=== PATIENT | female | born 1945 | race American Indian/Alaskan Native ===

== ENCOUNTER 2017-01-09 15:57 | Inpatient (IN) | payer MEDICARE ==
[2017-01-09] MEDS ORDERED: Sodium Chloride 0.9% 1,000 ML IV STA ×2 (16:05→18:07)
[2017-01-09] MEDS ORDERED: Atropine Sulfate 1 mg/ml Vial (1 ml) IVP ONE (16:05)
--- NOTE | 2017-01-09 16:07 | ED PDOC ---
HPI: SOB/CHF/COPD Time Seen by Provider: 01/09/17 16:03 Chief Complaint (Nursing): Respiratory Distress Chief Complaint (Provider): Respiratory Distress History Per: EMS History/Exam Limitations: clinical condition Onset/Duration Of Symptoms: Mins Current Symptoms Are (Timing): Still Present Additional Complaint(s): Lucita Gardner, a 71 year old female,with a past medical history of congestive heart failure and cardiac arrhythmia is brought into the ED via EMS for respiratory failure. As per EMS, the patient was found unresponsive by her longterm attendants. EMS state that chest compressions were started by longterm staff. However they state that the patient did have a pulse on their arrival but with agonal breathing and that is when she was intubated. PMD: Lorena Elmore - Risk Factors PE Risk Factors: Pos: CHF Past Medical History Reviewed: Historical Data, Nursing Documentation, Vital Signs Vital Signs: Last Vital Signs Temp 95 F L 01/09/17 19:00 Pulse 91 H 01/09/17 21:00 Resp 22 01/09/17 21:00 BP 111/53 L 01/09/17 21:00 Pulse Ox 98 01/09/17 21:00 - Medical History PMH: Anemia, Atrial Fibrillation, Cardia Arrhythmia, CHF, Dementia, Emphysema, HTN, Hypercholesterolemia Denies: Asthma, COPD, Chronic Kidney Disease - Family History Family History: States: Unknown Family Hx - Living Arrangements Living Arrangements: [facility] - Immunization History Hx Tetanus Toxoid Vaccination: No Hx Influenza Vaccination: Yes (2015) Hx Pneumococcal Vaccination: No - Home Medications Home Medications: Ambulatory Orders Medication Instructions Recorded Cyproheptadine [Periactin] 4 mg PO BIDPC tab 01/01/17 Digoxin [Lanoxin] 0.125 mg PO DAILY@1800 tab 01/01/17 Lactulose [Enulose] 20 gm PO DAILY udc 01/01/17 Metoprolol Tartrate [Lopressor] 12.5 mg PO BID tab 01/01/17 Rivaroxaban [Xarelto] 15 mg PO DAILY tab 01/01/17 hydrALAZINE [Apresoline] 25 mg PO BID tab 01/01/17 Acetaminophen [Tylenol 325mg tab] 650 mg PO Q4H PRN 01/09/17 Acetaminophen [Tylenol 325mg tab] 650 mg PO Q4H PRN 01/09/17 Mag Hydrox/Aluminum Hyd/Simeth 30 ml PO Q4H PRN 01/09/17 [Maalox Advanced Suspension] Magnesium Hydroxide [Milk Of 30 ml PO DAILY PRN 01/09/17 Magnesia] - Allergies Allergies/Adverse Reactions: Allergies Allergy/AdvReac Type Severity Reaction Status Date / Time No Known Allergies Allergy Verified 12/16/16 15:11 Review of Systems Review Of Systems: ROS cannot be obtained secondary to pt's inabilty to answer questions. Physical Exam - Reviewed Nursing Documentation Reviewed: Yes Vital Signs Reviewed: Yes - Physical Exam Appears: Positive for: In Acute Distress (obtunded, appears chronically ill and cachectic) Head Exam: Positive for: ATRAUMATIC, NORMOCEPHALIC Skin: Positive for: Dry (and cool extremities) Eye Exam: Positive for: PERRL (2mm) ENT: Positive for: Other (intubated ETT minimal secretions) Neck: Positive for: Trachea Midline (RIGHT EJ IV peripheral line in place) Cardiovascular/Chest: Positive for: Bradycardia, Irregularly Irregular. Negative for: Murmur Respiratory: Positive for: Rhonchi (equal breath sounds and chest rise), Respiratory Distress Gastrointestinal/Abdominal: Positive for: Soft, Other (PEG in place) Back: Positive for: Normal Inspection Extremity: Positive for: Normal ROM. Negative for: Deformity Lymphatic: Negative for: Adenopathy Neurologic/Psych: Positive for: Alert. Negative for: Motor/Sensory Deficits - Laboratory Results Result Diagrams: 01/09/17 16:15 01/09/17 16:15 - ECG ECG Rhythm: Positive for: Atrial Fibrillation (slow) O2 Sat by Pulse Oximetry: 100 Pulse Ox Interpretation: Normal (on vent) - Radiology X-Ray: Read By Radiologist - Critical Care Total Time (In Min): 45 Documented Critical Care: Time excludes all time spent performint seperately billable procedures Medical Decision Making Medical Decision Makin Initial Impression: 71 y/o female presenting with respiratory failure Initial Plan: * EKG * B-type natriuretic * CMP * Digoxin * Magnesium * Phosphorous * Troponin * Udip * CBC * Partial Thromboplastin * Chest x-ray * Atropine sulfate * NS 250ml Norepinephrine 4mg * NS 1000ml IV 1000mls/hr * Blood Culture * Urine Culture * Accucheck * Reevaluation Accession No. : [id number] Patient Name / ID : KEEGAN SNOW / [id number] Exam Date : 01/09/2017 16:06:22 ( Approved ) Study Comment : Sex / Age : F / 71Y Creator : Alfredito Kevin MD Dictator : Alfredito Kevin MD Farm Equipment Assembler : Soccer Coach : Alfredito Kevin MD Approver2 : Report Date : 01/09/2017 16:38:01 My Comment : HISTORY: suzi COMPARISON: No prior. FINDINGS: Endotracheal tube is identified placed terminating in the plane of the trachea below the level of clavicles. The tube is curved abutting the right side of the trachea. LUNGS: Medial left basilar airspace disease is identified. Trace disc disease is suspected at the right base. PLEURA: No right pleural effusion. No pneumothorax bilaterally. Trace of pleural effusion not excluded. CARDIOVASCULAR: Cardiomegaly is likely present. No pulmonary vascular derangement appreciable. OSSEOUS STRUCTURES: No significant abnormalities. VISUALIZED UPPER ABDOMEN: Normal. OTHER FINDINGS: None. IMPRESSION: Cardiomegaly is likely. No pulmonary derangement. Bibasilar airspace disease is identified. Trace left pleural effusion suspected. Atropine given for HR of 40s. Levophed started immediately for low BP, in addition to aggressive IVF hydration Previous chart quickly reviewed: dementia, CHF, hyperkalemia, atrial fib. Recent admission to [facility], [place]: severe malnutrition and renal insufficiency and PEG tube placed and pt dc'd to longterm 2 days ago. ABG demonstrate acidosis, elevated lactic acid, hypeglycemia and hyperkalemia. Albuterol neb, insulin IV, bicarb IV ordered. Labs demonstrated again renal insufficiency, hyperglycemia, anemia, and hyperkalemia. JANE Reyes [employer] and [facility] Attempted to call Next of Kin John Paul Garcia and Contact Yasmin Garcia at phone numbers available to me at the time and unable to get through to contacts. Scribe Attestation Documented by Ester Ocasio acting as a scribe for Marline Palacio MD. Provider Attestation All medical record entries made by the Scribe were at my direction and personally dictated by me. I have reviewed the chart and agree that the record accurately reflects my personal performance of the history, physical exam, medical decision making, and the department course for this patient. I have also personally directed, reviewed, and agree with the discharge instructions and disposition. Disposition - Clinical Impression Clinical Impression: Hyperkalemia, Dehydration, Respiratory failure, DKA (diabetic ketoacidoses), Septic shock - Disposition Disposition Time: 17:00 Condition: CRITICAL - Pt Status Changed To: Hospital Disposition Of: Inpatient - Admit Certification Admit to Inpatient:: After my assessment, the patient will require hospitalization for at least two midnights. This is because of the severity of symptoms shown, intensity of services needed, and/or the medical risk in this patient being treated as an outpatient. - POA Present On Arrival: Poor Glycemic Control Proc: Central Venous Access - Time Performed Time Performed: 17:00 - Time Out Time Out: Side verified, Site verified, Patient ID confirmed, Sterile procedures obs. - Procedure Procedure: Central Line placement: Left Technique:: Ultrasound guidance (static), Femoral vein (LEFT) - Consent obtained Consent obtained: Emergent consent implied - Performed by Performed by: Attending Physician - Indications Indication(s):: Mult.intravenous meds, Centrally admin. meds, Rapid fluid infusion Contraindications: None Tube type:: Triple lumen - Number of Attempts Attempts: 2 (initially attempted RIGHT femoral but unable to forward cath) - Line sutured in place Line sutured in place:: Yes - Patient tolerated procedure Patient Tolerated Procedure:: Well
[2017-01-09 16:18] LABS: ABG ALLEN TEST YES; ARTERIAL BLOOD GAS HCO3 28.9 mmol/L (21-28); ARTERIAL BLOOD GAS PH 7.23 (7.35-7.45); ARTERIAL BLOOD GAS PO2 299 mm/Hg (80-100)
[2017-01-09] MEDS ORDERED: Sodium Bicarbonate 7.5% (0.9 MEQ/ML) 50ML INJ IV STA (16:20)
[2017-01-09] MEDS ORDERED: Albuterol 0.083% Inhal Sol (2.5 mg/3 mL) UD IH STA (16:21)
[2017-01-09] MEDS ORDERED: Insulin Regular 100 units/ml IVP STA (16:21)
[2017-01-09] MEDS ORDERED: Albuterol 0.083% Inhal Sol (2.5 mg/3 mL) UD ONE (16:29)
--- NOTE | 2017-01-09 16:39 | RAD ---
HISTORY: suzi COMPARISON: No prior. FINDINGS: Endotracheal tube is identified placed terminating in the plane of the trachea below the level of clavicles. The tube is curved abutting the right side of the trachea. LUNGS: Medial left basilar airspace disease is identified. Trace disc disease is suspected at the right base. PLEURA: No right pleural effusion. No pneumothorax bilaterally. Trace of pleural effusion not excluded. CARDIOVASCULAR: Cardiomegaly is likely present. No pulmonary vascular derangement appreciable. OSSEOUS STRUCTURES: No significant abnormalities. VISUALIZED UPPER ABDOMEN: Normal. OTHER FINDINGS: None. IMPRESSION: Cardiomegaly is likely. No pulmonary derangement. Bibasilar airspace disease is identified. Trace left pleural effusion suspected.
[2017-01-09 16:42] LABS: BASO % 0.3 % (0.0-2.0); EOS % 0.2 % (0.0-4.0); LYMPH % 26.3 % (20.0-40.0); MEAN CELL VOLUME 95.7 fl (81.0-99.0); MEAN CORPUSCULAR HEMOGLOBIN 29.8 pg (27.0-31.0); MEAN CORPUSCULAR HGB CONC 31.1 g/dL (33.0-37.0); MEAN PLATELET VOLUME 8.8 fl (7.2-11.7); MONO # 0.2 K/uL (0.0-0.8); MONO % 5.5 % (0.0-10.0); NEUT # 2.6 K/uL (1.8-7.0); NEUT % 67.7 % (50.0-75.0); NRBC % 0.5 % (0.0-0.0); RED CELL DISTRIBUTION WIDTH 20.4 % (11.5-14.5); WHITE BLOOD COUNT 3.8 K/uL (4.8-10.8)
[2017-01-09 16:46] LABS: PARTIAL THROMBOPLASTIN TIME 30.3 Seconds (25.6-37.1)
[2017-01-09 16:49] LABS: ALB/GLOB RATIO 0.8 (1.0-2.1); BILIRUBIN,TOTAL 0.2 mg/dl (0.2-1.3); CALCIUM 8.9 mg/dL (8.4-10.2); MAGNESIUM 2.8 MG/DL (1.6-2.3); PHOSPHOROUS 7.5 mg/dl (2.5-4.5); TOTAL PROTEIN 5.9 G/DL (6.3-8.2)
[2017-01-09 17:01] LABS: TROPONIN I 0.099 ng/mL (0.00-0.120)
[2017-01-09 17:10] LABS: POTASSIUM 6.8 MMOL/L (3.6-5.0)
[2017-01-09 17:29] LABS: RBC URINE 29 /hpf (0-3); URINE BACTERIA MOD (<OCC); URINE BILIRUBIN NEGATIVE (NEGATIVE); URINE COLOR AMBER (YELLOW); URINE GLUCOSE (UA) 50 mg/dL (Normal); URINE KETONE NEGATIVE (NEGATIVE); URINE LEUKOCYTE ESTERASE LARGE Leu/uL (Negative); URINE PROTEIN 100 mg/dL (NEGATIVE); URINE UROBILINOGEN 0.2-1.0 mg/dL (0.2-1.0); WBC URINE 92 /hpf (0-5)
[2017-01-09 17:30] LABS: URINE BLOOD MODERATE (NEGATIVE)
[2017-01-09] MEDS ORDERED: Calcium Gluconate 4.65 mEq/10 ml Inj IV ONE (17:45)
[2017-01-09] MEDS ORDERED: Sod Polystyrene Sulf 15 gm/60 ml Susp PO ONE (18:07)
[2017-01-09] MEDS ORDERED: Sodium Chloride 0.9% 1,000 ML IV SCH (18:15)
--- NOTE | 2017-01-09 18:21 | CP.CCUPN ---
CCU Subjective - Physician Review Subjective (Free Text): ICU admission and consultation: [id number] transferred from [place] after being found unresponsive, with agonal breathing, had no loss of pulses , but intubated by EMS and CPR with chest compressions administered. Remained hypotensive, given 1000ml NSS fluid challenge initially and additional 1.5 L Saline as well, IV Bicarb 1 amp given, started on Levophed drip. Atropine 1 mg given for bradycardia with HR 46. Other vitals and I/O's reviewed. ALLERGIES: NKDA Home meds: Periactin, Digoxin, Apresoline, Lactulose, MgOH, Lopressor, Xarelto. ROS: Unobtainable due to comatose state and intubation. No other pertinent negs or positives on 10+ system review. PMSFH: Recent PEG placement at and discharged from [facility] for severe malnutrition; bed bound, CHF, A Fib, Anemia, Atrial Fibrillation, severe Dementia, Emphysema, HTN, Hypercholesterolemia All Nursing and physician documentation reviewed to date; no new pertinent info noted relevant to current medical problems. 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 CXR: ETT position OK above collin, Bi- basilar interstitial changes. MAJOR PROBLEMS: 1. Acute Hypercarbic Resp Failure, 2 metabolic Encephalopathy, r/o Toxic Drug effects (Cyprohepatadine) versus CHF and Pneumonia 2. Bilateral Pneumonia, suspect aspiration event 3. Azotemia with Dehydration and Hyperkalemia 4. Chronic Disease Anemia, r/o acute GI Blood loss. 5. A Fib with slow VR, r/o Digoxin / Lopressor effect-Toxicity 6. Transaminitis / Abnormal LFTs PLAN: 1. Check repeat ABG on current MV setting: AC 14, breathing at 14m 300ml TV, 50% oxygen. Further adjustments pending repeat pCO2 level and pO2 level assessment. Avoid too rapid correction in pCO2. 2. CT Brain. Hold Xarelto. Neurochecks Q2H, Seizure precautions, HOB Elevation. 3. Check repeat BMP, serial Lactates till normalized. 4. Panculture, start empiric abx coverage against healthcare-ass[facility] organisms. 5. Repeat Accucheck BS levels, unclear if EMS administered D50 for unresponsiveness, versus occult h/o DM and has component of DKA or HNKC state. 6. Hold all [facility] meds for now. 7. Check Digoxin level, watch K levels, may need Digibind. 8. Kayexalate administration. Give supplemental calcium. 9. ECHO 10. Check old medical records from previous hospitalizations at [facility]. 11. Full code status for now as per family. CCU Objective - Vital Signs / Intake & Output Vital Signs (Last 4 hours): Vital Signs Temp Pulse Resp BP Pulse Ox 01/09/17 17:50 96.3 F L 01/09/17 17:43 86 16 98/60 L 100 01/09/17 17:40 86 16 108/64 100 01/09/17 16:15 14 99 01/09/17 15:59 49 L 16 88/64 L Intake and Output (Last 8hrs): Intake & Output 01/09/17 01/09/17 01/09/17 06:59 14:59 22:59 Weight 100 lb - Physical Exam Physical Exam Limitations: Positive for: Altered Mental Status Head: Positive for: Normocephalic Pupils: Positive for: PERRL Extroacular Muscles: Positive for: EOMI Conjunctiva: Positive for: Normal. Negative for: Icteric Mouth: Positive for: Moist Mucous Membranes Neck: Positive for: JVD. Negative for: Meningeal Signs Respiratory/Chest: Positive for: Decreased Breath Sounds, Rales. Negative for: Accessory Muscle Use, Wheezes Cardiovascular: Positive for: Irregular Rhythm, Bradycardic. Negative for: Murmurs, Rub Abdomen: Positive for: Normal Bowel Sounds, Other (PEG intact). Negative for: Tenderness, Distention Lower Extremity: Positive for: NORMAL PULSES. Negative for: CALF TENDERNESS, Cyanosis Neurological: Positive for: Other (not following any commands) Skin: Positive for: Warm. Negative for: Rashes - Medications Active Medications: Active Medications Generic Name Dose Route Start Last Admin Trade Name Freq PRN Reason Stop Dose Admin Calcium Gluconate 4.6 meq 01/09/17 17:45 Calcium Gluconate IV 01/09/17 17:46 ONCE ONE Famotidine 20 mg 01/09/17 21:00 Pepcid IVP Q12 LINA Norepinephrine Bitartrate 4 mg 254 mls @ 7.62 mls/hr 01/09/17 16:15 01/09/17 16:00 / Sodium Chloride IV 2 mcg/min .Q24H LINA 7.62 mls/hr Protocol Administration 2 MCG/MIN Vancomycin HCl 750 mg/ Sodium 250 mls @ 166.667 mls/hr 01/09/17 17:54 Chloride IVPB 01/09/17 19:23 STAT STA Piperacillin Sod/Tazobactam 100 mls @ 100 mls/hr 01/09/17 17:54 Sod 2.25 gm/ Sodium Chloride IV 01/09/17 18:53 STAT STA Sodium Chloride 700 mls @ 700 mls/hr 01/09/17 18:06 Sodium Chloride 0.9% IV 01/09/17 19:05 .Q1H STA Sodium Chloride 1,000 mls @ 1,000 mls/hr 01/09/17 18:07 Sodium Chloride 0.9% IV 01/09/17 19:06 .Q1H STA Sodium Chloride 1,000 mls @ 100 mls/hr 01/09/17 18:15 Sodium Chloride 0.9% IV 01/10/17 18:11 .Q10H LINA Vancomycin HCl 1 gm/ Sodium 250 mls @ 166.667 mls/hr 01/09/17 17:53 Chloride IVPB 01/09/17 19:22 ONCE ONE Piperacillin Sod/Tazobactam 100 mls @ 100 mls/hr 01/09/17 22:00 Sod 2.25 gm/ Sodium Chloride IVPB Q6 [facility] Insulin Human Regular 0 units 01/09/17 23:00 Humulin R SC ACCU-CHECK [facility] Protocol Sodium Polystyrene Sulfonate 30 gm 01/09/17 18:07 Kayexalate Oral Susp PO 01/09/17 18:08 ONCE ONE - Patient Studies Lab Studies: Lab Studies 01/09/17 01/09/17 01/09/17 Range/Units 17:02 16:20 16:20 WBC (4.8-10.8) K/uL RBC (3.80-5.20) Mil/uL Hgb (12.0-16.0) g/dL Hct (34.0-47.0) % MCV (81.0-99.0) fl MCH (27.0-31.0) pg MCHC (33.0-37.0) g/dL RDW (11.5-14.5) % Plt Count (130-400) K/uL MPV (7.2-11.7) fl Neut % (Auto) (50.0-75.0) % Lymph % (Auto) (20.0-40.0) % [place] % (Auto) (0.0-10.0) % Eos % (Auto) (0.0-4.0) % Baso % (Auto) (0.0-2.0) % Neut # (1.8-7.0) K/uL Lymph # (1.0-4.3) K/uL [place] # (0.0-0.8) K/uL Eos # (0.0-0.7) K/uL Baso # (0.0-0.2) K/uL PT 11.0 (9.8-13.1) Seconds INR 1.1 (0.9-1.2) APTT 30.3 (25.6-37.1) Seconds pCO2 (35-45) mm/Hg pO2 (80-100) mm/Hg HCO3 (21-28) mmol/L ABG pH (7.35-7.45) ABG Total CO2 (22-28) mmol/L ABG O2 Saturation (95-98) % ABG Base Excess (-2.0-3.0) mmol/L Rakan Test ABG Potassium (3.6-5.2) mmol/L A-a O2 Difference mm/Hg Sodium (132-148) mmol/L Chloride (98-107) mmol/L Glucose (65-105) mg/dL Lactate (0.7-2.1) mmol/L FiO2 % Crit Value Called To Crit Value Called By Crit Value Read Back Blood Gas Notified Time Potassium (3.6-5.0) MMOL/L Carbon Dioxide (22-30) mmol/L Anion Gap (10-20) BUN (7-17) mg/dl Creatinine (0.7-1.2) mg/dL Est GFR ( Amer) Est GFR (Non-Af Amer) Random Glucose (65-105) mg/dL Calcium (8.4-10.2) mg/dL Phosphorus (2.5-4.5) mg/dl Magnesium (1.6-2.3) MG/DL Total Bilirubin (0.2-1.3) mg/dl AST (14-36) U/L ALT (9-52) U/L Alkaline Phosphatase (38-126) U/L Troponin I (0.00-0.120) ng/mL NT-Pro-B Natriuret Pep (0-900) pg/ml Total Protein (6.3-8.2) G/DL Albumin (3.5-5.0) g/dL Globulin (2.2-3.9) gm/dL Albumin/Globulin Ratio (1.0-2.1) Arterial Blood Potassium (3.6-5.2) mmol/L Urine Color Lisa (YELLOW) Urine Clarity Cloudy (Clear) Urine pH 5.0 (5.0-8.0) Ur Specific [place] 1.018 (1.003-1.030) Urine Protein 100 (NEGATIVE) mg/dL Urine Glucose (UA) 50 (Normal) mg/dL Urine Ketones Negative (NEGATIVE) mg/dL Urine Blood Moderate (NEGATIVE) Urine Nitrate Negative (NEGATIVE) Urine Bilirubin Negative (NEGATIVE) Urine Urobilinogen 0.2-1.0 (0.2-1.0) mg/dL Ur Leukocyte Esterase Large (Negative) Nabeel/uL Urine RBC (Auto) 29 H (0-3) /hpf Urine Microscopic WBC 92 H (0-5) /hpf Ur Squamous Epith Cells 1 (0-5) /hpf Urine Bacteria Mod H (<OCC) Hyaline Casts 0-2 (0-2) /hpf Digoxin (0.8-2.0) ng/mL Blood Type O POSITIVE Antibody Screen Negative BBK History Checked Patient has bt 01/09/17 01/09/17 01/09/17 Range/Units 16:20 16:15 16:15 WBC 3.8 L (4.8-10.8) K/uL RBC 2.82 L (3.80-5.20) Mil/uL Hgb 8.4 L (12.0-16.0) g/dL Hct 27.0 L (34.0-47.0) % MCV 95.7 (81.0-99.0) fl MCH 29.8 (27.0-31.0) pg MCHC 31.1 L (33.0-37.0) g/dL RDW 20.4 H (11.5-14.5) % Plt Count 279 (130-400) K/uL MPV 8.8 (7.2-11.7) fl Neut % (Auto) 67.7 (50.0-75.0) % Lymph % (Auto) 26.3 (20.0-40.0) % [place] % (Auto) 5.5 (0.0-10.0) % Eos % (Auto) 0.2 (0.0-4.0) % Baso % (Auto) 0.3 (0.0-2.0) % Neut # 2.6 (1.8-7.0) K/uL Lymph # 1.0 (1.0-4.3) K/uL [place] # 0.2 (0.0-0.8) K/uL Eos # 0.0 (0.0-0.7) K/uL Baso # 0.0 (0.0-0.2) K/uL PT (9.8-13.1) Seconds INR (0.9-1.2) APTT (25.6-37.1) Seconds pCO2 (35-45) mm/Hg pO2 (80-100) mm/Hg HCO3 (21-28) mmol/L ABG pH (7.35-7.45) ABG Total CO2 (22-28) mmol/L ABG O2 Saturation (95-98) % ABG Base Excess (-2.0-3.0) mmol/L Rakan Test ABG Potassium (3.6-5.2) mmol/L A-a O2 Difference mm/Hg Sodium 143 (132-148) mmol/L Chloride 98 (98-107) mmol/L Glucose (65-105) mg/dL Lactate (0.7-2.1) mmol/L FiO2 % Crit Value Called To Crit Value Called By Crit Value Read Back Blood Gas Notified Time Potassium 6.8 H* (3.6-5.0) MMOL/L Carbon Dioxide 31 H (22-30) mmol/L Anion Gap 21 H (10-20) BUN 54 H (7-17) mg/dl Creatinine 1.3 H (0.7-1.2) mg/dL Est GFR ( Amer) 49 Est GFR (Non-Af Amer) 40 Random Glucose 404 H* (65-105) mg/dL Calcium 8.9 (8.4-10.2) mg/dL Phosphorus 7.5 H (2.5-4.5) mg/dl Magnesium 2.8 H (1.6-2.3) MG/DL Total Bilirubin 0.2 (0.2-1.3) mg/dl AST 284 H D (14-36) U/L ALT 138 H (9-52) U/L Alkaline Phosphatase 139 H (38-126) U/L Troponin I 0.0990 (0.00-0.120) ng/mL NT-Pro-B Natriuret Pep 93224 H (0-900) pg/ml Total Protein 5.9 L (6.3-8.2) G/DL Albumin 2.7 L (3.5-5.0) g/dL Globulin 3.2 (2.2-3.9) gm/dL Albumin/Globulin Ratio 0.8 L (1.0-2.1) Arterial Blood Potassium (3.6-5.2) mmol/L Urine Color (YELLOW) Urine Clarity (Clear) Urine pH (5.0-8.0) Ur Specific [place] (1.003-1.030) Urine Protein (NEGATIVE) mg/dL Urine Glucose (UA) (Normal) mg/dL Urine Ketones (NEGATIVE) mg/dL Urine Blood (NEGATIVE) Urine Nitrate (NEGATIVE) Urine Bilirubin (NEGATIVE) Urine Urobilinogen (0.2-1.0) mg/dL Ur Leukocyte Esterase (Negative) Nabeel/uL Urine RBC (Auto) (0-3) /hpf Urine Microscopic WBC (0-5) /hpf Ur Squamous Epith Cells (0-5) /hpf Urine Bacteria (<OCC) Hyaline Casts (0-2) /hpf Digoxin 1.7 (0.8-2.0) ng/mL Blood Type Antibody Screen BBK History Checked 01/09/17 Range/Units 16:10 WBC (4.8-10.8) K/uL RBC (3.80-5.20) Mil/uL Hgb (12.0-16.0) g/dL Hct (34.0-47.0) % MCV (81.0-99.0) fl MCH (27.0-31.0) pg MCHC (33.0-37.0) g/dL RDW (11.5-14.5) % Plt Count (130-400) K/uL MPV (7.2-11.7) fl Neut % (Auto) (50.0-75.0) % Lymph % (Auto) (20.0-40.0) % [place] % (Auto) (0.0-10.0) % Eos % (Auto) (0.0-4.0) % Baso % (Auto) (0.0-2.0) % Neut # (1.8-7.0) K/uL Lymph # (1.0-4.3) K/uL [place] # (0.0-0.8) K/uL Eos # (0.0-0.7) K/uL Baso # (0.0-0.2) K/uL PT (9.8-13.1) Seconds INR (0.9-1.2) APTT (25.6-37.1) Seconds pCO2 85 H* (35-45) mm/Hg pO2 299 H (80-100) mm/Hg HCO3 28.9 H (21-28) mmol/L ABG pH 7.23 L (7.35-7.45) ABG Total CO2 38.2 H (22-28) mmol/L ABG O2 Saturation 100.5 H (95-98) % ABG Base Excess 5.0 H (-2.0-3.0) mmol/L Rakan Test Yes ABG Potassium 6.1 H (3.6-5.2) mmol/L A-a O2 Difference 308.0 mm/Hg Sodium 139.0 (132-148) mmol/L Chloride 104.0 (98-107) mmol/L Glucose 420 H* (65-105) mg/dL Lactate 4.6 H* (0.7-2.1) mmol/L FiO2 100.0 % Crit Value Called To Dr javier lares Crit Value Called By 23 Crit Value Read Back Y Blood Gas Notified Time 1617 Potassium (3.6-5.0) MMOL/L Carbon Dioxide (22-30) mmol/L Anion Gap (10-20) BUN (7-17) mg/dl Creatinine (0.7-1.2) mg/dL Est GFR ( Amer) Est GFR (Non-Af Amer) Random Glucose (65-105) mg/dL Calcium (8.4-10.2) mg/dL Phosphorus (2.5-4.5) mg/dl Magnesium (1.6-2.3) MG/DL Total Bilirubin (0.2-1.3) mg/dl AST (14-36) U/L ALT (9-52) U/L Alkaline Phosphatase (38-126) U/L Troponin I (0.00-0.120) ng/mL NT-Pro-B Natriuret Pep (0-900) pg/ml Total Protein (6.3-8.2) G/DL Albumin (3.5-5.0) g/dL Globulin (2.2-3.9) gm/dL Albumin/Globulin Ratio (1.0-2.1) Arterial Blood Potassium 6.1 H (3.6-5.2) mmol/L Urine Color (YELLOW) Urine Clarity (Clear) Urine pH (5.0-8.0) Ur Specific [place] (1.003-1.030) Urine Protein (NEGATIVE) mg/dL Urine Glucose (UA) (Normal) mg/dL Urine Ketones (NEGATIVE) mg/dL Urine Blood (NEGATIVE) Urine Nitrate (NEGATIVE) Urine Bilirubin (NEGATIVE) Urine Urobilinogen (0.2-1.0) mg/dL Ur Leukocyte Esterase (Negative) Nabeel/uL Urine RBC (Auto) (0-3) /hpf Urine Microscopic WBC (0-5) /hpf Ur Squamous Epith Cells (0-5) /hpf Urine Bacteria (<OCC) Hyaline Casts (0-2) /hpf Digoxin (0.8-2.0) ng/mL Blood Type Antibody Screen BBK History Checked Laboratory Results - last 24 hr 01/09/17 01/09/17 01/09/17 16:10 16:15 16:15 WBC 3.8 L RBC 2.82 L Hgb 8.4 L Hct 27.0 L MCV 95.7 MCH 29.8 MCHC 31.1 L RDW 20.4 H Plt Count 279 MPV 8.8 Neut % (Auto) 67.7 Lymph % (Auto) 26.3 [place] % (Auto) 5.5 Eos % (Auto) 0.2 Baso % (Auto) 0.3 Neut # 2.6 Lymph # 1.0 [place] # 0.2 Eos # 0.0 Baso # 0.0 PT INR APTT pCO2 85 H* pO2 299 H HCO3 28.9 H ABG pH 7.23 L ABG Total CO2 38.2 H ABG O2 Saturation 100.5 H ABG Base Excess 5.0 H Rakan Test Yes ABG Potassium 6.1 H A-a O2 Difference 308.0 Sodium 139.0 143 Chloride 104.0 98 Glucose 420 H* Lactate 4.6 H* FiO2 100.0 Crit Value Called To Dr javier lares Crit Value Called By 23 Crit Value Read Back Y Blood Gas Notified Time 1617 Potassium 6.8 H* Carbon Dioxide 31 H Anion Gap 21 H BUN 54 H Creatinine 1.3 H Est GFR ( Amer) 49 Est GFR (Non-Af Amer) 40 Random Glucose 404 H* Calcium 8.9 Phosphorus 7.5 H Magnesium 2.8 H Total Bilirubin 0.2 AST 284 H D ALT 138 H Alkaline Phosphatase 139 H Troponin I 0.0990 NT-Pro-B Natriuret Pep 22980 H Total Protein 5.9 L Albumin 2.7 L Globulin 3.2 Albumin/Globulin Ratio 0.8 L Arterial Blood Potassium 6.1 H Urine Color Urine Clarity Urine pH Ur Specific [place] Urine Protein Urine Glucose (UA) Urine Ketones Urine Blood Urine Nitrate Urine Bilirubin Urine Urobilinogen Ur Leukocyte Esterase Urine RBC (Auto) Urine Microscopic WBC Ur Squamous Epith Cells Urine Bacteria Hyaline Casts Digoxin Blood Type Antibody Screen BBK History Checked 01/09/17 01/09/17 01/09/17 16:20 16:20 16:20 WBC RBC Hgb Hct MCV MCH MCHC RDW Plt Count MPV Neut % (Auto) Lymph % (Auto) [place] % (Auto) Eos % (Auto) Baso % (Auto) Neut # Lymph # [place] # Eos # Baso # PT 11.0 INR 1.1 APTT 30.3 pCO2 pO2 HCO3 ABG pH ABG Total CO2 ABG O2 Saturation ABG Base Excess Rakan Test ABG Potassium A-a O2 Difference Sodium Chloride Glucose Lactate FiO2 Crit Value Called To Crit Value Called By Crit Value Read Back Blood Gas Notified Time Potassium Carbon Dioxide Anion Gap BUN Creatinine Est GFR ( Amer) Est GFR (Non-Af Amer) Random Glucose Calcium Phosphorus Magnesium Total Bilirubin AST ALT Alkaline Phosphatase Troponin I NT-Pro-B Natriuret Pep Total Protein Albumin Globulin Albumin/Globulin Ratio Arterial Blood Potassium Urine Color Urine Clarity Urine pH Ur Specific [place] Urine Protein Urine Glucose (UA) Urine Ketones Urine Blood Urine Nitrate Urine Bilirubin Urine Urobilinogen Ur Leukocyte Esterase Urine RBC (Auto) Urine Microscopic WBC Ur Squamous Epith Cells Urine Bacteria Hyaline Casts Digoxin 1.7 Blood Type O POSITIVE Antibody Screen Negative BBK History Checked Patient has bt 01/09/17 17:02 WBC RBC Hgb Hct MCV MCH MCHC RDW Plt Count MPV Neut % (Auto) Lymph % (Auto) [place] % (Auto) Eos % (Auto) Baso % (Auto) Neut # Lymph # [place] # Eos # Baso # PT INR APTT pCO2 pO2 HCO3 ABG pH ABG Total CO2 ABG O2 Saturation ABG Base Excess Rakan Test ABG Potassium A-a O2 Difference Sodium Chloride Glucose Lactate FiO2 Crit Value Called To Crit Value Called By Crit Value Read Back Blood Gas Notified Time Potassium Carbon Dioxide Anion Gap BUN Creatinine Est GFR ( Amer) Est GFR (Non-Af Amer) Random Glucose Calcium Phosphorus Magnesium Total Bilirubin AST ALT Alkaline Phosphatase Troponin I NT-Pro-B Natriuret Pep Total Protein Albumin Globulin Albumin/Globulin Ratio Arterial Blood Potassium Urine Color Lisa Urine Clarity Cloudy Urine pH 5.0 Ur Specific [place] 1.018 Urine Protein 100 Urine Glucose (UA) 50 Urine Ketones Negative Urine Blood Moderate Urine Nitrate Negative Urine Bilirubin Negative Urine Urobilinogen 0.2-1.0 Ur Leukocyte Esterase Large Urine RBC (Auto) 29 H Urine Microscopic WBC 92 H Ur Squamous Epith Cells 1 Urine Bacteria Mod H Hyaline Casts 0-2 Digoxin Blood Type Antibody Screen BBK History Checked Radiology Interpretations (Free Text): CXR: ETT position OK above collin, Bi- basilar interstitial changes. ( my interp ) EKG/Cardiology Studies: EKG: A Fib, 46 / min, LAHB, RBBB, old AWMI, PACs. ( my interp) Fingerstick Blood Sugar Results: 328 Review of Systems - Review of Systems Systems not reviewed;Unavailable: Intubated Critical Care Progress Note - Ventilator Checklist Head of Bed 30 Degrees: Yes Daily Sedation Vacation: No Daily Assessment of Readiness to Wean: No Daily Spontaneous Breathing Trial: No PUD Prophalyxis: Yes DVT Prophylaxis: Yes Oral Care with Chlorhexidine Gluconate {CHG}: Yes - Vent Settings MODE:: ASSIST CONTROL TIDAL VOLUME:: 300 RESP RATE:: 14 FIO2:: 50 PEEP:: 0 - Extremities/Vascular Does the Patient have a Central Venous Catheter?: Yes Insertion Site: Femoral Vein Does the Patient need a Central Venous Catheter?: Yes Does the Patient have a Atkins Catheter?: Yes Does the Patient need a Atkins Catheter?: Yes Catheter Insertion Criteria: Need for accurate measurement of output in critically ill patient - Restraints Justification for Restraints: High risk for self extubation - Prophylaxis GI Prophylaxis GI: Pepsid - Prophylaxis DVT Prophylaxis DVT: SCDs
[2017-01-09 22:34] LABS: CALCIUM 8.4 mg/dL (8.4-10.2); POTASSIUM 4.7 MMOL/L (3.6-5.0)
[2017-01-09] MEDS: Insulin Regular 100 units/ml SC SCH (23:31)
[2017-01-09 23:52] LABS: TROPONIN I 0.147 ng/mL (0.00-0.120)
[2017-01-10] MEDS: Sodium Chloride 0.9% 1,000 ML IV SCH ×2 (01:07→09:00)
[2017-01-10 03:02] VITALS: BMI 18.8
[2017-01-10 05:25] LABS: ABG ALLEN TEST YES; ABG MECHANICAL RATE 14; ARTERIAL BLOOD GAS HCO3 30.2 mmol/L (21-28); ARTERIAL BLOOD GAS MODE A/C; ARTERIAL BLOOD GAS PH 7.36 (7.35-7.45); ARTERIAL BLOOD GAS PO2 79 mm/Hg (80-100); ATERIAL BLOOD GAS PEEP 0
[2017-01-10] MEDS: Insulin Regular 100 units/ml SC SCH ×4 (06:15→23:03)
[2017-01-10 06:16] LABS: PARTIAL THROMBOPLASTIN TIME 30.3 Seconds (25.6-37.1)
[2017-01-10 06:20] LABS: ALB/GLOB RATIO 0.8 (1.0-2.1); BILIRUBIN,TOTAL 0.3 mg/dl (0.2-1.3); CALCIUM 8.1 mg/dL (8.4-10.2); POTASSIUM 4.5 MMOL/L (3.6-5.0); TOTAL PROTEIN 6.1 G/DL (6.3-8.2)
[2017-01-10 06:21] LABS: BASO % 0.1 % (0.0-2.0); HEMATOCRIT 23.7 % (34.0-47.0); LYMPH # 0.4 K/uL (1.0-4.3); LYMPH % 9.1 % (20.0-40.0); MEAN CELL VOLUME 93.2 fl (81.0-99.0); MEAN CORPUSCULAR HEMOGLOBIN 29.9 pg (27.0-31.0); MEAN CORPUSCULAR HGB CONC 32.1 g/dL (33.0-37.0); MEAN PLATELET VOLUME 8.5 fl (7.2-11.7); MONO # 0.4 K/uL (0.0-0.8); NEUT # 3.9 K/uL (1.8-7.0); NEUT % 82.8 % (50.0-75.0); NRBC % 0.2 % (0.0-0.0); PLATELET COUNT 199 K/uL (130-400); WHITE BLOOD COUNT 4.8 K/uL (4.8-10.8)
[2017-01-10 06:32] LABS: TROPONIN I 0.24 ng/mL (0.00-0.120)
[2017-01-10 07:38] LABS: NEUTROPHIL 87 % (42-75); TOTAL CELLS COUNTED 100
[2017-01-10] MEDS ORDERED: Influenza Vaccine 18yr & older 0.5 ML/45 MCG SYR IM ONE (08:00)
--- NOTE | 2017-01-10 08:23 | CT ---
PROCEDURE: CT HEAD WITHOUT CONTRAST. HISTORY: ams COMPARISON: None available. TECHNIQUE: Axial computed tomography images were obtained through the head/brain without intravenous contrast. Radiation dose: Total exam DLP = 819.64 mGy-cm. This CT exam was performed using one or more of the following dose reduction techniques: Automated exposure control, adjustment of the mA and/or kV according to patient size, and/or use of iterative reconstruction technique. FINDINGS: HEMORRHAGE: No intracranial hemorrhage. BRAIN: Diffuse expansion of the ventriculosulcal and cisternal spaces is appreciated with relatively prominent white matter lucency compatible with diffuse cerebral atrophy and chronic microangiopathy. There is no mass effect. There is no suspicious extra-axial fluid collection identified. The midline brain anatomy appears diffusely unremarkable including the posterior fossa contents. VENTRICLES: Unremarkable. No hydrocephalus. CALVARIUM: Unremarkable. PARANASAL SINUSES: Unremarkable as visualized. No significant inflammatory changes. MASTOID AIR CELLS: Unremarkable as visualized. No inflammatory changes. OTHER FINDINGS: None. IMPRESSION: Age related neuro neuro degenerative changes are identified without acute intracranial findings as discussed above. Follow up CT or MRI are available if clinically warranted.
[2017-01-10] MEDS ORDERED: Acetaminophen 650mg/20.3ml solution UD PO PRN (08:40)
[2017-01-10] MEDS ORDERED: Pneumococcal 23-Valent Vaccine IM ONE (09:00)
--- NOTE | 2017-01-10 10:49 | RAD ---
HISTORY: intubated COMPARISON: Portable chest 01/09/2017. FINDINGS: Endotracheal tube unchanged in position. LUNGS: Increasing infiltrate is identified in the left in the right perihilar regions with limited retrocardiac infiltrate or atelectasis persisting. PLEURA: Trace left pleural effusions not excluded. None is seen the right. No pneumothorax bilaterally. CARDIOVASCULAR: Stable cardiomegaly noted. No pulmonary vascular derangement grossly evident. OSSEOUS STRUCTURES: No significant abnormalities. VISUALIZED UPPER ABDOMEN: Normal. OTHER FINDINGS: None. IMPRESSION: Interval worsening of left perihilar infiltrate with minimal right perihilar infiltrate now evident. Left basilar airspace disease stable. Stable cardiomegaly.
--- NOTE | 2017-01-10 11:13 | CP.PCM.CON ---
Past Patient History - Infectious Disease Hx of Infectious Diseases: None - Tetanus Immunizations Tetanus Immunization: Unknown - Past Medical History & Family History Past Medical History?: Yes - Past Social History Smoking Status: unknown - CARDIAC Hx Atrial Fibrillation: Yes Hx Cardia Arrhythmia: Yes Hx Congestive Heart Failure: Yes Hx Hypercholesterolemia: Yes Hx Hypertension: Yes - PULMONARY Hx Asthma: No Hx Chronic Obstructive Pulmonary Disease (COPD): No Hx Emphysema: Yes - NEUROLOGICAL Hx Dementia: Yes - HEENT Hx HEENT Problems: Yes Hx Cataracts: Yes (both eyes) - RENAL Hx Chronic Kidney Disease: No - ENDOCRINE/METABOLIC Hx Endocrine Disorders: No - HEMATOLOGICAL/ONCOLOGICAL Hx Anemia: Yes - INTEGUMENTARY Hx Dermatological Problems: No - MUSCULOSKELETAL/RHEUMATOLOGICAL Hx Musculoskeletal Disorders: Yes Hx Falls: No (unknown) Hx Unsteady Gait: Yes - GASTROINTESTINAL Hx Gastrointestinal Disorders: Yes Other/Comment: patient is very anorectic. >with PEG - GENITOURINARY/GYNECOLOGICAL Hx Genitourinary Disorders: No - PSYCHIATRIC Hx Psychophysiologic Disorder: No Hx Substance Use: (unknown) - SURGICAL HISTORY Hx Surgeries: Yes Hx Cataract Extraction: Yes (2014) Hx Eye Surgery: Yes - ANESTHESIA Hx Anesthesia: Yes Hx Anesthesia Reactions: No Hx Malignant Hyperthermia: No Meds Allergies/Adverse Reactions: Allergies Allergy/AdvReac Type Severity Reaction Status Date / Time No Known Allergies Allergy Verified 12/16/16 15:11 - Medications Medications: Current Medications Acetaminophen (Tylenol 650mg/20.3ml Solution Ud) 650 mg PO Q6 PRN PRN Reason: fever Last Admin: 01/10/17 09:00 Dose: 650 mg Famotidine (Pepcid) 20 mg IVP Q12 LINA Last Admin: 01/10/17 09:00 Dose: 20 mg Norepinephrine Bitartrate 4 mg (/ Sodium Chloride) 254 mls @ 7.62 mls/hr IV .Q24H LINA; 2 MCG/MIN PRN Reason: Protocol Last Titration: 01/10/17 08:00 Dose: 0 mcg/min, 0 mls/hr Piperacillin Sod/Tazobactam (Sod 2.25 gm/ Sodium Chloride) 100 mls @ 100 mls/ hr IVPB Q6 LINA Last Admin: 01/10/17 10:46 Dose: 100 mls/hr Sodium Chloride (Sodium Chloride 0.9%) 1,000 mls @ 150 mls/hr IV .Q6H40M LINA Stop: 01/10/17 18:11 Last Admin: 01/10/17 09:00 Dose: 150 mls/hr Insulin Human Regular (Humulin R) 0 units SC ACCU-CHECK [facility] PRN Reason: Protocol Last Admin: 01/10/17 06:15 Dose: Not Given Results - Vital Signs Recent Vital Signs: Last Vital Signs Temp 100.6 F H 01/10/17 09:00 Pulse 88 01/10/17 11:00 Resp 14 01/10/17 11:00 BP 95/65 L 01/10/17 11:00 Pulse Ox 100 01/10/17 11:00 - Labs Result Diagrams: 01/10/17 05:30 01/10/17 05:30 Labs: Laboratory Results - last 24 hr 01/09/17 01/09/17 01/09/17 16:10 16:15 16:15 WBC 3.8 L RBC 2.82 L Hgb 8.4 L Hct 27.0 L MCV 95.7 MCH 29.8 MCHC 31.1 L RDW 20.4 H Plt Count 279 MPV 8.8 Neut % (Auto) 67.7 Lymph % (Auto) 26.3 Grainger % (Auto) 5.5 Eos % (Auto) 0.2 Baso % (Auto) 0.3 Neut # 2.6 Lymph # 1.0 Grainger # 0.2 Eos # 0.0 Baso # 0.0 Neutrophils % (Manual) Band Neutrophils % Lymphocytes % (Manual) Monocytes % (Manual) Platelet Estimate Anisocytosis (manual) Ovalocytes PT INR APTT pCO2 85 H* pO2 299 H HCO3 28.9 H ABG pH 7.23 L ABG Total CO2 38.2 H ABG O2 Saturation 100.5 H ABG Base Excess 5.0 H Rakan Test Yes ABG Potassium 6.1 H A-a O2 Difference 308.0 Sodium 139.0 143 Chloride 104.0 98 Glucose 420 H* Lactate 4.6 H* Vent Mode Mechanical Rate FiO2 100.0 Tidal Volume PEEP Crit Value Called To Dr javier lares Crit Value Called By 23 Crit Value Read Back Y Blood Gas Notified Time 1617 Potassium 6.8 H* Carbon Dioxide 31 H Anion Gap 21 H BUN 54 H Creatinine 1.3 H Est GFR ( Amer) 49 Est GFR (Non-Af Amer) 40 POC Glucose (mg/dL) Random Glucose 404 H* Serum Osmolality Lactic Acid Calcium 8.9 Phosphorus 7.5 H Magnesium 2.8 H Total Bilirubin 0.2 AST 284 H D ALT 138 H Alkaline Phosphatase 139 H Total Creatine Kinase Troponin I 0.0990 NT-Pro-B Natriuret Pep 38966 H Total Protein 5.9 L Albumin 2.7 L Globulin 3.2 Albumin/Globulin Ratio 0.8 L Arterial Blood Potassium 6.1 H Urine Color Urine Clarity Urine pH Ur Specific [place] Urine Protein Urine Glucose (UA) Urine Ketones Urine Blood Urine Nitrate Urine Bilirubin Urine Urobilinogen Ur Leukocyte Esterase Urine RBC (Auto) Urine Microscopic WBC Ur Squamous Epith Cells Urine Bacteria Hyaline Casts Ur Random Sodium Ur Random Potassium Digoxin Blood Type Antibody Screen BBK History Checked 01/09/17 01/09/17 01/09/17 16:20 16:20 16:20 WBC RBC Hgb Hct MCV MCH MCHC RDW Plt Count MPV Neut % (Auto) Lymph % (Auto) Grainger % (Auto) Eos % (Auto) Baso % (Auto) Neut # Lymph # Grainger # Eos # Baso # Neutrophils % (Manual) Band Neutrophils % Lymphocytes % (Manual) Monocytes % (Manual) Platelet Estimate Anisocytosis (manual) Ovalocytes PT 11.0 INR 1.1 APTT 30.3 pCO2 pO2 HCO3 ABG pH ABG Total CO2 ABG O2 Saturation ABG Base Excess Rakan Test ABG Potassium A-a O2 Difference Sodium Chloride Glucose Lactate Vent Mode Mechanical Rate FiO2 Tidal Volume PEEP Crit Value Called To Crit Value Called By Crit Value Read Back Blood Gas Notified Time Potassium Carbon Dioxide Anion Gap BUN Creatinine Est GFR ( Amer) Est GFR (Non-Af Amer) POC Glucose (mg/dL) Random Glucose Serum Osmolality Lactic Acid Calcium Phosphorus Magnesium Total Bilirubin AST ALT Alkaline Phosphatase Total Creatine Kinase Troponin I NT-Pro-B Natriuret Pep Total Protein Albumin Globulin Albumin/Globulin Ratio Arterial Blood Potassium Urine Color Urine Clarity Urine pH Ur Specific [place] Urine Protein Urine Glucose (UA) Urine Ketones Urine Blood Urine Nitrate Urine Bilirubin Urine Urobilinogen Ur Leukocyte Esterase Urine RBC (Auto) Urine Microscopic WBC Ur Squamous Epith Cells Urine Bacteria Hyaline Casts Ur Random Sodium Ur Random Potassium Digoxin 1.7 Blood Type O POSITIVE Antibody Screen Negative BBK History Checked Patient has bt 01/09/17 01/09/17 01/09/17 17:02 17:37 17:47 WBC RBC Hgb Hct MCV MCH MCHC RDW Plt Count MPV Neut % (Auto) Lymph % (Auto) Grainger % (Auto) Eos % (Auto) Baso % (Auto) Neut # Lymph # Grainger # Eos # Baso # Neutrophils % (Manual) Band Neutrophils % Lymphocytes % (Manual) Monocytes % (Manual) Platelet Estimate Anisocytosis (manual) Ovalocytes PT INR APTT pCO2 pO2 HCO3 ABG pH ABG Total CO2 ABG O2 Saturation ABG Base Excess Rakan Test ABG Potassium A-a O2 Difference Sodium Chloride Glucose Lactate Vent Mode Mechanical Rate FiO2 Tidal Volume PEEP Crit Value Called To Crit Value Called By Crit Value Read Back Blood Gas Notified Time Potassium Carbon Dioxide Anion Gap BUN Creatinine Est GFR ( Amer) Est GFR (Non-Af Amer) POC Glucose (mg/dL) 328 H Random Glucose Serum Osmolality Lactic Acid Calcium Phosphorus Magnesium Total Bilirubin AST ALT Alkaline Phosphatase Total Creatine Kinase Troponin I NT-Pro-B Natriuret Pep Total Protein Albumin Globulin Albumin/Globulin Ratio Arterial Blood Potassium Urine Color Lisa Urine Clarity Cloudy Urine pH 5.0 Ur Specific [place] 1.018 Urine Protein 100 Urine Glucose (UA) 50 Urine Ketones Negative Urine Blood Moderate Urine Nitrate Negative Urine Bilirubin Negative Urine Urobilinogen 0.2-1.0 Ur Leukocyte Esterase Large Urine RBC (Auto) 29 H Urine Microscopic WBC 92 H Ur Squamous Epith Cells 1 Urine Bacteria Mod H Hyaline Casts 0-2 Ur Random Sodium 72 Ur Random Potassium 49.8 Digoxin Blood Type Antibody Screen BBK History Checked 01/09/17 01/09/17 01/09/17 21:13 22:12 22:15 WBC RBC Hgb Hct MCV MCH MCHC RDW Plt Count MPV Neut % (Auto) Lymph % (Auto) Grainger % (Auto) Eos % (Auto) Baso % (Auto) Neut # Lymph # [place]inger # Eos # Baso # Neutrophils % (Manual) Band Neutrophils % Lymphocytes % (Manual) Monocytes % (Manual) Platelet Estimate Anisocytosis (manual) Ovalocytes PT INR APTT pCO2 pO2 HCO3 ABG pH ABG Total CO2 ABG O2 Saturation ABG Base Excess Rakan Test ABG Potassium A-a O2 Difference Sodium 149 H Chloride 104 Glucose Lactate Vent Mode Mechanical Rate FiO2 Tidal Volume PEEP Crit Value Called To Crit Value Called By Crit Value Read Back Blood Gas Notified Time Potassium 4.7 Carbon Dioxide 32 H Anion Gap 18 BUN 52 H Creatinine 1.3 H Est GFR ( Amer) 49 Est GFR (Non-Af Amer) 40 POC Glucose (mg/dL) 262 H 274 H Random Glucose 259 H Serum Osmolality Lactic Acid Calcium 8.4 Phosphorus Magnesium Total Bilirubin AST ALT Alkaline Phosphatase Total Creatine Kinase 42 Troponin I 0.1470 H* NT-Pro-B Natriuret Pep Total Protein Albumin Globulin Albumin/Globulin Ratio Arterial Blood Potassium Urine Color Urine Clarity Urine pH Ur Specific [place] Urine Protein Urine Glucose (UA) Urine Ketones Urine Blood Urine Nitrate Urine Bilirubin Urine Urobilinogen Ur Leukocyte Esterase Urine RBC (Auto) Urine Microscopic WBC Ur Squamous Epith Cells Urine Bacteria Hyaline Casts Ur Random Sodium Ur Random Potassium Digoxin Blood Type Antibody Screen BBK History Checked 01/09/17 01/09/17 01/10/17 22:51 23:24 00:12 WBC RBC Hgb Hct MCV MCH MCHC RDW Plt Count MPV Neut % (Auto) Lymph % (Auto) Grainger % (Auto) Eos % (Auto) Baso % (Auto) Neut # Lymph # Grainger # Eos # Baso # Neutrophils % (Manual) Band Neutrophils % Lymphocytes % (Manual) Monocytes % (Manual) Platelet Estimate Anisocytosis (manual) Ovalocytes PT INR APTT pCO2 pO2 HCO3 ABG pH ABG Total CO2 ABG O2 Saturation ABG Base Excess Rakan Test ABG Potassium A-a O2 Difference Sodium Chloride Glucose Lactate Vent Mode Mechanical Rate FiO2 Tidal Volume PEEP Crit Value Called To Crit Value Called By Crit Value Read Back Blood Gas Notified Time Potassium Carbon Dioxide Anion Gap BUN Creatinine Est GFR ( Amer) Est GFR (Non-Af Amer) POC Glucose (mg/dL) 295 H Random Glucose Serum Osmolality 340 H Lactic Acid 6.6 H* Calcium Phosphorus Magnesium Total Bilirubin AST ALT Alkaline Phosphatase Total Creatine Kinase Troponin I NT-Pro-B Natriuret Pep Total Protein Albumin Globulin Albumin/Globulin Ratio Arterial Blood Potassium Urine Color Urine Clarity Urine pH Ur Specific [place] Urine Protein Urine Glucose (UA) Urine Ketones Urine Blood Urine Nitrate Urine Bilirubin Urine Urobilinogen Ur Leukocyte Esterase Urine RBC (Auto) Urine Microscopic WBC Ur Squamous Epith Cells Urine Bacteria Hyaline Casts Ur Random Sodium Ur Random Potassium Digoxin Blood Type Antibody Screen BBK History Checked 01/10/17 01/10/17 01/10/17 01:43 02:23 03:44 WBC RBC Hgb Hct MCV MCH MCHC RDW Plt Count MPV Neut % (Auto) Lymph % (Auto) [place]inger % (Auto) Eos % (Auto) Baso % (Auto) Neut # Lymph # [place]inger # Eos # Baso # Neutrophils % (Manual) Band Neutrophils % Lymphocytes % (Manual) Monocytes % (Manual) Platelet Estimate Anisocytosis (manual) Ovalocytes PT INR APTT pCO2 pO2 HCO3 ABG pH ABG Total CO2 ABG O2 Saturation ABG Base Excess Rakan Test ABG Potassium A-a O2 Difference Sodium Chloride Glucose Lactate Vent Mode Mechanical Rate FiO2 Tidal Volume PEEP Crit Value Called To Crit Value Called By Crit Value Read Back Blood Gas Notified Time Potassium Carbon Dioxide Anion Gap BUN Creatinine Est GFR ( Amer) Est GFR (Non-Af Amer) POC Glucose (mg/dL) 241 H 208 H Random Glucose Serum Osmolality Lactic Acid Calcium Phosphorus Magnesium Total Bilirubin AST ALT Alkaline Phosphatase Total Creatine Kinase Troponin I NT-Pro-B Natriuret Pep Total Protein Albumin Globulin Albumin/Globulin Ratio Arterial Blood Potassium Urine Color Urine Clarity Urine pH Ur Specific [place] Urine Protein Urine Glucose (UA) Urine Ketones Urine Blood Urine Nitrate Urine Bilirubin Urine Urobilinogen Ur Leukocyte Esterase Urine RBC (Auto) Urine Microscopic WBC Ur Squamous Epith Cells Urine Bacteria Hyaline Casts Ur Random Sodium Ur Random Potassium Digoxin 1.2 Blood Type Antibody Screen BBK History Checked 01/10/17 01/10/17 01/10/17 04:00 05:30 05:30 WBC 4.8 RBC 2.54 L Hgb 7.6 L Hct 23.7 L MCV 93.2 D MCH 29.9 MCHC 32.1 L RDW 20.0 H Plt Count 199 MPV 8.5 Neut % (Auto) 82.8 H Lymph % (Auto) 9.1 L Grainger % (Auto) 8.0 Eos % (Auto) 0.0 Baso % (Auto) 0.1 Neut # 3.9 Lymph # 0.4 L Grainger # 0.4 Eos # 0.0 Baso # 0.0 Neutrophils % (Manual) 87 H Band Neutrophils % 2 Lymphocytes % (Manual) 10 L Monocytes % (Manual) 1 Platelet Estimate Normal Anisocytosis (manual) Slight Ovalocytes Slight PT INR APTT pCO2 59 H pO2 79 L HCO3 30.2 H ABG pH 7.36 ABG Total CO2 35.1 H ABG O2 Saturation 98.9 H ABG Base Excess 6.8 H Rakan Test Yes ABG Potassium 4.3 A-a O2 Difference 204.0 Sodium 144.0 149 H Chloride 110.0 H 106 Glucose 137 H Lactate 2.3 H Vent Mode A/c Mechanical Rate 14 FiO2 50.0 Tidal Volume 300 PEEP 0 Crit Value Called To Crit Value Called By Crit Value Read Back Blood Gas Notified Time Potassium 4.5 Carbon Dioxide 32 H Anion Gap 16 BUN 55 H Creatinine 1.3 H Est GFR ( Amer) 49 Est GFR (Non-Af Amer) 40 POC Glucose (mg/dL) Random Glucose 137 H Serum Osmolality Lactic Acid Calcium 8.1 L Phosphorus Magnesium Total Bilirubin 0.3 AST 132 H D ALT 106 H D Alkaline Phosphatase 114 Total Creatine Kinase Troponin I 0.2400 H* NT-Pro-B Natriuret Pep Total Protein 6.1 L Albumin 2.6 L Globulin 3.4 Albumin/Globulin Ratio 0.8 L Arterial Blood Potassium 4.3 Urine Color Urine Clarity Urine pH Ur Specific [place] Urine Protein Urine Glucose (UA) Urine Ketones Urine Blood Urine Nitrate Urine Bilirubin Urine Urobilinogen Ur Leukocyte Esterase Urine RBC (Auto) Urine Microscopic WBC Ur Squamous Epith Cells Urine Bacteria Hyaline Casts Ur Random Sodium Ur Random Potassium Digoxin Blood Type Antibody Screen BBK History Checked 01/10/17 01/10/17 01/10/17 05:30 05:30 05:41 WBC RBC Hgb Hct MCV MCH MCHC RDW Plt Count MPV Neut % (Auto) Lymph % (Auto) [place]inger % (Auto) Eos % (Auto) Baso % (Auto) Neut # Lymph # [place]inger # Eos # Baso # Neutrophils % (Manual) Band Neutrophils % Lymphocytes % (Manual) Monocytes % (Manual) Platelet Estimate Anisocytosis (manual) Ovalocytes PT 11.8 INR 1.1 APTT 30.3 pCO2 pO2 HCO3 ABG pH ABG Total CO2 ABG O2 Saturation ABG Base Excess Rakan Test ABG Potassium A-a O2 Difference Sodium Chloride Glucose Lactate Vent Mode Mechanical Rate FiO2 Tidal Volume PEEP Crit Value Called To Crit Value Called By Crit Value Read Back Blood Gas Notified Time Potassium Carbon Dioxide Anion Gap BUN Creatinine Est GFR ( Amer) Est GFR (Non-Af Amer) POC Glucose (mg/dL) 141 H Random Glucose Serum Osmolality 388 H Lactic Acid Calcium Phosphorus Magnesium Total Bilirubin AST ALT Alkaline Phosphatase Total Creatine Kinase Troponin I NT-Pro-B Natriuret Pep Total Protein Albumin Globulin Albumin/Globulin Ratio Arterial Blood Potassium Urine Color Urine Clarity Urine pH Ur Specific [place] Urine Protein Urine Glucose (UA) Urine Ketones Urine Blood Urine Nitrate Urine Bilirubin Urine Urobilinogen Ur Leukocyte Esterase Urine RBC (Auto) Urine Microscopic WBC Ur Squamous Epith Cells Urine Bacteria Hyaline Casts Ur Random Sodium Ur Random Potassium Digoxin Blood Type Antibody Screen BBK History Checked 01/10/17 01/10/17 01/10/17 06:03 08:06 10:13 WBC RBC Hgb Hct MCV MCH MCHC RDW Plt Count MPV Neut % (Auto) Lymph % (Auto) [place]inger % (Auto) Eos % (Auto) Baso % (Auto) Neut # Lymph # [place] # Eos # Baso # Neutrophils % (Manual) Band Neutrophils % Lymphocytes % (Manual) Monocytes % (Manual) Platelet Estimate Anisocytosis (manual) Ovalocytes PT INR APTT pCO2 pO2 HCO3 ABG pH ABG Total CO2 ABG O2 Saturation ABG Base Excess Rakan Test ABG Potassium A-a O2 Difference Sodium Chloride Glucose Lactate Vent Mode Mechanical Rate FiO2 Tidal Volume PEEP Crit Value Called To Crit Value Called By Crit Value Read Back Blood Gas Notified Time Potassium Carbon Dioxide Anion Gap BUN Creatinine Est GFR ( Amer) Est GFR (Non-Af Amer) POC Glucose (mg/dL) 149 H 159 H Random Glucose Serum Osmolality Lactic Acid 2.7 H Calcium Phosphorus Magnesium Total Bilirubin AST ALT Alkaline Phosphatase Total Creatine Kinase Troponin I NT-Pro-B Natriuret Pep Total Protein Albumin Globulin Albumin/Globulin Ratio Arterial Blood Potassium Urine Color Urine Clarity Urine pH Ur Specific [place] Urine Protein Urine Glucose (UA) Urine Ketones Urine Blood Urine Nitrate Urine Bilirubin Urine Urobilinogen Ur Leukocyte Esterase Urine RBC (Auto) Urine Microscopic WBC Ur Squamous Epith Cells Urine Bacteria Hyaline Casts Ur Random Sodium Ur Random Potassium Digoxin Blood Type Antibody Screen BBK History Checked
--- NOTE | 2017-01-10 11:32 | CP.PCM.CON ---
History of Present Illness - History of Present Illness History of Present Illness: this 71-year-old chronically sick -[place] female,came into the emergency room yester day after having required CPR at the assisted, and was placed on a ventilator and is in ICU now. this consultation was requested because of elevated troponin levels. The patient has had multiple hospitalizations during last 12 months. She has had chronic renal failure and has had persistent azotemia. she was hospitalized at [facility] on December 16 with a BUNs of 183 mg percent and creatinine of 3.1 mg percent. She is an ex-smoker with COPD.She has congestive cardiac failure with a documented LVEF of approximately 30%. She has had a history of atrial fibrillation and was being treated with digoxin as well as a beta alexandra and oral anticoagulation. Her family does not indicate that they were aware of any heart disease.the patient has been mostly bedbound for the last year. They gave history of patient having pedal edema off and on for the last year. Physical examination shows an elderly thin built female on ventilatory support with an FiO2 of 40%. She was difficult to arouse. She was in sinus rhythm at 80 bpm with frequent premature atrial and ventricular complexes. Her blood Pressure was 110/70 mmHg. Her jugular venous pressure was not elevated. There was no edema over her lower extremities. Extremities were slightly cool to touch. No central or peripheralcyanosis was evident the apex was in 50s slightly heaving in character. There was a long apical systolic murmur of mitral insufficiency. Faint gallop was audible. Few scattered rales at bases. Abdomen was soft. Liver and spleen were not palpable. EKG at admission showed no P waves, a pattern suggestive of atrial fibrillation with a right bundle branch block pattern. An EKG this morning shows sinus rhythmwith evidence of an old anterior wall myocardial infarction. This was compared with an electrocardiogram at [facility]. This also showed evidence of an old anterior wall myocardial infarction. Review of vital signsin ER show that patient arrived severely hypotensive and required IV fluids. Her lactate was markedly elevated. And the patient was again azotemic. her serum potassium was 6.6 mEq per liter. Her troponin levels have Been elevated. impression: I doubt the patient has suffered an acute myocardial infarction. Multiple factors could explain the rise of troponin. These include recent CPR, hypotensive state, elevated lactate indicating poor tissue perfusion, as well as renal insufficiency. The patient has received intravenous fluids and appears much improved hemodynamically Her potassium level is normal. EKG this morning does not show ST -T abnormalities suggestive of of acute myocardial ischemia. I have discussed her case with event decorator and designer. I agree with present management. Given multiple comorbidities, her prognosis appears poor. Past Patient History - Infectious Disease Hx of Infectious Diseases: None - Tetanus Immunizations Tetanus Immunization: Unknown - Past Medical History & Family History Past Medical History?: Yes - Past Social History Smoking Status: unknown - CARDIAC Hx Atrial Fibrillation: Yes Hx Cardia Arrhythmia: Yes Hx Congestive Heart Failure: Yes Hx Hypercholesterolemia: Yes Hx Hypertension: Yes - PULMONARY Hx Asthma: No Hx Chronic Obstructive Pulmonary Disease (COPD): No Hx Emphysema: Yes - NEUROLOGICAL Hx Dementia: Yes - HEENT Hx HEENT Problems: Yes Hx Cataracts: Yes (both eyes) - RENAL Hx Chronic Kidney Disease: No - ENDOCRINE/METABOLIC Hx Endocrine Disorders: No - HEMATOLOGICAL/ONCOLOGICAL Hx Anemia: Yes - INTEGUMENTARY Hx Dermatological Problems: No - MUSCULOSKELETAL/RHEUMATOLOGICAL Hx Musculoskeletal Disorders: Yes Hx Falls: No (unknown) Hx Unsteady Gait: Yes - GASTROINTESTINAL Hx Gastrointestinal Disorders: Yes Other/Comment: patient is very anorectic. >with PEG - GENITOURINARY/GYNECOLOGICAL Hx Genitourinary Disorders: No - PSYCHIATRIC Hx Psychophysiologic Disorder: No Hx Substance Use: (unknown) - SURGICAL HISTORY Hx Surgeries: Yes Hx Cataract Extraction: Yes (2013) Hx Eye Surgery: Yes - ANESTHESIA Hx Anesthesia: Yes Hx Anesthesia Reactions: No Hx Malignant Hyperthermia: No Meds Allergies/Adverse Reactions: Allergies Allergy/AdvReac Type Severity Reaction Status Date / Time No Known Allergies Allergy Verified 12/16/16 15:11 - Medications Medications: Current Medications Acetaminophen (Tylenol 650mg/20.3ml Solution Ud) 650 mg PO Q6 PRN PRN Reason: fever Last Admin: 01/10/17 09:00 Dose: 650 mg Famotidine (Pepcid) 20 mg IVP Q12 [facility] Last Admin: 01/10/17 09:00 Dose: 20 mg Norepinephrine Bitartrate 4 mg (/ Sodium Chloride) 254 mls @ 7.62 mls/hr IV .Q24H LINA; 2 MCG/MIN PRN Reason: Protocol Last Titration: 01/10/17 08:00 Dose: 0 mcg/min, 0 mls/hr Piperacillin Sod/Tazobactam (Sod 2.25 gm/ Sodium Chloride) 100 mls @ 100 mls/ hr IVPB Q6 [facility] Last Admin: 01/10/17 10:46 Dose: 100 mls/hr Sodium Chloride (Sodium Chloride 0.9%) 1,000 mls @ 150 mls/hr IV .Q6H40M [facility] Stop: 01/10/17 18:11 Last Admin: 01/10/17 09:00 Dose: 150 mls/hr Insulin Human Regular (Humulin R) 0 units SC ACCU-CHECK [facility] PRN Reason: Protocol Last Admin: 01/10/17 06:15 Dose: Not Given Results - Vital Signs Recent Vital Signs: Last Vital Signs Temp 100.6 F H 01/10/17 09:00 Pulse 88 01/10/17 11:00 Resp 14 01/10/17 11:00 BP 95/65 L 01/10/17 11:00 Pulse Ox 100 01/10/17 11:00 - Labs Result Diagrams: 01/10/17 05:30 01/10/17 05:30 Labs: Laboratory Results - last 24 hr 01/09/17 01/09/17 01/09/17 16:10 16:15 16:15 WBC 3.8 L RBC 2.82 L Hgb 8.4 L Hct 27.0 L MCV 95.7 MCH 29.8 MCHC 31.1 L RDW 20.4 H Plt Count 279 MPV 8.8 Neut % (Auto) 67.7 Lymph % (Auto) 26.3 [place] % (Auto) 5.5 Eos % (Auto) 0.2 Baso % (Auto) 0.3 Neut # 2.6 Lymph # 1.0 [place] # 0.2 Eos # 0.0 Baso # 0.0 Neutrophils % (Manual) Band Neutrophils % Lymphocytes % (Manual) Monocytes % (Manual) Platelet Estimate Anisocytosis (manual) Ovalocytes PT INR APTT pCO2 85 H* pO2 299 H HCO3 28.9 H ABG pH 7.23 L ABG Total CO2 38.2 H ABG O2 Saturation 100.5 H ABG Base Excess 5.0 H Rakan Test Yes ABG Potassium 6.1 H A-a O2 Difference 308.0 Sodium 139.0 143 Chloride 104.0 98 Glucose 420 H* Lactate 4.6 H* Vent Mode Mechanical Rate FiO2 100.0 Tidal Volume PEEP Crit Value Called To Dr javier lares Crit Value Called By 23 Crit Value Read Back Y Blood Gas Notified Time 1617 Potassium 6.8 H* Carbon Dioxide 31 H Anion Gap 21 H BUN 54 H Creatinine 1.3 H Est GFR ( Amer) 49 Est GFR (Non-Af Amer) 40 POC Glucose (mg/dL) Random Glucose 404 H* Serum Osmolality Lactic Acid Calcium 8.9 Phosphorus 7.5 H Magnesium 2.8 H Total Bilirubin 0.2 AST 284 H D ALT 138 H Alkaline Phosphatase 139 H Total Creatine Kinase Troponin I 0.0990 NT-Pro-B Natriuret Pep 14182 H Total Protein 5.9 L Albumin 2.7 L Globulin 3.2 Albumin/Globulin Ratio 0.8 L Arterial Blood Potassium 6.1 H Urine Color Urine Clarity Urine pH Ur Specific [place] Urine Protein Urine Glucose (UA) Urine Ketones Urine Blood Urine Nitrate Urine Bilirubin Urine Urobilinogen Ur Leukocyte Esterase Urine RBC (Auto) Urine Microscopic WBC Ur Squamous Epith Cells Urine Bacteria Hyaline Casts Ur Random Sodium Ur Random Potassium Digoxin Blood Type Antibody Screen BBK History Checked 01/09/17 01/09/17 01/09/17 16:20 16:20 16:20 WBC RBC Hgb Hct MCV MCH MCHC RDW Plt Count MPV Neut % (Auto) Lymph % (Auto) [place] % (Auto) Eos % (Auto) Baso % (Auto) Neut # Lymph # [place] # Eos # Baso # Neutrophils % (Manual) Band Neutrophils % Lymphocytes % (Manual) Monocytes % (Manual) Platelet Estimate Anisocytosis (manual) Ovalocytes PT 11.0 INR 1.1 APTT 30.3 pCO2 pO2 HCO3 ABG pH ABG Total CO2 ABG O2 Saturation ABG Base Excess Rakan Test ABG Potassium A-a O2 Difference Sodium Chloride Glucose Lactate Vent Mode Mechanical Rate FiO2 Tidal Volume PEEP Crit Value Called To Crit Value Called By Crit Value Read Back Blood Gas Notified Time Potassium Carbon Dioxide Anion Gap BUN Creatinine Est GFR ( Amer) Est GFR (Non-Af Amer) POC Glucose (mg/dL) Random Glucose Serum Osmolality Lactic Acid Calcium Phosphorus Magnesium Total Bilirubin AST ALT Alkaline Phosphatase Total Creatine Kinase Troponin I NT-Pro-B Natriuret Pep Total Protein Albumin Globulin Albumin/Globulin Ratio Arterial Blood Potassium Urine Color Urine Clarity Urine pH Ur Specific [place] Urine Protein Urine Glucose (UA) Urine Ketones Urine Blood Urine Nitrate Urine Bilirubin Urine Urobilinogen Ur Leukocyte Esterase Urine RBC (Auto) Urine Microscopic WBC Ur Squamous Epith Cells Urine Bacteria Hyaline Casts Ur Random Sodium Ur Random Potassium Digoxin 1.7 Blood Type O POSITIVE Antibody Screen Negative BBK History Checked Patient has bt 01/09/17 01/09/17 01/09/17 17:02 17:37 17:47 WBC RBC Hgb Hct MCV MCH MCHC RDW Plt Count MPV Neut % (Auto) Lymph % (Auto) [place] % (Auto) Eos % (Auto) Baso % (Auto) Neut # Lymph # [place] # Eos # Baso # Neutrophils % (Manual) Band Neutrophils % Lymphocytes % (Manual) Monocytes % (Manual) Platelet Estimate Anisocytosis (manual) Ovalocytes PT INR APTT pCO2 pO2 HCO3 ABG pH ABG Total CO2 ABG O2 Saturation ABG Base Excess [place]akan Test ABG Potassium A-a O2 Difference Sodium Chloride Glucose Lactate Vent Mode Mechanical Rate FiO2 Tidal Volume PEEP Crit Value Called To Crit Value Called By Crit Value Read Back Blood Gas Notified Time Potassium Carbon Dioxide Anion Gap BUN Creatinine Est GFR ( Amer) Est GFR (Non-Af Amer) POC Glucose (mg/dL) 328 H Random Glucose Serum Osmolality Lactic Acid Calcium Phosphorus Magnesium Total Bilirubin AST ALT Alkaline Phosphatase Total Creatine Kinase Troponin I NT-Pro-B Natriuret Pep Total Protein Albumin Globulin Albumin/Globulin Ratio Arterial Blood Potassium Urine Color Lisa Urine Clarity Cloudy Urine pH 5.0 Ur Specific [place] 1.018 Urine Protein 100 Urine Glucose (UA) 50 Urine Ketones Negative Urine Blood Moderate Urine Nitrate Negative Urine Bilirubin Negative Urine Urobilinogen 0.2-1.0 Ur Leukocyte Esterase Large Urine RBC (Auto) 29 H Urine Microscopic WBC 92 H Ur Squamous Epith Cells 1 Urine Bacteria Mod H Hyaline Casts 0-2 Ur Random Sodium 72 Ur Random Potassium 49.8 Digoxin Blood Type Antibody Screen BBK History Checked 01/09/17 01/09/17 01/09/17 21:13 22:12 22:15 WBC RBC Hgb Hct MCV MCH MCHC RDW Plt Count MPV Neut % (Auto) Lymph % (Auto) [place] % (Auto) Eos % (Auto) Baso % (Auto) Neut # Lymph # [place] # Eos # Baso # Neutrophils % (Manual) Band Neutrophils % Lymphocytes % (Manual) Monocytes % (Manual) Platelet Estimate Anisocytosis (manual) Ovalocytes PT INR APTT pCO2 pO2 HCO3 ABG pH ABG Total CO2 ABG O2 Saturation ABG Base Excess [place] Test ABG Potassium A-a O2 Difference Sodium 149 H Chloride 104 Glucose Lactate Vent Mode Mechanical Rate FiO2 Tidal Volume PEEP Crit Value Called To Crit Value Called By Crit Value Read Back Blood Gas Notified Time Potassium 4.7 Carbon Dioxide 32 H Anion Gap 18 BUN 52 H Creatinine 1.3 H Est GFR ( Amer) 49 Est GFR (Non-Af Amer) 40 POC Glucose (mg/dL) 262 H 274 H Random Glucose 259 H Serum Osmolality Lactic Acid Calcium 8.4 Phosphorus Magnesium Total Bilirubin AST ALT Alkaline Phosphatase Total Creatine Kinase 42 Troponin I 0.1470 H* NT-Pro-B Natriuret Pep Total Protein Albumin Globulin Albumin/Globulin Ratio Arterial Blood Potassium Urine Color Urine Clarity Urine pH Ur Specific [place] Urine Protein Urine Glucose (UA) Urine Ketones Urine Blood Urine Nitrate Urine Bilirubin Urine Urobilinogen Ur Leukocyte Esterase Urine RBC (Auto) Urine Microscopic WBC Ur Squamous Epith Cells Urine Bacteria Hyaline Casts Ur Random Sodium Ur Random Potassium Digoxin Blood Type Antibody Screen BBK History Checked 01/09/17 01/09/17 01/10/17 22:51 23:24 00:12 WBC RBC Hgb Hct MCV MCH MCHC RDW Plt Count MPV Neut % (Auto) Lymph % (Auto) [place] % (Auto) Eos % (Auto) Baso % (Auto) Neut # Lymph # [place] # Eos # Baso # Neutrophils % (Manual) Band Neutrophils % Lymphocytes % (Manual) Monocytes % (Manual) Platelet Estimate Anisocytosis (manual) Ovalocytes PT INR APTT pCO2 pO2 HCO3 ABG pH ABG Total CO2 ABG O2 Saturation ABG Base Excess [place] Test ABG Potassium A-a O2 Difference Sodium Chloride Glucose Lactate Vent Mode Mechanical Rate FiO2 Tidal Volume PEEP Crit Value Called To Crit Value Called By Crit Value Read Back Blood Gas Notified Time Potassium Carbon Dioxide Anion Gap BUN Creatinine Est GFR ( Amer) Est GFR (Non-Af Amer) POC Glucose (mg/dL) 295 H Random Glucose Serum Osmolality 340 H Lactic Acid 6.6 H* Calcium Phosphorus Magnesium Total Bilirubin AST ALT Alkaline Phosphatase Total Creatine Kinase Troponin I NT-Pro-B Natriuret Pep Total Protein Albumin Globulin Albumin/Globulin Ratio Arterial Blood Potassium Urine Color Urine Clarity Urine pH Ur Specific [place] Urine Protein Urine Glucose (UA) Urine Ketones Urine Blood Urine Nitrate Urine Bilirubin Urine Urobilinogen Ur Leukocyte Esterase Urine RBC (Auto) Urine Microscopic WBC Ur Squamous Epith Cells Urine Bacteria Hyaline Casts Ur Random Sodium Ur Random Potassium Digoxin Blood Type Antibody Screen BBK History Checked 01/10/17 01/10/17 01/10/17 01:43 02:23 03:44 WBC RBC Hgb Hct MCV MCH MCHC RDW Plt Count MPV Neut % (Auto) Lymph % (Auto) [place] % (Auto) Eos % (Auto) Baso % (Auto) Neut # Lymph # [place] # Eos # Baso # Neutrophils % (Manual) Band Neutrophils % Lymphocytes % (Manual) Monocytes % (Manual) Platelet Estimate Anisocytosis (manual) Ovalocytes PT INR APTT pCO2 pO2 HCO3 ABG pH ABG Total CO2 ABG O2 Saturation ABG Base Excess [place] Test ABG Potassium A-a O2 Difference Sodium Chloride Glucose Lactate Vent Mode Mechanical Rate FiO2 Tidal Volume PEEP Crit Value Called To Crit Value Called By Crit Value Read Back Blood Gas Notified Time Potassium Carbon Dioxide Anion Gap BUN Creatinine Est GFR ( Amer) Est GFR (Non-Af Amer) POC Glucose (mg/dL) 241 H 208 H Random Glucose Serum Osmolality Lactic Acid Calcium Phosphorus Magnesium Total Bilirubin AST ALT Alkaline Phosphatase Total Creatine Kinase Troponin I NT-Pro-B Natriuret Pep Total Protein Albumin Globulin Albumin/Globulin Ratio Arterial Blood Potassium Urine Color Urine Clarity Urine pH Ur Specific [place] Urine Protein Urine Glucose (UA) Urine Ketones Urine Blood Urine Nitrate Urine Bilirubin Urine Urobilinogen Ur Leukocyte Esterase Urine RBC (Auto) Urine Microscopic WBC Ur Squamous Epith Cells Urine Bacteria Hyaline Casts Ur Random Sodium Ur Random Potassium Digoxin 1.2 Blood Type Antibody Screen BBK History Checked 01/10/17 01/10/17 01/10/17 04:00 05:30 05:30 WBC 4.8 RBC 2.54 L Hgb 7.6 L Hct 23.7 L MCV 93.2 D MCH 29.9 MCHC 32.1 L RDW 20.0 H Plt Count 199 MPV 8.5 Neut % (Auto) 82.8 H Lymph % (Auto) 9.1 L [place] % (Auto) 8.0 Eos % (Auto) 0.0 Baso % (Auto) 0.1 Neut # 3.9 Lymph # 0.4 L [place] # 0.4 Eos # 0.0 Baso # 0.0 Neutrophils % (Manual) 87 H Band Neutrophils % 2 Lymphocytes % (Manual) 10 L Monocytes % (Manual) 1 Platelet Estimate Normal Anisocytosis (manual) Slight Ovalocytes Slight PT INR APTT pCO2 59 H pO2 79 L HCO3 30.2 H ABG pH 7.36 ABG Total CO2 35.1 H ABG O2 Saturation 98.9 H ABG Base Excess 6.8 H [place]akan Test Yes ABG Potassium 4.3 A-a O2 Difference 204.0 Sodium 144.0 149 H Chloride 110.0 H 106 Glucose 137 H Lactate 2.3 H Vent Mode A/c Mechanical Rate 14 FiO2 50.0 Tidal Volume 300 PEEP 0 Crit Value Called To Crit Value Called By Crit Value Read Back Blood Gas Notified Time Potassium 4.5 Carbon Dioxide 32 H Anion Gap 16 BUN 55 H Creatinine 1.3 H Est GFR ( Amer) 49 Est GFR (Non-Af Amer) 40 POC Glucose (mg/dL) Random Glucose 137 H Serum Osmolality Lactic Acid Calcium 8.1 L Phosphorus Magnesium Total Bilirubin 0.3 AST 132 H D ALT 106 H D Alkaline Phosphatase 114 Total Creatine Kinase Troponin I 0.2400 H* NT-Pro-B Natriuret Pep Total Protein 6.1 L Albumin 2.6 L Globulin 3.4 Albumin/Globulin Ratio 0.8 L Arterial Blood Potassium 4.3 Urine Color Urine Clarity Urine pH Ur Specific [place] Urine Protein Urine Glucose (UA) Urine Ketones Urine Blood Urine Nitrate Urine Bilirubin Urine Urobilinogen Ur Leukocyte Esterase Urine RBC (Auto) Urine Microscopic WBC Ur Squamous Epith Cells Urine Bacteria Hyaline Casts Ur Random Sodium Ur Random Potassium Digoxin Blood Type Antibody Screen BBK History Checked 01/10/17 01/10/17 01/10/17 05:30 05:30 05:41 WBC RBC Hgb Hct MCV MCH MCHC RDW Plt Count MPV Neut % (Auto) Lymph % (Auto) [place] % (Auto) Eos % (Auto) Baso % (Auto) Neut # Lymph # [place] # Eos # Baso # Neutrophils % (Manual) Band Neutrophils % Lymphocytes % (Manual) Monocytes % (Manual) Platelet Estimate Anisocytosis (manual) Ovalocytes PT 11.8 INR 1.1 APTT 30.3 pCO2 pO2 HCO3 ABG pH ABG Total CO2 ABG O2 Saturation ABG Base Excess [place]akan Test ABG Potassium A-a O2 Difference Sodium Chloride Glucose Lactate Vent Mode Mechanical Rate FiO2 Tidal Volume PEEP Crit Value Called To Crit Value Called By Crit Value Read Back Blood Gas Notified Time Potassium Carbon Dioxide Anion Gap BUN Creatinine Est GFR ( Amer) Est GFR (Non-Af Amer) POC Glucose (mg/dL) 141 H Random Glucose Serum Osmolality 388 H Lactic Acid Calcium Phosphorus Magnesium Total Bilirubin AST ALT Alkaline Phosphatase Total Creatine Kinase Troponin I NT-Pro-B Natriuret Pep Total Protein Albumin Globulin Albumin/Globulin Ratio Arterial Blood Potassium Urine Color Urine Clarity Urine pH Ur Specific [place] Urine Protein Urine Glucose (UA) Urine Ketones Urine Blood Urine Nitrate Urine Bilirubin Urine Urobilinogen Ur Leukocyte Esterase Urine RBC (Auto) Urine Microscopic WBC Ur Squamous Epith Cells Urine Bacteria Hyaline Casts Ur Random Sodium Ur Random Potassium Digoxin Blood Type Antibody Screen BBK History Checked 01/10/17 01/10/17 01/10/17 06:03 08:06 10:13 WBC RBC Hgb Hct MCV MCH MCHC RDW Plt Count MPV Neut % (Auto) Lymph % (Auto) [place] % (Auto) Eos % (Auto) Baso % (Auto) Neut # Lymph # [place] # Eos # Baso # Neutrophils % (Manual) Band Neutrophils % Lymphocytes % (Manual) Monocytes % (Manual) Platelet Estimate Anisocytosis (manual) Ovalocytes PT INR APTT pCO2 pO2 HCO3 ABG pH ABG Total CO2 ABG O2 Saturation ABG Base Excess [place]akan Test ABG Potassium A-a O2 Difference Sodium Chloride Glucose Lactate Vent Mode Mechanical Rate FiO2 Tidal Volume PEEP Crit Value Called To Crit Value Called By Crit Value Read Back Blood Gas Notified Time Potassium Carbon Dioxide Anion Gap BUN Creatinine Est GFR ( Amer) Est GFR (Non-Af Amer) POC Glucose (mg/dL) 149 H 159 H Random Glucose Serum Osmolality Lactic Acid 2.7 H Calcium Phosphorus Magnesium Total Bilirubin AST ALT Alkaline Phosphatase Total Creatine Kinase Troponin I NT-Pro-B Natriuret Pep Total Protein Albumin Globulin Albumin/Globulin Ratio Arterial Blood Potassium Urine Color Urine Clarity Urine pH Ur Specific [place] Urine Protein Urine Glucose (UA) Urine Ketones Urine Blood Urine Nitrate Urine Bilirubin Urine Urobilinogen Ur Leukocyte Esterase Urine RBC (Auto) Urine Microscopic WBC Ur Squamous Epith Cells Urine Bacteria Hyaline Casts Ur Random Sodium Ur Random Potassium Digoxin Blood Type Antibody Screen BBK History Checked
--- NOTE | 2017-01-10 11:58 | CARD ---
APPROVED REPORT EKG Measurement Heart [id number] <Conclusion> Sinus rhythm with premature atrial complexes Left axis deviation Low voltage QRS Cannot rule out Anterior infarct, age undetermined Abnormal ECG
--- NOTE | 2017-01-10 12:25 | CP.CCUPN ---
CCU Subjective - Physician Review Subjective (Free Text): Awake and responsive this AM and appears to make facial expressions when interacting with daughter at the bedside. Day #2 on MV, failed SBTs this AM with RSBI above 200, Ve= 13.6 and RR up to 35 on low level CPAP PS. On very low dose Levophed. HR now up to 90s and in NSR with PACs. Other vitals and I/O's reviewed. MAP 69 off Levophed. ROS: Unobtainable due to intubation. No other pertinent negs or positives on 10 + system review. PMSFH: Recent PEG placement at and discharged from [facility] for severe malnutrition; bed bound, CHF, A Fib, Anemia, Atrial Fibrillation, severe Dementia, Emphysema, HTN, Hypercholesterolemia. All Nursing and physician documentation reviewed to date; no new pertinent info noted relevant to current medical problems. CXR: ETT position OK above collin, Bi- basilar interstitial changes seen yesterday have progresses, no changes seen in BRISSA and R perihilar region ( my interp). MAJOR PROBLEMS: 1. Acute Hypercarbic Resp Failure, 2 metabolic Encephalopathy, r/o Toxic Drug effects (Cyprohepatadine) versus CHF and Pneumonia 2. Bilateral Pneumonia, suspect aspiration event 3. Azotemia with Dehydration and Hyperkalemia 4. Chronic Disease Anemia, r/o acute GI Blood loss. 5. Paroxsymal A Fib with slow VR, r/o Digoxin / Lopressor effect-Toxicity 6. Transaminitis / Abnormal LFTs PLAN: 1. MV support. Await Sputum CX for any identifiable organism, coverage for healthcare asssoc organisms. 2. IVF hydration, no clinical CHF evident here today. 3. K levels normalized, lactate improved. 4. No need for Digibind last night due to normal Dig levels. 5. Initial Serum Osmo elevated, ?? HNKC sate on presentation. 6. Decrease IVF to maintenance hydration, and start PEG feeds. 7. No clinical evidence of CHF. 8. CT brain negative for acute pathology. CCU Objective - Vital Signs / Intake & Output Vital Signs (Last 4 hours): Vital Signs Temp Pulse Resp BP Pulse Ox 01/10/17 11:00 88 14 95/65 L 100 01/10/17 10:00 89 15 106/39 L 100 01/10/17 09:00 100.6 F H 98 H 24 140/63 97 Intake and Output (Last 8hrs): Intake & Output 01/09/17 01/10/17 01/10/17 22:59 06:59 14:59 Intake Total 672 904 614 Output Total 250 Balance 672 654 614 Weight 100 lb Intake: IV 222 804 614 Intake, Piggyback 450 100 Oral 0 0 Output: Urine 250 Urethral (Atkins) 250 Other: # Bowel Movements 1 - Physical Exam Head: Positive for: Normocephalic Pupils: Positive for: PERRL Extroacular Muscles: Positive for: EOMI Conjunctiva: Positive for: Normal. Negative for: Icteric Mouth: Positive for: Moist Mucous Membranes Neck: Positive for: JVD. Negative for: Meningeal Signs Respiratory/Chest: Positive for: Decreased Breath Sounds, Rales. Negative for: Accessory Muscle Use, Wheezes Cardiovascular: Positive for: Irregular Rhythm, Bradycardic. Negative for: Murmurs, Rub Abdomen: Positive for: Normal Bowel Sounds, Other (PEG intact). Negative for: Tenderness, Distention Lower Extremity: Positive for: NORMAL PULSES. Negative for: CALF TENDERNESS, Cyanosis Neurological: Positive for: Other (not following any commands) Skin: Positive for: Warm. Negative for: Rashes - Medications Active Medications: Active Medications Generic Name Dose Route Start Last Admin Trade Name Freq PRN Reason Stop Dose Admin Acetaminophen 650 mg 01/10/17 08:40 01/10/17 09:00 Tylenol 650mg/20.3ml Solution Ud PO 650 mg Q6 PRN Administration fever Famotidine 20 mg 01/09/17 21:00 01/10/17 09:00 Pepcid IVP 20 mg Q12 LINA Administration Norepinephrine Bitartrate 4 mg 254 mls @ 7.62 mls/hr 01/09/17 16:15 01/10/17 08:00 / Sodium Chloride IV 0 mcg/min .Q24H LINA 0 mls/hr Protocol Titration 2 MCG/MIN Piperacillin Sod/Tazobactam 100 mls @ 100 mls/hr 01/09/17 22:00 01/10/17 10: 46 Sod 2.25 gm/ Sodium Chloride IVPB 100 mls/hr Q6 LINA Administration Sodium Chloride 1,000 mls @ 150 mls/hr 01/10/17 00:21 01/10/17 09:00 Sodium Chloride 0.9% IV 01/10/17 18:11 150 mls/hr .[id number] LINA Administration Insulin Human Regular 0 units 01/09/17 23:00 01/10/17 06:15 Humulin R SC Not Given [facility] Protocol - Patient Studies Lab Studies: Lab Studies 01/10/17 01/10/17 01/10/17 Range/Units 12:13 10:13 08:06 WBC (4.8-10.8) K/uL RBC (3.80-5.20) Mil/uL Hgb (12.0-16.0) g/dL Hct (34.0-47.0) % MCV (81.0-99.0) fl MCH (27.0-31.0) pg MCHC (33.0-37.0) g/dL RDW (11.5-14.5) % Plt Count (130-400) K/uL MPV (7.2-11.7) fl Neut % (Auto) (50.0-75.0) % Lymph % (Auto) (20.0-40.0) % [place] % (Auto) (0.0-10.0) % Eos % (Auto) (0.0-4.0) % Baso % (Auto) (0.0-2.0) % Neut # (1.8-7.0) K/uL Lymph # (1.0-4.3) K/uL [place] # (0.0-0.8) K/uL Eos # (0.0-0.7) K/uL Baso # (0.0-0.2) K/uL Neutrophils % (Manual) (42-75) % Band Neutrophils % (0-2) % Lymphocytes % (Manual) (20-50) % Monocytes % (Manual) (0-10) % Platelet Estimate (NORMAL) Anisocytosis (manual) Ovalocytes PT (9.8-13.1) Seconds INR (0.9-1.2) APTT (25.6-37.1) Seconds pCO2 (35-45) mm/Hg pO2 (80-100) mm/Hg HCO3 (21-28) mmol/L ABG pH (7.35-7.45) ABG Total CO2 (22-28) mmol/L ABG O2 Saturation (95-98) % ABG Base Excess (-2.0-3.0) mmol/L Rakan Test ABG Potassium (3.6-5.2) mmol/L A-a O2 Difference mm/Hg Sodium (132-148) mmol/L Chloride (98-107) mmol/L Glucose (65-105) mg/dL Lactate (0.7-2.1) mmol/L Vent Mode Mechanical Rate FiO2 % Tidal Volume PEEP Crit Value Called To Crit Value Called By Crit Value Read Back Blood Gas Notified Time Potassium (3.6-5.0) MMOL/L Carbon Dioxide (22-30) mmol/L Anion Gap (10-20) BUN (7-17) mg/dl Creatinine (0.7-1.2) mg/dL Est GFR ( Amer) Est GFR (Non-Af Amer) POC Glucose (mg/dL) 153 H 159 H 149 H (65-110) mg/dL Random Glucose (65-105) mg/dL Serum Osmolality (272-300) mosm/kg Lactic Acid (0.7-2.1) MMOL/L Calcium (8.4-10.2) mg/dL Phosphorus (2.5-4.5) mg/dl Magnesium (1.6-2.3) MG/DL Total Bilirubin (0.2-1.3) mg/dl AST (14-36) U/L ALT (9-52) U/L Alkaline Phosphatase (38-126) U/L Total Creatine Kinase (30-135) U/L Troponin I (0.00-0.120) ng/mL NT-Pro-B Natriuret Pep (0-900) pg/ml Total Protein (6.3-8.2) G/DL Albumin (3.5-5.0) g/dL Globulin (2.2-3.9) gm/dL Albumin/Globulin Ratio (1.0-2.1) Arterial Blood Potassium (3.6-5.2) mmol/L Urine Color (YELLOW) Urine Clarity (Clear) Urine pH (5.0-8.0) Ur Specific [place] (1.003-1.030) Urine Protein (NEGATIVE) mg/dL Urine Glucose (UA) (Normal) mg/dL Urine Ketones (NEGATIVE) mg/dL Urine Blood (NEGATIVE) Urine Nitrate (NEGATIVE) Urine Bilirubin (NEGATIVE) Urine Urobilinogen (0.2-1.0) mg/dL Ur Leukocyte Esterase (Negative) Nabeel/uL Urine RBC (Auto) (0-3) /hpf Urine Microscopic WBC (0-5) /hpf Ur Squamous Epith Cells (0-5) /hpf Urine Bacteria (<OCC) Hyaline Casts (0-2) /hpf Ur Random Sodium meq/L Ur Random Potassium mmol/L Digoxin (0.8-2.0) ng/mL Blood Type Antibody Screen BBK History Checked 01/10/17 01/10/17 01/10/17 Range/Units 06:03 05:41 05:30 WBC (4.8-10.8) K/uL RBC (3.80-5.20) Mil/uL Hgb (12.0-16.0) g/dL Hct (34.0-47.0) % MCV (81.0-99.0) fl MCH (27.0-31.0) pg MCHC (33.0-37.0) g/dL RDW (11.5-14.5) % Plt Count (130-400) K/uL MPV (7.2-11.7) fl Neut % (Auto) (50.0-75.0) % Lymph % (Auto) (20.0-40.0) % [place] % (Auto) (0.0-10.0) % Eos % (Auto) (0.0-4.0) % Baso % (Auto) (0.0-2.0) % Neut # (1.8-7.0) K/uL Lymph # (1.0-4.3) K/uL [place] # (0.0-0.8) K/uL Eos # (0.0-0.7) K/uL Baso # (0.0-0.2) K/uL Neutrophils % (Manual) (42-75) % Band Neutrophils % (0-2) % Lymphocytes % (Manual) (20-50) % Monocytes % (Manual) (0-10) % Platelet Estimate (NORMAL) Anisocytosis (manual) Ovalocytes PT 11.8 (9.8-13.1) Seconds INR 1.1 (0.9-1.2) APTT 30.3 (25.6-37.1) Seconds pCO2 (35-45) mm/Hg pO2 (80-100) mm/Hg HCO3 (21-28) mmol/L ABG pH (7.35-7.45) ABG Total CO2 (22-28) mmol/L ABG O2 Saturation (95-98) % ABG Base Excess (-2.0-3.0) mmol/L Rakan Test ABG Potassium (3.6-5.2) mmol/L A-a O2 Difference mm/Hg Sodium (132-148) mmol/L Chloride (98-107) mmol/L Glucose (65-105) mg/dL Lactate (0.7-2.1) mmol/L Vent Mode Mechanical Rate FiO2 % Tidal Volume PEEP Crit Value Called To Crit Value Called By Crit Value Read Back Blood Gas Notified Time Potassium (3.6-5.0) MMOL/L Carbon Dioxide (22-30) mmol/L Anion Gap (10-20) BUN (7-17) mg/dl Creatinine (0.7-1.2) mg/dL Est GFR ( Amer) Est GFR (Non-Af Amer) POC Glucose (mg/dL) 141 H (65-110) mg/dL Random Glucose (65-105) mg/dL Serum Osmolality (272-300) mosm/kg Lactic Acid 2.7 H (0.7-2.1) MMOL/L Calcium (8.4-10.2) mg/dL Phosphorus (2.5-4.5) mg/dl Magnesium (1.6-2.3) MG/DL Total Bilirubin (0.2-1.3) mg/dl AST (14-36) U/L ALT (9-52) U/L Alkaline Phosphatase (38-126) U/L Total Creatine Kinase (30-135) U/L Troponin I (0.00-0.120) ng/mL NT-Pro-B Natriuret Pep (0-900) pg/ml Total Protein (6.3-8.2) G/DL Albumin (3.5-5.0) g/dL Globulin (2.2-3.9) gm/dL Albumin/Globulin Ratio (1.0-2.1) Arterial Blood Potassium (3.6-5.2) mmol/L Urine Color (YELLOW) Urine Clarity (Clear) Urine pH (5.0-8.0) Ur Specific [place] (1.003-1.030) Urine Protein (NEGATIVE) mg/dL Urine Glucose (UA) (Normal) mg/dL Urine Ketones (NEGATIVE) mg/dL Urine Blood (NEGATIVE) Urine Nitrate (NEGATIVE) Urine Bilirubin (NEGATIVE) Urine Urobilinogen (0.2-1.0) mg/dL Ur Leukocyte Esterase (Negative) Nabeel/uL Urine RBC (Auto) (0-3) /hpf Urine Microscopic WBC (0-5) /hpf Ur Squamous Epith Cells (0-5) /hpf Urine Bacteria (<OCC) Hyaline Casts (0-2) /hpf Ur Random Sodium meq/L Ur Random Potassium mmol/L Digoxin (0.8-2.0) ng/mL Blood Type Antibody Screen BBK History Checked 01/10/17 01/10/17 01/10/17 Range/Units 05:30 05:30 05:30 WBC 4.8 (4.8-10.8) K/uL RBC 2.54 L (3.80-5.20) Mil/uL Hgb 7.6 L (12.0-16.0) g/dL Hct 23.7 L (34.0-47.0) % MCV 93.2 D (81.0-99.0) fl MCH 29.9 (27.0-31.0) pg MCHC 32.1 L (33.0-37.0) g/dL RDW 20.0 H (11.5-14.5) % Plt Count 199 (130-400) K/uL MPV 8.5 (7.2-11.7) fl Neut % (Auto) 82.8 H (50.0-75.0) % Lymph % (Auto) 9.1 L (20.0-40.0) % [place] % (Auto) 8.0 (0.0-10.0) % Eos % (Auto) 0.0 (0.0-4.0) % Baso % (Auto) 0.1 (0.0-2.0) % Neut # 3.9 (1.8-7.0) K/uL Lymph # 0.4 L (1.0-4.3) K/uL [place] # 0.4 (0.0-0.8) K/uL Eos # 0.0 (0.0-0.7) K/uL Baso # 0.0 (0.0-0.2) K/uL Neutrophils % (Manual) 87 H (42-75) % Band Neutrophils % 2 (0-2) % Lymphocytes % (Manual) 10 L (20-50) % Monocytes % (Manual) 1 (0-10) % Platelet Estimate Normal (NORMAL) Anisocytosis (manual) Slight Ovalocytes Slight PT (9.8-13.1) Seconds INR (0.9-1.2) APTT (25.6-37.1) Seconds pCO2 (35-45) mm/Hg pO2 (80-100) mm/Hg HCO3 (21-28) mmol/L ABG pH (7.35-7.45) ABG Total CO2 (22-28) mmol/L ABG O2 Saturation (95-98) % ABG Base Excess (-2.0-3.0) mmol/L Rakan Test ABG Potassium (3.6-5.2) mmol/L A-a O2 Difference mm/Hg Sodium 149 H (132-148) mmol/L Chloride 106 (98-107) mmol/L Glucose (65-105) mg/dL Lactate (0.7-2.1) mmol/L Vent Mode Mechanical Rate FiO2 % Tidal Volume PEEP Crit Value Called To Crit Value Called By Crit Value Read Back Blood Gas Notified Time Potassium 4.5 (3.6-5.0) MMOL/L Carbon Dioxide 32 H (22-30) mmol/L Anion Gap 16 (10-20) BUN 55 H (7-17) mg/dl Creatinine 1.3 H (0.7-1.2) mg/dL Est GFR ( Amer) 49 Est GFR (Non-Af Amer) 40 POC Glucose (mg/dL) (65-110) mg/dL Random Glucose 137 H (65-105) mg/dL Serum Osmolality 388 H (272-300) mosm/kg Lactic Acid (0.7-2.1) MMOL/L Calcium 8.1 L (8.4-10.2) mg/dL Phosphorus (2.5-4.5) mg/dl Magnesium (1.6-2.3) MG/DL Total Bilirubin 0.3 (0.2-1.3) mg/dl AST 132 H D (14-36) U/L ALT 106 H D (9-52) U/L Alkaline Phosphatase 114 (38-126) U/L Total Creatine Kinase (30-135) U/L Troponin I 0.2400 H* (0.00-0.120) ng/mL NT-Pro-B Natriuret Pep (0-900) pg/ml Total Protein 6.1 L (6.3-8.2) G/DL Albumin 2.6 L (3.5-5.0) g/dL Globulin 3.4 (2.2-3.9) gm/dL Albumin/Globulin Ratio 0.8 L (1.0-2.1) Arterial Blood Potassium (3.6-5.2) mmol/L Urine Color (YELLOW) Urine Clarity (Clear) Urine pH (5.0-8.0) Ur Specific [place] (1.003-1.030) Urine Protein (NEGATIVE) mg/dL Urine Glucose (UA) (Normal) mg/dL Urine Ketones (NEGATIVE) mg/dL Urine Blood (NEGATIVE) Urine Nitrate (NEGATIVE) Urine Bilirubin (NEGATIVE) Urine Urobilinogen (0.2-1.0) mg/dL Ur Leukocyte Esterase (Negative) Nabeel/uL Urine RBC (Auto) (0-3) /hpf Urine Microscopic WBC (0-5) /hpf Ur Squamous Epith Cells (0-5) /hpf Urine Bacteria (<OCC) Hyaline Casts (0-2) /hpf Ur Random Sodium meq/L Ur Random Potassium mmol/L Digoxin (0.8-2.0) ng/mL Blood Type Antibody Screen BBK History Checked 01/10/17 01/10/17 01/10/17 Range/Units 04:00 03:44 02:23 WBC (4.8-10.8) K/uL RBC (3.80-5.20) Mil/uL Hgb (12.0-16.0) g/dL Hct (34.0-47.0) % MCV (81.0-99.0) fl MCH (27.0-31.0) pg MCHC (33.0-37.0) g/dL RDW (11.5-14.5) % Plt Count (130-400) K/uL MPV (7.2-11.7) fl Neut % (Auto) (50.0-75.0) % Lymph % (Auto) (20.0-40.0) % [place] % (Auto) (0.0-10.0) % Eos % (Auto) (0.0-4.0) % Baso % (Auto) (0.0-2.0) % Neut # (1.8-7.0) K/uL Lymph # (1.0-4.3) K/uL [place] # (0.0-0.8) K/uL Eos # (0.0-0.7) K/uL Baso # (0.0-0.2) K/uL Neutrophils % (Manual) (42-75) % Band Neutrophils % (0-2) % Lymphocytes % (Manual) (20-50) % Monocytes % (Manual) (0-10) % Platelet Estimate (NORMAL) Anisocytosis (manual) Ovalocytes PT (9.8-13.1) Seconds INR (0.9-1.2) APTT (25.6-37.1) Seconds pCO2 59 H (35-45) mm/Hg pO2 79 L (80-100) mm/Hg HCO3 30.2 H (21-28) mmol/L ABG pH 7.36 (7.35-7.45) ABG Total CO2 35.1 H (22-28) mmol/L ABG O2 Saturation 98.9 H (95-98) % ABG Base Excess 6.8 H (-2.0-3.0) mmol/L Rakan Test Yes ABG Potassium 4.3 (3.6-5.2) mmol/L A-a O2 Difference 204.0 mm/Hg Sodium 144.0 (132-148) mmol/L Chloride 110.0 H (98-107) mmol/L Glucose 137 H (65-105) mg/dL Lactate 2.3 H (0.7-2.1) mmol/L Vent Mode A/c Mechanical Rate 14 FiO2 50.0 % Tidal Volume 300 PEEP 0 Crit Value Called To Crit Value Called By Crit Value Read Back Blood Gas Notified Time Potassium (3.6-5.0) MMOL/L Carbon Dioxide (22-30) mmol/L Anion Gap (10-20) BUN (7-17) mg/dl Creatinine (0.7-1.2) mg/dL Est GFR ( Amer) Est GFR (Non-Af Amer) POC Glucose (mg/dL) 208 H 241 H (65-110) mg/dL Random Glucose (65-105) mg/dL Serum Osmolality (272-300) mosm/kg Lactic Acid (0.7-2.1) MMOL/L Calcium (8.4-10.2) mg/dL Phosphorus (2.5-4.5) mg/dl Magnesium (1.6-2.3) MG/DL Total Bilirubin (0.2-1.3) mg/dl AST (14-36) U/L ALT (9-52) U/L Alkaline Phosphatase (38-126) U/L Total Creatine Kinase (30-135) U/L Troponin I (0.00-0.120) ng/mL NT-Pro-B Natriuret Pep (0-900) pg/ml Total Protein (6.3-8.2) G/DL Albumin (3.5-5.0) g/dL Globulin (2.2-3.9) gm/dL Albumin/Globulin Ratio (1.0-2.1) Arterial Blood Potassium 4.3 (3.6-5.2) mmol/L Urine Color (YELLOW) Urine Clarity (Clear) Urine pH (5.0-8.0) Ur Specific [place] (1.003-1.030) Urine Protein (NEGATIVE) mg/dL Urine Glucose (UA) (Normal) mg/dL Urine Ketones (NEGATIVE) mg/dL Urine Blood (NEGATIVE) Urine Nitrate (NEGATIVE) Urine Bilirubin (NEGATIVE) Urine Urobilinogen (0.2-1.0) mg/dL Ur Leukocyte Esterase (Negative) Nabeel/uL Urine RBC (Auto) (0-3) /hpf Urine Microscopic WBC (0-5) /hpf Ur Squamous Epith Cells (0-5) /hpf Urine Bacteria (<OCC) Hyaline Casts (0-2) /hpf Ur Random Sodium meq/L Ur Random Potassium mmol/L Digoxin (0.8-2.0) ng/mL Blood Type Antibody Screen BBK History Checked 01/10/17 01/10/17 01/09/17 Range/Units 01:43 00:12 23:24 WBC (4.8-10.8) K/uL RBC (3.80-5.20) Mil/uL Hgb (12.0-16.0) g/dL Hct (34.0-47.0) % MCV (81.0-99.0) fl MCH (27.0-31.0) pg MCHC (33.0-37.0) g/dL RDW (11.5-14.5) % Plt Count (130-400) K/uL MPV (7.2-11.7) fl Neut % (Auto) (50.0-75.0) % Lymph % (Auto) (20.0-40.0) % [place] % (Auto) (0.0-10.0) % Eos % (Auto) (0.0-4.0) % Baso % (Auto) (0.0-2.0) % Neut # (1.8-7.0) K/uL Lymph # (1.0-4.3) K/uL [place] # (0.0-0.8) K/uL Eos # (0.0-0.7) K/uL Baso # (0.0-0.2) K/uL Neutrophils % (Manual) (42-75) % Band Neutrophils % (0-2) % Lymphocytes % (Manual) (20-50) % Monocytes % (Manual) (0-10) % Platelet Estimate (NORMAL) Anisocytosis (manual) Ovalocytes PT (9.8-13.1) Seconds INR (0.9-1.2) APTT (25.6-37.1) Seconds pCO2 (35-45) mm/Hg pO2 (80-100) mm/Hg HCO3 (21-28) mmol/L ABG pH (7.35-7.45) ABG Total CO2 (22-28) mmol/L ABG O2 Saturation (95-98) % ABG Base Excess (-2.0-3.0) mmol/L Rakan Test ABG Potassium (3.6-5.2) mmol/L A-a O2 Difference mm/Hg Sodium (132-148) mmol/L Chloride (98-107) mmol/L Glucose (65-105) mg/dL Lactate (0.7-2.1) mmol/L Vent Mode Mechanical Rate FiO2 % Tidal Volume PEEP Crit Value Called To Crit Value Called By Crit Value Read Back Blood Gas Notified Time Potassium (3.6-5.0) MMOL/L Carbon Dioxide (22-30) mmol/L Anion Gap (10-20) BUN (7-17) mg/dl Creatinine (0.7-1.2) mg/dL Est GFR ( Amer) Est GFR (Non-Af Amer) POC Glucose (mg/dL) 295 H (65-110) mg/dL Random Glucose (65-105) mg/dL Serum Osmolality (272-300) mosm/kg Lactic Acid 6.6 H* (0.7-2.1) MMOL/L Calcium (8.4-10.2) mg/dL Phosphorus (2.5-4.5) mg/dl Magnesium (1.6-2.3) MG/DL Total Bilirubin (0.2-1.3) mg/dl AST (14-36) U/L ALT (9-52) U/L Alkaline Phosphatase (38-126) U/L Total Creatine Kinase (30-135) U/L Troponin I (0.00-0.120) ng/mL NT-Pro-B Natriuret Pep (0-900) pg/ml Total Protein (6.3-8.2) G/DL Albumin (3.5-5.0) g/dL Globulin (2.2-3.9) gm/dL Albumin/Globulin Ratio (1.0-2.1) Arterial Blood Potassium (3.6-5.2) mmol/L Urine Color (YELLOW) Urine Clarity (Clear) Urine pH (5.0-8.0) Ur Specific [place] (1.003-1.030) Urine Protein (NEGATIVE) mg/dL Urine Glucose (UA) (Normal) mg/dL Urine Ketones (NEGATIVE) mg/dL Urine Blood (NEGATIVE) Urine Nitrate (NEGATIVE) Urine Bilirubin (NEGATIVE) Urine Urobilinogen (0.2-1.0) mg/dL Ur Leukocyte Esterase (Negative) Nabeel/uL Urine RBC (Auto) (0-3) /hpf Urine Microscopic WBC (0-5) /hpf Ur Squamous Epith Cells (0-5) /hpf Urine Bacteria (<OCC) Hyaline Casts (0-2) /hpf Ur Random Sodium meq/L Ur Random Potassium mmol/L Digoxin 1.2 (0.8-2.0) ng/mL Blood Type Antibody Screen BBK History Checked 01/09/17 01/09/17 01/09/17 Range/Units 22:51 22:15 22:12 WBC (4.8-10.8) K/uL RBC (3.80-5.20) Mil/uL Hgb (12.0-16.0) g/dL Hct (34.0-47.0) % MCV (81.0-99.0) fl MCH (27.0-31.0) pg MCHC (33.0-37.0) g/dL RDW (11.5-14.5) % Plt Count (130-400) K/uL MPV (7.2-11.7) fl Neut % (Auto) (50.0-75.0) % Lymph % (Auto) (20.0-40.0) % [place] % (Auto) (0.0-10.0) % Eos % (Auto) (0.0-4.0) % Baso % (Auto) (0.0-2.0) % Neut # (1.8-7.0) K/uL Lymph # (1.0-4.3) K/uL [place] # (0.0-0.8) K/uL Eos # (0.0-0.7) K/uL Baso # (0.0-0.2) K/uL Neutrophils % (Manual) (42-75) % Band Neutrophils % (0-2) % Lymphocytes % (Manual) (20-50) % Monocytes % (Manual) (0-10) % Platelet Estimate (NORMAL) Anisocytosis (manual) Ovalocytes PT (9.8-13.1) Seconds INR (0.9-1.2) APTT (25.6-37.1) Seconds pCO2 (35-45) mm/Hg pO2 (80-100) mm/Hg HCO3 (21-28) mmol/L ABG pH (7.35-7.45) ABG Total CO2 (22-28) mmol/L ABG O2 Saturation (95-98) % ABG Base Excess (-2.0-3.0) mmol/L Rakan Test ABG Potassium (3.6-5.2) mmol/L A-a O2 Difference mm/Hg Sodium 149 H (132-148) mmol/L Chloride 104 (98-107) mmol/L Glucose (65-105) mg/dL Lactate (0.7-2.1) mmol/L Vent Mode Mechanical Rate FiO2 % Tidal Volume PEEP Crit Value Called To Crit Value Called By Crit Value Read Back Blood Gas Notified Time Potassium 4.7 (3.6-5.0) MMOL/L Carbon Dioxide 32 H (22-30) mmol/L Anion Gap 18 (10-20) BUN 52 H (7-17) mg/dl Creatinine 1.3 H (0.7-1.2) mg/dL Est GFR ( Amer) 49 Est GFR (Non-Af Amer) 40 POC Glucose (mg/dL) 274 H (65-110) mg/dL Random Glucose 259 H (65-105) mg/dL Serum Osmolality 340 H (272-300) mosm/kg Lactic Acid (0.7-2.1) MMOL/L Calcium 8.4 (8.4-10.2) mg/dL Phosphorus (2.5-4.5) mg/dl Magnesium (1.6-2.3) MG/DL Total Bilirubin (0.2-1.3) mg/dl AST (14-36) U/L ALT (9-52) U/L Alkaline Phosphatase (38-126) U/L Total Creatine Kinase 42 (30-135) U/L Troponin I 0.1470 H* (0.00-0.120) ng/mL NT-Pro-B Natriuret Pep (0-900) pg/ml Total Protein (6.3-8.2) G/DL Albumin (3.5-5.0) g/dL Globulin (2.2-3.9) gm/dL Albumin/Globulin Ratio (1.0-2.1) Arterial Blood Potassium (3.6-5.2) mmol/L Urine Color (YELLOW) Urine Clarity (Clear) Urine pH (5.0-8.0) Ur Specific [place] (1.003-1.030) Urine Protein (NEGATIVE) mg/dL Urine Glucose (UA) (Normal) mg/dL Urine Ketones (NEGATIVE) mg/dL Urine Blood (NEGATIVE) Urine Nitrate (NEGATIVE) Urine Bilirubin (NEGATIVE) Urine Urobilinogen (0.2-1.0) mg/dL Ur Leukocyte Esterase (Negative) Nabeel/uL Urine RBC (Auto) (0-3) /hpf Urine Microscopic WBC (0-5) /hpf Ur Squamous Epith Cells (0-5) /hpf Urine Bacteria (<OCC) Hyaline Casts (0-2) /hpf Ur Random Sodium meq/L Ur Random Potassium mmol/L Digoxin (0.8-2.0) ng/mL Blood Type Antibody Screen BBK History Checked 01/09/17 01/09/17 01/09/17 Range/Units 21:13 17:47 17:37 WBC (4.8-10.8) K/uL RBC (3.80-5.20) Mil/uL Hgb (12.0-16.0) g/dL Hct (34.0-47.0) % MCV (81.0-99.0) fl MCH (27.0-31.0) pg MCHC (33.0-37.0) g/dL RDW (11.5-14.5) % Plt Count (130-400) K/uL MPV (7.2-11.7) fl Neut % (Auto) (50.0-75.0) % Lymph % (Auto) (20.0-40.0) % [place] % (Auto) (0.0-10.0) % Eos % (Auto) (0.0-4.0) % Baso % (Auto) (0.0-2.0) % Neut # (1.8-7.0) K/uL Lymph # (1.0-4.3) K/uL [place] # (0.0-0.8) K/uL Eos # (0.0-0.7) K/uL Baso # (0.0-0.2) K/uL Neutrophils % (Manual) (42-75) % Band Neutrophils % (0-2) % Lymphocytes % (Manual) (20-50) % Monocytes % (Manual) (0-10) % Platelet Estimate (NORMAL) Anisocytosis (manual) Ovalocytes PT (9.8-13.1) Seconds INR (0.9-1.2) APTT (25.6-37.1) Seconds pCO2 (35-45) mm/Hg pO2 (80-100) mm/Hg HCO3 (21-28) mmol/L ABG pH (7.35-7.45) ABG Total CO2 (22-28) mmol/L ABG O2 Saturation (95-98) % ABG Base Excess (-2.0-3.0) mmol/L Rakan Test ABG Potassium (3.6-5.2) mmol/L A-a O2 Difference mm/Hg Sodium (132-148) mmol/L Chloride (98-107) mmol/L Glucose (65-105) mg/dL Lactate (0.7-2.1) mmol/L Vent Mode Mechanical Rate FiO2 % Tidal Volume PEEP Crit Value Called To Crit Value Called By Crit Value Read Back Blood Gas Notified Time Potassium (3.6-5.0) MMOL/L Carbon Dioxide (22-30) mmol/L Anion Gap (10-20) BUN (7-17) mg/dl Creatinine (0.7-1.2) mg/dL Est GFR ( Amer) Est GFR (Non-Af Amer) POC Glucose (mg/dL) 262 H 328 H (65-110) mg/dL Random Glucose (65-105) mg/dL Serum Osmolality (272-300) mosm/kg Lactic Acid (0.7-2.1) MMOL/L Calcium (8.4-10.2) mg/dL Phosphorus (2.5-4.5) mg/dl Magnesium (1.6-2.3) MG/DL Total Bilirubin (0.2-1.3) mg/dl AST (14-36) U/L ALT (9-52) U/L Alkaline Phosphatase (38-126) U/L Total Creatine Kinase (30-135) U/L Troponin I (0.00-0.120) ng/mL NT-Pro-B Natriuret Pep (0-900) pg/ml Total Protein (6.3-8.2) G/DL Albumin (3.5-5.0) g/dL Globulin (2.2-3.9) gm/dL Albumin/Globulin Ratio (1.0-2.1) Arterial Blood Potassium (3.6-5.2) mmol/L Urine Color (YELLOW) Urine Clarity (Clear) Urine pH (5.0-8.0) Ur Specific [place] (1.003-1.030) Urine Protein (NEGATIVE) mg/dL Urine Glucose (UA) (Normal) mg/dL Urine Ketones (NEGATIVE) mg/dL Urine Blood (NEGATIVE) Urine Nitrate (NEGATIVE) Urine Bilirubin (NEGATIVE) Urine Urobilinogen (0.2-1.0) mg/dL Ur Leukocyte Esterase (Negative) Nabeel/uL Urine RBC (Auto) (0-3) /hpf Urine Microscopic WBC (0-5) /hpf Ur Squamous Epith Cells (0-5) /hpf Urine Bacteria (<OCC) Hyaline Casts (0-2) /hpf Ur Random Sodium 72 meq/L Ur Random Potassium 49.8 mmol/L Digoxin (0.8-2.0) ng/mL Blood Type Antibody Screen BBK History Checked 01/09/17 01/09/17 01/09/17 Range/Units 17:02 16:20 16:20 WBC (4.8-10.8) K/uL RBC (3.80-5.20) Mil/uL Hgb (12.0-16.0) g/dL Hct (34.0-47.0) % MCV (81.0-99.0) fl MCH (27.0-31.0) pg MCHC (33.0-37.0) g/dL RDW (11.5-14.5) % Plt Count (130-400) K/uL MPV (7.2-11.7) fl Neut % (Auto) (50.0-75.0) % Lymph % (Auto) (20.0-40.0) % [place] % (Auto) (0.0-10.0) % Eos % (Auto) (0.0-4.0) % Baso % (Auto) (0.0-2.0) % Neut # (1.8-7.0) K/uL Lymph # (1.0-4.3) K/uL [place] # (0.0-0.8) K/uL Eos # (0.0-0.7) K/uL Baso # (0.0-0.2) K/uL Neutrophils % (Manual) (42-75) % Band Neutrophils % (0-2) % Lymphocytes % (Manual) (20-50) % Monocytes % (Manual) (0-10) % Platelet Estimate (NORMAL) Anisocytosis (manual) Ovalocytes PT 11.0 (9.8-13.1) Seconds INR 1.1 (0.9-1.2) APTT 30.3 (25.6-37.1) Seconds pCO2 (35-45) mm/Hg pO2 (80-100) mm/Hg HCO3 (21-28) mmol/L ABG pH (7.35-7.45) ABG Total CO2 (22-28) mmol/L ABG O2 Saturation (95-98) % ABG Base Excess (-2.0-3.0) mmol/L Rakan Test ABG Potassium (3.6-5.2) mmol/L A-a O2 Difference mm/Hg Sodium (132-148) mmol/L Chloride (98-107) mmol/L Glucose (65-105) mg/dL Lactate (0.7-2.1) mmol/L Vent Mode Mechanical Rate FiO2 % Tidal Volume PEEP Crit Value Called To Crit Value Called By Crit Value Read Back Blood Gas Notified Time Potassium (3.6-5.0) MMOL/L Carbon Dioxide (22-30) mmol/L Anion Gap (10-20) BUN (7-17) mg/dl Creatinine (0.7-1.2) mg/dL Est GFR ( Amer) Est GFR (Non-Af Amer) POC Glucose (mg/dL) (65-110) mg/dL Random Glucose (65-105) mg/dL Serum Osmolality (272-300) mosm/kg Lactic Acid (0.7-2.1) MMOL/L Calcium (8.4-10.2) mg/dL Phosphorus (2.5-4.5) mg/dl Magnesium (1.6-2.3) MG/DL Total Bilirubin (0.2-1.3) mg/dl AST (14-36) U/L ALT (9-52) U/L Alkaline Phosphatase (38-126) U/L Total Creatine Kinase (30-135) U/L Troponin I (0.00-0.120) ng/mL NT-Pro-B Natriuret Pep (0-900) pg/ml Total Protein (6.3-8.2) G/DL Albumin (3.5-5.0) g/dL Globulin (2.2-3.9) gm/dL Albumin/Globulin Ratio (1.0-2.1) Arterial Blood Potassium (3.6-5.2) mmol/L Urine Color Lisa (YELLOW) Urine Clarity Cloudy (Clear) Urine pH 5.0 (5.0-8.0) Ur Specific [place] 1.018 (1.003-1.030) Urine Protein 100 (NEGATIVE) mg/dL Urine Glucose (UA) 50 (Normal) mg/dL Urine Ketones Negative (NEGATIVE) mg/dL Urine Blood Moderate (NEGATIVE) Urine Nitrate Negative (NEGATIVE) Urine Bilirubin Negative (NEGATIVE) Urine Urobilinogen 0.2-1.0 (0.2-1.0) mg/dL Ur Leukocyte Esterase Large (Negative) Nabeel/uL Urine RBC (Auto) 29 H (0-3) /hpf Urine Microscopic WBC 92 H (0-5) /hpf Ur Squamous Epith Cells 1 (0-5) /hpf Urine Bacteria Mod H (<OCC) Hyaline Casts 0-2 (0-2) /hpf Ur Random Sodium meq/L Ur Random Potassium mmol/L Digoxin (0.8-2.0) ng/mL Blood Type O POSITIVE Antibody Screen Negative BBK History Checked Patient has bt 01/09/17 01/09/17 01/09/17 Range/Units 16:20 16:15 16:15 WBC 3.8 L (4.8-10.8) K/uL RBC 2.82 L (3.80-5.20) Mil/uL Hgb 8.4 L (12.0-16.0) g/dL Hct 27.0 L (34.0-47.0) % MCV 95.7 (81.0-99.0) fl MCH 29.8 (27.0-31.0) pg MCHC 31.1 L (33.0-37.0) g/dL RDW 20.4 H (11.5-14.5) % Plt Count 279 (130-400) K/uL MPV 8.8 (7.2-11.7) fl Neut % (Auto) 67.7 (50.0-75.0) % Lymph % (Auto) 26.3 (20.0-40.0) % [place] % (Auto) 5.5 (0.0-10.0) % Eos % (Auto) 0.2 (0.0-4.0) % Baso % (Auto) 0.3 (0.0-2.0) % Neut # 2.6 (1.8-7.0) K/uL Lymph # 1.0 (1.0-4.3) K/uL [place] # 0.2 (0.0-0.8) K/uL Eos # 0.0 (0.0-0.7) K/uL Baso # 0.0 (0.0-0.2) K/uL Neutrophils % (Manual) (42-75) % Band Neutrophils % (0-2) % Lymphocytes % (Manual) (20-50) % Monocytes % (Manual) (0-10) % Platelet Estimate (NORMAL) Anisocytosis (manual) Ovalocytes PT (9.8-13.1) Seconds INR (0.9-1.2) APTT (25.6-37.1) Seconds pCO2 (35-45) mm/Hg pO2 (80-100) mm/Hg HCO3 (21-28) mmol/L ABG pH (7.35-7.45) ABG Total CO2 (22-28) mmol/L ABG O2 Saturation (95-98) % ABG Base Excess (-2.0-3.0) mmol/L Rakan Test ABG Potassium (3.6-5.2) mmol/L A-a O2 Difference mm/Hg Sodium 143 (132-148) mmol/L Chloride 98 (98-107) mmol/L Glucose (65-105) mg/dL Lactate (0.7-2.1) mmol/L Vent Mode Mechanical Rate FiO2 % Tidal Volume PEEP Crit Value Called To Crit Value Called By Crit Value Read Back Blood Gas Notified Time Potassium 6.8 H* (3.6-5.0) MMOL/L Carbon Dioxide 31 H (22-30) mmol/L Anion Gap 21 H (10-20) BUN 54 H (7-17) mg/dl Creatinine 1.3 H (0.7-1.2) mg/dL Est GFR ( Amer) 49 Est GFR (Non-Af Amer) 40 POC Glucose (mg/dL) (65-110) mg/dL Random Glucose 404 H* (65-105) mg/dL Serum Osmolality (272-300) mosm/kg Lactic Acid (0.7-2.1) MMOL/L Calcium 8.9 (8.4-10.2) mg/dL Phosphorus 7.5 H (2.5-4.5) mg/dl Magnesium 2.8 H (1.6-2.3) MG/DL Total Bilirubin 0.2 (0.2-1.3) mg/dl AST 284 H D (14-36) U/L ALT 138 H (9-52) U/L Alkaline Phosphatase 139 H (38-126) U/L Total Creatine Kinase (30-135) U/L Troponin I 0.0990 (0.00-0.120) ng/mL NT-Pro-B Natriuret Pep 33720 H (0-900) pg/ml Total Protein 5.9 L (6.3-8.2) G/DL Albumin 2.7 L (3.5-5.0) g/dL Globulin 3.2 (2.2-3.9) gm/dL Albumin/Globulin Ratio 0.8 L (1.0-2.1) Arterial Blood Potassium (3.6-5.2) mmol/L Urine Color (YELLOW) Urine Clarity (Clear) Urine pH (5.0-8.0) Ur Specific [place] (1.003-1.030) Urine Protein (NEGATIVE) mg/dL Urine Glucose (UA) (Normal) mg/dL Urine Ketones (NEGATIVE) mg/dL Urine Blood (NEGATIVE) Urine Nitrate (NEGATIVE) Urine Bilirubin (NEGATIVE) Urine Urobilinogen (0.2-1.0) mg/dL Ur Leukocyte Esterase (Negative) Nabeel/uL Urine RBC (Auto) (0-3) /hpf Urine Microscopic WBC (0-5) /hpf Ur Squamous Epith Cells (0-5) /hpf Urine Bacteria (<OCC) Hyaline Casts (0-2) /hpf Ur Random Sodium meq/L Ur Random Potassium mmol/L Digoxin 1.7 (0.8-2.0) ng/mL Blood Type Antibody Screen BBK History Checked 01/09/17 Range/Units 16:10 WBC (4.8-10.8) K/uL RBC (3.80-5.20) Mil/uL Hgb (12.0-16.0) g/dL Hct (34.0-47.0) % MCV (81.0-99.0) fl MCH (27.0-31.0) pg MCHC (33.0-37.0) g/dL RDW (11.5-14.5) % Plt Count (130-400) K/uL MPV (7.2-11.7) fl Neut % (Auto) (50.0-75.0) % Lymph % (Auto) (20.0-40.0) % [place] % (Auto) (0.0-10.0) % Eos % (Auto) (0.0-4.0) % Baso % (Auto) (0.0-2.0) % Neut # (1.8-7.0) K/uL Lymph # (1.0-4.3) K/uL [place] # (0.0-0.8) K/uL Eos # (0.0-0.7) K/uL Baso # (0.0-0.2) K/uL Neutrophils % (Manual) (42-75) % Band Neutrophils % (0-2) % Lymphocytes % (Manual) (20-50) % Monocytes % (Manual) (0-10) % Platelet Estimate (NORMAL) Anisocytosis (manual) Ovalocytes PT (9.8-13.1) Seconds INR (0.9-1.2) APTT (25.6-37.1) Seconds pCO2 85 H* (35-45) mm/Hg pO2 299 H (80-100) mm/Hg HCO3 28.9 H (21-28) mmol/L ABG pH 7.23 L (7.35-7.45) ABG Total CO2 38.2 H (22-28) mmol/L ABG O2 Saturation 100.5 H (95-98) % ABG Base Excess 5.0 H (-2.0-3.0) mmol/L Rakan Test Yes ABG Potassium 6.1 H (3.6-5.2) mmol/L A-a O2 Difference 308.0 mm/Hg Sodium 139.0 (132-148) mmol/L Chloride 104.0 (98-107) mmol/L Glucose 420 H* (65-105) mg/dL Lactate 4.6 H* (0.7-2.1) mmol/L Vent Mode Mechanical Rate FiO2 100.0 % Tidal Volume PEEP Crit Value Called To Dr javier lares Crit Value Called By 23 Crit Value Read Back Y Blood Gas Notified Time 1617 Potassium (3.6-5.0) MMOL/L Carbon Dioxide (22-30) mmol/L Anion Gap (10-20) BUN (7-17) mg/dl Creatinine (0.7-1.2) mg/dL Est GFR ( Amer) Est GFR (Non-Af Amer) POC Glucose (mg/dL) (65-110) mg/dL Random Glucose (65-105) mg/dL Serum Osmolality (272-300) mosm/kg Lactic Acid (0.7-2.1) MMOL/L Calcium (8.4-10.2) mg/dL Phosphorus (2.5-4.5) mg/dl Magnesium (1.6-2.3) MG/DL Total Bilirubin (0.2-1.3) mg/dl AST (14-36) U/L ALT (9-52) U/L Alkaline Phosphatase (38-126) U/L Total Creatine Kinase (30-135) U/L Troponin I (0.00-0.120) ng/mL NT-Pro-B Natriuret Pep (0-900) pg/ml Total Protein (6.3-8.2) G/DL Albumin (3.5-5.0) g/dL Globulin (2.2-3.9) gm/dL Albumin/Globulin Ratio (1.0-2.1) Arterial Blood Potassium 6.1 H (3.6-5.2) mmol/L Urine Color (YELLOW) Urine Clarity (Clear) Urine pH (5.0-8.0) Ur Specific [place] (1.003-1.030) Urine Protein (NEGATIVE) mg/dL Urine Glucose (UA) (Normal) mg/dL Urine Ketones (NEGATIVE) mg/dL Urine Blood (NEGATIVE) Urine Nitrate (NEGATIVE) Urine Bilirubin (NEGATIVE) Urine Urobilinogen (0.2-1.0) mg/dL Ur Leukocyte Esterase (Negative) Nabeel/uL Urine RBC (Auto) (0-3) /hpf Urine Microscopic WBC (0-5) /hpf Ur Squamous Epith Cells (0-5) /hpf Urine Bacteria (<OCC) Hyaline Casts (0-2) /hpf Ur Random Sodium meq/L Ur Random Potassium mmol/L Digoxin (0.8-2.0) ng/mL Blood Type Antibody Screen BBK History Checked Laboratory Results - last 24 hr 01/09/17 01/09/17 01/09/17 16:10 16:15 16:15 WBC 3.8 L RBC 2.82 L Hgb 8.4 L Hct 27.0 L MCV 95.7 MCH 29.8 MCHC 31.1 L RDW 20.4 H Plt Count 279 MPV 8.8 Neut % (Auto) 67.7 Lymph % (Auto) 26.3 [place] % (Auto) 5.5 Eos % (Auto) 0.2 Baso % (Auto) 0.3 Neut # 2.6 Lymph # 1.0 [place] # 0.2 Eos # 0.0 Baso # 0.0 Neutrophils % (Manual) Band Neutrophils % Lymphocytes % (Manual) Monocytes % (Manual) Platelet Estimate Anisocytosis (manual) Ovalocytes PT INR APTT pCO2 85 H* pO2 299 H HCO3 28.9 H ABG pH 7.23 L ABG Total CO2 38.2 H ABG O2 Saturation 100.5 H ABG Base Excess 5.0 H Rakan Test Yes ABG Potassium 6.1 H A-a O2 Difference 308.0 Sodium 139.0 143 Chloride 104.0 98 Glucose 420 H* Lactate 4.6 H* Vent Mode Mechanical Rate FiO2 100.0 Tidal Volume PEEP Crit Value Called To Dr javier lares Crit Value Called By 23 Crit Value Read Back Y Blood Gas Notified Time 1617 Potassium 6.8 H* Carbon Dioxide 31 H Anion Gap 21 H BUN 54 H Creatinine 1.3 H Est GFR ( Amer) 49 Est GFR (Non-Af Amer) 40 POC Glucose (mg/dL) Random Glucose 404 H* Serum Osmolality Lactic Acid Calcium 8.9 Phosphorus 7.5 H Magnesium 2.8 H Total Bilirubin 0.2 AST 284 H D ALT 138 H Alkaline Phosphatase 139 H Total Creatine Kinase Troponin I 0.0990 NT-Pro-B Natriuret Pep 72915 H Total Protein 5.9 L Albumin 2.7 L Globulin 3.2 Albumin/Globulin Ratio 0.8 L Arterial Blood Potassium 6.1 H Urine Color Urine Clarity Urine pH Ur Specific [place] Urine Protein Urine Glucose (UA) Urine Ketones Urine Blood Urine Nitrate Urine Bilirubin Urine Urobilinogen Ur Leukocyte Esterase Urine RBC (Auto) Urine Microscopic WBC Ur Squamous Epith Cells Urine Bacteria Hyaline Casts Ur Random Sodium Ur Random Potassium Digoxin Blood Type Antibody Screen BBK History Checked 01/09/17 01/09/17 01/09/17 16:20 16:20 16:20 WBC RBC Hgb Hct MCV MCH MCHC RDW Plt Count MPV Neut % (Auto) Lymph % (Auto) [place] % (Auto) Eos % (Auto) Baso % (Auto) Neut # Lymph # [place] # Eos # Baso # Neutrophils % (Manual) Band Neutrophils % Lymphocytes % (Manual) Monocytes % (Manual) Platelet Estimate Anisocytosis (manual) Ovalocytes PT 11.0 INR 1.1 APTT 30.3 pCO2 pO2 HCO3 ABG pH ABG Total CO2 ABG O2 Saturation ABG Base Excess Rakan Test ABG Potassium A-a O2 Difference Sodium Chloride Glucose Lactate Vent Mode Mechanical Rate FiO2 Tidal Volume PEEP Crit Value Called To Crit Value Called By Crit Value Read Back Blood Gas Notified Time Potassium Carbon Dioxide Anion Gap BUN Creatinine Est GFR ( Amer) Est GFR (Non-Af Amer) POC Glucose (mg/dL) Random Glucose Serum Osmolality Lactic Acid Calcium Phosphorus Magnesium Total Bilirubin AST ALT Alkaline Phosphatase Total Creatine Kinase Troponin I NT-Pro-B Natriuret Pep Total Protein Albumin Globulin Albumin/Globulin Ratio Arterial Blood Potassium Urine Color Urine Clarity Urine pH Ur Specific [place] Urine Protein Urine Glucose (UA) Urine Ketones Urine Blood Urine Nitrate Urine Bilirubin Urine Urobilinogen Ur Leukocyte Esterase Urine RBC (Auto) Urine Microscopic WBC Ur Squamous Epith Cells Urine Bacteria Hyaline Casts Ur Random Sodium Ur Random Potassium Digoxin 1.7 Blood Type O POSITIVE Antibody Screen Negative BBK History Checked Patient has bt 01/09/17 01/09/17 01/09/17 17:02 17:37 17:47 WBC RBC Hgb Hct MCV MCH MCHC RDW Plt Count MPV Neut % (Auto) Lymph % (Auto) [place] % (Auto) Eos % (Auto) Baso % (Auto) Neut # Lymph # [place] # Eos # Baso # Neutrophils % (Manual) Band Neutrophils % Lymphocytes % (Manual) Monocytes % (Manual) Platelet Estimate Anisocytosis (manual) Ovalocytes PT INR APTT pCO2 pO2 HCO3 ABG pH ABG Total CO2 ABG O2 Saturation ABG Base Excess Rakan Test ABG Potassium A-a O2 Difference Sodium Chloride Glucose Lactate Vent Mode Mechanical Rate FiO2 Tidal Volume PEEP Crit Value Called To Crit Value Called By Crit Value Read Back Blood Gas Notified Time Potassium Carbon Dioxide Anion Gap BUN Creatinine Est GFR ( Amer) Est GFR (Non-Af Amer) POC Glucose (mg/dL) 328 H Random Glucose Serum Osmolality Lactic Acid Calcium Phosphorus Magnesium Total Bilirubin AST ALT Alkaline Phosphatase Total Creatine Kinase Troponin I NT-Pro-B Natriuret Pep Total Protein Albumin Globulin Albumin/Globulin Ratio Arterial Blood Potassium Urine Color Lisa Urine Clarity Cloudy Urine pH 5.0 Ur Specific [place] 1.018 Urine Protein 100 Urine Glucose (UA) 50 Urine Ketones Negative Urine Blood Moderate Urine Nitrate Negative Urine Bilirubin Negative Urine Urobilinogen 0.2-1.0 Ur Leukocyte Esterase Large Urine RBC (Auto) 29 H Urine Microscopic WBC 92 H Ur Squamous Epith Cells 1 Urine Bacteria Mod H Hyaline Casts 0-2 Ur Random Sodium 72 Ur Random Potassium 49.8 Digoxin Blood Type Antibody Screen BBK History Checked 01/09/17 01/09/17 01/09/17 21:13 22:12 22:15 WBC RBC Hgb Hct MCV MCH MCHC RDW Plt Count MPV Neut % (Auto) Lymph % (Auto) [place] % (Auto) Eos % (Auto) Baso % (Auto) Neut # Lymph # [place] # Eos # Baso # Neutrophils % (Manual) Band Neutrophils % Lymphocytes % (Manual) Monocytes % (Manual) Platelet Estimate Anisocytosis (manual) Ovalocytes PT INR APTT pCO2 pO2 HCO3 ABG pH ABG Total CO2 ABG O2 Saturation ABG Base Excess Rakan Test ABG Potassium A-a O2 Difference Sodium 149 H Chloride 104 Glucose Lactate Vent Mode Mechanical Rate FiO2 Tidal Volume PEEP Crit Value Called To Crit Value Called By Crit Value Read Back Blood Gas Notified Time Potassium 4.7 Carbon Dioxide 32 H Anion Gap 18 BUN 52 H Creatinine 1.3 H Est GFR ( Amer) 49 Est GFR (Non-Af Amer) 40 POC Glucose (mg/dL) 262 H 274 H Random Glucose 259 H Serum Osmolality Lactic Acid Calcium 8.4 Phosphorus Magnesium Total Bilirubin AST ALT Alkaline Phosphatase Total Creatine Kinase 42 Troponin I 0.1470 H* NT-Pro-B Natriuret Pep Total Protein Albumin Globulin Albumin/Globulin Ratio Arterial Blood Potassium Urine Color Urine Clarity Urine pH Ur Specific [place] Urine Protein Urine Glucose (UA) Urine Ketones Urine Blood Urine Nitrate Urine Bilirubin Urine Urobilinogen Ur Leukocyte Esterase Urine RBC (Auto) Urine Microscopic WBC Ur Squamous Epith Cells Urine Bacteria Hyaline Casts Ur Random Sodium Ur Random Potassium Digoxin Blood Type Antibody Screen BBK History Checked 01/09/17 01/09/17 01/10/17 22:51 23:24 00:12 WBC RBC Hgb Hct MCV MCH MCHC RDW Plt Count MPV Neut % (Auto) Lymph % (Auto) [place] % (Auto) Eos % (Auto) Baso % (Auto) Neut # Lymph # [place] # Eos # Baso # Neutrophils % (Manual) Band Neutrophils % Lymphocytes % (Manual) Monocytes % (Manual) Platelet Estimate Anisocytosis (manual) Ovalocytes PT INR APTT pCO2 pO2 HCO3 ABG pH ABG Total CO2 ABG O2 Saturation ABG Base Excess Rakan Test ABG Potassium A-a O2 Difference Sodium Chloride Glucose Lactate Vent Mode Mechanical Rate FiO2 Tidal Volume PEEP Crit Value Called To Crit Value Called By Crit Value Read Back Blood Gas Notified Time Potassium Carbon Dioxide Anion Gap BUN Creatinine Est GFR ( Amer) Est GFR (Non-Af Amer) POC Glucose (mg/dL) 295 H Random Glucose Serum Osmolality 340 H Lactic Acid 6.6 H* Calcium Phosphorus Magnesium Total Bilirubin AST ALT Alkaline Phosphatase Total Creatine Kinase Troponin I NT-Pro-B Natriuret Pep Total Protein Albumin Globulin Albumin/Globulin Ratio Arterial Blood Potassium Urine Color Urine Clarity Urine pH Ur Specific [place] Urine Protein Urine Glucose (UA) Urine Ketones Urine Blood Urine Nitrate Urine Bilirubin Urine Urobilinogen Ur Leukocyte Esterase Urine RBC (Auto) Urine Microscopic WBC Ur Squamous Epith Cells Urine Bacteria Hyaline Casts Ur Random Sodium Ur Random Potassium Digoxin Blood Type Antibody Screen BBK History Checked 01/10/17 01/10/17 01/10/17 01:43 02:23 03:44 WBC RBC Hgb Hct MCV MCH MCHC RDW Plt Count MPV Neut % (Auto) Lymph % (Auto) [place] % (Auto) Eos % (Auto) Baso % (Auto) Neut # Lymph # [place] # Eos # Baso # Neutrophils % (Manual) Band Neutrophils % Lymphocytes % (Manual) Monocytes % (Manual) Platelet Estimate Anisocytosis (manual) Ovalocytes PT INR APTT pCO2 pO2 HCO3 ABG pH ABG Total CO2 ABG O2 Saturation ABG Base Excess Rakan Test ABG Potassium A-a O2 Difference Sodium Chloride Glucose Lactate Vent Mode Mechanical Rate FiO2 Tidal Volume PEEP Crit Value Called To Crit Value Called By Crit Value Read Back Blood Gas Notified Time Potassium Carbon Dioxide Anion Gap BUN Creatinine Est GFR ( Amer) Est GFR (Non-Af Amer) POC Glucose (mg/dL) 241 H 208 H Random Glucose Serum Osmolality Lactic Acid Calcium Phosphorus Magnesium Total Bilirubin AST ALT Alkaline Phosphatase Total Creatine Kinase Troponin I NT-Pro-B Natriuret Pep Total Protein Albumin Globulin Albumin/Globulin Ratio Arterial Blood Potassium Urine Color Urine Clarity Urine pH Ur Specific [place] Urine Protein Urine Glucose (UA) Urine Ketones Urine Blood Urine Nitrate Urine Bilirubin Urine Urobilinogen Ur Leukocyte Esterase Urine RBC (Auto) Urine Microscopic WBC Ur Squamous Epith Cells Urine Bacteria Hyaline Casts Ur Random Sodium Ur Random Potassium Digoxin 1.2 Blood Type Antibody Screen BBK History Checked 01/10/17 01/10/17 01/10/17 04:00 05:30 05:30 WBC 4.8 RBC 2.54 L Hgb 7.6 L Hct 23.7 L MCV 93.2 D MCH 29.9 MCHC 32.1 L RDW 20.0 H Plt Count 199 MPV 8.5 Neut % (Auto) 82.8 H Lymph % (Auto) 9.1 L [place] % (Auto) 8.0 Eos % (Auto) 0.0 Baso % (Auto) 0.1 Neut # 3.9 Lymph # 0.4 L [place] # 0.4 Eos # 0.0 Baso # 0.0 Neutrophils % (Manual) 87 H Band Neutrophils % 2 Lymphocytes % (Manual) 10 L Monocytes % (Manual) 1 Platelet Estimate Normal Anisocytosis (manual) Slight Ovalocytes Slight PT INR APTT pCO2 59 H pO2 79 L HCO3 30.2 H ABG pH 7.36 ABG Total CO2 35.1 H ABG O2 Saturation 98.9 H ABG Base Excess 6.8 H Rakan Test Yes ABG Potassium 4.3 A-a O2 Difference 204.0 Sodium 144.0 149 H Chloride 110.0 H 106 Glucose 137 H Lactate 2.3 H Vent Mode A/c Mechanical Rate 14 FiO2 50.0 Tidal Volume 300 PEEP 0 Crit Value Called To Crit Value Called By Crit Value Read Back Blood Gas Notified Time Potassium 4.5 Carbon Dioxide 32 H Anion Gap 16 BUN 55 H Creatinine 1.3 H Est GFR ( Amer) 49 Est GFR (Non-Af Amer) 40 POC Glucose (mg/dL) Random Glucose 137 H Serum Osmolality Lactic Acid Calcium 8.1 L Phosphorus Magnesium Total Bilirubin 0.3 AST 132 H D ALT 106 H D Alkaline Phosphatase 114 Total Creatine Kinase Troponin I 0.2400 H* NT-Pro-B Natriuret Pep Total Protein 6.1 L Albumin 2.6 L Globulin 3.4 Albumin/Globulin Ratio 0.8 L Arterial Blood Potassium 4.3 Urine Color Urine Clarity Urine pH Ur Specific [place] Urine Protein Urine Glucose (UA) Urine Ketones Urine Blood Urine Nitrate Urine Bilirubin Urine Urobilinogen Ur Leukocyte Esterase Urine RBC (Auto) Urine Microscopic WBC Ur Squamous Epith Cells Urine Bacteria Hyaline Casts Ur Random Sodium Ur Random Potassium Digoxin Blood Type Antibody Screen BBK History Checked 01/10/17 01/10/17 01/10/17 05:30 05:30 05:41 WBC RBC Hgb Hct MCV MCH MCHC RDW Plt Count MPV Neut % (Auto) Lymph % (Auto) [place] % (Auto) Eos % (Auto) Baso % (Auto) Neut # Lymph # [place] # Eos # Baso # Neutrophils % (Manual) Band Neutrophils % Lymphocytes % (Manual) Monocytes % (Manual) Platelet Estimate Anisocytosis (manual) Ovalocytes PT 11.8 INR 1.1 APTT 30.3 pCO2 pO2 HCO3 ABG pH ABG Total CO2 ABG O2 Saturation ABG Base Excess Rakan Test ABG Potassium A-a O2 Difference Sodium Chloride Glucose Lactate Vent Mode Mechanical Rate FiO2 Tidal Volume PEEP Crit Value Called To Crit Value Called By Crit Value Read Back Blood Gas Notified Time Potassium Carbon Dioxide Anion Gap BUN Creatinine Est GFR ( Amer) Est GFR (Non-Af Amer) POC Glucose (mg/dL) 141 H Random Glucose Serum Osmolality 388 H Lactic Acid Calcium Phosphorus Magnesium Total Bilirubin AST ALT Alkaline Phosphatase Total Creatine Kinase Troponin I NT-Pro-B Natriuret Pep Total Protein Albumin Globulin Albumin/Globulin Ratio Arterial Blood Potassium Urine Color Urine Clarity Urine pH Ur Specific [place] Urine Protein Urine Glucose (UA) Urine Ketones Urine Blood Urine Nitrate Urine Bilirubin Urine Urobilinogen Ur Leukocyte Esterase Urine RBC (Auto) Urine Microscopic WBC Ur Squamous Epith Cells Urine Bacteria Hyaline Casts Ur Random Sodium Ur Random Potassium Digoxin Blood Type Antibody Screen BBK History Checked 01/10/17 01/10/17 01/10/17 06:03 08:06 10:13 WBC RBC Hgb Hct MCV MCH MCHC RDW Plt Count MPV Neut % (Auto) Lymph % (Auto) [place] % (Auto) Eos % (Auto) Baso % (Auto) Neut # Lymph # [place] # Eos # Baso # Neutrophils % (Manual) Band Neutrophils % Lymphocytes % (Manual) Monocytes % (Manual) Platelet Estimate Anisocytosis (manual) Ovalocytes PT INR APTT pCO2 pO2 HCO3 ABG pH ABG Total CO2 ABG O2 Saturation ABG Base Excess Rakan Test ABG Potassium A-a O2 Difference Sodium Chloride Glucose Lactate Vent Mode Mechanical Rate FiO2 Tidal Volume PEEP Crit Value Called To Crit Value Called By Crit Value Read Back Blood Gas Notified Time Potassium Carbon Dioxide Anion Gap BUN Creatinine Est GFR ( Amer) Est GFR (Non-Af Amer) POC Glucose (mg/dL) 149 H 159 H Random Glucose Serum Osmolality Lactic Acid 2.7 H Calcium Phosphorus Magnesium Total Bilirubin AST ALT Alkaline Phosphatase Total Creatine Kinase Troponin I NT-Pro-B Natriuret Pep Total Protein Albumin Globulin Albumin/Globulin Ratio Arterial Blood Potassium Urine Color Urine Clarity Urine pH Ur Specific [place] Urine Protein Urine Glucose (UA) Urine Ketones Urine Blood Urine Nitrate Urine Bilirubin Urine Urobilinogen Ur Leukocyte Esterase Urine RBC (Auto) Urine Microscopic WBC Ur Squamous Epith Cells Urine Bacteria Hyaline Casts Ur Random Sodium Ur Random Potassium Digoxin Blood Type Antibody Screen BBK History Checked 01/10/17 12:13 WBC RBC Hgb Hct MCV MCH MCHC RDW Plt Count MPV Neut % (Auto) Lymph % (Auto) [place] % (Auto) Eos % (Auto) Baso % (Auto) Neut # Lymph # [place] # Eos # Baso # Neutrophils % (Manual) Band Neutrophils % Lymphocytes % (Manual) Monocytes % (Manual) Platelet Estimate Anisocytosis (manual) Ovalocytes PT INR APTT pCO2 pO2 HCO3 ABG pH ABG Total CO2 ABG O2 Saturation ABG Base Excess Rakan Test ABG Potassium A-a O2 Difference Sodium Chloride Glucose Lactate Vent Mode Mechanical Rate FiO2 Tidal Volume PEEP Crit Value Called To Crit Value Called By Crit Value Read Back Blood Gas Notified Time Potassium Carbon Dioxide Anion Gap BUN Creatinine Est GFR ( Amer) Est GFR (Non-Af Amer) POC Glucose (mg/dL) 153 H Random Glucose Serum Osmolality Lactic Acid Calcium Phosphorus Magnesium Total Bilirubin AST ALT Alkaline Phosphatase Total Creatine Kinase Troponin I NT-Pro-B Natriuret Pep Total Protein Albumin Globulin Albumin/Globulin Ratio Arterial Blood Potassium Urine Color Urine Clarity Urine pH Ur Specific [place] Urine Protein Urine Glucose (UA) Urine Ketones Urine Blood Urine Nitrate Urine Bilirubin Urine Urobilinogen Ur Leukocyte Esterase Urine RBC (Auto) Urine Microscopic WBC Ur Squamous Epith Cells Urine Bacteria Hyaline Casts Ur Random Sodium Ur Random Potassium Digoxin Blood Type Antibody Screen BBK History Checked EKG/Cardiology Studies: Cardiology / EKG Studies 01/09/17 16:03 ELECTROCARDIOGRAM Stat Comment: Mode Of Transportation: Reason For Exam: suzi Isolation: Contact 01/10/17 EKG [ELECTROCARDIOGRAM] Routine Comment: Mode Of Transportation: PORTABLE Reason For Exam: CHF Isolation: Contact Fingerstick Blood Sugar Results: 153 Review of Systems - Review of Systems Systems not reviewed;Unavailable: Intubated Critical Care Progress Note - Ventilator Checklist Head of Bed 30 Degrees: Yes Daily Sedation Vacation: Yes Daily Assessment of Readiness to Wean: Yes Daily Spontaneous Breathing Trial: Yes PUD Prophalyxis: Yes DVT Prophylaxis: Yes Oral Care with Chlorhexidine Gluconate {CHG}: Yes - Vent Settings MODE:: ASSIST CONTROL TIDAL VOLUME:: 300 RESP RATE:: 14 FIO2:: 40 PEEP:: 3 - Extremities/Vascular Does the Patient have a Central Venous Catheter?: Yes Insertion Site: Internal Jugular Vein Does the Patient need a Central Venous Catheter?: Yes Does the Patient have a Atkins Catheter?: Yes Does the Patient need a Atkins Catheter?: Yes Catheter Insertion Criteria: Need for accurate measurement of output in critically ill patient - Restraints Justification for Restraints: High risk for self extubation - Prophylaxis GI Prophylaxis GI: Pepsid - Prophylaxis DVT Prophylaxis DVT: SCDs
[2017-01-10] MEDS: Sodium Chloride 0.45% 1,000 ML IV SCH (16:45)
--- NOTE | 2017-01-10 16:54 | CP.PCM.CON ---
History of Present Illness - History of Present Illness History of Present Illness: renal consult dictated Past Patient History - Infectious Disease Hx of Infectious Diseases: None - Tetanus Immunizations Tetanus Immunization: Unknown - Past Medical History & Family History Past Medical History?: Yes - Past Social History Smoking Status: unknown - CARDIAC Hx Atrial Fibrillation: Yes Hx Cardia Arrhythmia: Yes Hx Congestive Heart Failure: Yes Hx Hypercholesterolemia: Yes Hx Hypertension: Yes - PULMONARY Hx Asthma: No Hx Chronic Obstructive Pulmonary Disease (COPD): No Hx Emphysema: Yes - NEUROLOGICAL Hx Dementia: Yes - HEENT Hx HEENT Problems: Yes Hx Cataracts: Yes (both eyes) - RENAL Hx Chronic Kidney Disease: No - ENDOCRINE/METABOLIC Hx Endocrine Disorders: No - HEMATOLOGICAL/ONCOLOGICAL Hx Anemia: Yes - INTEGUMENTARY Hx Dermatological Problems: No - MUSCULOSKELETAL/RHEUMATOLOGICAL Hx Musculoskeletal Disorders: Yes Hx Falls: No (unknown) Hx Unsteady Gait: Yes - GASTROINTESTINAL Hx Gastrointestinal Disorders: Yes Other/Comment: patient is very anorectic. >with PEG - GENITOURINARY/GYNECOLOGICAL Hx Genitourinary Disorders: No - PSYCHIATRIC Hx Psychophysiologic Disorder: No Hx Substance Use: (unknown) - SURGICAL HISTORY Hx Surgeries: Yes Hx Cataract Extraction: Yes (2014) Hx Eye Surgery: Yes - ANESTHESIA Hx Anesthesia: Yes Hx Anesthesia Reactions: No Hx Malignant Hyperthermia: No Meds Allergies/Adverse Reactions: Allergies Allergy/AdvReac Type Severity Reaction Status Date / Time No Known Allergies Allergy Verified 12/16/16 15:11 - Medications Medications: Current Medications Acetaminophen (Tylenol 650mg/20.3ml Solution Ud) 650 mg PO Q6 PRN PRN Reason: fever Last Admin: 01/10/17 09:00 Dose: 650 mg Famotidine (Pepcid) 20 mg IVP Q12 LINA Last Admin: 01/10/17 09:00 Dose: 20 mg Norepinephrine Bitartrate 4 mg (/ Sodium Chloride) 254 mls @ 7.62 mls/hr IV .Q24H LINA; 2 MCG/MIN PRN Reason: Protocol Last Titration: 01/10/17 08:00 Dose: 0 mcg/min, 0 mls/hr Piperacillin Sod/Tazobactam (Sod 2.25 gm/ Sodium Chloride) 100 mls @ 100 mls/ hr IVPB Q6 LINA Last Admin: 01/10/17 16:32 Dose: 100 mls/hr Sodium Chloride (Sodium Chloride 0.45%) 1,000 mls @ 75 mls/hr IV .[id number] [facility] Stop: 01/11/17 16:30 Insulin Human Regular (Humulin R) 0 units SC ACCU-CHECK [facility] PRN Reason: Protocol Last Admin: 01/10/17 06:15 Dose: Not Given Results - Vital Signs Recent Vital Signs: Last Vital Signs Temp 98.4 F 01/10/17 16:00 Pulse 94 H 01/10/17 16:00 Resp 24 01/10/17 16:00 BP 129/88 01/10/17 16:00 Pulse Ox 99 01/10/17 16:00 - Labs Result Diagrams: 01/10/17 05:30 01/10/17 05:30 Labs: Laboratory Results - last 24 hr 01/09/17 01/09/17 01/09/17 16:15 16:20 16:20 WBC RBC Hgb Hct MCV MCH MCHC RDW Plt Count MPV Neut % (Auto) Lymph % (Auto) Peach % (Auto) Eos % (Auto) Baso % (Auto) Neut # Lymph # Peach # Eos # Baso # Neutrophils % (Manual) Band Neutrophils % Lymphocytes % (Manual) Monocytes % (Manual) Platelet Estimate Anisocytosis (manual) Ovalocytes PT INR APTT pCO2 pO2 HCO3 ABG pH ABG Total CO2 ABG O2 Saturation ABG Base Excess Rakan Test ABG Potassium A-a O2 Difference Glucose Lactate Vent Mode Mechanical Rate FiO2 Tidal Volume PEEP Sodium 143 Potassium 6.8 H* Chloride 98 Carbon Dioxide 31 H Anion Gap 21 H BUN 54 H Creatinine 1.3 H Est GFR ( Amer) 49 Est GFR (Non-Af Amer) 40 POC Glucose (mg/dL) Random Glucose 404 H* Serum Osmolality Lactic Acid Calcium 8.9 Phosphorus 7.5 H Magnesium 2.8 H Total Bilirubin 0.2 AST 284 H D ALT 138 H Alkaline Phosphatase 139 H Total Creatine Kinase Troponin I 0.0990 NT-Pro-B Natriuret Pep 56547 H Total Protein 5.9 L Albumin 2.7 L Globulin 3.2 Albumin/Globulin Ratio 0.8 L Arterial Blood Potassium Urine Color Urine Clarity Urine pH Ur Specific Portal Urine Protein Urine Glucose (UA) Urine Ketones Urine Blood Urine Nitrate Urine Bilirubin Urine Urobilinogen Ur Leukocyte Esterase Urine RBC (Auto) Urine Microscopic WBC Ur Squamous Epith Cells Urine Bacteria Hyaline Casts Ur Random Sodium Ur Random Potassium Digoxin 1.7 Blood Type O POSITIVE Antibody Screen Negative 01/09/17 01/09/17 01/09/17 17:02 17:37 17:47 WBC RBC Hgb Hct MCV MCH MCHC RDW Plt Count MPV Neut % (Auto) Lymph % (Auto) Peach % (Auto) Eos % (Auto) Baso % (Auto) Neut # Lymph # Peach # Eos # Baso # Neutrophils % (Manual) Band Neutrophils % Lymphocytes % (Manual) Monocytes % (Manual) Platelet Estimate Anisocytosis (manual) Ovalocytes PT INR APTT pCO2 pO2 HCO3 ABG pH ABG Total CO2 ABG O2 Saturation ABG Base Excess Rakan Test ABG Potassium A-a O2 Difference Glucose Lactate Vent Mode Mechanical Rate FiO2 Tidal Volume PEEP Sodium Potassium Chloride Carbon Dioxide Anion Gap BUN Creatinine Est GFR ( Amer) Est GFR (Non-Af Amer) POC Glucose (mg/dL) 328 H Random Glucose Serum Osmolality Lactic Acid Calcium Phosphorus Magnesium Total Bilirubin AST ALT Alkaline Phosphatase Total Creatine Kinase Troponin I NT-Pro-B Natriuret Pep Total Protein Albumin Globulin Albumin/Globulin Ratio Arterial Blood Potassium Urine Color Lisa Urine Clarity Cloudy Urine pH 5.0 Ur Specific Portal 1.018 Urine Protein 100 Urine Glucose (UA) 50 Urine Ketones Negative Urine Blood Moderate Urine Nitrate Negative Urine Bilirubin Negative Urine Urobilinogen 0.2-1.0 Ur Leukocyte Esterase Large Urine RBC (Auto) 29 H Urine Microscopic WBC 92 H Ur Squamous Epith Cells 1 Urine Bacteria Mod H Hyaline Casts 0-2 Ur Random Sodium 72 Ur Random Potassium 49.8 Digoxin Blood Type Antibody Screen 01/09/17 01/09/17 01/09/17 21:13 22:12 22:15 WBC RBC Hgb Hct MCV MCH MCHC RDW Plt Count MPV Neut % (Auto) Lymph % (Auto) Peach % (Auto) Eos % (Auto) Baso % (Auto) Neut # Lymph # Peach # Eos # Baso # Neutrophils % (Manual) Band Neutrophils % Lymphocytes % (Manual) Monocytes % (Manual) Platelet Estimate Anisocytosis (manual) Ovalocytes PT INR APTT pCO2 pO2 HCO3 ABG pH ABG Total CO2 ABG O2 Saturation ABG Base Excess Rakan Test ABG Potassium A-a O2 Difference Glucose Lactate Vent Mode Mechanical Rate FiO2 Tidal Volume PEEP Sodium 149 H Potassium 4.7 Chloride 104 Carbon Dioxide 32 H Anion Gap 18 BUN 52 H Creatinine 1.3 H Est GFR ( Amer) 49 Est GFR (Non-Af Amer) 40 POC Glucose (mg/dL) 262 H 274 H Random Glucose 259 H Serum Osmolality Lactic Acid Calcium 8.4 Phosphorus Magnesium Total Bilirubin AST ALT Alkaline Phosphatase Total Creatine Kinase 42 Troponin I 0.1470 H* NT-Pro-B Natriuret Pep Total Protein Albumin Globulin Albumin/Globulin Ratio Arterial Blood Potassium Urine Color Urine Clarity Urine pH Ur Specific Portal Urine Protein Urine Glucose (UA) Urine Ketones Urine Blood Urine Nitrate Urine Bilirubin Urine Urobilinogen Ur Leukocyte Esterase Urine RBC (Auto) Urine Microscopic WBC Ur Squamous Epith Cells Urine Bacteria Hyaline Casts Ur Random Sodium Ur Random Potassium Digoxin Blood Type Antibody Screen 01/09/17 01/09/17 01/10/17 22:51 23:24 00:12 WBC RBC Hgb Hct MCV MCH MCHC RDW Plt Count MPV Neut % (Auto) Lymph % (Auto) Peach % (Auto) Eos % (Auto) Baso % (Auto) Neut # Lymph # Peach # Eos # Baso # Neutrophils % (Manual) Band Neutrophils % Lymphocytes % (Manual) Monocytes % (Manual) Platelet Estimate Anisocytosis (manual) Ovalocytes PT INR APTT pCO2 pO2 HCO3 ABG pH ABG Total CO2 ABG O2 Saturation ABG Base Excess Rakan Test ABG Potassium A-a O2 Difference Glucose Lactate Vent Mode Mechanical Rate FiO2 Tidal Volume PEEP Sodium Potassium Chloride Carbon Dioxide Anion Gap BUN Creatinine Est GFR ( Amer) Est GFR (Non-Af Amer) POC Glucose (mg/dL) 295 H Random Glucose Serum Osmolality 340 H Lactic Acid 6.6 H* Calcium Phosphorus Magnesium Total Bilirubin AST ALT Alkaline Phosphatase Total Creatine Kinase Troponin I NT-Pro-B Natriuret Pep Total Protein Albumin Globulin Albumin/Globulin Ratio Arterial Blood Potassium Urine Color Urine Clarity Urine pH Ur Specific Portal Urine Protein Urine Glucose (UA) Urine Ketones Urine Blood Urine Nitrate Urine Bilirubin Urine Urobilinogen Ur Leukocyte Esterase Urine RBC (Auto) Urine Microscopic WBC Ur Squamous Epith Cells Urine Bacteria Hyaline Casts Ur Random Sodium Ur Random Potassium Digoxin Blood Type Antibody Screen 01/10/17 01/10/17 01/10/17 01:43 02:23 03:44 WBC RBC Hgb Hct MCV MCH MCHC RDW Plt Count MPV Neut % (Auto) Lymph % (Auto) Peach % (Auto) Eos % (Auto) Baso % (Auto) Neut # Lymph # Peach # Eos # Baso # Neutrophils % (Manual) Band Neutrophils % Lymphocytes % (Manual) Monocytes % (Manual) Platelet Estimate Anisocytosis (manual) Ovalocytes PT INR APTT pCO2 pO2 HCO3 ABG pH ABG Total CO2 ABG O2 Saturation ABG Base Excess Rakan Test ABG Potassium A-a O2 Difference Glucose Lactate Vent Mode Mechanical Rate FiO2 Tidal Volume PEEP Sodium Potassium Chloride Carbon Dioxide Anion Gap BUN Creatinine Est GFR ( Amer) Est GFR (Non-Af Amer) POC Glucose (mg/dL) 241 H 208 H Random Glucose Serum Osmolality Lactic Acid Calcium Phosphorus Magnesium Total Bilirubin AST ALT Alkaline Phosphatase Total Creatine Kinase Troponin I NT-Pro-B Natriuret Pep Total Protein Albumin Globulin Albumin/Globulin Ratio Arterial Blood Potassium Urine Color Urine Clarity Urine pH Ur Specific Portal Urine Protein Urine Glucose (UA) Urine Ketones Urine Blood Urine Nitrate Urine Bilirubin Urine Urobilinogen Ur Leukocyte Esterase Urine RBC (Auto) Urine Microscopic WBC Ur Squamous Epith Cells Urine Bacteria Hyaline Casts Ur Random Sodium Ur Random Potassium Digoxin 1.2 Blood Type Antibody Screen 01/10/17 01/10/17 01/10/17 04:00 05:30 05:30 WBC 4.8 RBC 2.54 L Hgb 7.6 L Hct 23.7 L MCV 93.2 D MCH 29.9 MCHC 32.1 L RDW 20.0 H Plt Count 199 MPV 8.5 Neut % (Auto) 82.8 H Lymph % (Auto) 9.1 L Peach % (Auto) 8.0 Eos % (Auto) 0.0 Baso % (Auto) 0.1 Neut # 3.9 Lymph # 0.4 L Peach # 0.4 Eos # 0.0 Baso # 0.0 Neutrophils % (Manual) 87 H Band Neutrophils % 2 Lymphocytes % (Manual) 10 L Monocytes % (Manual) 1 Platelet Estimate Normal Anisocytosis (manual) Slight Ovalocytes Slight PT INR APTT pCO2 59 H pO2 79 L HCO3 30.2 H ABG pH 7.36 ABG Total CO2 35.1 H ABG O2 Saturation 98.9 H ABG Base Excess 6.8 H Rakan Test Yes ABG Potassium 4.3 A-a O2 Difference 204.0 Glucose 137 H Lactate 2.3 H Vent Mode A/c Mechanical Rate 14 FiO2 50.0 Tidal Volume 300 PEEP 0 Sodium 144.0 149 H Potassium 4.5 Chloride 110.0 H 106 Carbon Dioxide 32 H Anion Gap 16 BUN 55 H Creatinine 1.3 H Est GFR ( Amer) 49 Est GFR (Non-Af Amer) 40 POC Glucose (mg/dL) Random Glucose 137 H Serum Osmolality Lactic Acid Calcium 8.1 L Phosphorus Magnesium Total Bilirubin 0.3 AST 132 H D ALT 106 H D Alkaline Phosphatase 114 Total Creatine Kinase Troponin I 0.2400 H* NT-Pro-B Natriuret Pep Total Protein 6.1 L Albumin 2.6 L Globulin 3.4 Albumin/Globulin Ratio 0.8 L Arterial Blood Potassium 4.3 Urine Color Urine Clarity Urine pH Ur Specific Portal Urine Protein Urine Glucose (UA) Urine Ketones Urine Blood Urine Nitrate Urine Bilirubin Urine Urobilinogen Ur Leukocyte Esterase Urine RBC (Auto) Urine Microscopic WBC Ur Squamous Epith Cells Urine Bacteria Hyaline Casts Ur Random Sodium Ur Random Potassium Digoxin Blood Type Antibody Screen 01/10/17 01/10/17 01/10/17 05:30 05:30 05:41 WBC RBC Hgb Hct MCV MCH MCHC RDW Plt Count MPV Neut % (Auto) Lymph % (Auto) Peach % (Auto) Eos % (Auto) Baso % (Auto) Neut # Lymph # Peach # Eos # Baso # Neutrophils % (Manual) Band Neutrophils % Lymphocytes % (Manual) Monocytes % (Manual) Platelet Estimate Anisocytosis (manual) Ovalocytes PT 11.8 INR 1.1 APTT 30.3 pCO2 pO2 HCO3 ABG pH ABG Total CO2 ABG O2 Saturation ABG Base Excess Rakan Test ABG Potassium A-a O2 Difference Glucose Lactate Vent Mode Mechanical Rate FiO2 Tidal Volume PEEP Sodium Potassium Chloride Carbon Dioxide Anion Gap BUN Creatinine Est GFR ( Amer) Est GFR (Non-Af Amer) POC Glucose (mg/dL) 141 H Random Glucose Serum Osmolality 388 H Lactic Acid Calcium Phosphorus Magnesium Total Bilirubin AST ALT Alkaline Phosphatase Total Creatine Kinase Troponin I NT-Pro-B Natriuret Pep Total Protein Albumin Globulin Albumin/Globulin Ratio Arterial Blood Potassium Urine Color Urine Clarity Urine pH Ur Specific Portal Urine Protein Urine Glucose (UA) Urine Ketones Urine Blood Urine Nitrate Urine Bilirubin Urine Urobilinogen Ur Leukocyte Esterase Urine RBC (Auto) Urine Microscopic WBC Ur Squamous Epith Cells Urine Bacteria Hyaline Casts Ur Random Sodium Ur Random Potassium Digoxin Blood Type Antibody Screen 01/10/17 01/10/17 01/10/17 06:03 08:06 10:13 WBC RBC Hgb Hct MCV MCH MCHC RDW Plt Count MPV Neut % (Auto) Lymph % (Auto) Peach % (Auto) Eos % (Auto) Baso % (Auto) Neut # Lymph # Peach # Eos # Baso # Neutrophils % (Manual) Band Neutrophils % Lymphocytes % (Manual) Monocytes % (Manual) Platelet Estimate Anisocytosis (manual) Ovalocytes PT INR APTT pCO2 pO2 HCO3 ABG pH ABG Total CO2 ABG O2 Saturation ABG Base Excess Rakan Test ABG Potassium A-a O2 Difference Glucose Lactate Vent Mode Mechanical Rate FiO2 Tidal Volume PEEP Sodium Potassium Chloride Carbon Dioxide Anion Gap BUN Creatinine Est GFR ( Amer) Est GFR (Non-Af Amer) POC Glucose (mg/dL) 149 H 159 H Random Glucose Serum Osmolality Lactic Acid 2.7 H Calcium Phosphorus Magnesium Total Bilirubin AST ALT Alkaline Phosphatase Total Creatine Kinase Troponin I NT-Pro-B Natriuret Pep Total Protein Albumin Globulin Albumin/Globulin Ratio Arterial Blood Potassium Urine Color Urine Clarity Urine pH Ur Specific Portal Urine Protein Urine Glucose (UA) Urine Ketones Urine Blood Urine Nitrate Urine Bilirubin Urine Urobilinogen Ur Leukocyte Esterase Urine RBC (Auto) Urine Microscopic WBC Ur Squamous Epith Cells Urine Bacteria Hyaline Casts Ur Random Sodium Ur Random Potassium Digoxin Blood Type Antibody Screen 01/10/17 01/10/17 12:13 15:25 WBC RBC Hgb Hct MCV MCH MCHC RDW Plt Count MPV Neut % (Auto) Lymph % (Auto) Peach % (Auto) Eos % (Auto) Baso % (Auto) Neut # Lymph # Peach # Eos # Baso # Neutrophils % (Manual) Band Neutrophils % Lymphocytes % (Manual) Monocytes % (Manual) Platelet Estimate Anisocytosis (manual) Ovalocytes PT INR APTT pCO2 pO2 HCO3 ABG pH ABG Total CO2 ABG O2 Saturation ABG Base Excess Rakan Test ABG Potassium A-a O2 Difference Glucose Lactate Vent Mode Mechanical Rate FiO2 Tidal Volume PEEP Sodium Potassium Chloride Carbon Dioxide Anion Gap BUN Creatinine Est GFR ( Amer) Est GFR (Non-Af Amer) POC Glucose (mg/dL) 153 H 120 H Random Glucose Serum Osmolality Lactic Acid Calcium Phosphorus Magnesium Total Bilirubin AST ALT Alkaline Phosphatase Total Creatine Kinase Troponin I NT-Pro-B Natriuret Pep Total Protein Albumin Globulin Albumin/Globulin Ratio Arterial Blood Potassium Urine Color Urine Clarity Urine pH Ur Specific Portal Urine Protein Urine Glucose (UA) Urine Ketones Urine Blood Urine Nitrate Urine Bilirubin Urine Urobilinogen Ur Leukocyte Esterase Urine RBC (Auto) Urine Microscopic WBC Ur Squamous Epith Cells Urine Bacteria Hyaline Casts Ur Random Sodium Ur Random Potassium Digoxin Blood Type Antibody Screen
--- NOTE | 2017-01-10 18:04 | CP.PCM.HP ---
History of Present Illness - History of Present Illness History of Present Illness: This is a 71 y/o female admitted after having found unresponsive with agonal breathing . CPR was performed and was intubated. She was just recently discharged from [facility]. She has a hx of atrial fibrillation, HTN renal failure, COPD and CHF with EF 30 %. She has multiple hospitalizations in the past. Present on Admission - Present on Admission Any Indicators Present on Admission: No History of DVT/PE: No History of Uncontrolled Diabetes: Yes Urinary Catheter: No Decubitus Ulcer Present: No Review of Systems - Respiratory Respiratory: Dyspnea Past Patient History - Infectious Disease Hx of Infectious Diseases: None - Tetanus Immunizations Tetanus Immunization: Unknown - Past Medical History & Family History Past Medical History?: Yes - Past Social History Smoking Status: unknown - CARDIAC Hx Atrial Fibrillation: Yes Hx Cardia Arrhythmia: Yes Hx Congestive Heart Failure: Yes Hx Hypercholesterolemia: Yes Hx Hypertension: Yes - PULMONARY Hx Asthma: No Hx Chronic Obstructive Pulmonary Disease (COPD): No Hx Emphysema: Yes - NEUROLOGICAL Hx Dementia: Yes - HEENT Hx HEENT Problems: Yes Hx Cataracts: Yes (both eyes) - RENAL Hx Chronic Kidney Disease: No - ENDOCRINE/METABOLIC Hx Endocrine Disorders: No - HEMATOLOGICAL/ONCOLOGICAL Hx Anemia: Yes - INTEGUMENTARY Hx Dermatological Problems: No - MUSCULOSKELETAL/RHEUMATOLOGICAL Hx Musculoskeletal Disorders: Yes Hx Falls: No (unknown) Hx Unsteady Gait: Yes - GASTROINTESTINAL Hx Gastrointestinal Disorders: Yes Other/Comment: patient is very anorectic. >with PEG - GENITOURINARY/GYNECOLOGICAL Hx Genitourinary Disorders: No - PSYCHIATRIC Hx Psychophysiologic Disorder: No Hx Substance Use: (unknown) - SURGICAL HISTORY Hx Surgeries: Yes Hx Cataract Extraction: Yes (2014) Hx Eye Surgery: Yes - ANESTHESIA Hx Anesthesia: Yes Hx Anesthesia Reactions: No Hx Malignant Hyperthermia: No Meds Home Medications: Home Medication List Medication Instructions Recorded Confirmed Type Acetylcysteine [Mucomyst 10% 4ML] 2 ml IH RBID carlyn 02/04/17 Rx Albuterol/Ipratropium [Duoneb 3 3 ml INH RQ4 neb 02/04/17 Rx mg/0.5 mg (3 ml) UD] Allergies/Adverse Reactions: Allergies Allergy/AdvReac Type Severity Reaction Status Date / Time No Known Allergies Allergy Verified 02/07/17 15:49 Physical Exam - Respiratory Exam Respiratory Exam: Rales, Rhonchi - Cardiovascular Exam Cardiovascular Exam: Tachycardia - GI/Abdominal Exam GI & Abdominal Exam: Normal Bowel Sounds ( ) - Neurological Exam Neurological exam: Altered Results - Vital Signs Recent Vital Signs: Last Vital Signs Temp 98.4 F 01/10/17 16:00 Pulse 98 H 01/10/17 17:00 Resp 17 01/10/17 17:00 BP 138/76 01/10/17 17:00 Pulse Ox 96 01/10/17 17:00 - Labs Result Diagrams: 02/03/17 12:00 02/03/17 12:00 Labs: Laboratory Results - last 24 hr 01/09/17 01/09/17 01/09/17 17:37 17:47 21:13 WBC RBC Hgb Hct MCV MCH MCHC RDW Plt Count MPV Neut % (Auto) Lymph % (Auto) [place] % (Auto) Eos % (Auto) Baso % (Auto) Neut # Lymph # [place] # Eos # Baso # Neutrophils % (Manual) Band Neutrophils % Lymphocytes % (Manual) Monocytes % (Manual) Platelet Estimate Anisocytosis (manual) Ovalocytes PT INR APTT pCO2 pO2 HCO3 ABG pH ABG Total CO2 ABG O2 Saturation ABG Base Excess Rakan Test ABG Potassium A-a O2 Difference Glucose Lactate Vent Mode Mechanical Rate FiO2 Tidal Volume PEEP Sodium Potassium Chloride Carbon Dioxide Anion Gap BUN Creatinine Est GFR ( Amer) Est GFR (Non-Af Amer) POC Glucose (mg/dL) 328 H 262 H Random Glucose Serum Osmolality Lactic Acid Calcium Total Bilirubin AST ALT Alkaline Phosphatase Total Creatine Kinase Troponin I Total Protein Albumin Globulin Albumin/Globulin Ratio Arterial Blood Potassium Ur Random Sodium 72 Ur Random Potassium 49.8 Digoxin 01/09/17 01/09/17 01/09/17 22:12 22:15 22:51 WBC RBC Hgb Hct MCV MCH MCHC RDW Plt Count MPV Neut % (Auto) Lymph % (Auto) [place] % (Auto) Eos % (Auto) Baso % (Auto) Neut # Lymph # [place] # Eos # Baso # Neutrophils % (Manual) Band Neutrophils % Lymphocytes % (Manual) Monocytes % (Manual) Platelet Estimate Anisocytosis (manual) Ovalocytes PT INR APTT pCO2 pO2 HCO3 ABG pH ABG Total CO2 ABG O2 Saturation ABG Base Excess Rakan Test ABG Potassium A-a O2 Difference Glucose Lactate Vent Mode Mechanical Rate FiO2 Tidal Volume PEEP Sodium 149 H Potassium 4.7 Chloride 104 Carbon Dioxide 32 H Anion Gap 18 BUN 52 H Creatinine 1.3 H Est GFR ( Amer) 49 Est GFR (Non-Af Amer) 40 POC Glucose (mg/dL) 274 H Random Glucose 259 H Serum Osmolality 340 H Lactic Acid Calcium 8.4 Total Bilirubin AST ALT Alkaline Phosphatase Total Creatine Kinase 42 Troponin I 0.1470 H* Total Protein Albumin Globulin Albumin/Globulin Ratio Arterial Blood Potassium Ur Random Sodium Ur Random Potassium Digoxin 01/09/17 01/10/17 01/10/17 23:24 00:12 01:43 WBC RBC Hgb Hct MCV MCH MCHC RDW Plt Count MPV Neut % (Auto) Lymph % (Auto) [place] % (Auto) Eos % (Auto) Baso % (Auto) Neut # Lymph # [place] # Eos # Baso # Neutrophils % (Manual) Band Neutrophils % Lymphocytes % (Manual) Monocytes % (Manual) Platelet Estimate Anisocytosis (manual) Ovalocytes PT INR APTT pCO2 pO2 HCO3 ABG pH ABG Total CO2 ABG O2 Saturation ABG Base Excess Rakan Test ABG Potassium A-a O2 Difference Glucose Lactate Vent Mode Mechanical Rate FiO2 Tidal Volume PEEP Sodium Potassium Chloride Carbon Dioxide Anion Gap BUN Creatinine Est GFR ( Amer) Est GFR (Non-Af Amer) POC Glucose (mg/dL) 295 H Random Glucose Serum Osmolality Lactic Acid 6.6 H* Calcium Total Bilirubin AST ALT Alkaline Phosphatase Total Creatine Kinase Troponin I Total Protein Albumin Globulin Albumin/Globulin Ratio Arterial Blood Potassium Ur Random Sodium Ur Random Potassium Digoxin 1.2 01/10/17 01/10/17 01/10/17 02:23 03:44 04:00 WBC RBC Hgb Hct MCV MCH MCHC RDW Plt Count MPV Neut % (Auto) Lymph % (Auto) [place] % (Auto) Eos % (Auto) Baso % (Auto) Neut # Lymph # [place] # Eos # Baso # Neutrophils % (Manual) Band Neutrophils % Lymphocytes % (Manual) Monocytes % (Manual) Platelet Estimate Anisocytosis (manual) Ovalocytes PT INR APTT pCO2 59 H pO2 79 L HCO3 30.2 H ABG pH 7.36 ABG Total CO2 35.1 H ABG O2 Saturation 98.9 H ABG Base Excess 6.8 H Rakan Test Yes ABG Potassium 4.3 A-a O2 Difference 204.0 Glucose 137 H Lactate 2.3 H Vent Mode A/c Mechanical Rate 14 FiO2 50.0 Tidal Volume 300 PEEP 0 Sodium 144.0 Potassium Chloride 110.0 H Carbon Dioxide Anion Gap BUN Creatinine Est GFR ( Amer) Est GFR (Non-Af Amer) POC Glucose (mg/dL) 241 H 208 H Random Glucose Serum Osmolality Lactic Acid Calcium Total Bilirubin AST ALT Alkaline Phosphatase Total Creatine Kinase Troponin I Total Protein Albumin Globulin Albumin/Globulin Ratio Arterial Blood Potassium 4.3 Ur Random Sodium Ur Random Potassium Digoxin 01/10/17 01/10/17 01/10/17 05:30 05:30 05:30 WBC 4.8 RBC 2.54 L Hgb 7.6 L Hct 23.7 L MCV 93.2 D MCH 29.9 MCHC 32.1 L RDW 20.0 H Plt Count 199 MPV 8.5 Neut % (Auto) 82.8 H Lymph % (Auto) 9.1 L [place] % (Auto) 8.0 Eos % (Auto) 0.0 Baso % (Auto) 0.1 Neut # 3.9 Lymph # 0.4 L [place] # 0.4 Eos # 0.0 Baso # 0.0 Neutrophils % (Manual) 87 H Band Neutrophils % 2 Lymphocytes % (Manual) 10 L Monocytes % (Manual) 1 Platelet Estimate Normal Anisocytosis (manual) Slight Ovalocytes Slight PT INR APTT pCO2 pO2 HCO3 ABG pH ABG Total CO2 ABG O2 Saturation ABG Base Excess Rakan Test ABG Potassium A-a O2 Difference Glucose Lactate Vent Mode Mechanical Rate FiO2 Tidal Volume PEEP Sodium 149 H Potassium 4.5 Chloride 106 Carbon Dioxide 32 H Anion Gap 16 BUN 55 H Creatinine 1.3 H Est GFR ( Amer) 49 Est GFR (Non-Af Amer) 40 POC Glucose (mg/dL) Random Glucose 137 H Serum Osmolality 388 H Lactic Acid Calcium 8.1 L Total Bilirubin 0.3 AST 132 H D ALT 106 H D Alkaline Phosphatase 114 Total Creatine Kinase Troponin I 0.2400 H* Total Protein 6.1 L Albumin 2.6 L Globulin 3.4 Albumin/Globulin Ratio 0.8 L Arterial Blood Potassium Ur Random Sodium Ur Random Potassium Digoxin 01/10/17 01/10/17 01/10/17 05:30 05:41 06:03 WBC RBC Hgb Hct MCV MCH MCHC RDW Plt Count MPV Neut % (Auto) Lymph % (Auto) [place] % (Auto) Eos % (Auto) Baso % (Auto) Neut # Lymph # [place] # Eos # Baso # Neutrophils % (Manual) Band Neutrophils % Lymphocytes % (Manual) Monocytes % (Manual) Platelet Estimate Anisocytosis (manual) Ovalocytes PT 11.8 INR 1.1 APTT 30.3 pCO2 pO2 HCO3 ABG pH ABG Total CO2 ABG O2 Saturation ABG Base Excess Rakan Test ABG Potassium A-a O2 Difference Glucose Lactate Vent Mode Mechanical Rate FiO2 Tidal Volume PEEP Sodium Potassium Chloride Carbon Dioxide Anion Gap BUN Creatinine Est GFR ( Amer) Est GFR (Non-Af Amer) POC Glucose (mg/dL) 141 H Random Glucose Serum Osmolality Lactic Acid 2.7 H Calcium Total Bilirubin AST ALT Alkaline Phosphatase Total Creatine Kinase Troponin I Total Protein Albumin Globulin Albumin/Globulin Ratio Arterial Blood Potassium Ur Random Sodium Ur Random Potassium Digoxin 01/10/17 01/10/17 01/10/17 08:06 10:13 12:13 WBC RBC Hgb Hct MCV MCH MCHC RDW Plt Count MPV Neut % (Auto) Lymph % (Auto) [place] % (Auto) Eos % (Auto) Baso % (Auto) Neut # Lymph # [place] # Eos # Baso # Neutrophils % (Manual) Band Neutrophils % Lymphocytes % (Manual) Monocytes % (Manual) Platelet Estimate Anisocytosis (manual) Ovalocytes PT INR APTT pCO2 pO2 HCO3 ABG pH ABG Total CO2 ABG O2 Saturation ABG Base Excess Rakan Test ABG Potassium A-a O2 Difference Glucose Lactate Vent Mode Mechanical Rate FiO2 Tidal Volume PEEP Sodium Potassium Chloride Carbon Dioxide Anion Gap BUN Creatinine Est GFR ( Amer) Est GFR (Non-Af Amer) POC Glucose (mg/dL) 149 H 159 H 153 H Random Glucose Serum Osmolality Lactic Acid Calcium Total Bilirubin AST ALT Alkaline Phosphatase Total Creatine Kinase Troponin I Total Protein Albumin Globulin Albumin/Globulin Ratio Arterial Blood Potassium Ur Random Sodium Ur Random Potassium Digoxin 01/10/17 15:25 WBC RBC Hgb Hct MCV MCH MCHC RDW Plt Count MPV Neut % (Auto) Lymph % (Auto) [place] % (Auto) Eos % (Auto) Baso % (Auto) Neut # Lymph # [place] # Eos # Baso # Neutrophils % (Manual) Band Neutrophils % Lymphocytes % (Manual) Monocytes % (Manual) Platelet Estimate Anisocytosis (manual) Ovalocytes PT INR APTT pCO2 pO2 HCO3 ABG pH ABG Total CO2 ABG O2 Saturation ABG Base Excess Rakan Test ABG Potassium A-a O2 Difference Glucose Lactate Vent Mode Mechanical Rate FiO2 Tidal Volume PEEP Sodium Potassium Chloride Carbon Dioxide Anion Gap BUN Creatinine Est GFR ( Amer) Est GFR (Non-Af Amer) POC Glucose (mg/dL) 120 H Random Glucose Serum Osmolality Lactic Acid Calcium Total Bilirubin AST ALT Alkaline Phosphatase Total Creatine Kinase Troponin I Total Protein Albumin Globulin Albumin/Globulin Ratio Arterial Blood Potassium Ur Random Sodium Ur Random Potassium Digoxin Assessment & Plan (1) Respiratory failure Status: Acute (2) Pneumonia Status: Acute (3) Cardiac arrest Status: Acute (4) Congestive heart failure (CHF) Status: Acute (5) Dehydration Status: Acute (6) Anemia Status: Chronic (7) Atrial fibrillation Status: Chronic (8) COPD (chronic obstructive pulmonary disease) Status: Chronic - Assessment and Plan (Free Text) Plan: Cont intubatiion' follow up blood gasses Iv antibiotics IV fluids cardiology Pulmonary
[2017-01-11 05:23] LABS: ABG ALLEN TEST YES; ABG MECHANICAL RATE 14; ARTERIAL BLOOD GAS HCO3 31.7 mmol/L (21-28); ARTERIAL BLOOD GAS MODE PRVC/AC; ARTERIAL BLOOD GAS O2 CAPACITY 10.3 mL/dL (16-24); ARTERIAL BLOOD GAS O2 CONTENT 10.4 ML/dL (15-23); ARTERIAL BLOOD GAS PH 7.41 (7.35-7.45); ARTERIAL BLOOD GAS PO2 124 mm/Hg (80-100); ARTERIAL BLOOD HGB O2 SAT 97.5 % (95.0-98.0); ATERIAL BLOOD GAS PEEP 5; CARBOXYHEMOGLOBIN 2.2 % (0.5-1.5); HHB -0.8 % (0.0-5.0); METHEMOGLOBIN 1.1 % (0.0-3.0)
[2017-01-11 06:50] LABS: HEMATOCRIT 22.1 % (34.0-47.0); MEAN CELL VOLUME 91.7 fl (81.0-99.0); MEAN CORPUSCULAR HEMOGLOBIN 29.5 pg (27.0-31.0); MEAN CORPUSCULAR HGB CONC 32.2 g/dL (33.0-37.0); WHITE BLOOD COUNT 7.4 K/uL (4.8-10.8)
[2017-01-11 07:05] LABS: CALCIUM 8.1 mg/dL (8.4-10.2); POTASSIUM 3.3 MMOL/L (3.6-5.0)
[2017-01-11] MEDS: Insulin Regular 100 units/ml SC SCH ×4 (07:30→22:10)
--- NOTE | 2017-01-11 08:09 | CP.CCUPN ---
CCU Subjective - Physician Review Events Since Last Encounter (Free Text): 01/11/17 08:06 Patient on ventilator, on PRVC TV 300, FIO2 40%, RR 14, no pressors, opens eyes to verbal stimuli, no fever, events reviewed CCU Objective - Vital Signs / Intake & Output Vital Signs (Last 4 hours): Vital Signs Pulse Resp BP Pulse Ox 01/11/17 06:00 74 14 104/58 L 100 Intake and Output (Last 8hrs): Intake & Output 01/10/17 01/11/17 01/11/17 22:59 06:59 14:59 Intake Total 1215 1085 Output Total 400 200 Balance 815 885 Intake: IV 675 525 Intake, Piggyback 200 100 Tube Feeding 140 260 Free Water Flush 200 200 Output: Urine 400 200 Urethral (Atkins) 400 200 Other: # Bowel Movements 1 - Physical Exam Head: Positive for: Normocephalic Pupils: Positive for: PERRL Extroacular Muscles: Positive for: EOMI Conjunctiva: Positive for: Normal. Negative for: Icteric Mouth: Positive for: Moist Mucous Membranes Neck: Positive for: JVD. Negative for: Meningeal Signs Respiratory/Chest: Positive for: Decreased Breath Sounds, Rales. Negative for: Accessory Muscle Use, Wheezes Cardiovascular: Positive for: Irregular Rhythm, Bradycardic. Negative for: Murmurs, Rub Abdomen: Positive for: Normal Bowel Sounds, Other (PEG intact). Negative for: Tenderness, Distention Lower Extremity: Positive for: NORMAL PULSES. Negative for: CALF TENDERNESS, Cyanosis Neurological: Positive for: Other (not following any commands) Skin: Positive for: Warm. Negative for: Rashes - Medications Active Medications: Active Medications Generic Name Dose Route Start Last Admin Trade Name Freq PRN Reason Stop Dose Admin Acetaminophen 650 mg 01/10/17 08:40 01/10/17 09:00 Tylenol 650mg/20.3ml Solution Ud PO 650 mg Q6 PRN Administration fever Famotidine 20 mg 01/09/17 21:00 01/10/17 21:18 Pepcid IVP 20 mg Q12 LINA Administration Piperacillin Sod/Tazobactam 100 mls @ 100 mls/hr 01/09/17 22:00 01/11/17 03: 35 Sod 2.25 gm/ Sodium Chloride IVPB 100 mls/hr Q6 LINA Administration Sodium Chloride 1,000 mls @ 75 mls/hr 01/10/17 16:30 01/10/17 16:45 Sodium Chloride 0.45% IV 01/11/17 16:30 75 mls/hr .[id number] LINA Administration Insulin Human Regular 0 units 01/09/17 23:00 01/10/17 23:03 Humulin R SC Not Given ACCU-CHECK LINA Protocol - Patient Studies Lab Studies: Microbiology Studies 01/10/17 09:40 Gram Stain - Final Trachasp 01/09/17 16:38 Urine Culture - Final Urine,Atkins No Growth (<1,000 CFU/ML) 01/09/17 16:20 Blood Culture - Preliminary Blood-Venous NO GROWTH AFTER 24 HOURS Lab Studies 01/11/17 01/11/17 01/11/17 Range/Units 06:05 05:30 05:30 WBC 7.4 D (4.8-10.8) K/uL RBC 2.41 L (3.80-5.20) Mil/uL Hgb 7.1 L (12.0-16.0) g/dL Hct 22.1 L (34.0-47.0) % MCV 91.7 (81.0-99.0) fl MCH 29.5 (27.0-31.0) pg MCHC 32.2 L (33.0-37.0) g/dL RDW 20.0 H (11.5-14.5) % Plt Count 169 (130-400) K/uL pCO2 (35-45) mm/Hg pO2 (80-100) mm/Hg HCO3 (21-28) mmol/L ABG pH (7.35-7.45) ABG Total CO2 (22-28) mmol/L ABG O2 Saturation (95-98) % ABG O2 Content (15-23) ML/dL ABG Base Excess (-2.0-3.0) mmol/L ABG Hemoglobin (11.7-17.4) g/dL ABG Carboxyhemoglobin (0.5-1.5) % POC ABG HHb (Measured) (0.0-5.0) % ABG Methemoglobin (0.0-3.0) % ABG O2 Capacity (16-24) mL/dL Rakan Test A-a O2 Difference mm/Hg Hgb O2 Saturation (95.0-98.0) % Vent Mode Mechanical Rate FiO2 % Tidal Volume PEEP Sodium 148 (132-148) mmol/l Potassium 3.3 L (3.6-5.0) MMOL/L Chloride 107 (98-107) mmol/L Carbon Dioxide 31 H (22-30) mmol/L Anion Gap 13 (10-20) BUN 55 H (7-17) mg/dl Creatinine 1.1 (0.7-1.2) mg/dL Est GFR ( Amer) 59 Est GFR (Non-Af Amer) 49 POC Glucose (mg/dL) 125 H (65-110) mg/dL Random Glucose 119 H (65-105) mg/dL Calcium 8.1 L (8.4-10.2) mg/dL 01/11/17 01/10/17 01/10/17 Range/Units 05:08 22:27 15:25 WBC (4.8-10.8) K/uL RBC (3.80-5.20) Mil/uL Hgb (12.0-16.0) g/dL Hct (34.0-47.0) % MCV (81.0-99.0) fl MCH (27.0-31.0) pg MCHC (33.0-37.0) g/dL RDW (11.5-14.5) % Plt Count (130-400) K/uL pCO2 54 H (35-45) mm/Hg pO2 124 H (80-100) mm/Hg HCO3 31.7 H (21-28) mmol/L ABG pH 7.41 (7.35-7.45) ABG Total CO2 35.9 H (22-28) mmol/L ABG O2 Saturation 100.8 H (95-98) % ABG O2 Content 10.4 L (15-23) ML/dL ABG Base Excess 8.6 H (-2.0-3.0) mmol/L ABG Hemoglobin 7.4 L (11.7-17.4) g/dL ABG Carboxyhemoglobin 2.2 H (0.5-1.5) % POC ABG HHb (Measured) -0.8 L (0.0-5.0) % ABG Methemoglobin 1.1 (0.0-3.0) % ABG O2 Capacity 10.3 L (16-24) mL/dL Rakan Test Yes A-a O2 Difference 94.0 mm/Hg Hgb O2 Saturation 97.5 (95.0-98.0) % Vent Mode Prvc/ac Mechanical Rate 14 FiO2 40.0 % Tidal Volume 300 PEEP 5 Sodium (132-148) mmol/l Potassium (3.6-5.0) MMOL/L Chloride (98-107) mmol/L Carbon Dioxide (22-30) mmol/L Anion Gap (10-20) BUN (7-17) mg/dl Creatinine (0.7-1.2) mg/dL Est GFR ( Amer) Est GFR (Non-Af Amer) POC Glucose (mg/dL) 109 120 H (65-110) mg/dL Random Glucose (65-105) mg/dL Calcium (8.4-10.2) mg/dL 01/10/17 01/10/17 01/10/17 Range/Units 12:13 10:13 08:06 WBC (4.8-10.8) K/uL RBC (3.80-5.20) Mil/uL Hgb (12.0-16.0) g/dL Hct (34.0-47.0) % MCV (81.0-99.0) fl MCH (27.0-31.0) pg MCHC (33.0-37.0) g/dL RDW (11.5-14.5) % Plt Count (130-400) K/uL pCO2 (35-45) mm/Hg pO2 (80-100) mm/Hg HCO3 (21-28) mmol/L ABG pH (7.35-7.45) ABG Total CO2 (22-28) mmol/L ABG O2 Saturation (95-98) % ABG O2 Content (15-23) ML/dL ABG Base Excess (-2.0-3.0) mmol/L ABG Hemoglobin (11.7-17.4) g/dL ABG Carboxyhemoglobin (0.5-1.5) % POC ABG HHb (Measured) (0.0-5.0) % ABG Methemoglobin (0.0-3.0) % ABG O2 Capacity (16-24) mL/dL Rakan Test A-a O2 Difference mm/Hg Hgb O2 Saturation (95.0-98.0) % Vent Mode Mechanical Rate FiO2 % Tidal Volume PEEP Sodium (132-148) mmol/l Potassium (3.6-5.0) MMOL/L Chloride (98-107) mmol/L Carbon Dioxide (22-30) mmol/L Anion Gap (10-20) BUN (7-17) mg/dl Creatinine (0.7-1.2) mg/dL Est GFR ( Amer) Est GFR (Non-Af Amer) POC Glucose (mg/dL) 153 H 159 H 149 H (65-110) mg/dL Random Glucose (65-105) mg/dL Calcium (8.4-10.2) mg/dL Laboratory Results - last 24 hr 01/10/17 01/10/17 01/10/17 08:06 10:13 12:13 WBC RBC Hgb Hct MCV MCH MCHC RDW Plt Count pCO2 pO2 HCO3 ABG pH ABG Total CO2 ABG O2 Saturation ABG O2 Content ABG Base Excess ABG Hemoglobin ABG Carboxyhemoglobin POC ABG HHb (Measured) ABG Methemoglobin ABG O2 Capacity Rakan Test A-a O2 Difference Hgb O2 Saturation Vent Mode Mechanical Rate FiO2 Tidal Volume PEEP Sodium Potassium Chloride Carbon Dioxide Anion Gap BUN Creatinine Est GFR ( Amer) Est GFR (Non-Af Amer) POC Glucose (mg/dL) 149 H 159 H 153 H Random Glucose Calcium 01/10/17 01/10/17 01/11/17 15:25 22:27 05:08 WBC RBC Hgb Hct MCV MCH MCHC RDW Plt Count pCO2 54 H pO2 124 H HCO3 31.7 H ABG pH 7.41 ABG Total CO2 35.9 H ABG O2 Saturation 100.8 H ABG O2 Content 10.4 L ABG Base Excess 8.6 H ABG Hemoglobin 7.4 L ABG Carboxyhemoglobin 2.2 H POC ABG HHb (Measured) -0.8 L ABG Methemoglobin 1.1 ABG O2 Capacity 10.3 L Rakan Test Yes A-a O2 Difference 94.0 Hgb O2 Saturation 97.5 Vent Mode Prvc/ac Mechanical Rate 14 FiO2 40.0 Tidal Volume 300 PEEP 5 Sodium Potassium Chloride Carbon Dioxide Anion Gap BUN Creatinine Est GFR ( Amer) Est GFR (Non-Af Amer) POC Glucose (mg/dL) 120 H 109 Random Glucose Calcium 01/11/17 01/11/17 01/11/17 05:30 05:30 06:05 WBC 7.4 D RBC 2.41 L Hgb 7.1 L Hct 22.1 L MCV 91.7 MCH 29.5 MCHC 32.2 L RDW 20.0 H Plt Count 169 pCO2 pO2 HCO3 ABG pH ABG Total CO2 ABG O2 Saturation ABG O2 Content ABG Base Excess ABG Hemoglobin ABG Carboxyhemoglobin POC ABG HHb (Measured) ABG Methemoglobin ABG O2 Capacity Rakan Test A-a O2 Difference Hgb O2 Saturation Vent Mode Mechanical Rate FiO2 Tidal Volume PEEP Sodium 148 Potassium 3.3 L Chloride 107 Carbon Dioxide 31 H Anion Gap 13 BUN 55 H Creatinine 1.1 Est GFR ( Amer) 59 Est GFR (Non-Af Amer) 49 POC Glucose (mg/dL) 125 H Random Glucose 119 H Calcium 8.1 L Fingerstick Blood Sugar Results: 109 Assessment/Plan - Assessment and Plan (Free Text) Assessment: A/P Respiratory failure, pneumonia, h/o CHF, anemia, A Fib, KARMA, elevated LFTs - Ventilatory support - Weaning as tolerated - pulmonary toilets - Continue meds Critical care 35 min
--- NOTE | 2017-01-11 10:33 | RAD ---
HISTORY: REEVALUATE ETT COMPARISON: 01/10/2017 FINDINGS: LUNGS: There is mild interval improvement in left perihilar infiltrate from prior study. There may be some slight increase in right lower lung field alveolar density and edema. Right mid and upper lung field density is unchanged. Endotracheal tube is stable in position. Heart is enlarged. Vasculature is unchanged. PLEURA: Small effusions suspected. No pneumothorax. CARDIOVASCULAR: Heart is unchanged. OSSEOUS STRUCTURES: No significant abnormalities. VISUALIZED UPPER ABDOMEN: Normal. OTHER FINDINGS: None. IMPRESSION: Mild interval improvement in aeration in the left perihilar region. There is however some slight increase in alveolar edema or infiltrate in the right lower lung field.
--- NOTE | 2017-01-11 11:17 | CARD ---
APPROVED REPORT EKG Measurement Heart [id number] <Conclusion> Probable atrial fibrillation Left axis deviation Right bundle branch block Anterior infarct, age undetermined Abnormal ECG baseline artefact is present
[2017-01-11 12:54] LABS: HEMATOCRIT 22.1 % (34.0-47.0); MEAN CELL VOLUME 91.1 fl (81.0-99.0); MEAN CORPUSCULAR HEMOGLOBIN 29.4 pg (27.0-31.0); MEAN CORPUSCULAR HGB CONC 32.3 g/dL (33.0-37.0); RED CELL DISTRIBUTION WIDTH 20.7 % (11.5-14.5); WHITE BLOOD COUNT 7.5 K/uL (4.8-10.8)
[2017-01-11 13:03] LABS: CALCIUM 8.2 mg/dL (8.4-10.2); POTASSIUM 3.2 MMOL/L (3.6-5.0)
[2017-01-11] MEDS: Sodium Chloride 0.45% 1,000 ML IV SCH (13:11)
[2017-01-11] MEDS ORDERED: Potassium Chloride 20 mEq/15 ml LIQ UD PEG ONE (13:32)
--- NOTE | 2017-01-11 14:21 | CP.PCM.CON ---
History of Present Illness - History of Present Illness History of Present Illness: Called to evaluate this patient Acute Resp Failure 2/2 Pna CHF, Cardiac arrest after being found with agonal breathing. Intubated and brought to ICU for further management. PMHx, COPD, CHF. NKDA, Fam Hx NonCont. ROS: Unable to obtain. O/ VSS Afeb Head neg adeno pos rudy Heart RRR, ns1s2, Pos M Lungs Scattered Rhonchi and Crackles at bases R > L No, C,C,E. Neuro : NF, Opens eyes. Does not localize. Labs see below. a/p Acute Resp Failure. COPD HCAP / tracheobronchitis. CHF. Cardiac arrest. Cont MV. Would try PSV but only for 20 minutes given size of ETT 6.5. Cont IV abx. Monitor WBC#, temp curve, and panculture. Monitor ABG's. Maintain negative balance. Optimize cardiac status. Sputum analysis. CE's and EKG's. Cardiology consultation. Cont YAHAIRA Q 6 Hours. PUT and DVT Px. 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 Tx you for this consult. Past Patient History - Infectious Disease Hx of Infectious Diseases: None - Tetanus Immunizations Tetanus Immunization: Unknown - Past Medical History & Family History Past Medical History?: Yes - Past Social History Smoking Status: unknown - CARDIAC Hx Atrial Fibrillation: Yes Hx Cardia Arrhythmia: Yes Hx Congestive Heart Failure: Yes Hx Hypercholesterolemia: Yes Hx Hypertension: Yes - PULMONARY Hx Asthma: No Hx Chronic Obstructive Pulmonary Disease (COPD): No Hx Emphysema: Yes - NEUROLOGICAL Hx Dementia: Yes - HEENT Hx HEENT Problems: Yes Hx Cataracts: Yes (both eyes) - RENAL Hx Chronic Kidney Disease: No - ENDOCRINE/METABOLIC Hx Endocrine Disorders: No - HEMATOLOGICAL/ONCOLOGICAL Hx Anemia: Yes - INTEGUMENTARY Hx Dermatological Problems: No - MUSCULOSKELETAL/RHEUMATOLOGICAL Hx Musculoskeletal Disorders: Yes Hx Falls: No (unknown) Hx Unsteady Gait: Yes - GASTROINTESTINAL Hx Gastrointestinal Disorders: Yes Other/Comment: patient is very anorectic. >with PEG - GENITOURINARY/GYNECOLOGICAL Hx Genitourinary Disorders: No - PSYCHIATRIC Hx Psychophysiologic Disorder: No Hx Substance Use: (unknown) - SURGICAL HISTORY Hx Surgeries: Yes Hx Cataract Extraction: Yes (2013) Hx Eye Surgery: Yes - ANESTHESIA Hx Anesthesia: Yes Hx Anesthesia Reactions: No Hx Malignant Hyperthermia: No Meds Allergies/Adverse Reactions: Allergies Allergy/AdvReac Type Severity Reaction Status Date / Time No Known Allergies Allergy Verified 12/16/16 15:11 - Medications Medications: Current Medications Acetaminophen (Tylenol 650mg/20.3ml Solution Ud) 650 mg PO Q6 PRN PRN Reason: fever Last Admin: 01/10/17 09:00 Dose: 650 mg Famotidine (Pepcid) 20 mg IVP Q12 [facility] Last Admin: 01/11/17 09:22 Dose: 20 mg Piperacillin Sod/Tazobactam (Sod 2.25 gm/ Sodium Chloride) 100 mls @ 100 mls/ hr IVPB Q6 [facility] Last Admin: 01/11/17 09:18 Dose: 100 mls/hr Sodium Chloride (Sodium Chloride 0.45%) 1,000 mls @ 75 mls/hr IV .[id number] [facility] Stop: 01/11/17 16:30 Last Admin: 01/11/17 13:11 Dose: 75 mls/hr Insulin Human Regular (Humulin R) 0 units SC ACCU-CHECK [facility] PRN Reason: Protocol Last Admin: 01/11/17 12:09 Dose: Not Given Results - Vital Signs Recent Vital Signs: Last Vital Signs Temp 98.2 F 01/11/17 12:00 Pulse 78 01/11/17 12:00 Resp 36 H 01/11/17 12:00 BP 105/59 L 01/11/17 12:00 Pulse Ox 100 01/11/17 12:00 - Labs Result Diagrams: 01/11/17 12:30 01/11/17 12:30 Labs: Laboratory Results - last 24 hr 01/10/17 01/10/17 01/11/17 15:25 22:27 05:08 WBC RBC Hgb Hct MCV MCH MCHC RDW Plt Count pCO2 54 H pO2 124 H HCO3 31.7 H ABG pH 7.41 ABG Total CO2 35.9 H ABG O2 Saturation 100.8 H ABG O2 Content 10.4 L ABG Base Excess 8.6 H ABG Hemoglobin 7.4 L ABG Carboxyhemoglobin 2.2 H POC ABG HHb (Measured) -0.8 L ABG Methemoglobin 1.1 ABG O2 Capacity 10.3 L Rakan Test Yes A-a O2 Difference 94.0 Hgb O2 Saturation 97.5 Vent Mode Prvc/ac Mechanical Rate 14 FiO2 40.0 Tidal Volume 300 PEEP 5 Sodium Potassium Chloride Carbon Dioxide Anion Gap BUN Creatinine Est GFR ( Amer) Est GFR (Non-Af Amer) POC Glucose (mg/dL) 120 H 109 Random Glucose Calcium 01/11/17 01/11/17 01/11/17 05:30 05:30 06:05 WBC 7.4 D RBC 2.41 L Hgb 7.1 L Hct 22.1 L MCV 91.7 MCH 29.5 MCHC 32.2 L RDW 20.0 H Plt Count 169 pCO2 pO2 HCO3 ABG pH ABG Total CO2 ABG O2 Saturation ABG O2 Content ABG Base Excess ABG Hemoglobin ABG Carboxyhemoglobin POC ABG HHb (Measured) ABG Methemoglobin ABG O2 Capacity Rakan Test A-a O2 Difference Hgb O2 Saturation Vent Mode Mechanical Rate FiO2 Tidal Volume PEEP Sodium 148 Potassium 3.3 L Chloride 107 Carbon Dioxide 31 H Anion Gap 13 BUN 55 H Creatinine 1.1 Est GFR ( Amer) 59 Est GFR (Non-Af Amer) 49 POC Glucose (mg/dL) 125 H Random Glucose 119 H Calcium 8.1 L 01/11/17 01/11/17 01/11/17 11:19 12:30 12:30 WBC 7.5 RBC 2.43 L Hgb 7.2 L Hct 22.1 L MCV 91.1 MCH 29.4 MCHC 32.3 L RDW 20.7 H Plt Count 178 pCO2 pO2 HCO3 ABG pH ABG Total CO2 ABG O2 Saturation ABG O2 Content ABG Base Excess ABG Hemoglobin ABG Carboxyhemoglobin POC ABG HHb (Measured) ABG Methemoglobin ABG O2 Capacity Rakan Test A-a O2 Difference Hgb O2 Saturation Vent Mode Mechanical Rate FiO2 Tidal Volume PEEP Sodium 147 Potassium 3.2 L Chloride 106 Carbon Dioxide 31 H Anion Gap 13 BUN 50 H Creatinine 1.3 H Est GFR ( Amer) 49 Est GFR (Non-Af Amer) 40 POC Glucose (mg/dL) 134 H Random Glucose 135 H Calcium 8.2 L
--- NOTE | 2017-01-11 15:19 | CP.PCM.PN ---
Subjective - Date & Time of Evaluation Date of Evaluation: 01/11/17 Time of Evaluation: 15:16 - Subjective Subjective: Follow up Nephrology Consultation Note Assessment: critical Acute Kidney Injury (N17.9) likely due to acute tubular necrosis, renal hypoperfusion due to hypercapnic respi failure, cardiac arrest Hyperkalemia, lactic acidosis Hypokalemia, hypernatremia Dementia, CHF, A fib Plan No acute need for renal replacement therapy at this time. renal funciton stable Hypertension control with meds as ordered. Patient not on ACEI/ARB due to recent KARMA Monitor Input/Output, daily weights and renal function with basic metabolic panel supplement electrolytes can continue with 0.45% saline Dose meds/antibiotics for reduced GFR. Avoid fleets enema/magnesium based laxatives. Avoid nephrotoxins/NSAIDs/ iodinated contrast (unless needed emergently) Glycemic control Further work up for as per primary team Thanks for allowing me to participate in care of your patient. Will follow patient with you. Please call if any Qs Dr Anuj Talley Office: [phone] Subjective: Noted events overnight. Patients intubated, unable to provide ROS Physical Examination: General Appearance: Comfortable, in no acute respiratory distress, co- operative. Vitals reviewed and noted as below Lungs: Normal respiratory rate/effort. Breath sounds bilateral equal and clear. intubated Heart: Normal rate. s1s2 normal. No rub or gallop. Extremities: no edema. Neurological: Patient is awake Skin: Warm and dry. Normal turgor. No rash. Palpitation: Normal elasticity for age Abdomen: Abdomen is soft. Bowel sounds +. There is no abdominal tenderness, no guarding/rigidity or organomegaly : kidney or bladder not palpable Labs/imaging reviewed. Past medical history, past surgical history, family history, social history, allergy reviewed Objective - Vital Signs/Intake and Output Vital Signs (last 24 hours): Temp Pulse Resp BP Pulse Ox 98.2 F 76 14 133/88 100 01/11/17 12:00 01/11/17 14:00 01/11/17 14:00 01/11/17 14:00 01/11/17 14:00 Intake and Output: 01/11/17 01/11/17 06:59 18:59 Intake Total 1610 585 Output Total 300 Balance 1310 585 - Medications Medications: Current Medications Acetaminophen (Tylenol 650mg/20.3ml Solution Ud) 650 mg PO Q6 PRN PRN Reason: fever Last Admin: 01/10/17 09:00 Dose: 650 mg Famotidine (Pepcid) 20 mg IVP Q12 [facility] Last Admin: 01/11/17 09:22 Dose: 20 mg Piperacillin Sod/Tazobactam (Sod 2.25 gm/ Sodium Chloride) 100 mls @ 100 mls/ hr IVPB Q6 [facility] Last Admin: 01/11/17 09:18 Dose: 100 mls/hr Sodium Chloride (Sodium Chloride 0.45%) 1,000 mls @ 75 mls/hr IV .[id number] [facility] Stop: 01/11/17 16:30 Last Admin: 01/11/17 13:11 Dose: 75 mls/hr Insulin Human Regular (Humulin R) 0 units SC ACCU-CHECK [facility] PRN Reason: Protocol Last Admin: 01/11/17 12:09 Dose: Not Given - Labs Labs: 01/11/17 12:30 01/11/17 12:30 PT 11.8 Seconds (9.8-13.1) 01/10/17 05:30 INR 1.1 (0.9-1.2) 01/10/17 05:30 APTT 30.3 Seconds (25.6-37.1) 01/10/17 05:30
--- NOTE | 2017-01-11 23:05 | CP.PCM.PN ---
Subjective - Date & Time of Evaluation Date of Evaluation: 01/11/17 Time of Evaluation: 10:00 - Subjective Subjective: patient is stable Remains intubated. Has no fever Noted low Hgb Noted elevated potassium Objective - Vital Signs/Intake and Output Vital Signs (last 24 hours): Temp Pulse Resp BP Pulse Ox 98.8 F 84 15 112/61 99 01/11/17 20:00 01/11/17 18:00 01/11/17 18:00 01/11/17 18:00 01/11/17 18:00 Intake and Output: 01/11/17 01/12/17 18:59 06:59 Intake Total 1230 330 Output Total 350 50 Balance 880 280 - Medications Medications: Current Medications Acetaminophen (Tylenol 650mg/20.3ml Solution Ud) 650 mg PO Q6 PRN PRN Reason: fever Last Admin: 01/10/17 09:00 Dose: 650 mg Famotidine (Pepcid) 20 mg IVP Q12 [facility] Last Admin: 01/11/17 21:47 Dose: 20 mg Piperacillin Sod/Tazobactam (Sod 2.25 gm/ Sodium Chloride) 100 mls @ 100 mls/ hr IVPB Q6 [facility] Last Admin: 01/11/17 21:48 Dose: 100 mls/hr Insulin Human Regular (Humulin R) 0 units SC ACCU-CHECK [facility] PRN Reason: Protocol Last Admin: 01/11/17 22:10 Dose: Not Given - Labs Labs: 01/11/17 12:30 01/11/17 12:30 PT 11.8 Seconds (9.8-13.1) 01/10/17 05:30 INR 1.1 (0.9-1.2) 01/10/17 05:30 APTT 30.3 Seconds (25.6-37.1) 01/10/17 05:30 - Eye Exam Eye Exam: Normal appearance - Respiratory Exam Respiratory Exam: Rales - Cardiovascular Exam Cardiovascular Exam: Irregular Rhythm - GI/Abdominal Exam GI & Abdominal Exam: Normal Bowel Sounds - Neurological Exam Neurological Exam: Altered Assessment and Plan (1) Pneumonia Status: Acute (2) Respiratory failure Status: Acute (3) Cardiac arrest Status: Acute (4) Anemia Status: Chronic (5) Atrial fibrillation Status: Chronic (6) COPD (chronic obstructive pulmonary disease) Status: Chronic - Assessment and Plan (Free Text) Plan: Continue meds bloo dtransfusion cont Iv antibiotics suction secretions cont vent
[2017-01-12 05:17] LABS: HEMATOCRIT 20.9 % (34.0-47.0); MEAN CELL VOLUME 91.5 fl (81.0-99.0); MEAN CORPUSCULAR HGB CONC 32.8 g/dL (33.0-37.0); RED CELL DISTRIBUTION WIDTH 20.4 % (11.5-14.5); WHITE BLOOD COUNT 7.6 K/uL (4.8-10.8)
[2017-01-12 05:22] LABS: ABG ALLEN TEST YES; ABG MECHANICAL RATE 14; ARTERIAL BLOOD GAS HCO3 31.2 mmol/L (21-28); ARTERIAL BLOOD GAS MODE A/C; ARTERIAL BLOOD GAS O2 CAPACITY 10.5 mL/dL (16-24); ARTERIAL BLOOD GAS O2 CONTENT 10.5 ML/dL (15-23); ARTERIAL BLOOD GAS PH 7.41 (7.35-7.45); ARTERIAL BLOOD GAS PO2 90 mm/Hg (80-100); ARTERIAL BLOOD HGB O2 SAT 96.8 % (95.0-98.0); ATERIAL BLOOD GAS PEEP 5; CARBOXYHEMOGLOBIN 2.2 % (0.5-1.5); HHB -0.2 % (0.0-5.0); METHEMOGLOBIN 1.2 % (0.0-3.0)
[2017-01-12 05:29] LABS: CALCIUM 8.4 mg/dL (8.4-10.2)
[2017-01-12] MEDS: Insulin Regular 100 units/ml SC SCH ×4 (07:03→22:36)
--- NOTE | 2017-01-12 08:31 | CON ---
INITIAL NEPHROLOGY CONSULTATION DATE: 01/10/2017 REASON FOR CONSULTATION: Acute kidney injury and hyperkalemia. Patient does not provide a chief complaint. Chief complaint unable to obtain because of her intubation status. HISTORY OF PRESENT ILLNESS: The patient is a 71-year-old female with history of CHF and other history as mentioned. She was referred because of respiratory failure. Patient was found to be unresponsive in the resting home. Resuscitation was done and patient regained her pulses, but because of her agonal breathing, patient was intubated in the emergency room, found to have pneumonia, also KARMA, hyperkalemia and lactic acidosis. Patient was transferred to ICU for further management. Renal consult because of KARMA and hyperkalemia. Overnight events were noted. REVIEW OF SYSTSEMS: Unable to obtain from the patient because she is intubated. Other history as mentioned. FAMILY HISTORY: Unable to obtain. PHYSICAL EXAMINATION: GENERAL: Patient is an elderly female, thin built, not in acute distress. VITAL SIGNS: Afebrile. Pulse is 94, blood pressure 129/88. Saturation well maintained. NEUROLOGIC: Patient is alert , awake, follows commands. EYES: Bilateral pupils are equal, reactive. Conjunctivae are normal. No icterus or pallor. ENT: Patient is orally intubated. No thrush or rash. NECK: Supple. No lymphadenopathy. No bruit. No thyromegaly. CARDIOVASCULAR: S1, S2 normal. Intermittent extra beats are heard. No rub or gallop. RESPIRATORY: Bilateral vesicular breath sounds. Decreased air entry at the bases. Also, has some rales at the right base. No wheezing. ABDOMEN: Soft, nontender, no organomegaly could be appreciated. GENITOURINARY: Kidney and bladder not palpable. Patient has a Atkins catheter. EXTREMITIES: No edema. SKIN: No rash or ulcerations. Turgor is normal. LYMPHATIC: No lymphadenopathy in neck. HEMATOLOGY: No active bleeding. PSYCHIATRIC: Unable to assess. GENITOURINARY: Kidney and bladder not palpable. LABORATORY DATA: Workup, her labs were reviewed, which shows white blood cell count 4.8, hemoglobin 7.6, platelet count is 199. Blood gas shows pH of 7.36, pCO2 of 59, lactic acid of 2.3. Sodium is 149; potassium is 4.5; creatinine is 1.3, which has been stable; potassium has improved; bicarb is 32; lactic acid 2.7. Troponin 0.2, albumin is 2.6. UA had shown 100 protein with moderate blood, moderate bacteria. Digoxin level 1.2. Cultures were sent. Chest x-ray shows pneumonia. Head CT scan shows age-related changes. ASSESSMENT: 1. Overall condition is critical. 2. Acute hypercapnic respiratory failure, cardiac arrest. 3. Pneumonia. 4. Acute kidney injury, likely due to renal hypoperfusion due to cardiac arrest. 5. Hyperkalemia due to cardiac resuscitation, acute kidney injury and lactic acidosis. 6. Mild hypernatremia, history of congestive heart failure. 7. History of dementia, emphysema, hypertension, hyperlipidemia, atrial fibrillation. RECOMMENDATIONS: No acute need for dialysis at this time. Renal function is stable. Potassium is improved. Continue with fluid resuscitation. We will change to half normal saline considering rise in serum sodium. Dose meds for reduced GFR. Avoid nephrotoxin, avoid Fleet enemas, avoid magnesium-based laxative. May consider renal sonogram if renal function does not improve, but otherwise she is stable from renal perspective. All questions were answered. Thank you for the consultation. Discussed with the ICU team. Anuj Talley MD
--- NOTE | 2017-01-12 08:36 | CP.PCM.PN ---
Subjective - Date & Time of Evaluation Date of Evaluation: 01/12/17 Time of Evaluation: 08:34 - Subjective Subjective: No new changes reported Vital sign noted still on vent. Objective - Vital Signs/Intake and Output Vital Signs (last 24 hours): Temp Pulse Resp BP Pulse Ox 98.5 F 77 15 122/80 100 01/12/17 08:00 01/12/17 08:00 01/12/17 08:00 01/12/17 08:00 01/12/17 08:00 Intake and Output: 01/12/17 01/12/17 06:59 18:59 Intake Total 1705 Output Total 300 Balance 1405 - Medications Medications: Current Medications Acetaminophen (Tylenol 650mg/20.3ml Solution Ud) 650 mg PO Q6 PRN PRN Reason: fever Last Admin: 01/10/17 09:00 Dose: 650 mg Famotidine (Pepcid) 20 mg IVP Q12 [facility] Last Admin: 01/11/17 21:47 Dose: 20 mg Piperacillin Sod/Tazobactam (Sod 2.25 gm/ Sodium Chloride) 100 mls @ 100 mls/ hr IVPB Q6 [facility] Last Admin: 01/12/17 04:06 Dose: 100 mls/hr Insulin Human Regular (Humulin R) 0 units SC ACCU-CHECK [facility] PRN Reason: Protocol Last Admin: 01/12/17 07:03 Dose: Not Given - Labs Labs: 01/12/17 04:20 01/12/17 04:20 PT 11.8 Seconds (9.8-13.1) 01/10/17 05:30 INR 1.1 (0.9-1.2) 01/10/17 05:30 APTT 30.3 Seconds (25.6-37.1) 01/10/17 05:30 - Constitutional Appears: No Acute Distress - ENT Exam ENT Exam: Mucous Membranes Moist - Respiratory Exam Respiratory Exam: absent: Chest Wall Tenderness - Cardiovascular Exam Cardiovascular Exam: absent: JVD, Rubs - GI/Abdominal Exam GI & Abdominal Exam: Normal Bowel Sounds - Extremities Exam Extremities Exam: absent: Calf Tenderness - Back Exam Back Exam: absent: CVA tenderness (L), CVA tenderness (R) - Neurological Exam Neurological Exam: Altered Assessment and Plan (1) Respiratory failure Status: Acute (2) Acute renal insufficiency Assessment & Plan: Patient appeared to be recovering from acute renal failure/acute kidney injury Kidney function continued to improve serum creatinine coming down And the rest of the assessment as follow Acute Kidney Injury (N17.9) likely due to acute tubular necrosis, renal hypoperfusion due to hypercapnic respi failure, cardiac arrest Hyperkalemia, lactic acidosis Hypokalemia, hypernatremia Dementia, CHF, A fib Patient has severe anemia hemoglobin 6.9 suggested blood transfusion. As per ICU team Status: Acute
--- NOTE | 2017-01-12 10:57 | RAD ---
HISTORY: intubated reevaaluate COMPARISON: 01/11/2017 at 5:04 a.m. FINDINGS: The endotracheal tube terminates 3.5 cm proximal to the collin. LUNGS: There is interval improved aeration in both lungs with residual moderate to severe pulmonary venous congestion. There is persistent airspace disease in the right upper lobe and left retrocardiac opacity. PLEURA: Suspect small pleural effusions, no pneumothorax apparent. CARDIOVASCULAR: There is persistent mild cardiomegaly. OSSEOUS STRUCTURES: No significant abnormalities. VISUALIZED UPPER ABDOMEN: Normal. OTHER FINDINGS: None. IMPRESSION: Interval improved aeration in both lungs with persistent severe pulmonary venous congestion. Airspace disease in the right upper lobe could represent atelectasis or pneumonia. Persistent left retrocardiac opacity which may represent atelectasis or pneumonia. Small pleural effusions. Follow-up is advised.
--- NOTE | 2017-01-12 11:51 | CP.CCUPN ---
CCU Subjective - Physician Review Events Since Last Encounter (Free Text): 01/12/17 16:21 The patient was Seen/interviewed and examined by me at the bedside during ICU round, Medical records reviewed and Management issues were discussed and formulated with the house staff. Events reviewed Patient awake, oriented, follow commands. Orally intubated, PRVC 93838/40% PEEP-5 Off sedation Comfortable, no distress. Did not tolerate CPAP trial with PS of 10 but doing better on PS 15, then decreased to 10 Adequate saturation, and tidal volume Minimal Resp secretions Afebrile. Last 24H I&O 2935/650 AM Labs with improved renal function 50/1.347/1.2 and H/H DROP 7.2/226.9/20 CXR showed improved lung aeration with persistent pulmonary edema. Received 1 unit packed RBC, will give 20 mg IV Lasix CXR: 01/12/2017 10:52:16 IMPRESSION: Interval improved aeration in both lungs with persistent severe pulmonary venous congestion. Airspace disease in the right upper lobe could represent atelectasis or pneumonia. Persistent left retrocardiac opacity which may represent atelectasis or pneumonia. Small pleural effusions. CCU Objective - Vital Signs / Intake & Output Vital Signs (Last 4 hours): Vital Signs Temp Pulse Resp BP Pulse Ox 01/12/17 10:00 82 16 125/68 100 01/12/17 08:00 98.5 F 77 15 122/80 100 Intake and Output (Last 8hrs): Intake & Output 01/11/17 01/12/17 01/12/17 22:59 06:59 14:59 Intake Total 900 1120 170 Output Total 450 200 Balance 450 920 170 Weight 100 lb Intake: IV 300 600 70 Intake, Piggyback 200 100 Tube Feeding 200 320 Free Water Flush 200 200 Output: Urine 450 200 Urethral (Atkins) 450 200 - Physical Exam Head: Positive for: Normocephalic Pupils: Positive for: PERRL Extroacular Muscles: Positive for: EOMI Conjunctiva: Positive for: Normal. Negative for: Icteric Mouth: Positive for: Moist Mucous Membranes Neck: Positive for: JVD. Negative for: Meningeal Signs Respiratory/Chest: Positive for: Decreased Breath Sounds, Rales. Negative for: Accessory Muscle Use, Wheezes Cardiovascular: Positive for: Irregular Rhythm, Bradycardic. Negative for: Murmurs, Rub Abdomen: Positive for: Normal Bowel Sounds, Other (PEG intact). Negative for: Tenderness, Distention Lower Extremity: Positive for: NORMAL PULSES. Negative for: CALF TENDERNESS, Cyanosis Neurological: Positive for: Other (not following any commands) Skin: Positive for: Warm. Negative for: Rashes - Medications Active Medications: Active Medications Generic Name Dose Route Start Last Admin Trade Name Freq PRN Reason Stop Dose Admin Acetaminophen 650 mg 01/10/17 08:40 01/10/17 09:00 Tylenol 650mg/20.3ml Solution Ud PO 650 mg Q6 PRN Administration fever Famotidine 20 mg 01/09/17 21:00 01/12/17 09:56 Pepcid IVP 20 mg Q12 [facility] Administration Piperacillin Sod/Tazobactam 100 mls @ 100 mls/hr 01/09/17 22:00 01/12/17 10: 32 Sod 2.25 gm/ Sodium Chloride IVPB 100 mls/hr Q6 [facility] Administration Insulin Human Regular 0 units 01/09/17 23:00 01/12/17 07:03 Humulin R SC Not Given ACCU-CHECK [facility] Protocol - Patient Studies Lab Studies: Microbiology Studies 01/09/17 09:40 MRSA Culture (Admit) - Final Nose MRSA NOT DETECTED 01/09/17 16:20 Blood Culture - Preliminary Blood-Venous NO GROWTH AFTER 48 HOURS Lab Studies 01/12/17 01/12/17 01/12/17 Range/Units 11:02 05:19 04:24 WBC (4.8-10.8) K/uL RBC (3.80-5.20) Mil/uL Hgb (12.0-16.0) g/dL Hct (34.0-47.0) % MCV (81.0-99.0) fl MCH (27.0-31.0) pg MCHC (33.0-37.0) g/dL RDW (11.5-14.5) % Plt Count (130-400) K/uL pCO2 53 H (35-45) mm/Hg pO2 90 (80-100) mm/Hg HCO3 31.2 H (21-28) mmol/L ABG pH 7.41 (7.35-7.45) ABG Total CO2 35.2 H (22-28) mmol/L ABG O2 Saturation 100.2 H (95-98) % ABG O2 Content 10.5 L (15-23) ML/dL ABG Base Excess 8.0 H (-2.0-3.0) mmol/L ABG Hemoglobin 7.6 L (11.7-17.4) g/dL ABG Carboxyhemoglobin 2.2 H (0.5-1.5) % POC ABG HHb (Measured) -0.2 L (0.0-5.0) % ABG Methemoglobin 1.2 (0.0-3.0) % ABG O2 Capacity 10.5 L (16-24) mL/dL Rakan Test Yes A-a O2 Difference 129.0 mm/Hg Hgb O2 Saturation 96.8 (95.0-98.0) % Vent Mode A/c Mechanical Rate 14 FiO2 40.0 % Tidal Volume 300 PEEP 5 Sodium (132-148) mmol/l Potassium (3.6-5.0) MMOL/L Chloride (98-107) mmol/L Carbon Dioxide (22-30) mmol/L Anion Gap (10-20) BUN (7-17) mg/dl Creatinine (0.7-1.2) mg/dL Est GFR ( Amer) Est GFR (Non-Af Amer) POC Glucose (mg/dL) 198 H 128 H (65-110) mg/dL Random Glucose (65-105) mg/dL Calcium (8.4-10.2) mg/dL Blood Type Antibody Screen Crossmatch IS Only BBK History Checked 01/12/17 01/12/17 01/11/17 Range/Units 04:20 04:20 21:56 WBC 7.6 (4.8-10.8) K/uL RBC 2.28 L (3.80-5.20) Mil/uL Hgb 6.9 L (12.0-16.0) g/dL Hct 20.9 L (34.0-47.0) % MCV 91.5 (81.0-99.0) fl MCH 30.0 (27.0-31.0) pg MCHC 32.8 L (33.0-37.0) g/dL RDW 20.4 H (11.5-14.5) % Plt Count 172 (130-400) K/uL pCO2 (35-45) mm/Hg pO2 (80-100) mm/Hg HCO3 (21-28) mmol/L ABG pH (7.35-7.45) ABG Total CO2 (22-28) mmol/L ABG O2 Saturation (95-98) % ABG O2 Content (15-23) ML/dL ABG Base Excess (-2.0-3.0) mmol/L ABG Hemoglobin (11.7-17.4) g/dL ABG Carboxyhemoglobin (0.5-1.5) % POC ABG HHb (Measured) (0.0-5.0) % ABG Methemoglobin (0.0-3.0) % ABG O2 Capacity (16-24) mL/dL Rakan Test A-a O2 Difference mm/Hg Hgb O2 Saturation (95.0-98.0) % Vent Mode Mechanical Rate FiO2 % Tidal Volume PEEP Sodium 146 (132-148) mmol/l Potassium 4.0 (3.6-5.0) MMOL/L Chloride 107 (98-107) mmol/L Carbon Dioxide 31 H (22-30) mmol/L Anion Gap 12 (10-20) BUN 47 H (7-17) mg/dl Creatinine 1.2 (0.7-1.2) mg/dL Est GFR ( Amer) 53 Est GFR (Non-Af Amer) 44 POC Glucose (mg/dL) 127 H (65-110) mg/dL Random Glucose 122 H (65-105) mg/dL Calcium 8.4 (8.4-10.2) mg/dL Blood Type Antibody Screen Crossmatch IS Only BBK History Checked 01/11/17 01/11/17 01/11/17 Range/Units 16:07 12:30 12:30 WBC 7.5 (4.8-10.8) K/uL RBC 2.43 L (3.80-5.20) Mil/uL Hgb 7.2 L (12.0-16.0) g/dL Hct 22.1 L (34.0-47.0) % MCV 91.1 (81.0-99.0) fl MCH 29.4 (27.0-31.0) pg MCHC 32.3 L (33.0-37.0) g/dL RDW 20.7 H (11.5-14.5) % Plt Count 178 (130-400) K/uL pCO2 (35-45) mm/Hg pO2 (80-100) mm/Hg HCO3 (21-28) mmol/L ABG pH (7.35-7.45) ABG Total CO2 (22-28) mmol/L ABG O2 Saturation (95-98) % ABG O2 Content (15-23) ML/dL ABG Base Excess (-2.0-3.0) mmol/L ABG Hemoglobin (11.7-17.4) g/dL ABG Carboxyhemoglobin (0.5-1.5) % POC ABG HHb (Measured) (0.0-5.0) % ABG Methemoglobin (0.0-3.0) % ABG O2 Capacity (16-24) mL/dL Rakan Test A-a O2 Difference mm/Hg Hgb O2 Saturation (95.0-98.0) % Vent Mode Mechanical Rate FiO2 % Tidal Volume PEEP Sodium 147 (132-148) mmol/l Potassium 3.2 L (3.6-5.0) MMOL/L Chloride 106 (98-107) mmol/L Carbon Dioxide 31 H (22-30) mmol/L Anion Gap 13 (10-20) BUN 50 H (7-17) mg/dl Creatinine 1.3 H (0.7-1.2) mg/dL Est GFR ( Amer) 49 Est GFR (Non-Af Amer) 40 POC Glucose (mg/dL) 177 H (65-110) mg/dL Random Glucose 135 H (65-105) mg/dL Calcium 8.2 L (8.4-10.2) mg/dL Blood Type Antibody Screen Crossmatch IS Only BBK History Checked 01/10/17 01/09/17 Range/Units 00:09 16:20 WBC (4.8-10.8) K/uL RBC (3.80-5.20) Mil/uL Hgb (12.0-16.0) g/dL Hct (34.0-47.0) % MCV (81.0-99.0) fl MCH (27.0-31.0) pg MCHC (33.0-37.0) g/dL RDW (11.5-14.5) % Plt Count (130-400) K/uL pCO2 (35-45) mm/Hg pO2 (80-100) mm/Hg HCO3 (21-28) mmol/L ABG pH (7.35-7.45) ABG Total CO2 (22-28) mmol/L ABG O2 Saturation (95-98) % ABG O2 Content (15-23) ML/dL ABG Base Excess (-2.0-3.0) mmol/L ABG Hemoglobin (11.7-17.4) g/dL ABG Carboxyhemoglobin (0.5-1.5) % POC ABG HHb (Measured) (0.0-5.0) % ABG Methemoglobin (0.0-3.0) % ABG O2 Capacity (16-24) mL/dL Rakan Test A-a O2 Difference mm/Hg Hgb O2 Saturation (95.0-98.0) % Vent Mode Mechanical Rate FiO2 % Tidal Volume PEEP Sodium (132-148) mmol/l Potassium (3.6-5.0) MMOL/L Chloride (98-107) mmol/L Carbon Dioxide (22-30) mmol/L Anion Gap (10-20) BUN (7-17) mg/dl Creatinine (0.7-1.2) mg/dL Est GFR ( Amer) Est GFR (Non-Af Amer) POC Glucose (mg/dL) 367 H (65-110) mg/dL Random Glucose (65-105) mg/dL Calcium (8.4-10.2) mg/dL Blood Type O POSITIVE Antibody Screen Negative Crossmatch IS Only See Detail BBK History Checked Patient has bt Laboratory Results - last 24 hr 01/09/17 01/10/17 01/11/17 16:20 00:09 12:30 WBC RBC Hgb Hct MCV MCH MCHC RDW Plt Count pCO2 pO2 HCO3 ABG pH ABG Total CO2 ABG O2 Saturation ABG O2 Content ABG Base Excess ABG Hemoglobin ABG Carboxyhemoglobin POC ABG HHb (Measured) ABG Methemoglobin ABG O2 Capacity Rakan Test A-a O2 Difference Hgb O2 Saturation Vent Mode Mechanical Rate FiO2 Tidal Volume PEEP Sodium 147 Potassium 3.2 L Chloride 106 Carbon Dioxide 31 H Anion Gap 13 BUN 50 H Creatinine 1.3 H Est GFR ( Amer) 49 Est GFR (Non-Af Amer) 40 POC Glucose (mg/dL) 367 H Random Glucose 135 H Calcium 8.2 L Blood Type O POSITIVE Antibody Screen Negative Crossmatch IS Only See Detail BBK History Checked Patient has bt 01/11/17 01/11/17 01/11/17 12:30 16:07 21:56 WBC 7.5 RBC 2.43 L Hgb 7.2 L Hct 22.1 L MCV 91.1 MCH 29.4 MCHC 32.3 L RDW 20.7 H Plt Count 178 pCO2 pO2 HCO3 ABG pH ABG Total CO2 ABG O2 Saturation ABG O2 Content ABG Base Excess ABG Hemoglobin ABG Carboxyhemoglobin POC ABG HHb (Measured) ABG Methemoglobin ABG O2 Capacity Rakan Test A-a O2 Difference Hgb O2 Saturation Vent Mode Mechanical Rate FiO2 Tidal Volume PEEP Sodium Potassium Chloride Carbon Dioxide Anion Gap BUN Creatinine Est GFR ( Amer) Est GFR (Non-Af Amer) POC Glucose (mg/dL) 177 H 127 H Random Glucose Calcium Blood Type Antibody Screen Crossmatch IS Only BBK History Checked 01/12/17 01/12/17 01/12/17 04:20 04:20 04:24 WBC 7.6 RBC 2.28 L Hgb 6.9 L Hct 20.9 L MCV 91.5 MCH 30.0 MCHC 32.8 L RDW 20.4 H Plt Count 172 pCO2 pO2 HCO3 ABG pH ABG Total CO2 ABG O2 Saturation ABG O2 Content ABG Base Excess ABG Hemoglobin ABG Carboxyhemoglobin POC ABG HHb (Measured) ABG Methemoglobin ABG O2 Capacity Rakan Test A-a O2 Difference Hgb O2 Saturation Vent Mode Mechanical Rate FiO2 Tidal Volume PEEP Sodium 146 Potassium 4.0 Chloride 107 Carbon Dioxide 31 H Anion Gap 12 BUN 47 H Creatinine 1.2 Est GFR ( Amer) 53 Est GFR (Non-Af Amer) 44 POC Glucose (mg/dL) 128 H Random Glucose 122 H Calcium 8.4 Blood Type Antibody Screen Crossmatch IS Only BBK History Checked 01/12/17 01/12/17 05:19 11:02 WBC RBC Hgb Hct MCV MCH MCHC RDW Plt Count pCO2 53 H pO2 90 HCO3 31.2 H ABG pH 7.41 ABG Total CO2 35.2 H ABG O2 Saturation 100.2 H ABG O2 Content 10.5 L ABG Base Excess 8.0 H ABG Hemoglobin 7.6 L ABG Carboxyhemoglobin 2.2 H POC ABG HHb (Measured) -0.2 L ABG Methemoglobin 1.2 ABG O2 Capacity 10.5 L Rakan Test Yes A-a O2 Difference 129.0 Hgb O2 Saturation 96.8 Vent Mode A/c Mechanical Rate 14 FiO2 40.0 Tidal Volume 300 PEEP 5 Sodium Potassium Chloride Carbon Dioxide Anion Gap BUN Creatinine Est GFR ( Amer) Est GFR (Non-Af Amer) POC Glucose (mg/dL) 198 H Random Glucose Calcium Blood Type Antibody Screen Crossmatch IS Only BBK History Checked Fingerstick Blood Sugar Results: 127 Review of Systems - Review of Systems Systems not reviewed;Unavailable: Intubated Critical Care Progress Note - Ventilator Checklist Head of Bed 30 Degrees: Yes Daily Sedation Vacation: Yes Daily Assessment of Readiness to Wean: Yes Daily Spontaneous Breathing Trial: Yes PUD Prophalyxis: Yes DVT Prophylaxis: Yes Oral Care with Chlorhexidine Gluconate {CHG}: Yes - Extremities/Vascular Does the Patient have a Central Venous Catheter?: Yes Does the Patient need a Central Venous Catheter?: Yes Does the Patient have a Atkins Catheter?: Yes Does the Patient need a Atkins Catheter?: Yes Assessment/Plan (1) Acute respiratory failure with hypercapnia Current Visit: Yes Status: Acute Comment: Acute respiratory failure secondary to HCAP, CHF and COPD Vent weaning in progress Daily CAT/SBT Continue nebulizer treatment Continue diuretics as needed Maintain aspiration precautions GI/DVT PPX (2) HCAP (healthcare-associated pneumonia) Current Visit: Yes Status: Acute Comment: IV Vanco and Piperacillin Sod/Tazobactam (3) Cardiac arrest Current Visit: Yes Status: Acute Comment: improved mental status, Patient awake, oriented, follow commands. Hyperkalemia on admission with K 6.8, normalized (4) Anemia Current Visit: No Status: Chronic Comment: No Evidanc of active bleeding, I U Packed RBC transfused today (5) Atrial fibrillation Current Visit: No Status: Chronic (6) COPD (chronic obstructive pulmonary disease) Current Visit: No Status: Chronic Comment: Stable, no weezing, Continue BD nebs q 6h prn (7) Acute diastolic (congestive) heart failure Current Visit: No Status: Resolved (8) Acute renal failure (ARF) Current Visit: No Status: Resolved
[2017-01-13 05:18] LABS: HEMATOCRIT 22.5 % (34.0-47.0); MEAN CELL VOLUME 91.2 fl (81.0-99.0); MEAN CORPUSCULAR HEMOGLOBIN 30.1 pg (27.0-31.0); MEAN CORPUSCULAR HGB CONC 33.1 g/dL (33.0-37.0); RED CELL DISTRIBUTION WIDTH 19.8 % (11.5-14.5); WHITE BLOOD COUNT 6.7 K/uL (4.8-10.8)
[2017-01-13 05:21] LABS: CALCIUM 8.3 mg/dL (8.4-10.2); POTASSIUM 4.4 MMOL/L (3.6-5.0)
[2017-01-13 05:30] LABS: ABG ALLEN TEST YES; ABG MECHANICAL RATE 14; ARTERIAL BLOOD GAS HCO3 30.9 mmol/L (21-28); ARTERIAL BLOOD GAS MODE A/C; ARTERIAL BLOOD GAS O2 CAPACITY 11.8 mL/dL (16-24); ARTERIAL BLOOD GAS O2 CONTENT 11.8 ML/dL (15-23); ARTERIAL BLOOD GAS PH 7.37 (7.35-7.45); ARTERIAL BLOOD GAS PO2 82 mm/Hg (80-100); ARTERIAL BLOOD HGB O2 SAT 95.6 % (95.0-98.0); ATERIAL BLOOD GAS PEEP 5; CARBOXYHEMOGLOBIN 2.3 % (0.5-1.5); HHB 0.4 % (0.0-5.0); METHEMOGLOBIN 1.6 % (0.0-3.0)
[2017-01-13] MEDS: Insulin Regular 100 units/ml SC SCH ×4 (07:00→22:00)
--- NOTE | 2017-01-13 07:57 | CP.PCM.PN ---
Subjective - Date & Time of Evaluation Date of Evaluation: 01/13/17 Time of Evaluation: 07:54 - Subjective Subjective: Patient remained on respirator Opening her eyes Following some command Objective - Vital Signs/Intake and Output Vital Signs (last 24 hours): Temp Pulse Resp BP Pulse Ox 98.4 F 104 H 14 123/80 100 01/13/17 00:00 01/13/17 06:00 01/13/17 06:00 01/13/17 06:00 01/13/17 06:00 Intake and Output: 01/13/17 01/13/17 06:59 18:59 Intake Total 1180 Output Total 320 Balance 860 - Medications Medications: Current Medications Acetaminophen (Tylenol 650mg/20.3ml Solution Ud) 650 mg PO Q6 PRN PRN Reason: fever Last Admin: 01/10/17 09:00 Dose: 650 mg Famotidine (Pepcid) 20 mg IVP Q12 [facility] Last Admin: 01/12/17 20:59 Dose: 20 mg Piperacillin Sod/Tazobactam (Sod 2.25 gm/ Sodium Chloride) 100 mls @ 100 mls/ hr IVPB Q6 [facility] Last Admin: 01/13/17 04:30 Dose: 100 mls/hr Insulin Human Regular (Humulin R) 0 units SC ACCU-CHECK [facility]INA PRN Reason: Protocol Last Admin: 01/12/17 22:36 Dose: Not Given - Labs Labs: 01/13/17 04:15 01/13/17 04:15 PT 11.8 Seconds (9.8-13.1) 01/10/17 05:30 INR 1.1 (0.9-1.2) 01/10/17 05:30 APTT 30.3 Seconds (25.6-37.1) 01/10/17 05:30 - Constitutional Appears: No Acute Distress - ENT Exam ENT Exam: Mucous Membranes Moist - Respiratory Exam Respiratory Exam: NORMAL BREATHING PATTERN. absent: Chest Wall Tenderness - Cardiovascular Exam Cardiovascular Exam: absent: JVD, Rubs - GI/Abdominal Exam GI & Abdominal Exam: Normal Bowel Sounds. absent: Guarding - Extremities Exam Extremities Exam: absent: Calf Tenderness - Back Exam Back Exam: absent: CVA tenderness (L), CVA tenderness (R) - Neurological Exam Neurological Exam: Altered Assessment and Plan (1) Respiratory failure Status: Acute (2) Acute renal insufficiency Assessment & Plan: Kidney function improving serum creatinine back to normal Serum electrolytes noted to be okay serum sodium improving except CO2 still elevated somewhat Patient recovering from acute kidney injury most likely she'll remain ventilator dependent From renal standpoint of view improving continue monitoring Status: Acute
--- NOTE | 2017-01-13 08:58 | RAD ---
HISTORY: ETT placement COMPARISON: January 12, 2017. FINDINGS: LUNGS: Stable multifocal infiltrates PLEURA: No significant interval change compared to the prior examination(s). CARDIOVASCULAR: No radiographic findings to suggest acute or significant cardiovascular disease. OSSEOUS STRUCTURES: No significant abnormalities. VISUALIZED UPPER ABDOMEN: Normal. OTHER FINDINGS: Satisfactory position of endotracheal tube. IMPRESSION: No significant interval change compared to the prior examination(s).
--- NOTE | 2017-01-13 09:13 | CP.PCM.PN ---
Subjective - Date & Time of Evaluation Date of Evaluation: 01/13/17 Time of Evaluation: 08:50 - Subjective Subjective: Still remains intubated on vent support Attempts to lower pressure support yesterday, unsuccessful, will be attemted today Sinus rhythm with APCs++ BP 126/70 mm Hg No evidence of volume over load Renal status conderably improved Stable from cardiac point of view. Objective - Vital Signs/Intake and Output Vital Signs (last 24 hours): Temp Pulse Resp BP Pulse Ox 96.7 F L 112 H 34 H 131/84 92 L 01/13/17 08:00 01/13/17 08:00 01/13/17 08:00 01/13/17 08:00 01/13/17 08:00 Intake and Output: 01/13/17 01/13/17 06:59 18:59 Intake Total 1180 Output Total 320 Balance 860 - Medications Medications: Current Medications Acetaminophen (Tylenol 650mg/20.3ml Solution Ud) 650 mg PO Q6 PRN PRN Reason: fever Last Admin: 01/10/17 09:00 Dose: 650 mg Famotidine (Pepcid) 20 mg IVP Q12 [facility] Last Admin: 01/13/17 08:43 Dose: 20 mg Piperacillin Sod/Tazobactam (Sod 2.25 gm/ Sodium Chloride) 100 mls @ 100 mls/ hr IVPB Q6 [facility] Last Admin: 01/13/17 04:30 Dose: 100 mls/hr Insulin Human Regular (Humulin R) 0 units SC ACCU-CHECK [facility] PRN Reason: Protocol Last Admin: 01/12/17 22:36 Dose: Not Given - Labs Labs: 01/13/17 04:15 01/13/17 04:15 PT 11.8 Seconds (9.8-13.1) 01/10/17 05:30 INR 1.1 (0.9-1.2) 01/10/17 05:30 APTT 30.3 Seconds (25.6-37.1) 01/10/17 05:30
--- NOTE | 2017-01-13 09:42 | CP.CCUPN ---
<Perry Angelo - Last Filed: 01/13/17 09:38> CCU Subjective - Physician Review Events Since Last Encounter (Free Text): 01/13/17 09:38 Patient this morning. No acute distress, responsive to name call, opens eyes, and follows commands. Patient remains intubated with ventilation support. Patient s/p 1 PRBC yesterday. CPAP attempted yesterday with pressure support of 15 but did not tolerate lowered to 10. Patient had 2 bowel movements overnight. Atkins drained 720 mL clear urine overnight. Critical Care Time Spent (in minutes): 35 CCU Objective - Vital Signs / Intake & Output Vital Signs (Last 4 hours): Vital Signs Temp Pulse Resp BP Pulse Ox 01/13/17 08:00 96.7 F L 112 H 34 H 131/84 92 L 01/13/17 06:00 104 H 14 123/80 100 Intake and Output (Last 8hrs): Intake & Output 01/12/17 01/13/17 01/13/17 22:59 06:59 14:59 Intake Total 420 920 Output Total 920 Balance -500 920 Intake: IV 0 Intake, Piggyback 200 Oral 180 Tube Feeding 320 340 Free Water Flush 100 200 Output: Urine 920 Urethral (Atkins) 920 Other: # Voids Urethral (Atkins) 400 # Bowel Movements 1 - Physical Exam Head: Positive for: Normocephalic Pupils: Positive for: PERRL Extroacular Muscles: Positive for: EOMI Conjunctiva: Positive for: Normal. Negative for: Icteric Mouth: Positive for: Moist Mucous Membranes Neck: Positive for: JVD. Negative for: Meningeal Signs Respiratory/Chest: Positive for: Decreased Breath Sounds, Rales. Negative for: Accessory Muscle Use, Wheezes Cardiovascular: Positive for: Irregular Rhythm, Bradycardic. Negative for: Murmurs, Rub Abdomen: Positive for: Normal Bowel Sounds, Other (PEG intact). Negative for: Tenderness, Distention Lower Extremity: Positive for: NORMAL PULSES. Negative for: CALF TENDERNESS, Cyanosis Neurological: Positive for: Other (follows commands) Skin: Positive for: Warm. Negative for: Rashes Psychiatric: Positive for: Alert - Medications Active Medications: Active Medications Generic Name Dose Route Start Last Admin Trade Name Freq PRN Reason Stop Dose Admin Acetaminophen 650 mg 01/10/17 08:40 01/10/17 09:00 Tylenol 650mg/20.3ml Solution Ud PO 650 mg Q6 PRN Administration fever Famotidine 20 mg 01/09/17 21:00 01/13/17 08:43 Pepcid IVP 20 mg Q12 L[facility] Administration Piperacillin Sod/Tazobactam 100 mls @ 100 mls/hr 01/09/17 22:00 01/13/17 04: 30 Sod 2.25 gm/ Sodium Chloride IVPB 100 mls/hr Q6 LINA Administration Insulin Human Regular 0 units 01/09/17 23:00 01/12/17 22:36 Humulin R SC Not Given ACCU-CHECK [facility] Protocol - Patient Studies Lab Studies: Microbiology Studies 01/10/17 09:40 Gram Stain - Final Trachasp Sputum Culture - Final Staphylococcus Aureus 01/09/17 16:20 Blood Culture - Preliminary Blood-Venous NO GROWTH AFTER 3 DAYS Lab Studies 01/13/17 01/13/17 01/13/17 Range/Units 05:25 04:52 04:15 WBC (4.8-10.8) K/uL RBC (3.80-5.20) Mil/uL Hgb (12.0-16.0) g/dL Hct (34.0-47.0) % MCV (81.0-99.0) fl MCH (27.0-31.0) pg MCHC (33.0-37.0) g/dL RDW (11.5-14.5) % Plt Count (130-400) K/uL pCO2 59 H (35-45) mm/Hg pO2 82 (80-100) mm/Hg HCO3 30.9 H (21-28) mmol/L ABG pH 7.37 (7.35-7.45) ABG Total CO2 35.9 H (22-28) mmol/L ABG O2 Saturation 99.6 H (95-98) % ABG O2 Content 11.8 L (15-23) ML/dL ABG Base Excess 7.6 H (-2.0-3.0) mmol/L ABG Hemoglobin 8.7 L (11.7-17.4) g/dL ABG Carboxyhemoglobin 2.3 H (0.5-1.5) % POC ABG HHb (Measured) 0.4 (0.0-5.0) % ABG Methemoglobin 1.6 (0.0-3.0) % ABG O2 Capacity 11.8 L (16-24) mL/dL Rakan Test Yes A-a O2 Difference 129.0 mm/Hg Hgb O2 Saturation 95.6 (95.0-98.0) % Vent Mode A/c Mechanical Rate 14 FiO2 40.0 % Tidal Volume 300 PEEP 5 Sodium 145 (132-148) mmol/l Potassium 4.4 (3.6-5.0) MMOL/L Chloride 106 (98-107) mmol/L Carbon Dioxide 32 H (22-30) mmol/L Anion Gap 11 (10-20) BUN 42 H (7-17) mg/dl Creatinine 1.1 (0.7-1.2) mg/dL Est GFR ( Amer) 59 Est GFR (Non-Af Amer) 49 POC Glucose (mg/dL) 163 H (65-110) mg/dL Random Glucose 139 H (65-105) mg/dL Calcium 8.3 L (8.4-10.2) mg/dL Blood Type Antibody Screen Crossmatch IS Only BBK History Checked 01/13/17 01/12/17 01/12/17 Range/Units 04:15 21:35 16:38 WBC 6.7 (4.8-10.8) K/uL RBC 2.46 L (3.80-5.20) Mil/uL Hgb 7.4 L (12.0-16.0) g/dL Hct 22.5 L (34.0-47.0) % MCV 91.2 (81.0-99.0) fl MCH 30.1 (27.0-31.0) pg MCHC 33.1 (33.0-37.0) g/dL RDW 19.8 H (11.5-14.5) % Plt Count 173 (130-400) K/uL pCO2 (35-45) mm/Hg pO2 (80-100) mm/Hg HCO3 (21-28) mmol/L ABG pH (7.35-7.45) ABG Total CO2 (22-28) mmol/L ABG O2 Saturation (95-98) % ABG O2 Content (15-23) ML/dL ABG Base Excess (-2.0-3.0) mmol/L ABG Hemoglobin (11.7-17.4) g/dL ABG Carboxyhemoglobin (0.5-1.5) % POC ABG HHb (Measured) (0.0-5.0) % ABG Methemoglobin (0.0-3.0) % ABG O2 Capacity (16-24) mL/dL Rakan Test A-a O2 Difference mm/Hg Hgb O2 Saturation (95.0-98.0) % Vent Mode Mechanical Rate FiO2 % Tidal Volume PEEP Sodium (132-148) mmol/l Potassium (3.6-5.0) MMOL/L Chloride (98-107) mmol/L Carbon Dioxide (22-30) mmol/L Anion Gap (10-20) BUN (7-17) mg/dl Creatinine (0.7-1.2) mg/dL Est GFR ( Amer) Est GFR (Non-Af Amer) POC Glucose (mg/dL) 172 H 216 H (65-110) mg/dL Random Glucose (65-105) mg/dL Calcium (8.4-10.2) mg/dL Blood Type Antibody Screen Crossmatch IS Only BBK History Checked 01/12/17 01/09/17 Range/Units 11:02 16:20 WBC (4.8-10.8) K/uL RBC (3.80-5.20) Mil/uL Hgb (12.0-16.0) g/dL Hct (34.0-47.0) % MCV (81.0-99.0) fl MCH (27.0-31.0) pg MCHC (33.0-37.0) g/dL RDW (11.5-14.5) % Plt Count (130-400) K/uL pCO2 (35-45) mm/Hg pO2 (80-100) mm/Hg HCO3 (21-28) mmol/L ABG pH (7.35-7.45) ABG Total CO2 (22-28) mmol/L ABG O2 Saturation (95-98) % ABG O2 Content (15-23) ML/dL ABG Base Excess (-2.0-3.0) mmol/L ABG Hemoglobin (11.7-17.4) g/dL ABG Carboxyhemoglobin (0.5-1.5) % POC ABG HHb (Measured) (0.0-5.0) % ABG Methemoglobin (0.0-3.0) % ABG O2 Capacity (16-24) mL/dL Rakan Test A-a O2 Difference mm/Hg Hgb O2 Saturation (95.0-98.0) % Vent Mode Mechanical Rate FiO2 % Tidal Volume PEEP Sodium (132-148) mmol/l Potassium (3.6-5.0) MMOL/L Chloride (98-107) mmol/L Carbon Dioxide (22-30) mmol/L Anion Gap (10-20) BUN (7-17) mg/dl Creatinine (0.7-1.2) mg/dL Est GFR ( Amer) Est GFR (Non-Af Amer) POC Glucose (mg/dL) 198 H (65-110) mg/dL Random Glucose (65-105) mg/dL Calcium (8.4-10.2) mg/dL Blood Type O POSITIVE Antibody Screen Negative Crossmatch IS Only See Detail BBK History Checked Patient has bt Laboratory Results - last 24 hr 01/09/17 01/12/17 01/12/17 16:20 11:02 16:38 WBC RBC Hgb Hct MCV MCH MCHC RDW Plt Count pCO2 pO2 HCO3 ABG pH ABG Total CO2 ABG O2 Saturation ABG O2 Content ABG Base Excess ABG Hemoglobin ABG Carboxyhemoglobin POC ABG HHb (Measured) ABG Methemoglobin ABG O2 Capacity Rakan Test A-a O2 Difference Hgb O2 Saturation Vent Mode Mechanical Rate FiO2 Tidal Volume PEEP Sodium Potassium Chloride Carbon Dioxide Anion Gap BUN Creatinine Est GFR ( Amer) Est GFR (Non-Af Amer) POC Glucose (mg/dL) 198 H 216 H Random Glucose Calcium Blood Type O POSITIVE Antibody Screen Negative Crossmatch IS Only See Detail BBK History Checked Patient has bt 01/12/17 01/13/17 01/13/17 21:35 04:15 04:15 WBC 6.7 RBC 2.46 L Hgb 7.4 L Hct 22.5 L MCV 91.2 MCH 30.1 MCHC 33.1 RDW 19.8 H Plt Count 173 pCO2 pO2 HCO3 ABG pH ABG Total CO2 ABG O2 Saturation ABG O2 Content ABG Base Excess ABG Hemoglobin ABG Carboxyhemoglobin POC ABG HHb (Measured) ABG Methemoglobin ABG O2 Capacity Rakan Test A-a O2 Difference Hgb O2 Saturation Vent Mode Mechanical Rate FiO2 Tidal Volume PEEP Sodium 145 Potassium 4.4 Chloride 106 Carbon Dioxide 32 H Anion Gap 11 BUN 42 H Creatinine 1.1 Est GFR ( Amer) 59 Est GFR (Non-Af Amer) 49 POC Glucose (mg/dL) 172 H Random Glucose 139 H Calcium 8.3 L Blood Type Antibody Screen Crossmatch IS Only BBK History Checked 01/13/17 01/13/17 04:52 05:25 WBC RBC Hgb Hct MCV MCH MCHC RDW Plt Count pCO2 59 H pO2 82 HCO3 30.9 H ABG pH 7.37 ABG Total CO2 35.9 H ABG O2 Saturation 99.6 H ABG O2 Content 11.8 L ABG Base Excess 7.6 H ABG Hemoglobin 8.7 L ABG Carboxyhemoglobin 2.3 H POC ABG HHb (Measured) 0.4 ABG Methemoglobin 1.6 ABG O2 Capacity 11.8 L Rakan Test Yes A-a O2 Difference 129.0 Hgb O2 Saturation 95.6 Vent Mode A/c Mechanical Rate 14 FiO2 40.0 Tidal Volume 300 PEEP 5 Sodium Potassium Chloride Carbon Dioxide Anion Gap BUN Creatinine Est GFR ( Amer) Est GFR (Non-Af Amer) POC Glucose (mg/dL) 163 H Random Glucose Calcium Blood Type Antibody Screen Crossmatch IS Only BBK History Checked Fingerstick Blood Sugar Results: 163 Review of Systems - Review of Systems Systems not reviewed;Unavailable: Intubated Assessment/Plan - Assessment and Plan (Free Text) Assessment: 71 y/o woman w/ pmh of PEG (placed 2 days prior to admission), bed bound, dementia, CHF EF 30%, AFib, HTN, and HLD in ICU for respiratory failure. Plan: Acute respiratory failure with hypercapnia - on vent, CPAP with increase to PS 15 - ABG: pCO2 59, pO2 82, HCO3 30.9, ph 7.37 - CXR in AM shows ET still in place - on IVF 1/2 NS 75 mL/hr - receiving tube feeds - on sliding scale insulin - Maintain aspiration precautions HCAP (healthcare-associated pneumonia) - sputum culture grew Staph aureus susceptible to all antibiotics except penicillin - c/w IV Piperacillin Sod/Tazobactam 2.25 g Q6h - c/w tylenol for fever prn Cardiac arrest - ACLS initiated in [facility], ROSC achieved priro to EMS arrival, intubated for agonal breathing - improved mental status, Patient awake, oriented, follow commands. - K+ normalized Anemia - anemic since admission, Hb 6.9 yesterday - s/p 1 PRBC yesterday - No evidence of active bleeding, Hb 7.4 this morning Atrial fibrillation - chronic, home meds xarelto and digoxin held - cardiac monitoring Prophylactic Measures - pepcid 20 mg IVP Q12 - SCDs <Marcel Brown V - Last Filed: 01/13/17 10:21> CCU Subjective - Physician Review Events Since Last Encounter (Free Text): 01/13/17 10:16 patient is seen, examined iat bedside. case discussed in am ICU rounds. events overnite reviewed. Braething trial attempted at PS 10, failed, but tolerated at 15. SBT in progress. Continue vent support as tolerated.S/p cardiac arrest, ? hypoxic injury superimposed on dementia. , but appears to be stable..Agree with plan of care as detailed in resident's note. CCU Objective - Vital Signs / Intake & Output Vital Signs (Last 4 hours): Vital Signs Temp Pulse Resp BP Pulse Ox 01/13/17 08:00 96.7 F L 112 H 34 H 131/84 92 L Intake and Output (Last 8hrs): Intake & Output 01/12/17 01/13/17 01/13/17 22:59 06:59 14:59 Intake Total 420 920 Output Total 920 Balance -500 920 Intake: IV 0 Intake, Piggyback 200 Oral 180 Tube Feeding 320 340 Free Water Flush 100 200 Output: Urine 920 Urethral (Atkins) 920 Other: # Voids Urethral (Atkins) 400 # Bowel Movements 1 - Medications Active Medications: Active Medications Generic Name Dose Route Start Last Admin Trade Name Freq PRN Reason Stop Dose Admin Acetaminophen 650 mg 01/10/17 08:40 01/10/17 09:00 Tylenol 650mg/20.3ml Solution Ud PO 650 mg Q6 PRN Administration fever Famotidine 20 mg 01/09/17 21:00 01/13/17 08:43 Pepcid IVP 20 mg Q12 [facility]INA Administration Piperacillin Sod/Tazobactam 100 mls @ 100 mls/hr 01/09/17 22:00 01/13/17 10: 08 Sod 2.25 gm/ Sodium Chloride IVPB 100 mls/hr Q6 LINA Administration Insulin Human Regular 0 units 01/09/17 23:00 01/12/17 22:36 Humulin R SC Not Given ACCU-CHECK [facility] Protocol - Patient Studies Lab Studies: Microbiology Studies 01/10/17 09:40 Gram Stain - Final Trachasp Sputum Culture - Final Staphylococcus Aureus 01/09/17 16:20 Blood Culture - Preliminary Blood-Venous NO GROWTH AFTER 3 DAYS Lab Studies 01/13/17 01/13/17 01/13/17 Range/Units 05:25 04:52 04:15 WBC (4.8-10.8) K/uL RBC (3.80-5.20) Mil/uL Hgb (12.0-16.0) g/dL Hct (34.0-47.0) % MCV (81.0-99.0) fl MCH (27.0-31.0) pg MCHC (33.0-37.0) g/dL RDW (11.5-14.5) % Plt Count (130-400) K/uL pCO2 59 H (35-45) mm/Hg pO2 82 (80-100) mm/Hg HCO3 30.9 H (21-28) mmol/L ABG pH 7.37 (7.35-7.45) ABG Total CO2 35.9 H (22-28) mmol/L ABG O2 Saturation 99.6 H (95-98) % ABG O2 Content 11.8 L (15-23) ML/dL ABG Base Excess 7.6 H (-2.0-3.0) mmol/L ABG Hemoglobin 8.7 L (11.7-17.4) g/dL ABG Carboxyhemoglobin 2.3 H (0.5-1.5) % POC ABG HHb (Measured) 0.4 (0.0-5.0) % ABG Methemoglobin 1.6 (0.0-3.0) % ABG O2 Capacity 11.8 L (16-24) mL/dL Rakan Test Yes A-a O2 Difference 129.0 mm/Hg Hgb O2 Saturation 95.6 (95.0-98.0) % Vent Mode A/c Mechanical Rate 14 FiO2 40.0 % Tidal Volume 300 PEEP 5 Sodium 145 (132-148) mmol/l Potassium 4.4 (3.6-5.0) MMOL/L Chloride 106 (98-107) mmol/L Carbon Dioxide 32 H (22-30) mmol/L Anion Gap 11 (10-20) BUN 42 H (7-17) mg/dl Creatinine 1.1 (0.7-1.2) mg/dL Est GFR ( Amer) 59 Est GFR (Non-Af Amer) 49 POC Glucose (mg/dL) 163 H (65-110) mg/dL Random Glucose 139 H (65-105) mg/dL Calcium 8.3 L (8.4-10.2) mg/dL Blood Type Antibody Screen Crossmatch IS Only BBK History Checked 01/13/17 01/12/17 01/12/17 Range/Units 04:15 21:35 16:38 WBC 6.7 (4.8-10.8) K/uL RBC 2.46 L (3.80-5.20) Mil/uL Hgb 7.4 L (12.0-16.0) g/dL Hct 22.5 L (34.0-47.0) % MCV 91.2 (81.0-99.0) fl MCH 30.1 (27.0-31.0) pg MCHC 33.1 (33.0-37.0) g/dL RDW 19.8 H (11.5-14.5) % Plt Count 173 (130-400) K/uL pCO2 (35-45) mm/Hg pO2 (80-100) mm/Hg HCO3 (21-28) mmol/L ABG pH (7.35-7.45) ABG Total CO2 (22-28) mmol/L ABG O2 Saturation (95-98) % ABG O2 Content (15-23) ML/dL ABG Base Excess (-2.0-3.0) mmol/L ABG Hemoglobin (11.7-17.4) g/dL ABG Carboxyhemoglobin (0.5-1.5) % POC ABG HHb (Measured) (0.0-5.0) % ABG Methemoglobin (0.0-3.0) % ABG O2 Capacity (16-24) mL/dL Rakan Test A-a O2 Difference mm/Hg Hgb O2 Saturation (95.0-98.0) % Vent Mode Mechanical Rate FiO2 % Tidal Volume PEEP Sodium (132-148) mmol/l Potassium (3.6-5.0) MMOL/L Chloride (98-107) mmol/L Carbon Dioxide (22-30) mmol/L Anion Gap (10-20) BUN (7-17) mg/dl Creatinine (0.7-1.2) mg/dL Est GFR ( Amer) Est GFR (Non-Af Amer) POC Glucose (mg/dL) 172 H 216 H (65-110) mg/dL Random Glucose (65-105) mg/dL Calcium (8.4-10.2) mg/dL Blood Type Antibody Screen Crossmatch IS Only BBK History Checked 01/12/17 01/09/17 Range/Units 11:02 16:20 WBC (4.8-10.8) K/uL RBC (3.80-5.20) Mil/uL Hgb (12.0-16.0) g/dL Hct (34.0-47.0) % MCV (81.0-99.0) fl MCH (27.0-31.0) pg MCHC (33.0-37.0) g/dL RDW (11.5-14.5) % Plt Count (130-400) K/uL pCO2 (35-45) mm/Hg pO2 (80-100) mm/Hg HCO3 (21-28) mmol/L ABG pH (7.35-7.45) ABG Total CO2 (22-28) mmol/L ABG O2 Saturation (95-98) % ABG O2 Content (15-23) ML/dL ABG Base Excess (-2.0-3.0) mmol/L ABG Hemoglobin (11.7-17.4) g/dL ABG Carboxyhemoglobin (0.5-1.5) % POC ABG HHb (Measured) (0.0-5.0) % ABG Methemoglobin (0.0-3.0) % ABG O2 Capacity (16-24) mL/dL Rakan Test A-a O2 Difference mm/Hg Hgb O2 Saturation (95.0-98.0) % Vent Mode Mechanical Rate FiO2 % Tidal Volume PEEP Sodium (132-148) mmol/l Potassium (3.6-5.0) MMOL/L Chloride (98-107) mmol/L Carbon Dioxide (22-30) mmol/L Anion Gap (10-20) BUN (7-17) mg/dl Creatinine (0.7-1.2) mg/dL Est GFR ( Amer) Est GFR (Non-Af Amer) POC Glucose (mg/dL) 198 H (65-110) mg/dL Random Glucose (65-105) mg/dL Calcium (8.4-10.2) mg/dL Blood Type O POSITIVE Antibody Screen Negative Crossmatch IS Only See Detail BBK History Checked Patient has bt Laboratory Results - last 24 hr 01/09/17 01/12/17 01/12/17 16:20 11:02 16:38 WBC RBC Hgb Hct MCV MCH MCHC RDW Plt Count pCO2 pO2 HCO3 ABG pH ABG Total CO2 ABG O2 Saturation ABG O2 Content ABG Base Excess ABG Hemoglobin ABG Carboxyhemoglobin POC ABG HHb (Measured) ABG Methemoglobin ABG O2 Capacity Rakan Test A-a O2 Difference Hgb O2 Saturation Vent Mode Mechanical Rate FiO2 Tidal Volume PEEP Sodium Potassium Chloride Carbon Dioxide Anion Gap BUN Creatinine Est GFR ( Amer) Est GFR (Non-Af Amer) POC Glucose (mg/dL) 198 H 216 H Random Glucose Calcium Blood Type O POSITIVE Antibody Screen Negative Crossmatch IS Only See Detail BBK History Checked Patient has bt 01/12/17 01/13/17 01/13/17 21:35 04:15 04:15 WBC 6.7 RBC 2.46 L Hgb 7.4 L Hct 22.5 L MCV 91.2 MCH 30.1 MCHC 33.1 RDW 19.8 H Plt Count 173 pCO2 pO2 HCO3 ABG pH ABG Total CO2 ABG O2 Saturation ABG O2 Content ABG Base Excess ABG Hemoglobin ABG Carboxyhemoglobin POC ABG HHb (Measured) ABG Methemoglobin ABG O2 Capacity Rakan Test A-a O2 Difference Hgb O2 Saturation Vent Mode Mechanical Rate FiO2 Tidal Volume PEEP Sodium 145 Potassium 4.4 Chloride 106 Carbon Dioxide 32 H Anion Gap 11 BUN 42 H Creatinine 1.1 Est GFR ( Amer) 59 Est GFR (Non-Af Amer) 49 POC Glucose (mg/dL) 172 H Random Glucose 139 H Calcium 8.3 L Blood Type Antibody Screen Crossmatch IS Only BBK History Checked 01/13/17 01/13/17 04:52 05:25 WBC RBC Hgb Hct MCV MCH MCHC RDW Plt Count pCO2 59 H pO2 82 HCO3 30.9 H ABG pH 7.37 ABG Total CO2 35.9 H ABG O2 Saturation 99.6 H ABG O2 Content 11.8 L ABG Base Excess 7.6 H ABG Hemoglobin 8.7 L ABG Carboxyhemoglobin 2.3 H POC ABG HHb (Measured) 0.4 ABG Methemoglobin 1.6 ABG O2 Capacity 11.8 L Rakan Test Yes A-a O2 Difference 129.0 Hgb O2 Saturation 95.6 Vent Mode A/c Mechanical Rate 14 FiO2 40.0 Tidal Volume 300 PEEP 5 Sodium Potassium Chloride Carbon Dioxide Anion Gap BUN Creatinine Est GFR ( Amer) Est GFR (Non-Af Amer) POC Glucose (mg/dL) 163 H Random Glucose Calcium Blood Type Antibody Screen Crossmatch IS Only BBK History Checked
[2017-01-13 16:34] LABS: MAGNESIUM 1.9 MG/DL (1.6-2.3); PHOSPHOROUS 4.2 mg/dl (2.5-4.5)
--- NOTE | 2017-01-13 18:57 | CP.PCM.PN ---
Subjective - Date & Time of Evaluation Date of Evaluation: 01/13/17 Time of Evaluation: 08:00 - Subjective Subjective: Pt seen and examined with Dr. Templeton at bedside. Patient is responsive to verbal stimuli, opens eyes. - Patient remains intubated was unable to tolerate CPAP yesterday. Objective - Vital Signs/Intake and Output Vital Signs (last 24 hours): Temp Pulse Resp BP Pulse Ox 99 F 83 14 108/70 100 01/13/17 16:56 01/13/17 18:27 01/13/17 18:27 01/13/17 18:27 01/13/17 18:27 Intake and Output: 01/13/17 01/13/17 06:59 18:59 Intake Total 1180 820 Output Total 320 800 Balance 860 20 - Medications Medications: Current Medications Acetaminophen (Tylenol 650mg/20.3ml Solution Ud) 650 mg PO Q6 PRN PRN Reason: fever Last Admin: 01/10/17 09:00 Dose: 650 mg Famotidine (Pepcid) 20 mg IVP Q12 [facility] Last Admin: 01/13/17 08:43 Dose: 20 mg Furosemide (Lasix) 40 mg IV DAILY [facility] Last Admin: 01/13/17 16:21 Dose: 40 mg Piperacillin Sod/Tazobactam (Sod 2.25 gm/ Sodium Chloride) 100 mls @ 100 mls/ hr IVPB Q6 [facility] Last Admin: 01/13/17 16:22 Dose: 100 mls/hr Insulin Human Regular (Humulin R) 0 units SC ACCU-CHECK [facility] PRN Reason: Protocol Last Admin: 01/13/17 18:40 Dose: Not Given - Labs Labs: 01/13/17 04:15 01/13/17 04:15 PT 11.8 Seconds (9.8-13.1) 01/10/17 05:30 INR 1.1 (0.9-1.2) 01/10/17 05:30 APTT 30.3 Seconds (25.6-37.1) 01/10/17 05:30 - Head Exam Head Exam: ATRAUMATIC, NORMOCEPHALIC - Eye Exam Eye Exam: Normal appearance Pupil Exam: NORMAL ACCOMODATION - Neck Exam Additional comments: JVD - Respiratory Exam Respiratory Exam: Decreased Breath Sounds, Rales Additional comments: Decreased breath sounds: Rales - Cardiovascular Exam Cardiovascular Exam: Irregular Rhythm - Neurological Exam Additional comments: follows commands Assessment and Plan - Assessment and Plan (Free Text) Assessment: 1) Acute respiratory failure w/ hypercapnia ABG: pCO2 59, pO2 82, HCO3 30.9, ph 7.37 - inubated 2) HCAP - continue with antibiotic treatment 3)Anemia - S/p 1 PRBC yesterday - HB s/p transfusion improved from 09/19 to 7.4
[2017-01-14 05:23] LABS: CALCIUM 8.4 mg/dL (8.4-10.2)
[2017-01-14 05:23] LABS: ABG ALLEN TEST YES; ABG MECHANICAL RATE 14; ARTERIAL BLOOD GAS MODE A/C; ARTERIAL BLOOD GAS O2 CAPACITY 10.5 mL/dL (16-24); ARTERIAL BLOOD GAS O2 CONTENT 10.5 ML/dL (15-23); ARTERIAL BLOOD GAS PH 7.43 (7.35-7.45); ARTERIAL BLOOD GAS PO2 92 mm/Hg (80-100); ARTERIAL BLOOD HGB O2 SAT 95.8 % (95.0-98.0); ATERIAL BLOOD GAS PEEP 5; CARBOXYHEMOGLOBIN 2.4 % (0.5-1.5); HHB -0.1 % (0.0-5.0); METHEMOGLOBIN 1.9 % (0.0-3.0)
[2017-01-14 05:24] LABS: HEMATOCRIT 21.8 % (34.0-47.0); MEAN CELL VOLUME 91.2 fl (81.0-99.0); MEAN CORPUSCULAR HEMOGLOBIN 30.7 pg (27.0-31.0); MEAN CORPUSCULAR HGB CONC 33.7 g/dL (33.0-37.0); RED CELL DISTRIBUTION WIDTH 20.1 % (11.5-14.5); WHITE BLOOD COUNT 7.5 K/uL (4.8-10.8)
[2017-01-14] MEDS: Insulin Regular 100 units/ml SC SCH ×4 (07:45→23:00)
--- NOTE | 2017-01-14 08:48 | CP.CCUPN ---
<Perry Angelo - Last Filed: 01/14/17 13:21> CCU Subjective - Physician Review Events Since Last Encounter (Free Text): 01/14/17 08:26 Patient this morning. No acute distress, denies pain, responsive to name call, opens eyes, and follows commands. Patient remains intubated with ventilation support. Put on CPAP yesterday with pressure support of 15 and then converted to Tbar in afternoon but went into afib. Patient put back on PRVC A/C. Critical Care Time Spent (in minutes): 35 CCU Objective - Vital Signs / Intake & Output Vital Signs (Last 4 hours): Vital Signs Pulse Resp BP Pulse Ox 01/14/17 06:00 68 15 125/67 100 Intake and Output (Last 8hrs): Intake & Output 01/13/17 01/14/17 01/14/17 22:59 06:59 14:59 Intake Total 620 520 Output Total 800 1100 Balance -180 -580 Intake: Intake, Piggyback 100 Oral 80 Tube Feeding 240 320 Free Water Flush 200 200 Output: Urine 800 1100 Urethral (Atkins) 800 1100 Other: # Bowel Movements 1 - Physical Exam Head: Positive for: Normocephalic Pupils: Positive for: PERRL Extroacular Muscles: Positive for: EOMI Conjunctiva: Positive for: Normal. Negative for: Icteric Mouth: Positive for: Moist Mucous Membranes Neck: Positive for: JVD. Negative for: Meningeal Signs Respiratory/Chest: Positive for: Decreased Breath Sounds, Rales. Negative for: Accessory Muscle Use, Wheezes Cardiovascular: Positive for: Irregular Rhythm, Bradycardic. Negative for: Murmurs, Rub Abdomen: Positive for: Normal Bowel Sounds, Other (PEG intact). Negative for: Tenderness, Distention Lower Extremity: Positive for: NORMAL PULSES. Negative for: CALF TENDERNESS, Cyanosis Neurological: Positive for: Other (follows commands) Skin: Positive for: Warm. Negative for: Rashes Psychiatric: Positive for: Alert - Medications Active Medications: Active Medications Generic Name Dose Route Start Last Admin Trade Name Freq PRN Reason Stop Dose Admin Acetaminophen 650 mg 01/10/17 08:40 01/10/17 09:00 Tylenol 650mg/20.3ml Solution Ud PO 650 mg Q6 PRN Administration fever Famotidine 20 mg 01/09/17 21:00 01/13/17 21:40 Pepcid IVP 20 mg Q12 [facility] Administration Furosemide 40 mg 01/13/17 16:00 01/13/17 16:21 Lasix IV 40 mg DAILY [facility] Administration Piperacillin Sod/Tazobactam 100 mls @ 100 mls/hr 01/09/17 22:00 01/14/17 03: 06 Sod 2.25 gm/ Sodium Chloride IVPB 100 mls/hr Q6 [facility] Administration Insulin Human Regular 0 units 01/09/17 23:00 01/14/17 07:45 Humulin R SC Not Given ACCU-CHECK [facility] Protocol - Patient Studies Lab Studies: Microbiology Studies 01/09/17 16:20 Blood Culture - Preliminary Blood-Venous NO GROWTH AFTER 4 DAYS 01/10/17 09:40 Gram Stain - Final Trachasp Sputum Culture - Final Staphylococcus Aureus Lab Studies 01/14/17 01/14/17 01/14/17 Range/Units 05:19 05:06 04:30 WBC (4.8-10.8) K/uL RBC (3.80-5.20) Mil/uL Hgb (12.0-16.0) g/dL Hct (34.0-47.0) % MCV (81.0-99.0) fl MCH (27.0-31.0) pg MCHC (33.0-37.0) g/dL RDW (11.5-14.5) % Plt Count (130-400) K/uL pCO2 56 H (35-45) mm/Hg pO2 92 (80-100) mm/Hg HCO3 34.0 H (21-28) mmol/L ABG pH 7.43 (7.35-7.45) ABG Total CO2 38.9 H (22-28) mmol/L ABG O2 Saturation 100.1 H (95-98) % ABG O2 Content 10.5 L (15-23) ML/dL ABG Base Excess 11.6 H (-2.0-3.0) mmol/L ABG Hemoglobin 7.7 L (11.7-17.4) g/dL ABG Carboxyhemoglobin 2.4 H (0.5-1.5) % POC ABG HHb (Measured) -0.1 L (0.0-5.0) % ABG Methemoglobin 1.9 (0.0-3.0) % ABG O2 Capacity 10.5 L (16-24) mL/dL Rakan Test Yes A-a O2 Difference 123.0 mm/Hg Hgb O2 Saturation 95.8 (95.0-98.0) % Vent Mode A/c Mechanical Rate 14 FiO2 40.0 % Tidal Volume 300 PEEP 5 Sodium 143 (132-148) mmol/l Potassium 4.0 (3.6-5.0) MMOL/L Chloride 103 (98-107) mmol/L Carbon Dioxide 35 H (22-30) mmol/L Anion Gap 9 L (10-20) BUN 36 H (7-17) mg/dl Creatinine 1.1 (0.7-1.2) mg/dL Est GFR ( Amer) 59 Est GFR (Non-Af Amer) 49 POC Glucose (mg/dL) 129 H (65-110) mg/dL Random Glucose 120 H (65-105) mg/dL Hemoglobin A1c (4.2-6.5) % Calcium 8.4 (8.4-10.2) mg/dL Phosphorus (2.5-4.5) mg/dl Magnesium (1.6-2.3) MG/DL 01/14/17 01/13/17 01/13/17 Range/Units 04:30 21:41 16:10 WBC 7.5 (4.8-10.8) K/uL RBC 2.39 L (3.80-5.20) Mil/uL Hgb 7.4 L (12.0-16.0) g/dL Hct 21.8 L (34.0-47.0) % MCV 91.2 (81.0-99.0) fl MCH 30.7 (27.0-31.0) pg MCHC 33.7 (33.0-37.0) g/dL RDW 20.1 H (11.5-14.5) % Plt Count 169 (130-400) K/uL pCO2 (35-45) mm/Hg pO2 (80-100) mm/Hg HCO3 (21-28) mmol/L ABG pH (7.35-7.45) ABG Total CO2 (22-28) mmol/L ABG O2 Saturation (95-98) % ABG O2 Content (15-23) ML/dL ABG Base Excess (-2.0-3.0) mmol/L ABG Hemoglobin (11.7-17.4) g/dL ABG Carboxyhemoglobin (0.5-1.5) % POC ABG HHb (Measured) (0.0-5.0) % ABG Methemoglobin (0.0-3.0) % ABG O2 Capacity (16-24) mL/dL Rakan Test A-a O2 Difference mm/Hg Hgb O2 Saturation (95.0-98.0) % Vent Mode Mechanical Rate FiO2 % Tidal Volume PEEP Sodium (132-148) mmol/l Potassium (3.6-5.0) MMOL/L Chloride (98-107) mmol/L Carbon Dioxide (22-30) mmol/L Anion Gap (10-20) BUN (7-17) mg/dl Creatinine (0.7-1.2) mg/dL Est GFR ( Amer) Est GFR (Non-Af Amer) POC Glucose (mg/dL) 131 H (65-110) mg/dL Random Glucose (65-105) mg/dL Hemoglobin A1c (4.2-6.5) % Calcium (8.4-10.2) mg/dL Phosphorus 4.2 (2.5-4.5) mg/dl Magnesium 1.9 (1.6-2.3) MG/DL 01/13/17 01/13/17 01/13/17 Range/Units 15:55 11:37 04:30 WBC (4.8-10.8) K/uL RBC (3.80-5.20) Mil/uL Hgb (12.0-16.0) g/dL Hct (34.0-47.0) % MCV (81.0-99.0) fl MCH (27.0-31.0) pg MCHC (33.0-37.0) g/dL RDW (11.5-14.5) % Plt Count (130-400) K/uL pCO2 (35-45) mm/Hg pO2 (80-100) mm/Hg HCO3 (21-28) mmol/L ABG pH (7.35-7.45) ABG Total CO2 (22-28) mmol/L ABG O2 Saturation (95-98) % ABG O2 Content (15-23) ML/dL ABG Base Excess (-2.0-3.0) mmol/L ABG Hemoglobin (11.7-17.4) g/dL ABG Carboxyhemoglobin (0.5-1.5) % POC ABG HHb (Measured) (0.0-5.0) % ABG Methemoglobin (0.0-3.0) % ABG O2 Capacity (16-24) mL/dL Rakan Test A-a O2 Difference mm/Hg Hgb O2 Saturation (95.0-98.0) % Vent Mode Mechanical Rate FiO2 % Tidal Volume PEEP Sodium (132-148) mmol/l Potassium (3.6-5.0) MMOL/L Chloride (98-107) mmol/L Carbon Dioxide (22-30) mmol/L Anion Gap (10-20) BUN (7-17) mg/dl Creatinine (0.7-1.2) mg/dL Est GFR ( Amer) Est GFR (Non-Af Amer) POC Glucose (mg/dL) 135 H 114 H (65-110) mg/dL Random Glucose (65-105) mg/dL Hemoglobin A1c 6.9 H (4.2-6.5) % Calcium (8.4-10.2) mg/dL Phosphorus (2.5-4.5) mg/dl Magnesium (1.6-2.3) MG/DL Laboratory Results - last 24 hr 01/13/17 01/13/17 01/13/17 04:30 11:37 15:55 WBC RBC Hgb Hct MCV MCH MCHC RDW Plt Count pCO2 pO2 HCO3 ABG pH ABG Total CO2 ABG O2 Saturation ABG O2 Content ABG Base Excess ABG Hemoglobin ABG Carboxyhemoglobin POC ABG HHb (Measured) ABG Methemoglobin ABG O2 Capacity Rakan Test A-a O2 Difference Hgb O2 Saturation Vent Mode Mechanical Rate FiO2 Tidal Volume PEEP Sodium Potassium Chloride Carbon Dioxide Anion Gap BUN Creatinine Est GFR ( Amer) Est GFR (Non-Af Amer) POC Glucose (mg/dL) 114 H 135 H Random Glucose Hemoglobin A1c 6.9 H Calcium Phosphorus Magnesium 01/13/17 01/13/17 01/14/17 16:10 21:41 04:30 WBC 7.5 RBC 2.39 L Hgb 7.4 L Hct 21.8 L MCV 91.2 MCH 30.7 MCHC 33.7 RDW 20.1 H Plt Count 169 pCO2 pO2 HCO3 ABG pH ABG Total CO2 ABG O2 Saturation ABG O2 Content ABG Base Excess ABG Hemoglobin ABG Carboxyhemoglobin POC ABG HHb (Measured) ABG Methemoglobin ABG O2 Capacity Rakan Test A-a O2 Difference Hgb O2 Saturation Vent Mode Mechanical Rate FiO2 Tidal Volume PEEP Sodium Potassium Chloride Carbon Dioxide Anion Gap BUN Creatinine Est GFR ( Amer) Est GFR (Non-Af Amer) POC Glucose (mg/dL) 131 H Random Glucose Hemoglobin A1c Calcium Phosphorus 4.2 Magnesium 1.9 01/14/17 01/14/17 01/14/17 04:30 05:06 05:19 WBC RBC Hgb Hct MCV MCH MCHC RDW Plt Count pCO2 56 H pO2 92 HCO3 34.0 H ABG pH 7.43 ABG Total CO2 38.9 H ABG O2 Saturation 100.1 H ABG O2 Content 10.5 L ABG Base Excess 11.6 H ABG Hemoglobin 7.7 L ABG Carboxyhemoglobin 2.4 H POC ABG HHb (Measured) -0.1 L ABG Methemoglobin 1.9 ABG O2 Capacity 10.5 L Rakan Test Yes A-a O2 Difference 123.0 Hgb O2 Saturation 95.8 Vent Mode A/c Mechanical Rate 14 FiO2 40.0 Tidal Volume 300 PEEP 5 Sodium 143 Potassium 4.0 Chloride 103 Carbon Dioxide 35 H Anion Gap 9 L BUN 36 H Creatinine 1.1 Est GFR ( Amer) 59 Est GFR (Non-Af Amer) 49 POC Glucose (mg/dL) 129 H Random Glucose 120 H Hemoglobin A1c Calcium 8.4 Phosphorus Magnesium Fingerstick Blood Sugar Results: 129 Review of Systems - Review of Systems Systems not reviewed;Unavailable: Intubated Assessment/Plan - Assessment and Plan (Free Text) Assessment: 71 y/o woman w/ pmh of PEG (placed 2 days prior to admission), bed bound, dementia, CHF EF 30%, AFib, HTN, and HLD in ICU for respiratory failure. Plan: Acute respiratory failure with hypercapnia - on vent, PRVC A/C, rate 14, vol 0.30 - ABG: pCO2 56, pO2 92, HCO3 34.0, ph 7.43 - CXR in AM shows ET still in place, - receiving tube feeds 40mL/hr - on sliding scale insulin - Maintain aspiration precautions - planning to extubate HCAP (healthcare-associated pneumonia) - sputum culture grew Staph aureus susceptible to all antibiotics except penicillin - c/w IV Piperacillin Sod/Tazobactam 2.25 g Q6h day 5 - c/w tylenol for fever prn Cardiac arrest - ACLS initiated in senior living, ROSC achieved priro to EMS arrival, intubated for agonal breathing - improved mental status, Patient awake, oriented, follow commands. - K+ normalized Anemia - anemic since admission, Hb 6.9 01/12/2017 - s/p 1 PRBC 01/12/2017 - No evidence of active bleeding, Hb 7.4 this morning Atrial fibrillation - chronic, home meds xarelto and digoxin held - cardiac monitoring Prophylactic Measures - pepcid 20 mg IVP Q12 - SCDs <Troy Reyes - Last Filed: 01/14/17 13:31> Assessment/Plan - Assessment and Plan (Free Text) Plan: Attestation: Patient seen and examined at the bedside with Resident Dr. Barb Angelo; and I agree with his outline of plans and management documented below as discussed on AM rounds reflecting my review of all applicable clinical data, and participation in the care of the patient throughout the day in ICU; today, January 14, 2017.
--- NOTE | 2017-01-14 11:38 | RAD ---
HISTORY: ETT placement COMPARISON: 01/13/2017. FINDINGS: The endotracheal tube terminates 4 cm proximal to the collin. LUNGS: There is no significant interval change in perihilar airspace disease. There is persistent pulmonary venous congestion. PLEURA: No significant pleural effusion identified, no pneumothorax apparent. CARDIOVASCULAR: There is stable cardiac OSSEOUS STRUCTURES: No significant abnormalities. VISUALIZED UPPER ABDOMEN: Normal. OTHER FINDINGS: None. IMPRESSION: 1. Stable position of endotracheal tube. 2. No change in presumable perihilar pulmonary edema.
[2017-01-14 13:54] LABS: ABG ALLEN TEST YES; ARTERIAL BLOOD GAS HCO3 32.8 mmol/L (21-28); ARTERIAL BLOOD GAS MODE CPAP; ARTERIAL BLOOD GAS PH 7.36 (7.35-7.45); ARTERIAL BLOOD GAS PO2 99 mm/Hg (80-100)
--- NOTE | 2017-01-14 13:59 | CP.PCM.PN ---
Subjective - Date & Time of Evaluation Date of Evaluation: 01/14/17 Time of Evaluation: 13:57 - Subjective Subjective: PAtient seen and examined at bedside in the AM with Dr. Templeton. Patient is seen resting comfortably on ventilator - Patient does respond to verbal command and open eyes. Objective - Vital Signs/Intake and Output Vital Signs (last 24 hours): Temp Pulse Resp BP Pulse Ox 99.5 F 105 H 29 H 84/74 L 100 01/14/17 12:00 01/14/17 12:00 01/14/17 12:00 01/14/17 12:00 01/14/17 12:00 Intake and Output: 01/14/17 01/14/17 06:59 18:59 Intake Total 780 200 Output Total 1100 Balance -320 200 - Medications Medications: Current Medications Acetaminophen (Tylenol 650mg/20.3ml Solution Ud) 650 mg PO Q6 PRN PRN Reason: fever Last Admin: 01/10/17 09:00 Dose: 650 mg Famotidine (Pepcid) 20 mg IVP Q12 [facility] Last Admin: 01/14/17 09:34 Dose: 20 mg Furosemide (Lasix) 40 mg IV DAILY [facility] Last Admin: 01/14/17 09:32 Dose: 40 mg Piperacillin Sod/Tazobactam (Sod 2.25 gm/ Sodium Chloride) 100 mls @ 100 mls/ hr IVPB Q6 [facility] Last Admin: 01/14/17 09:35 Dose: 100 mls/hr Insulin Human Regular (Humulin R) 0 units SC ACCU-CHECK [facility] PRN Reason: Protocol Last Admin: 01/14/17 11:44 Dose: Not Given - Labs Labs: 01/14/17 04:30 01/14/17 04:30 PT 11.8 Seconds (9.8-13.1) 01/10/17 05:30 INR 1.1 (0.9-1.2) 01/10/17 05:30 APTT 30.3 Seconds (25.6-37.1) 01/10/17 05:30 - Head Exam Head Exam: NORMAL INSPECTION - Eye Exam Eye Exam: Normal appearance, PERRL - Respiratory Exam Respiratory Exam: Decreased Breath Sounds, Rales, Rhonchi. absent: Wheezes - Cardiovascular Exam Cardiovascular Exam: +S1, +S2 - GI/Abdominal Exam GI & Abdominal Exam: Soft, Normal Bowel Sounds Additional comments: peg tube - Extremities Exam Extremities Exam: absent: Calf Tenderness Assessment and Plan - Assessment and Plan (Free Text) Assessment: 1) Acute respiratory failure w/ hypercapnia - on vent, PRVC A/C, rate 14, vol 0.30 - ABG: pCO2 56, pO2 92, HCO3 34.0, ph 7.43 - Spoke with ICU attending will possibly attempt extubation today again 2) HCAP - continue with antibiotic treatment - Sputum grew staph aureus resistant to penicillin - Continue with Pipercillin and Tazobactum 3)Anemia - HB s/p now stable s/p transfusion at 7.4 4) Prophylaxis SCD for DVT prophylaxis Pepcid for GI Px
[2017-01-14] MEDS ORDERED: methylPREDNISolone 125 MG in Sodium Chloride 0.9% 50 ML IVPB ONE (14:15)
[2017-01-14] MEDS: Albuterol-Ipratrop 3 mg / 0.5 (3 ml) UD INH PRN (15:40)
[2017-01-14] MEDS: methylPREDNISolone 40 MG in Sodium Chloride 0.9% 50 ML IVPB SCH (16:55)
[2017-01-15] MEDS: methylPREDNISolone 40 MG in Sodium Chloride 0.9% 50 ML IVPB SCH ×3 (01:11→16:19)
[2017-01-15 05:05] LABS: ABG ALLEN TEST YES; ABG MECHANICAL RATE 14; ARTERIAL BLOOD GAS HCO3 33.9 mmol/L (21-28); ARTERIAL BLOOD GAS MODE A/C; ARTERIAL BLOOD GAS O2 CAPACITY 11.3 mL/dL (16-24); ARTERIAL BLOOD GAS O2 CONTENT 11.3 ML/dL (15-23); ARTERIAL BLOOD GAS PH 7.45 (7.35-7.45); ARTERIAL BLOOD GAS PO2 103 mm/Hg (80-100); ARTERIAL BLOOD HGB O2 SAT 96.7 % (95.0-98.0); ATERIAL BLOOD GAS PEEP 5; CARBOXYHEMOGLOBIN 1.9 % (0.5-1.5); METHEMOGLOBIN 1.5 % (0.0-3.0)
[2017-01-15 05:25] LABS: HEMATOCRIT 23.5 % (34.0-47.0); MEAN CELL VOLUME 91.4 fl (81.0-99.0); MEAN CORPUSCULAR HEMOGLOBIN 30.3 pg (27.0-31.0); MEAN CORPUSCULAR HGB CONC 33.1 g/dL (33.0-37.0); WHITE BLOOD COUNT 6.1 K/uL (4.8-10.8)
[2017-01-15 05:34] LABS: ALB/GLOB RATIO 0.7 (1.0-2.1); BILIRUBIN,TOTAL 0.5 mg/dl (0.2-1.3); CALCIUM 8.5 mg/dL (8.4-10.2); POTASSIUM 3.8 MMOL/L (3.6-5.0); TOTAL PROTEIN 5.9 G/DL (6.3-8.2)
[2017-01-15] MEDS: Insulin Regular 100 units/ml SC SCH ×4 (06:33→22:47)
--- NOTE | 2017-01-15 08:54 | CP.PCM.PN ---
Subjective - Date & Time of Evaluation Date of Evaluation: 01/15/17 Time of Evaluation: 08:30 - Subjective Subjective: Still vent dependent Still needs FiO2 of 40% and PEEP Sinus rhythm with APCs++ BP 124/70 mm Hg No murmur or gallop LABs noted Stable from cardiac point of view. Objective - Vital Signs/Intake and Output Vital Signs (last 24 hours): Temp Pulse Resp BP Pulse Ox 97.5 F L 67 24 120/68 100 01/15/17 08:00 01/15/17 08:00 01/15/17 08:00 01/15/17 08:00 01/15/17 08:00 Intake and Output: 01/15/17 01/15/17 06:59 18:59 Intake Total 1065 Output Total 850 Balance 215 - Medications Medications: Current Medications Acetaminophen (Tylenol 650mg/20.3ml Solution Ud) 650 mg PO Q6 PRN PRN Reason: fever Last Admin: 01/10/17 09:00 Dose: 650 mg Albuterol/Ipratropium (Duoneb 3 Mg/0.5 Mg (3 Ml) Ud) 3 ml INH RQ6 PRN PRN Reason: Shortness of Breath Last Admin: 01/14/17 15:40 Dose: 3 ml Famotidine (Pepcid) 20 mg IVP Q12 [facility] Last Admin: 01/14/17 21:06 Dose: 20 mg Furosemide (Lasix) 40 mg IV DAILY [facility] Last Admin: 01/14/17 09:32 Dose: 40 mg Methylprednisolone 40 mg/ (Sodium Chloride) 50 mls @ 100 mls/hr IVPB Q8 [facility] Last Admin: 01/15/17 01:11 Dose: 100 mls/hr Piperacillin Sod/Tazobactam (Sod 2.25 gm/ Sodium Chloride) 100 mls @ 100 mls/ hr IVPB Q6 [facility] Last Admin: 01/15/17 04:00 Dose: 100 mls/hr Insulin Human Regular (Humulin R) 0 units SC ACCU-CHECK [facility] PRN Reason: Protocol Last Admin: 01/15/17 06:33 Dose: 3 units - Labs Labs: 01/15/17 04:15 01/15/17 04:15 PT 11.8 Seconds (9.8-13.1) 01/10/17 05:30 INR 1.1 (0.9-1.2) 01/10/17 05:30 APTT 30.3 Seconds (25.6-37.1) 01/10/17 05:30
[2017-01-15 09:22] LABS: ABG ALLEN TEST YES
--- NOTE | 2017-01-15 09:34 | RAD ---
HISTORY: Intubated COMPARISON: 01/14/2017 FINDINGS: LUNGS: No infiltrate PLEURA: Minimal blunting of left costophrenic angle may reflect small pleural effusion. Clear right costophrenic angle. No pneumothorax. CARDIOVASCULAR: Normal heart size. Endotracheal tube unchanged in position. OSSEOUS STRUCTURES: No significant abnormalities. VISUALIZED UPPER ABDOMEN: Normal. OTHER FINDINGS: None. IMPRESSION: Possible small left pleural effusion. ET tube unchanged.
--- NOTE | 2017-01-15 09:52 | CP.CCUPN ---
<Perry Angelo - Last Filed: 01/15/17 10:32> CCU Subjective - Physician Review Events Since Last Encounter (Free Text): 01/15/17 09:50 Patient this morning. No acute distress, denies pain, responsive to name call, opens eyes, and follows commands. Patient remains intubated with ventilation support. Patient on PRVC A/C yesterday but switched to SIMV w/ PS. Patient continues to tolerate tube feed. Patient also started COPD exacerbation treatment yesterday. Extubated and supplement O2 via venti mask. Critical Care Time Spent (in minutes): 35 CCU Objective - Vital Signs / Intake & Output Vital Signs (Last 4 hours): Vital Signs Temp Pulse Resp BP Pulse Ox 01/15/17 08:00 97.5 F L 67 24 120/68 100 Intake and Output (Last 8hrs): Intake & Output 01/14/17 01/15/17 01/15/17 22:59 06:59 14:59 Intake Total 1165 690 Output Total 900 850 Balance 265 -160 Intake: IV 75 20 Intake, Piggyback 250 150 Tube Feeding 640 320 Free Water Flush 200 200 Output: Urine 900 850 Urethral (Atkins) 900 850 - Physical Exam Head: Positive for: Normocephalic Pupils: Positive for: PERRL Extroacular Muscles: Positive for: EOMI Conjunctiva: Positive for: Normal. Negative for: Icteric Mouth: Positive for: Moist Mucous Membranes Neck: Positive for: JVD. Negative for: Meningeal Signs Respiratory/Chest: Positive for: Decreased Breath Sounds, Rales. Negative for: Accessory Muscle Use, Wheezes Cardiovascular: Positive for: Irregular Rhythm, Bradycardic. Negative for: Murmurs, Rub Abdomen: Positive for: Normal Bowel Sounds, Other (PEG intact). Negative for: Tenderness, Distention Lower Extremity: Positive for: NORMAL PULSES. Negative for: CALF TENDERNESS, Cyanosis Neurological: Positive for: Other (follows commands) Skin: Positive for: Warm. Negative for: Rashes Psychiatric: Positive for: Alert - Medications Active Medications: Active Medications Generic Name Dose Route Start Last Admin Trade Name Freq PRN Reason Stop Dose Admin Acetaminophen 650 mg 01/10/17 08:40 01/10/17 09:00 Tylenol 650mg/20.3ml Solution Ud PO 650 mg Q6 PRN Administration fever Albuterol/Ipratropium 3 ml 01/14/17 13:58 01/14/17 15:40 Duoneb 3 Mg/0.5 Mg (3 Ml) Ud INH 3 ml RQ6 PRN Administration Shortness of Breath Famotidine 20 mg 01/09/17 21:00 01/14/17 21:06 Pepcid IVP 20 mg Q12 LINA Administration Furosemide 40 mg 01/13/17 16:00 01/14/17 09:32 Lasix IV 40 mg DAILY LINA Administration Methylprednisolone 40 mg/ 50 mls @ 100 mls/hr 01/14/17 17:00 01/15/17 09:36 Sodium Chloride IVPB 100 mls/hr Q8 LINA Administration Piperacillin Sod/Tazobactam 100 mls @ 100 mls/hr 01/15/17 04:00 01/15/17 09: 36 Sod 2.25 gm/ Sodium Chloride IVPB 100 mls/hr Q6 LINA Administration Insulin Human Regular 0 units 01/09/17 23:00 01/15/17 06:33 Humulin R SC 3 units ACCU-CHECK LINA Administration Protocol - Patient Studies Lab Studies: Microbiology Studies 01/09/17 16:20 Blood Culture - Final Blood-Venous NO GROWTH AFTER 5 DAYS Gram Stain - Final TEST NOT PERFORMED Lab Studies 01/15/17 01/15/17 01/15/17 Range/Units 09:00 06:30 05:01 WBC (4.8-10.8) K/uL RBC (3.80-5.20) Mil/uL Hgb (12.0-16.0) g/dL Hct (34.0-47.0) % MCV (81.0-99.0) fl MCH (27.0-31.0) pg MCHC (33.0-37.0) g/dL RDW (11.5-14.5) % Plt Count (130-400) K/uL pCO2 60 H 53 H (35-45) mm/Hg pO2 138 H 103 H (80-100) mm/Hg HCO3 31.4 H 33.9 H (21-28) mmol/L ABG pH 7.38 7.45 (7.35-7.45) ABG Total CO2 37.3 H 38.4 H (22-28) mmol/L ABG O2 Saturation 99.0 H 100.0 H (95-98) % ABG O2 Content 11.3 L (15-23) ML/dL ABG Base Excess 8.3 H 11.5 H (-2.0-3.0) mmol/L ABG Hemoglobin 8.2 L (11.7-17.4) g/dL ABG Carboxyhemoglobin 1.9 H (0.5-1.5) % POC ABG HHb (Measured) 0.0 (0.0-5.0) % ABG Methemoglobin 1.5 (0.0-3.0) % ABG O2 Capacity 11.3 L (16-24) mL/dL Rakan Test Yes Yes ABG Potassium 3.5 L (3.6-5.2) mmol/L A-a O2 Difference 72.0 116.0 mm/Hg Hgb O2 Saturation 96.7 (95.0-98.0) % Sodium 134.0 (132-148) mmol/L Chloride 100.0 (98-107) mmol/L Glucose 219 H (65-105) mg/dL Lactate 1.2 (0.7-2.1) mmol/L Vent Mode A/c Mechanical Rate 14 FiO2 40.0 40.0 % Tidal Volume 300 PEEP 5 Pressure Support CPAP Potassium (3.6-5.0) MMOL/L Carbon Dioxide (22-30) mmol/L Anion Gap (10-20) BUN (7-17) mg/dl Creatinine (0.7-1.2) mg/dL Est GFR ( Amer) Est GFR (Non-Af Amer) POC Glucose (mg/dL) 254 H (65-110) mg/dL Random Glucose (65-105) mg/dL Calcium (8.4-10.2) mg/dL Total Bilirubin (0.2-1.3) mg/dl AST (14-36) U/L ALT (9-52) U/L Alkaline Phosphatase (38-126) U/L Total Protein (6.3-8.2) G/DL Albumin (3.5-5.0) g/dL Globulin (2.2-3.9) gm/dL Albumin/Globulin Ratio (1.0-2.1) Arterial Blood Potassium 3.5 L (3.6-5.2) mmol/L 01/15/17 01/15/17 01/14/17 Range/Units 04:15 04:15 19:57 WBC 6.1 (4.8-10.8) K/uL RBC 2.57 L (3.80-5.20) Mil/uL Hgb 7.8 L (12.0-16.0) g/dL Hct 23.5 L (34.0-47.0) % MCV 91.4 (81.0-99.0) fl MCH 30.3 (27.0-31.0) pg MCHC 33.1 (33.0-37.0) g/dL RDW 19.0 H (11.5-14.5) % Plt Count 183 (130-400) K/uL pCO2 (35-45) mm/Hg pO2 (80-100) mm/Hg HCO3 (21-28) mmol/L ABG pH (7.35-7.45) ABG Total CO2 (22-28) mmol/L ABG O2 Saturation (95-98) % ABG O2 Content (15-23) ML/dL ABG Base Excess (-2.0-3.0) mmol/L ABG Hemoglobin (11.7-17.4) g/dL ABG Carboxyhemoglobin (0.5-1.5) % POC ABG HHb (Measured) (0.0-5.0) % ABG Methemoglobin (0.0-3.0) % ABG O2 Capacity (16-24) mL/dL Rakan Test ABG Potassium (3.6-5.2) mmol/L A-a O2 Difference mm/Hg Hgb O2 Saturation (95.0-98.0) % Sodium 139 (132-148) mmol/L Chloride 98 (98-107) mmol/L Glucose (65-105) mg/dL Lactate (0.7-2.1) mmol/L Vent Mode Mechanical Rate FiO2 % Tidal Volume PEEP Pressure Support CPAP Potassium 3.8 (3.6-5.0) MMOL/L Carbon Dioxide 33 H (22-30) mmol/L Anion Gap 12 (10-20) BUN 37 H (7-17) mg/dl Creatinine 1.1 (0.7-1.2) mg/dL Est GFR ( Amer) 59 Est GFR (Non-Af Amer) 49 POC Glucose (mg/dL) 168 H (65-110) mg/dL Random Glucose 203 H (65-105) mg/dL Calcium 8.5 (8.4-10.2) mg/dL Total Bilirubin 0.5 (0.2-1.3) mg/dl AST 35 (14-36) U/L ALT 39 (9-52) U/L Alkaline Phosphatase 88 (38-126) U/L Total Protein 5.9 L (6.3-8.2) G/DL Albumin 2.5 L (3.5-5.0) g/dL Globulin 3.4 (2.2-3.9) gm/dL Albumin/Globulin Ratio 0.7 L (1.0-2.1) Arterial Blood Potassium (3.6-5.2) mmol/L 01/14/17 01/14/17 01/14/17 Range/Units 15:55 13:45 11:26 WBC (4.8-10.8) K/uL RBC (3.80-5.20) Mil/uL Hgb (12.0-16.0) g/dL Hct (34.0-47.0) % MCV (81.0-99.0) fl MCH (27.0-31.0) pg MCHC (33.0-37.0) g/dL RDW (11.5-14.5) % Plt Count (130-400) K/uL pCO2 68 H (35-45) mm/Hg pO2 99 (80-100) mm/Hg HCO3 32.8 H (21-28) mmol/L ABG pH 7.36 (7.35-7.45) ABG Total CO2 40.5 H (22-28) mmol/L ABG O2 Saturation 100.5 H (95-98) % ABG O2 Content (15-23) ML/dL ABG Base Excess 10.1 H (-2.0-3.0) mmol/L ABG Hemoglobin (11.7-17.4) g/dL ABG Carboxyhemoglobin (0.5-1.5) % POC ABG HHb (Measured) (0.0-5.0) % ABG Methemoglobin (0.0-3.0) % ABG O2 Capacity (16-24) mL/dL Rakan Test Yes ABG Potassium 3.8 (3.6-5.2) mmol/L A-a O2 Difference 101.0 mm/Hg Hgb O2 Saturation (95.0-98.0) % Sodium 138.0 (132-148) mmol/L Chloride 105.0 (98-107) mmol/L Glucose 139 H (65-105) mg/dL Lactate 0.4 L (0.7-2.1) mmol/L Vent Mode Cpap Mechanical Rate FiO2 40.0 % Tidal Volume PEEP Pressure Support 10 CPAP 5 Potassium (3.6-5.0) MMOL/L Carbon Dioxide (22-30) mmol/L Anion Gap (10-20) BUN (7-17) mg/dl Creatinine (0.7-1.2) mg/dL Est GFR ( Amer) Est GFR (Non-Af Amer) POC Glucose (mg/dL) 155 H 142 H (65-110) mg/dL Random Glucose (65-105) mg/dL Calcium (8.4-10.2) mg/dL Total Bilirubin (0.2-1.3) mg/dl AST (14-36) U/L ALT (9-52) U/L Alkaline Phosphatase (38-126) U/L Total Protein (6.3-8.2) G/DL Albumin (3.5-5.0) g/dL Globulin (2.2-3.9) gm/dL Albumin/Globulin Ratio (1.0-2.1) Arterial Blood Potassium 3.8 (3.6-5.2) mmol/L Laboratory Results - last 24 hr 01/14/17 01/14/17 01/14/17 11:26 13:45 15:55 WBC RBC Hgb Hct MCV MCH MCHC RDW Plt Count pCO2 68 H pO2 99 HCO3 32.8 H ABG pH 7.36 ABG Total CO2 40.5 H ABG O2 Saturation 100.5 H ABG O2 Content ABG Base Excess 10.1 H ABG Hemoglobin ABG Carboxyhemoglobin POC ABG HHb (Measured) ABG Methemoglobin ABG O2 Capacity Rakan Test Yes ABG Potassium 3.8 A-a O2 Difference 101.0 Hgb O2 Saturation Sodium 138.0 Chloride 105.0 Glucose 139 H Lactate 0.4 L Vent Mode Cpap Mechanical Rate FiO2 40.0 Tidal Volume PEEP Pressure Support 10 CPAP 5 Potassium Carbon Dioxide Anion Gap BUN Creatinine Est GFR ( Amer) Est GFR (Non-Af Amer) POC Glucose (mg/dL) 142 H 155 H Random Glucose Calcium Total Bilirubin AST ALT Alkaline Phosphatase Total Protein Albumin Globulin Albumin/Globulin Ratio Arterial Blood Potassium 3.8 01/14/17 01/15/17 01/15/17 19:57 04:15 04:15 WBC 6.1 RBC 2.57 L Hgb 7.8 L Hct 23.5 L MCV 91.4 MCH 30.3 MCHC 33.1 RDW 19.0 H Plt Count 183 pCO2 pO2 HCO3 ABG pH ABG Total CO2 ABG O2 Saturation ABG O2 Content ABG Base Excess ABG Hemoglobin ABG Carboxyhemoglobin POC ABG HHb (Measured) ABG Methemoglobin ABG O2 Capacity Rakan Test ABG Potassium A-a O2 Difference Hgb O2 Saturation Sodium 139 Chloride 98 Glucose Lactate Vent Mode Mechanical Rate FiO2 Tidal Volume PEEP Pressure Support CPAP Potassium 3.8 Carbon Dioxide 33 H Anion Gap 12 BUN 37 H Creatinine 1.1 Est GFR ( Amer) 59 Est GFR (Non-Af Amer) 49 POC Glucose (mg/dL) 168 H Random Glucose 203 H Calcium 8.5 Total Bilirubin 0.5 AST 35 ALT 39 Alkaline Phosphatase 88 Total Protein 5.9 L Albumin 2.5 L Globulin 3.4 Albumin/Globulin Ratio 0.7 L Arterial Blood Potassium 01/15/17 01/15/17 01/15/17 05:01 06:30 09:00 WBC RBC Hgb Hct MCV MCH MCHC RDW Plt Count pCO2 53 H 60 H pO2 103 H 138 H HCO3 33.9 H 31.4 H ABG pH 7.45 7.38 ABG Total CO2 38.4 H 37.3 H ABG O2 Saturation 100.0 H 99.0 H ABG O2 Content 11.3 L ABG Base Excess 11.5 H 8.3 H ABG Hemoglobin 8.2 L ABG Carboxyhemoglobin 1.9 H POC ABG HHb (Measured) 0.0 ABG Methemoglobin 1.5 ABG O2 Capacity 11.3 L Rakan Test Yes Yes ABG Potassium 3.5 L A-a O2 Difference 116.0 72.0 Hgb O2 Saturation 96.7 Sodium 134.0 Chloride 100.0 Glucose 219 H Lactate 1.2 Vent Mode A/c Mechanical Rate 14 FiO2 40.0 40.0 Tidal Volume 300 PEEP 5 Pressure Support CPAP Potassium Carbon Dioxide Anion Gap BUN Creatinine Est GFR ( Amer) Est GFR (Non-Af Amer) POC Glucose (mg/dL) 254 H Random Glucose Calcium Total Bilirubin AST ALT Alkaline Phosphatase Total Protein Albumin Globulin Albumin/Globulin Ratio Arterial Blood Potassium 3.5 L Fingerstick Blood Sugar Results: 254 Review of Systems - Review of Systems Systems not reviewed;Unavailable: Other (just extubated) Assessment/Plan - Assessment and Plan (Free Text) Assessment: 71 y/o woman w/ pmh of PEG (placed 2 days prior to admission), bed bound, dementia, CHF EF 30%, AFib, HTN, and HLD in ICU for respiratory failure. Plan: Acute respiratory failure with hypercapnia - extubated this AM - ABG: pCO2 60, pO2 138, HCO3 31.4, ph 7.38 - CXR in AM shows unchanged from previous study - receiving tube feeds 40mL/hr - on sliding scale insulin - repeat ABG 1 hour s/p extubation COPD exacerbation - patient has history of emphysema - patient retaining CO2 - given loading dose of methylprednisolone 125 mg IV - c/w methyprednisolone 40 mg IV Q8h - c/w duonebs Q6h HCAP (healthcare-associated pneumonia) - sputum culture grew Staph aureus susceptible to all antibiotics except penicillin - c/w IV Piperacillin Sod/Tazobactam 2.25 g Q6h day 6 - c/w tylenol for fever prn Cardiac arrest - ACLS initiated in group home, ROSC achieved priro to EMS arrival, intubated for agonal breathing - improved mental status, Patient awake, oriented, follow commands. - K+ normalized Anemia - anemic since admission, Hb 6.9 01/12/2017 - s/p 1 PRBC 01/12/2017 - No evidence of active bleeding, Hb 7.8 this morning Atrial fibrillation - chronic, home meds xarelto and digoxin held - cardiac monitoring Prophylactic Measures - pepcid 20 mg IVP Q12 - SCDs <Troy Reyes - Last Filed: 01/15/17 23:18> Assessment/Plan - Assessment and Plan (Free Text) Plan: Attestation: Patient seen and examined at the bedside with Resident Dr. Barb Angelo; and I agree with his outline of plans and management documented below as discussed on AM rounds reflecting my review of all applicable clinical data, and participation in the care of the patient throughout the day in ICU; today, January 15, 2017.
--- NOTE | 2017-01-15 10:24 | PCM.PROC ---
Procedures Attestation:: I certify that I have explained the specified Operation(s) or Procedure(s), risks, benefits and reasonable alternatives to the Patient and/or other person responsible. The opportunity was given to ask questions and all questions answered - Extubation Clinical Parameters: Resolution/Stabilization of disease process, Hemodynamically Stable, Spontaneous Respirations, Acceptable Vent Settings (FIO2 <50%, PEEP<8, PaO2>75, pH>7.25) Weaning Criteria Met: Yes General Weaning Approaches: SIMV Weaning, Spontaneous breathing trials and use of T-Piece Patient Condition: Patient has been successfully extubated and assessed Oxygen Therapy: O2 via Venti Mask Patient Tolerated Procedure: Well
[2017-01-15 11:23] LABS: ABG ALLEN TEST YES; ARTERIAL BLOOD GAS HCO3 31.2 mmol/L (21-28); ARTERIAL BLOOD GAS O2 CAPACITY 12.5 mL/dL (16-24); ARTERIAL BLOOD GAS O2 CONTENT 11.3 ML/dL (15-23); ARTERIAL BLOOD GAS PH 7.29 (7.35-7.45); ARTERIAL BLOOD GAS PO2 54 mm/Hg (80-100); ARTERIAL BLOOD HGB O2 SAT 86.9 % (95.0-98.0); CARBOXYHEMOGLOBIN 1.9 % (0.5-1.5); HHB 9.5 % (0.0-5.0); METHEMOGLOBIN 1.7 % (0.0-3.0)
--- NOTE | 2017-01-15 15:08 | CP.PCM.PN ---
Subjective - Date & Time of Evaluation Date of Evaluation: 01/15/17 Time of Evaluation: 15:03 - Subjective Subjective: Patient seen and examined at bedside with Dr. Templeton. Patient is seen resting comfortably on ventimask, after being extubated. Pt responds to verbal stimuli , opens eyes and follows commands. Patient has been tolerating tube feed. Objective - Vital Signs/Intake and Output Vital Signs (last 24 hours): Temp Pulse Resp BP Pulse Ox 97.6 F 98 H 15 103/63 93 L 01/15/17 12:00 01/15/17 12:00 01/15/17 13:18 01/15/17 12:00 01/15/17 12:00 Intake and Output: 01/15/17 01/15/17 06:59 18:59 Intake Total 1065 330 Output Total 850 Balance 215 330 - Medications Medications: Current Medications Acetaminophen (Tylenol 650mg/20.3ml Solution Ud) 650 mg PO Q6 PRN PRN Reason: fever Last Admin: 01/10/17 09:00 Dose: 650 mg Albuterol/Ipratropium (Duoneb 3 Mg/0.5 Mg (3 Ml) Ud) 3 ml INH RQ6 PRN PRN Reason: Shortness of Breath Last Admin: 01/14/17 15:40 Dose: 3 ml Famotidine (Pepcid) 20 mg IVP Q12 LINA Last Admin: 01/14/17 21:06 Dose: 20 mg Furosemide (Lasix) 40 mg IV DAILY LINA Last Admin: 01/14/17 09:32 Dose: 40 mg Methylprednisolone 40 mg/ (Sodium Chloride) 50 mls @ 100 mls/hr IVPB Q8 LINA Last Admin: 01/15/17 09:36 Dose: 100 mls/hr Piperacillin Sod/Tazobactam (Sod 2.25 gm/ Sodium Chloride) 100 mls @ 100 mls/ hr IVPB Q6 LINA Last Admin: 01/15/17 09:36 Dose: 100 mls/hr Insulin Human Regular (Humulin R) 0 units SC ACCU-CHECK LINA PRN Reason: Protocol Last Admin: 01/15/17 06:33 Dose: 3 units - Labs Labs: 01/15/17 04:15 01/15/17 04:15 PT 11.8 Seconds (9.8-13.1) 01/10/17 05:30 INR 1.1 (0.9-1.2) 01/10/17 05:30 APTT 30.3 Seconds (25.6-37.1) 01/10/17 05:30 - Head Exam Head Exam: NORMAL INSPECTION - Eye Exam Eye Exam: Normal appearance Pupil Exam: NORMAL ACCOMODATION - ENT Exam ENT Exam: Mucous Membranes Moist - Neck Exam Additional comments: jvd - Respiratory Exam Respiratory Exam: Decreased Breath Sounds, Rales - Cardiovascular Exam Cardiovascular Exam: +S1, +S2 - GI/Abdominal Exam GI & Abdominal Exam: Soft. absent: Tenderness Additional comments: PEG intact - Extremities Exam Extremities Exam: absent: Calf Tenderness - Neurological Exam Neurological Exam: Awake, CN II-XII Intact Assessment and Plan - Assessment and Plan (Free Text) Assessment: 1) Acute respiratory failure w/ hypercapnia - Pt extubated today, doing well on the venti mask - ABG: pCO2 60, pO2 138, HCO3 31.4, ph 7.38 - tolerating tube feedings 2) HCAP - continue with antibiotic treatment - Sputum grew staph aureus resistant to penicillin - Continue with Pipercillin and Tazobactum 3)Anemia - No evidence of active bleeding, Hb 7.8 this morning 4) Prophylaxis SCD for DVT prophylaxis Pepcid for GI Px
--- NOTE | 2017-01-15 15:17 | CP.PCM.PN ---
Subjective - Date & Time of Evaluation Date of Evaluation: 01/15/17 Time of Evaluation: 15:15 - Subjective Subjective: Patient seen and examined at bedside with Dr. Templeton. Patient states he feels well, slight discomfort during deep inspiration. Repeat CT is ordered for today. Right chest tube has been clamped by [facility] team Objective - Vital Signs/Intake and Output Vital Signs (last 24 hours): Temp Pulse Resp BP Pulse Ox 97.6 F 98 H 15 108/75 93 L 01/15/17 12:00 01/15/17 12:00 01/15/17 13:18 01/15/17 15:13 01/15/17 12:00 Intake and Output: 01/15/17 01/15/17 06:59 18:59 Intake Total 1065 330 Output Total 850 Balance 215 330 - Medications Medications: Current Medications Acetaminophen (Tylenol 650mg/20.3ml Solution Ud) 650 mg PO Q6 PRN PRN Reason: fever Last Admin: 01/10/17 09:00 Dose: 650 mg Albuterol/Ipratropium (Duoneb 3 Mg/0.5 Mg (3 Ml) Ud) 3 ml INH RQ6 PRN PRN Reason: Shortness of Breath Last Admin: 01/14/17 15:40 Dose: 3 ml Famotidine (Pepcid) 20 mg IVP Q12 LINA Last Admin: 01/15/17 15:13 Dose: 20 mg Furosemide (Lasix) 40 mg IV DAILY LINA Last Admin: 01/15/17 15:13 Dose: 40 mg Methylprednisolone 40 mg/ (Sodium Chloride) 50 mls @ 100 mls/hr IVPB Q8 LINA Last Admin: 01/15/17 09:36 Dose: 100 mls/hr Piperacillin Sod/Tazobactam (Sod 2.25 gm/ Sodium Chloride) 100 mls @ 100 mls/ hr IVPB Q6 LINA Last Admin: 01/15/17 09:36 Dose: 100 mls/hr Insulin Human Regular (Humulin R) 0 units SC ACCU-CHECK LINA PRN Reason: Protocol Last Admin: 01/15/17 15:13 Dose: 1 units - Labs Labs: 01/15/17 04:15 01/15/17 04:15 PT 11.8 Seconds (9.8-13.1) 01/10/17 05:30 INR 1.1 (0.9-1.2) 01/10/17 05:30 APTT 30.3 Seconds (25.6-37.1) 01/10/17 05:30
[2017-01-16] MEDS: methylPREDNISolone 40 MG in Sodium Chloride 0.9% 50 ML IVPB SCH ×3 (00:47→17:16)
[2017-01-16 05:05] LABS: MEAN CELL VOLUME 93.9 fl (81.0-99.0); RED CELL DISTRIBUTION WIDTH 20.1 % (11.5-14.5); WHITE BLOOD COUNT 8.6 K/uL (4.8-10.8)
[2017-01-16 05:28] LABS: CALCIUM 8.6 mg/dL (8.4-10.2); POTASSIUM 4.2 MMOL/L (3.6-5.0)
[2017-01-16] MEDS: Insulin Regular 100 units/ml SC SCH ×3 (06:09→17:15)
[2017-01-16 08:06] LABS: ARTERIAL BLOOD GAS HCO3 31.4 mmol/L (21-28); ARTERIAL BLOOD GAS PH 7.38 (7.35-7.45); ARTERIAL BLOOD GAS PO2 138 mm/Hg (80-100)
--- NOTE | 2017-01-16 08:12 | CP.CCUPN ---
<Perry Angelo - Last Filed: 01/16/17 11:02> CCU Subjective - Physician Review Events Since Last Encounter (Free Text): 01/16/17 08:10 Patient this morning. No acute distress, denies pain, responsive to name call, opens eyes, and follows commands. Patient is alert and aware only to person, doesn't know where she is and why she is in the hospital. Patient extubated yesterday. Patient currently on high flow O2 nasal cannula. Patient continues to tolerate tube feed. Patient reports appetite. Patient continued on COPD exacerbation treatment. Patient had 2 soft loose stools yesterday and 1 this morning. Critical Care Time Spent (in minutes): 35 CCU Objective - Vital Signs / Intake & Output Vital Signs (Last 4 hours): Vital Signs Pulse Resp BP Pulse Ox 01/16/17 06:00 85 24 106/68 100 01/16/17 05:00 24 Intake and Output (Last 8hrs): Intake & Output 01/15/17 01/16/17 01/16/17 22:59 06:59 14:59 Intake Total 670 520 Output Total 200 100 Balance 470 420 Intake: Intake, Piggyback 150 Tube Feeding 320 320 Free Water Flush 200 200 Output: Urine 200 100 Urethral ([place]) 200 100 - Physical Exam Head: Positive for: Normocephalic Pupils: Positive for: PERRL Extroacular Muscles: Positive for: EOMI Conjunctiva: Positive for: Normal. Negative for: Icteric Mouth: Positive for: Moist Mucous Membranes Neck: Positive for: JVD. Negative for: Meningeal Signs Respiratory/Chest: Positive for: Decreased Breath Sounds, Rales. Negative for: Accessory Muscle Use, Wheezes Cardiovascular: Positive for: Irregular Rhythm, Bradycardic. Negative for: Murmurs, Rub Abdomen: Positive for: Normal Bowel Sounds, Other (PEG intact). Negative for: Tenderness, Distention Lower Extremity: Positive for: NORMAL PULSES. Negative for: CALF TENDERNESS, Cyanosis Neurological: Positive for: Other (follows commands) Skin: Positive for: Warm. Negative for: Rashes Psychiatric: Positive for: Alert - Medications Active Medications: Active Medications Generic Name Dose Route Start Last Admin Trade Name Freq PRN Reason Stop Dose Admin Acetaminophen 650 mg 01/10/17 08:40 01/10/17 09:00 Tylenol 650mg/20.3ml Solution Ud PO 650 mg Q6 PRN Administration fever Albuterol/Ipratropium 3 ml 01/14/17 13:58 01/14/17 15:40 Duoneb 3 Mg/0.5 Mg (3 Ml) Ud INH 3 ml RQ6 PRN Administration Shortness of Breath Famotidine 20 mg 01/09/17 21:00 01/15/17 20:30 Pepcid IVP 20 mg Q12 LINA Administration Methylprednisolone 40 mg/ 50 mls @ 100 mls/hr 01/14/17 17:00 01/16/17 00:47 Sodium Chloride IVPB 100 mls/hr Q8 LINA Administration Piperacillin Sod/Tazobactam 100 mls @ 100 mls/hr 01/15/17 04:00 01/16/17 04: 36 Sod 2.25 gm/ Sodium Chloride IVPB 100 mls/hr Q6 LINA Administration Insulin Human Regular 0 units 01/09/17 23:00 01/16/17 06:09 Humulin R SC 4 units ACCU-CHECK LINA Administration Protocol - Patient Studies Lab Studies: Lab Studies 01/16/17 01/16/17 01/16/17 Range/Units 06:05 04:20 04:20 WBC 8.6 (4.8-10.8) K/uL RBC 3.09 L (3.80-5.20) Mil/uL Hgb 9.3 L (12.0-16.0) g/dL Hct 29.0 L (34.0-47.0) % MCV 93.9 D (81.0-99.0) fl MCH 30.0 (27.0-31.0) pg MCHC 32.0 L (33.0-37.0) g/dL RDW 20.1 H (11.5-14.5) % Plt Count 289 D (130-400) K/uL pCO2 (35-45) mm/Hg pO2 (80-100) mm/Hg HCO3 (21-28) mmol/L ABG pH (7.35-7.45) ABG Total CO2 (22-28) mmol/L ABG O2 Saturation (95-98) % ABG O2 Content (15-23) ML/dL ABG Base Excess (-2.0-3.0) mmol/L ABG Hemoglobin (11.7-17.4) g/dL ABG Carboxyhemoglobin (0.5-1.5) % POC ABG HHb (Measured) (0.0-5.0) % ABG Methemoglobin (0.0-3.0) % ABG O2 Capacity (16-24) mL/dL Rakan Test A-a O2 Difference mm/Hg Hgb O2 Saturation (95.0-98.0) % FiO2 % Crit Value Called To Crit Value Called By Crit Value Read Back Blood Gas Notified Time Sodium 139 (132-148) mmol/l Potassium 4.2 (3.6-5.0) MMOL/L Chloride 99 (98-107) mmol/L Carbon Dioxide 30 (22-30) mmol/L Anion Gap 14 (10-20) BUN 49 H (7-17) mg/dl Creatinine 1.3 H (0.7-1.2) mg/dL Est GFR ( Amer) 49 Est GFR (Non-Af Amer) 40 POC Glucose (mg/dL) 305 H (65-110) mg/dL Random Glucose 272 H (65-105) mg/dL Calcium 8.6 (8.4-10.2) mg/dL 01/15/17 01/15/17 01/15/17 Range/Units 22:45 19:22 16:04 WBC (4.8-10.8) K/uL RBC (3.80-5.20) Mil/uL Hgb (12.0-16.0) g/dL Hct (34.0-47.0) % MCV (81.0-99.0) fl MCH (27.0-31.0) pg MCHC (33.0-37.0) g/dL RDW (11.5-14.5) % Plt Count (130-400) K/uL pCO2 (35-45) mm/Hg pO2 (80-100) mm/Hg HCO3 (21-28) mmol/L ABG pH (7.35-7.45) ABG Total CO2 (22-28) mmol/L ABG O2 Saturation (95-98) % ABG O2 Content (15-23) ML/dL ABG Base Excess (-2.0-3.0) mmol/L ABG Hemoglobin (11.7-17.4) g/dL ABG Carboxyhemoglobin (0.5-1.5) % POC ABG HHb (Measured) (0.0-5.0) % ABG Methemoglobin (0.0-3.0) % ABG O2 Capacity (16-24) mL/dL Rakan Test A-a O2 Difference mm/Hg Hgb O2 Saturation (95.0-98.0) % FiO2 % Crit Value Called To Crit Value Called By Crit Value Read Back Blood Gas Notified Time Sodium (132-148) mmol/l Potassium (3.6-5.0) MMOL/L Chloride (98-107) mmol/L Carbon Dioxide (22-30) mmol/L Anion Gap (10-20) BUN (7-17) mg/dl Creatinine (0.7-1.2) mg/dL Est GFR ( Amer) Est GFR (Non-Af Amer) POC Glucose (mg/dL) 265 H 263 H 280 H (65-110) mg/dL Random Glucose (65-105) mg/dL Calcium (8.4-10.2) mg/dL 01/15/17 01/15/17 01/15/17 Range/Units 11:33 11:15 09:00 WBC (4.8-10.8) K/uL RBC (3.80-5.20) Mil/uL Hgb (12.0-16.0) g/dL Hct (34.0-47.0) % MCV (81.0-99.0) fl MCH (27.0-31.0) pg MCHC (33.0-37.0) g/dL RDW (11.5-14.5) % Plt Count (130-400) K/uL pCO2 76 H* (35-45) mm/Hg pO2 54 L (80-100) mm/Hg HCO3 31.2 H (21-28) mmol/L ABG pH 7.29 L (7.35-7.45) ABG Total CO2 38.8 H (22-28) mmol/L ABG O2 Saturation 90.1 L (95-98) % ABG O2 Content 11.3 L (15-23) ML/dL ABG Base Excess 8.2 H (-2.0-3.0) mmol/L ABG Hemoglobin 9.2 L (11.7-17.4) g/dL ABG Carboxyhemoglobin 1.9 H (0.5-1.5) % POC ABG HHb (Measured) 9.5 H (0.0-5.0) % ABG Methemoglobin 1.7 (0.0-3.0) % ABG O2 Capacity 12.5 L (16-24) mL/dL Rakan Test Yes Yes A-a O2 Difference 136.0 mm/Hg Hgb O2 Saturation 86.9 L (95.0-98.0) % FiO2 40.0 % Crit Value Called To Dr bowden Crit Value Called By Ms Crit Value Read Back Y Blood Gas Notified Time 1122 Sodium (132-148) mmol/l Potassium (3.6-5.0) MMOL/L Chloride (98-107) mmol/L Carbon Dioxide (22-30) mmol/L Anion Gap (10-20) BUN (7-17) mg/dl Creatinine (0.7-1.2) mg/dL Est GFR ( Amer) Est GFR (Non-Af Amer) POC Glucose (mg/dL) 192 H (65-110) mg/dL Random Glucose (65-105) mg/dL Calcium (8.4-10.2) mg/dL Laboratory Results - last 24 hr 01/15/17 01/15/17 01/15/17 09:00 11:15 11:33 WBC RBC Hgb Hct MCV MCH MCHC RDW Plt Count pCO2 76 H* pO2 54 L HCO3 31.2 H ABG pH 7.29 L ABG Total CO2 38.8 H ABG O2 Saturation 90.1 L ABG O2 Content 11.3 L ABG Base Excess 8.2 H ABG Hemoglobin 9.2 L ABG Carboxyhemoglobin 1.9 H POC ABG HHb (Measured) 9.5 H ABG Methemoglobin 1.7 ABG O2 Capacity 12.5 L Rakan Test Yes Yes A-a O2 Difference 136.0 Hgb O2 Saturation 86.9 L FiO2 40.0 Crit Value Called To Dr bowden Crit Value Called By Ms Crit Value Read Back Y Blood Gas Notified Time 1122 Sodium Potassium Chloride Carbon Dioxide Anion Gap BUN Creatinine Est GFR ( Amer) Est GFR (Non-Af Amer) POC Glucose (mg/dL) 192 H Random Glucose Calcium 01/15/17 01/15/17 01/15/17 16:04 19:22 22:45 WBC RBC Hgb Hct MCV MCH MCHC RDW Plt Count pCO2 pO2 HCO3 ABG pH ABG Total CO2 ABG O2 Saturation ABG O2 Content ABG Base Excess ABG Hemoglobin ABG Carboxyhemoglobin POC ABG HHb (Measured) ABG Methemoglobin ABG O2 Capacity Rakan Test A-a O2 Difference Hgb O2 Saturation FiO2 Crit Value Called To Crit Value Called By Crit Value Read Back Blood Gas Notified Time Sodium Potassium Chloride Carbon Dioxide Anion Gap BUN Creatinine Est GFR ( Amer) Est GFR (Non-Af Amer) POC Glucose (mg/dL) 280 H 263 H 265 H Random Glucose Calcium 01/16/17 01/16/17 01/16/17 04:20 04:20 06:05 WBC 8.6 RBC 3.09 L Hgb 9.3 L Hct 29.0 L MCV 93.9 D MCH 30.0 MCHC 32.0 L RDW 20.1 H Plt Count 289 D pCO2 pO2 HCO3 ABG pH ABG Total CO2 ABG O2 Saturation ABG O2 Content ABG Base Excess ABG Hemoglobin ABG Carboxyhemoglobin POC ABG HHb (Measured) ABG Methemoglobin ABG O2 Capacity Rakan Test A-a O2 Difference Hgb O2 Saturation FiO2 Crit Value Called To Crit Value Called By Crit Value Read Back Blood Gas Notified Time Sodium 139 Potassium 4.2 Chloride 99 Carbon Dioxide 30 Anion Gap 14 BUN 49 H Creatinine 1.3 H Est GFR ( Amer) 49 Est GFR (Non-Af Amer) 40 POC Glucose (mg/dL) 305 H Random Glucose 272 H Calcium 8.6 Fingerstick Blood Sugar Results: 305 Review of Systems - Review of Systems Systems not reviewed;Unavailable: Dementia Assessment/Plan - Assessment and Plan (Free Text) Assessment: 71 y/o woman w/ pmh of PEG (placed 2 days prior to admission), bed bound, dementia, CHF EF 30%, AFib, HTN, and HLD in ICU for respiratory failure. Plan: Acute respiratory failure with hypercapnia - extubated yesterday - ABG 1 hour s/p extubation showed CO2 of 76 - patient put on High flow O2 nasal cannula 20 L/min, 50% O2, 33 C - ABG: pH 7.26, pCO2 77, pO2 85 COPD exacerbation - patient has history of emphysema - patient retaining CO2 - given loading dose of methylprednisolone 125 mg IV - c/w methyprednisolone 40 mg IV Q8h - c/w duonebs Q6h I & O - positive balance - urine output from [place] 300 mL overnight - start acetazolamide 250 mg IV daily Diet - reports appetite - swallow evaluation ordered - regular diet ordered - PEG placed due to poor nutrition - receiving tube feeds 40mL/hr - on sliding scale insulin Type 2 diabetes - newly diagnosed, HbA1c 6.9% - on insulin sliding scale HCAP (healthcare-associated pneumonia) - sputum culture grew Staph aureus susceptible to all antibiotics except penicillin - c/w IV Piperacillin Sod/Tazobactam 2.25 g Q6h day 6 - c/w tylenol for fever prn Cardiac arrest - ACLS initiated in longterm, ROSC achieved priro to EMS arrival, intubated for agonal breathing - improved mental status, Patient awake, oriented, follow commands. - K+ normalized Anemia - anemic since admission, Hb 6.9 01/12/2017 - s/p 1 PRBC 01/12/2017 - No evidence of active bleeding, Hb 9.3 this morning, possibly due to hemoconcentration - DC'ed lasix 40 mg IV Atrial fibrillation - chronic, home meds digoxin held - restarted xarelto 15 mg PO - cardiac monitoring Prophylactic Measures - pepcid 20 mg IVP Q12 - SCDs - PT/OT eval/treat ordered <BowdenTroyn - Last Filed: 01/16/17 13:53> Critical Care Progress Note - Nutrition Nutrition: Nutrition Category Date Time Status Pureed [Dysphagia/Modified Consistency Diet] [DIET] Diets 01/16/17 Lunch Active Assessment/Plan - Assessment and Plan (Free Text) Plan: Attestation: Patient seen and examined at the bedside with Resident Dr. Barb Angelo; and I agree with his outline of plans and management documented below as discussed on AM rounds reflecting my review of all applicable clinical data, and participation in the care of the patient throughout the day in ICU; today, January 16, 2017.
[2017-01-16 08:50] LABS: ABG ALLEN TEST YES; ARTERIAL BLOOD FLOW 20; ARTERIAL BLOOD GAS HCO3 29.6 mmol/L (21-28); ARTERIAL BLOOD GAS MODE HIGH FLOW LPM; ARTERIAL BLOOD GAS O2 CAPACITY 12.7 mL/dL (16-24); ARTERIAL BLOOD GAS O2 CONTENT 12.6 ML/dL (15-23); ARTERIAL BLOOD GAS PH 7.26 (7.35-7.45); ARTERIAL BLOOD GAS PO2 85 mm/Hg (80-100); ARTERIAL BLOOD HGB O2 SAT 95.5 % (95.0-98.0); CARBOXYHEMOGLOBIN 1.9 % (0.5-1.5); METHEMOGLOBIN 1.7 % (0.0-3.0)
--- NOTE | 2017-01-16 10:17 | CP.PCM.PN ---
Subjective - Date & Time of Evaluation Date of Evaluation: 01/16/17 Time of Evaluation: 07:00 - Subjective Subjective: - 71 YO F seen resting comfortably on high flow oxygen. Patient was switched to high flow yesterday after post extubation ABG showed CO2 retention. Patient appears to be doing well, resting comfortably. No overnight events reported. Patient is tolerating tube feeding. Had a soft bowl movement this morning. 2:26 PM:> Patient was reintubated , because patient became hypoxic, diaphoretic , and nonresponsive. ABG: Co2: 111. Objective - Vital Signs/Intake and Output Vital Signs (last 24 hours): Temp Pulse Resp BP Pulse Ox 97.5 F L 90 13 115/52 L 98 01/16/17 08:00 01/16/17 10:00 01/16/17 10:00 01/16/17 10:00 01/16/17 10:00 Intake and Output: 01/16/17 01/16/17 06:59 18:59 Intake Total 780 410 Output Total 100 Balance 680 410 - Medications Medications: Current Medications Acetaminophen (Tylenol 650mg/20.3ml Solution Ud) 650 mg PO Q6 PRN PRN Reason: fever Last Admin: 01/10/17 09:00 Dose: 650 mg Acetazolamide (Diamox 500 Mg Inj) 250 mg IV DAILY [facility] Stop: 01/19/17 09:01 Albuterol/Ipratropium (Duoneb 3 Mg/0.5 Mg (3 Ml) Ud) 3 ml INH RQ6 PRN PRN Reason: Shortness of Breath Last Admin: 01/14/17 15:40 Dose: 3 ml Famotidine (Pepcid) 20 mg PO Q12 [facility] Methylprednisolone 40 mg/ (Sodium Chloride) 50 mls @ 100 mls/hr IVPB Q8 [facility] Last Admin: 01/16/17 08:38 Dose: 100 mls/hr Piperacillin Sod/Tazobactam (Sod 2.25 gm/ Sodium Chloride) 100 mls @ 100 mls/ hr IVPB Q6 [facility] Last Admin: 01/16/17 09:03 Dose: 100 mls/hr Insulin Human Regular (Humulin R) 0 units SC ACCU-CHECK LINA PRN Reason: Protocol Last Admin: 01/16/17 06:09 Dose: 4 units Rivaroxaban (Xarelto) 15 mg PO DAILY@1700 [facility] PRN Reason: Protocol - Labs Labs: 01/16/17 04:20 01/16/17 04:20 PT 11.8 Seconds (9.8-13.1) 01/10/17 05:30 INR 1.1 (0.9-1.2) 01/10/17 05:30 APTT 30.3 Seconds (25.6-37.1) 01/10/17 05:30 - Constitutional Appears: No Acute Distress - Head Exam Head Exam: NORMAL INSPECTION - Neck Exam Additional comments: JVD - Respiratory Exam Respiratory Exam: Decreased Breath Sounds, Clear to Ausculation Bilateral, NORMAL BREATHING PATTERN. absent: Rhonchi, Wheezes - Cardiovascular Exam Cardiovascular Exam: REGULAR RHYTHM, +S1, +S2 - GI/Abdominal Exam GI & Abdominal Exam: Soft, Normal Bowel Sounds. absent: Tenderness - Extremities Exam Additional comments: Pulses +2 B/L - Neurological Exam Neurological Exam: Awake Assessment and Plan - Assessment and Plan (Free Text) Assessment: 1) Acute respiratory failure w/ hypercapnia -Post extubation ABG yesterday showed CO2 retention, CO2 of 76. Patient on high flow oxygen this morninL/ min, 50% 02, 30 cc - ABG: pH 7.26, pCO2 77, pO2 85 - tolerating tube feedings - Start acetazolamide 250 mg IV Q8 2:26 PM:> Patient was reintubated , because patient became hypoxic, diaphoretic , and nonresponsive. ABG: Co2: 111. 2) HCAP - continue with antibiotic treatment - Sputum grew staph aureus resistant to penicillin - Continue with Pipercillin and Tazobactum Day 6 3) COPD exacerbation - retaining CO2 - Continue with Methyprednisolone 40 mg IV Q8h - Continue with Duoneb Q6 4) Type 2 DM - Newly diagnosed: 6.9 - on insulin sliding scale 5)Anemia - No evidence of active bleeding, Hb 9.3 this morning 6) Chronic Atrial fibrilation -xarelto restarted 15 mg PO - Digoxin currently held - 7) Prophylaxis SCD for DVT prophylaxis Pepcid for GI Px - PT/OT ordered
[2017-01-16] MEDS ORDERED: Sterile Water 10 ML IV ONE (11:00)
[2017-01-16 13:15] LABS: ABG ALLEN TEST YES; ARTERIAL BLOOD FLOW 20; ARTERIAL BLOOD GAS HCO3 27.4 mmol/L (21-28); ARTERIAL BLOOD GAS MODE HFNC; ARTERIAL BLOOD GAS O2 CONTENT 7.8 ML/dL (15-23); ARTERIAL BLOOD GAS PH 7.12 (7.35-7.45); ARTERIAL BLOOD GAS PO2 24 mm/Hg (80-100); ARTERIAL BLOOD HGB O2 SAT 54.1 % (95.0-98.0); CARBOXYHEMOGLOBIN 1.5 % (0.5-1.5); HHB 42.8 % (0.0-5.0); METHEMOGLOBIN 1.6 % (0.0-3.0)
[2017-01-16] MEDS ORDERED: Albuterol-Ipratrop 3 mg / 0.5 (3 ml) UD ONE (13:15)
[2017-01-16] MEDS ORDERED: Midazolam 2 MG/2 ML VIAL ONE (13:16)
--- NOTE | 2017-01-16 13:39 | PCM.PROC ---
Procedures Attestation:: I certify that I have explained the specified Operation(s) or Procedure(s), risks, benefits and reasonable alternatives to the Patient and/or other person responsible. The opportunity was given to ask questions and all questions answered - Intubation Sedative: Versed (1 mg) Laryngoscope: Corinna (using Mac 4, DL x1.) ET Tube Size: 7.5 ET Tube Uncuffed: No ET Tube Secured at Depth: 22 ET Tube Secured Locarion: Lips ET Tube Placement Confirmation: Visualized Passing Through Cords, Breath Sounds Equal Bilaterally, Confirmation w/Capnometry Patient Tolerated Procedure: Well Procedure Immediate Complications: None
[2017-01-16] MEDS ORDERED: Midazolam 2 MG/2 ML VIAL IV ONE (13:44)
[2017-01-16] MEDS ORDERED: Sodium Chloride 3% for Inhalation 4 ML VIAL.NEB IH PRN (13:47)
[2017-01-16 16:49] LABS: ABG ALLEN TEST YES; ABG MECHANICAL RATE 12; ARTERIAL BLOOD GAS HCO3 28.4 mmol/L (21-28); ARTERIAL BLOOD GAS MODE PRVC/AC; ARTERIAL BLOOD GAS O2 CAPACITY 12.4 mL/dL (16-24); ARTERIAL BLOOD GAS O2 CONTENT 12.4 ML/dL (15-23); ARTERIAL BLOOD GAS PH 7.25 (7.35-7.45); ARTERIAL BLOOD GAS PO2 111 mm/Hg (80-100); ARTERIAL BLOOD HGB O2 SAT 96.7 % (95.0-98.0); ATERIAL BLOOD GAS PEEP 5; CARBOXYHEMOGLOBIN 1.6 % (0.5-1.5); METHEMOGLOBIN 1.7 % (0.0-3.0)
--- NOTE | 2017-01-16 19:49 | RAD ---
HISTORY: Intubated COMPARISON: Multiple serial examinations preceding the most recent study: January 15, 2017. 07:40 FINDINGS: LUNGS: Worsening bilateral infiltrates. PLEURA: Increasing pleural effusions particularly on the right. CARDIOVASCULAR: No significant interval change compared to the prior examination(s). OSSEOUS STRUCTURES: No significant abnormalities. VISUALIZED UPPER ABDOMEN: Normal. OTHER FINDINGS: Satisfactory position of endotracheal tube without appreciable change compared to the prior study. IMPRESSION: Marked progression of infiltrates and pleural effusions. Stable position of endotracheal tube.
[2017-01-17] MEDS: methylPREDNISolone 40 MG in Sodium Chloride 0.9% 50 ML IVPB SCH ×3 (00:27→16:06)
[2017-01-17] MEDS: Insulin Regular 100 units/ml SC SCH ×5 (00:50→22:33)
[2017-01-17 05:23] LABS: ABG ALLEN TEST YES; ABG MECHANICAL RATE 18; ARTERIAL BLOOD GAS HCO3 31.9 mmol/L (21-28); ARTERIAL BLOOD GAS MODE A/C; ARTERIAL BLOOD GAS PH 7.48 (7.35-7.45); ARTERIAL BLOOD GAS PO2 158 mm/Hg (80-100); ATERIAL BLOOD GAS PEEP 5
[2017-01-17 06:17] LABS: CALCIUM 8.2 mg/dL (8.4-10.2); POTASSIUM 3.7 MMOL/L (3.6-5.0)
[2017-01-17 06:19] LABS: HEMATOCRIT 23.3 % (34.0-47.0); MEAN CELL VOLUME 92.7 fl (81.0-99.0); MEAN CORPUSCULAR HGB CONC 32.4 g/dL (33.0-37.0); RED CELL DISTRIBUTION WIDTH 19.1 % (11.5-14.5); WHITE BLOOD COUNT 6.3 K/uL (4.8-10.8)
--- NOTE | 2017-01-17 07:45 | CP.CCUPN ---
CCU Subjective - Physician Review Events Since Last Encounter (Free Text): 01/17/17 07:43 Patient on ventilator, on PRVC TV 380, FIO2 60%, RR 18, no pressors, opens eyes to verbal stimuli, no fever, events reviewed CCU Objective - Vital Signs / Intake & Output Vital Signs (Last 4 hours): Vital Signs Temp Pulse Resp BP Pulse Ox 01/17/17 05:56 73 19 107/74 100 01/17/17 05:00 64 15 107/74 100 01/17/17 04:00 97 F L 68 21 123/72 100 Intake and Output (Last 8hrs): Intake & Output 01/16/17 01/17/17 01/17/17 22:59 06:59 14:59 Intake Total 610 860 Output Total 150 250 Balance 460 610 Intake: IV 0 Intake, Piggyback 250 200 Tube Feeding 160 360 Free Water Flush 200 300 Output: Urine 150 250 Urethral (Atkins) 150 250 - Physical Exam Head: Positive for: Normocephalic Pupils: Positive for: PERRL Conjunctiva: Positive for: Normal. Negative for: Icteric Mouth: Positive for: Moist Mucous Membranes Neck: Positive for: JVD. Negative for: Meningeal Signs Respiratory/Chest: Positive for: Decreased Breath Sounds, Rales. Negative for: Accessory Muscle Use, Wheezes Cardiovascular: Positive for: Irregular Rhythm. Negative for: Murmurs, Rub Abdomen: Positive for: Normal Bowel Sounds, Other (PEG intact). Negative for: Tenderness, Distention Lower Extremity: Positive for: NORMAL PULSES. Negative for: CALF TENDERNESS, Cyanosis Neurological: Positive for: Other (on ventilator) Skin: Positive for: Warm. Negative for: Rashes - Medications Active Medications: Active Medications Generic Name Dose Route Start Last Admin Trade Name Freq PRN Reason Stop Dose Admin Acetaminophen 650 mg 01/10/17 08:40 01/10/17 09:00 Tylenol 650mg/20.3ml Solution Ud PO 650 mg Q6 PRN Administration fever Acetazolamide 250 mg 01/16/17 09:00 01/16/17 10:59 Diamox 500 Mg Inj IV 01/19/17 09:01 250 mg DAILY LINA Administration Albuterol/Ipratropium 3 ml 01/14/17 13:58 01/14/17 15:40 Duoneb 3 Mg/0.5 Mg (3 Ml) Ud INH 3 ml RQ6 PRN Administration Shortness of Breath Famotidine 20 mg 01/16/17 21:00 01/16/17 20:35 Pepcid PO 20 mg Q12 LINA Administration Methylprednisolone 40 mg/ 50 mls @ 100 mls/hr 01/14/17 17:00 01/17/17 00:27 Sodium Chloride IVPB 100 mls/hr Q8 LINA Administration Piperacillin Sod/Tazobactam 100 mls @ 100 mls/hr 01/15/17 04:00 01/17/17 04: 23 Sod 2.25 gm/ Sodium Chloride IVPB 100 mls/hr Q6 LINA Administration Insulin Human Regular 0 units 01/16/17 11:48 01/17/17 06:37 Humulin R SC 3 unit ACCU-CHECK LINA Administration Protocol Rivaroxaban 15 mg 01/16/17 17:00 01/16/17 17:15 Xarelto PO 15 mg DAILY@1700 LINA Administration Protocol - Patient Studies Lab Studies: Microbiology Studies 01/16/17 14:00 Gram Stain - Final Trachasp Lab Studies 01/17/17 01/17/17 01/17/17 Range/Units 06:00 06:00 05:20 WBC 6.3 (4.8-10.8) K/uL RBC 2.51 L (3.80-5.20) Mil/uL Hgb 7.5 L (12.0-16.0) g/dL Hct 23.3 L (34.0-47.0) % MCV 92.7 (81.0-99.0) fl MCH 30.0 (27.0-31.0) pg MCHC 32.4 L (33.0-37.0) g/dL RDW 19.1 H (11.5-14.5) % Plt Count 212 (130-400) K/uL pCO2 45 (35-45) mm/Hg pO2 158 H (80-100) mm/Hg HCO3 31.9 H (21-28) mmol/L ABG pH 7.48 H (7.35-7.45) ABG Total CO2 34.9 H (22-28) mmol/L ABG O2 Saturation 99.5 H (95-98) % ABG O2 Content (15-23) ML/dL ABG Base Excess 8.8 H (-2.0-3.0) mmol/L ABG Hemoglobin (11.7-17.4) g/dL ABG Carboxyhemoglobin (0.5-1.5) % POC ABG HHb (Measured) (0.0-5.0) % ABG Methemoglobin (0.0-3.0) % ABG O2 Capacity (16-24) mL/dL Rakan Test Yes ABG Potassium 3.7 (3.6-5.2) mmol/L A-a O2 Difference 214.0 mm/Hg Hgb O2 Saturation (95.0-98.0) % Sodium 139 136.0 (132-148) mmol/L Chloride 99 103.0 (98-107) mmol/L Glucose 260 H (65-105) mg/dL Lactate 1.4 (0.7-2.1) mmol/L Liter Flow Vent Mode A/c Mechanical Rate 18 FiO2 60.0 % Tidal Volume 380 PEEP 5 Blood Gas Comments Crit Value Called To Crit Value Called By Crit Value Read Back Blood Gas Notified Time Potassium 3.7 (3.6-5.0) MMOL/L Carbon Dioxide 30 (22-30) mmol/L Anion Gap 14 (10-20) BUN 47 H (7-17) mg/dl Creatinine 1.5 H (0.7-1.2) mg/dL Est GFR ( Amer) 41 Est GFR (Non-Af Amer) 34 POC Glucose (mg/dL) (65-110) mg/dL Random Glucose 216 H (65-105) mg/dL Calcium 8.2 L (8.4-10.2) mg/dL Arterial Blood Potassium 3.7 (3.6-5.2) mmol/L 01/17/17 01/16/17 01/16/17 Range/Units 04:32 21:16 20:40 WBC (4.8-10.8) K/uL RBC (3.80-5.20) Mil/uL Hgb (12.0-16.0) g/dL Hct (34.0-47.0) % MCV (81.0-99.0) fl MCH (27.0-31.0) pg MCHC (33.0-37.0) g/dL RDW (11.5-14.5) % Plt Count (130-400) K/uL pCO2 (35-45) mm/Hg pO2 (80-100) mm/Hg HCO3 (21-28) mmol/L ABG pH (7.35-7.45) ABG Total CO2 (22-28) mmol/L ABG O2 Saturation (95-98) % ABG O2 Content (15-23) ML/dL ABG Base Excess (-2.0-3.0) mmol/L ABG Hemoglobin (11.7-17.4) g/dL ABG Carboxyhemoglobin (0.5-1.5) % POC ABG HHb (Measured) (0.0-5.0) % ABG Methemoglobin (0.0-3.0) % ABG O2 Capacity (16-24) mL/dL Rakan Test ABG Potassium (3.6-5.2) mmol/L A-a O2 Difference mm/Hg Hgb O2 Saturation (95.0-98.0) % Sodium (132-148) mmol/L Chloride (98-107) mmol/L Glucose (65-105) mg/dL Lactate (0.7-2.1) mmol/L Liter Flow Vent Mode Mechanical Rate FiO2 % Tidal Volume PEEP Blood Gas Comments Crit Value Called To Crit Value Called By Crit Value Read Back Blood Gas Notified Time Potassium (3.6-5.0) MMOL/L Carbon Dioxide (22-30) mmol/L Anion Gap (10-20) BUN (7-17) mg/dl Creatinine (0.7-1.2) mg/dL Est GFR ( Amer) Est GFR (Non-Af Amer) POC Glucose (mg/dL) 240 H 248 H 314 H (65-110) mg/dL Random Glucose (65-105) mg/dL Calcium (8.4-10.2) mg/dL Arterial Blood Potassium (3.6-5.2) mmol/L 01/16/17 01/16/17 01/16/17 Range/Units 17:10 16:06 13:10 WBC (4.8-10.8) K/uL RBC (3.80-5.20) Mil/uL Hgb (12.0-16.0) g/dL Hct (34.0-47.0) % MCV (81.0-99.0) fl MCH (27.0-31.0) pg MCHC (33.0-37.0) g/dL RDW (11.5-14.5) % Plt Count (130-400) K/uL pCO2 75 H* 111 H* (35-45) mm/Hg pO2 111 H 24 L* (80-100) mm/Hg HCO3 28.4 H 27.4 (21-28) mmol/L ABG pH 7.25 L 7.12 L* (7.35-7.45) ABG Total CO2 35.2 H 39.5 H (22-28) mmol/L ABG O2 Saturation 100.0 H 55.8 L (95-98) % ABG O2 Content 12.4 L 7.8 L (15-23) ML/dL ABG Base Excess 4.4 H 4.3 H (-2.0-3.0) mmol/L ABG Hemoglobin 9.0 L 10.3 L (11.7-17.4) g/dL ABG Carboxyhemoglobin 1.6 H 1.5 (0.5-1.5) % POC ABG HHb (Measured) 0.0 42.8 H (0.0-5.0) % ABG Methemoglobin 1.7 1.6 (0.0-3.0) % ABG O2 Capacity 12.4 L 14.0 L (16-24) mL/dL Rakan Test Yes Yes ABG Potassium (3.6-5.2) mmol/L A-a O2 Difference 223.0 194.0 mm/Hg Hgb O2 Saturation 96.7 54.1 L (95.0-98.0) % Sodium (132-148) mmol/L Chloride (98-107) mmol/L Glucose (65-105) mg/dL Lactate (0.7-2.1) mmol/L Liter Flow 20 Vent Mode Prvc/ac Hfnc Mechanical Rate 12 FiO2 60.0 50.0 % Tidal Volume 300 PEEP 5 Blood Gas Comments Prvc/ac12/v300/60%/+5peep Hfnc 20 lpm/50% Crit Value Called To Dr kal bowden m.d. Crit Value Called By Aracelis Hsu Crit Value Read Back Y Y Blood Gas Notified Time [id number] [id number] Potassium (3.6-5.0) MMOL/L Carbon Dioxide (22-30) mmol/L Anion Gap (10-20) BUN (7-17) mg/dl Creatinine (0.7-1.2) mg/dL Est GFR ( Amer) Est GFR (Non-Af Amer) POC Glucose (mg/dL) 320 H (65-110) mg/dL Random Glucose (65-105) mg/dL Calcium (8.4-10.2) mg/dL Arterial Blood Potassium (3.6-5.2) mmol/L 01/16/17 01/16/17 01/15/17 Range/Units 11:20 07:35 09:00 WBC (4.8-10.8) K/uL RBC (3.80-5.20) Mil/uL Hgb (12.0-16.0) g/dL Hct (34.0-47.0) % MCV (81.0-99.0) fl MCH (27.0-31.0) pg MCHC (33.0-37.0) g/dL RDW (11.5-14.5) % Plt Count (130-400) K/uL pCO2 77 H* 60 H (35-45) mm/Hg pO2 85 138 H (80-100) mm/Hg HCO3 29.6 H 31.4 H (21-28) mmol/L ABG pH 7.26 L 7.38 (7.35-7.45) ABG Total CO2 37.0 H 37.3 H (22-28) mmol/L ABG O2 Saturation 99.0 H 99.0 H (95-98) % ABG O2 Content 12.6 L (15-23) ML/dL ABG Base Excess 6.0 H 8.3 H (-2.0-3.0) mmol/L ABG Hemoglobin 9.3 L (11.7-17.4) g/dL ABG Carboxyhemoglobin 1.9 H (0.5-1.5) % POC ABG HHb (Measured) 1.0 (0.0-5.0) % ABG Methemoglobin 1.7 (0.0-3.0) % ABG O2 Capacity 12.7 L (16-24) mL/dL Rakan Test Yes ABG Potassium 3.5 L (3.6-5.2) mmol/L A-a O2 Difference 175.0 72.0 mm/Hg Hgb O2 Saturation 95.5 (95.0-98.0) % Sodium 134.0 (132-148) mmol/L Chloride 100.0 (98-107) mmol/L Glucose 219 H (65-105) mg/dL Lactate 1.2 (0.7-2.1) mmol/L Liter Flow 20 Vent Mode High flow lpm Mechanical Rate FiO2 50.0 40.0 % Tidal Volume PEEP Blood Gas Comments Hfnc 20 lpm/50% Crit Value Called To Cami slade r.n. Crit Value Called By Aracelis Crit Value Read Back Y Blood Gas Notified Time 849 Potassium (3.6-5.0) MMOL/L Carbon Dioxide (22-30) mmol/L Anion Gap (10-20) BUN (7-17) mg/dl Creatinine (0.7-1.2) mg/dL Est GFR ( Amer) Est GFR (Non-Af Amer) POC Glucose (mg/dL) 259 H (65-110) mg/dL Random Glucose (65-105) mg/dL Calcium (8.4-10.2) mg/dL Arterial Blood Potassium 3.5 L (3.6-5.2) mmol/L Laboratory Results - last 24 hr 01/15/17 01/16/17 01/16/17 09:00 07:35 11:20 WBC RBC Hgb Hct MCV MCH MCHC RDW Plt Count pCO2 60 H 77 H* pO2 138 H 85 HCO3 31.4 H 29.6 H ABG pH 7.38 7.26 L ABG Total CO2 37.3 H 37.0 H ABG O2 Saturation 99.0 H 99.0 H ABG O2 Content 12.6 L ABG Base Excess 8.3 H 6.0 H ABG Hemoglobin 9.3 L ABG Carboxyhemoglobin 1.9 H POC ABG HHb (Measured) 1.0 ABG Methemoglobin 1.7 ABG O2 Capacity 12.7 L Rakan Test Yes ABG Potassium 3.5 L A-a O2 Difference 72.0 175.0 Hgb O2 Saturation 95.5 Sodium 134.0 Chloride 100.0 Glucose 219 H Lactate 1.2 Liter Flow 20 Vent Mode High flow lpm Mechanical Rate FiO2 40.0 50.0 Tidal Volume PEEP Blood Gas Comments Hfnc 20 lpm/50% Crit Value Called To Cami slade r.n. Crit Value Called By Aracelis Steen Value Read Back Y Blood Gas Notified Time 849 Potassium Carbon Dioxide Anion Gap BUN Creatinine Est GFR ( Amer) Est GFR (Non-Af Amer) POC Glucose (mg/dL) 259 H Random Glucose Calcium Arterial Blood Potassium 3.5 L 01/16/17 01/16/17 01/16/17 13:10 16:06 17:10 WBC RBC Hgb Hct MCV MCH MCHC RDW Plt Count pCO2 111 H* 75 H* pO2 24 L* 111 H HCO3 27.4 28.4 H ABG pH 7.12 L* 7.25 L ABG Total CO2 39.5 H 35.2 H ABG O2 Saturation 55.8 L 100.0 H ABG O2 Content 7.8 L 12.4 L ABG Base Excess 4.3 H 4.4 H ABG Hemoglobin 10.3 L 9.0 L ABG Carboxyhemoglobin 1.5 1.6 H POC ABG HHb (Measured) 42.8 H 0.0 ABG Methemoglobin 1.6 1.7 ABG O2 Capacity 14.0 L 12.4 L Rakan Test Yes Yes ABG Potassium A-a O2 Difference 194.0 223.0 Hgb O2 Saturation 54.1 L 96.7 Sodium Chloride Glucose Lactate Liter Flow 20 Vent Mode Hfnc Prvc/ac Mechanical Rate 12 FiO2 50.0 60.0 Tidal Volume 300 PEEP 5 Blood Gas Comments Hfnc 20 lpm/50% Prvc/ac12/v300/60%/+5peep Crit Value Called To Dr kal bowden m.d. Crit Value Called By Aracelis Aracelis Crit Value Read Back Y Y Blood Gas Notified Time [id number] Potassium Carbon Dioxide Anion Gap BUN Creatinine Est GFR ( Amer) Est GFR (Non-Af Amer) POC Glucose (mg/dL) 320 H Random Glucose Calcium Arterial Blood Potassium 01/16/17 01/16/17 01/17/17 20:40 21:16 04:32 WBC RBC Hgb Hct MCV MCH MCHC RDW Plt Count pCO2 pO2 HCO3 ABG pH ABG Total CO2 ABG O2 Saturation ABG O2 Content ABG Base Excess ABG Hemoglobin ABG Carboxyhemoglobin POC ABG HHb (Measured) ABG Methemoglobin ABG O2 Capacity Rakan Test ABG Potassium A-a O2 Difference Hgb O2 Saturation Sodium Chloride Glucose Lactate Liter Flow Vent Mode Mechanical Rate FiO2 Tidal Volume PEEP Blood Gas Comments Crit Value Called To Crit Value Called By Crit Value Read Back Blood Gas Notified Time Potassium Carbon Dioxide Anion Gap BUN Creatinine Est GFR ( Amer) Est GFR (Non-Af Amer) POC Glucose (mg/dL) 314 H 248 H 240 H Random Glucose Calcium Arterial Blood Potassium 01/17/17 01/17/17 01/17/17 05:20 06:00 06:00 WBC 6.3 RBC 2.51 L Hgb 7.5 L Hct 23.3 L MCV 92.7 MCH 30.0 MCHC 32.4 L RDW 19.1 H Plt Count 212 pCO2 45 pO2 158 H HCO3 31.9 H ABG pH 7.48 H ABG Total CO2 34.9 H ABG O2 Saturation 99.5 H ABG O2 Content ABG Base Excess 8.8 H ABG Hemoglobin ABG Carboxyhemoglobin POC ABG HHb (Measured) ABG Methemoglobin ABG O2 Capacity Rakan Test Yes ABG Potassium 3.7 A-a O2 Difference 214.0 Hgb O2 Saturation Sodium 136.0 139 Chloride 103.0 99 Glucose 260 H Lactate 1.4 Liter Flow Vent Mode A/c Mechanical Rate 18 FiO2 60.0 Tidal Volume 380 PEEP 5 Blood Gas Comments Crit Value Called To Crit Value Called By Crit Value Read Back Blood Gas Notified Time Potassium 3.7 Carbon Dioxide 30 Anion Gap 14 BUN 47 H Creatinine 1.5 H Est GFR ( Amer) 41 Est GFR (Non-Af Amer) 34 POC Glucose (mg/dL) Random Glucose 216 H Calcium 8.2 L Arterial Blood Potassium 3.7 Fingerstick Blood Sugar Results: 240 Assessment/Plan - Assessment and Plan (Free Text) Assessment: A/P Respiratory failure, pneumonia, COPD, h/o CHF, anemia, A Fib, KARMA, DM - Ventilatory support - Weaning as tolerated - pulmonary toilets - Continue meds Critical care 35 min
--- NOTE | 2017-01-17 10:48 | RAD ---
HISTORY: Intubated. Technique: Single view portable semi erect @ 07:10 COMPARISON: Multiple serial examinations preceding the most recent study: January 16, 2017. 13:35 FINDINGS: LUNGS: Improved aeration of the right lung. Stable infiltrates left upper and left lower lobe. PLEURA: Decrease in perception of right pleural effusion. Stable left pleural effusion. CARDIOVASCULAR: No significant interval change compared to the prior examination(s). OSSEOUS STRUCTURES: No significant abnormalities. VISUALIZED UPPER ABDOMEN: Normal. OTHER FINDINGS: Stable position of endotracheal tube. IMPRESSION: Improved aeration of the right lung. Stable multifocal infiltrates remain on the left.
--- NOTE | 2017-01-17 11:58 | CP.PCM.PN ---
Subjective - Date & Time of Evaluation Date of Evaluation: 01/17/17 Time of Evaluation: 08:30 - Subjective Subjective: seen in icu newly intubated for hypoxia Objective - Vital Signs/Intake and Output Vital Signs (last 24 hours): Temp Pulse Resp BP Pulse Ox 98.3 F 60 18 128/70 100 01/17/17 07:58 01/17/17 10:00 01/17/17 10:00 01/17/17 10:00 01/17/17 10:00 Intake and Output: 01/17/17 01/17/17 06:59 18:59 Intake Total 1180 410 Output Total 250 Balance 930 410 - Medications Medications: Current Medications Acetaminophen (Tylenol 650mg/20.3ml Solution Ud) 650 mg PO Q6 PRN PRN Reason: fever Last Admin: 01/10/17 09:00 Dose: 650 mg Acetazolamide (Diamox 500 Mg Inj) 250 mg IV DAILY [facility] Stop: 01/19/17 09:01 Last Admin: 01/17/17 08:20 Dose: 250 mg Albuterol/Ipratropium (Duoneb 3 Mg/0.5 Mg (3 Ml) Ud) 3 ml INH RQ6 PRN PRN Reason: Shortness of Breath Last Admin: 01/14/17 15:40 Dose: 3 ml Famotidine (Pepcid) 20 mg PO Q12 [facility] Last Admin: 01/17/17 08:21 Dose: 20 mg Methylprednisolone 40 mg/ (Sodium Chloride) 50 mls @ 100 mls/hr IVPB Q8 [facility] Last Admin: 01/17/17 08:21 Dose: 100 mls/hr Piperacillin Sod/Tazobactam (Sod 2.25 gm/ Sodium Chloride) 100 mls @ 100 mls/ hr IVPB Q6 [facility] Last Admin: 01/17/17 10:12 Dose: 100 mls/hr Insulin Human Regular (Humulin R) 0 units SC ACCU-CHECK LINA PRN Reason: Protocol Last Admin: 01/17/17 10:22 Dose: 2 unit Rivaroxaban (Xarelto) 15 mg PO DAILY@1700 LINA PRN Reason: Protocol Last Admin: 01/16/17 17:15 Dose: 15 mg - Labs Labs: 01/17/17 06:00 01/17/17 06:00 PT 11.8 Seconds (9.8-13.1) 01/10/17 05:30 INR 1.1 (0.9-1.2) 01/10/17 05:30 APTT 30.3 Seconds (25.6-37.1) 01/10/17 05:30 - Constitutional Appears: Toxic - Head Exam Head Exam: ATRAUMATIC - Eye Exam Eye Exam: Normal appearance - ENT Exam Additional comments: et tube - Neck Exam Neck Exam: Normal Inspection - Respiratory Exam Additional comments: coarse b/l - Cardiovascular Exam Cardiovascular Exam: +S1, +S2 - GI/Abdominal Exam GI & Abdominal Exam: Normal Bowel Sounds - Extremities Exam Additional comments: no edema - Neurological Exam Additional comments: intubated and sedated - Psychiatric Exam Additional comments: intubated and sedated - Skin Skin Exam: Normal Color Assessment and Plan - Assessment and Plan (Free Text) Assessment: ARF/ ANemia/ Hypoxic respiratory failure/ Pneumonia/Afib -cr has been trending up w/ bp on low end - recc fluid bolus or consider pressors -abx for pna -will check ua and lytes -vent weaning per primary team
[2017-01-17 14:55] LABS: RBC URINE 19 /hpf (0-3); URINE BILIRUBIN NEGATIVE (NEGATIVE); URINE BLOOD SMALL (NEGATIVE); URINE COLOR YELLOW (YELLOW); URINE GLUCOSE (UA) NEG (Normal); URINE KETONE NEGATIVE (NEGATIVE); URINE LEUKOCYTE ESTERASE MOD Leu/uL (Negative); URINE PROTEIN 30 mg/dL (NEGATIVE); URINE UROBILINOGEN 0.2-1.0 mg/dL (0.2-1.0); WBC URINE 3 /hpf (0-5)
--- NOTE | 2017-01-17 15:19 | PN ---
DATE: 01/17/2017 SUBJECTIVE: The patient seen and examined. Interim events noted. The patient was seen for Dr. Templeton while he is away and case was discussed with drying machine operator. The patient remains in Intensive Care Unit, on a ventilator, not able to provide informative history or review of systems. No specific issue reported by nursing staff. PHYSICAL EXAMINATION: GENERAL: The patient is orally intubated, on mechanical ventilation via endotracheal tube, tolerating current vent setting without any acute respiratory distress. VITAL SIGNS: Temperature 97, pulse 73, respiration 19, blood pressure 107/74, saturations 100%. HEENT: Tracheal tube is in good position. HEART: S1 and S2, normal and regular. LUNGS: Good bilateral air exchange. Occasional transmitted sounds. ABDOMEN: Soft and nontender. EXTREMITIES: No calf swelling. No tenderness. No acute ischemia. CENTRAL NERVOUS SYSTEM: Essentially unchanged. DIAGNOSTIC DATA: Available diagnostic data reviewed. WBC 6.3, hemoglobin 7.5, hematocrit 23.3, platelet 212; pH 7.48, pO2 of 158, pCO2 of 31.9, saturation 99%. Sodium 139, potassium 3.7, chloride 99, bicarbonate 30, BUN 47, and creatinine 1.5. Telemetry monitoring does not reveal significant arrhythmia. Sputum culture is pending. ASSESSMENT AND PLAN: Heater Operator Helper intervention noted and appreciated. Plan as ordered. Case and plan discussed with drying machine operator. Kenny Lechuga MD
[2017-01-18] MEDS: methylPREDNISolone 40 MG in Sodium Chloride 0.9% 50 ML IVPB SCH ×3 (00:50→16:27)
[2017-01-18 05:41] LABS: ABG ALLEN TEST YES; ABG MECHANICAL RATE 18; ARTERIAL BLOOD GAS HCO3 30.2 mmol/L (21-28); ARTERIAL BLOOD GAS MODE A/C; ARTERIAL BLOOD GAS O2 CAPACITY 11.1 mL/dL (16-24); ARTERIAL BLOOD GAS O2 CONTENT 11.1 ML/dL (15-23); ARTERIAL BLOOD GAS PO2 197 mm/Hg (80-100); ARTERIAL BLOOD HGB O2 SAT 97.5 % (95.0-98.0); ATERIAL BLOOD GAS PEEP 5; CARBOXYHEMOGLOBIN 0.5 % (0.5-1.5); HHB 0.3 % (0.0-5.0); METHEMOGLOBIN 1.7 % (0.0-3.0)
[2017-01-18] MEDS: Insulin Regular 100 units/ml SC SCH ×4 (06:43→22:20)
[2017-01-18 06:50] LABS: HEMATOCRIT 22.3 % (34.0-47.0); MEAN CORPUSCULAR HEMOGLOBIN 30.2 pg (27.0-31.0); MEAN CORPUSCULAR HGB CONC 32.8 g/dL (33.0-37.0); RED CELL DISTRIBUTION WIDTH 19.1 % (11.5-14.5); WHITE BLOOD COUNT 6.8 K/uL (4.8-10.8)
[2017-01-18 07:06] LABS: ALB/GLOB RATIO 0.8 (1.0-2.1); BILIRUBIN,TOTAL 0.2 mg/dl (0.2-1.3); CALCIUM 8.1 mg/dL (8.4-10.2); POTASSIUM 3.2 MMOL/L (3.6-5.0); TOTAL PROTEIN 5.8 G/DL (6.3-8.2)
--- NOTE | 2017-01-18 07:23 | CP.CCUPN ---
CCU Subjective - Physician Review Events Since Last Encounter (Free Text): 01/18/17 The patient was Seen/interviewed and examined by me at the bedside during ICU round, Medical records reviewed and Management issues were discussed and formulated with the house staff. Events reviewed Patient awake, oriented, follow commands. Reintubated 01/16 Orally intubated, PRVC 37881/40% PEEP-5 Off sedation Comfortable, no distress. Pt placed on CPAP trial with PS of 15, Fio2 decreased to 40% Tolerating PSV so far Adequate saturation, and tidal volume Minimal Resp secretions Afebrile. Last 24H I&O 1640/900 AM Labs with improved renal function 47/1.5--> 45/1.4 and H/H DROP 7.5/23---> 7.3/22.3 CXR showed improved lung aeration with persistent small pleural effision Restarted tube feedings CCU Objective - Vital Signs / Intake & Output Vital Signs (Last 4 hours): Vital Signs Temp Pulse Resp BP Pulse Ox 01/18/17 06:00 67 19 127/88 100 01/18/17 04:00 98.5 F 89 19 125/84 100 Intake and Output (Last 8hrs): Intake & Output 01/17/17 01/18/17 01/18/17 22:59 06:59 14:59 Intake Total 630 440 Output Total 400 500 Balance 230 -60 Intake: Intake, Piggyback 150 Tube Feeding 280 240 Free Water Flush 200 200 Output: Urine 400 500 Urethral (Atkins) 400 500 - Physical Exam Head: Positive for: Normocephalic Pupils: Positive for: PERRL Extroacular Muscles: Positive for: EOMI Conjunctiva: Positive for: Normal. Negative for: Icteric Mouth: Positive for: Moist Mucous Membranes Neck: Positive for: JVD. Negative for: Meningeal Signs Respiratory/Chest: Positive for: Decreased Breath Sounds, Rales. Negative for: Accessory Muscle Use, Wheezes Cardiovascular: Positive for: Irregular Rhythm. Negative for: Murmurs, Rub Abdomen: Positive for: Normal Bowel Sounds, Other (PEG intact). Negative for: Tenderness, Distention Lower Extremity: Positive for: NORMAL PULSES. Negative for: CALF TENDERNESS, Cyanosis Neurological: Positive for: Other (on ventilator) Skin: Positive for: Warm. Negative for: Rashes Psychiatric: Positive for: Alert - Medications Active Medications: Active Medications Generic Name Dose Route Start Last Admin Trade Name Freq PRN Reason Stop Dose Admin Acetaminophen 650 mg 01/10/17 08:40 01/10/17 09:00 Tylenol 650mg/20.3ml Solution Ud PO 650 mg Q6 PRN Administration fever Acetazolamide 250 mg 01/16/17 09:00 01/17/17 08:20 Diamox 500 Mg Inj IV 01/19/17 09:01 250 mg DAILY LINA Administration Albuterol/Ipratropium 3 ml 01/14/17 13:58 01/14/17 15:40 Duoneb 3 Mg/0.5 Mg (3 Ml) Ud INH 3 ml RQ6 PRN Administration Shortness of Breath Famotidine 20 mg 01/16/17 21:00 01/17/17 20:21 Pepcid PO 20 mg Q12 LINA Administration Methylprednisolone 40 mg/ 50 mls @ 100 mls/hr 01/14/17 17:00 01/18/17 00:50 Sodium Chloride IVPB 100 mls/hr Q8 LINA Administration Piperacillin Sod/Tazobactam 100 mls @ 100 mls/hr 01/15/17 04:00 01/18/17 04: 24 Sod 2.25 gm/ Sodium Chloride IVPB 100 mls/hr Q6 LINA Administration Insulin Human Regular 0 units 01/16/17 11:48 01/18/17 06:43 Humulin R SC 3 unit ACCU-CHECK LINA Administration Protocol Rivaroxaban 15 mg 01/16/17 17:00 01/17/17 16:07 Xarelto PO 15 mg DAILY@1700 LINA Administration Protocol - Patient Studies Lab Studies: Microbiology Studies 01/16/17 14:00 Gram Stain - Final Trachasp Sputum Culture - Preliminary No growth. Lab Studies 01/18/17 01/18/17 01/18/17 Range/Units 06:30 05:36 05:26 WBC 6.8 (4.8-10.8) K/uL RBC 2.43 L (3.80-5.20) Mil/uL Hgb 7.3 L (12.0-16.0) g/dL Hct 22.3 L (34.0-47.0) % MCV 92.0 (81.0-99.0) fl MCH 30.2 (27.0-31.0) pg MCHC 32.8 L (33.0-37.0) g/dL RDW 19.1 H (11.5-14.5) % Plt Count 220 (130-400) K/uL pCO2 39 (35-45) mm/Hg pO2 197 H (80-100) mm/Hg HCO3 30.2 H (21-28) mmol/L ABG pH 7.50 H (7.35-7.45) ABG Total CO2 31.6 H (22-28) mmol/L ABG O2 Saturation 99.7 H (95-98) % ABG O2 Content 11.1 L (15-23) ML/dL ABG Base Excess 6.7 H (-2.0-3.0) mmol/L ABG Hemoglobin 7.7 L (11.7-17.4) g/dL ABG Carboxyhemoglobin 0.5 (0.5-1.5) % POC ABG HHb (Measured) 0.3 (0.0-5.0) % ABG Methemoglobin 1.7 (0.0-3.0) % ABG O2 Capacity 11.1 L (16-24) mL/dL Rakan Test Yes A-a O2 Difference 182.0 mm/Hg Hgb O2 Saturation 97.5 (95.0-98.0) % Vent Mode A/c Mechanical Rate 18 FiO2 60.0 % Tidal Volume 380 PEEP 5 Sodium (132-148) mmol/l Potassium (3.6-5.0) MMOL/L Chloride (98-107) mmol/L Carbon Dioxide (22-30) mmol/L Anion Gap (10-20) BUN (7-17) mg/dl Creatinine (0.7-1.2) mg/dL Est GFR ( Amer) Est GFR (Non-Af Amer) POC Glucose (mg/dL) 233 H (65-110) mg/dL Random Glucose (65-105) mg/dL Calcium (8.4-10.2) mg/dL Total Bilirubin (0.2-1.3) mg/dl AST (14-36) U/L ALT (9-52) U/L Alkaline Phosphatase (38-126) U/L Total Protein (6.3-8.2) G/DL Albumin (3.5-5.0) g/dL Globulin (2.2-3.9) gm/dL Albumin/Globulin Ratio (1.0-2.1) Urine Color (YELLOW) Urine Clarity (Clear) Urine pH (5.0-8.0) Ur Specific [place] (1.003-1.030) Urine Protein (NEGATIVE) mg/dL Urine Glucose (UA) (Normal) mg/dL Urine Ketones (NEGATIVE) mg/dL Urine Blood (NEGATIVE) Urine Nitrate (NEGATIVE) Urine Bilirubin (NEGATIVE) Urine Urobilinogen (0.2-1.0) mg/dL Ur Leukocyte Esterase (Negative) Nabeel/uL Urine RBC (Auto) (0-3) /hpf Urine Microscopic WBC (0-5) /hpf Ur Yeast w Hyphae (NEGATIVE) /lpf Urine Yeast (Budding) (NEGATIVE) /hpf 01/18/17 01/17/17 01/17/17 Range/Units 04:00 22:29 16:01 WBC (4.8-10.8) K/uL RBC (3.80-5.20) Mil/uL Hgb (12.0-16.0) g/dL Hct (34.0-47.0) % MCV (81.0-99.0) fl MCH (27.0-31.0) pg MCHC (33.0-37.0) g/dL RDW (11.5-14.5) % Plt Count (130-400) K/uL pCO2 (35-45) mm/Hg pO2 (80-100) mm/Hg HCO3 (21-28) mmol/L ABG pH (7.35-7.45) ABG Total CO2 (22-28) mmol/L ABG O2 Saturation (95-98) % ABG O2 Content (15-23) ML/dL ABG Base Excess (-2.0-3.0) mmol/L ABG Hemoglobin (11.7-17.4) g/dL ABG Carboxyhemoglobin (0.5-1.5) % POC ABG HHb (Measured) (0.0-5.0) % ABG Methemoglobin (0.0-3.0) % ABG O2 Capacity (16-24) mL/dL Rakan Test A-a O2 Difference mm/Hg Hgb O2 Saturation (95.0-98.0) % Vent Mode Mechanical Rate FiO2 % Tidal Volume PEEP Sodium 139 (132-148) mmol/l Potassium 3.2 L (3.6-5.0) MMOL/L Chloride 101 (98-107) mmol/L Carbon Dioxide 26 (22-30) mmol/L Anion Gap 15 (10-20) BUN 45 H (7-17) mg/dl Creatinine 1.4 H (0.7-1.2) mg/dL Est GFR ( Amer) 45 Est GFR (Non-Af Amer) 37 POC Glucose (mg/dL) 285 H 298 H (65-110) mg/dL Random Glucose 182 H (65-105) mg/dL Calcium 8.1 L (8.4-10.2) mg/dL Total Bilirubin 0.2 (0.2-1.3) mg/dl AST 18 (14-36) U/L ALT 33 (9-52) U/L Alkaline Phosphatase 69 (38-126) U/L Total Protein 5.8 L (6.3-8.2) G/DL Albumin 2.5 L (3.5-5.0) g/dL Globulin 3.3 (2.2-3.9) gm/dL Albumin/Globulin Ratio 0.8 L (1.0-2.1) Urine Color (YELLOW) Urine Clarity (Clear) Urine pH (5.0-8.0) Ur Specific [place] (1.003-1.030) Urine Protein (NEGATIVE) mg/dL Urine Glucose (UA) (Normal) mg/dL Urine Ketones (NEGATIVE) mg/dL Urine Blood (NEGATIVE) Urine Nitrate (NEGATIVE) Urine Bilirubin (NEGATIVE) Urine Urobilinogen (0.2-1.0) mg/dL Ur Leukocyte Esterase (Negative) Nabeel/uL Urine RBC (Auto) (0-3) /hpf Urine Microscopic WBC (0-5) /hpf Ur Yeast w Hyphae (NEGATIVE) /lpf Urine Yeast (Budding) (NEGATIVE) /hpf 01/17/17 01/17/17 Range/Units 12:50 10:13 WBC (4.8-10.8) K/uL RBC (3.80-5.20) Mil/uL Hgb (12.0-16.0) g/dL Hct (34.0-47.0) % MCV (81.0-99.0) fl MCH (27.0-31.0) pg MCHC (33.0-37.0) g/dL RDW (11.5-14.5) % Plt Count (130-400) K/uL pCO2 (35-45) mm/Hg pO2 (80-100) mm/Hg HCO3 (21-28) mmol/L ABG pH (7.35-7.45) ABG Total CO2 (22-28) mmol/L ABG O2 Saturation (95-98) % ABG O2 Content (15-23) ML/dL ABG Base Excess (-2.0-3.0) mmol/L ABG Hemoglobin (11.7-17.4) g/dL ABG Carboxyhemoglobin (0.5-1.5) % POC ABG HHb (Measured) (0.0-5.0) % ABG Methemoglobin (0.0-3.0) % ABG O2 Capacity (16-24) mL/dL Rakan Test A-a O2 Difference mm/Hg Hgb O2 Saturation (95.0-98.0) % Vent Mode Mechanical Rate FiO2 % Tidal Volume PEEP Sodium (132-148) mmol/l Potassium (3.6-5.0) MMOL/L Chloride (98-107) mmol/L Carbon Dioxide (22-30) mmol/L Anion Gap (10-20) BUN (7-17) mg/dl Creatinine (0.7-1.2) mg/dL Est GFR ( Amer) Est GFR (Non-Af Amer) POC Glucose (mg/dL) 167 H (65-110) mg/dL Random Glucose (65-105) mg/dL Calcium (8.4-10.2) mg/dL Total Bilirubin (0.2-1.3) mg/dl AST (14-36) U/L ALT (9-52) U/L Alkaline Phosphatase (38-126) U/L Total Protein (6.3-8.2) G/DL Albumin (3.5-5.0) g/dL Globulin (2.2-3.9) gm/dL Albumin/Globulin Ratio (1.0-2.1) Urine Color Yellow (YELLOW) Urine Clarity Slighty-cloudy (Clear) Urine pH 7.0 (5.0-8.0) Ur Specific [place] 1.016 (1.003-1.030) Urine Protein 30 (NEGATIVE) mg/dL Urine Glucose (UA) Neg (Normal) mg/dL Urine Ketones Negative (NEGATIVE) mg/dL Urine Blood Small (NEGATIVE) Urine Nitrate Negative (NEGATIVE) Urine Bilirubin Negative (NEGATIVE) Urine Urobilinogen 0.2-1.0 (0.2-1.0) mg/dL Ur Leukocyte Esterase Mod (Negative) Nabeel/uL Urine RBC (Auto) 19 H (0-3) /hpf Urine Microscopic WBC 3 (0-5) /hpf Ur Yeast w Hyphae Rare H (NEGATIVE) /lpf Urine Yeast (Budding) Few H (NEGATIVE) /hpf Laboratory Results - last 24 hr 01/17/17 01/17/17 01/17/17 10:13 12:50 16:01 WBC RBC Hgb Hct MCV MCH MCHC RDW Plt Count pCO2 pO2 HCO3 ABG pH ABG Total CO2 ABG O2 Saturation ABG O2 Content ABG Base Excess ABG Hemoglobin ABG Carboxyhemoglobin POC ABG HHb (Measured) ABG Methemoglobin ABG O2 Capacity Rakan Test A-a O2 Difference Hgb O2 Saturation Vent Mode Mechanical Rate FiO2 Tidal Volume PEEP Sodium Potassium Chloride Carbon Dioxide Anion Gap BUN Creatinine Est GFR ( Amer) Est GFR (Non-Af Amer) POC Glucose (mg/dL) 167 H 298 H Random Glucose Calcium Total Bilirubin AST ALT Alkaline Phosphatase Total Protein Albumin Globulin Albumin/Globulin Ratio Urine Color Yellow Urine Clarity Slighty-cloudy Urine pH 7.0 Ur Specific [place] 1.016 Urine Protein 30 Urine Glucose (UA) Neg Urine Ketones Negative Urine Blood Small Urine Nitrate Negative Urine Bilirubin Negative Urine Urobilinogen 0.2-1.0 Ur Leukocyte Esterase Mod Urine RBC (Auto) 19 H Urine Microscopic WBC 3 Ur Yeast w Hyphae Rare H Urine Yeast (Budding) Few H 01/17/17 01/18/17 01/18/17 22:29 04:00 05:26 WBC RBC Hgb Hct MCV MCH MCHC RDW Plt Count pCO2 pO2 HCO3 ABG pH ABG Total CO2 ABG O2 Saturation ABG O2 Content ABG Base Excess ABG Hemoglobin ABG Carboxyhemoglobin POC ABG HHb (Measured) ABG Methemoglobin ABG O2 Capacity Rakan Test A-a O2 Difference Hgb O2 Saturation Vent Mode Mechanical Rate FiO2 Tidal Volume PEEP Sodium 139 Potassium 3.2 L Chloride 101 Carbon Dioxide 26 Anion Gap 15 BUN 45 H Creatinine 1.4 H Est GFR ( Amer) 45 Est GFR (Non-Af Amer) 37 POC Glucose (mg/dL) 285 H 233 H Random Glucose 182 H Calcium 8.1 L Total Bilirubin 0.2 AST 18 ALT 33 Alkaline Phosphatase 69 Total Protein 5.8 L Albumin 2.5 L Globulin 3.3 Albumin/Globulin Ratio 0.8 L Urine Color Urine Clarity Urine pH Ur Specific [place] Urine Protein Urine Glucose (UA) Urine Ketones Urine Blood Urine Nitrate Urine Bilirubin Urine Urobilinogen Ur Leukocyte Esterase Urine RBC (Auto) Urine Microscopic WBC Ur Yeast w Hyphae Urine Yeast (Budding) 01/18/17 01/18/17 05:36 06:30 WBC 6.8 RBC 2.43 L Hgb 7.3 L Hct 22.3 L MCV 92.0 MCH 30.2 MCHC 32.8 L RDW 19.1 H Plt Count 220 pCO2 39 pO2 197 H HCO3 30.2 H ABG pH 7.50 H ABG Total CO2 31.6 H ABG O2 Saturation 99.7 H ABG O2 Content 11.1 L ABG Base Excess 6.7 H ABG Hemoglobin 7.7 L ABG Carboxyhemoglobin 0.5 POC ABG HHb (Measured) 0.3 ABG Methemoglobin 1.7 ABG O2 Capacity 11.1 L Rakan Test Yes A-a O2 Difference 182.0 Hgb O2 Saturation 97.5 Vent Mode A/c Mechanical Rate 18 FiO2 60.0 Tidal Volume 380 PEEP 5 Sodium Potassium Chloride Carbon Dioxide Anion Gap BUN Creatinine Est GFR ( Amer) Est GFR (Non-Af Amer) POC Glucose (mg/dL) Random Glucose Calcium Total Bilirubin AST ALT Alkaline Phosphatase Total Protein Albumin Globulin Albumin/Globulin Ratio Urine Color Urine Clarity Urine pH Ur Specific [place] Urine Protein Urine Glucose (UA) Urine Ketones Urine Blood Urine Nitrate Urine Bilirubin Urine Urobilinogen Ur Leukocyte Esterase Urine RBC (Auto) Urine Microscopic WBC Ur Yeast w Hyphae Urine Yeast (Budding) Fingerstick Blood Sugar Results: 233 Review of Systems - Review of Systems Systems not reviewed;Unavailable: Intubated Critical Care Progress Note - Ventilator Checklist Head of Bed 30 Degrees: Yes Daily Sedation Vacation: Yes Daily Assessment of Readiness to Wean: Yes Daily Spontaneous Breathing Trial: Yes PUD Prophalyxis: Yes DVT Prophylaxis: Yes Oral Care with Chlorhexidine Gluconate {CHG}: Yes - Nutrition Nutrition: Nutrition Category Date Time Status NPO Diet [DIET] Diets 01/18/17 Breakfast Active Assessment/Plan (1) Acute respiratory failure with hypercapnia Current Visit: Yes Status: Acute Comment: Acute respiratory failure secondary to HCAP, CHF and COPD Vent weaning in progress Daily CAT/SBT Continue nebulizer treatment Continue diuretics as needed Aggressive pulmonary toilet Maintain aspiration precautions GI/DVT PPX (2) HCAP (healthcare-associated pneumonia) Current Visit: Yes Status: Acute Comment: IV Piperacillin Sod/Tazobactam (3) Cardiac arrest Current Visit: Yes Status: Acute Comment: improved mental status, Patient awake, oriented, follow commands. Hyperkalemia on admission with K 6.8, normalized (4) Anemia Current Visit: No Status: Chronic Comment: No Evidanc of active bleeding, I U Packed RBC transfused today (5) Atrial fibrillation Current Visit: No Status: Chronic Comment: Continue Xarelto 15 mg PO DAILY (6) COPD (chronic obstructive pulmonary disease) Current Visit: No Status: Chronic Comment: Stable, no weezing, Continue BD nebs q 6h prn (7) Acute diastolic (congestive) heart failure Current Visit: No Status: Resolved (8) Acute renal failure (ARF) Current Visit: No Status: Resolved
[2017-01-18] MEDS ORDERED: Potassium Chloride 20 mEq/15 ml LIQ UD PEG ONE (10:45)
--- NOTE | 2017-01-18 12:13 | CP.PCM.PN ---
Subjective - Date & Time of Evaluation Date of Evaluation: 01/18/17 Time of Evaluation: 11:10 - Subjective Subjective: seen and examined on vent o: vss gen: intubated and sedated sclera: anicteric op: et tube neck :supple cv: +S1+s2 lungs: coarse bs abd: peg neuro: opens eyes to voice psych: flat skin: no rash Objective - Vital Signs/Intake and Output Vital Signs (last 24 hours): Temp Pulse Resp BP Pulse Ox 98.5 F 67 19 127/88 100 01/18/17 04:00 01/18/17 06:00 01/18/17 06:00 01/18/17 06:00 01/18/17 06:00 Intake and Output: 01/18/17 01/18/17 06:59 18:59 Intake Total 700 200 Output Total 500 Balance 200 200 - Medications Medications: Current Medications Acetaminophen (Tylenol 650mg/20.3ml Solution Ud) 650 mg PO Q6 PRN PRN Reason: fever Last Admin: 01/10/17 09:00 Dose: 650 mg Acetazolamide (Diamox 500 Mg Inj) 250 mg IV DAILY [facility] Stop: 01/19/17 09:01 Last Admin: 01/18/17 09:14 Dose: 250 mg Albuterol/Ipratropium (Duoneb 3 Mg/0.5 Mg (3 Ml) Ud) 3 ml INH RQ6 PRN PRN Reason: Shortness of Breath Last Admin: 01/14/17 15:40 Dose: 3 ml Famotidine (Pepcid) 20 mg PO Q12 [facility] Last Admin: 01/18/17 09:17 Dose: 20 mg Methylprednisolone 40 mg/ (Sodium Chloride) 50 mls @ 100 mls/hr IVPB Q8 [facility] Last Admin: 01/18/17 09:17 Dose: 100 mls/hr Piperacillin Sod/Tazobactam (Sod 2.25 gm/ Sodium Chloride) 100 mls @ 100 mls/ hr IVPB Q6 [facility] Last Admin: 01/18/17 11:11 Dose: 100 mls/hr Insulin Human Regular (Humulin R) 0 units SC ACCU-CHECK LINA PRN Reason: Protocol Last Admin: 01/18/17 06:43 Dose: 3 unit Rivaroxaban (Xarelto) 15 mg PO DAILY@1700 LINA PRN Reason: Protocol Last Admin: 01/17/17 16:07 Dose: 15 mg - Labs Labs: 01/18/17 06:30 01/18/17 04:00 PT 11.8 Seconds (9.8-13.1) 01/10/17 05:30 INR 1.1 (0.9-1.2) 01/10/17 05:30 APTT 30.3 Seconds (25.6-37.1) 01/10/17 05:30 Assessment and Plan - Assessment and Plan (Free Text) Assessment: ARF/ Anemia/ Hypoxic respiratory failure/ Pneumonia/Afib /hypokalemia -cr stable today, slightly improved -abx for pna -40 kcl ordered -vent weaning per primary team consider prbc
--- NOTE | 2017-01-18 13:02 | RAD ---
HISTORY: ETT placement COMPARISON: Chest x-ray performed 01/17/17 TECHNIQUE: Chest, one view. FINDINGS: Endotracheal tube terminates approximately 1.7 cm above the collin. LUNGS: Stable appearing multifocal infiltrates. Please note that chest x-ray has limited sensitivity for the detection of pulmonary masses. PLEURA: Small [id number]-right pleural effusions. No definite pneumothorax . CARDIOVASCULAR: Cardiomegaly. OSSEOUS STRUCTURES: Osseous demineralization. Degenerative changes. VISUALIZED UPPER ABDOMEN: Unremarkable. OTHER FINDINGS: None. IMPRESSION: Endotracheal tube terminates approximately 1.7 cm above the collin. Stable appearing multifocal pulmonary infiltrates. Small [id number]-right pleural effusions. Cardiomegaly.
--- NOTE | 2017-01-18 13:35 | PN ---
DATE: 01/18/2017ye SUBJECTIVE: The patient is seen and examined. The patient is seen for Dr. Templeton while he is away. The patient remains in the Intensive Care Unit, on a ventilator, awake, responsive, feeding well till yesterday and at night as the patient's abdomen was tend to be a bit distended. The patient denies any abdominal pain, nausea, vomiting, diarrhea. No chest pain or shortness of breath. PHYSICAL EXAMINATION GENERAL: The patient is in no acute distress. VITAL SIGNS: Stable. HEENT: ET tube is in good position and functioning. HEART: S1 and S2, normal and regular. LUNGS: Good bilateral air exchange. ABDOMEN: Soft, slightly distended, but nontender. No organomegaly. No fluids. No sign of acute abdomen. No guarding. No rigidity. No rebound. Bowel sounds are present and normal. EXTREMITIES: No edema. No calf swelling. No tenderness. No acute ischemia. CENTRAL NERVOUS SYSTEM: Exam is essentially unchanged. DIAGNOSTIC DATA: Available diagnostic data reviewed. Telemetry monitoring does not reveal significant arrhythmias. Consults noted and appreciated. ASSESSMENT AND PLAN: Plan as ordered. Kenny Lechuga MD
[2017-01-19] MEDS: methylPREDNISolone 40 MG in Sodium Chloride 0.9% 50 ML IVPB SCH ×3 (01:27→20:41)
[2017-01-19 04:41] LABS: ABG ALLEN TEST YES; ABG MECHANICAL RATE 380; ARTERIAL BLOOD GAS HCO3 29.5 mmol/L (21-28); ARTERIAL BLOOD GAS MODE A/C; ARTERIAL BLOOD GAS O2 CAPACITY 10.8 mL/dL (16-24); ARTERIAL BLOOD GAS O2 CONTENT 10.9 ML/dL (15-23); ARTERIAL BLOOD GAS PH 7.48 (7.35-7.45); ARTERIAL BLOOD GAS PO2 125 mm/Hg (80-100); ARTERIAL BLOOD HGB O2 SAT 97.2 % (95.0-98.0); ATERIAL BLOOD GAS PEEP 5; CARBOXYHEMOGLOBIN 1.6 % (0.5-1.5); HHB -0.5 % (0.0-5.0); METHEMOGLOBIN 1.8 % (0.0-3.0)
[2017-01-19 05:13] LABS: HEMATOCRIT 23.6 % (34.0-47.0); MEAN CORPUSCULAR HEMOGLOBIN 30.4 pg (27.0-31.0); MEAN CORPUSCULAR HGB CONC 32.7 g/dL (33.0-37.0); RED CELL DISTRIBUTION WIDTH 20.1 % (11.5-14.5); WHITE BLOOD COUNT 8.4 K/uL (4.8-10.8)
[2017-01-19 05:24] LABS: ALB/GLOB RATIO 0.8 (1.0-2.1); BILIRUBIN,TOTAL 0.2 mg/dl (0.2-1.3); CALCIUM 8.3 mg/dL (8.4-10.2); POTASSIUM 3.5 MMOL/L (3.6-5.0); TOTAL PROTEIN 5.7 G/DL (6.3-8.2)
[2017-01-19] MEDS: Insulin Regular 100 units/ml SC SCH ×4 (06:12→23:00)
--- NOTE | 2017-01-19 08:31 | RAD ---
HISTORY: ETT placement COMPARISON: Portable chest 01/18/2017. FINDINGS: Endotracheal tube appears unchanged in position. LUNGS: Multifocal infiltrates are again appreciate bilaterally with question of mild increase in opacity at the right base. Left retrocardiac basilar opacity remains the most dense area of airspace disease. PLEURA: Limited left pleural effusion not excluded. None is seen the right. No pneumothorax bilaterally. CARDIOVASCULAR: Stable mild cardiomegaly. OSSEOUS STRUCTURES: No significant abnormalities. VISUALIZED UPPER ABDOMEN: Normal. OTHER FINDINGS: None. IMPRESSION: Bilateral multifocal infiltrates are again identified, slightly worsened at the right base but otherwise unchanged. Trace of pleural effusion not excluded. Stable cardiomegaly is noted.
--- NOTE | 2017-01-19 09:07 | CP.CCUPN ---
CCU Subjective - Physician Review Events Since Last Encounter (Free Text): 01/19/17 13:00 The patient was Seen/interviewed and examined by me at the bedside during ICU round, Medical records reviewed and Management issues were discussed and formulated with the house staff. Events reviewed Acute respiratory failure secondary to Pneumonia, CHF/COPD and Sepsis Reintubated 01/16 Orally intubated, PRVC 46345/40% PEEP-5 Off sedation Patient awake, oriented, follow commands. Comfortable, no distress. Pt placed on CPAP trial with PS of 15, Fio2 decreased to 40% at 11AM Tolerating PSV so far B/L soft restrains for safty an to prevent her from pulling the ET tube Adequate saturation, and tidal volume Minimal whitish Resp secretions Afebrile. Last 24H I&O 1285/850 AM Labs with improved renal function 47/1.5--> 45/1.4--> 40/1.3 and H/H DROP 7.5/23---> 7.3/22.3-->7.7/23.6 CXR showed improved lung aeration with persistent small pleural effision Restarted tube feedings and she tolerating Will decrease IV Methylprednisolone to 40 mg IVPB Q12H CCU Objective - Vital Signs / Intake & Output Vital Signs (Last 4 hours): Vital Signs Temp Pulse Resp BP Pulse Ox 01/19/17 08:00 97.3 F L 58 L 24 113/76 100 01/19/17 06:00 78 19 138/77 100 Intake and Output (Last 8hrs): Intake & Output 01/18/17 01/19/17 01/19/17 22:59 06:59 14:59 Intake Total 560 520 Output Total 450 400 Balance 110 120 Intake: Intake, Piggyback 150 Tube Feeding 310 320 Free Water Flush 100 200 Output: Urine 450 400 Urethral (Atkins) 450 400 Other: # Bowel Movements 1 1 - Physical Exam Head: Positive for: Normocephalic Pupils: Positive for: PERRL Extroacular Muscles: Positive for: EOMI Conjunctiva: Positive for: Normal. Negative for: Icteric Mouth: Positive for: Moist Mucous Membranes Neck: Positive for: JVD. Negative for: Meningeal Signs Respiratory/Chest: Positive for: Decreased Breath Sounds, Rales. Negative for: Accessory Muscle Use, Wheezes Cardiovascular: Positive for: Irregular Rhythm. Negative for: Murmurs, Rub Abdomen: Positive for: Normal Bowel Sounds, Other (PEG intact). Negative for: Tenderness, Distention Lower Extremity: Positive for: NORMAL PULSES. Negative for: CALF TENDERNESS, Cyanosis Neurological: Positive for: Other (on ventilator) Skin: Positive for: Warm. Negative for: Rashes Psychiatric: Positive for: Alert - Medications Active Medications: Active Medications Generic Name Dose Route Start Last Admin Trade Name Freq PRN Reason Stop Dose Admin Acetaminophen 650 mg 01/10/17 08:40 01/10/17 09:00 Tylenol 650mg/20.3ml Solution Ud PO 650 mg Q6 PRN Administration fever Albuterol/Ipratropium 3 ml 01/14/17 13:58 01/14/17 15:40 Duoneb 3 Mg/0.5 Mg (3 Ml) Ud INH 3 ml RQ6 PRN Administration Shortness of Breath Famotidine 20 mg 01/16/17 21:00 01/19/17 08:44 Pepcid PO 20 mg Q12 LINA Administration Methylprednisolone 40 mg/ 50 mls @ 100 mls/hr 01/14/17 17:00 01/19/17 01:27 Sodium Chloride IVPB 100 mls/hr Q8 LINA Administration Piperacillin Sod/Tazobactam 100 mls @ 100 mls/hr 01/15/17 04:00 01/19/17 03: 39 Sod 2.25 gm/ Sodium Chloride IVPB 100 mls/hr Q6 LINA Administration Insulin Human Regular 0 units 01/16/17 11:48 01/19/17 06:12 Humulin R SC Not Given ACCU-CHECK [facility] Protocol Rivaroxaban 15 mg 01/16/17 17:00 01/18/17 16:27 Xarelto PO 15 mg DAILY@1700 LINA Administration Protocol - Patient Studies Lab Studies: Microbiology Studies 01/16/17 14:00 Gram Stain - Final Trachasp Sputum Culture - Final NORMAL ORAL ROLDAN Lab Studies 01/19/17 01/19/17 01/19/17 Range/Units 06:08 04:45 04:45 WBC 8.4 (4.8-10.8) K/uL RBC 2.53 L (3.80-5.20) Mil/uL Hgb 7.7 L (12.0-16.0) g/dL Hct 23.6 L (34.0-47.0) % MCV 93.0 (81.0-99.0) fl MCH 30.4 (27.0-31.0) pg MCHC 32.7 L (33.0-37.0) g/dL RDW 20.1 H (11.5-14.5) % Plt Count 247 (130-400) K/uL pCO2 (35-45) mm/Hg pO2 (80-100) mm/Hg HCO3 (21-28) mmol/L ABG pH (7.35-7.45) ABG Total CO2 (22-28) mmol/L ABG O2 Saturation (95-98) % ABG O2 Content (15-23) ML/dL ABG Base Excess (-2.0-3.0) mmol/L ABG Hemoglobin (11.7-17.4) g/dL ABG Carboxyhemoglobin (0.5-1.5) % POC ABG HHb (Measured) (0.0-5.0) % ABG Methemoglobin (0.0-3.0) % ABG O2 Capacity (16-24) mL/dL Rakan Test A-a O2 Difference mm/Hg Hgb O2 Saturation (95.0-98.0) % Vent Mode Mechanical Rate FiO2 % Tidal Volume PEEP Sodium 140 (132-148) mmol/l Potassium 3.5 L (3.6-5.0) MMOL/L Chloride 104 (98-107) mmol/L Carbon Dioxide 26 (22-30) mmol/L Anion Gap 14 (10-20) BUN 40 H (7-17) mg/dl Creatinine 1.3 H (0.7-1.2) mg/dL Est GFR ( Amer) 49 Est GFR (Non-Af Amer) 40 POC Glucose (mg/dL) 137 H (65-110) mg/dL Random Glucose 139 H (65-105) mg/dL Calcium 8.3 L (8.4-10.2) mg/dL Total Bilirubin 0.2 (0.2-1.3) mg/dl AST 21 (14-36) U/L ALT 32 (9-52) U/L Alkaline Phosphatase 66 (38-126) U/L Total Protein 5.7 L (6.3-8.2) G/DL Albumin 2.5 L (3.5-5.0) g/dL Globulin 3.2 (2.2-3.9) gm/dL Albumin/Globulin Ratio 0.8 L (1.0-2.1) 01/19/17 01/18/17 01/18/17 Range/Units 04:38 22:19 16:32 WBC (4.8-10.8) K/uL RBC (3.80-5.20) Mil/uL Hgb (12.0-16.0) g/dL Hct (34.0-47.0) % MCV (81.0-99.0) fl MCH (27.0-31.0) pg MCHC (33.0-37.0) g/dL RDW (11.5-14.5) % Plt Count (130-400) K/uL pCO2 40 (35-45) mm/Hg pO2 125 H (80-100) mm/Hg HCO3 29.5 H (21-28) mmol/L ABG pH 7.48 H (7.35-7.45) ABG Total CO2 31.0 H (22-28) mmol/L ABG O2 Saturation 100.5 H (95-98) % ABG O2 Content 10.9 L (15-23) ML/dL ABG Base Excess 5.8 H (-2.0-3.0) mmol/L ABG Hemoglobin 7.8 L (11.7-17.4) g/dL ABG Carboxyhemoglobin 1.6 H (0.5-1.5) % POC ABG HHb (Measured) -0.5 L (0.0-5.0) % ABG Methemoglobin 1.8 (0.0-3.0) % ABG O2 Capacity 10.8 L (16-24) mL/dL Rakan Test Yes A-a O2 Difference 110.0 mm/Hg Hgb O2 Saturation 97.2 (95.0-98.0) % Vent Mode A/c Mechanical Rate 380 FiO2 40.0 % Tidal Volume 18 PEEP 5 Sodium (132-148) mmol/l Potassium (3.6-5.0) MMOL/L Chloride (98-107) mmol/L Carbon Dioxide (22-30) mmol/L Anion Gap (10-20) BUN (7-17) mg/dl Creatinine (0.7-1.2) mg/dL Est GFR ( Amer) Est GFR (Non-Af Amer) POC Glucose (mg/dL) 197 H 167 H (65-110) mg/dL Random Glucose (65-105) mg/dL Calcium (8.4-10.2) mg/dL Total Bilirubin (0.2-1.3) mg/dl AST (14-36) U/L ALT (9-52) U/L Alkaline Phosphatase (38-126) U/L Total Protein (6.3-8.2) G/DL Albumin (3.5-5.0) g/dL Globulin (2.2-3.9) gm/dL Albumin/Globulin Ratio (1.0-2.1) 01/18/17 Range/Units 12:23 WBC (4.8-10.8) K/uL RBC (3.80-5.20) Mil/uL Hgb (12.0-16.0) g/dL Hct (34.0-47.0) % MCV (81.0-99.0) fl MCH (27.0-31.0) pg MCHC (33.0-37.0) g/dL RDW (11.5-14.5) % Plt Count (130-400) K/uL pCO2 (35-45) mm/Hg pO2 (80-100) mm/Hg HCO3 (21-28) mmol/L ABG pH (7.35-7.45) ABG Total CO2 (22-28) mmol/L ABG O2 Saturation (95-98) % ABG O2 Content (15-23) ML/dL ABG Base Excess (-2.0-3.0) mmol/L ABG Hemoglobin (11.7-17.4) g/dL ABG Carboxyhemoglobin (0.5-1.5) % POC ABG HHb (Measured) (0.0-5.0) % ABG Methemoglobin (0.0-3.0) % ABG O2 Capacity (16-24) mL/dL Rakan Test A-a O2 Difference mm/Hg Hgb O2 Saturation (95.0-98.0) % Vent Mode Mechanical Rate FiO2 % Tidal Volume PEEP Sodium (132-148) mmol/l Potassium (3.6-5.0) MMOL/L Chloride (98-107) mmol/L Carbon Dioxide (22-30) mmol/L Anion Gap (10-20) BUN (7-17) mg/dl Creatinine (0.7-1.2) mg/dL Est GFR ( Amer) Est GFR (Non-Af Amer) POC Glucose (mg/dL) 176 H (65-110) mg/dL Random Glucose (65-105) mg/dL Calcium (8.4-10.2) mg/dL Total Bilirubin (0.2-1.3) mg/dl AST (14-36) U/L ALT (9-52) U/L Alkaline Phosphatase (38-126) U/L Total Protein (6.3-8.2) G/DL Albumin (3.5-5.0) g/dL Globulin (2.2-3.9) gm/dL Albumin/Globulin Ratio (1.0-2.1) Laboratory Results - last 24 hr 01/18/17 01/18/17 01/18/17 12:23 16:32 22:19 WBC RBC Hgb Hct MCV MCH MCHC RDW Plt Count pCO2 pO2 HCO3 ABG pH ABG Total CO2 ABG O2 Saturation ABG O2 Content ABG Base Excess ABG Hemoglobin ABG Carboxyhemoglobin POC ABG HHb (Measured) ABG Methemoglobin ABG O2 Capacity Rakan Test A-a O2 Difference Hgb O2 Saturation Vent Mode Mechanical Rate FiO2 Tidal Volume PEEP Sodium Potassium Chloride Carbon Dioxide Anion Gap BUN Creatinine Est GFR ( Amer) Est GFR (Non-Af Amer) POC Glucose (mg/dL) 176 H 167 H 197 H Random Glucose Calcium Total Bilirubin AST ALT Alkaline Phosphatase Total Protein Albumin Globulin Albumin/Globulin Ratio 01/19/17 01/19/17 01/19/17 04:38 04:45 04:45 WBC 8.4 RBC 2.53 L Hgb 7.7 L Hct 23.6 L MCV 93.0 MCH 30.4 MCHC 32.7 L RDW 20.1 H Plt Count 247 pCO2 40 pO2 125 H HCO3 29.5 H ABG pH 7.48 H ABG Total CO2 31.0 H ABG O2 Saturation 100.5 H ABG O2 Content 10.9 L ABG Base Excess 5.8 H ABG Hemoglobin 7.8 L ABG Carboxyhemoglobin 1.6 H POC ABG HHb (Measured) -0.5 L ABG Methemoglobin 1.8 ABG O2 Capacity 10.8 L Rakan Test Yes A-a O2 Difference 110.0 Hgb O2 Saturation 97.2 Vent Mode A/c Mechanical Rate 380 FiO2 40.0 Tidal Volume 18 PEEP 5 Sodium 140 Potassium 3.5 L Chloride 104 Carbon Dioxide 26 Anion Gap 14 BUN 40 H Creatinine 1.3 H Est GFR ( Amer) 49 Est GFR (Non-Af Amer) 40 POC Glucose (mg/dL) Random Glucose 139 H Calcium 8.3 L Total Bilirubin 0.2 AST 21 ALT 32 Alkaline Phosphatase 66 Total Protein 5.7 L Albumin 2.5 L Globulin 3.2 Albumin/Globulin Ratio 0.8 L 01/19/17 06:08 WBC RBC Hgb Hct MCV MCH MCHC RDW Plt Count pCO2 pO2 HCO3 ABG pH ABG Total CO2 ABG O2 Saturation ABG O2 Content ABG Base Excess ABG Hemoglobin ABG Carboxyhemoglobin POC ABG HHb (Measured) ABG Methemoglobin ABG O2 Capacity Rakan Test A-a O2 Difference Hgb O2 Saturation Vent Mode Mechanical Rate FiO2 Tidal Volume PEEP Sodium Potassium Chloride Carbon Dioxide Anion Gap BUN Creatinine Est GFR ( Amer) Est GFR (Non-Af Amer) POC Glucose (mg/dL) 137 H Random Glucose Calcium Total Bilirubin AST ALT Alkaline Phosphatase Total Protein Albumin Globulin Albumin/Globulin Ratio Fingerstick Blood Sugar Results: 137 Assessment/Plan (1) Acute respiratory failure with hypercapnia Current Visit: Yes Status: Acute Comment: Acute respiratory failure secondary to HCAP, CHF and COPD Vent weaning in progress Daily CAT/SBT IV antibiotics Will decrease IV Methylprednisolone to 40 mg IVPB Q12H Continue nebulizer treatment Continue diuretics as needed Aggressive pulmonary toilet Maintain aspiration precautions GI/DVT PPX (2) HCAP (healthcare-associated pneumonia) Current Visit: Yes Status: Acute Comment: IV Piperacillin Sod/Tazobactam (3) Cardiac arrest Current Visit: Yes Status: Acute Comment: improved mental status, Patient awake, oriented, follow commands. Hyperkalemia on admission with K 6.8, normalized (4) Anemia Current Visit: No Status: Chronic Comment: No Evidanc of active bleeding, I U Packed RBC transfused today (5) Atrial fibrillation Current Visit: No Status: Chronic Comment: Continue Xarelto 15 mg PO DAILY (6) COPD (chronic obstructive pulmonary disease) Current Visit: No Status: Chronic Comment: Stable, no weezing, Continue BD nebs q 6h prn (7) Acute diastolic (congestive) heart failure Current Visit: No Status: Resolved (8) Acute renal failure (ARF) Current Visit: No Status: Resolved
[2017-01-19 14:31] LABS: ABG ALLEN TEST YES; ARTERIAL BLOOD GAS HCO3 26.2 mmol/L (21-28); ARTERIAL BLOOD GAS O2 CAPACITY 12.4 mL/dL (16-24); ARTERIAL BLOOD GAS O2 CONTENT 12.2 ML/dL (15-23); ARTERIAL BLOOD GAS PH 7.26 (7.35-7.45); ARTERIAL BLOOD GAS PO2 91 mm/Hg (80-100); ARTERIAL BLOOD HGB O2 SAT 95.4 % (95.0-98.0); ATERIAL BLOOD GAS PEEP 5; CARBOXYHEMOGLOBIN 1.4 % (0.5-1.5); HHB 1.4 % (0.0-5.0); METHEMOGLOBIN 1.7 % (0.0-3.0)
[2017-01-20 05:24] LABS: HEMATOCRIT 24.8 % (34.0-47.0); MEAN CELL VOLUME 93.3 fl (81.0-99.0); MEAN CORPUSCULAR HEMOGLOBIN 30.7 pg (27.0-31.0); MEAN CORPUSCULAR HGB CONC 32.9 g/dL (33.0-37.0); RED CELL DISTRIBUTION WIDTH 19.7 % (11.5-14.5); WHITE BLOOD COUNT 9.6 K/uL (4.8-10.8)
[2017-01-20 05:25] LABS: ALB/GLOB RATIO 0.8 (1.0-2.1); BILIRUBIN,TOTAL 0.2 mg/dl (0.2-1.3); CALCIUM 8.3 mg/dL (8.4-10.2); POTASSIUM 3.4 MMOL/L (3.6-5.0); TOTAL PROTEIN 5.8 G/DL (6.3-8.2)
[2017-01-20 05:39] LABS: ABG ALLEN TEST YES; ABG MECHANICAL RATE 18; ARTERIAL BLOOD GAS HCO3 26.4 mmol/L (21-28); ARTERIAL BLOOD GAS MODE PRVC/AC; ARTERIAL BLOOD GAS O2 CAPACITY 11.3 mL/dL (16-24); ARTERIAL BLOOD GAS O2 CONTENT 11.3 ML/dL (15-23); ARTERIAL BLOOD GAS PH 7.41 (7.35-7.45); ARTERIAL BLOOD GAS PO2 112 mm/Hg (80-100); ARTERIAL BLOOD HGB O2 SAT 97.2 % (95.0-98.0); ATERIAL BLOOD GAS PEEP 5; CARBOXYHEMOGLOBIN 1.6 % (0.5-1.5); HHB -0.4 % (0.0-5.0); METHEMOGLOBIN 1.7 % (0.0-3.0)
[2017-01-20] MEDS: Insulin Regular 100 units/ml SC SCH ×4 (07:09→22:06)
[2017-01-20] MEDS: methylPREDNISolone 40 MG in Sodium Chloride 0.9% 50 ML IVPB SCH (08:23)
[2017-01-20] MEDS ORDERED: Potassium Chloride 20 mEq ER Tab PO ONE (09:00)
--- NOTE | 2017-01-20 09:50 | CP.CCUPN ---
<Perry Angelo - Last Filed: 01/20/17 10:57> CCU Subjective - Physician Review Subjective (Free Text): 01/20/17 09:48 Patient this morning. No acute distress, denies pain, responsive to name call, opens eyes, and follows commands. Patient remains intubated with ventilation support. Patient on PRVC A/C. Patient continues to tolerate tube feed Critical Care Time Spent (in minutes): 35 CCU Objective - Vital Signs / Intake & Output Vital Signs (Last 4 hours): Vital Signs Temp Pulse Resp BP Pulse Ox 01/20/17 09:00 72 18 122/100 H 100 01/20/17 08:00 94.5 F L 65 24 118/74 100 01/20/17 07:27 58 L 01/20/17 06:00 60 18 124/64 100 Intake and Output (Last 8hrs): Intake & Output 01/19/17 01/20/17 01/20/17 22:59 06:59 14:59 Intake Total 535 740 140 Output Total 260 400 Balance 275 340 140 Weight 109 lb 3.2 oz Intake: IV 5 20 Intake, Piggyback 50 200 Tube Feeding 280 320 40 Free Water Flush 200 200 100 Output: Urine 260 400 Urethral ([place]) 260 400 Other: # Bowel Movements 1 - Physical Exam Head: Positive for: Normocephalic Pupils: Positive for: PERRL Extroacular Muscles: Positive for: EOMI Conjunctiva: Positive for: Normal. Negative for: Icteric Mouth: Positive for: Moist Mucous Membranes Neck: Positive for: JVD. Negative for: Meningeal Signs Respiratory/Chest: Positive for: Decreased Breath Sounds, Rales. Negative for: Accessory Muscle Use, Wheezes Cardiovascular: Positive for: Irregular Rhythm. Negative for: Murmurs, Rub Abdomen: Positive for: Normal Bowel Sounds, Other (PEG intact). Negative for: Tenderness, Distention Lower Extremity: Positive for: NORMAL PULSES. Negative for: CALF TENDERNESS, Cyanosis Neurological: Positive for: Other (on ventilator) Skin: Positive for: Warm. Negative for: Rashes Psychiatric: Positive for: Alert - Medications Active Medications: Active Medications Generic Name Dose Route Start Last Admin Trade Name Freq PRN Reason Stop Dose Admin Acetaminophen 650 mg 01/10/17 08:40 01/10/17 09:00 Tylenol 650mg/20.3ml Solution Ud PO 650 mg Q6 PRN Administration fever Albuterol/Ipratropium 3 ml 01/14/17 13:58 01/14/17 15:40 Duoneb 3 Mg/0.5 Mg (3 Ml) Ud INH 3 ml RQ6 PRN Administration Shortness of Breath Famotidine 20 mg 01/16/17 21:00 01/20/17 08:23 Pepcid PO 20 mg Q12 LINA Administration Methylprednisolone 40 mg/ 50 mls @ 100 mls/hr 01/19/17 21:00 01/20/17 08:23 Sodium Chloride IVPB 100 mls/hr Q12 LINA Administration Insulin Human Regular 0 units 01/16/17 11:48 01/20/17 07:09 Humulin R SC 4 unit ACCU-CHECK LINA Administration Protocol Rivaroxaban 15 mg 01/16/17 17:00 01/19/17 17:24 Xarelto PO 15 mg DAILY@1700 LINA Administration Protocol - Patient Studies Lab Studies: Lab Studies 01/20/17 01/20/17 01/20/17 Range/Units 05:17 05:13 04:20 WBC (4.8-10.8) K/uL RBC (3.80-5.20) Mil/uL Hgb (12.0-16.0) g/dL Hct (34.0-47.0) % MCV (81.0-99.0) fl MCH (27.0-31.0) pg MCHC (33.0-37.0) g/dL RDW (11.5-14.5) % Plt Count (130-400) K/uL pCO2 42 (35-45) mm/Hg pO2 112 H (80-100) mm/Hg HCO3 26.4 (21-28) mmol/L ABG pH 7.41 (7.35-7.45) ABG Total CO2 27.9 (22-28) mmol/L ABG O2 Saturation 100.4 H (95-98) % ABG O2 Content 11.3 L (15-23) ML/dL ABG Base Excess 1.8 (-2.0-3.0) mmol/L ABG Hemoglobin 8.1 L (11.7-17.4) g/dL ABG Carboxyhemoglobin 1.6 H (0.5-1.5) % POC ABG HHb (Measured) -0.4 L (0.0-5.0) % ABG Methemoglobin 1.7 (0.0-3.0) % ABG O2 Capacity 11.3 L (16-24) mL/dL Rakan Test Yes A-a O2 Difference 121.0 mm/Hg Hgb O2 Saturation 97.2 (95.0-98.0) % Vent Mode Prvc/ac Mechanical Rate 18 FiO2 40.0 % Tidal Volume 380 PEEP 5 Pressure Support CPAP Sodium 138 (132-148) mmol/l Potassium 3.4 L (3.6-5.0) MMOL/L Chloride 103 (98-107) mmol/L Carbon Dioxide 26 (22-30) mmol/L Anion Gap 12 (10-20) BUN 41 H (7-17) mg/dl Creatinine 1.3 H (0.7-1.2) mg/dL Est GFR ( Amer) 49 Est GFR (Non-Af Amer) 40 POC Glucose (mg/dL) 263 H (65-110) mg/dL Random Glucose 227 H (65-105) mg/dL Calcium 8.3 L (8.4-10.2) mg/dL Total Bilirubin 0.2 (0.2-1.3) mg/dl AST 35 (14-36) U/L ALT 31 (9-52) U/L Alkaline Phosphatase 83 (38-126) U/L Total Protein 5.8 L (6.3-8.2) G/DL Albumin 2.5 L (3.5-5.0) g/dL Globulin 3.3 (2.2-3.9) gm/dL Albumin/Globulin Ratio 0.8 L (1.0-2.1) 01/20/17 01/19/17 01/19/17 Range/Units 04:20 20:44 15:48 WBC 9.6 (4.8-10.8) K/uL RBC 2.66 L (3.80-5.20) Mil/uL Hgb 8.2 L (12.0-16.0) g/dL Hct 24.8 L (34.0-47.0) % MCV 93.3 (81.0-99.0) fl MCH 30.7 (27.0-31.0) pg MCHC 32.9 L (33.0-37.0) g/dL RDW 19.7 H (11.5-14.5) % Plt Count 285 (130-400) K/uL pCO2 (35-45) mm/Hg pO2 (80-100) mm/Hg HCO3 (21-28) mmol/L ABG pH (7.35-7.45) ABG Total CO2 (22-28) mmol/L ABG O2 Saturation (95-98) % ABG O2 Content (15-23) ML/dL ABG Base Excess (-2.0-3.0) mmol/L ABG Hemoglobin (11.7-17.4) g/dL ABG Carboxyhemoglobin (0.5-1.5) % POC ABG HHb (Measured) (0.0-5.0) % ABG Methemoglobin (0.0-3.0) % ABG O2 Capacity (16-24) mL/dL Rakan Test A-a O2 Difference mm/Hg Hgb O2 Saturation (95.0-98.0) % Vent Mode Mechanical Rate FiO2 % Tidal Volume PEEP Pressure Support CPAP Sodium (132-148) mmol/l Potassium (3.6-5.0) MMOL/L Chloride (98-107) mmol/L Carbon Dioxide (22-30) mmol/L Anion Gap (10-20) BUN (7-17) mg/dl Creatinine (0.7-1.2) mg/dL Est GFR ( Amer) Est GFR (Non-Af Amer) POC Glucose (mg/dL) 257 H 255 H (65-110) mg/dL Random Glucose (65-105) mg/dL Calcium (8.4-10.2) mg/dL Total Bilirubin (0.2-1.3) mg/dl AST (14-36) U/L ALT (9-52) U/L Alkaline Phosphatase (38-126) U/L Total Protein (6.3-8.2) G/DL Albumin (3.5-5.0) g/dL Globulin (2.2-3.9) gm/dL Albumin/Globulin Ratio (1.0-2.1) 01/19/17 01/19/17 Range/Units 14:30 11:16 WBC (4.8-10.8) K/uL RBC (3.80-5.20) Mil/uL Hgb (12.0-16.0) g/dL Hct (34.0-47.0) % MCV (81.0-99.0) fl MCH (27.0-31.0) pg MCHC (33.0-37.0) g/dL RDW (11.5-14.5) % Plt Count (130-400) K/uL pCO2 66 H (35-45) mm/Hg pO2 91 (80-100) mm/Hg HCO3 26.2 (21-28) mmol/L ABG pH 7.26 L (7.35-7.45) ABG Total CO2 31.6 H (22-28) mmol/L ABG O2 Saturation 98.6 H (95-98) % ABG O2 Content 12.2 L (15-23) ML/dL ABG Base Excess 1.7 (-2.0-3.0) mmol/L ABG Hemoglobin 9.0 L (11.7-17.4) g/dL ABG Carboxyhemoglobin 1.4 (0.5-1.5) % POC ABG HHb (Measured) 1.4 (0.0-5.0) % ABG Methemoglobin 1.7 (0.0-3.0) % ABG O2 Capacity 12.4 L (16-24) mL/dL Rakan Test Yes A-a O2 Difference 112.0 mm/Hg Hgb O2 Saturation 95.4 (95.0-98.0) % Vent Mode Mechanical Rate FiO2 40.0 % Tidal Volume PEEP 5 Pressure Support 10 CPAP 5 Sodium (132-148) mmol/l Potassium (3.6-5.0) MMOL/L Chloride (98-107) mmol/L Carbon Dioxide (22-30) mmol/L Anion Gap (10-20) BUN (7-17) mg/dl Creatinine (0.7-1.2) mg/dL Est GFR ( Amer) Est GFR (Non-Af Amer) POC Glucose (mg/dL) 234 H (65-110) mg/dL Random Glucose (65-105) mg/dL Calcium (8.4-10.2) mg/dL Total Bilirubin (0.2-1.3) mg/dl AST (14-36) U/L ALT (9-52) U/L Alkaline Phosphatase (38-126) U/L Total Protein (6.3-8.2) G/DL Albumin (3.5-5.0) g/dL Globulin (2.2-3.9) gm/dL Albumin/Globulin Ratio (1.0-2.1) Laboratory Results - last 24 hr 01/19/17 01/19/17 01/19/17 11:16 14:30 15:48 WBC RBC Hgb Hct MCV MCH MCHC RDW Plt Count pCO2 66 H pO2 91 HCO3 26.2 ABG pH 7.26 L ABG Total CO2 31.6 H ABG O2 Saturation 98.6 H ABG O2 Content 12.2 L ABG Base Excess 1.7 ABG Hemoglobin 9.0 L ABG Carboxyhemoglobin 1.4 POC ABG HHb (Measured) 1.4 ABG Methemoglobin 1.7 ABG O2 Capacity 12.4 L Rakan Test Yes A-a O2 Difference 112.0 Hgb O2 Saturation 95.4 Vent Mode Mechanical Rate FiO2 40.0 Tidal Volume PEEP 5 Pressure Support 10 CPAP 5 Sodium Potassium Chloride Carbon Dioxide Anion Gap BUN Creatinine Est GFR ( Amer) Est GFR (Non-Af Amer) POC Glucose (mg/dL) 234 H 255 H Random Glucose Calcium Total Bilirubin AST ALT Alkaline Phosphatase Total Protein Albumin Globulin Albumin/Globulin Ratio 01/19/17 01/20/17 01/20/17 20:44 04:20 04:20 WBC 9.6 RBC 2.66 L Hgb 8.2 L Hct 24.8 L MCV 93.3 MCH 30.7 MCHC 32.9 L RDW 19.7 H Plt Count 285 pCO2 pO2 HCO3 ABG pH ABG Total CO2 ABG O2 Saturation ABG O2 Content ABG Base Excess ABG Hemoglobin ABG Carboxyhemoglobin POC ABG HHb (Measured) ABG Methemoglobin ABG O2 Capacity Rakan Test A-a O2 Difference Hgb O2 Saturation Vent Mode Mechanical Rate FiO2 Tidal Volume PEEP Pressure Support CPAP Sodium 138 Potassium 3.4 L Chloride 103 Carbon Dioxide 26 Anion Gap 12 BUN 41 H Creatinine 1.3 H Est GFR ( Amer) 49 Est GFR (Non-Af Amer) 40 POC Glucose (mg/dL) 257 H Random Glucose 227 H Calcium 8.3 L Total Bilirubin 0.2 AST 35 ALT 31 Alkaline Phosphatase 83 Total Protein 5.8 L Albumin 2.5 L Globulin 3.3 Albumin/Globulin Ratio 0.8 L 01/20/17 01/20/17 05:13 05:17 WBC RBC Hgb Hct MCV MCH MCHC RDW Plt Count pCO2 42 pO2 112 H HCO3 26.4 ABG pH 7.41 ABG Total CO2 27.9 ABG O2 Saturation 100.4 H ABG O2 Content 11.3 L ABG Base Excess 1.8 ABG Hemoglobin 8.1 L ABG Carboxyhemoglobin 1.6 H POC ABG HHb (Measured) -0.4 L ABG Methemoglobin 1.7 ABG O2 Capacity 11.3 L Rakan Test Yes A-a O2 Difference 121.0 Hgb O2 Saturation 97.2 Vent Mode Prvc/ac Mechanical Rate 18 FiO2 40.0 Tidal Volume 380 PEEP 5 Pressure Support CPAP Sodium Potassium Chloride Carbon Dioxide Anion Gap BUN Creatinine Est GFR ( Amer) Est GFR (Non-Af Amer) POC Glucose (mg/dL) 263 H Random Glucose Calcium Total Bilirubin AST ALT Alkaline Phosphatase Total Protein Albumin Globulin Albumin/Globulin Ratio Fingerstick Blood Sugar Results: 263 Review of Systems - Review of Systems Systems not reviewed;Unavailable: Intubated Assessment/Plan - Assessment and Plan (Free Text) Assessment: 71 y/o woman w/ pmh of PEG (placed 2 days prior to admission), bed bound, dementia, CHF EF 30%, AFib, HTN, and HLD in ICU for respiratory failure. Plan: Acute respiratory failure with hypercapnia - re-intubated 01/16/2017 - PRVC A/C rate 18, vol 380 mL, FIO2 40%, PEEP 5 - ABG: pH 7.41, pCO2 42, pO2 112, HCO3 26.4 - will attempt CPAP w/ PS 15, PEEP 5, FIO2 50% - f/u TSH, T3, T4, Mg, Phos - surgery consult placed to evaluate for possible tracheostomy - Pulmonary consult, Dr. Mendoza COPD exacerbation - patient has history of emphysema - patient retaining CO2 - decreased methyprednisolone 40 mg IV to Q12h - c/w duonebs Q6h - chest PT Q6h s/p duoneb therapy I & O - positive balance - urine output from [place] 660 mL overnight - no diurectic at this time Diet - reports appetite - PEG placed due to poor nutrition - receiving tube feeds 40mL/hr - changed tube feeding to glucerna 1.2 - on sliding scale insulin Type 2 diabetes - newly diagnosed, HbA1c 6.9% - on insulin sliding scale HCAP (healthcare-associated pneumonia) - sputum culture 01/10/2017 grew Staph aureus susceptible to all antibiotics except penicillin - sputum culture 01/16/2017 shows normal oral errol - DC'ed IV Piperacillin Sod/Tazobactam 2.25 g Q6h - c/w tylenol for fever prn - ID consult, Dr. Mosqueda to determine if pt needs to c/w abx Cardiac arrest - ACLS initiated in residential, ROSC achieved priro to EMS arrival, intubated for agonal breathing - improved mental status, Patient awake, oriented, follow commands. - K+ normalized Anemia - anemic since admission, Hb 6.9 01/12/2017 - s/p 1 PRBC 01/12/2017 - No evidence of active bleeding, Hb 8.2 Atrial fibrillation - chronic, home meds digoxin held - xarelto 15 mg PO daily - cardiac monitoring Prophylactic Measures - pepcid 20 mg IVP Q12 - SCDs - PT/OT eval/treat recommendations appreciated, on hold currently due to re- intubation <Marcel Brown V - Last Filed: 01/20/17 11:31> CCU Subjective - Physician Review Events Since Last Encounter (Free Text): 01/20/17 11:28 patient is seen, examined at bedside. case was discussed in am ICU rounds.. s/p cardiac arrest. failed extubation. surgery to evaluate for possible tracheostomy. ID consult for optmization antibiotic coverage. continue weaning as tolerated. CCU Objective - Vital Signs / Intake & Output Vital Signs (Last 4 hours): Vital Signs Temp Pulse Resp BP Pulse Ox 01/20/17 11:00 70 20 135/95 H 100 01/20/17 10:00 65 18 157/90 H 100 01/20/17 09:00 72 18 122/100 H 100 01/20/17 08:00 94.5 F L 65 24 118/74 100 Intake and Output (Last 8hrs): Intake & Output 01/19/17 01/20/17 01/20/17 22:59 06:59 14:59 Intake Total 535 740 270 Output Total 260 400 Balance 275 340 270 Weight 109 lb 3.2 oz Intake: IV 5 20 Intake, Piggyback 50 200 50 Tube Feeding 280 320 120 Free Water Flush 200 200 100 Output: Urine 260 400 Urethral ([place]) 260 400 Other: # Bowel Movements 1 - Medications Active Medications: Active Medications Generic Name Dose Route Start Last Admin Trade Name Freq PRN Reason Stop Dose Admin Acetaminophen 650 mg 01/10/17 08:40 01/10/17 09:00 Tylenol 650mg/20.3ml Solution Ud PO 650 mg Q6 PRN Administration fever Acetylcysteine 2 ml 01/20/17 20:00 Mucomyst 10% 4ml IH RBID LINA Albuterol/Ipratropium 3 ml 01/14/17 13:58 01/14/17 15:40 Duoneb 3 Mg/0.5 Mg (3 Ml) Ud INH 3 ml RQ6 PRN Administration Shortness of Breath Famotidine 20 mg 01/16/17 21:00 01/20/17 08:23 Pepcid PO 20 mg Q12 LINA Administration Methylprednisolone 20 mg/ 50 mls @ 100 mls/hr 01/20/17 21:00 Sodium Chloride IVPB Q12 LINA Insulin Human Regular 0 units 01/16/17 11:48 01/20/17 11:13 Humulin R SC 4 unit ACCU-CHECK LINA Administration Protocol Rivaroxaban 15 mg 01/16/17 17:00 01/19/17 17:24 Xarelto PO 15 mg DAILY@1700 LINA Administration Protocol - Patient Studies Lab Studies: Lab Studies 01/20/17 01/20/17 01/20/17 Range/Units 11:09 05:17 05:13 WBC (4.8-10.8) K/uL RBC (3.80-5.20) Mil/uL Hgb (12.0-16.0) g/dL Hct (34.0-47.0) % MCV (81.0-99.0) fl MCH (27.0-31.0) pg MCHC (33.0-37.0) g/dL RDW (11.5-14.5) % Plt Count (130-400) K/uL pCO2 42 (35-45) mm/Hg pO2 112 H (80-100) mm/Hg HCO3 26.4 (21-28) mmol/L ABG pH 7.41 (7.35-7.45) ABG Total CO2 27.9 (22-28) mmol/L ABG O2 Saturation 100.4 H (95-98) % ABG O2 Content 11.3 L (15-23) ML/dL ABG Base Excess 1.8 (-2.0-3.0) mmol/L ABG Hemoglobin 8.1 L (11.7-17.4) g/dL ABG Carboxyhemoglobin 1.6 H (0.5-1.5) % POC ABG HHb (Measured) -0.4 L (0.0-5.0) % ABG Methemoglobin 1.7 (0.0-3.0) % ABG O2 Capacity 11.3 L (16-24) mL/dL Rakan Test Yes A-a O2 Difference 121.0 mm/Hg Hgb O2 Saturation 97.2 (95.0-98.0) % Vent Mode Prvc/ac Mechanical Rate 18 FiO2 40.0 % Tidal Volume 380 PEEP 5 Pressure Support CPAP Sodium (132-148) mmol/l Potassium (3.6-5.0) MMOL/L Chloride (98-107) mmol/L Carbon Dioxide (22-30) mmol/L Anion Gap (10-20) BUN (7-17) mg/dl Creatinine (0.7-1.2) mg/dL Est GFR ( Amer) Est GFR (Non-Af Amer) POC Glucose (mg/dL) 265 H 263 H (65-110) mg/dL Random Glucose (65-105) mg/dL Calcium (8.4-10.2) mg/dL Total Bilirubin (0.2-1.3) mg/dl AST (14-36) U/L ALT (9-52) U/L Alkaline Phosphatase (38-126) U/L Total Protein (6.3-8.2) G/DL Albumin (3.5-5.0) g/dL Globulin (2.2-3.9) gm/dL Albumin/Globulin Ratio (1.0-2.1) 01/20/17 01/20/17 01/19/17 Range/Units 04:20 04:20 20:44 WBC 9.6 (4.8-10.8) K/uL RBC 2.66 L (3.80-5.20) Mil/uL Hgb 8.2 L (12.0-16.0) g/dL Hct 24.8 L (34.0-47.0) % MCV 93.3 (81.0-99.0) fl MCH 30.7 (27.0-31.0) pg MCHC 32.9 L (33.0-37.0) g/dL RDW 19.7 H (11.5-14.5) % Plt Count 285 (130-400) K/uL pCO2 (35-45) mm/Hg pO2 (80-100) mm/Hg HCO3 (21-28) mmol/L ABG pH (7.35-7.45) ABG Total CO2 (22-28) mmol/L ABG O2 Saturation (95-98) % ABG O2 Content (15-23) ML/dL ABG Base Excess (-2.0-3.0) mmol/L ABG Hemoglobin (11.7-17.4) g/dL ABG Carboxyhemoglobin (0.5-1.5) % POC ABG HHb (Measured) (0.0-5.0) % ABG Methemoglobin (0.0-3.0) % ABG O2 Capacity (16-24) mL/dL Rakan Test A-a O2 Difference mm/Hg Hgb O2 Saturation (95.0-98.0) % Vent Mode Mechanical Rate FiO2 % Tidal Volume PEEP Pressure Support CPAP Sodium 138 (132-148) mmol/l Potassium 3.4 L (3.6-5.0) MMOL/L Chloride 103 (98-107) mmol/L Carbon Dioxide 26 (22-30) mmol/L Anion Gap 12 (10-20) BUN 41 H (7-17) mg/dl Creatinine 1.3 H (0.7-1.2) mg/dL Est GFR ( Amer) 49 Est GFR (Non-Af Amer) 40 POC Glucose (mg/dL) 257 H (65-110) mg/dL Random Glucose 227 H (65-105) mg/dL Calcium 8.3 L (8.4-10.2) mg/dL Total Bilirubin 0.2 (0.2-1.3) mg/dl AST 35 (14-36) U/L ALT 31 (9-52) U/L Alkaline Phosphatase 83 (38-126) U/L Total Protein 5.8 L (6.3-8.2) G/DL Albumin 2.5 L (3.5-5.0) g/dL Globulin 3.3 (2.2-3.9) gm/dL Albumin/Globulin Ratio 0.8 L (1.0-2.1) 01/19/17 01/19/17 Range/Units 15:48 14:30 WBC (4.8-10.8) K/uL RBC (3.80-5.20) Mil/uL Hgb (12.0-16.0) g/dL Hct (34.0-47.0) % MCV (81.0-99.0) fl MCH (27.0-31.0) pg MCHC (33.0-37.0) g/dL RDW (11.5-14.5) % Plt Count (130-400) K/uL pCO2 66 H (35-45) mm/Hg pO2 91 (80-100) mm/Hg HCO3 26.2 (21-28) mmol/L ABG pH 7.26 L (7.35-7.45) ABG Total CO2 31.6 H (22-28) mmol/L ABG O2 Saturation 98.6 H (95-98) % ABG O2 Content 12.2 L (15-23) ML/dL ABG Base Excess 1.7 (-2.0-3.0) mmol/L ABG Hemoglobin 9.0 L (11.7-17.4) g/dL ABG Carboxyhemoglobin 1.4 (0.5-1.5) % POC ABG HHb (Measured) 1.4 (0.0-5.0) % ABG Methemoglobin 1.7 (0.0-3.0) % ABG O2 Capacity 12.4 L (16-24) mL/dL Rakan Test Yes A-a O2 Difference 112.0 mm/Hg Hgb O2 Saturation 95.4 (95.0-98.0) % Vent Mode Mechanical Rate FiO2 40.0 % Tidal Volume PEEP 5 Pressure Support 10 CPAP 5 Sodium (132-148) mmol/l Potassium (3.6-5.0) MMOL/L Chloride (98-107) mmol/L Carbon Dioxide (22-30) mmol/L Anion Gap (10-20) BUN (7-17) mg/dl Creatinine (0.7-1.2) mg/dL Est GFR ( Amer) Est GFR (Non-Af Amer) POC Glucose (mg/dL) 255 H (65-110) mg/dL Random Glucose (65-105) mg/dL Calcium (8.4-10.2) mg/dL Total Bilirubin (0.2-1.3) mg/dl AST (14-36) U/L ALT (9-52) U/L Alkaline Phosphatase (38-126) U/L Total Protein (6.3-8.2) G/DL Albumin (3.5-5.0) g/dL Globulin (2.2-3.9) gm/dL Albumin/Globulin Ratio (1.0-2.1) Laboratory Results - last 24 hr 01/19/17 01/19/17 01/19/17 14:30 15:48 20:44 WBC RBC Hgb Hct MCV MCH MCHC RDW Plt Count pCO2 66 H pO2 91 HCO3 26.2 ABG pH 7.26 L ABG Total CO2 31.6 H ABG O2 Saturation 98.6 H ABG O2 Content 12.2 L ABG Base Excess 1.7 ABG Hemoglobin 9.0 L ABG Carboxyhemoglobin 1.4 POC ABG HHb (Measured) 1.4 ABG Methemoglobin 1.7 ABG O2 Capacity 12.4 L Rakan Test Yes A-a O2 Difference 112.0 Hgb O2 Saturation 95.4 Vent Mode Mechanical Rate FiO2 40.0 Tidal Volume PEEP 5 Pressure Support 10 CPAP 5 Sodium Potassium Chloride Carbon Dioxide Anion Gap BUN Creatinine Est GFR ( Amer) Est GFR (Non-Af Amer) POC Glucose (mg/dL) 255 H 257 H Random Glucose Calcium Total Bilirubin AST ALT Alkaline Phosphatase Total Protein Albumin Globulin Albumin/Globulin Ratio 01/20/17 01/20/17 01/20/17 04:20 04:20 05:13 WBC 9.6 RBC 2.66 L Hgb 8.2 L Hct 24.8 L MCV 93.3 MCH 30.7 MCHC 32.9 L RDW 19.7 H Plt Count 285 pCO2 42 pO2 112 H HCO3 26.4 ABG pH 7.41 ABG Total CO2 27.9 ABG O2 Saturation 100.4 H ABG O2 Content 11.3 L ABG Base Excess 1.8 ABG Hemoglobin 8.1 L ABG Carboxyhemoglobin 1.6 H POC ABG HHb (Measured) -0.4 L ABG Methemoglobin 1.7 ABG O2 Capacity 11.3 L Rakan Test Yes A-a O2 Difference 121.0 Hgb O2 Saturation 97.2 Vent Mode Prvc/ac Mechanical Rate 18 FiO2 40.0 Tidal Volume 380 PEEP 5 Pressure Support CPAP Sodium 138 Potassium 3.4 L Chloride 103 Carbon Dioxide 26 Anion Gap 12 BUN 41 H Creatinine 1.3 H Est GFR ( Amer) 49 Est GFR (Non-Af Amer) 40 POC Glucose (mg/dL) Random Glucose 227 H Calcium 8.3 L Total Bilirubin 0.2 AST 35 ALT 31 Alkaline Phosphatase 83 Total Protein 5.8 L Albumin 2.5 L Globulin 3.3 Albumin/Globulin Ratio 0.8 L 01/20/17 01/20/17 05:17 11:09 WBC RBC Hgb Hct MCV MCH MCHC RDW Plt Count pCO2 pO2 HCO3 ABG pH ABG Total CO2 ABG O2 Saturation ABG O2 Content ABG Base Excess ABG Hemoglobin ABG Carboxyhemoglobin POC ABG HHb (Measured) ABG Methemoglobin ABG O2 Capacity Rakan Test A-a O2 Difference Hgb O2 Saturation Vent Mode Mechanical Rate FiO2 Tidal Volume PEEP Pressure Support CPAP Sodium Potassium Chloride Carbon Dioxide Anion Gap BUN Creatinine Est GFR ( Amer) Est GFR (Non-Af Amer) POC Glucose (mg/dL) 263 H 265 H Random Glucose Calcium Total Bilirubin AST ALT Alkaline Phosphatase Total Protein Albumin Globulin Albumin/Globulin Ratio
[2017-01-20 11:32] LABS: MAGNESIUM 2.2 MG/DL (1.6-2.3); PHOSPHOROUS 4.7 mg/dl (2.5-4.5)
[2017-01-20 11:51] LABS: T4 2.9 ug/dl (5.5-11.0)
[2017-01-20 12:05] LABS: THYROID STIMULATING HORMONE 1.87 mIU/ML (0.46-4.68)
--- NOTE | 2017-01-20 13:03 | CP.PCM.CON ---
History of Present Illness - History of Present Illness History of Present Illness: General Surgery consult for Dr. Fco Whitinged for: tracheostomy Patient is a 71F with PMH of COPD, CHF, afib on xarelto, and dementia. Patient was found unresponsive in respiratory distress at the custodial 12 days ago d /t HCAP and was intubated upon admission. She was extubated on 01/15 but had to be re-intubated on 01/16. Patient has been trialing on CPAP yesterday and today but surgery was consulted for possible trach due to prior extubation failure. Patient is awake, alert, and able to answer questions non-verbally. Denies any pain or any other symptoms. Patient is currently mechanically ventilated on CPAP with 50% FiO2 and 5 PEEP with stable respiratory status PMH: COPD, CHF, afib on xarelto, dementia, HTN, HLD, CKD PSH: PEG tube placement, cataracts ALL: NDKA Social: lives at a custodial Review of Systems - Review of Systems Systems not reviewed;Unavailable: Dementia, Intubated All systems: reviewed and no additional remarkable complaints except - Constitutional Constitutional: absent: Chills, Fever - Cardiovascular Cardiovascular: absent: Chest Pain, Chest Pain at Rest - Respiratory Respiratory: absent: Chest Congestion - Gastrointestinal Gastrointestinal: absent: Abdominal Pain, Nausea, Vomiting Past Patient History - Infectious Disease Hx of Infectious Diseases: None - Tetanus Immunizations Tetanus Immunization: Unknown - Past Medical History & Family History Past Medical History?: Yes - Past Social History Smoking Status: unknown - CARDIAC Hx Atrial Fibrillation: Yes Hx Cardia Arrhythmia: Yes Hx Congestive Heart Failure: Yes Hx Hypercholesterolemia: Yes Hx Hypertension: Yes - PULMONARY Hx Asthma: No Hx Chronic Obstructive Pulmonary Disease (COPD): No Hx Emphysema: Yes - NEUROLOGICAL Hx Dementia: Yes - HEENT Hx HEENT Problems: Yes Hx Cataracts: Yes (both eyes) - RENAL Hx Chronic Kidney Disease: No - ENDOCRINE/METABOLIC Hx Endocrine Disorders: No - HEMATOLOGICAL/ONCOLOGICAL Hx Anemia: Yes - INTEGUMENTARY Hx Dermatological Problems: No - MUSCULOSKELETAL/RHEUMATOLOGICAL Hx Musculoskeletal Disorders: Yes Hx Falls: No (unknown) Hx Unsteady Gait: Yes - GASTROINTESTINAL Hx Gastrointestinal Disorders: Yes Other/Comment: patient is very anorectic. >with PEG - GENITOURINARY/GYNECOLOGICAL Hx Genitourinary Disorders: No - PSYCHIATRIC Hx Psychophysiologic Disorder: No Hx Substance Use: (unknown) - SURGICAL HISTORY Hx Surgeries: Yes Hx Cataract Extraction: Yes (2013) Hx Eye Surgery: Yes - ANESTHESIA Hx Anesthesia: Yes Hx Anesthesia Reactions: No Hx Malignant Hyperthermia: No Meds Allergies/Adverse Reactions: Allergies Allergy/AdvReac Type Severity Reaction Status Date / Time No Known Allergies Allergy Verified 12/16/16 15:11 - Medications Medications: Current Medications Acetaminophen (Tylenol 650mg/20.3ml Solution Ud) 650 mg PO Q6 PRN PRN Reason: fever Last Admin: 01/10/17 09:00 Dose: 650 mg Acetylcysteine (Mucomyst 10% 4ml) 2 ml IH RBID [facility] Albuterol/Ipratropium (Duoneb 3 Mg/0.5 Mg (3 Ml) Ud) 3 ml INH RQ6 PRN PRN Reason: Shortness of Breath Last Admin: 01/14/17 15:40 Dose: 3 ml Famotidine (Pepcid) 20 mg PO Q12 [facility] Last Admin: 01/20/17 08:23 Dose: 20 mg Methylprednisolone 20 mg/ (Sodium Chloride) 50 mls @ 100 mls/hr IVPB Q12 [facility] Clindamycin Phosphate 600 mg/ (Sodium Chloride) 104 mls @ 104 mls/hr IVPB Q8 [facility] PRN Reason: Protocol Piperacillin Sod/Tazobactam (Sod 2.25 gm/ Sodium Chloride) 100 mls @ 100 mls/ hr IVPB Q6 [facility] PRN Reason: Protocol Dextrose/Sodium Chloride (Dextrose 5%/0.45% Ns 1000 Ml) 1,000 mls @ 80 mls/hr IV .[id number] [facility] Stop: 01/21/17 12:52 Insulin Human Regular (Humulin R) 0 units SC ACCU-CHECK [facility] PRN Reason: Protocol Last Admin: 01/20/17 11:13 Dose: 4 unit Rivaroxaban (Xarelto) 15 mg PO DAILY@1700 [facility] PRN Reason: Protocol Last Admin: 01/19/17 17:24 Dose: 15 mg Physical Exam - Constitutional Appears: Non-toxic, No Acute Distress, Older Than Stated Age, Chronically Ill - Head Exam Head Exam: ATRAUMATIC, NORMOCEPHALIC - Eye Exam Eye Exam: Normal appearance. absent: Conjunctival injection, Scleral icterus - ENT Exam ENT Exam: Mucous Membranes Moist Additional comments: ETT in place - Neck Exam Neck exam: Positive for: Normal Inspection - Respiratory Exam Respiratory Exam: NORMAL BREATHING PATTERN. absent: Accessory Muscle Use, Respiratory Distress Additional comments: on mechanical ventilator CPAP - Cardiovascular Exam Cardiovascular Exam: RRR - GI/Abdominal Exam GI & Abdominal Exam: Distended (mild), Soft. absent: Guarding, Tenderness - Extremities Exam Extremities exam: Positive for: pedal pulses present. Negative for: calf tenderness, pedal edema - Neurological Exam Neurological exam: Alert - Psychiatric Exam Psychiatric exam: Normal Affect, Normal Mood - Skin Skin Exam: Dry, Normal Color, Warm Results - Vital Signs Recent Vital Signs: Last Vital Signs Temp 96.6 F L 01/20/17 12:00 Pulse 74 01/20/17 12:00 Resp 31 H 01/20/17 12:00 BP 136/92 H 01/20/17 12:00 Pulse Ox 100 01/20/17 12:00 - Labs Result Diagrams: 01/20/17 04:20 01/20/17 04:20 Labs: Laboratory Results - last 24 hr 01/19/17 01/19/17 01/19/17 14:30 15:48 20:44 WBC RBC Hgb Hct MCV MCH MCHC RDW Plt Count pCO2 66 H pO2 91 HCO3 26.2 ABG pH 7.26 L ABG Total CO2 31.6 H ABG O2 Saturation 98.6 H ABG O2 Content 12.2 L ABG Base Excess 1.7 ABG Hemoglobin 9.0 L ABG Carboxyhemoglobin 1.4 POC ABG HHb (Measured) 1.4 ABG Methemoglobin 1.7 ABG O2 Capacity 12.4 L Rakan Test Yes A-a O2 Difference 112.0 Hgb O2 Saturation 95.4 Vent Mode Mechanical Rate FiO2 40.0 Tidal Volume PEEP 5 Pressure Support 10 CPAP 5 Sodium Potassium Chloride Carbon Dioxide Anion Gap BUN Creatinine Est GFR ( Amer) Est GFR (Non-Af Amer) POC Glucose (mg/dL) 255 H 257 H Random Glucose Calcium Phosphorus Magnesium Total Bilirubin AST ALT Alkaline Phosphatase Total Protein Albumin Globulin Albumin/Globulin Ratio Thyroxine (T4) Total T3 TSH 3rd Generation 01/20/17 01/20/17 01/20/17 04:20 04:20 05:13 WBC 9.6 RBC 2.66 L Hgb 8.2 L Hct 24.8 L MCV 93.3 MCH 30.7 MCHC 32.9 L RDW 19.7 H Plt Count 285 pCO2 42 pO2 112 H HCO3 26.4 ABG pH 7.41 ABG Total CO2 27.9 ABG O2 Saturation 100.4 H ABG O2 Content 11.3 L ABG Base Excess 1.8 ABG Hemoglobin 8.1 L ABG Carboxyhemoglobin 1.6 H POC ABG HHb (Measured) -0.4 L ABG Methemoglobin 1.7 ABG O2 Capacity 11.3 L Rakan Test Yes A-a O2 Difference 121.0 Hgb O2 Saturation 97.2 Vent Mode Prvc/ac Mechanical Rate 18 FiO2 40.0 Tidal Volume 380 PEEP 5 Pressure Support CPAP Sodium 138 Potassium 3.4 L Chloride 103 Carbon Dioxide 26 Anion Gap 12 BUN 41 H Creatinine 1.3 H Est GFR ( Amer) 49 Est GFR (Non-Af Amer) 40 POC Glucose (mg/dL) Random Glucose 227 H Calcium 8.3 L Phosphorus Magnesium Total Bilirubin 0.2 AST 35 ALT 31 Alkaline Phosphatase 83 Total Protein 5.8 L Albumin 2.5 L Globulin 3.3 Albumin/Globulin Ratio 0.8 L Thyroxine (T4) Total T3 TSH 3rd Generation 01/20/17 01/20/17 01/20/17 05:17 11:09 11:14 WBC RBC Hgb Hct MCV MCH MCHC RDW Plt Count pCO2 pO2 HCO3 ABG pH ABG Total CO2 ABG O2 Saturation ABG O2 Content ABG Base Excess ABG Hemoglobin ABG Carboxyhemoglobin POC ABG HHb (Measured) ABG Methemoglobin ABG O2 Capacity Rakan Test A-a O2 Difference Hgb O2 Saturation Vent Mode Mechanical Rate FiO2 Tidal Volume PEEP Pressure Support CPAP Sodium Potassium Chloride Carbon Dioxide Anion Gap BUN Creatinine Est GFR ( Amer) Est GFR (Non-Af Amer) POC Glucose (mg/dL) 263 H 265 H Random Glucose Calcium Phosphorus 4.7 H Magnesium 2.2 Total Bilirubin AST ALT Alkaline Phosphatase Total Protein Albumin Globulin Albumin/Globulin Ratio Thyroxine (T4) 2.90 L Total T3 0.365 L TSH 3rd Generation 1.87 Assessment & Plan - Assessment and Plan (Free Text) Assessment: 71F with respiratory distress requiring mechanical ventilation Plan: -OR tomorrow PM for tracheostomy -Hold xarelto -AM CBC/CMP, PT/PTT -Hold tube feeds and NPO after midnight -IVF after midnight -continue current medical management Thank you for this consult Discussed with DR. Fco Dillard, PGY2
--- NOTE | 2017-01-20 14:26 | CP.PCM.PN ---
Subjective - Date & Time of Evaluation Date of Evaluation: 01/20/17 Time of Evaluation: 08:00 - Subjective Subjective: - Patient was seen and examined with Dr. Lechuga. Patient continues to be intubated on the ventilator. No overnight events reported. Patient has been tolerating tube feed. Objective - Vital Signs/Intake and Output Vital Signs (last 24 hours): Temp Pulse Resp BP Pulse Ox 96.6 F L 62 16 122/62 100 01/20/17 12:00 01/20/17 14:00 01/20/17 14:00 01/20/17 14:00 01/20/17 14:00 Intake and Output: 01/20/17 01/20/17 06:59 18:59 Intake Total 1015 530 Output Total 400 Balance 615 530 - Medications Medications: Current Medications Acetaminophen (Tylenol 650mg/20.3ml Solution Ud) 650 mg PO Q6 PRN PRN Reason: fever Last Admin: 01/10/17 09:00 Dose: 650 mg Acetylcysteine (Mucomyst 10% 4ml) 2 ml IH RBID [facility] Albuterol/Ipratropium (Duoneb 3 Mg/0.5 Mg (3 Ml) Ud) 3 ml INH RQ6 PRN PRN Reason: Shortness of Breath Last Admin: 01/14/17 15:40 Dose: 3 ml Famotidine (Pepcid) 20 mg PO Q12 [facility] Last Admin: 01/20/17 08:23 Dose: 20 mg Methylprednisolone 20 mg/ (Sodium Chloride) 50 mls @ 100 mls/hr IVPB Q12 [facility] Clindamycin Phosphate 600 mg/ (Sodium Chloride) 104 mls @ 104 mls/hr IVPB Q8 [facility] PRN Reason: Protocol Piperacillin Sod/Tazobactam (Sod 2.25 gm/ Sodium Chloride) 100 mls @ 100 mls/ hr IVPB Q6 [facility] PRN Reason: Protocol Dextrose/Sodium Chloride (Dextrose 5%/0.45% Ns 1000 Ml) 1,000 mls @ 80 mls/hr IV .[id number] [facility] Stop: 01/21/17 12:52 Insulin Human Regular (Humulin R) 0 units SC ACCU-CHECK [facility] PRN Reason: Protocol Last Admin: 01/20/17 11:13 Dose: 4 unit Rivaroxaban (Xarelto) 15 mg PO DAILY@1700 [facility] PRN Reason: Protocol Last Admin: 01/19/17 17:24 Dose: 15 mg - Labs Labs: 01/20/17 04:20 01/20/17 04:20 PT 11.8 Seconds (9.8-13.1) 01/10/17 05:30 INR 1.1 (0.9-1.2) 01/10/17 05:30 APTT 30.3 Seconds (25.6-37.1) 01/10/17 05:30 - Constitutional Appears: No Acute Distress - Head Exam Head Exam: NORMAL INSPECTION - Eye Exam Eye Exam: Normal appearance Pupil Exam: PERRL - ENT Exam ENT Exam: Mucous Membranes Moist - Neck Exam Neck Exam: Full ROM, Normal Inspection - Respiratory Exam Respiratory Exam: Decreased Breath Sounds, NORMAL BREATHING PATTERN. absent: Rhonchi, Wheezes - Cardiovascular Exam Cardiovascular Exam: REGULAR RHYTHM, +S1, +S2 - GI/Abdominal Exam GI & Abdominal Exam: Normal Bowel Sounds. absent: Tenderness Additional comments: peg tube intact - Neurological Exam Neurological Exam: Alert, Awake, Oriented x3 - Skin Skin Exam: Normal Color, Warm Assessment and Plan - Assessment and Plan (Free Text) Assessment: 1) Acute respiratory failure w/ hypercapnia -re intubated 01/16/17 - ABG: pH 7.41, pCO2 42, pO2 112, HCO3 26.4 - tolerating tube feedings - surgery consult placed to evaluate for possible tracheotomy - hold xarelto and tube feeds, for tracheostomy tomorrow 2) HCAP - ID consult appreciated. F/U with Dr. Mosqueda if needs to c/w abx 3) COPD exacerbation - retaining CO2 - Continue with Methyprednisolone 40 mg IV Q8h - Continue with Duoneb Q6 - chest PT Q6h s/p duoneb 4) Type 2 DM - Newly diagnosed: 6.9 - on insulin sliding scale 5)Anemia - No evidence of active bleeding, Hb 9.3 6) Chronic Atrial fibrilation -xarelto restarted 15 mg PO - Digoxin currently held - 7) Prophylaxis SCD for DVT prophylaxis Pepcid for GI Px - PT/OT ordered
[2017-01-20] MEDS: Clindamycin 600 MG in Sodium Chloride 0.9% 100 ML IVPB SCH (16:25)
--- NOTE | 2017-01-20 16:50 | CP.PCM.PN ---
Subjective - Date & Time of Evaluation Date of Evaluation: 01/20/17 Time of Evaluation: 16:50 - Subjective Subjective: I D NOTE PATIENT EXAMINED ,CHART REVIEWED FULL CONSULT DICTATED Objective - Vital Signs/Intake and Output Vital Signs (last 24 hours): Temp Pulse Resp BP Pulse Ox 96.8 F L 74 16 130/85 100 01/20/17 16:00 01/20/17 16:00 01/20/17 16:00 01/20/17 16:00 01/20/17 16:00 Intake and Output: 01/20/17 01/20/17 06:59 18:59 Intake Total 1015 810 Output Total 400 Balance 615 810 - Medications Medications: Current Medications Acetaminophen (Tylenol 650mg/20.3ml Solution Ud) 650 mg PO Q6 PRN PRN Reason: fever Last Admin: 01/10/17 09:00 Dose: 650 mg Acetylcysteine (Mucomyst 10% 4ml) 2 ml IH RBID [facility] Albuterol/Ipratropium (Duoneb 3 Mg/0.5 Mg (3 Ml) Ud) 3 ml INH RQ6 PRN PRN Reason: Shortness of Breath Last Admin: 01/14/17 15:40 Dose: 3 ml Famotidine (Pepcid) 20 mg PO Q12 [facility] Last Admin: 01/20/17 08:23 Dose: 20 mg Methylprednisolone 20 mg/ (Sodium Chloride) 50 mls @ 100 mls/hr IVPB Q12 [facility] Clindamycin Phosphate 600 mg/ (Sodium Chloride) 104 mls @ 104 mls/hr IVPB Q8 [facility] PRN Reason: Protocol Last Admin: 01/20/17 16:25 Dose: 104 mls/hr Piperacillin Sod/Tazobactam (Sod 2.25 gm/ Sodium Chloride) 100 mls @ 100 mls/ hr IVPB Q6 [facility] PRN Reason: Protocol Last Admin: 01/20/17 15:31 Dose: 100 mls/hr Dextrose/Sodium Chloride (Dextrose 5%/0.45% Ns 1000 Ml) 1,000 mls @ 80 mls/hr IV .[id number] [facility] Stop: 01/21/17 12:52 Insulin Human Regular (Humulin R) 0 units SC ACCU-CHECK [facility] PRN Reason: Protocol Last Admin: 01/20/17 16:25 Dose: 4 unit Rivaroxaban (Xarelto) 15 mg PO DAILY@1700 [facility] PRN Reason: Protocol Last Admin: 01/19/17 17:24 Dose: 15 mg - Labs Labs: 01/20/17 04:20 01/20/17 04:20 PT 11.8 Seconds (9.8-13.1) 01/10/17 05:30 INR 1.1 (0.9-1.2) 01/10/17 05:30 APTT 30.3 Seconds (25.6-37.1) 01/10/17 05:30
[2017-01-20] MEDS: Albuterol-Ipratrop 3 mg / 0.5 (3 ml) UD INH PRN (19:46)
[2017-01-20] MEDS: Acetylcysteine 10% 4 ML IH SCH (19:46)
[2017-01-20] MEDS: methylPREDNISolone 20 MG in Sodium Chloride 0.9% 50 ML IVPB SCH (21:00)
--- NOTE | 2017-01-20 22:50 | CON ---
INFECTIOUS DISEASE CONSULTATION LOCATION: The patient is presently in the ICU. HISTORY OF PRESENT ILLNESS: The patient came to the ER on 01/09/2017 in respiratory distress. She is a 71-year-old female with a past medical history of congestive heart failure and cardiac arrhythmia. She was brought by EMS for respiratory failure. She was found unresponsive by her halfway[facility] health assistant. Chest compression was started by halfway staff. They stated the patient did have a pulse and on arrival agonal breathing, and that is when she was intubated. The patient is being seen for unresolving pneumonia. This morning, she was in no acute distress, responsive to name call, opens eyes, and follows commands. She remains intubated with ventilation support. Also, the patient is on tube feeding. PHYSICAL EXAMINATION: HEENT: She is intubated, responsive. She is normocephalic and atraumatic. PERRLA. EOMs intact. Conjunctivae anicteric. The patient is orally intubated, but has moist mucous membranes. NECK: Supple and there were no meningeal signs. LUNGS: There are decreased breath sounds and rales. There is no wheezing. CARDIOVASCULAR: Heart, irregular rhythm. ABDOMEN: Soft, positive bowel sounds, has an intact PEG, no tenderness. EXTREMITIES: Lower extremities, no calf tenderness or cyanosis. LABORATORY DATA: Micro shows Staph aureus in the sputum culture, followup is negative for Staph aureus. WBC today is 9.6, hemoglobin 8.2, platelet count is 285. Sodium 138, potassium is 3.4, chloride is 103, BUN 41, creatinine 1.3, GFR is 40, glucose overall elevated. Chest x-ray shows bilateral multifocal infiltrates are again identified, slightly worsened at the right base, but otherwise unchanged. There is a trace of pleural effusion, stable cardiomegaly. IMPRESSION AND PLAN: Respiratory failure, the patient still on intubation, respiratory support, chronic obstructive pulmonary disease exacerbation, diabetes mellitus, healthcare-associated pneumonia, history of cardiac arrest, anemia, and atrial fibrillation. Chest x-ray has not improved and has been on Zosyn during this period. We have discussed with resident and we will add clindamycin 600 mg intravenous piggyback q. 8. Joshua Mosqueda MD MTDD
[2017-01-20] MEDS ORDERED: Dextrose 5%/0.45% NS 1,000 ML IV SCH (23:45)
[2017-01-21] MEDS: Clindamycin 600 MG in Sodium Chloride 0.9% 100 ML IVPB SCH ×3 (00:54→16:40)
[2017-01-21 04:59] LABS: BASO # 0.1 K/uL (0.0-0.2); BASO % 0.6 % (0.0-2.0); EOS % 0.1 % (0.0-4.0); HEMATOCRIT 22.8 % (34.0-47.0); LYMPH # 0.2 K/uL (1.0-4.3); MEAN CELL VOLUME 93.7 fl (81.0-99.0); MEAN CORPUSCULAR HEMOGLOBIN 30.3 pg (27.0-31.0); MEAN CORPUSCULAR HGB CONC 32.4 g/dL (33.0-37.0); MEAN PLATELET VOLUME 8.9 fl (7.2-11.7); MONO # 0.4 K/uL (0.0-0.8); MONO % 3.6 % (0.0-10.0); NEUT # 10.3 K/uL (1.8-7.0); NEUT % 93.7 % (50.0-75.0); NRBC % 0.1 % (0.0-0.0); PLATELET COUNT 296 K/uL (130-400)
[2017-01-21 05:03] LABS: ABG ALLEN TEST YES; ARTERIAL BLOOD GAS HCO3 24.1 mmol/L (21-28); ARTERIAL BLOOD GAS MODE CPAP; ARTERIAL BLOOD GAS O2 CAPACITY 15.4 mL/dL (16-24); ARTERIAL BLOOD GAS O2 CONTENT 15.3 ML/dL (15-23); ARTERIAL BLOOD GAS PH 7.33 (7.35-7.45); ARTERIAL BLOOD GAS PO2 145 mm/Hg (80-100); ARTERIAL BLOOD HGB O2 SAT 96.8 % (95.0-98.0); ATERIAL BLOOD GAS PEEP 5; CARBOXYHEMOGLOBIN 1.2 % (0.5-1.5); HHB 0.5 % (0.0-5.0); METHEMOGLOBIN 1.5 % (0.0-3.0)
[2017-01-21 05:09] LABS: ALB/GLOB RATIO 0.7 (1.0-2.1); BILIRUBIN,TOTAL 0.4 mg/dl (0.2-1.3); CALCIUM 8.2 mg/dL (8.4-10.2); POTASSIUM 4.1 MMOL/L (3.6-5.0); TOTAL PROTEIN 5.7 G/DL (6.3-8.2)
[2017-01-21] MEDS: Insulin Regular 100 units/ml SC SCH ×4 (06:22→23:20)
[2017-01-21 07:56] LABS: MEAN CELL VOLUME 94.6 fl (81.0-99.0); MEAN CORPUSCULAR HGB CONC 31.7 g/dL (33.0-37.0); RED CELL DISTRIBUTION WIDTH 20.2 % (11.5-14.5); WHITE BLOOD COUNT 12.6 K/uL (4.8-10.8)
[2017-01-21] MEDS: Acetylcysteine 10% 4 ML IH SCH ×3 (08:06→19:39)
[2017-01-21] MEDS: methylPREDNISolone 20 MG in Sodium Chloride 0.9% 50 ML IVPB SCH ×2 (08:46→20:34)
--- NOTE | 2017-01-21 09:05 | RAD ---
HISTORY: Re-evaluate endotracheal tube.Technique: Single view portable erect @ 07:15. COMPARISON: Multiple serial examinations preceding the most recent study: 01/19/2017. FINDINGS: LUNGS: Stable bilateral infiltrates primarily lower lobe distribution. PLEURA: No significant interval change compared to the prior examination(s). CARDIOVASCULAR: Cardiomegaly. No evidence of acute, significant cardiovascular disease. OSSEOUS STRUCTURES: No significant abnormalities. VISUALIZED UPPER ABDOMEN: Normal. OTHER FINDINGS: Satisfactory stable position of endotracheal tube. The tip is 2.5 cm above the collin. IMPRESSION: Stable extensive infiltrates and pleural effusions. Satisfactory position of endotracheal tube. No significant interval change compared to the prior examination(s).
[2017-01-21] MEDS ORDERED: Digoxin 500 mcg/2ml (0.5 mg/2ml) Inj ONE (09:41)
--- NOTE | 2017-01-21 09:41 | CP.PCM.PN ---
Subjective - Date & Time of Evaluation Date of Evaluation: 01/21/17 Time of Evaluation: 07:20 - Subjective Subjective: Patient seen and examined this AM. NNEKAO. Patient has been tolerating CPAP since 11AM yesterday and is now down to 40% FiO2, 5 PEEP with no negative sequela Objective - Vital Signs/Intake and Output Vital Signs (last 24 hours): Temp Pulse Resp BP Pulse Ox 97.9 F 78 12 124/82 100 01/21/17 08:00 01/21/17 09:00 01/21/17 09:00 01/21/17 09:00 01/21/17 09:00 Intake and Output: 01/21/17 01/21/17 06:59 18:59 Intake Total 1010 80 Output Total 625 Balance 385 80 - Medications Medications: Current Medications Acetaminophen (Tylenol 650mg/20.3ml Solution Ud) 650 mg PO Q6 PRN PRN Reason: fever Last Admin: 01/10/17 09:00 Dose: 650 mg Acetylcysteine (Mucomyst 10% 4ml) 2 ml IH RBID [facility] Last Admin: 01/21/17 08:06 Dose: Not Given Albuterol/Ipratropium (Duoneb 3 Mg/0.5 Mg (3 Ml) Ud) 3 ml INH RQ6 PRN PRN Reason: Shortness of Breath Last Admin: 01/20/17 19:46 Dose: 3 ml Famotidine (Pepcid) 20 mg PO Q12 [facility] Last Admin: 01/21/17 08:23 Dose: Not Given Methylprednisolone 20 mg/ (Sodium Chloride) 50 mls @ 100 mls/hr IVPB Q12 [facility] Last Admin: 01/21/17 08:46 Dose: 100 mls/hr Clindamycin Phosphate 600 mg/ (Sodium Chloride) 104 mls @ 104 mls/hr IVPB Q8 [facility] PRN Reason: Protocol Last Admin: 01/21/17 08:21 Dose: 104 mls/hr Piperacillin Sod/Tazobactam (Sod 2.25 gm/ Sodium Chloride) 100 mls @ 100 mls/ hr IVPB Q6 [facility] PRN Reason: Protocol Last Admin: 01/21/17 09:26 Dose: 100 mls/hr Dextrose/Sodium Chloride (Dextrose 5%-0.45% Ns 500 Ml) 500 mls @ 80 mls/hr IV .[id number] [facility] Stop: 01/21/17 16:00 Last Admin: 01/21/17 00:10 Dose: 80 mls/hr Insulin Human Regular (Humulin R) 0 units SC ACCU-CHECK [facility] PRN Reason: Protocol Last Admin: 01/21/17 06:22 Dose: 3 unit Rivaroxaban (Xarelto) 15 mg PO DAILY@1700 [facility] PRN Reason: Protocol Last Admin: 01/19/17 17:24 Dose: 15 mg - Labs Labs: 01/21/17 07:40 01/21/17 04:15 PT 10.7 Seconds (9.8-13.1) 01/21/17 04:15 INR 1.0 (0.9-1.2) 01/21/17 04:15 APTT 27.0 Seconds (25.6-37.1) 01/21/17 04:15 - Constitutional Appears: Non-toxic, No Acute Distress, Chronically Ill - Head Exam Head Exam: ATRAUMATIC, NORMOCEPHALIC - Eye Exam Eye Exam: Normal appearance. absent: Conjunctival injection, Scleral icterus - ENT Exam ENT Exam: Mucous Membranes Moist Additional comments: ETT in place - Respiratory Exam Respiratory Exam: NORMAL BREATHING PATTERN. absent: Accessory Muscle Use, Respiratory Distress - Cardiovascular Exam Cardiovascular Exam: RRR - GI/Abdominal Exam GI & Abdominal Exam: Soft. absent: Distended, Tenderness - Extremities Exam Extremities Exam: absent: Calf Tenderness, Pedal Edema, Tenderness - Neurological Exam Neurological Exam: Alert, Awake - Psychiatric Exam Psychiatric exam: Flat Affect, Normal Mood - Skin Skin Exam: Dry, Normal Color, Warm Assessment and Plan - Assessment and Plan (Free Text) Assessment: 71F with respiratory distress requiring mechanical ventilation Plan: -Patient tolerating CPAP with decreased mechanical ventilation requirements -Per ICU they will attempt weaning today -Will postpone surgery today, will follow up today and will make further recommendations pending course -Hold xarelto -Continue to trend labs -May restart tube feeds until further surgery plans are solidified -continue current medical management Discussed with DR. Fco Dillard, PGY2
[2017-01-21 09:44] LABS: LARGE PLATELETS PRESENT; MYELOCYTE 1 % (0-0); NEUTROPHIL 93 % (42-75); PLATELET CLUMPS PRESENT; TOTAL CELLS COUNTED 100
--- NOTE | 2017-01-21 10:11 | CP.CCUPN ---
<Perry Angelo - Last Filed: 01/21/17 11:14> CCU Subjective - Physician Review Subjective (Free Text): 01/21/17 10:05 Patient this morning. No acute distress, denies pain, responsive to name call, opens eyes, and follows commands. Patient remains intubated with ventilation support. Patient on CPAP. Patient continues to tolerate tube feed. Tracheostomy postponed due to rapid Afib. CCU Objective - Vital Signs / Intake & Output Vital Signs (Last 4 hours): Vital Signs Temp Pulse Resp BP Pulse Ox 01/21/17 09:00 78 12 124/82 100 01/21/17 08:00 97.9 F 108 H 30 H 129/67 100 01/21/17 07:59 139 H 18 97/60 L 94 L 01/21/17 07:57 171 H 22 103/70 100 Intake and Output (Last 8hrs): Intake & Output 01/20/17 01/21/17 01/21/17 22:59 06:59 14:59 Intake Total 880 590 80 Output Total 425 200 Balance 455 390 80 Weight 127 lb Intake: IV 160 490 80 Intake, Piggyback 200 Tube Feeding 320 Free Water Flush 200 100 Output: Urine 425 200 Urethral ([place]) 425 200 - Physical Exam Head: Positive for: Normocephalic Pupils: Positive for: PERRL Extroacular Muscles: Positive for: EOMI Conjunctiva: Positive for: Normal. Negative for: Icteric Mouth: Positive for: Moist Mucous Membranes Neck: Positive for: JVD. Negative for: Meningeal Signs Respiratory/Chest: Positive for: Decreased Breath Sounds, Rales. Negative for: Accessory Muscle Use, Wheezes Cardiovascular: Positive for: Irregular Rhythm. Negative for: Murmurs, Rub Abdomen: Positive for: Normal Bowel Sounds, Other (PEG intact). Negative for: Tenderness, Distention Lower Extremity: Positive for: NORMAL PULSES. Negative for: CALF TENDERNESS, Cyanosis Neurological: Positive for: Other (on ventilator) Skin: Positive for: Warm. Negative for: Rashes Psychiatric: Positive for: Alert - Medications Active Medications: Active Medications Generic Name Dose Route Start Last Admin Trade Name Freq PRN Reason Stop Dose Admin Acetaminophen 650 mg 01/10/17 08:40 01/10/17 09:00 Tylenol 650mg/20.3ml Solution Ud PO 650 mg Q6 PRN Administration fever Acetylcysteine 2 ml 01/20/17 20:00 01/21/17 08:06 Mucomyst 10% 4ml IH Not Given RBID LINA Albuterol/Ipratropium 3 ml 01/14/17 13:58 01/20/17 19:46 Duoneb 3 Mg/0.5 Mg (3 Ml) Ud INH 3 ml RQ6 PRN Administration Shortness of Breath Famotidine 20 mg 01/16/17 21:00 01/21/17 08:23 Pepcid PO Not Given Q12 LINA Methylprednisolone 20 mg/ 50 mls @ 100 mls/hr 01/20/17 21:00 01/21/17 08:46 Sodium Chloride IVPB 100 mls/hr Q12 LINA Administration Clindamycin Phosphate 600 mg/ 104 mls @ 104 mls/hr 01/20/17 17:00 01/21/17 08 :21 Sodium Chloride IVPB 104 mls/hr Q8 LINA Administration Protocol Piperacillin Sod/Tazobactam 100 mls @ 100 mls/hr 01/20/17 16:00 01/21/17 09: 26 Sod 2.25 gm/ Sodium Chloride IVPB 100 mls/hr Q6 LINA Administration Protocol Dextrose/Sodium Chloride 500 mls @ 80 mls/hr 01/21/17 01:00 01/21/17 00:10 Dextrose 5%-0.45% Ns 500 Ml IV 01/21/17 16:00 80 mls/hr .[id number] LINA Administration Insulin Human Regular 0 units 01/16/17 11:48 01/21/17 06:22 Humulin R SC 3 unit ACCU-CHECK LINA Administration Protocol Rivaroxaban 15 mg 01/16/17 17:00 01/19/17 17:24 Xarelto PO 15 mg DAILY@1700 LINA Administration Protocol - Patient Studies Lab Studies: Lab Studies 01/21/17 01/21/17 01/21/17 Range/Units 07:40 07:40 04:50 WBC 12.6 H (4.8-10.8) K/uL RBC 2.75 L (3.80-5.20) Mil/uL Hgb 8.2 L (12.0-16.0) g/dL Hct 26.0 L (34.0-47.0) % MCV 94.6 (81.0-99.0) fl MCH 30.0 (27.0-31.0) pg MCHC 31.7 L (33.0-37.0) g/dL RDW 20.2 H (11.5-14.5) % Plt Count 319 (130-400) K/uL MPV (7.2-11.7) fl Neut % (Auto) (50.0-75.0) % Lymph % (Auto) (20.0-40.0) % [place] % (Auto) (0.0-10.0) % Eos % (Auto) (0.0-4.0) % Baso % (Auto) (0.0-2.0) % Neut # (1.8-7.0) K/uL Lymph # (1.0-4.3) K/uL [place] # (0.0-0.8) K/uL Eos # (0.0-0.7) K/uL Baso # (0.0-0.2) K/uL Neutrophils % (Manual) (42-75) % Lymphocytes % (Manual) (20-50) % Monocytes % (Manual) (0-10) % Myelocytes % (0-0) % Toxic Granulation Platelet Estimate (NORMAL) Plt Clumps, EDTA Large Platelets Hypochromasia (manual) Anisocytosis (manual) Tear Drop Cells Ovalocytes Schistocytes PT (9.8-13.1) Seconds INR (0.9-1.2) APTT (25.6-37.1) Seconds pCO2 48 H (35-45) mm/Hg pO2 145 H (80-100) mm/Hg HCO3 24.1 (21-28) mmol/L ABG pH 7.33 L (7.35-7.45) ABG Total CO2 26.8 (22-28) mmol/L ABG O2 Saturation 99.5 H (95-98) % ABG O2 Content 15.3 (15-23) ML/dL ABG Base Excess -1.0 (-2.0-3.0) mmol/L ABG Hemoglobin 11.0 L (11.7-17.4) g/dL ABG Carboxyhemoglobin 1.2 (0.5-1.5) % POC ABG HHb (Measured) 0.5 (0.0-5.0) % ABG Methemoglobin 1.5 (0.0-3.0) % ABG O2 Capacity 15.4 L (16-24) mL/dL Rakan Test Yes A-a O2 Difference 152.0 mm/Hg Hgb O2 Saturation 96.8 (95.0-98.0) % Vent Mode Cpap FiO2 50.0 % PEEP 5 Pressure Support 15 Sodium (132-148) mmol/l Potassium (3.6-5.0) MMOL/L Chloride (98-107) mmol/L Carbon Dioxide (22-30) mmol/L Anion Gap (10-20) BUN (7-17) mg/dl Creatinine (0.7-1.2) mg/dL Est GFR ( Amer) Est GFR (Non-Af Amer) POC Glucose (mg/dL) (65-110) mg/dL Random Glucose (65-105) mg/dL Calcium (8.4-10.2) mg/dL Phosphorus (2.5-4.5) mg/dl Magnesium (1.6-2.3) MG/DL Total Bilirubin (0.2-1.3) mg/dl AST (14-36) U/L ALT (9-52) U/L Alkaline Phosphatase (38-126) U/L Total Protein (6.3-8.2) G/DL Albumin (3.5-5.0) g/dL Globulin (2.2-3.9) gm/dL Albumin/Globulin Ratio (1.0-2.1) Thyroxine (T4) (5.5-11.0) ug/dl Total T3 (1.49-2.60) nmol/L TSH 3rd Generation (0.46-4.68) mIU/ML Blood Type O POSITIVE Antibody Screen Negative BBK History Checked Patient has bt 01/21/17 01/21/17 01/21/17 Range/Units 04:19 04:15 04:15 WBC (4.8-10.8) K/uL RBC (3.80-5.20) Mil/uL Hgb (12.0-16.0) g/dL Hct (34.0-47.0) % MCV (81.0-99.0) fl MCH (27.0-31.0) pg MCHC (33.0-37.0) g/dL RDW (11.5-14.5) % Plt Count (130-400) K/uL MPV (7.2-11.7) fl Neut % (Auto) (50.0-75.0) % Lymph % (Auto) (20.0-40.0) % [place] % (Auto) (0.0-10.0) % Eos % (Auto) (0.0-4.0) % Baso % (Auto) (0.0-2.0) % Neut # (1.8-7.0) K/uL Lymph # (1.0-4.3) K/uL [place] # (0.0-0.8) K/uL Eos # (0.0-0.7) K/uL Baso # (0.0-0.2) K/uL Neutrophils % (Manual) (42-75) % Lymphocytes % (Manual) (20-50) % Monocytes % (Manual) (0-10) % Myelocytes % (0-0) % Toxic Granulation Platelet Estimate (NORMAL) Plt Clumps, EDTA Large Platelets Hypochromasia (manual) Anisocytosis (manual) Tear Drop Cells Ovalocytes Schistocytes PT 10.7 (9.8-13.1) Seconds INR 1.0 (0.9-1.2) APTT 27.0 (25.6-37.1) Seconds pCO2 (35-45) mm/Hg pO2 (80-100) mm/Hg HCO3 (21-28) mmol/L ABG pH (7.35-7.45) ABG Total CO2 (22-28) mmol/L ABG O2 Saturation (95-98) % ABG O2 Content (15-23) ML/dL ABG Base Excess (-2.0-3.0) mmol/L ABG Hemoglobin (11.7-17.4) g/dL ABG Carboxyhemoglobin (0.5-1.5) % POC ABG HHb (Measured) (0.0-5.0) % ABG Methemoglobin (0.0-3.0) % ABG O2 Capacity (16-24) mL/dL Rakan Test A-a O2 Difference mm/Hg Hgb O2 Saturation (95.0-98.0) % Vent Mode FiO2 % PEEP Pressure Support Sodium 137 (132-148) mmol/l Potassium 4.1 (3.6-5.0) MMOL/L Chloride 105 (98-107) mmol/L Carbon Dioxide 23 (22-30) mmol/L Anion Gap 14 (10-20) BUN 39 H (7-17) mg/dl Creatinine 1.2 (0.7-1.2) mg/dL Est GFR ( Amer) 53 Est GFR (Non-Af Amer) 44 POC Glucose (mg/dL) 232 H (65-110) mg/dL Random Glucose 190 H (65-105) mg/dL Calcium 8.2 L (8.4-10.2) mg/dL Phosphorus (2.5-4.5) mg/dl Magnesium (1.6-2.3) MG/DL Total Bilirubin 0.4 (0.2-1.3) mg/dl AST 28 (14-36) U/L ALT 24 (9-52) U/L Alkaline Phosphatase 53 (38-126) U/L Total Protein 5.7 L (6.3-8.2) G/DL Albumin 2.4 L (3.5-5.0) g/dL Globulin 3.3 (2.2-3.9) gm/dL Albumin/Globulin Ratio 0.7 L (1.0-2.1) Thyroxine (T4) (5.5-11.0) ug/dl Total T3 (1.49-2.60) nmol/L TSH 3rd Generation (0.46-4.68) mIU/ML Blood Type Antibody Screen BBK History Checked 01/21/17 01/20/17 01/20/17 Range/Units 04:15 21:55 16:06 WBC 11.0 H (4.8-10.8) K/uL RBC 2.44 L (3.80-5.20) Mil/uL Hgb 7.4 L (12.0-16.0) g/dL Hct 22.8 L (34.0-47.0) % MCV 93.7 (81.0-99.0) fl MCH 30.3 (27.0-31.0) pg MCHC 32.4 L (33.0-37.0) g/dL RDW 20.0 H (11.5-14.5) % Plt Count 296 (130-400) K/uL MPV 8.9 (7.2-11.7) fl Neut % (Auto) 93.7 H (50.0-75.0) % Lymph % (Auto) 2.0 L (20.0-40.0) % [place] % (Auto) 3.6 (0.0-10.0) % Eos % (Auto) 0.1 (0.0-4.0) % Baso % (Auto) 0.6 (0.0-2.0) % Neut # 10.3 H (1.8-7.0) K/uL Lymph # 0.2 L (1.0-4.3) K/uL [place] # 0.4 (0.0-0.8) K/uL Eos # 0.0 (0.0-0.7) K/uL Baso # 0.1 (0.0-0.2) K/uL Neutrophils % (Manual) 93 H (42-75) % Lymphocytes % (Manual) 3 L (20-50) % Monocytes % (Manual) 3 (0-10) % Myelocytes % 1 H (0-0) % Toxic Granulation Present Platelet Estimate Normal (NORMAL) Plt Clumps, EDTA Present Large Platelets Present Hypochromasia (manual) Slight Anisocytosis (manual) Moderate Tear Drop Cells Slight Ovalocytes Slight Schistocytes Slight PT (9.8-13.1) Seconds INR (0.9-1.2) APTT (25.6-37.1) Seconds pCO2 (35-45) mm/Hg pO2 (80-100) mm/Hg HCO3 (21-28) mmol/L ABG pH (7.35-7.45) ABG Total CO2 (22-28) mmol/L ABG O2 Saturation (95-98) % ABG O2 Content (15-23) ML/dL ABG Base Excess (-2.0-3.0) mmol/L ABG Hemoglobin (11.7-17.4) g/dL ABG Carboxyhemoglobin (0.5-1.5) % POC ABG HHb (Measured) (0.0-5.0) % ABG Methemoglobin (0.0-3.0) % ABG O2 Capacity (16-24) mL/dL Rakan Test A-a O2 Difference mm/Hg Hgb O2 Saturation (95.0-98.0) % Vent Mode FiO2 % PEEP Pressure Support Sodium (132-148) mmol/l Potassium (3.6-5.0) MMOL/L Chloride (98-107) mmol/L Carbon Dioxide (22-30) mmol/L Anion Gap (10-20) BUN (7-17) mg/dl Creatinine (0.7-1.2) mg/dL Est GFR ( Amer) Est GFR (Non-Af Amer) POC Glucose (mg/dL) 256 H 216 H (65-110) mg/dL Random Glucose (65-105) mg/dL Calcium (8.4-10.2) mg/dL Phosphorus (2.5-4.5) mg/dl Magnesium (1.6-2.3) MG/DL Total Bilirubin (0.2-1.3) mg/dl AST (14-36) U/L ALT (9-52) U/L Alkaline Phosphatase (38-126) U/L Total Protein (6.3-8.2) G/DL Albumin (3.5-5.0) g/dL Globulin (2.2-3.9) gm/dL Albumin/Globulin Ratio (1.0-2.1) Thyroxine (T4) (5.5-11.0) ug/dl Total T3 (1.49-2.60) nmol/L TSH 3rd Generation (0.46-4.68) mIU/ML Blood Type Antibody Screen BBK History Checked 01/20/17 01/20/17 Range/Units 11:14 11:09 WBC (4.8-10.8) K/uL RBC (3.80-5.20) Mil/uL Hgb (12.0-16.0) g/dL Hct (34.0-47.0) % MCV (81.0-99.0) fl MCH (27.0-31.0) pg MCHC (33.0-37.0) g/dL RDW (11.5-14.5) % Plt Count (130-400) K/uL MPV (7.2-11.7) fl Neut % (Auto) (50.0-75.0) % Lymph % (Auto) (20.0-40.0) % [place] % (Auto) (0.0-10.0) % Eos % (Auto) (0.0-4.0) % Baso % (Auto) (0.0-2.0) % Neut # (1.8-7.0) K/uL Lymph # (1.0-4.3) K/uL [place] # (0.0-0.8) K/uL Eos # (0.0-0.7) K/uL Baso # (0.0-0.2) K/uL Neutrophils % (Manual) (42-75) % Lymphocytes % (Manual) (20-50) % Monocytes % (Manual) (0-10) % Myelocytes % (0-0) % Toxic Granulation Platelet Estimate (NORMAL) Plt Clumps, EDTA Large Platelets Hypochromasia (manual) Anisocytosis (manual) Tear Drop Cells Ovalocytes Schistocytes PT (9.8-13.1) Seconds INR (0.9-1.2) APTT (25.6-37.1) Seconds pCO2 (35-45) mm/Hg pO2 (80-100) mm/Hg HCO3 (21-28) mmol/L ABG pH (7.35-7.45) ABG Total CO2 (22-28) mmol/L ABG O2 Saturation (95-98) % ABG O2 Content (15-23) ML/dL ABG Base Excess (-2.0-3.0) mmol/L ABG Hemoglobin (11.7-17.4) g/dL ABG Carboxyhemoglobin (0.5-1.5) % POC ABG HHb (Measured) (0.0-5.0) % ABG Methemoglobin (0.0-3.0) % ABG O2 Capacity (16-24) mL/dL Rakan Test A-a O2 Difference mm/Hg Hgb O2 Saturation (95.0-98.0) % Vent Mode FiO2 % PEEP Pressure Support Sodium (132-148) mmol/l Potassium (3.6-5.0) MMOL/L Chloride (98-107) mmol/L Carbon Dioxide (22-30) mmol/L Anion Gap (10-20) BUN (7-17) mg/dl Creatinine (0.7-1.2) mg/dL Est GFR ( Amer) Est GFR (Non-Af Amer) POC Glucose (mg/dL) 265 H (65-110) mg/dL Random Glucose (65-105) mg/dL Calcium (8.4-10.2) mg/dL Phosphorus 4.7 H (2.5-4.5) mg/dl Magnesium 2.2 (1.6-2.3) MG/DL Total Bilirubin (0.2-1.3) mg/dl AST (14-36) U/L ALT (9-52) U/L Alkaline Phosphatase (38-126) U/L Total Protein (6.3-8.2) G/DL Albumin (3.5-5.0) g/dL Globulin (2.2-3.9) gm/dL Albumin/Globulin Ratio (1.0-2.1) Thyroxine (T4) 2.90 L (5.5-11.0) ug/dl Total T3 0.365 L (1.49-2.60) nmol/L TSH 3rd Generation 1.87 (0.46-4.68) mIU/ML Blood Type Antibody Screen BBK History Checked Laboratory Results - last 24 hr 01/20/17 01/20/17 01/20/17 11:09 11:14 16:06 WBC RBC Hgb Hct MCV MCH MCHC RDW Plt Count MPV Neut % (Auto) Lymph % (Auto) [place] % (Auto) Eos % (Auto) Baso % (Auto) Neut # Lymph # [place] # Eos # Baso # Neutrophils % (Manual) Lymphocytes % (Manual) Monocytes % (Manual) Myelocytes % Toxic Granulation Platelet Estimate Plt Clumps, EDTA Large Platelets Hypochromasia (manual) Anisocytosis (manual) Tear Drop Cells Ovalocytes Schistocytes PT INR APTT pCO2 pO2 HCO3 ABG pH ABG Total CO2 ABG O2 Saturation ABG O2 Content ABG Base Excess ABG Hemoglobin ABG Carboxyhemoglobin POC ABG HHb (Measured) ABG Methemoglobin ABG O2 Capacity Rakan Test A-a O2 Difference Hgb O2 Saturation Vent Mode FiO2 PEEP Pressure Support Sodium Potassium Chloride Carbon Dioxide Anion Gap BUN Creatinine Est GFR ( Amer) Est GFR (Non-Af Amer) POC Glucose (mg/dL) 265 H 216 H Random Glucose Calcium Phosphorus 4.7 H Magnesium 2.2 Total Bilirubin AST ALT Alkaline Phosphatase Total Protein Albumin Globulin Albumin/Globulin Ratio Thyroxine (T4) 2.90 L Total T3 0.365 L TSH 3rd Generation 1.87 Blood Type Antibody Screen BBK History Checked 01/20/17 01/21/17 01/21/17 21:55 04:15 04:15 WBC 11.0 H RBC 2.44 L Hgb 7.4 L Hct 22.8 L MCV 93.7 MCH 30.3 MCHC 32.4 L RDW 20.0 H Plt Count 296 MPV 8.9 Neut % (Auto) 93.7 H Lymph % (Auto) 2.0 L [place] % (Auto) 3.6 Eos % (Auto) 0.1 Baso % (Auto) 0.6 Neut # 10.3 H Lymph # 0.2 L [place] # 0.4 Eos # 0.0 Baso # 0.1 Neutrophils % (Manual) 93 H Lymphocytes % (Manual) 3 L Monocytes % (Manual) 3 Myelocytes % 1 H Toxic Granulation Present Platelet Estimate Normal Plt Clumps, EDTA Present Large Platelets Present Hypochromasia (manual) Slight Anisocytosis (manual) Moderate Tear Drop Cells Slight Ovalocytes Slight Schistocytes Slight PT 10.7 INR 1.0 APTT 27.0 pCO2 pO2 HCO3 ABG pH ABG Total CO2 ABG O2 Saturation ABG O2 Content ABG Base Excess ABG Hemoglobin ABG Carboxyhemoglobin POC ABG HHb (Measured) ABG Methemoglobin ABG O2 Capacity Rakan Test A-a O2 Difference Hgb O2 Saturation Vent Mode FiO2 PEEP Pressure Support Sodium Potassium Chloride Carbon Dioxide Anion Gap BUN Creatinine Est GFR ( Amer) Est GFR (Non-Af Amer) POC Glucose (mg/dL) 256 H Random Glucose Calcium Phosphorus Magnesium Total Bilirubin AST ALT Alkaline Phosphatase Total Protein Albumin Globulin Albumin/Globulin Ratio Thyroxine (T4) Total T3 TSH 3rd Generation Blood Type Antibody Screen BBK History Checked 01/21/17 01/21/17 01/21/17 04:15 04:19 04:50 WBC RBC Hgb Hct MCV MCH MCHC RDW Plt Count MPV Neut % (Auto) Lymph % (Auto) [place] % (Auto) Eos % (Auto) Baso % (Auto) Neut # Lymph # [place] # Eos # Baso # Neutrophils % (Manual) Lymphocytes % (Manual) Monocytes % (Manual) Myelocytes % Toxic Granulation Platelet Estimate Plt Clumps, EDTA Large Platelets Hypochromasia (manual) Anisocytosis (manual) Tear Drop Cells Ovalocytes Schistocytes PT INR APTT pCO2 48 H pO2 145 H HCO3 24.1 ABG pH 7.33 L ABG Total CO2 26.8 ABG O2 Saturation 99.5 H ABG O2 Content 15.3 ABG Base Excess -1.0 ABG Hemoglobin 11.0 L ABG Carboxyhemoglobin 1.2 POC ABG HHb (Measured) 0.5 ABG Methemoglobin 1.5 ABG O2 Capacity 15.4 L Rakan Test Yes A-a O2 Difference 152.0 Hgb O2 Saturation 96.8 Vent Mode Cpap FiO2 50.0 PEEP 5 Pressure Support 15 Sodium 137 Potassium 4.1 Chloride 105 Carbon Dioxide 23 Anion Gap 14 BUN 39 H Creatinine 1.2 Est GFR ( Amer) 53 Est GFR (Non-Af Amer) 44 POC Glucose (mg/dL) 232 H Random Glucose 190 H Calcium 8.2 L Phosphorus Magnesium Total Bilirubin 0.4 AST 28 ALT 24 Alkaline Phosphatase 53 Total Protein 5.7 L Albumin 2.4 L Globulin 3.3 Albumin/Globulin Ratio 0.7 L Thyroxine (T4) Total T3 TSH 3rd Generation Blood Type Antibody Screen BBK History Checked 01/21/17 01/21/17 07:40 07:40 WBC 12.6 H RBC 2.75 L Hgb 8.2 L Hct 26.0 L MCV 94.6 MCH 30.0 MCHC 31.7 L RDW 20.2 H Plt Count 319 MPV Neut % (Auto) Lymph % (Auto) [place] % (Auto) Eos % (Auto) Baso % (Auto) Neut # Lymph # [place] # Eos # Baso # Neutrophils % (Manual) Lymphocytes % (Manual) Monocytes % (Manual) Myelocytes % Toxic Granulation Platelet Estimate Plt Clumps, EDTA Large Platelets Hypochromasia (manual) Anisocytosis (manual) Tear Drop Cells Ovalocytes Schistocytes PT INR APTT pCO2 pO2 HCO3 ABG pH ABG Total CO2 ABG O2 Saturation ABG O2 Content ABG Base Excess ABG Hemoglobin ABG Carboxyhemoglobin POC ABG HHb (Measured) ABG Methemoglobin ABG O2 Capacity Rakan Test A-a O2 Difference Hgb O2 Saturation Vent Mode FiO2 PEEP Pressure Support Sodium Potassium Chloride Carbon Dioxide Anion Gap BUN Creatinine Est GFR ( Amer) Est GFR (Non-Af Amer) POC Glucose (mg/dL) Random Glucose Calcium Phosphorus Magnesium Total Bilirubin AST ALT Alkaline Phosphatase Total Protein Albumin Globulin Albumin/Globulin Ratio Thyroxine (T4) Total T3 TSH 3rd Generation Blood Type O POSITIVE Antibody Screen Negative BBK History Checked Patient has bt Fingerstick Blood Sugar Results: 232 Review of Systems - Review of Systems Systems not reviewed;Unavailable: Intubated Critical Care Progress Note - Nutrition Nutrition: Nutrition Category Date Time Status NPO Diet [DIET] Diets 01/20/17 Dinner Active Assessment/Plan - Assessment and Plan (Free Text) Assessment: 71 y/o woman w/ pmh of PEG (placed 2 days prior to admission), bed bound, dementia, CHF EF 30%, AFib, HTN, and HLD in ICU for respiratory failure. Plan: Acute respiratory failure with hypercapnia - re-intubated 01/16/2017 - PRVC A/C rate 18, vol 380, PEEP 5, FIO2 40% - ABG s/p CPAP: pCO2 61, pO2 92, HCO3 23, pH 7.23 - attempt weening off ventilation - pulmonary support bed ordered - surgery recommendations appreciated - Pulmonary consult, Dr. Mendoza, recommendations appreciated COPD exacerbation - patient has history of emphysema - patient retaining CO2 - decreased methyprednisolone to 20 mg IV to Q12h - mucomyst 2 mL BID - increased duonebs to Q4h - chest PT Q4h s/p duoneb therapy I & O - positive balance - urine output from [place] 600 mL overnight - no diurectic at this time Diet - reports appetite - PEG placed due to poor nutrition - receiving tube feeds 40mL/hr - changed tube feeding to glucerna 1.2 - on sliding scale insulin Type 2 diabetes - newly diagnosed, HbA1c 6.9% - on insulin sliding scale HCAP (healthcare-associated pneumonia) - sputum culture 01/10/2017 grew Staph aureus susceptible to all antibiotics except penicillin - sputum culture 01/16/2017 shows normal oral errol - c/w IV Piperacillin Sod/Tazobactam 2.25 g Q6h day 11 - started clindamycin 600 mg IV Q8h day 1 - c/w tylenol for fever prn - ID consult, Dr. Mosqueda, recommendations appreciated Cardiac arrest - ACLS initiated in [facility], ROSC achieved priro to EMS arrival, intubated for agonal breathing - improved mental status, Patient awake, oriented, follow commands. - K+ normalized Anemia - anemic since admission, Hb 6.9 01/12/2017 - s/p 1 PRBC 01/12/2017 - No evidence of active bleeding, Hb 8.2 - type and cross done for possible tracheostomy Atrial fibrillation - chronic, home meds digoxin held - restarting digoxin, given 0.5 mg IV this morning - 0.25 mg for 14:00 and 18:00, to be held if heart rate below 65 - xarelto 15 mg PO daily - cardiac monitoring Prophylactic Measures - pepcid 20 mg IVP Q12 - SCDs - PT/OT eval/treat recommendations appreciated, on hold currently due to re- intubation <Troy Reyes - Last Filed: 01/21/17 16:02> Assessment/Plan - Assessment and Plan (Free Text) Plan: Attestation: Patient seen and examined at the bedside with Resident Dr. Barb Angelo; and I agree with his outline of plans and management documented below as discussed on AM rounds reflecting my review of all applicable clinical data, and participation in the care of the patient throughout the day in ICU; today, January 21, 2017. Poor tolerance to MV weans, but had tolerated being CPAP PS since 11 Am till 8AM today, albeit on a PS level of 15. Trach procedure finally cancelled today due to recurrent Rapid A Fib.
[2017-01-21] MEDS ORDERED: Digoxin 500 mcg/2ml (0.5 mg/2ml) Inj IVP ONE (10:21)
[2017-01-21 10:46] LABS: ABG ALLEN TEST YES; ARTERIAL BLOOD GAS O2 CAPACITY 12.7 mL/dL (16-24); ARTERIAL BLOOD GAS O2 CONTENT 12.6 ML/dL (15-23); ARTERIAL BLOOD GAS PH 7.23 (7.35-7.45); ARTERIAL BLOOD GAS PO2 92 mm/Hg (80-100); ARTERIAL BLOOD HGB O2 SAT 95.5 % (95.0-98.0); ATERIAL BLOOD GAS PEEP 5; CARBOXYHEMOGLOBIN 1.3 % (0.5-1.5); METHEMOGLOBIN 2.2 % (0.0-3.0)
[2017-01-21] MEDS: Albuterol-Ipratrop 3 mg / 0.5 (3 ml) UD INH SCH ×4 (10:59→23:07)
[2017-01-21] MEDS ORDERED: Albuterol-Ipratrop 3 mg / 0.5 (3 ml) UD INH SCH (14:00)
[2017-01-21] MEDS ORDERED: Digoxin 250 mcg (0.25 mg) Tab PO ONE ×2 (14:00→18:00)
--- NOTE | 2017-01-21 14:57 | CP.PCM.PN ---
Subjective - Date & Time of Evaluation Date of Evaluation: 01/21/17 Time of Evaluation: 07:00 - Subjective Subjective: Patient seen and examined at bedside with Dr. Templeton. Patient resting comfortably in no acute distress. Responds to her name. Patient still intubated , tracheostomy was postponed today because of the patients rapid A Fib. Objective - Vital Signs/Intake and Output Vital Signs (last 24 hours): Temp Pulse Resp BP Pulse Ox 97.5 F L 77 18 143/81 100 01/21/17 12:00 01/21/17 14:00 01/21/17 14:00 01/21/17 14:00 01/21/17 14:00 Intake and Output: 01/21/17 01/21/17 06:59 18:59 Intake Total 1010 540 Output Total 625 Balance 385 540 - Medications Medications: Current Medications Acetaminophen (Tylenol 650mg/20.3ml Solution Ud) 650 mg PO Q6 PRN PRN Reason: fever Last Admin: 01/10/17 09:00 Dose: 650 mg Acetylcysteine (Mucomyst 10% 4ml) 2 ml IH RBID [facility] Last Admin: 01/21/17 10:59 Dose: 2 ml Albuterol/Ipratropium (Duoneb 3 Mg/0.5 Mg (3 Ml) Ud) 3 ml INH RQ4 LINA Last Admin: 01/21/17 10:59 Dose: 3 ml Digoxin (Lanoxin) 0.25 mg PO ONCE ONE Stop: 01/21/17 18:01 Famotidine (Pepcid) 20 mg PO Q12 [facility] Last Admin: 01/21/17 08:23 Dose: Not Given Methylprednisolone 20 mg/ (Sodium Chloride) 50 mls @ 100 mls/hr IVPB Q12 [facility] Last Admin: 01/21/17 08:46 Dose: 100 mls/hr Clindamycin Phosphate 600 mg/ (Sodium Chloride) 104 mls @ 104 mls/hr IVPB Q8 [facility] PRN Reason: Protocol Last Admin: 01/21/17 08:21 Dose: 104 mls/hr Piperacillin Sod/Tazobactam (Sod 2.25 gm/ Sodium Chloride) 100 mls @ 100 mls/ hr IVPB Q6 [facility] PRN Reason: Protocol Last Admin: 01/21/17 09:26 Dose: 100 mls/hr Dextrose/Sodium Chloride (Dextrose 5%-0.45% Ns 500 Ml) 500 mls @ 80 mls/hr IV .Q6H15M [facility] Stop: 01/21/17 16:00 Last Admin: 01/21/17 00:10 Dose: 80 mls/hr Insulin Human Regular (Humulin R) 0 units SC ACCU-CHECK [facility] PRN Reason: Protocol Last Admin: 01/21/17 11:27 Dose: Not Given Metoprolol Tartrate (Lopressor) 12.5 mg PO Q12 [facility] Last Admin: 01/21/17 13:36 Dose: 12.5 mg Rivaroxaban (Xarelto) 15 mg PO DAILY@1700 [facility] PRN Reason: Protocol Last Admin: 01/19/17 17:24 Dose: 15 mg - Labs Labs: 01/21/17 07:40 01/21/17 04:15 PT 10.7 Seconds (9.8-13.1) 01/21/17 04:15 INR 1.0 (0.9-1.2) 01/21/17 04:15 APTT 27.0 Seconds (25.6-37.1) 01/21/17 04:15 - Constitutional Appears: No Acute Distress - Head Exam Head Exam: NORMAL INSPECTION - Respiratory Exam Respiratory Exam: Decreased Breath Sounds - Cardiovascular Exam Cardiovascular Exam: Irregular Rhythm - GI/Abdominal Exam GI & Abdominal Exam: Soft, Normal Bowel Sounds - Neurological Exam Neurological Exam: Alert, Awake - Skin Skin Exam: Normal Color, Warm Assessment and Plan - Assessment and Plan (Free Text) Assessment: 1) Acute respiratory failure w/ hypercapnia -re intubated 01/16/17 - ABG s/p CPAP: pCO2 61, pO2 92, HCO3 23, pH 7.23 - tolerating tube feedings: 40ml/hr - Tracheostomy on hold today, because of patients rapid A Fib 2) HCAP - ID consult appreciated. F/U with Dr. Mosqueda if needs to c/w abx 3) COPD exacerbation - retaining CO2 - decreased methyprednisolone to 20 mg IV to Q12h - Continue with Duoneb Q6 - mucomyst 2 mL BID - increased duonebs to Q4h 4) Type 2 DM - Newly diagnosed: 6.9 - on insulin sliding scale 5)Anemia - No evidence of active bleeding, Hb 9.3 6) Chronic Atrial fibrilation -xarelto restarted 15 mg PO - Digoxin currently held - 7) Prophylaxis SCD for DVT prophylaxis Pepcid for GI Px - PT/OT ordered: On hold do to reintubation
[2017-01-22] MEDS: Clindamycin 600 MG in Sodium Chloride 0.9% 100 ML IVPB SCH ×3 (00:06→16:30)
[2017-01-22 04:50] LABS: ABG ALLEN TEST YES; ABG MECHANICAL RATE 18; ARTERIAL BLOOD GAS HCO3 24.8 mmol/L (21-28); ARTERIAL BLOOD GAS MODE A/C; ARTERIAL BLOOD GAS O2 CAPACITY 11.5 mL/dL (16-24); ARTERIAL BLOOD GAS O2 CONTENT 11.6 ML/dL (15-23); ARTERIAL BLOOD GAS PH 7.44 (7.35-7.45); ARTERIAL BLOOD GAS PO2 141 mm/Hg (80-100); ARTERIAL BLOOD HGB O2 SAT 97.8 % (95.0-98.0); ATERIAL BLOOD GAS PEEP 5; CARBOXYHEMOGLOBIN 1.8 % (0.5-1.5); METHEMOGLOBIN 1.4 % (0.0-3.0)
[2017-01-22] MEDS: Albuterol-Ipratrop 3 mg / 0.5 (3 ml) UD INH SCH ×6 (05:00→23:52)
[2017-01-22 05:43] LABS: BASO % 0.1 % (0.0-2.0); EOS % 0.1 % (0.0-4.0); HEMATOCRIT 21.6 % (34.0-47.0); LYMPH # 0.2 K/uL (1.0-4.3); LYMPH % 1.6 % (20.0-40.0); MEAN CELL VOLUME 92.5 fl (81.0-99.0); MEAN CORPUSCULAR HEMOGLOBIN 30.5 pg (27.0-31.0); MEAN PLATELET VOLUME 8.5 fl (7.2-11.7); MONO # 0.4 K/uL (0.0-0.8); MONO % 3.1 % (0.0-10.0); NEUT # 10.8 K/uL (1.8-7.0); NEUT % 95.1 % (50.0-75.0); PLATELET COUNT 280 K/uL (130-400); RED CELL DISTRIBUTION WIDTH 19.2 % (11.5-14.5); WHITE BLOOD COUNT 11.3 K/uL (4.8-10.8)
[2017-01-22] MEDS: Insulin Regular 100 units/ml SC SCH ×4 (06:04→22:16)
[2017-01-22 07:48] LABS: ALB/GLOB RATIO 0.7 (1.0-2.1); BILIRUBIN,TOTAL 0.2 mg/dl (0.2-1.3); CALCIUM 7.9 mg/dL (8.4-10.2); POTASSIUM 3.5 MMOL/L (3.6-5.0); TOTAL PROTEIN 5.6 G/DL (6.3-8.2)
[2017-01-22] MEDS: Acetylcysteine 10% 4 ML IH SCH ×2 (07:56→19:38)
[2017-01-22] MEDS ORDERED: Potassium Chloride 20 mEq/15 ml LIQ UD NG ONE (08:04)
[2017-01-22] MEDS: methylPREDNISolone 20 MG in Sodium Chloride 0.9% 50 ML IVPB SCH (08:15)
--- NOTE | 2017-01-22 09:42 | RAD ---
HISTORY: Ventilator patient Technique: Single view portable erect @ 07:10 COMPARISON: Multiple serial examinations preceding the most recent study: January 21, 2017. Time of examination 07:15 FINDINGS: LUNGS: No appreciable change, extensive multifocal bilateral infiltrates. PLEURA: No significant pleural effusion identified, no pneumothorax apparent. CARDIOVASCULAR: No radiographic findings to suggest acute or significant cardiovascular disease. OSSEOUS STRUCTURES: No significant abnormalities. VISUALIZED UPPER ABDOMEN: Normal. OTHER FINDINGS: Stable position of endotracheal tube. IMPRESSION: No significant interval change compared to the prior examination(s).
[2017-01-22 11:14] LABS: NEUTROPHIL 96 % (42-75); TOTAL CELLS COUNTED 100
[2017-01-22 11:15] LABS: PLATELET CLUMPS PRESENT
--- NOTE | 2017-01-22 12:07 | CP.PCM.PN ---
Subjective - Date & Time of Evaluation Date of Evaluation: 01/22/17 Time of Evaluation: 09:20 - Subjective Subjective: General Surgery Pt S&E, Intubated. Afib with regular rate. FiO2 30% Objective - Vital Signs/Intake and Output Vital Signs (last 24 hours): Temp Pulse Resp BP Pulse Ox 99.2 F 86 18 138/86 100 01/22/17 08:00 01/22/17 10:00 01/22/17 10:00 01/22/17 10:00 01/22/17 10:00 Intake and Output: 01/22/17 01/22/17 06:59 18:59 Intake Total 1105 510 Output Total 570 Balance 535 510 - Medications Medications: Current Medications Acetaminophen (Tylenol 650mg/20.3ml Solution Ud) 650 mg PO Q6 PRN PRN Reason: fever Last Admin: 01/10/17 09:00 Dose: 650 mg Acetylcysteine (Mucomyst 10% 4ml) 2 ml IH RBID [facility] Last Admin: 01/22/17 07:56 Dose: 2 ml Albuterol/Ipratropium (Duoneb 3 Mg/0.5 Mg (3 Ml) Ud) 3 ml INH RQ4 [facility] Last Admin: 01/22/17 11:43 Dose: 3 ml Famotidine (Pepcid) 20 mg PO Q12 [facility] Last Admin: 01/22/17 08:15 Dose: 20 mg Clindamycin Phosphate 600 mg/ (Sodium Chloride) 104 mls @ 104 mls/hr IVPB Q8 [facility] PRN Reason: Protocol Last Admin: 01/22/17 08:57 Dose: 104 mls/hr Piperacillin Sod/Tazobactam (Sod 2.25 gm/ Sodium Chloride) 100 mls @ 100 mls/ hr IVPB Q6 [facility] PRN Reason: Protocol Last Admin: 01/22/17 10:11 Dose: 100 mls/hr Methylprednisolone 20 mg/ (Sodium Chloride) 100 mls @ 200 mls/hr IVPB Q12 [facility] Insulin Human Regular (Humulin R) 0 units SC ACCU-CHECK [facility] PRN Reason: Protocol Last Admin: 01/22/17 11:42 Dose: Not Given Metoprolol Tartrate (Lopressor) 12.5 mg PO Q12 [facility] Last Admin: 01/22/17 08:14 Dose: 12.5 mg Rivaroxaban (Xarelto) 15 mg PO DAILY@1700 [facility] PRN Reason: Protocol Last Admin: 01/21/17 16:42 Dose: 15 mg - Labs Labs: 01/22/17 04:20 01/22/17 04:20 PT 10.7 Seconds (9.8-13.1) 01/21/17 04:15 INR 1.0 (0.9-1.2) 01/21/17 04:15 APTT 27.0 Seconds (25.6-37.1) 01/21/17 04:15 - Constitutional Appears: Non-toxic, No Acute Distress - Head Exam Head Exam: ATRAUMATIC, NORMOCEPHALIC - Neck Exam Additional comments: trachea midline - Respiratory Exam Respiratory Exam: NORMAL BREATHING PATTERN (on vent). absent: Respiratory Distress - Cardiovascular Exam Cardiovascular Exam: Irregular Rhythm. absent: Tachycardia - GI/Abdominal Exam GI & Abdominal Exam: Soft. absent: Distended - Skin Skin Exam: Dry, Warm Assessment and Plan - Assessment and Plan (Free Text) Assessment: 71F with vent dependent respiratory failure Plan: -Cont to attempt weaning -Surgery next week if unable to wean -Hold xarelto -Cont current medical management D/W Dr. Fco Herrera PGY4
--- NOTE | 2017-01-22 13:08 | CP.CCUPN ---
<Perry Angelo - Last Filed: 01/22/17 12:23> CCU Subjective - Physician Review Subjective (Free Text): 01/22/17 12:23 Patient this morning. No acute distress, denies pain, responsive to name call, opens eyes, and follows commands. Patient remains intubated with ventilation support. Patient on PRVC A/C. Patient continues to tolerate tube feed. Tracheostomy postponed due to rapid Afib, planned tentatively for next week. Patient to receive 2 units PRBCs due to decreased Hb of 7.1 Critical Care Time Spent (in minutes): 35 CCU Objective - Vital Signs / Intake & Output Vital Signs (Last 4 hours): Vital Signs Pulse Resp BP Pulse Ox 01/22/17 10:00 86 18 138/86 100 Intake and Output (Last 8hrs): Intake & Output 01/21/17 01/22/17 01/22/17 22:59 06:59 14:59 Intake Total 700 825 510 Output Total 370 500 Balance 330 325 510 Weight 112 lb 9.6 oz Intake: IV 10 5 Intake, Piggyback 250 300 250 Tube Feeding 240 320 160 Free Water Flush 200 200 100 Output: Gastric Amount 70 Stomach 70 Urine 300 500 Urethral ([place]) 300 500 Other: # Bowel Movements 1 1 - Physical Exam Head: Positive for: Normocephalic Pupils: Positive for: PERRL Extroacular Muscles: Positive for: EOMI Conjunctiva: Positive for: Normal. Negative for: Icteric Mouth: Positive for: Moist Mucous Membranes Neck: Positive for: JVD. Negative for: Meningeal Signs Respiratory/Chest: Positive for: Decreased Breath Sounds, Rales. Negative for: Accessory Muscle Use, Wheezes Cardiovascular: Positive for: Irregular Rhythm. Negative for: Murmurs, Rub Abdomen: Positive for: Normal Bowel Sounds, Other (PEG intact). Negative for: Tenderness, Distention Lower Extremity: Positive for: NORMAL PULSES. Negative for: CALF TENDERNESS, Cyanosis Neurological: Positive for: Other (on ventilator) Skin: Positive for: Warm. Negative for: Rashes Psychiatric: Positive for: Alert - Medications Active Medications: Active Medications Generic Name Dose Route Start Last Admin Trade Name Freq PRN Reason Stop Dose Admin Acetaminophen 650 mg 01/10/17 08:40 01/10/17 09:00 Tylenol 650mg/20.3ml Solution Ud PO 650 mg Q6 PRN Administration fever Acetylcysteine 2 ml 01/20/17 20:00 01/22/17 07:56 Mucomyst 10% 4ml IH 2 ml RBID [facility] Administration Albuterol/Ipratropium 3 ml 01/21/17 12:00 01/22/17 11:43 Duoneb 3 Mg/0.5 Mg (3 Ml) Ud INH 3 ml RQ4 [facility] Administration Famotidine 20 mg 01/16/17 21:00 01/22/17 08:15 Pepcid PO 20 mg Q12 [facility] Administration Clindamycin Phosphate 600 mg/ 104 mls @ 104 mls/hr 01/20/17 17:00 01/22/17 08 :57 Sodium Chloride IVPB 104 mls/hr Q8 [facility] Administration Protocol Piperacillin Sod/Tazobactam 100 mls @ 100 mls/hr 01/20/17 16:00 01/22/17 10: 11 Sod 2.25 gm/ Sodium Chloride IVPB 100 mls/hr Q6 [facility] Administration Protocol Methylprednisolone 20 mg/ 100 mls @ 200 mls/hr 01/22/17 21:00 Sodium Chloride IVPB Q12 [facility] Insulin Human Regular 0 units 01/16/17 11:48 01/22/17 11:42 Humulin R SC Not Given ACCU-CHECK [facility] Protocol Metoprolol Tartrate 12.5 mg 01/21/17 10:15 01/22/17 08:14 Lopressor PO 12.5 mg Q12 [facility] Administration Rivaroxaban 15 mg 01/16/17 17:00 01/21/17 16:42 Xarelto PO 15 mg DAILY@1700 [facility] Administration Protocol - Patient Studies Lab Studies: Lab Studies 01/22/17 01/22/17 01/22/17 Range/Units 11:35 04:26 04:24 WBC (4.8-10.8) K/uL RBC (3.80-5.20) Mil/uL Hgb (12.0-16.0) g/dL Hct (34.0-47.0) % MCV (81.0-99.0) fl MCH (27.0-31.0) pg MCHC (33.0-37.0) g/dL RDW (11.5-14.5) % Plt Count (130-400) K/uL MPV (7.2-11.7) fl Neut % (Auto) (50.0-75.0) % Lymph % (Auto) (20.0-40.0) % [place] % (Auto) (0.0-10.0) % Eos % (Auto) (0.0-4.0) % Baso % (Auto) (0.0-2.0) % Neut # (1.8-7.0) K/uL Lymph # (1.0-4.3) K/uL [place] # (0.0-0.8) K/uL Eos # (0.0-0.7) K/uL Baso # (0.0-0.2) K/uL Neutrophils % (Manual) (42-75) % Lymphocytes % (Manual) (20-50) % Monocytes % (Manual) (0-10) % Platelet Estimate (NORMAL) Plt Clumps, EDTA Hypochromasia (manual) Anisocytosis (manual) Tear Drop Cells Ovalocytes [place] Cells Schistocytes pCO2 35 (35-45) mm/Hg pO2 141 H (80-100) mm/Hg HCO3 24.8 (21-28) mmol/L ABG pH 7.44 (7.35-7.45) ABG Total CO2 24.9 (22-28) mmol/L ABG O2 Saturation 101.0 H (95-98) % ABG O2 Content 11.6 L (15-23) ML/dL ABG Base Excess -0.2 (-2.0-3.0) mmol/L ABG Hemoglobin 8.2 L (11.7-17.4) g/dL ABG Carboxyhemoglobin 1.8 H (0.5-1.5) % POC ABG HHb (Measured) -1.0 L (0.0-5.0) % ABG Methemoglobin 1.4 (0.0-3.0) % ABG O2 Capacity 11.5 L (16-24) mL/dL Rakan Test Yes A-a O2 Difference 100.0 mm/Hg Hgb O2 Saturation 97.8 (95.0-98.0) % Vent Mode A/c Mechanical Rate 18 FiO2 40.0 % Tidal Volume 380 PEEP 5 Sodium (132-148) mmol/l Potassium (3.6-5.0) MMOL/L Chloride (98-107) mmol/L Carbon Dioxide (22-30) mmol/L Anion Gap (10-20) BUN (7-17) mg/dl Creatinine (0.7-1.2) mg/dL Est GFR ( Amer) Est GFR (Non-Af Amer) POC Glucose (mg/dL) 92 299 H (65-110) mg/dL Random Glucose (65-105) mg/dL Calcium (8.4-10.2) mg/dL Total Bilirubin (0.2-1.3) mg/dl AST (14-36) U/L ALT (9-52) U/L Alkaline Phosphatase (38-126) U/L Total Protein (6.3-8.2) G/DL Albumin (3.5-5.0) g/dL Globulin (2.2-3.9) gm/dL Albumin/Globulin Ratio (1.0-2.1) Blood Type Antibody Screen Crossmatch BBK History Checked 01/22/17 01/22/17 01/21/17 Range/Units 04:20 04:20 22:02 WBC 11.3 H (4.8-10.8) K/uL RBC 2.34 L (3.80-5.20) Mil/uL Hgb 7.1 L (12.0-16.0) g/dL Hct 21.6 L (34.0-47.0) % MCV 92.5 D (81.0-99.0) fl MCH 30.5 (27.0-31.0) pg MCHC 33.0 (33.0-37.0) g/dL RDW 19.2 H (11.5-14.5) % Plt Count 280 (130-400) K/uL MPV 8.5 (7.2-11.7) fl Neut % (Auto) 95.1 H (50.0-75.0) % Lymph % (Auto) 1.6 L (20.0-40.0) % [place] % (Auto) 3.1 (0.0-10.0) % Eos % (Auto) 0.1 (0.0-4.0) % Baso % (Auto) 0.1 (0.0-2.0) % Neut # 10.8 H (1.8-7.0) K/uL Lymph # 0.2 L (1.0-4.3) K/uL [place] # 0.4 (0.0-0.8) K/uL Eos # 0.0 (0.0-0.7) K/uL Baso # 0.0 (0.0-0.2) K/uL Neutrophils % (Manual) 96 H (42-75) % Lymphocytes % (Manual) 1 L (20-50) % Monocytes % (Manual) 3 (0-10) % Platelet Estimate Normal (NORMAL) Plt Clumps, EDTA Present Hypochromasia (manual) Moderate Anisocytosis (manual) Moderate Tear Drop Cells Slight Ovalocytes Slight [place] Cells Slight Schistocytes Slight pCO2 (35-45) mm/Hg pO2 (80-100) mm/Hg HCO3 (21-28) mmol/L ABG pH (7.35-7.45) ABG Total CO2 (22-28) mmol/L ABG O2 Saturation (95-98) % ABG O2 Content (15-23) ML/dL ABG Base Excess (-2.0-3.0) mmol/L ABG Hemoglobin (11.7-17.4) g/dL ABG Carboxyhemoglobin (0.5-1.5) % POC ABG HHb (Measured) (0.0-5.0) % ABG Methemoglobin (0.0-3.0) % ABG O2 Capacity (16-24) mL/dL Rakan Test A-a O2 Difference mm/Hg Hgb O2 Saturation (95.0-98.0) % Vent Mode Mechanical Rate FiO2 % Tidal Volume PEEP Sodium 136 (132-148) mmol/l Potassium 3.5 L (3.6-5.0) MMOL/L Chloride 106 (98-107) mmol/L Carbon Dioxide 23 (22-30) mmol/L Anion Gap 11 (10-20) BUN 33 H (7-17) mg/dl Creatinine 1.2 (0.7-1.2) mg/dL Est GFR ( Amer) 53 Est GFR (Non-Af Amer) 44 POC Glucose (mg/dL) 158 H (65-110) mg/dL Random Glucose 162 H (65-105) mg/dL Calcium 7.9 L (8.4-10.2) mg/dL Total Bilirubin 0.2 (0.2-1.3) mg/dl AST 33 (14-36) U/L ALT 28 (9-52) U/L Alkaline Phosphatase 77 (38-126) U/L Total Protein 5.6 L (6.3-8.2) G/DL Albumin 2.3 L (3.5-5.0) g/dL Globulin 3.3 (2.2-3.9) gm/dL Albumin/Globulin Ratio 0.7 L (1.0-2.1) Blood Type Antibody Screen Crossmatch BBK History Checked 01/21/17 01/21/17 Range/Units 16:33 07:40 WBC (4.8-10.8) K/uL RBC (3.80-5.20) Mil/uL Hgb (12.0-16.0) g/dL Hct (34.0-47.0) % MCV (81.0-99.0) fl MCH (27.0-31.0) pg MCHC (33.0-37.0) g/dL RDW (11.5-14.5) % Plt Count (130-400) K/uL MPV (7.2-11.7) fl Neut % (Auto) (50.0-75.0) % Lymph % (Auto) (20.0-40.0) % [place] % (Auto) (0.0-10.0) % Eos % (Auto) (0.0-4.0) % Baso % (Auto) (0.0-2.0) % Neut # (1.8-7.0) K/uL Lymph # (1.0-4.3) K/uL [place] # (0.0-0.8) K/uL Eos # (0.0-0.7) K/uL Baso # (0.0-0.2) K/uL Neutrophils % (Manual) (42-75) % Lymphocytes % (Manual) (20-50) % Monocytes % (Manual) (0-10) % Platelet Estimate (NORMAL) Plt Clumps, EDTA Hypochromasia (manual) Anisocytosis (manual) Tear Drop Cells Ovalocytes [place] Cells Schistocytes pCO2 (35-45) mm/Hg pO2 (80-100) mm/Hg HCO3 (21-28) mmol/L ABG pH (7.35-7.45) ABG Total CO2 (22-28) mmol/L ABG O2 Saturation (95-98) % ABG O2 Content (15-23) ML/dL ABG Base Excess (-2.0-3.0) mmol/L ABG Hemoglobin (11.7-17.4) g/dL ABG Carboxyhemoglobin (0.5-1.5) % POC ABG HHb (Measured) (0.0-5.0) % ABG Methemoglobin (0.0-3.0) % ABG O2 Capacity (16-24) mL/dL Rakan Test A-a O2 Difference mm/Hg Hgb O2 Saturation (95.0-98.0) % Vent Mode Mechanical Rate FiO2 % Tidal Volume PEEP Sodium (132-148) mmol/l Potassium (3.6-5.0) MMOL/L Chloride (98-107) mmol/L Carbon Dioxide (22-30) mmol/L Anion Gap (10-20) BUN (7-17) mg/dl Creatinine (0.7-1.2) mg/dL Est GFR ( Amer) Est GFR (Non-Af Amer) POC Glucose (mg/dL) 273 H (65-110) mg/dL Random Glucose (65-105) mg/dL Calcium (8.4-10.2) mg/dL Total Bilirubin (0.2-1.3) mg/dl AST (14-36) U/L ALT (9-52) U/L Alkaline Phosphatase (38-126) U/L Total Protein (6.3-8.2) G/DL Albumin (3.5-5.0) g/dL Globulin (2.2-3.9) gm/dL Albumin/Globulin Ratio (1.0-2.1) Blood Type O POSITIVE Antibody Screen Negative Crossmatch See Detail BBK History Checked Patient has bt Laboratory Results - last 24 hr 01/21/17 01/21/17 01/21/17 07:40 16:33 22:02 WBC RBC Hgb Hct MCV MCH MCHC RDW Plt Count MPV Neut % (Auto) Lymph % (Auto) [place] % (Auto) Eos % (Auto) Baso % (Auto) Neut # Lymph # [place] # Eos # Baso # Neutrophils % (Manual) Lymphocytes % (Manual) Monocytes % (Manual) Platelet Estimate Plt Clumps, EDTA Hypochromasia (manual) Anisocytosis (manual) Tear Drop Cells Ovalocytes [place] Cells Schistocytes pCO2 pO2 HCO3 ABG pH ABG Total CO2 ABG O2 Saturation ABG O2 Content ABG Base Excess ABG Hemoglobin ABG Carboxyhemoglobin POC ABG HHb (Measured) ABG Methemoglobin ABG O2 Capacity Rakan Test A-a O2 Difference Hgb O2 Saturation Vent Mode Mechanical Rate FiO2 Tidal Volume PEEP Sodium Potassium Chloride Carbon Dioxide Anion Gap BUN Creatinine Est GFR ( Amer) Est GFR (Non-Af Amer) POC Glucose (mg/dL) 273 H 158 H Random Glucose Calcium Total Bilirubin AST ALT Alkaline Phosphatase Total Protein Albumin Globulin Albumin/Globulin Ratio Blood Type O POSITIVE Antibody Screen Negative Crossmatch See Detail BBK History Checked Patient has bt 01/22/17 01/22/17 01/22/17 04:20 04:20 04:24 WBC 11.3 H RBC 2.34 L Hgb 7.1 L Hct 21.6 L MCV 92.5 D MCH 30.5 MCHC 33.0 RDW 19.2 H Plt Count 280 MPV 8.5 Neut % (Auto) 95.1 H Lymph % (Auto) 1.6 L [place] % (Auto) 3.1 Eos % (Auto) 0.1 Baso % (Auto) 0.1 Neut # 10.8 H Lymph # 0.2 L [place] # 0.4 Eos # 0.0 Baso # 0.0 Neutrophils % (Manual) 96 H Lymphocytes % (Manual) 1 L Monocytes % (Manual) 3 Platelet Estimate Normal Plt Clumps, EDTA Present Hypochromasia (manual) Moderate Anisocytosis (manual) Moderate Tear Drop Cells Slight Ovalocytes Slight [place] Cells Slight Schistocytes Slight pCO2 pO2 HCO3 ABG pH ABG Total CO2 ABG O2 Saturation ABG O2 Content ABG Base Excess ABG Hemoglobin ABG Carboxyhemoglobin POC ABG HHb (Measured) ABG Methemoglobin ABG O2 Capacity Rakan Test A-a O2 Difference Hgb O2 Saturation Vent Mode Mechanical Rate FiO2 Tidal Volume PEEP Sodium 136 Potassium 3.5 L Chloride 106 Carbon Dioxide 23 Anion Gap 11 BUN 33 H Creatinine 1.2 Est GFR ( Amer) 53 Est GFR (Non-Af Amer) 44 POC Glucose (mg/dL) 299 H Random Glucose 162 H Calcium 7.9 L Total Bilirubin 0.2 AST 33 ALT 28 Alkaline Phosphatase 77 Total Protein 5.6 L Albumin 2.3 L Globulin 3.3 Albumin/Globulin Ratio 0.7 L Blood Type Antibody Screen Crossmatch BBK History Checked 01/22/17 01/22/17 04:26 11:35 WBC RBC Hgb Hct MCV MCH MCHC RDW Plt Count MPV Neut % (Auto) Lymph % (Auto) [place] % (Auto) Eos % (Auto) Baso % (Auto) Neut # Lymph # [place] # Eos # Baso # Neutrophils % (Manual) Lymphocytes % (Manual) Monocytes % (Manual) Platelet Estimate Plt Clumps, EDTA Hypochromasia (manual) Anisocytosis (manual) Tear Drop Cells Ovalocytes [place] Cells Schistocytes pCO2 35 pO2 141 H HCO3 24.8 ABG pH 7.44 ABG Total CO2 24.9 ABG O2 Saturation 101.0 H ABG O2 Content 11.6 L ABG Base Excess -0.2 ABG Hemoglobin 8.2 L ABG Carboxyhemoglobin 1.8 H POC ABG HHb (Measured) -1.0 L ABG Methemoglobin 1.4 ABG O2 Capacity 11.5 L Rakan Test Yes A-a O2 Difference 100.0 Hgb O2 Saturation 97.8 Vent Mode A/c Mechanical Rate 18 FiO2 40.0 Tidal Volume 380 PEEP 5 Sodium Potassium Chloride Carbon Dioxide Anion Gap BUN Creatinine Est GFR ( Amer) Est GFR (Non-Af Amer) POC Glucose (mg/dL) 92 Random Glucose Calcium Total Bilirubin AST ALT Alkaline Phosphatase Total Protein Albumin Globulin Albumin/Globulin Ratio Blood Type Antibody Screen Crossmatch BBK History Checked Fingerstick Blood Sugar Results: 92 Assessment/Plan - Assessment and Plan (Free Text) Assessment: 71 y/o woman w/ pmh of PEG (placed 2 days prior to admission), bed bound, dementia, CHF EF 30%, AFib, HTN, and HLD in ICU for respiratory failure. Plan: Acute respiratory failure with hypercapnia - re-intubated 01/16/2017 - PRVC A/C rate 18, vol 380, PEEP 5, FIO2 30% - ABG: pCO2 35, pO2 141, HCO3 24.8, pH 7.44 - CXR 01/22/2017: tenting of the right hemidiaphragm, possible RML or RLL atelectasis - continue weening off ventilation - pulmonary support bed ordered - tracheostomy postponed due to rapid Afib, tentatively planned for next week - surgery recommendations appreciated - Pulmonary consult, Dr. Mendoza, recommendations appreciated COPD exacerbation - patient has history of emphysema - patient retaining CO2 - c/w methyprednisolone to 20 mg IV to Q12h - c/w mucomyst 2 mL BID - c/w duonebs to Q4h - c/w chest PT Q4h s/p duoneb therapy I & O - positive balance - urine output from [place] 800 mL overnight - no diurectic at this time Diet - reports appetite - PEG placed due to poor nutrition - receiving tube feeds 40mL/hr - c/w glucerna 1.2 - on sliding scale insulin Type 2 diabetes - newly diagnosed, HbA1c 6.9% - on insulin sliding scale HCAP (healthcare-associated pneumonia) - sputum culture 01/10/2017 grew Staph aureus susceptible to all antibiotics except penicillin - sputum culture 01/16/2017 shows normal oral errol - c/w IV Piperacillin Sod/Tazobactam 2.25 g Q6h day 12 - started clindamycin 600 mg IV Q8h day 2 - c/w tylenol for fever prn - ID consult, Dr. Mosqueda, recommendations appreciated - PICC line ordered for better intravascular access Cardiac arrest - ACLS initiated in retirement, ROSC achieved prior to EMS arrival, intubated for agonal breathing - improved mental status, Patient awake, oriented, follow commands. - K+ normalized Anemia - anemic since admission, Hb 6.9 01/12/2017 - s/p 1 PRBC 01/12/2017 - No evidence of active bleeding, Hb 7.1 - type and cross done - patient to receive 2 units PRBC Atrial fibrillation - chronic, home meds digoxin held - restarting digoxin, given 0.5 mg IV this morning - 0.25 mg for 14:00 and 18:00, to be held if heart rate below 65 - xarelto 15 mg PO daily - home dose digoxin restarted 0.125 mg PO daily - lopressor 12.5 mg PO Q12h restarted for tachycarida - cardiac monitoring Prophylactic Measures - pepcid 20 mg IVP Q12 - SCDs - PT/OT eval/treat recommendations appreciated, on hold currently due to re- intubation <Troy Reyes - Last Filed: 01/22/17 13:38> Assessment/Plan - Assessment and Plan (Free Text) Plan: Attestation: Patient seen and examined at the bedside with Resident Dr. Barb Angelo; and I agree with his outline of plans and management documented below as discussed on AM rounds reflecting my review of all applicable clinical data, and participation in the care of the patient throughout the day in ICU; today, January 22, 2017. No MV weans today, waiting for further optimization with PRBCs today and Pulm Sport bed placement for chest physiotherapy. CXR shows tenting of R hemidiaphragm c/w juxtaphrenic sign and lobar collapse.
[2017-01-22] MEDS: Digoxin 125 mcg (0.125 mg) Tab PO SCH (17:11)
--- NOTE | 2017-01-22 19:10 | CP.PCM.PN ---
Subjective - Date & Time of Evaluation Date of Evaluation: 01/22/17 Time of Evaluation: 07:00 - Subjective Subjective: Patient was seen and examined at bedside with Dr. Templeton this morning. PAtient was able to open her eyes when calling her name. Patient is still intubated. Tracheostomy has been postponed because of the tracheostomy Objective - Vital Signs/Intake and Output Vital Signs (last 24 hours): Temp Pulse Resp BP Pulse Ox 98.9 F 103 H 18 122/73 99 01/22/17 18:00 01/22/17 18:00 01/22/17 18:00 01/22/17 18:00 01/22/17 18:00 Intake and Output: 01/22/17 01/23/17 18:59 06:59 Intake Total 1560 Balance 1560 - Medications Medications: Current Medications Acetaminophen (Tylenol 650mg/20.3ml Solution Ud) 650 mg PO Q6 PRN PRN Reason: fever Last Admin: 01/10/17 09:00 Dose: 650 mg Acetylcysteine (Mucomyst 10% 4ml) 2 ml IH RBID [facility] Last Admin: 01/22/17 07:56 Dose: 2 ml Albuterol/Ipratropium (Duoneb 3 Mg/0.5 Mg (3 Ml) Ud) 3 ml INH RQ4 [facility] Last Admin: 01/22/17 15:18 Dose: 3 ml Digoxin (Lanoxin) 0.125 mg PO DAILY@1800 [facility] Last Admin: 01/22/17 17:11 Dose: 0.125 mg Famotidine (Pepcid) 20 mg PO Q12 [facility] Last Admin: 01/22/17 08:15 Dose: 20 mg Clindamycin Phosphate 600 mg/ (Sodium Chloride) 104 mls @ 104 mls/hr IVPB Q8 [facility] PRN Reason: Protocol Last Admin: 01/22/17 16:30 Dose: 104 mls/hr Piperacillin Sod/Tazobactam (Sod 2.25 gm/ Sodium Chloride) 100 mls @ 100 mls/ hr IVPB Q6 [facility] PRN Reason: Protocol Last Admin: 01/22/17 15:25 Dose: 100 mls/hr Methylprednisolone 20 mg/ (Sodium Chloride) 100 mls @ 200 mls/hr IVPB Q12 [facility] Insulin Human Regular (Humulin R) 0 units SC ACCU-CHECK [facility] PRN Reason: Protocol Last Admin: 01/22/17 16:31 Dose: 2 unit Metoprolol Tartrate (Lopressor) 12.5 mg PO Q12 [facility] Last Admin: 01/22/17 08:14 Dose: 12.5 mg Rivaroxaban (Xarelto) 15 mg PO DAILY@1700 [facility] PRN Reason: Protocol Last Admin: 01/22/17 16:29 Dose: 15 mg - Labs Labs: 01/22/17 04:20 01/22/17 04:20 PT 10.7 Seconds (9.8-13.1) 01/21/17 04:15 INR 1.0 (0.9-1.2) 01/21/17 04:15 APTT 27.0 Seconds (25.6-37.1) 01/21/17 04:15 - Constitutional Appears: No Acute Distress - Head Exam Head Exam: NORMAL INSPECTION - Respiratory Exam Respiratory Exam: Decreased Breath Sounds, Rales, Rhonchi - Cardiovascular Exam Cardiovascular Exam: Irregular Rhythm - GI/Abdominal Exam GI & Abdominal Exam: Soft, Normal Bowel Sounds. absent: Tenderness - Extremities Exam Extremities Exam: absent: Calf Tenderness - Neurological Exam Neurological Exam: Alert - Skin Skin Exam: Dry, Warm Assessment and Plan - Assessment and Plan (Free Text) Assessment: 1) Acute respiratory failure w/ hypercapnia -re intubated 01/16/17 - ABG pCO2 35, pO2 141, HCO3 24.8, pH 7.44 CXR 01/22/2017: tenting of the right hemidiaphragm, possible RML or RLL atelectasis - tolerating tube feedings: 40ml/hr - Tracheostomy on hold, because of patients rapid A Fib 2) HCAP - ID consult appreciated. F/U with Dr. Mosqueda if needs to c/w abx 3) COPD exacerbation - retaining CO2 - methyprednisolone to 20 mg IV to Q12h - Continue with Duoneb Q4 - mucomyst 2 mL BID 4) Type 2 DM - Newly diagnosed: 6.9 - on insulin sliding scale 5)Anemia - Hb 7.1 - PAtient recieving 2 units of PRBC 6) Chronic Atrial fibrilation -xarelto 15 mg PO - Digoxin .5 mg - Lopresor 12.5 mg PO -cardiac monitoring - 7) Prophylaxis SCD for DVT prophylaxis Pepcid for GI Px - PT/OT ordered: On hold do to reintubation
[2017-01-22] MEDS: methylPREDNISolone 20 MG in Sodium Chloride 0.9% 100 ML IVPB SCH (20:51)
[2017-01-22 21:16] LABS: FT3 1.96 pg/mL (2.77-5.27)
[2017-01-23] MEDS: Clindamycin 600 MG in Sodium Chloride 0.9% 100 ML IVPB SCH ×3 (00:59→17:10)
[2017-01-23] MEDS: Albuterol-Ipratrop 3 mg / 0.5 (3 ml) UD INH SCH ×6 (03:48→23:53)
[2017-01-23 04:31] LABS: ABG ALLEN TEST YES; ABG MECHANICAL RATE 18; ARTERIAL BLOOD GAS HCO3 22.5 mmol/L (21-28); ARTERIAL BLOOD GAS MODE A/C; ARTERIAL BLOOD GAS O2 CAPACITY 15.3 mL/dL (16-24); ARTERIAL BLOOD GAS O2 CONTENT 14.9 ML/dL (15-23); ARTERIAL BLOOD GAS PH 7.32 (7.35-7.45); ARTERIAL BLOOD GAS PO2 73 mm/Hg (80-100); ARTERIAL BLOOD HGB O2 SAT 92.5 % (95.0-98.0); ATERIAL BLOOD GAS PEEP 5; CARBOXYHEMOGLOBIN 2.5 % (0.5-1.5); HHB 2.8 % (0.0-5.0); METHEMOGLOBIN 2.2 % (0.0-3.0)
[2017-01-23 05:26] LABS: HEMATOCRIT 33.5 % (34.0-47.0); MEAN CORPUSCULAR HEMOGLOBIN 28.7 pg (27.0-31.0); MEAN CORPUSCULAR HGB CONC 32.3 g/dL (33.0-37.0); RED CELL DISTRIBUTION WIDTH 22.2 % (11.5-14.5); WHITE BLOOD COUNT 11.1 K/uL (4.8-10.8)
[2017-01-23 05:30] LABS: CALCIUM 8.3 mg/dL (8.4-10.2); POTASSIUM 4.6 MMOL/L (3.6-5.0)
[2017-01-23] MEDS: Insulin Regular 100 units/ml SC SCH ×4 (06:31→22:17)
[2017-01-23] MEDS: Acetylcysteine 10% 4 ML IH SCH ×2 (08:14→19:11)
--- NOTE | 2017-01-23 08:37 | CP.PCM.PN ---
Subjective - Date & Time of Evaluation Date of Evaluation: 01/23/17 Time of Evaluation: 06:40 - Subjective Subjective: Patient seen and examined this AM. Patient still had episodes of afib with RVR yesterday. Mechanical ventilation requirements are decreased. Objective - Vital Signs/Intake and Output Vital Signs (last 24 hours): Temp Pulse Resp BP Pulse Ox 98.6 F 79 21 154/85 H 99 01/23/17 08:00 01/23/17 08:00 01/23/17 08:00 01/23/17 08:00 01/23/17 08:00 Intake and Output: 01/23/17 01/23/17 06:59 18:59 Intake Total 680 Balance 680 - Medications Medications: Current Medications Acetaminophen (Tylenol 650mg/20.3ml Solution Ud) 650 mg PO Q6 PRN PRN Reason: fever Last Admin: 01/10/17 09:00 Dose: 650 mg Acetylcysteine (Mucomyst 10% 4ml) 2 ml IH RBID [facility] Last Admin: 01/23/17 08:14 Dose: 2 ml Albuterol/Ipratropium (Duoneb 3 Mg/0.5 Mg (3 Ml) Ud) 3 ml INH RQ4 [facility] Last Admin: 01/23/17 08:14 Dose: 3 ml Digoxin (Lanoxin) 0.125 mg PO DAILY@1800 [facility] Last Admin: 01/22/17 17:11 Dose: 0.125 mg Famotidine (Pepcid) 20 mg PO Q12 [facility] Last Admin: 01/22/17 20:50 Dose: 20 mg Clindamycin Phosphate 600 mg/ (Sodium Chloride) 104 mls @ 104 mls/hr IVPB Q8 [facility] PRN Reason: Protocol Last Admin: 01/23/17 00:59 Dose: 104 mls/hr Piperacillin Sod/Tazobactam (Sod 2.25 gm/ Sodium Chloride) 100 mls @ 100 mls/ hr IVPB Q6 [facility] PRN Reason: Protocol Last Admin: 01/23/17 04:23 Dose: 100 mls/hr Methylprednisolone 20 mg/ (Sodium Chloride) 100 mls @ 200 mls/hr IVPB Q12 [facility] Last Admin: 01/22/17 20:51 Dose: 200 mls/hr Insulin Human Regular (Humulin R) 0 units SC ACCU-CHECK [facility] PRN Reason: Protocol Last Admin: 01/23/17 06:31 Dose: 2 unit Metoprolol Tartrate (Lopressor) 12.5 mg PO Q12 [facility] Last Admin: 01/22/17 20:50 Dose: 12.5 mg Rivaroxaban (Xarelto) 15 mg PO DAILY@1700 [facility] PRN Reason: Protocol Last Admin: 01/22/17 16:29 Dose: 15 mg - Labs Labs: 01/23/17 04:20 01/23/17 04:20 PT 10.7 Seconds (9.8-13.1) 01/21/17 04:15 INR 1.0 (0.9-1.2) 01/21/17 04:15 APTT 27.0 Seconds (25.6-37.1) 01/21/17 04:15 - Constitutional Appears: Non-toxic, No Acute Distress, Chronically Ill - Head Exam Head Exam: ATRAUMATIC, NORMOCEPHALIC - Eye Exam Eye Exam: Normal appearance. absent: Conjunctival injection, Scleral icterus - ENT Exam ENT Exam: Mucous Membranes Moist, Normal Oropharynx - Respiratory Exam Respiratory Exam: NORMAL BREATHING PATTERN. absent: Accessory Muscle Use, Respiratory Distress - Cardiovascular Exam Cardiovascular Exam: Irregular Rhythm - GI/Abdominal Exam GI & Abdominal Exam: absent: Distended - Neurological Exam Neurological Exam: Alert, Awake - Psychiatric Exam Psychiatric exam: Normal Affect, Normal Mood Assessment and Plan - Assessment and Plan (Free Text) Assessment: 71F with vent dependent respiratory failure Plan: -Cont to attempt weaning -Surgery next week if unable to wean and afib controlled -Hold xarelto -Cont current medical management D/W Dr. Fco Dillard, PGY2
[2017-01-23] MEDS: methylPREDNISolone 20 MG in Sodium Chloride 0.9% 100 ML IVPB SCH ×2 (08:55→20:17)
--- NOTE | 2017-01-23 10:24 | CP.CCUPN ---
<Perry Angelo - Last Filed: 01/23/17 11:05> CCU Subjective - Physician Review Subjective (Free Text): 01/23/17 09:37 Patient this morning. No acute distress, denies pain, responsive to name call, opens eyes, and follows commands. Patient remains intubated with ventilation support. Patient on PRVC A/C. Patient continues to tolerate tube feed. Tracheostomy postponed due to rapid Afib, planned tentatively for next week. Patient is s/p 2 units PRBCs, morning Hb 10.8 Critical Care Time Spent (in minutes): 35 CCU Objective - Vital Signs / Intake & Output Vital Signs (Last 4 hours): Vital Signs Temp Pulse Resp BP Pulse Ox 01/23/17 08:00 98.6 F 79 21 154/85 H 99 01/23/17 06:00 110 H 18 133/85 100 Intake and Output (Last 8hrs): Intake & Output 01/22/17 01/23/17 01/23/17 22:59 06:59 14:59 Intake Total 950 420 180 Balance 950 420 180 Weight 112 lb 6.972 oz Intake: Intake, Piggyback 100 Tube Feeding 320 320 80 Blood Product 330 Free Water Flush 200 100 100 - Physical Exam Head: Positive for: Normocephalic Pupils: Positive for: PERRL Extroacular Muscles: Positive for: EOMI Conjunctiva: Positive for: Normal. Negative for: Icteric Mouth: Positive for: Moist Mucous Membranes Neck: Positive for: JVD. Negative for: Meningeal Signs Respiratory/Chest: Positive for: Decreased Breath Sounds, Rales. Negative for: Accessory Muscle Use, Wheezes Cardiovascular: Positive for: Irregular Rhythm. Negative for: Murmurs, Rub Abdomen: Positive for: Normal Bowel Sounds, Other (PEG intact). Negative for: Tenderness, Distention Lower Extremity: Positive for: NORMAL PULSES. Negative for: CALF TENDERNESS, Cyanosis Neurological: Positive for: Other (on ventilator) Skin: Positive for: Warm. Negative for: Rashes Psychiatric: Positive for: Alert - Medications Active Medications: Active Medications Generic Name Dose Route Start Last Admin Trade Name Freq PRN Reason Stop Dose Admin Acetaminophen 650 mg 01/10/17 08:40 01/10/17 09:00 Tylenol 650mg/20.3ml Solution Ud PO 650 mg Q6 PRN Administration fever Acetylcysteine 2 ml 01/20/17 20:00 01/23/17 08:14 Mucomyst 10% 4ml IH 2 ml RBID [facility] Administration Albuterol/Ipratropium 3 ml 01/21/17 12:00 01/23/17 08:14 Duoneb 3 Mg/0.5 Mg (3 Ml) Ud INH 3 ml RQ4 [facility] Administration Digoxin 0.125 mg 01/22/17 18:00 01/22/17 17:11 Lanoxin PO 0.125 mg DAILY@1800 [facility] Administration Famotidine 20 mg 01/16/17 21:00 01/23/17 08:55 Pepcid PO 20 mg Q12 [facility] Administration Clindamycin Phosphate 600 mg/ 104 mls @ 104 mls/hr 01/20/17 17:00 01/23/17 08 :52 Sodium Chloride IVPB 104 mls/hr Q8 [facility] Administration Protocol Piperacillin Sod/Tazobactam 100 mls @ 100 mls/hr 01/20/17 16:00 01/23/17 09: 02 Sod 2.25 gm/ Sodium Chloride IVPB 100 mls/hr Q6 [facility] Administration Protocol Methylprednisolone 20 mg/ 100 mls @ 200 mls/hr 01/22/17 21:00 01/23/17 08:55 Sodium Chloride IVPB 200 mls/hr Q12 [facility] Administration Insulin Human Regular 0 units 01/16/17 11:48 01/23/17 06:31 Humulin R SC 2 unit ACCU-CHECK [facility] Administration Protocol Metoprolol Tartrate 12.5 mg 01/21/17 10:15 01/23/17 08:55 Lopressor PO 12.5 mg Q12 [facility] Administration Rivaroxaban 15 mg 01/16/17 17:00 01/22/17 16:29 Xarelto PO 15 mg DAILY@1700 [facility] Administration Protocol - Patient Studies Lab Studies: Lab Studies 01/23/17 01/23/17 01/23/17 Range/Units 06:28 04:25 04:20 WBC (4.8-10.8) K/uL RBC (3.80-5.20) Mil/uL Hgb (12.0-16.0) g/dL Hct (34.0-47.0) % MCV (81.0-99.0) fl MCH (27.0-31.0) pg MCHC (33.0-37.0) g/dL RDW (11.5-14.5) % Plt Count (130-400) K/uL Neutrophils % (Manual) (42-75) % Lymphocytes % (Manual) (20-50) % Monocytes % (Manual) (0-10) % Platelet Estimate (NORMAL) Plt Clumps, EDTA Hypochromasia (manual) Anisocytosis (manual) Tear Drop Cells Ovalocytes Marquez Cells Schistocytes pCO2 45 (35-45) mm/Hg pO2 73 L (80-100) mm/Hg HCO3 22.5 (21-28) mmol/L ABG pH 7.32 L (7.35-7.45) ABG Total CO2 24.6 (22-28) mmol/L ABG O2 Saturation 97.1 (95-98) % ABG O2 Content 14.9 L (15-23) ML/dL ABG Base Excess -3.0 L (-2.0-3.0) mmol/L ABG Hemoglobin 11.4 L (11.7-17.4) g/dL ABG Carboxyhemoglobin 2.5 H (0.5-1.5) % POC ABG HHb (Measured) 2.8 (0.0-5.0) % ABG Methemoglobin 2.2 (0.0-3.0) % ABG O2 Capacity 15.3 L (16-24) mL/dL Rakan Test Yes A-a O2 Difference 85.0 mm/Hg Hgb O2 Saturation 92.5 L (95.0-98.0) % Vent Mode A/c Mechanical Rate 18 FiO2 30.0 % Tidal Volume 380 PEEP 5 Sodium 136 (132-148) mmol/l Potassium 4.6 (3.6-5.0) MMOL/L Chloride 107 (98-107) mmol/L Carbon Dioxide 22 (22-30) mmol/L Anion Gap 13 (10-20) BUN 30 H (7-17) mg/dl Creatinine 1.1 (0.7-1.2) mg/dL Est GFR ( Amer) 59 Est GFR (Non-Af Amer) 49 POC Glucose (mg/dL) 182 H (65-110) mg/dL Random Glucose 170 H (65-105) mg/dL Calcium 8.3 L (8.4-10.2) mg/dL Free T3 pg/mL (2.77-5.27) pg/mL Blood Type Antibody Screen Crossmatch BBK History Checked 01/23/17 01/22/17 01/22/17 Range/Units 04:20 22:13 16:20 WBC 11.1 H (4.8-10.8) K/uL RBC 3.76 L (3.80-5.20) Mil/uL Hgb 10.8 L D (12.0-16.0) g/dL Hct 33.5 L (34.0-47.0) % MCV 89.0 D (81.0-99.0) fl MCH 28.7 (27.0-31.0) pg MCHC 32.3 L (33.0-37.0) g/dL RDW 22.2 H (11.5-14.5) % Plt Count 266 (130-400) K/uL Neutrophils % (Manual) (42-75) % Lymphocytes % (Manual) (20-50) % Monocytes % (Manual) (0-10) % Platelet Estimate (NORMAL) Plt Clumps, EDTA Hypochromasia (manual) Anisocytosis (manual) Tear Drop Cells Ovalocytes Edson Cells Schistocytes pCO2 (35-45) mm/Hg pO2 (80-100) mm/Hg HCO3 (21-28) mmol/L ABG pH (7.35-7.45) ABG Total CO2 (22-28) mmol/L ABG O2 Saturation (95-98) % ABG O2 Content (15-23) ML/dL ABG Base Excess (-2.0-3.0) mmol/L ABG Hemoglobin (11.7-17.4) g/dL ABG Carboxyhemoglobin (0.5-1.5) % POC ABG HHb (Measured) (0.0-5.0) % ABG Methemoglobin (0.0-3.0) % ABG O2 Capacity (16-24) mL/dL Rakan Test A-a O2 Difference mm/Hg Hgb O2 Saturation (95.0-98.0) % Vent Mode Mechanical Rate FiO2 % Tidal Volume PEEP Sodium (132-148) mmol/l Potassium (3.6-5.0) MMOL/L Chloride (98-107) mmol/L Carbon Dioxide (22-30) mmol/L Anion Gap (10-20) BUN (7-17) mg/dl Creatinine (0.7-1.2) mg/dL Est GFR ( Amer) Est GFR (Non-Af Amer) POC Glucose (mg/dL) 130 H 174 H (65-110) mg/dL Random Glucose (65-105) mg/dL Calcium (8.4-10.2) mg/dL Free T3 pg/mL (2.77-5.27) pg/mL Blood Type Antibody Screen Crossmatch BBK History Checked 01/22/17 01/22/17 01/22/17 Range/Units 11:35 04:20 04:20 WBC (4.8-10.8) K/uL RBC (3.80-5.20) Mil/uL Hgb (12.0-16.0) g/dL Hct (34.0-47.0) % MCV (81.0-99.0) fl MCH (27.0-31.0) pg MCHC (33.0-37.0) g/dL RDW (11.5-14.5) % Plt Count (130-400) K/uL Neutrophils % (Manual) 96 H (42-75) % Lymphocytes % (Manual) 1 L (20-50) % Monocytes % (Manual) 3 (0-10) % Platelet Estimate Normal (NORMAL) Plt Clumps, EDTA Present Hypochromasia (manual) Moderate Anisocytosis (manual) Moderate Tear Drop Cells Slight Ovalocytes Slight Edson Cells Slight Schistocytes Slight pCO2 (35-45) mm/Hg pO2 (80-100) mm/Hg HCO3 (21-28) mmol/L ABG pH (7.35-7.45) ABG Total CO2 (22-28) mmol/L ABG O2 Saturation (95-98) % ABG O2 Content (15-23) ML/dL ABG Base Excess (-2.0-3.0) mmol/L ABG Hemoglobin (11.7-17.4) g/dL ABG Carboxyhemoglobin (0.5-1.5) % POC ABG HHb (Measured) (0.0-5.0) % ABG Methemoglobin (0.0-3.0) % ABG O2 Capacity (16-24) mL/dL Rakan Test A-a O2 Difference mm/Hg Hgb O2 Saturation (95.0-98.0) % Vent Mode Mechanical Rate FiO2 % Tidal Volume PEEP Sodium (132-148) mmol/l Potassium (3.6-5.0) MMOL/L Chloride (98-107) mmol/L Carbon Dioxide (22-30) mmol/L Anion Gap (10-20) BUN (7-17) mg/dl Creatinine (0.7-1.2) mg/dL Est GFR ( Amer) Est GFR (Non-Af Amer) POC Glucose (mg/dL) 92 (65-110) mg/dL Random Glucose (65-105) mg/dL Calcium (8.4-10.2) mg/dL Free T3 pg/mL 1.96 L (2.77-5.27) pg/mL Blood Type Antibody Screen Crossmatch BBK History Checked 01/21/17 Range/Units 07:40 WBC (4.8-10.8) K/uL RBC (3.80-5.20) Mil/uL Hgb (12.0-16.0) g/dL Hct (34.0-47.0) % MCV (81.0-99.0) fl MCH (27.0-31.0) pg MCHC (33.0-37.0) g/dL RDW (11.5-14.5) % Plt Count (130-400) K/uL Neutrophils % (Manual) (42-75) % Lymphocytes % (Manual) (20-50) % Monocytes % (Manual) (0-10) % Platelet Estimate (NORMAL) Plt Clumps, EDTA Hypochromasia (manual) Anisocytosis (manual) Tear Drop Cells Ovalocytes Marquez Cells Schistocytes pCO2 (35-45) mm/Hg pO2 (80-100) mm/Hg HCO3 (21-28) mmol/L ABG pH (7.35-7.45) ABG Total CO2 (22-28) mmol/L ABG O2 Saturation (95-98) % ABG O2 Content (15-23) ML/dL ABG Base Excess (-2.0-3.0) mmol/L ABG Hemoglobin (11.7-17.4) g/dL ABG Carboxyhemoglobin (0.5-1.5) % POC ABG HHb (Measured) (0.0-5.0) % ABG Methemoglobin (0.0-3.0) % ABG O2 Capacity (16-24) mL/dL Rakan Test A-a O2 Difference mm/Hg Hgb O2 Saturation (95.0-98.0) % Vent Mode Mechanical Rate FiO2 % Tidal Volume PEEP Sodium (132-148) mmol/l Potassium (3.6-5.0) MMOL/L Chloride (98-107) mmol/L Carbon Dioxide (22-30) mmol/L Anion Gap (10-20) BUN (7-17) mg/dl Creatinine (0.7-1.2) mg/dL Est GFR ( Amer) Est GFR (Non-Af Amer) POC Glucose (mg/dL) (65-110) mg/dL Random Glucose (65-105) mg/dL Calcium (8.4-10.2) mg/dL Free T3 pg/mL (2.77-5.27) pg/mL Blood Type O POSITIVE Antibody Screen Negative Crossmatch See Detail BBK History Checked Patient has bt Laboratory Results - last 24 hr 01/21/17 01/22/17 01/22/17 07:40 04:20 04:20 WBC RBC Hgb Hct MCV MCH MCHC RDW Plt Count Neutrophils % (Manual) 96 H Lymphocytes % (Manual) 1 L Monocytes % (Manual) 3 Platelet Estimate Normal Plt Clumps, EDTA Present Hypochromasia (manual) Moderate Anisocytosis (manual) Moderate Tear Drop Cells Slight Ovalocytes Slight Edson Cells Slight Schistocytes Slight pCO2 pO2 HCO3 ABG pH ABG Total CO2 ABG O2 Saturation ABG O2 Content ABG Base Excess ABG Hemoglobin ABG Carboxyhemoglobin POC ABG HHb (Measured) ABG Methemoglobin ABG O2 Capacity Rakan Test A-a O2 Difference Hgb O2 Saturation Vent Mode Mechanical Rate FiO2 Tidal Volume PEEP Sodium Potassium Chloride Carbon Dioxide Anion Gap BUN Creatinine Est GFR ( Amer) Est GFR (Non-Af Amer) POC Glucose (mg/dL) Random Glucose Calcium Free T3 pg/mL 1.96 L Blood Type O POSITIVE Antibody Screen Negative Crossmatch See Detail BBK History Checked Patient has bt 01/22/17 01/22/17 01/22/17 11:35 16:20 22:13 WBC RBC Hgb Hct MCV MCH MCHC RDW Plt Count Neutrophils % (Manual) Lymphocytes % (Manual) Monocytes % (Manual) Platelet Estimate Plt Clumps, EDTA Hypochromasia (manual) Anisocytosis (manual) Tear Drop Cells Ovalocytes Marquez Cells Schistocytes pCO2 pO2 HCO3 ABG pH ABG Total CO2 ABG O2 Saturation ABG O2 Content ABG Base Excess ABG Hemoglobin ABG Carboxyhemoglobin POC ABG HHb (Measured) ABG Methemoglobin ABG O2 Capacity Rakan Test A-a O2 Difference Hgb O2 Saturation Vent Mode Mechanical Rate FiO2 Tidal Volume PEEP Sodium Potassium Chloride Carbon Dioxide Anion Gap BUN Creatinine Est GFR ( Amer) Est GFR (Non-Af Amer) POC Glucose (mg/dL) 92 174 H 130 H Random Glucose Calcium Free T3 pg/mL Blood Type Antibody Screen Crossmatch BBK History Checked 01/23/17 01/23/17 01/23/17 04:20 04:20 04:25 WBC 11.1 H RBC 3.76 L Hgb 10.8 L D Hct 33.5 L MCV 89.0 D MCH 28.7 MCHC 32.3 L RDW 22.2 H Plt Count 266 Neutrophils % (Manual) Lymphocytes % (Manual) Monocytes % (Manual) Platelet Estimate Plt Clumps, EDTA Hypochromasia (manual) Anisocytosis (manual) Tear Drop Cells Ovalocytes Edson Cells Schistocytes pCO2 45 pO2 73 L HCO3 22.5 ABG pH 7.32 L ABG Total CO2 24.6 ABG O2 Saturation 97.1 ABG O2 Content 14.9 L ABG Base Excess -3.0 L ABG Hemoglobin 11.4 L ABG Carboxyhemoglobin 2.5 H POC ABG HHb (Measured) 2.8 ABG Methemoglobin 2.2 ABG O2 Capacity 15.3 L Rakan Test Yes A-a O2 Difference 85.0 Hgb O2 Saturation 92.5 L Vent Mode A/c Mechanical Rate 18 FiO2 30.0 Tidal Volume 380 PEEP 5 Sodium 136 Potassium 4.6 Chloride 107 Carbon Dioxide 22 Anion Gap 13 BUN 30 H Creatinine 1.1 Est GFR ( Amer) 59 Est GFR (Non-Af Amer) 49 POC Glucose (mg/dL) Random Glucose 170 H Calcium 8.3 L Free T3 pg/mL Blood Type Antibody Screen Crossmatch BBK History Checked 01/23/17 06:28 WBC RBC Hgb Hct MCV MCH MCHC RDW Plt Count Neutrophils % (Manual) Lymphocytes % (Manual) Monocytes % (Manual) Platelet Estimate Plt Clumps, EDTA Hypochromasia (manual) Anisocytosis (manual) Tear Drop Cells Ovalocytes Edson Cells Schistocytes pCO2 pO2 HCO3 ABG pH ABG Total CO2 ABG O2 Saturation ABG O2 Content ABG Base Excess ABG Hemoglobin ABG Carboxyhemoglobin POC ABG HHb (Measured) ABG Methemoglobin ABG O2 Capacity Rakan Test A-a O2 Difference Hgb O2 Saturation Vent Mode Mechanical Rate FiO2 Tidal Volume PEEP Sodium Potassium Chloride Carbon Dioxide Anion Gap BUN Creatinine Est GFR ( Amer) Est GFR (Non-Af Amer) POC Glucose (mg/dL) 182 H Random Glucose Calcium Free T3 pg/mL Blood Type Antibody Screen Crossmatch BBK History Checked Fingerstick Blood Sugar Results: 182 Review of Systems - Review of Systems Systems not reviewed;Unavailable: Intubated Assessment/Plan - Assessment and Plan (Free Text) Assessment: 71 y/o woman w/ pmh of PEG (placed 2 days prior to admission), bed bound, dementia, CHF EF 30%, AFib, HTN, and HLD in ICU for respiratory failure. Plan: Acute respiratory failure with hypercapnia - re-intubated 01/16/2017 - PRVC A/C rate 18, vol 380, PEEP 5, FIO2 30% - ABG: pCO2 45, pO2 73, HCO3 22.5, pH 7.32 - CXR 01/23/2017: tenting not prominent, focal infiltrates remain unchanged - continue weening off ventilation - pulmonary support bed - tracheostomy postponed due to rapid Afib, tentatively planned for next week - surgery recommendations appreciated - Pulmonary consult, Dr. Mendoza, recommendations appreciated COPD exacerbation - patient has history of emphysema - patient retaining CO2 - c/w methyprednisolone to 20 mg IV to Q12h - c/w mucomyst 2 mL BID - c/w duonebs to Q4h - c/w chest PT Q4h s/p duoneb therapy I & O - positive balance - no diurectic at this time Diet - reports appetite - PEG placed due to poor nutrition - receiving tube feeds 40mL/hr - c/w glucerna 1.2 - on sliding scale insulin Type 2 diabetes - newly diagnosed, HbA1c 6.9% - on insulin sliding scale HCAP (healthcare-associated pneumonia) - sputum culture 01/10/2017 grew Staph aureus susceptible to all antibiotics except penicillin - sputum culture 01/16/2017 shows normal oral errol - c/w IV Piperacillin Sod/Tazobactam 2.25 g Q6h day 13 - started clindamycin 600 mg IV Q8h day 3 - c/w tylenol for fever prn - ID consult, Dr. Mosqueda, recommendations appreciated - PICC line today for better intravascular access Cardiac arrest - ACLS initiated in long-term, ROSC achieved prior to EMS arrival, intubated for agonal breathing - improved mental status, Patient awake, oriented, follow commands. - K+ normalized Anemia - anemic since admission, Hb 6.9 01/12/2017 - yesterday Hb 7.1 - s/p 2 PRBC 01/22/2017 - No evidence of active bleeding - repeat Hb 10.8 Atrial fibrillation - chronic, home meds restarted - xarelto 15 mg PO daily - digoxin 0.125 mg PO daily - lopressor 12.5 mg PO Q12h restarted for tachycarida - cardiac monitoring Prophylactic Measures - pepcid 20 mg IVP Q12 - SCDs - PT/OT eval/treat recommendations appreciated, on hold currently due to re- intubation <Troy Reyes - Last Filed: 01/23/17 11:23> Assessment/Plan - Assessment and Plan (Free Text) Plan: Attestation: Patient seen and examined at the bedside with Resident Dr. Barb Angelo; and I agree with his outline of plans and management documented below as discussed on AM rounds reflecting my review of all applicable clinical data, and participation in the care of the patient throughout the day in ICU; today, January 23, 2017.
--- NOTE | 2017-01-23 11:44 | CP.PCM.PN ---
Subjective - Date & Time of Evaluation Date of Evaluation: 01/23/17 Time of Evaluation: 09:00 - Subjective Subjective: - Patient was seen and examined at bedside with Dr. Templeton. Patient is still intubated. No overnight actives reported. Patient responds to voice and opens her eyes and follow commands. Tracheostomy was postponed due to rapid A Fib, planned tentatively for next week. Objective - Vital Signs/Intake and Output Vital Signs (last 24 hours): Temp Pulse Resp BP Pulse Ox 98.6 F 81 18 145/93 H 100 01/23/17 08:00 01/23/17 10:00 01/23/17 10:00 01/23/17 10:00 01/23/17 10:00 Intake and Output: 01/23/17 01/23/17 06:59 18:59 Intake Total 680 360 Balance 680 360 - Medications Medications: Current Medications Acetaminophen (Tylenol 650mg/20.3ml Solution Ud) 650 mg PO Q6 PRN PRN Reason: fever Last Admin: 01/10/17 09:00 Dose: 650 mg Acetylcysteine (Mucomyst 10% 4ml) 2 ml IH RBID [facility] Last Admin: 01/23/17 08:14 Dose: 2 ml Albuterol/Ipratropium (Duoneb 3 Mg/0.5 Mg (3 Ml) Ud) 3 ml INH RQ4 [facility] Last Admin: 01/23/17 08:14 Dose: 3 ml Digoxin (Lanoxin) 0.125 mg PO DAILY@1800 [facility] Last Admin: 01/22/17 17:11 Dose: 0.125 mg Famotidine (Pepcid) 20 mg PO Q12 [facility] Last Admin: 01/23/17 08:55 Dose: 20 mg Clindamycin Phosphate 600 mg/ (Sodium Chloride) 104 mls @ 104 mls/hr IVPB Q8 [facility] PRN Reason: Protocol Last Admin: 01/23/17 08:52 Dose: 104 mls/hr Piperacillin Sod/Tazobactam (Sod 2.25 gm/ Sodium Chloride) 100 mls @ 100 mls/ hr IVPB Q6 [facility] PRN Reason: Protocol Last Admin: 01/23/17 09:02 Dose: 100 mls/hr Methylprednisolone 20 mg/ (Sodium Chloride) 100 mls @ 200 mls/hr IVPB Q12 [facility] Last Admin: 01/23/17 08:55 Dose: 200 mls/hr Insulin Human Regular (Humulin R) 0 units SC ACCU-CHECK [facility] PRN Reason: Protocol Last Admin: 01/23/17 06:31 Dose: 2 unit Metoprolol Tartrate (Lopressor) 12.5 mg PO Q12 [facility] Last Admin: 01/23/17 08:55 Dose: 12.5 mg Rivaroxaban (Xarelto) 15 mg PO DAILY@1700 [facility] PRN Reason: Protocol Last Admin: 01/22/17 16:29 Dose: 15 mg - Labs Labs: 01/23/17 04:20 01/23/17 04:20 PT 10.7 Seconds (9.8-13.1) 01/21/17 04:15 INR 1.0 (0.9-1.2) 01/21/17 04:15 APTT 27.0 Seconds (25.6-37.1) 01/21/17 04:15 Assessment and Plan - Assessment and Plan (Free Text) Assessment: 1) Acute respiratory failure w/ hypercapnia -re intubated 01/16/17 - PRVC A/C rate 18, vol 380, PEEP 5, FIO2 30% - ABG: pCO2 45, pO2 73, HCO3 22.5, pH 7.32 - CXR 01/23/2017: tenting not prominent, focal infiltrates remain unchanged - Tracheostomy on hold, because of patients rapid A Fib 2) HCAP - c/w IV Piperacillin Sod/Tazobactam 2.25 g Q6h day 13 - started clindamycin 600 mg IV Q8h day 3 - ID consult appreciated. 3) COPD exacerbation - retaining CO2 - methyprednisolone to 20 mg IV to Q12h - Continue with Duoneb Q4 - mucomyst 2 mL BID - c/w chest PT Q4h s/p duoneb therapy 4) Type 2 DM - Newly diagnosed: 6.9 - on insulin sliding scale 5)Anemia - HB post transfusion of 2 units is HB of 10.8 6) Chronic Atrial fibrilation -xarelto 15 mg PO - Digoxin .125 mg - Lopresor 12.5 mg PO -cardiac monitoring - 7) Prophylaxis SCD for DVT prophylaxis Pepcid for GI Px - PT/OT ordered: On hold do to reintubation
--- NOTE | 2017-01-23 11:52 | RAD ---
HISTORY: ETT placement COMPARISON: 01/22/2017 FINDINGS: LUNGS: Bilateral multifocal patchy opacities , unchanged in extent from prior examination. PLEURA: Probable small bilateral pleural effusion. No pneumothorax. CARDIOVASCULAR: l normal heart size. Endotracheal tube tip approximately 12 mm above tracheal collin. OSSEOUS STRUCTURES: No significant abnormalities. VISUALIZED UPPER ABDOMEN: Normal. OTHER FINDINGS: None. IMPRESSION: Bilateral multifocal opacities. Small bilateral pleural effusion. ET tube approximately 12 mm above tracheal collin. This finding was discussed by telephone with the patient's nurse, Quita, at 11:45 a.m. on 01/23/2017.
[2017-01-23] MEDS: Digoxin 125 mcg (0.125 mg) Tab PO SCH (17:11)
--- NOTE | 2017-01-23 18:33 | CP.PCM.PN ---
Subjective - Date & Time of Evaluation Date of Evaluation: 01/23/17 Time of Evaluation: 18:30 - Subjective Subjective: i d note no improvement clinically or on cxr. will continue same rx re evaluate tomorrow Objective - Vital Signs/Intake and Output Vital Signs (last 24 hours): Temp Pulse Resp BP Pulse Ox 98 F 77 24 158/102 H 100 01/23/17 16:00 01/23/17 18:00 01/23/17 18:00 01/23/17 18:00 01/23/17 18:00 Intake and Output: 01/23/17 01/23/17 06:59 18:59 Intake Total 680 1280 Output Total 600 Balance 680 680 - Medications Medications: Current Medications Acetaminophen (Tylenol 650mg/20.3ml Solution Ud) 650 mg PO Q6 PRN PRN Reason: fever Last Admin: 01/10/17 09:00 Dose: 650 mg Acetylcysteine (Mucomyst 10% 4ml) 2 ml IH RBID [facility] Last Admin: 01/23/17 08:14 Dose: 2 ml Albuterol/Ipratropium (Duoneb 3 Mg/0.5 Mg (3 Ml) Ud) 3 ml INH RQ4 [facility] Last Admin: 01/23/17 15:37 Dose: 3 ml Digoxin (Lanoxin) 0.125 mg PO DAILY@1800 [facility] Last Admin: 01/23/17 17:11 Dose: 0.125 mg Famotidine (Pepcid) 20 mg PO Q12 [facility] Last Admin: 01/23/17 08:55 Dose: 20 mg Clindamycin Phosphate 600 mg/ (Sodium Chloride) 104 mls @ 104 mls/hr IVPB Q8 [facility] PRN Reason: Protocol Last Admin: 01/23/17 17:10 Dose: 104 mls/hr Piperacillin Sod/Tazobactam (Sod 2.25 gm/ Sodium Chloride) 100 mls @ 100 mls/ hr IVPB Q6 [facility] PRN Reason: Protocol Last Admin: 01/23/17 17:10 Dose: 100 mls/hr Methylprednisolone 20 mg/ (Sodium Chloride) 100 mls @ 200 mls/hr IVPB Q12 [facility] Last Admin: 01/23/17 08:55 Dose: 200 mls/hr Insulin Human Regular (Humulin R) 0 units SC ACCU-CHECK [facility] PRN Reason: Protocol Last Admin: 01/23/17 17:09 Dose: Not Given Metoprolol Tartrate (Lopressor) 12.5 mg PO Q12 [facility] Last Admin: 01/23/17 08:55 Dose: 12.5 mg Rivaroxaban (Xarelto) 15 mg PO DAILY@1700 [facility] PRN Reason: Protocol Last Admin: 01/23/17 17:11 Dose: 15 mg - Labs Labs: 01/23/17 04:20 01/23/17 04:20 PT 10.7 Seconds (9.8-13.1) 01/21/17 04:15 INR 1.0 (0.9-1.2) 01/21/17 04:15 APTT 27.0 Seconds (25.6-37.1) 01/21/17 04:15
[2017-01-24] MEDS: Clindamycin 600 MG in Sodium Chloride 0.9% 100 ML IVPB SCH ×3 (00:39→16:51)
[2017-01-24 05:11] LABS: ABG ALLEN TEST YES; ABG MECHANICAL RATE 18; ARTERIAL BLOOD GAS HCO3 23.3 mmol/L (21-28); ARTERIAL BLOOD GAS O2 CAPACITY 15.3 mL/dL (16-24); ARTERIAL BLOOD GAS O2 CONTENT 15.2 ML/dL (15-23); ARTERIAL BLOOD GAS PH 7.34 (7.35-7.45); ARTERIAL BLOOD GAS PO2 98 mm/Hg (80-100); ARTERIAL BLOOD HGB O2 SAT 95.8 % (95.0-98.0); ATERIAL BLOOD GAS PEEP 5; CARBOXYHEMOGLOBIN 1.8 % (0.5-1.5); HHB 0.8 % (0.0-5.0); METHEMOGLOBIN 1.6 % (0.0-3.0)
[2017-01-24] MEDS: Albuterol-Ipratrop 3 mg / 0.5 (3 ml) UD INH SCH ×6 (05:15→23:03)
[2017-01-24] MEDS: Insulin Regular 100 units/ml SC SCH ×4 (06:25→22:43)
[2017-01-24] MEDS: Acetylcysteine 10% 4 ML IH SCH (07:19)
[2017-01-24 07:26] LABS: HEMATOCRIT 33.5 % (34.0-47.0); MEAN CELL VOLUME 88.3 fl (81.0-99.0); MEAN CORPUSCULAR HEMOGLOBIN 29.6 pg (27.0-31.0); MEAN CORPUSCULAR HGB CONC 33.5 g/dL (33.0-37.0); RED CELL DISTRIBUTION WIDTH 22.5 % (11.5-14.5); WHITE BLOOD COUNT 7.1 K/uL (4.8-10.8)
[2017-01-24 07:38] LABS: BLOOD UREA NITROGEN 29 mg/dl (7-17); CALCIUM 8.5 mg/dL (8.4-10.2); CARBON DIOXIDE 21 mmol/L (22-30); CHLORIDE 104 mmol/L (98-107); GFR AFRICAN-AMERICAN > 60; GLUCOSE,RANDOM 195 mg/dL (65-105); POTASSIUM 4.6 MMOL/L (3.6-5.0); SODIUM 135 mmol/l (132-148)
[2017-01-24] MEDS: methylPREDNISolone 20 MG in Sodium Chloride 0.9% 100 ML IVPB SCH ×2 (08:21→20:27)
--- NOTE | 2017-01-24 08:36 | CP.CCUPN ---
CCU Subjective - Physician Review Events Since Last Encounter (Free Text): 01/24/17 08:34 On vent, on AC, , CPAP was tried yesterday, as per nurse, but pt did not tolerate. Pt is awake now, BP has been stable, in sinus arrythmia now . CCU Objective - Vital Signs / Intake & Output Vital Signs (Last 4 hours): Vital Signs Temp Pulse Resp BP Pulse Ox 01/24/17 08:00 98.5 F 95 H 21 160/99 H 100 01/24/17 06:00 117 H 22 144/93 H 100 Intake and Output (Last 8hrs): Intake & Output 01/23/17 01/24/17 01/24/17 22:59 06:59 14:59 Intake Total 920 620 180 Output Total 600 Balance 320 620 180 Intake: Intake, Piggyback 400 100 Tube Feeding 320 320 80 Free Water Flush 200 200 100 Output: Urine 600 Urethral (Atkins) 600 - Physical Exam Narrative Physical Exam (Free Text): 01/24/17 08:35 P/ Neck: No JVd Lungs: Rt basal crackles Andomen: soft, non-tender Ext: +1 edema Heart: s1s2 irregular Head: Positive for: Normocephalic Pupils: Positive for: PERRL Extroacular Muscles: Positive for: EOMI Conjunctiva: Positive for: Normal. Negative for: Icteric Mouth: Positive for: Moist Mucous Membranes Neck: Positive for: JVD. Negative for: Meningeal Signs Respiratory/Chest: Positive for: Decreased Breath Sounds, Rales. Negative for: Accessory Muscle Use, Wheezes Cardiovascular: Positive for: Irregular Rhythm. Negative for: Murmurs, Rub Abdomen: Positive for: Normal Bowel Sounds, Other (PEG intact). Negative for: Tenderness, Distention Lower Extremity: Positive for: NORMAL PULSES. Negative for: CALF TENDERNESS, Cyanosis Neurological: Positive for: Other (on ventilator) Skin: Positive for: Warm. Negative for: Rashes Psychiatric: Positive for: Alert - Medications Active Medications: Active Medications Generic Name Dose Route Start Last Admin Trade Name Freq PRN Reason Stop Dose Admin Acetaminophen 650 mg 01/10/17 08:40 01/10/17 09:00 Tylenol 650mg/20.3ml Solution Ud PO 650 mg Q6 PRN Administration fever Acetylcysteine 2 ml 01/20/17 20:00 01/24/17 07:19 Mucomyst 10% 4ml IH 2 ml RBID [facility] Administration Albuterol/Ipratropium 3 ml 01/21/17 12:00 01/24/17 07:19 Duoneb 3 Mg/0.5 Mg (3 Ml) Ud INH 3 ml RQ4 [facility] Administration Digoxin 0.125 mg 01/22/17 18:00 01/23/17 17:11 Lanoxin PO 0.125 mg DAILY@1800 [facility] Administration Famotidine 20 mg 01/16/17 21:00 01/24/17 08:21 Pepcid PO 20 mg Q12 [facility] Administration Clindamycin Phosphate 600 mg/ 104 mls @ 104 mls/hr 01/20/17 17:00 01/24/17 08 :21 Sodium Chloride IVPB 104 mls/hr Q8 [facility] Administration Protocol Piperacillin Sod/Tazobactam 100 mls @ 100 mls/hr 01/20/17 16:00 01/24/17 03: 38 Sod 2.25 gm/ Sodium Chloride IVPB 100 mls/hr Q6 [facility] Administration Protocol Methylprednisolone 20 mg/ 100 mls @ 200 mls/hr 01/22/17 21:00 01/24/17 08:21 Sodium Chloride IVPB 200 mls/hr Q12 [facility] Administration Insulin Human Regular 0 units 01/16/17 11:48 01/24/17 06:25 Humulin R SC 2 unit ACCU-CHECK [facility] Administration Protocol Metoprolol Tartrate 12.5 mg 01/21/17 10:15 01/24/17 08:21 Lopressor PO 12.5 mg Q12 [facility] Administration Rivaroxaban 15 mg 01/16/17 17:00 01/23/17 17:11 Xarelto PO 15 mg DAILY@1700 [facility] Administration Protocol - Patient Studies Lab Studies: Lab Studies 01/24/17 01/24/17 01/24/17 Range/Units 06:22 06:00 06:00 WBC 7.1 (4.8-10.8) K/uL RBC 3.80 (3.80-5.20) Mil/uL Hgb 11.2 L (12.0-16.0) g/dL Hct 33.5 L (34.0-47.0) % MCV 88.3 (81.0-99.0) fl MCH 29.6 (27.0-31.0) pg MCHC 33.5 (33.0-37.0) g/dL RDW 22.5 H (11.5-14.5) % Plt Count 279 (130-400) K/uL pCO2 (35-45) mm/Hg pO2 (80-100) mm/Hg HCO3 (21-28) mmol/L ABG pH (7.35-7.45) ABG Total CO2 (22-28) mmol/L ABG O2 Saturation (95-98) % ABG O2 Content (15-23) ML/dL ABG Base Excess (-2.0-3.0) mmol/L ABG Hemoglobin (11.7-17.4) g/dL ABG Carboxyhemoglobin (0.5-1.5) % POC ABG HHb (Measured) (0.0-5.0) % ABG Methemoglobin (0.0-3.0) % ABG O2 Capacity (16-24) mL/dL Rakan Test A-a O2 Difference mm/Hg Hgb O2 Saturation (95.0-98.0) % Mechanical Rate FiO2 % Tidal Volume PEEP Sodium 135 (132-148) mmol/l Potassium 4.6 (3.6-5.0) MMOL/L Chloride 104 (98-107) mmol/L Carbon Dioxide 21 L (22-30) mmol/L Anion Gap 15 (10-20) BUN 29 H (7-17) mg/dl Creatinine 1.0 (0.7-1.2) mg/dL Est GFR ( Amer) > 60 Est GFR (Non-Af Amer) 54 POC Glucose (mg/dL) 197 H (65-110) mg/dL Random Glucose 195 H (65-105) mg/dL Calcium 8.5 (8.4-10.2) mg/dL 01/24/17 01/23/17 01/23/17 Range/Units 04:48 22:14 17:02 WBC (4.8-10.8) K/uL RBC (3.80-5.20) Mil/uL Hgb (12.0-16.0) g/dL Hct (34.0-47.0) % MCV (81.0-99.0) fl MCH (27.0-31.0) pg MCHC (33.0-37.0) g/dL RDW (11.5-14.5) % Plt Count (130-400) K/uL pCO2 44 (35-45) mm/Hg pO2 98 (80-100) mm/Hg HCO3 23.3 (21-28) mmol/L ABG pH 7.34 L (7.35-7.45) ABG Total CO2 25.1 (22-28) mmol/L ABG O2 Saturation 99.2 H (95-98) % ABG O2 Content 15.2 (15-23) ML/dL ABG Base Excess -2.1 L (-2.0-3.0) mmol/L ABG Hemoglobin 11.2 L (11.7-17.4) g/dL ABG Carboxyhemoglobin 1.8 H (0.5-1.5) % POC ABG HHb (Measured) 0.8 (0.0-5.0) % ABG Methemoglobin 1.6 (0.0-3.0) % ABG O2 Capacity 15.3 L (16-24) mL/dL Rakan Test Yes A-a O2 Difference 61.0 mm/Hg Hgb O2 Saturation 95.8 (95.0-98.0) % Mechanical Rate 18 FiO2 30.0 % Tidal Volume 380 PEEP 5 Sodium (132-148) mmol/l Potassium (3.6-5.0) MMOL/L Chloride (98-107) mmol/L Carbon Dioxide (22-30) mmol/L Anion Gap (10-20) BUN (7-17) mg/dl Creatinine (0.7-1.2) mg/dL Est GFR ( Amer) Est GFR (Non-Af Amer) POC Glucose (mg/dL) 174 H 137 H (65-110) mg/dL Random Glucose (65-105) mg/dL Calcium (8.4-10.2) mg/dL 01/23/17 Range/Units 13:25 WBC (4.8-10.8) K/uL RBC (3.80-5.20) Mil/uL Hgb (12.0-16.0) g/dL Hct (34.0-47.0) % MCV (81.0-99.0) fl MCH (27.0-31.0) pg MCHC (33.0-37.0) g/dL RDW (11.5-14.5) % Plt Count (130-400) K/uL pCO2 (35-45) mm/Hg pO2 (80-100) mm/Hg HCO3 (21-28) mmol/L ABG pH (7.35-7.45) ABG Total CO2 (22-28) mmol/L ABG O2 Saturation (95-98) % ABG O2 Content (15-23) ML/dL ABG Base Excess (-2.0-3.0) mmol/L ABG Hemoglobin (11.7-17.4) g/dL ABG Carboxyhemoglobin (0.5-1.5) % POC ABG HHb (Measured) (0.0-5.0) % ABG Methemoglobin (0.0-3.0) % ABG O2 Capacity (16-24) mL/dL Rakan Test A-a O2 Difference mm/Hg Hgb O2 Saturation (95.0-98.0) % Mechanical Rate FiO2 % Tidal Volume PEEP Sodium (132-148) mmol/l Potassium (3.6-5.0) MMOL/L Chloride (98-107) mmol/L Carbon Dioxide (22-30) mmol/L Anion Gap (10-20) BUN (7-17) mg/dl Creatinine (0.7-1.2) mg/dL Est GFR ( Amer) Est GFR (Non-Af Amer) POC Glucose (mg/dL) 133 H (65-110) mg/dL Random Glucose (65-105) mg/dL Calcium (8.4-10.2) mg/dL Laboratory Results - last 24 hr 01/23/17 01/23/17 01/23/17 13:25 17:02 22:14 WBC RBC Hgb Hct MCV MCH MCHC RDW Plt Count pCO2 pO2 HCO3 ABG pH ABG Total CO2 ABG O2 Saturation ABG O2 Content ABG Base Excess ABG Hemoglobin ABG Carboxyhemoglobin POC ABG HHb (Measured) ABG Methemoglobin ABG O2 Capacity Rakan Test A-a O2 Difference Hgb O2 Saturation Mechanical Rate FiO2 Tidal Volume PEEP Sodium Potassium Chloride Carbon Dioxide Anion Gap BUN Creatinine Est GFR ( Amer) Est GFR (Non-Af Amer) POC Glucose (mg/dL) 133 H 137 H 174 H Random Glucose Calcium 01/24/17 01/24/17 01/24/17 04:48 06:00 06:00 WBC 7.1 RBC 3.80 Hgb 11.2 L Hct 33.5 L MCV 88.3 MCH 29.6 MCHC 33.5 RDW 22.5 H Plt Count 279 pCO2 44 pO2 98 HCO3 23.3 ABG pH 7.34 L ABG Total CO2 25.1 ABG O2 Saturation 99.2 H ABG O2 Content 15.2 ABG Base Excess -2.1 L ABG Hemoglobin 11.2 L ABG Carboxyhemoglobin 1.8 H POC ABG HHb (Measured) 0.8 ABG Methemoglobin 1.6 ABG O2 Capacity 15.3 L Rakan Test Yes A-a O2 Difference 61.0 Hgb O2 Saturation 95.8 Mechanical Rate 18 FiO2 30.0 Tidal Volume 380 PEEP 5 Sodium 135 Potassium 4.6 Chloride 104 Carbon Dioxide 21 L Anion Gap 15 BUN 29 H Creatinine 1.0 Est GFR ( Amer) > 60 Est GFR (Non-Af Amer) 54 POC Glucose (mg/dL) Random Glucose 195 H Calcium 8.5 01/24/17 06:22 WBC RBC Hgb Hct MCV MCH MCHC RDW Plt Count pCO2 pO2 HCO3 ABG pH ABG Total CO2 ABG O2 Saturation ABG O2 Content ABG Base Excess ABG Hemoglobin ABG Carboxyhemoglobin POC ABG HHb (Measured) ABG Methemoglobin ABG O2 Capacity Rakan Test A-a O2 Difference Hgb O2 Saturation Mechanical Rate FiO2 Tidal Volume PEEP Sodium Potassium Chloride Carbon Dioxide Anion Gap BUN Creatinine Est GFR ( Amer) Est GFR (Non-Af Amer) POC Glucose (mg/dL) 197 H Random Glucose Calcium Fingerstick Blood Sugar Results: 197 Critical Care Progress Note - Vent Settings MODE:: PCV - Extremities/Vascular Does the Patient have a Central Venous Catheter?: Yes Insertion Site: Femoral Vein Does the Patient need a Central Venous Catheter?: Yes (does not need it, will remove it today) Assessment/Plan - Assessment and Plan (Free Text) Assessment: 71 y/o woman w/ pmh of PEG (placed 2 days prior to admission), bed bound, dementia, CHF EF 30%, AFib, HTN, and HLD in ICU for respiratory failure. Plan: Acute respiratory failure with hypercapnia - re-intubated 01/16/2017 - PRVC A/C rate 18, vol 380, PEEP 5, FIO2 30% - ABG: today 01/24: pCO2 44, pO2 98, HCO3 22.5, pH 7.34 - CXR 01/24/2017: tenting not prominent, focal infiltrates remain unchanged - continue weening off , will try CPAP again today - COPD exacerbation - patient has history of emphysema - patient retaining CO2 - c/w methyprednisolone to 20 mg IV to Q12h - c/w mucomyst 2 mL BID - c/w duonebs to Q4h - c/w chest PT Q4h s/p duoneb therapy Diet - reports appetite - PEG placed due to poor nutrition - receiving tube feeds 40mL/hr - c/w glucerna 1.2 - on sliding scale insulin Type 2 diabetes - newly diagnosed, HbA1c 6.9% - on insulin sliding scale HCAP (healthcare-associated pneumonia) - sputum culture 01/10/2017 grew Staph aureus susceptible to all antibiotics except penicillin - sputum culture 01/16/2017 shows normal oral errol - c/w IV Piperacillin Sod/Tazobactam 2.25 g Q6h day 13 - started clindamycin 600 mg IV Q8h day 3 - c/w tylenol for fever prn - ID consult, Dr. Mosqueda, recommendations appreciated - PICC line today for better intravascular access Cardiac arrest - ACLS initiated in longterm, ROSC achieved prior to EMS arrival, intubated for agonal breathing - improved mental status, Patient awake, oriented, follow commands. - K+ normalized Anemia - anemic since admission, Hb 6.9 01/12/2017 - yesterday Hb 7.1 - s/p 2 PRBC 01/22/2017 - No evidence of active bleeding - repeat Hb today 01/24: 11.2 Atrial fibrillation: Sinus arrythmia at the moement - chronic, home meds restarted - xarelto 15 mg PO daily - digoxin 0.125 mg PO daily - lopressor 12.5 mg PO Q12h restarted for tachycarida - cardiac monitoring Prophylactic Measures - pepcid 20 mg IVP Q12 - SCDs - PT/OT eval/treat recommendations appreciated, on hold currently due to re- intubation
--- NOTE | 2017-01-24 11:22 | RAD ---
HISTORY: ETT placement COMPARISON: Yesterday FINDINGS: LUNGS: There is mild increase in alveolar densities and infiltrates bilaterally, this may reflect some mild increase in edema. Endotracheal tube is noted with its tip in the mid the distal trachea but above the collin. PLEURA: Probable stable effusions. No pneumothorax. CARDIOVASCULAR: Possible mild increase in vascular congestion. OSSEOUS STRUCTURES: No significant abnormalities. VISUALIZED UPPER ABDOMEN: Normal. OTHER FINDINGS: None. IMPRESSION: Endotracheal tube noted in the mid the distal trachea. Bilateral effusions and atelectasis at the lung bases with possible mild increase in alveolar edema.
--- NOTE | 2017-01-24 15:17 | CP.PCM.PN ---
Subjective - Date & Time of Evaluation Date of Evaluation: 01/24/17 Time of Evaluation: 15:16 - Subjective Subjective: Patient is fairly stable. Objective - Vital Signs/Intake and Output Vital Signs (last 24 hours): Temp Pulse Resp BP Pulse Ox 97.8 F 83 19 176/80 H 100 01/24/17 12:00 01/24/17 12:00 01/24/17 12:00 01/24/17 12:00 01/24/17 12:00 Intake and Output: 01/24/17 01/24/17 06:59 18:59 Intake Total 1080 440 Balance 1080 440 - Medications Medications: Current Medications Acetaminophen (Tylenol 650mg/20.3ml Solution Ud) 650 mg PO Q6 PRN PRN Reason: fever Last Admin: 01/10/17 09:00 Dose: 650 mg Acetylcysteine (Mucomyst 10% 4ml) 2 ml IH RBID [facility] Last Admin: 01/24/17 07:19 Dose: 2 ml Albuterol/Ipratropium (Duoneb 3 Mg/0.5 Mg (3 Ml) Ud) 3 ml INH RQ4 [facility] Last Admin: 01/24/17 15:11 Dose: 3 ml Amlodipine Besylate (Norvasc) 5 mg PO DAILY [facility] Last Admin: 01/24/17 14:13 Dose: 5 mg Digoxin (Lanoxin) 0.125 mg PO DAILY@1800 [facility] Last Admin: 01/23/17 17:11 Dose: 0.125 mg Famotidine (Pepcid) 20 mg PO Q12 [facility] Last Admin: 01/24/17 08:21 Dose: 20 mg Clindamycin Phosphate 600 mg/ (Sodium Chloride) 104 mls @ 104 mls/hr IVPB Q8 [facility] PRN Reason: Protocol Last Admin: 01/24/17 08:21 Dose: 104 mls/hr Piperacillin Sod/Tazobactam (Sod 2.25 gm/ Sodium Chloride) 100 mls @ 100 mls/ hr IVPB Q6 [facility] PRN Reason: Protocol Last Admin: 01/24/17 09:39 Dose: 100 mls/hr Methylprednisolone 20 mg/ (Sodium Chloride) 100 mls @ 200 mls/hr IVPB Q12 [facility] Last Admin: 01/24/17 08:21 Dose: 200 mls/hr Insulin Human Regular (Humulin R) 0 units SC ACCU-CHECK [facility] PRN Reason: Protocol Last Admin: 01/24/17 11:50 Dose: Not Given Metoprolol Tartrate (Lopressor) 12.5 mg PO Q12 [facility] Last Admin: 01/24/17 08:21 Dose: 12.5 mg Rivaroxaban (Xarelto) 15 mg PO DAILY@1700 [facility] PRN Reason: Protocol Last Admin: 01/23/17 17:11 Dose: 15 mg - Labs Labs: 01/24/17 06:00 01/24/17 06:00 PT 10.7 Seconds (9.8-13.1) 01/21/17 04:15 INR 1.0 (0.9-1.2) 01/21/17 04:15 APTT 27.0 Seconds (25.6-37.1) 01/21/17 04:15
[2017-01-24] MEDS: Digoxin 125 mcg (0.125 mg) Tab PO SCH (17:05)
[2017-01-25] MEDS: Clindamycin 600 MG in Sodium Chloride 0.9% 100 ML IVPB SCH ×3 (00:16→17:11)
[2017-01-25] MEDS: Albuterol-Ipratrop 3 mg / 0.5 (3 ml) UD INH SCH ×5 (04:59→19:22)
[2017-01-25 05:35] LABS: ABG ALLEN TEST YES; ABG MECHANICAL RATE 18; ARTERIAL BLOOD GAS HCO3 25.4 mmol/L (21-28); ARTERIAL BLOOD GAS MODE PRVC/AC; ARTERIAL BLOOD GAS O2 CAPACITY 15.2 mL/dL (16-24); ARTERIAL BLOOD GAS PH 7.47 (7.35-7.45); ARTERIAL BLOOD GAS PO2 84 mm/Hg (80-100); ARTERIAL BLOOD HGB O2 SAT 95.2 % (95.0-98.0); ATERIAL BLOOD GAS PEEP 5; CARBOXYHEMOGLOBIN 1.5 % (0.5-1.5); HHB 1.4 % (0.0-5.0); METHEMOGLOBIN 1.8 % (0.0-3.0)
[2017-01-25] MEDS: Insulin Regular 100 units/ml SC SCH ×4 (06:11→22:02)
[2017-01-25 06:20] LABS: HEMATOCRIT 32.3 % (34.0-47.0); MEAN CELL VOLUME 88.3 fl (81.0-99.0); MEAN CORPUSCULAR HGB CONC 32.8 g/dL (33.0-37.0); RED CELL DISTRIBUTION WIDTH 22.2 % (11.5-14.5); WHITE BLOOD COUNT 6.7 K/uL (4.8-10.8)
[2017-01-25 06:27] LABS: ALB/GLOB RATIO 0.7 (1.0-2.1); ALKALINE PHOSPHATASE 66 U/L (38-126); ALT/SGPT 30 U/L (9-52); AST/SGOT 25 U/L (14-36); BILIRUBIN,TOTAL 0.3 mg/dl (0.2-1.3); BLOOD UREA NITROGEN 28 mg/dl (7-17); CALCIUM 8.3 mg/dL (8.4-10.2); CARBON DIOXIDE 23 mmol/L (22-30); CHLORIDE 103 mmol/L (98-107); GFR AFRICAN-AMERICAN > 60; GLUCOSE,RANDOM 103 mg/dL (65-105); POTASSIUM 4.4 MMOL/L (3.6-5.0); SODIUM 135 mmol/l (132-148); TOTAL PROTEIN 5.8 G/DL (6.3-8.2)
[2017-01-25] MEDS: Acetylcysteine 10% 4 ML IH SCH ×2 (07:18→19:22)
[2017-01-25] MEDS: methylPREDNISolone 20 MG in Sodium Chloride 0.9% 100 ML IVPB SCH (08:16)
--- NOTE | 2017-01-25 09:46 | CP.CCUPN ---
CCU Subjective - Physician Review Events Since Last Encounter (Free Text): 01/25/17 09:43 Pt is awake, looks very comfortable on AC vent setting with stable vitals and ABG but when I tried to wean her and changed to CPAP, she did not tlerate even for few minutes, had very small tidal volume and became hypoxic. Do not think she is weanabel and will need tracheostomy. WIll hold her xarelto , in preperation for tracheostomy on thursday or . CCU Objective - Vital Signs / Intake & Output Vital Signs (Last 4 hours): Vital Signs Temp Pulse Resp BP Pulse Ox 01/25/17 08:18 140/94 H 01/25/17 08:00 98.5 F 89 19 140/94 H 100 01/25/17 06:00 98.5 F 74 18 149/68 100 Intake and Output (Last 8hrs): Intake & Output 01/24/17 01/25/17 01/25/17 22:59 06:59 14:59 Intake Total 885 728 180 Output Total 400 1100 Balance 485 -372 180 Weight 116 lb Intake: IV 5 8 Intake, Piggyback 400 200 Tube Feeding 280 320 80 Free Water Flush 200 200 100 Output: Urine 400 1100 Urethral (Atkins) 400 1100 Other: # Bowel Movements 3 1 - Physical Exam Narrative Physical Exam (Free Text): 01/25/17 09:46 P/E Neck: No Jvd Lungs: Rt basal crackles Abdomen: soft; non tender Ext: +1 edema Heart: S1 S2 regular with occasional extra beat. Head: Positive for: Normocephalic Pupils: Positive for: PERRL Extroacular Muscles: Positive for: EOMI Conjunctiva: Positive for: Normal. Negative for: Icteric Mouth: Positive for: Moist Mucous Membranes Neck: Positive for: JVD. Negative for: Meningeal Signs Respiratory/Chest: Positive for: Decreased Breath Sounds, Rales. Negative for: Accessory Muscle Use, Wheezes Cardiovascular: Positive for: Irregular Rhythm. Negative for: Murmurs, Rub Abdomen: Positive for: Normal Bowel Sounds, Other (PEG intact). Negative for: Tenderness, Distention Lower Extremity: Positive for: NORMAL PULSES. Negative for: CALF TENDERNESS, Cyanosis Neurological: Positive for: Other (on ventilator) Skin: Positive for: Warm. Negative for: Rashes Psychiatric: Positive for: Alert - Medications Active Medications: Active Medications Generic Name Dose Route Start Last Admin Trade Name Meaghan PRN Reason Stop Dose Admin Acetylcysteine 2 ml 01/20/17 20:00 01/25/17 07:18 Mucomyst 10% 4ml IH 2 ml RBID [facility] Administration Albuterol/Ipratropium 3 ml 01/21/17 12:00 01/25/17 07:18 Duoneb 3 Mg/0.5 Mg (3 Ml) Ud INH 3 ml RQ4 [facility] Administration Amlodipine Besylate 5 mg 01/24/17 12:15 01/25/17 08:19 Norvasc PO 5 mg DAILY [facility] Administration Digoxin 0.125 mg 01/22/17 18:00 01/24/17 17:05 Lanoxin PO 0.125 mg DAILY@1800 [facility] Administration Famotidine 20 mg 01/16/17 21:00 01/25/17 08:19 Pepcid PO 20 mg Q12 [facility] Administration Furosemide 40 mg 01/24/17 16:30 01/25/17 08:18 Lasix IVP 40 mg DAILY [facility] Administration Clindamycin Phosphate 600 mg/ 104 mls @ 104 mls/hr 01/20/17 17:00 01/25/17 08 :15 Sodium Chloride IVPB 104 mls/hr Q8 [facility] Administration Protocol Piperacillin Sod/Tazobactam 100 mls @ 100 mls/hr 01/20/17 16:00 01/25/17 09: 36 Sod 2.25 gm/ Sodium Chloride IVPB 100 mls/hr Q6 [facility] Administration Protocol Methylprednisolone 20 mg/ 100 mls @ 200 mls/hr 01/22/17 21:00 01/25/17 08:16 Sodium Chloride IVPB 200 mls/hr Q12 [facility] Administration Insulin Human Regular 0 units 01/16/17 11:48 01/25/17 06:11 Humulin R SC Not Given ACCU-CHECK [facility] Protocol Labetalol HCl 100 mg 01/24/17 17:00 01/25/17 08:19 Trandate PO 100 mg Q8 [facility] Administration Metoprolol Tartrate 12.5 mg 01/21/17 10:15 01/25/17 08:20 Lopressor PO 12.5 mg Q12 [facility] Administration Rivaroxaban 15 mg 01/16/17 17:00 01/24/17 17:04 Xarelto PO 15 mg DAILY@1700 [facility] Administration Protocol - Patient Studies Lab Studies: Lab Studies 01/25/17 01/25/17 01/25/17 Range/Units 05:30 05:30 05:23 WBC 6.7 (4.8-10.8) K/uL RBC 3.66 L (3.80-5.20) Mil/uL Hgb 10.6 L (12.0-16.0) g/dL Hct 32.3 L (34.0-47.0) % MCV 88.3 (81.0-99.0) fl MCH 29.0 (27.0-31.0) pg MCHC 32.8 L (33.0-37.0) g/dL RDW 22.2 H (11.5-14.5) % Plt Count 263 (130-400) K/uL pCO2 33 L (35-45) mm/Hg pO2 84 (80-100) mm/Hg HCO3 25.4 (21-28) mmol/L ABG pH 7.47 H (7.35-7.45) ABG Total CO2 25.0 (22-28) mmol/L ABG O2 Saturation 98.6 H (95-98) % ABG O2 Content 15.0 (15-23) ML/dL ABG Base Excess 0.7 (-2.0-3.0) mmol/L ABG Hemoglobin 11.1 L (11.7-17.4) g/dL ABG Carboxyhemoglobin 1.5 (0.5-1.5) % POC ABG HHb (Measured) 1.4 (0.0-5.0) % ABG Methemoglobin 1.8 (0.0-3.0) % ABG O2 Capacity 15.2 L (16-24) mL/dL Rakan Test Yes A-a O2 Difference 89.0 mm/Hg Hgb O2 Saturation 95.2 (95.0-98.0) % Vent Mode Prvc/ac Mechanical Rate 18 FiO2 30.0 % Tidal Volume 380 PEEP 5 Sodium 135 (132-148) mmol/l Potassium 4.4 (3.6-5.0) MMOL/L Chloride 103 (98-107) mmol/L Carbon Dioxide 23 (22-30) mmol/L Anion Gap 14 (10-20) BUN 28 H (7-17) mg/dl Creatinine 1.0 (0.7-1.2) mg/dL Est GFR ( Amer) > 60 Est GFR (Non-Af Amer) 54 POC Glucose (mg/dL) (65-110) mg/dL Random Glucose 103 (65-105) mg/dL Calcium 8.3 L (8.4-10.2) mg/dL Total Bilirubin 0.3 (0.2-1.3) mg/dl AST 25 (14-36) U/L ALT 30 (9-52) U/L Alkaline Phosphatase 66 (38-126) U/L Total Protein 5.8 L (6.3-8.2) G/DL Albumin 2.4 L (3.5-5.0) g/dL Globulin 3.4 (2.2-3.9) gm/dL Albumin/Globulin Ratio 0.7 L (1.0-2.1) Reverse T3 (8-25) ng/dL 01/25/17 01/24/17 01/24/17 Range/Units 04:57 20:25 14:08 WBC (4.8-10.8) K/uL RBC (3.80-5.20) Mil/uL Hgb (12.0-16.0) g/dL Hct (34.0-47.0) % MCV (81.0-99.0) fl MCH (27.0-31.0) pg MCHC (33.0-37.0) g/dL RDW (11.5-14.5) % Plt Count (130-400) K/uL pCO2 (35-45) mm/Hg pO2 (80-100) mm/Hg HCO3 (21-28) mmol/L ABG pH (7.35-7.45) ABG Total CO2 (22-28) mmol/L ABG O2 Saturation (95-98) % ABG O2 Content (15-23) ML/dL ABG Base Excess (-2.0-3.0) mmol/L ABG Hemoglobin (11.7-17.4) g/dL ABG Carboxyhemoglobin (0.5-1.5) % POC ABG HHb (Measured) (0.0-5.0) % ABG Methemoglobin (0.0-3.0) % ABG O2 Capacity (16-24) mL/dL Rakan Test A-a O2 Difference mm/Hg Hgb O2 Saturation (95.0-98.0) % Vent Mode Mechanical Rate FiO2 % Tidal Volume PEEP Sodium (132-148) mmol/l Potassium (3.6-5.0) MMOL/L Chloride (98-107) mmol/L Carbon Dioxide (22-30) mmol/L Anion Gap (10-20) BUN (7-17) mg/dl Creatinine (0.7-1.2) mg/dL Est GFR ( Amer) Est GFR (Non-Af Amer) POC Glucose (mg/dL) 120 H 143 H 163 H (65-110) mg/dL Random Glucose (65-105) mg/dL Calcium (8.4-10.2) mg/dL Total Bilirubin (0.2-1.3) mg/dl AST (14-36) U/L ALT (9-52) U/L Alkaline Phosphatase (38-126) U/L Total Protein (6.3-8.2) G/DL Albumin (3.5-5.0) g/dL Globulin (2.2-3.9) gm/dL Albumin/Globulin Ratio (1.0-2.1) Reverse T3 (8-25) ng/dL 01/24/17 01/22/17 Range/Units 11:30 04:20 WBC (4.8-10.8) K/uL RBC (3.80-5.20) Mil/uL Hgb (12.0-16.0) g/dL Hct (34.0-47.0) % MCV (81.0-99.0) fl MCH (27.0-31.0) pg MCHC (33.0-37.0) g/dL RDW (11.5-14.5) % Plt Count (130-400) K/uL pCO2 (35-45) mm/Hg pO2 (80-100) mm/Hg HCO3 (21-28) mmol/L ABG pH (7.35-7.45) ABG Total CO2 (22-28) mmol/L ABG O2 Saturation (95-98) % ABG O2 Content (15-23) ML/dL ABG Base Excess (-2.0-3.0) mmol/L ABG Hemoglobin (11.7-17.4) g/dL ABG Carboxyhemoglobin (0.5-1.5) % POC ABG HHb (Measured) (0.0-5.0) % ABG Methemoglobin (0.0-3.0) % ABG O2 Capacity (16-24) mL/dL Rakan Test A-a O2 Difference mm/Hg Hgb O2 Saturation (95.0-98.0) % Vent Mode Mechanical Rate FiO2 % Tidal Volume PEEP Sodium (132-148) mmol/l Potassium (3.6-5.0) MMOL/L Chloride (98-107) mmol/L Carbon Dioxide (22-30) mmol/L Anion Gap (10-20) BUN (7-17) mg/dl Creatinine (0.7-1.2) mg/dL Est GFR ( Amer) Est GFR (Non-Af Amer) POC Glucose (mg/dL) 120 H (65-110) mg/dL Random Glucose (65-105) mg/dL Calcium (8.4-10.2) mg/dL Total Bilirubin (0.2-1.3) mg/dl AST (14-36) U/L ALT (9-52) U/L Alkaline Phosphatase (38-126) U/L Total Protein (6.3-8.2) G/DL Albumin (3.5-5.0) g/dL Globulin (2.2-3.9) gm/dL Albumin/Globulin Ratio (1.0-2.1) Reverse T3 38 H (8-25) ng/dL Laboratory Results - last 24 hr 01/22/17 01/24/17 01/24/17 04:20 11:30 14:08 WBC RBC Hgb Hct MCV MCH MCHC RDW Plt Count pCO2 pO2 HCO3 ABG pH ABG Total CO2 ABG O2 Saturation ABG O2 Content ABG Base Excess ABG Hemoglobin ABG Carboxyhemoglobin POC ABG HHb (Measured) ABG Methemoglobin ABG O2 Capacity Rakan Test A-a O2 Difference Hgb O2 Saturation Vent Mode Mechanical Rate FiO2 Tidal Volume PEEP Sodium Potassium Chloride Carbon Dioxide Anion Gap BUN Creatinine Est GFR ( Amer) Est GFR (Non-Af Amer) POC Glucose (mg/dL) 120 H 163 H Random Glucose Calcium Total Bilirubin AST ALT Alkaline Phosphatase Total Protein Albumin Globulin Albumin/Globulin Ratio Reverse T3 38 H 01/24/17 01/25/17 01/25/17 20:25 04:57 05:23 WBC RBC Hgb Hct MCV MCH MCHC RDW Plt Count pCO2 33 L pO2 84 HCO3 25.4 ABG pH 7.47 H ABG Total CO2 25.0 ABG O2 Saturation 98.6 H ABG O2 Content 15.0 ABG Base Excess 0.7 ABG Hemoglobin 11.1 L ABG Carboxyhemoglobin 1.5 POC ABG HHb (Measured) 1.4 ABG Methemoglobin 1.8 ABG O2 Capacity 15.2 L Rakan Test Yes A-a O2 Difference 89.0 Hgb O2 Saturation 95.2 Vent Mode Prvc/ac Mechanical Rate 18 FiO2 30.0 Tidal Volume 380 PEEP 5 Sodium Potassium Chloride Carbon Dioxide Anion Gap BUN Creatinine Est GFR ( Amer) Est GFR (Non-Af Amer) POC Glucose (mg/dL) 143 H 120 H Random Glucose Calcium Total Bilirubin AST ALT Alkaline Phosphatase Total Protein Albumin Globulin Albumin/Globulin Ratio Reverse T3 01/25/17 01/25/17 05:30 05:30 WBC 6.7 RBC 3.66 L Hgb 10.6 L Hct 32.3 L MCV 88.3 MCH 29.0 MCHC 32.8 L RDW 22.2 H Plt Count 263 pCO2 pO2 HCO3 ABG pH ABG Total CO2 ABG O2 Saturation ABG O2 Content ABG Base Excess ABG Hemoglobin ABG Carboxyhemoglobin POC ABG HHb (Measured) ABG Methemoglobin ABG O2 Capacity Rakan Test A-a O2 Difference Hgb O2 Saturation Vent Mode Mechanical Rate FiO2 Tidal Volume PEEP Sodium 135 Potassium 4.4 Chloride 103 Carbon Dioxide 23 Anion Gap 14 BUN 28 H Creatinine 1.0 Est GFR ( Amer) > 60 Est GFR (Non-Af Amer) 54 POC Glucose (mg/dL) Random Glucose 103 Calcium 8.3 L Total Bilirubin 0.3 AST 25 ALT 30 Alkaline Phosphatase 66 Total Protein 5.8 L Albumin 2.4 L Globulin 3.4 Albumin/Globulin Ratio 0.7 L Reverse T3 EKG/Cardiology Studies: Cardiology / EKG Studies 01/25/17 EKG [ELECTROCARDIOGRAM] Routine Comment: Mode Of Transportation: PORTABLE Reason For Exam: Routine Fingerstick Blood Sugar Results: 120 Assessment/Plan - Assessment and Plan (Free Text) Assessment: 71 y/o woman w/ pmh of PEG (placed 2 days prior to admission), bed bound, dementia, CHF EF 30%, AFib, HTN, and HLD in ICU for respiratory failure. Now in SR with some PACs Plan: Acute respiratory failure with hypercapnia - re-intubated 01/16/2017 - PRVC A/C rate 18, vol 380, PEEP 5, FIO2 30% - ABG: today 01/25: pCO2 33, pO2 84, HCO3 25.4, pH 7.47 - CXR 01/25/2017: tenting not prominent, focal infiltrates remain unchanged, ETT is at appropriate position - Did not do well on weaning trial, will not try any more, will need trach - COPD exacerbation - patient has history of emphysema - patient retaining CO2 - c/w methyprednisolone to 20 mg IV to Q12h - c/w mucomyst 2 mL BID - c/w duonebs to Q4h - c/w chest PT Q4h s/p duoneb therapy Diet - reports appetite - PEG placed due to poor nutrition - receiving tube feeds 40mL/hr - c/w glucerna 1.2 - on sliding scale insulin Type 2 diabetes - newly diagnosed, HbA1c 6.9% - on insulin sliding scale HCAP (healthcare-associated pneumonia) - sputum culture 01/10/2017 grew Staph aureus susceptible to all antibiotics except penicillin - sputum culture 01/16/2017 shows normal oral errol - c/w IV Piperacillin Sod/Tazobactam 2.25 g Q6h day 13 - started clindamycin 600 mg IV Q8h day 3 - c/w tylenol for fever prn - ID consult, Dr. Mosqueda, recommendations appreciated - PICC line today for better intravascular access Cardiac arrest - ACLS initiated in assisted, ROSC achieved prior to EMS arrival, intubated for agonal breathing - improved mental status, Patient awake, oriented, follow commands. - K+ normalized Anemia - anemic since admission, Hb 6.9 01/12/2017 - yesterday Hb 7.1 - s/p 2 PRBC 01/22/2017 - No evidence of active bleeding - repeat Hb today 01/24: 11.2 Atrial fibrillation: toady 01/25: in SR with occasional PACs - chronic, home meds restarted - Has been on xarelto 15 mg PO daily, will hold today and will continue to hold in anticipation of tracheostomy after 72 hours. - digoxin 0.125 mg PO daily - lopressor 12.5 mg PO Q12h restarted for tachycarida - cardiac monitoring Prophylactic Measures - pepcid 20 mg IVP Q12 - SCDs - PT/OT eval/treat recommendations appreciated, on hold currently due to re- intubation
--- NOTE | 2017-01-25 10:01 | RAD ---
HISTORY: vented COMPARISON: Yesterday FINDINGS: LUNGS: Persistent areas of alveolar density are identified bilaterally suggesting areas of edema and/or infiltrate. Persistent atelectasis and increased density in the left retrocardiac region are noted, possibly slightly increased. There may also be some mild increase in subsegmental atelectasis at the right lung base. Endotracheal tube is unchanged lying 2 centimeters above the collin within the mid the distal trachea. PLEURA: Persisting bilateral effusions. CARDIOVASCULAR: Heart is enlarged. Aorta is unchanged. Vasculature remains mildly congested. OSSEOUS STRUCTURES: No significant abnormalities. VISUALIZED UPPER ABDOMEN: Normal. OTHER FINDINGS: None. IMPRESSION: Possible mild increase in bibasilar subsegmental atelectasis. Persistent edema and probable vascular congestion with small effusions.
[2017-01-25] MEDS: Digoxin 125 mcg (0.125 mg) Tab PO SCH (17:11)
[2017-01-25] MEDS: MethylPREDNISolone 40 mg Vial IVP SCH (20:23)
--- NOTE | 2017-01-25 23:06 | CP.PCM.PN ---
Subjective - Date & Time of Evaluation Date of Evaluation: 01/25/17 Time of Evaluation: 13:30 - Subjective Subjective: Patient remains intubated. Has no fever. Could not tolerate CPAP. Objective - Vital Signs/Intake and Output Vital Signs (last 24 hours): Temp Pulse Resp BP Pulse Ox 97.8 F 85 18 158/95 H 100 01/25/17 20:00 01/25/17 22:00 01/25/17 22:00 01/25/17 22:00 01/25/17 22:00 Intake and Output: 01/25/17 01/26/17 18:59 06:59 Intake Total 1080 232 Output Total 1760 0 Balance -680 232 - Medications Medications: Current Medications Acetylcysteine (Mucomyst 10% 4ml) 2 ml IH RBID [facility] Last Admin: 01/25/17 19:22 Dose: 2 ml Albuterol/Ipratropium (Duoneb 3 Mg/0.5 Mg (3 Ml) Ud) 3 ml INH RQ4 [facility] Last Admin: 01/25/17 19:22 Dose: 3 ml Amlodipine Besylate (Norvasc) 5 mg PO DAILY [facility] Last Admin: 01/25/17 08:19 Dose: 5 mg Digoxin (Lanoxin) 0.125 mg PO DAILY@1800 [facility] Last Admin: 01/25/17 17:11 Dose: 0.125 mg Famotidine (Pepcid) 20 mg PO Q12 [facility] Last Admin: 01/25/17 20:22 Dose: 20 mg Furosemide (Lasix) 40 mg IVP DAILY [facility] Last Admin: 01/25/17 08:18 Dose: 40 mg Clindamycin Phosphate 600 mg/ (Sodium Chloride) 104 mls @ 104 mls/hr IVPB Q8 [facility] PRN Reason: Protocol Last Admin: 01/25/17 17:11 Dose: 104 mls/hr Insulin Human Regular (Humulin R) 0 units SC ACCU-CHECK [facility] PRN Reason: Protocol Last Admin: 01/25/17 22:02 Dose: Not Given Labetalol HCl (Trandate) 100 mg PO Q8 [facility] Last Admin: 01/25/17 17:12 Dose: 100 mg Methylprednisolone (Solu-Medrol) 20 mg IVP Q12 [facility] Last Admin: 01/25/17 20:23 Dose: 20 mg Metoprolol Tartrate (Lopressor) 12.5 mg PO Q12 [facility] Last Admin: 01/25/17 20:22 Dose: 12.5 mg Rivaroxaban (Xarelto) 15 mg PO DAILY@1700 [facility] PRN Reason: Protocol Last Admin: 01/25/17 17:12 Dose: Not Given - Labs Labs: 01/25/17 05:30 01/25/17 05:30 PT 10.7 Seconds (9.8-13.1) 01/21/17 04:15 INR 1.0 (0.9-1.2) 01/21/17 04:15 APTT 27.0 Seconds (25.6-37.1) 01/21/17 04:15
[2017-01-26] MEDS: Clindamycin 600 MG in Sodium Chloride 0.9% 100 ML IVPB SCH ×3 (00:25→16:27)
[2017-01-26] MEDS: Albuterol-Ipratrop 3 mg / 0.5 (3 ml) UD INH SCH ×6 (01:00→19:11)
[2017-01-26 04:52] LABS: MEAN CELL VOLUME 88.3 fl (81.0-99.0); MEAN CORPUSCULAR HEMOGLOBIN 29.1 pg (27.0-31.0); MEAN CORPUSCULAR HGB CONC 32.9 g/dL (33.0-37.0); WHITE BLOOD COUNT 6.3 K/uL (4.8-10.8)
[2017-01-26 05:01] LABS: ALB/GLOB RATIO 0.8 (1.0-2.1); BILIRUBIN,TOTAL 0.4 mg/dl (0.2-1.3); CALCIUM 8.2 mg/dL (8.4-10.2); POTASSIUM 4.2 MMOL/L (3.6-5.0); TOTAL PROTEIN 5.9 G/DL (6.3-8.2)
[2017-01-26 05:43] LABS: ABG ALLEN TEST YES; ABG MECHANICAL RATE 18; ARTERIAL BLOOD GAS HCO3 26.5 mmol/L (21-28); ARTERIAL BLOOD GAS MODE PRVC AC; ARTERIAL BLOOD GAS O2 CAPACITY 15.3 mL/dL (16-24); ARTERIAL BLOOD GAS O2 CONTENT 15.2 ML/dL (15-23); ARTERIAL BLOOD GAS PH 7.51 (7.35-7.45); ARTERIAL BLOOD GAS PO2 105 mm/Hg (80-100); ARTERIAL BLOOD HGB O2 SAT 95.6 % (95.0-98.0); ATERIAL BLOOD GAS PEEP 5; CARBOXYHEMOGLOBIN 1.5 % (0.5-1.5); HHB 0.9 % (0.0-5.0)
[2017-01-26] MEDS: Insulin Regular 100 units/ml SC SCH ×4 (06:11→22:14)
--- NOTE | 2017-01-26 07:11 | CP.PCM.PN ---
Subjective - Date & Time of Evaluation Date of Evaluation: 01/26/17 Time of Evaluation: 07:09 - Subjective Subjective: Surgery: Dr. Eagle Patient remains intubated. Per nursing no acute events. Patient unable to tolerate CPAP. anticoagulation held. Objective - Vital Signs/Intake and Output Vital Signs (last 24 hours): Temp Pulse Resp BP Pulse Ox 97.8 F 89 18 146/84 100 01/26/17 06:00 01/26/17 06:00 01/26/17 06:00 01/26/17 06:00 01/26/17 06:00 Intake and Output: 01/26/17 01/26/17 06:59 18:59 Intake Total 864 Output Total 825 Balance 39 - Medications Medications: Current Medications Acetylcysteine (Mucomyst 10% 4ml) 2 ml IH RBID [facility] Last Admin: 01/25/17 19:22 Dose: 2 ml Albuterol/Ipratropium (Duoneb 3 Mg/0.5 Mg (3 Ml) Ud) 3 ml INH RQ4 [facility] Last Admin: 01/26/17 05:31 Dose: 3 ml Amlodipine Besylate (Norvasc) 5 mg PO DAILY [facility] Last Admin: 01/25/17 08:19 Dose: 5 mg Digoxin (Lanoxin) 0.125 mg PO DAILY@1800 [facility] Last Admin: 01/25/17 17:11 Dose: 0.125 mg Famotidine (Pepcid) 20 mg PO Q12 [facility] Last Admin: 01/25/17 20:22 Dose: 20 mg Furosemide (Lasix) 40 mg IVP DAILY [facility] Last Admin: 01/25/17 08:18 Dose: 40 mg Clindamycin Phosphate 600 mg/ (Sodium Chloride) 104 mls @ 104 mls/hr IVPB Q8 [facility] PRN Reason: Protocol Last Admin: 01/26/17 00:25 Dose: 104 mls/hr Insulin Human Regular (Humulin R) 0 units SC ACCU-CHECK [facility] PRN Reason: Protocol Last Admin: 01/26/17 06:11 Dose: 2 unit Labetalol HCl (Trandate) 100 mg PO Q8 [facility] Last Admin: 01/26/17 00:25 Dose: 100 mg Methylprednisolone (Solu-Medrol) 20 mg IVP Q12 [facility] Last Admin: 01/25/17 20:23 Dose: 20 mg Metoprolol Tartrate (Lopressor) 12.5 mg PO Q12 [facility] Last Admin: 01/25/17 20:22 Dose: 12.5 mg Rivaroxaban (Xarelto) 15 mg PO DAILY@1700 [facility] PRN Reason: Protocol Last Admin: 01/25/17 17:12 Dose: Not Given - Labs Labs: 01/26/17 04:40 01/26/17 04:40 PT 10.7 Seconds (9.8-13.1) 01/21/17 04:15 INR 1.0 (0.9-1.2) 01/21/17 04:15 APTT 27.0 Seconds (25.6-37.1) 01/21/17 04:15 - Constitutional Appears: Non-toxic, No Acute Distress - Head Exam Head Exam: ATRAUMATIC, NORMOCEPHALIC - Eye Exam Eye Exam: EOMI, Normal appearance - ENT Exam ENT Exam: Mucous Membranes Moist Additional comments: ET tube in place - Respiratory Exam Respiratory Exam: NORMAL BREATHING PATTERN. absent: Respiratory Distress Additional comments: intubated on PRVC mode - Cardiovascular Exam Cardiovascular Exam: REGULAR RHYTHM. absent: Tachycardia - Extremities Exam Extremities Exam: Normal Inspection. absent: Calf Tenderness - Neurological Exam Neurological Exam: Alert, Awake Assessment and Plan - Assessment and Plan (Free Text) Assessment: 71 y/o female w/ respiratory failure, unable to wean from vent Plan: -tent. plan for OR Wed for trach -hold anticoagulation -NPO past mn on Thursday -further recs per Dr. Fco Dhillon PGY3
[2017-01-26] MEDS: Acetylcysteine 10% 4 ML IH SCH ×2 (07:34→19:10)
--- NOTE | 2017-01-26 08:00 | RAD ---
HISTORY: vented COMPARISON: Portable chest 01/25/2017. FINDINGS: Endotracheal tube is unchanged in position. LUNGS: Bilateral basilar atelectasis or infiltrate persists at the left greater than right lung bases. PLEURA: Small bilateral pleural effusions are unchanged as well. CARDIOVASCULAR: Mild pulmonary venous congestion pattern persists. OSSEOUS STRUCTURES: No significant abnormalities. VISUALIZED UPPER ABDOMEN: Normal. OTHER FINDINGS: None. IMPRESSION: Stable chest radiography with persistent bilateral airspace disease, small bilateral pleural effusions and limited pulmonary venous congestion again noted.
[2017-01-26] MEDS: MethylPREDNISolone 40 mg Vial IVP SCH ×2 (08:11→21:15)
[2017-01-26] MEDS: Lactobacillus Acidophilus 500 MU Cap PO SCH ×2 (08:13→17:00)
--- NOTE | 2017-01-26 10:46 | CARD ---
APPROVED REPORT EKG Measurement Heart [id number] <Conclusion> Sinus rhythm with marked sinus arrhythmia with occasional premature ventricular complexes Left axis deviation Low voltage QRS Nonspecific T wave abnormality Abnormal ECG
--- NOTE | 2017-01-26 13:27 | PN ---
CRITICAL CARE PROGRESS NOTE DATE: 01/26/2017 LOCATION: Patient in ICU, bed 425. TIME SPENT: 35 minutes. SUBJECTIVE: The patient is seen and evaluated at the bedside. Case was discussed in multidisciplinary ICU rounds. Events, past medical, surgical, and social history noted. A 71-year-old female, custodial bound status post PEG insertion, admitted after brief cardiorespiratory arrest, remains intubated on mechanical ventilation. History of dementia. Overnight, on AC/PRBC rate 18, tidal volume 380, oxygen FiO2 of 30%, PEEP of 5, saturation 99%, peak airway pressure 24, mean airway pressure 10, end-tidal CO2 of 24, exhaled rate 18, and exhaled tidal volume 390. No sedation. Remains comfortable on the ventilator. Eyes open. Can follow simple commands. No distress noted. Vital signs temperature 97.7, heart rate 67, regular, respiratory rate 18, blood pressure 139/82, saturation 100% on FiO2 of 30%. Intake 1944, output 2585, negative balance 641 PHYSICAL EXAMINATION: HEAD, EYES, EARS, NOSE AND THROAT: Pupils are reactive. Conjunctivae pink. Sclerae are white. NECK: Supple. No jugular venous distention. No carotid bruit. CHEST: Bilateral breath sounds. Scattered rhonchi. HEART: Rhythm regular. S1, S2 normal. ABDOMEN: PEG in place. Bowel sounds present. No distention. EXTREMITIES: Bilateral heel boots present. DP palpable, reduced intensity. NEUROLOGIC EXAMINATION: Alert, awake, and slow to respond. Moves all four extremities. CURRENT MEDICATIONS: Albuterol/Atrovent inhalation 3 mL via nebulizer q. 4, Mucomyst 10% 2 mL twice daily, clindamycin 600 mg q.8h., Lanoxin 0.125 mg p.o. daily, Pepcid 20 mg p.o. q. 12, Lasix 40 mg IV daily, Accu-Chek with regular insulin coverage, labetalol 100 mg q.8h., Solu-Medrol 20 mg IV q.12h., Lopressor 12.5 mg p.o. q. 2, Xarelto 15 mg p.o. on hold. LABORATORY DATA: WBC 6.3, hemoglobin 11.2, hematocrit 34, platelet count of 256. PT 10.7, INR 1, PTT 27. ABG; pH of 7.51, pCO2 of 31, pO2 105, oxygen saturation 99.1%. SMA-7: Sodium 134, potassium 4.2, chloride 102, CO2 of 20, blood urea nitrogen 29, creatinine 1.2, GFR of 44, random glucose 173, calcium 8.2, total bilirubin 0.4, AST 17, ALT 29, alkaline phosphatase 79, total protein of 5.9, albumin 2.9, and globulin 3.3. Microbiology: Sputum culture positive for Staphylococcus aureus. Chest x-ray, endotracheal tube in place. Haziness in left base consistent with atelectasis and/or infiltrate, bilateral small pleural effusion unchanged. IMPRESSION: 1. Neurology: Alert and awake. Eyes open. History of dementia status post brief cardiac arrest, suspected hypoxic brain injury. 2. Pulmonary: Hypoxic respiratory failure. Chest x-ray with infiltrate, left base and bilateral small pleural effusion. Weaning has been difficult, status post reintubation. Scheduled for tracheostomy on Thursday tentatively. Hold anticoagulation. 3. Cardiac: Paroxysmal atrial fibrillation, currently in sinus rhythm with a marked sinus arrhythmia and occasional premature ventricular complexes, left axis deviation, nonspecific ST-T changes. Appreciate cardiology evaluation. 4. Hematology. Leukocytosis trending down. Hemoglobin/hematocrit remains stable status post transfusion of packed red blood cells. 5. Renal: No acute issues noted. 6. Infectious Disease: Resolving pneumonia, suspected aspiration. Sputum culture positive for staph aureus, currently on clindamycin as per Infectious Disease consult. Keep the head of bed 30 degrees up. Continue feeding with aspiration precautions. Hold anticoagulation on Thursday and/or n.p.o. from midnight. Marcel Brown MD
[2017-01-26] MEDS: Digoxin 125 mcg (0.125 mg) Tab PO SCH (17:00)
[2017-01-27] MEDS: Albuterol-Ipratrop 3 mg / 0.5 (3 ml) UD INH SCH ×6 (00:36→19:27)
[2017-01-27 05:18] LABS: ABG ALLEN TEST YES; ABG MECHANICAL RATE 18; ARTERIAL BLOOD GAS MODE PRVC/AC; ARTERIAL BLOOD GAS O2 CAPACITY 15.1 mL/dL (16-24); ARTERIAL BLOOD GAS PO2 114 mm/Hg (80-100); ARTERIAL BLOOD HGB O2 SAT 96.4 % (95.0-98.0); ATERIAL BLOOD GAS PEEP 5; CARBOXYHEMOGLOBIN 1.5 % (0.5-1.5); HHB 0.5 % (0.0-5.0); METHEMOGLOBIN 1.6 % (0.0-3.0)
[2017-01-27 05:21] LABS: BASO % 0.2 % (0.0-2.0); HEMATOCRIT 31.8 % (34.0-47.0); LYMPH # 0.4 K/uL (1.0-4.3); LYMPH % 5.3 % (20.0-40.0); MEAN CELL VOLUME 87.4 fl (81.0-99.0); MEAN CORPUSCULAR HEMOGLOBIN 29.9 pg (27.0-31.0); MEAN CORPUSCULAR HGB CONC 34.2 g/dL (33.0-37.0); MONO # 0.3 K/uL (0.0-0.8); MONO % 4.4 % (0.0-10.0); NEUT # 6.2 K/uL (1.8-7.0); NEUT % 90.1 % (50.0-75.0); PLATELET COUNT 255 K/uL (130-400); RED CELL DISTRIBUTION WIDTH 21.3 % (11.5-14.5); WHITE BLOOD COUNT 6.9 K/uL (4.8-10.8)
[2017-01-27 05:50] LABS: CALCIUM 8.7 mg/dL (8.4-10.2); POTASSIUM 3.8 MMOL/L (3.6-5.0)
[2017-01-27 06:05] LABS: PARTIAL THROMBOPLASTIN TIME 27.6 Seconds (25.6-37.1)
[2017-01-27 06:31] LABS: NEUTROPHIL 92 % (42-75); TOTAL CELLS COUNTED 100
[2017-01-27] MEDS: Insulin Regular 100 units/ml SC SCH ×4 (06:38→23:07)
[2017-01-27] MEDS: Acetylcysteine 10% 4 ML IH SCH ×3 (07:21→20:06)
[2017-01-27] MEDS: Lactobacillus Acidophilus 500 MU Cap PO SCH ×2 (08:49→18:44)
[2017-01-27] MEDS: MethylPREDNISolone 40 mg Vial IVP SCH ×2 (08:51→21:40)
[2017-01-27] MEDS ORDERED: methylPREDNISolone 10 MG in Sodium Chloride 0.9% 50 ML IV SCH (09:00)
--- NOTE | 2017-01-27 10:06 | RAD ---
HISTORY: Intubated COMPARISON: 01/26/2017. FINDINGS: The endotracheal tube terminates 1 cm proximal to the collin. LUNGS: There is redemonstration of airspace disease in the perihilar regions and both lung bases. PLEURA: There are persistent small pleural effusions, no pneumothorax apparent. CARDIOVASCULAR: The cardiomediastinal silhouette is stable. OSSEOUS STRUCTURES: No significant abnormalities. VISUALIZED UPPER ABDOMEN: Normal. OTHER FINDINGS: None. IMPRESSION: No significant interval change in bilateral perihilar and lower lobe airspace disease which may represent pulmonary edema or pneumonia. Persistent small pleural effusions. Follow-up is advised.
--- NOTE | 2017-01-27 10:21 | CP.CCUPN ---
<Perry Angelo - Last Filed: 01/27/17 11:01> CCU Subjective - Physician Review Subjective (Free Text): 01/27/17 10:17 Patient this morning. No acute distress, denies pain, responsive to name call, opens eyes, and follows commands. Patient remains intubated with ventilation support. Patient on PRVC A/C was unable to tolerate CPAP yesterday. Tube feed held, patient NPO for procedure today. Xarelto held. Tracheostomy scheduled for today @ 13:30. Critical Care Time Spent (in minutes): 35 CCU Objective - Vital Signs / Intake & Output Vital Signs (Last 4 hours): Vital Signs Temp Pulse Resp BP Pulse Ox 01/27/17 09:50 73 150/88 01/27/17 08:49 132/84 01/27/17 08:00 96.8 F L 74 9 L 132/84 100 Intake and Output (Last 8hrs): Intake & Output 01/26/17 01/27/17 01/27/17 22:59 06:59 14:59 Intake Total 520 180 4 Output Total 400 1100 Balance 120 -920 4 Weight 111 lb 2.24 oz Intake: IV 0 4 Tube Feeding 320 80 Free Water Flush 200 100 Output: Gastric Amount 0 Stomach 0 Urine 400 1100 Urethral (Atkins) 400 1100 Other: # Bowel Movements 1 - Physical Exam Head: Positive for: Normocephalic Pupils: Positive for: PERRL Extroacular Muscles: Positive for: EOMI Conjunctiva: Positive for: Normal. Negative for: Icteric Mouth: Positive for: Moist Mucous Membranes Neck: Positive for: JVD. Negative for: Meningeal Signs Respiratory/Chest: Positive for: Decreased Breath Sounds, Rales. Negative for: Accessory Muscle Use, Wheezes Cardiovascular: Positive for: Irregular Rhythm. Negative for: Murmurs, Rub Abdomen: Positive for: Normal Bowel Sounds, Other (PEG intact). Negative for: Tenderness, Distention Lower Extremity: Positive for: NORMAL PULSES. Negative for: CALF TENDERNESS, Cyanosis Neurological: Positive for: Other (on ventilator) Skin: Positive for: Warm. Negative for: Rashes Psychiatric: Positive for: Alert - Medications Active Medications: Active Medications Generic Name Dose Route Start Last Admin Trade Name Freq PRN Reason Stop Dose Admin Acetylcysteine 2 ml 01/20/17 20:00 01/27/17 07:21 Mucomyst 10% 4ml IH 2 ml RBID [facility] Administration Albuterol/Ipratropium 3 ml 01/21/17 12:00 01/27/17 07:21 Duoneb 3 Mg/0.5 Mg (3 Ml) Ud INH 3 ml RQ4 LINA Administration Amlodipine Besylate 5 mg 01/24/17 12:15 01/27/17 08:50 Norvasc PO Not Given DAILY [facility] Digoxin 0.125 mg 01/22/17 18:00 01/26/17 17:00 Lanoxin PO 0.125 mg DAILY@1800 [facility] Administration Famotidine 20 mg 01/16/17 21:00 01/27/17 08:50 Pepcid PO Not Given Q12 [facility] Furosemide 40 mg 01/24/17 16:30 01/27/17 08:49 Lasix IVP 40 mg DAILY [facility] Administration Insulin Human Regular 0 units 01/16/17 11:48 01/27/17 06:38 Humulin R SC Not Given ACCU-CHECK [facility] Protocol Labetalol HCl 100 mg 01/24/17 17:00 01/27/17 08:51 Trandate PO Not Given Q8 [facility] Lactobacillus Acidophilus 1 cap 01/26/17 09:00 01/27/17 08:49 Bacid Acidophilus PO Not Given BID [facility] Methylprednisolone 10 mg 01/27/17 09:00 01/27/17 08:51 Solu-Medrol IVP 10 mg Q12 [facility] Administration Metoprolol Tartrate 12.5 mg 01/21/17 10:15 01/27/17 09:50 Lopressor PO 12.5 mg Q12 [facility] Administration Rivaroxaban 15 mg 01/16/17 17:00 01/25/17 17:12 Xarelto PO Not Given DAILY@1700 [facility] Protocol - Patient Studies Lab Studies: Lab Studies 01/27/17 01/27/17 01/27/17 Range/Units 06:34 05:06 05:00 WBC (4.8-10.8) K/uL RBC (3.80-5.20) Mil/uL Hgb (12.0-16.0) g/dL Hct (34.0-47.0) % MCV (81.0-99.0) fl MCH (27.0-31.0) pg MCHC (33.0-37.0) g/dL RDW (11.5-14.5) % Plt Count (130-400) K/uL MPV (7.2-11.7) fl Neut % (Auto) (50.0-75.0) % Lymph % (Auto) (20.0-40.0) % [place] % (Auto) (0.0-10.0) % Eos % (Auto) (0.0-4.0) % Baso % (Auto) (0.0-2.0) % Neut # (1.8-7.0) K/uL Lymph # (1.0-4.3) K/uL [place] # (0.0-0.8) K/uL Eos # (0.0-0.7) K/uL Baso # (0.0-0.2) K/uL Neutrophils % (Manual) (42-75) % Lymphocytes % (Manual) (20-50) % Monocytes % (Manual) (0-10) % Platelet Estimate (NORMAL) RBC Morphology (NORMAL) PT (9.8-13.1) Seconds INR (0.9-1.2) APTT (25.6-37.1) Seconds pCO2 33 L (35-45) mm/Hg pO2 114 H (80-100) mm/Hg HCO3 27.0 (21-28) mmol/L ABG pH 7.50 H (7.35-7.45) ABG Total CO2 26.7 (22-28) mmol/L ABG O2 Saturation 99.5 H (95-98) % ABG O2 Content 15.0 (15-23) ML/dL ABG Base Excess 2.7 (-2.0-3.0) mmol/L ABG Hemoglobin 10.9 L (11.7-17.4) g/dL ABG Carboxyhemoglobin 1.5 (0.5-1.5) % POC ABG HHb (Measured) 0.5 (0.0-5.0) % ABG Methemoglobin 1.6 (0.0-3.0) % ABG O2 Capacity 15.1 L (16-24) mL/dL Rakan Test Yes A-a O2 Difference 59.0 mm/Hg Hgb O2 Saturation 96.4 (95.0-98.0) % Vent Mode Prvc/ac Mechanical Rate 18 FiO2 30.0 % Tidal Volume 380 PEEP 5 Sodium (132-148) mmol/l Potassium (3.6-5.0) MMOL/L Chloride (98-107) mmol/L Carbon Dioxide (22-30) mmol/L Anion Gap (10-20) BUN (7-17) mg/dl Creatinine (0.7-1.2) mg/dL Est GFR ( Amer) Est GFR (Non-Af Amer) POC Glucose (mg/dL) 181 H (65-110) mg/dL Random Glucose (65-105) mg/dL Calcium (8.4-10.2) mg/dL Blood Type O POSITIVE Antibody Screen Negative BBK History Checked Patient has bt 01/27/17 01/27/17 01/27/17 Range/Units 05:00 05:00 05:00 WBC 6.9 (4.8-10.8) K/uL RBC 3.64 L (3.80-5.20) Mil/uL Hgb 10.9 L (12.0-16.0) g/dL Hct 31.8 L (34.0-47.0) % MCV 87.4 (81.0-99.0) fl MCH 29.9 (27.0-31.0) pg MCHC 34.2 (33.0-37.0) g/dL RDW 21.3 H (11.5-14.5) % Plt Count 255 (130-400) K/uL MPV 8.0 (7.2-11.7) fl Neut % (Auto) 90.1 H (50.0-75.0) % Lymph % (Auto) 5.3 L (20.0-40.0) % [place] % (Auto) 4.4 (0.0-10.0) % Eos % (Auto) 0.0 (0.0-4.0) % Baso % (Auto) 0.2 (0.0-2.0) % Neut # 6.2 (1.8-7.0) K/uL Lymph # 0.4 L (1.0-4.3) K/uL [place] # 0.3 (0.0-0.8) K/uL Eos # 0.0 (0.0-0.7) K/uL Baso # 0.0 (0.0-0.2) K/uL Neutrophils % (Manual) 92 H (42-75) % Lymphocytes % (Manual) 5 L (20-50) % Monocytes % (Manual) 3 (0-10) % Platelet Estimate Normal (NORMAL) RBC Morphology Normal (NORMAL) PT 11.3 (9.8-13.1) Seconds INR 1.0 (0.9-1.2) APTT 27.6 (25.6-37.1) Seconds pCO2 (35-45) mm/Hg pO2 (80-100) mm/Hg HCO3 (21-28) mmol/L ABG pH (7.35-7.45) ABG Total CO2 (22-28) mmol/L ABG O2 Saturation (95-98) % ABG O2 Content (15-23) ML/dL ABG Base Excess (-2.0-3.0) mmol/L ABG Hemoglobin (11.7-17.4) g/dL ABG Carboxyhemoglobin (0.5-1.5) % POC ABG HHb (Measured) (0.0-5.0) % ABG Methemoglobin (0.0-3.0) % ABG O2 Capacity (16-24) mL/dL Rakan Test A-a O2 Difference mm/Hg Hgb O2 Saturation (95.0-98.0) % Vent Mode Mechanical Rate FiO2 % Tidal Volume PEEP Sodium 132 (132-148) mmol/l Potassium 3.8 (3.6-5.0) MMOL/L Chloride 100 (98-107) mmol/L Carbon Dioxide 24 (22-30) mmol/L Anion Gap 11 (10-20) BUN 29 H (7-17) mg/dl Creatinine 1.1 (0.7-1.2) mg/dL Est GFR ( Amer) 59 Est GFR (Non-Af Amer) 49 POC Glucose (mg/dL) (65-110) mg/dL Random Glucose 178 H (65-105) mg/dL Calcium 8.7 (8.4-10.2) mg/dL Blood Type Antibody Screen BBK History Checked 01/26/17 01/26/17 01/26/17 Range/Units 22:12 15:49 11:11 WBC (4.8-10.8) K/uL RBC (3.80-5.20) Mil/uL Hgb (12.0-16.0) g/dL Hct (34.0-47.0) % MCV (81.0-99.0) fl MCH (27.0-31.0) pg MCHC (33.0-37.0) g/dL RDW (11.5-14.5) % Plt Count (130-400) K/uL MPV (7.2-11.7) fl Neut % (Auto) (50.0-75.0) % Lymph % (Auto) (20.0-40.0) % [place] % (Auto) (0.0-10.0) % Eos % (Auto) (0.0-4.0) % Baso % (Auto) (0.0-2.0) % Neut # (1.8-7.0) K/uL Lymph # (1.0-4.3) K/uL [place] # (0.0-0.8) K/uL Eos # (0.0-0.7) K/uL Baso # (0.0-0.2) K/uL Neutrophils % (Manual) (42-75) % Lymphocytes % (Manual) (20-50) % Monocytes % (Manual) (0-10) % Platelet Estimate (NORMAL) RBC Morphology (NORMAL) PT (9.8-13.1) Seconds INR (0.9-1.2) APTT (25.6-37.1) Seconds pCO2 (35-45) mm/Hg pO2 (80-100) mm/Hg HCO3 (21-28) mmol/L ABG pH (7.35-7.45) ABG Total CO2 (22-28) mmol/L ABG O2 Saturation (95-98) % ABG O2 Content (15-23) ML/dL ABG Base Excess (-2.0-3.0) mmol/L ABG Hemoglobin (11.7-17.4) g/dL ABG Carboxyhemoglobin (0.5-1.5) % POC ABG HHb (Measured) (0.0-5.0) % ABG Methemoglobin (0.0-3.0) % ABG O2 Capacity (16-24) mL/dL Rakan Test A-a O2 Difference mm/Hg Hgb O2 Saturation (95.0-98.0) % Vent Mode Mechanical Rate FiO2 % Tidal Volume PEEP Sodium (132-148) mmol/l Potassium (3.6-5.0) MMOL/L Chloride (98-107) mmol/L Carbon Dioxide (22-30) mmol/L Anion Gap (10-20) BUN (7-17) mg/dl Creatinine (0.7-1.2) mg/dL Est GFR ( Amer) Est GFR (Non-Af Amer) POC Glucose (mg/dL) 166 H 178 H 142 H (65-110) mg/dL Random Glucose (65-105) mg/dL Calcium (8.4-10.2) mg/dL Blood Type Antibody Screen BBK History Checked Laboratory Results - last 24 hr 01/26/17 01/26/17 01/26/17 11:11 15:49 22:12 WBC RBC Hgb Hct MCV MCH MCHC RDW Plt Count MPV Neut % (Auto) Lymph % (Auto) [place] % (Auto) Eos % (Auto) Baso % (Auto) Neut # Lymph # [place] # Eos # Baso # Neutrophils % (Manual) Lymphocytes % (Manual) Monocytes % (Manual) Platelet Estimate RBC Morphology PT INR APTT pCO2 pO2 HCO3 ABG pH ABG Total CO2 ABG O2 Saturation ABG O2 Content ABG Base Excess ABG Hemoglobin ABG Carboxyhemoglobin POC ABG HHb (Measured) ABG Methemoglobin ABG O2 Capacity Rakan Test A-a O2 Difference Hgb O2 Saturation Vent Mode Mechanical Rate FiO2 Tidal Volume PEEP Sodium Potassium Chloride Carbon Dioxide Anion Gap BUN Creatinine Est GFR ( Amer) Est GFR (Non-Af Amer) POC Glucose (mg/dL) 142 H 178 H 166 H Random Glucose Calcium Blood Type Antibody Screen BBK History Checked 01/27/17 01/27/17 01/27/17 05:00 05:00 05:00 WBC 6.9 RBC 3.64 L Hgb 10.9 L Hct 31.8 L MCV 87.4 MCH 29.9 MCHC 34.2 RDW 21.3 H Plt Count 255 MPV 8.0 Neut % (Auto) 90.1 H Lymph % (Auto) 5.3 L [place] % (Auto) 4.4 Eos % (Auto) 0.0 Baso % (Auto) 0.2 Neut # 6.2 Lymph # 0.4 L [place] # 0.3 Eos # 0.0 Baso # 0.0 Neutrophils % (Manual) 92 H Lymphocytes % (Manual) 5 L Monocytes % (Manual) 3 Platelet Estimate Normal RBC Morphology Normal PT 11.3 INR 1.0 APTT 27.6 pCO2 pO2 HCO3 ABG pH ABG Total CO2 ABG O2 Saturation ABG O2 Content ABG Base Excess ABG Hemoglobin ABG Carboxyhemoglobin POC ABG HHb (Measured) ABG Methemoglobin ABG O2 Capacity Rakan Test A-a O2 Difference Hgb O2 Saturation Vent Mode Mechanical Rate FiO2 Tidal Volume PEEP Sodium 132 Potassium 3.8 Chloride 100 Carbon Dioxide 24 Anion Gap 11 BUN 29 H Creatinine 1.1 Est GFR ( Amer) 59 Est GFR (Non-Af Amer) 49 POC Glucose (mg/dL) Random Glucose 178 H Calcium 8.7 Blood Type Antibody Screen BBK History Checked 01/27/17 01/27/17 01/27/17 05:00 05:06 06:34 WBC RBC Hgb Hct MCV MCH MCHC RDW Plt Count MPV Neut % (Auto) Lymph % (Auto) [place] % (Auto) Eos % (Auto) Baso % (Auto) Neut # Lymph # [place] # Eos # Baso # Neutrophils % (Manual) Lymphocytes % (Manual) Monocytes % (Manual) Platelet Estimate RBC Morphology PT INR APTT pCO2 33 L pO2 114 H HCO3 27.0 ABG pH 7.50 H ABG Total CO2 26.7 ABG O2 Saturation 99.5 H ABG O2 Content 15.0 ABG Base Excess 2.7 ABG Hemoglobin 10.9 L ABG Carboxyhemoglobin 1.5 POC ABG HHb (Measured) 0.5 ABG Methemoglobin 1.6 ABG O2 Capacity 15.1 L Rakan Test Yes A-a O2 Difference 59.0 Hgb O2 Saturation 96.4 Vent Mode Prvc/ac Mechanical Rate 18 FiO2 30.0 Tidal Volume 380 PEEP 5 Sodium Potassium Chloride Carbon Dioxide Anion Gap BUN Creatinine Est GFR ( Amer) Est GFR (Non-Af Amer) POC Glucose (mg/dL) 181 H Random Glucose Calcium Blood Type O POSITIVE Antibody Screen Negative BBK History Checked Patient has bt Fingerstick Blood Sugar Results: 188 Review of Systems - Review of Systems Systems not reviewed;Unavailable: Intubated Critical Care Progress Note - Nutrition Nutrition: Nutrition Category Date Time Status NPO Diet [DIET] Diets 01/27/17 Breakfast Active Assessment/Plan - Assessment and Plan (Free Text) Assessment: 71 y/o woman w/ pmh of PEG (placed 2 days prior to admission), bed bound, dementia, CHF EF 30%, AFib, HTN, and HLD in ICU for respiratory failure. Plan: Acute respiratory failure with hypercapnia - re-intubated 01/16/2017 - PRVC A/C rate 14, vol 380, PEEP 5, FIO2 30% - ABG: pCO2 33, pO2 114, HCO3 27, pH 7.50 - CXR 01/27/2017: focal infiltrates and small persistent pleural effusions remain unchanged - patient failed at weaning from ventilation - pulmonary support bed - tracheostomy scheduled today for 13:30 - surgery recommendations appreciated - Pulmonary consult, Dr. Mendoza, recommendations appreciated COPD exacerbation - patient has history of emphysema - patient retaining CO2 - methyprednisolone lowered to 10 mg IV to Q12h - c/w mucomyst 2 mL BID - c/w duonebs to Q4h - c/w chest PT Q4h s/p duoneb therapy I & O - negative balance - on lasix 40 mg IV daily Diet - reports appetite - PEG placed due to poor nutrition - tube feeds 40mL/hr held for procedure today - c/w glucerna 1.2 when feeds resume - on sliding scale insulin Type 2 diabetes - newly diagnosed, HbA1c 6.9% - on insulin sliding scale HCAP (healthcare-associated pneumonia) - sputum culture 01/10/2017 grew Staph aureus susceptible to all antibiotics except penicillin - sputum culture 01/16/2017 shows normal oral errol - DC'ed IV Piperacillin Sod/Tazobactam 2.25 g Q6h on day 15 - clindamycin 600 mg IV Q8h day 7 - c/w tylenol for fever prn - ID consult, Dr. Mosqueda, recommendations appreciated Cardiac arrest - ACLS initiated in detention, ROSC achieved prior to EMS arrival, intubated for agonal breathing - improved mental status, Patient awake, oriented, follow commands. - K+ normalized Anemia - anemic since admission, Hb 6.9 01/12/2017 - s/p 1 PRBC 01/12/2017 - s/p 2 PRBC 01/22/2017 - No evidence of active bleeding - repeat Hb 10.9 Atrial fibrillation - chronic, home meds restarted - xarelto 15 mg PO daily, held for 72 hours prior to tracheostomy - digoxin 0.125 mg PO daily - lopressor 12.5 mg PO Q12h restarted for tachycarida - cardiac monitoring Prophylactic Measures - pepcid 20 mg IVP Q12 - SCDs - PT/OT eval/treat recommendations appreciated, on hold currently due to re- intubation <Marcel Brown V - Last Filed: 01/27/17 13:28> CCU Subjective - Physician Review Events Since Last Encounter (Free Text): 01/27/17 13:25 patient is seen and examined at bedside.case discussed in detail in am ICU rounds. agree with plan of care as detailed in resident's note, reflects my participation in the care of the above patient through the day CCU Objective - Vital Signs / Intake & Output Vital Signs (Last 4 hours): Vital Signs Temp Pulse Resp BP Pulse Ox 01/27/17 12:00 98.2 F 81 12 142/117 H 99 01/27/17 10:00 73 15 150/88 100 01/27/17 09:50 73 150/88 Intake and Output (Last 8hrs): Intake & Output 01/26/17 01/27/17 01/27/17 22:59 06:59 14:59 Intake Total 520 180 104 Output Total 400 1100 Balance 120 -920 104 Weight 111 lb 2.24 oz Intake: IV 0 4 Intake, Piggyback 100 Tube Feeding 320 80 Free Water Flush 200 100 Output: Gastric Amount 0 Stomach 0 Urine 400 1100 Urethral (Atkins) 400 1100 Other: # Bowel Movements 1 1 - Medications Active Medications: Active Medications Generic Name Dose Route Start Last Admin Trade Name Freq PRN Reason Stop Dose Admin Acetylcysteine 2 ml 01/20/17 20:00 01/27/17 07:21 Mucomyst 10% 4ml IH 2 ml RBID LINA Administration Albuterol/Ipratropium 3 ml 01/21/17 12:00 01/27/17 11:09 Duoneb 3 Mg/0.5 Mg (3 Ml) Ud INH 3 ml RQ4 [facility]INA Administration Amlodipine Besylate 5 mg 01/24/17 12:15 01/27/17 08:50 Norvasc PO Not Given DAILY [facility] Digoxin 0.125 mg 01/22/17 18:00 01/26/17 17:00 Lanoxin PO 0.125 mg DAILY@1800 [facility] Administration Famotidine 20 mg 01/16/17 21:00 01/27/17 08:50 Pepcid PO Not Given Q12 [facility] Furosemide 40 mg 01/24/17 16:30 01/27/17 08:49 Lasix IVP 40 mg DAILY [facility] Administration Clindamycin Phosphate 600 mg/ 104 mls @ 104 mls/hr 01/27/17 11:00 01/27/17 12 :06 Sodium Chloride IVPB 104 mls/hr Q8 [facility] Administration Protocol Insulin Human Regular 0 units 01/16/17 11:48 01/27/17 12:07 Humulin R SC Not Given ACCU-CHECK [facility] Protocol Labetalol HCl 100 mg 01/24/17 17:00 01/27/17 08:51 Trandate PO Not Given Q8 [facility] Lactobacillus Acidophilus 1 cap 01/26/17 09:00 01/27/17 08:49 Bacid Acidophilus PO Not Given BID [facility] Methylprednisolone 10 mg 01/27/17 09:00 01/27/17 08:51 Solu-Medrol IVP 10 mg Q12 [facility] Administration Metoprolol Tartrate 12.5 mg 01/21/17 10:15 01/27/17 09:50 Lopressor PO 12.5 mg Q12 [facility] Administration Rivaroxaban 15 mg 01/16/17 17:00 01/25/17 17:12 Xarelto PO Not Given DAILY@1700 [facility] Protocol - Patient Studies Lab Studies: Lab Studies 01/27/17 01/27/17 01/27/17 Range/Units 11:12 06:34 05:06 WBC (4.8-10.8) K/uL RBC (3.80-5.20) Mil/uL Hgb (12.0-16.0) g/dL Hct (34.0-47.0) % MCV (81.0-99.0) fl MCH (27.0-31.0) pg MCHC (33.0-37.0) g/dL RDW (11.5-14.5) % Plt Count (130-400) K/uL MPV (7.2-11.7) fl Neut % (Auto) (50.0-75.0) % Lymph % (Auto) (20.0-40.0) % [place] % (Auto) (0.0-10.0) % Eos % (Auto) (0.0-4.0) % Baso % (Auto) (0.0-2.0) % Neut # (1.8-7.0) K/uL Lymph # (1.0-4.3) K/uL [place] # (0.0-0.8) K/uL Eos # (0.0-0.7) K/uL Baso # (0.0-0.2) K/uL Neutrophils % (Manual) (42-75) % Lymphocytes % (Manual) (20-50) % Monocytes % (Manual) (0-10) % Platelet Estimate (NORMAL) RBC Morphology (NORMAL) PT (9.8-13.1) Seconds INR (0.9-1.2) APTT (25.6-37.1) Seconds pCO2 33 L (35-45) mm/Hg pO2 114 H (80-100) mm/Hg HCO3 27.0 (21-28) mmol/L ABG pH 7.50 H (7.35-7.45) ABG Total CO2 26.7 (22-28) mmol/L ABG O2 Saturation 99.5 H (95-98) % ABG O2 Content 15.0 (15-23) ML/dL ABG Base Excess 2.7 (-2.0-3.0) mmol/L ABG Hemoglobin 10.9 L (11.7-17.4) g/dL ABG Carboxyhemoglobin 1.5 (0.5-1.5) % POC ABG HHb (Measured) 0.5 (0.0-5.0) % ABG Methemoglobin 1.6 (0.0-3.0) % ABG O2 Capacity 15.1 L (16-24) mL/dL Rakan Test Yes A-a O2 Difference 59.0 mm/Hg Hgb O2 Saturation 96.4 (95.0-98.0) % Vent Mode Prvc/ac Mechanical Rate 18 FiO2 30.0 % Tidal Volume 380 PEEP 5 Sodium (132-148) mmol/l Potassium (3.6-5.0) MMOL/L Chloride (98-107) mmol/L Carbon Dioxide (22-30) mmol/L Anion Gap (10-20) BUN (7-17) mg/dl Creatinine (0.7-1.2) mg/dL Est GFR ( Amer) Est GFR (Non-Af Amer) POC Glucose (mg/dL) 150 H 181 H (65-110) mg/dL Random Glucose (65-105) mg/dL Calcium (8.4-10.2) mg/dL Blood Type Antibody Screen BBK History Checked 01/27/17 01/27/17 01/27/17 Range/Units 05:00 05:00 05:00 WBC 6.9 (4.8-10.8) K/uL RBC 3.64 L (3.80-5.20) Mil/uL Hgb 10.9 L (12.0-16.0) g/dL Hct 31.8 L (34.0-47.0) % MCV 87.4 (81.0-99.0) fl MCH 29.9 (27.0-31.0) pg MCHC 34.2 (33.0-37.0) g/dL RDW 21.3 H (11.5-14.5) % Plt Count 255 (130-400) K/uL MPV 8.0 (7.2-11.7) fl Neut % (Auto) 90.1 H (50.0-75.0) % Lymph % (Auto) 5.3 L (20.0-40.0) % [place] % (Auto) 4.4 (0.0-10.0) % Eos % (Auto) 0.0 (0.0-4.0) % Baso % (Auto) 0.2 (0.0-2.0) % Neut # 6.2 (1.8-7.0) K/uL Lymph # 0.4 L (1.0-4.3) K/uL [place] # 0.3 (0.0-0.8) K/uL Eos # 0.0 (0.0-0.7) K/uL Baso # 0.0 (0.0-0.2) K/uL Neutrophils % (Manual) 92 H (42-75) % Lymphocytes % (Manual) 5 L (20-50) % Monocytes % (Manual) 3 (0-10) % Platelet Estimate Normal (NORMAL) RBC Morphology Normal (NORMAL) PT (9.8-13.1) Seconds INR (0.9-1.2) APTT (25.6-37.1) Seconds pCO2 (35-45) mm/Hg pO2 (80-100) mm/Hg HCO3 (21-28) mmol/L ABG pH (7.35-7.45) ABG Total CO2 (22-28) mmol/L ABG O2 Saturation (95-98) % ABG O2 Content (15-23) ML/dL ABG Base Excess (-2.0-3.0) mmol/L ABG Hemoglobin (11.7-17.4) g/dL ABG Carboxyhemoglobin (0.5-1.5) % POC ABG HHb (Measured) (0.0-5.0) % ABG Methemoglobin (0.0-3.0) % ABG O2 Capacity (16-24) mL/dL Rakan Test A-a O2 Difference mm/Hg Hgb O2 Saturation (95.0-98.0) % Vent Mode Mechanical Rate FiO2 % Tidal Volume PEEP Sodium 132 (132-148) mmol/l Potassium 3.8 (3.6-5.0) MMOL/L Chloride 100 (98-107) mmol/L Carbon Dioxide 24 (22-30) mmol/L Anion Gap 11 (10-20) BUN 29 H (7-17) mg/dl Creatinine 1.1 (0.7-1.2) mg/dL Est GFR ( Amer) 59 Est GFR (Non-Af Amer) 49 POC Glucose (mg/dL) (65-110) mg/dL Random Glucose 178 H (65-105) mg/dL Calcium 8.7 (8.4-10.2) mg/dL Blood Type O POSITIVE Antibody Screen Negative BBK History Checked Patient has bt 01/27/17 01/26/17 01/26/17 Range/Units 05:00 22:12 15:49 WBC (4.8-10.8) K/uL RBC (3.80-5.20) Mil/uL Hgb (12.0-16.0) g/dL Hct (34.0-47.0) % MCV (81.0-99.0) fl MCH (27.0-31.0) pg MCHC (33.0-37.0) g/dL RDW (11.5-14.5) % Plt Count (130-400) K/uL MPV (7.2-11.7) fl Neut % (Auto) (50.0-75.0) % Lymph % (Auto) (20.0-40.0) % [place] % (Auto) (0.0-10.0) % Eos % (Auto) (0.0-4.0) % Baso % (Auto) (0.0-2.0) % Neut # (1.8-7.0) K/uL Lymph # (1.0-4.3) K/uL [place] # (0.0-0.8) K/uL Eos # (0.0-0.7) K/uL Baso # (0.0-0.2) K/uL Neutrophils % (Manual) (42-75) % Lymphocytes % (Manual) (20-50) % Monocytes % (Manual) (0-10) % Platelet Estimate (NORMAL) RBC Morphology (NORMAL) PT 11.3 (9.8-13.1) Seconds INR 1.0 (0.9-1.2) APTT 27.6 (25.6-37.1) Seconds pCO2 (35-45) mm/Hg pO2 (80-100) mm/Hg HCO3 (21-28) mmol/L ABG pH (7.35-7.45) ABG Total CO2 (22-28) mmol/L ABG O2 Saturation (95-98) % ABG O2 Content (15-23) ML/dL ABG Base Excess (-2.0-3.0) mmol/L ABG Hemoglobin (11.7-17.4) g/dL ABG Carboxyhemoglobin (0.5-1.5) % POC ABG HHb (Measured) (0.0-5.0) % ABG Methemoglobin (0.0-3.0) % ABG O2 Capacity (16-24) mL/dL Rakan Test A-a O2 Difference mm/Hg Hgb O2 Saturation (95.0-98.0) % Vent Mode Mechanical Rate FiO2 % Tidal Volume PEEP Sodium (132-148) mmol/l Potassium (3.6-5.0) MMOL/L Chloride (98-107) mmol/L Carbon Dioxide (22-30) mmol/L Anion Gap (10-20) BUN (7-17) mg/dl Creatinine (0.7-1.2) mg/dL Est GFR ( Amer) Est GFR (Non-Af Amer) POC Glucose (mg/dL) 166 H 178 H (65-110) mg/dL Random Glucose (65-105) mg/dL Calcium (8.4-10.2) mg/dL Blood Type Antibody Screen BBK History Checked Laboratory Results - last 24 hr 01/26/17 01/26/17 01/27/17 15:49 22:12 05:00 WBC RBC Hgb Hct MCV MCH MCHC RDW Plt Count MPV Neut % (Auto) Lymph % (Auto) [place] % (Auto) Eos % (Auto) Baso % (Auto) Neut # Lymph # [place] # Eos # Baso # Neutrophils % (Manual) Lymphocytes % (Manual) Monocytes % (Manual) Platelet Estimate RBC Morphology PT 11.3 INR 1.0 APTT 27.6 pCO2 pO2 HCO3 ABG pH ABG Total CO2 ABG O2 Saturation ABG O2 Content ABG Base Excess ABG Hemoglobin ABG Carboxyhemoglobin POC ABG HHb (Measured) ABG Methemoglobin ABG O2 Capacity Rakan Test A-a O2 Difference Hgb O2 Saturation Vent Mode Mechanical Rate FiO2 Tidal Volume PEEP Sodium Potassium Chloride Carbon Dioxide Anion Gap BUN Creatinine Est GFR ( Amer) Est GFR (Non-Af Amer) POC Glucose (mg/dL) 178 H 166 H Random Glucose Calcium Blood Type Antibody Screen BBK History Checked 01/27/17 01/27/17 01/27/17 05:00 05:00 05:00 WBC 6.9 RBC 3.64 L Hgb 10.9 L Hct 31.8 L MCV 87.4 MCH 29.9 MCHC 34.2 RDW 21.3 H Plt Count 255 MPV 8.0 Neut % (Auto) 90.1 H Lymph % (Auto) 5.3 L [place] % (Auto) 4.4 Eos % (Auto) 0.0 Baso % (Auto) 0.2 Neut # 6.2 Lymph # 0.4 L [place] # 0.3 Eos # 0.0 Baso # 0.0 Neutrophils % (Manual) 92 H Lymphocytes % (Manual) 5 L Monocytes % (Manual) 3 Platelet Estimate Normal RBC Morphology Normal PT INR APTT pCO2 pO2 HCO3 ABG pH ABG Total CO2 ABG O2 Saturation ABG O2 Content ABG Base Excess ABG Hemoglobin ABG Carboxyhemoglobin POC ABG HHb (Measured) ABG Methemoglobin ABG O2 Capacity Rakan Test A-a O2 Difference Hgb O2 Saturation Vent Mode Mechanical Rate FiO2 Tidal Volume PEEP Sodium 132 Potassium 3.8 Chloride 100 Carbon Dioxide 24 Anion Gap 11 BUN 29 H Creatinine 1.1 Est GFR ( Amer) 59 Est GFR (Non-Af Amer) 49 POC Glucose (mg/dL) Random Glucose 178 H Calcium 8.7 Blood Type O POSITIVE Antibody Screen Negative BBK History Checked Patient has bt 01/27/17 01/27/17 01/27/17 05:06 06:34 11:12 WBC RBC Hgb Hct MCV MCH MCHC RDW Plt Count MPV Neut % (Auto) Lymph % (Auto) [place] % (Auto) Eos % (Auto) Baso % (Auto) Neut # Lymph # [place] # Eos # Baso # Neutrophils % (Manual) Lymphocytes % (Manual) Monocytes % (Manual) Platelet Estimate RBC Morphology PT INR APTT pCO2 33 L pO2 114 H HCO3 27.0 ABG pH 7.50 H ABG Total CO2 26.7 ABG O2 Saturation 99.5 H ABG O2 Content 15.0 ABG Base Excess 2.7 ABG Hemoglobin 10.9 L ABG Carboxyhemoglobin 1.5 POC ABG HHb (Measured) 0.5 ABG Methemoglobin 1.6 ABG O2 Capacity 15.1 L Rakan Test Yes A-a O2 Difference 59.0 Hgb O2 Saturation 96.4 Vent Mode Prvc/ac Mechanical Rate 18 FiO2 30.0 Tidal Volume 380 PEEP 5 Sodium Potassium Chloride Carbon Dioxide Anion Gap BUN Creatinine Est GFR ( Amer) Est GFR (Non-Af Amer) POC Glucose (mg/dL) 181 H 150 H Random Glucose Calcium Blood Type Antibody Screen BBK History Checked Critical Care Progress Note - Nutrition Nutrition: Nutrition Category Date Time Status NPO Diet [DIET] Diets 01/27/17 Breakfast Active
--- NOTE | 2017-01-27 10:27 | CP.PCM.PN ---
Subjective - Date & Time of Evaluation Date of Evaluation: 01/27/17 Time of Evaluation: 10:25 - Subjective Subjective: - Patient seen and examined at bedside. Responsive to verbal stimuli. Still remains intubated. Patient is scheduled for tracheostomy today. Objective - Vital Signs/Intake and Output Vital Signs (last 24 hours): Temp Pulse Resp BP Pulse Ox 96.8 F L 73 15 150/88 100 01/27/17 08:00 01/27/17 10:00 01/27/17 10:00 01/27/17 10:00 01/27/17 10:00 Intake and Output: 01/27/17 01/27/17 06:59 18:59 Intake Total 440 4 Output Total 1100 Balance -660 4 - Medications Medications: Current Medications Acetylcysteine (Mucomyst 10% 4ml) 2 ml IH RBID [facility] Last Admin: 01/27/17 07:21 Dose: 2 ml Albuterol/Ipratropium (Duoneb 3 Mg/0.5 Mg (3 Ml) Ud) 3 ml INH RQ4 [facility] Last Admin: 01/27/17 07:21 Dose: 3 ml Amlodipine Besylate (Norvasc) 5 mg PO DAILY [facility] Last Admin: 01/27/17 08:50 Dose: Not Given Digoxin (Lanoxin) 0.125 mg PO DAILY@1800 [facility] Last Admin: 01/26/17 17:00 Dose: 0.125 mg Famotidine (Pepcid) 20 mg PO Q12 [facility] Last Admin: 01/27/17 08:50 Dose: Not Given Furosemide (Lasix) 40 mg IVP DAILY [facility] Last Admin: 01/27/17 08:49 Dose: 40 mg Insulin Human Regular (Humulin R) 0 units SC ACCU-CHECK [facility] PRN Reason: Protocol Last Admin: 01/27/17 06:38 Dose: Not Given Labetalol HCl (Trandate) 100 mg PO Q8 [facility] Last Admin: 01/27/17 08:51 Dose: Not Given Lactobacillus Acidophilus (Bacid Acidophilus) 1 cap PO BID [facility] Last Admin: 01/27/17 08:49 Dose: Not Given Methylprednisolone (Solu-Medrol) 10 mg IVP Q12 [facility] Last Admin: 01/27/17 08:51 Dose: 10 mg Metoprolol Tartrate (Lopressor) 12.5 mg PO Q12 [facility] Last Admin: 01/27/17 09:50 Dose: 12.5 mg Rivaroxaban (Xarelto) 15 mg PO DAILY@1700 [facility] PRN Reason: Protocol Last Admin: 01/25/17 17:12 Dose: Not Given - Labs Labs: 01/27/17 05:00 01/27/17 05:00 PT 11.3 Seconds (9.8-13.1) 01/27/17 05:00 INR 1.0 (0.9-1.2) 01/27/17 05:00 APTT 27.6 Seconds (25.6-37.1) 01/27/17 05:00 - Constitutional Appears: No Acute Distress - Head Exam Head Exam: NORMAL INSPECTION - Eye Exam Eye Exam: Normal appearance - Neck Exam Additional comments: jvd - Respiratory Exam Respiratory Exam: Decreased Breath Sounds - Cardiovascular Exam Cardiovascular Exam: Irregular Rhythm, +S1, +S2 - GI/Abdominal Exam GI & Abdominal Exam: Soft. absent: Tenderness - Extremities Exam Extremities Exam: absent: Calf Tenderness - Neurological Exam Neurological Exam: Alert, Awake, CN II-XII Intact - Skin Skin Exam: Dry, Warm Assessment and Plan - Assessment and Plan (Free Text) Assessment: 1) Acute respiratory failure w/ hypercapnia -re intubated 01/16/17 -PRVC A/C rate 14, vol 380, PEEP 5, FIO2 30% - ABG: pCO2 33, pO2 114, HCO3 27, pH 7.50 - CXR 01/27/2017: focal infiltrates and small persistent pleural effusions remain unchanged - Tracheostomy scheduled today at 1:30 2) HCAP sputum culture 01/10/2017 grew Staph aureus susceptible to all antibiotics except penicillin - sputum culture 01/16/2017 shows normal oral errol - clindamycin 600 mg IV Q8h day 7 - ID consult appreciated 3) COPD exacerbation - retaining CO2 - methyprednisolone lowered to 10 mg IV to Q12h - Continue with Duoneb Q4 - mucomyst 2 mL BID - c/w chest PT Q4h s/p duoneb therapy 4) Type 2 DM - Newly diagnosed: 6.9 - on insulin sliding scale 5)Anemia - - repeat Hb 10.9 6) Chronic Atrial fibrilation -xarelto 15 mg PO held for procedure - Digoxin .125 mg - Lopresor 12.5 mg PO -cardiac monitoring - 7) Prophylaxis SCD for DVT prophylaxis Pepcid for GI Px - PT/OT ordered: On hold do to reintubation
[2017-01-27] MEDS: Clindamycin 600 MG in Sodium Chloride 0.9% 100 ML IVPB SCH ×2 (12:06→18:42)
[2017-01-27] MEDS ORDERED: Lidocaine 1% Inj (20ml) ONE (12:52)
[2017-01-27] MEDS ORDERED: Sodium Chloride 0.9% 0 ML IV ONE (12:52)
[2017-01-27] MEDS ORDERED: EPINEPHrine 1 mg/ml (1:1000) Inj ONE (12:52)
[2017-01-27] MEDS ORDERED: Lidocaine 2% Jelly (5 ml) TOP ONE (12:54)
[2017-01-27] MEDS ORDERED: Rocuronium 10 mg/ml (5 ml) ONE (13:20)
[2017-01-27] MEDS ORDERED: Lactated Ringer's 500 ML IV ONE (13:50)
[2017-01-27] MEDS ORDERED: Lidocaine 2% w Epi 1:100,000 Inj IJ ONE ×2 (13:50→14:20)
[2017-01-27] MEDS ORDERED: Lidocaine 2% GEL TOP ONE (14:15)
[2017-01-27] MEDS ORDERED: Neostigmine Methylsulfate 3mg/3ml Syringe IV ONE (14:37)
--- NOTE | 2017-01-27 14:56 | PCM.SURG1 ---
Surgeon's Initial Post Op Note - Surgeon's Notes Surgeon: Dr. Eagle Shell Machine Operator: Braydon Herrera, PGY4; Ban Dillard, PGY2 Pre-Operative Diagnosis: Respiratory failure requiring long-term mechanical ventilation Operative Findings: normal anatomy, appropriate tracheostomy tube placement confirmed by bronchoscopy Post-Operative Diagnosis: same Operation Performed: percutaneous thoracostomy tube insertion with bronchoscopy Specimen/Specimens Removed: none Estimated Blood Loss: EBL {In ML}: 2 Date of Surgery/Procedure: 01/27/17 Time of Surgery/Procedure: 14:00
--- NOTE | 2017-01-27 17:56 | RAD ---
PROCEDURE: CHEST RADIOGRAPH, 1 VIEW Technique: Single view portable semi erect @ 16:45. HISTORY: s/p tracheostomy COMPARISON: January 27, 2017. Time of the most recent examination: 07:15. FINDINGS: LUNGS: Improving pulmonary edema. PLEURA: No significant interval change compared to the prior examination(s). CARDIOVASCULAR: No significant interval change compared to the prior examination(s). OSSEOUS STRUCTURES: No significant abnormalities. VISUALIZED UPPER ABDOMEN: Normal. OTHER FINDINGS: No adverse findings following replacement of endotracheal tube with tracheostomy device now in satisfactory position IMPRESSION: Satisfactory position of recently placed tracheostomy device. Improving pulmonary edema
[2017-01-27] MEDS: Digoxin 125 mcg (0.125 mg) Tab PO SCH (18:43)
[2017-01-28] MEDS: Albuterol-Ipratrop 3 mg / 0.5 (3 ml) UD INH SCH ×6 (00:16→19:37)
[2017-01-28] MEDS: Clindamycin 600 MG in Sodium Chloride 0.9% 100 ML IVPB SCH ×3 (00:49→16:33)
[2017-01-28 05:21] LABS: CALCIUM 8.6 mg/dL (8.4-10.2)
[2017-01-28 05:25] LABS: ABG ALLEN TEST YES; ABG MECHANICAL RATE 14; ARTERIAL BLOOD GAS HCO3 27.6 mmol/L (21-28); ARTERIAL BLOOD GAS MODE A/C; ARTERIAL BLOOD GAS O2 CAPACITY 15.4 mL/dL (16-24); ARTERIAL BLOOD GAS O2 CONTENT 15.4 ML/dL (15-23); ARTERIAL BLOOD GAS PH 7.49 (7.35-7.45); ARTERIAL BLOOD GAS PO2 101 mm/Hg (80-100); ARTERIAL BLOOD HGB O2 SAT 96.1 % (95.0-98.0); ATERIAL BLOOD GAS PEEP 5; CARBOXYHEMOGLOBIN 2.2 % (0.5-1.5); HHB 0.3 % (0.0-5.0); METHEMOGLOBIN 1.5 % (0.0-3.0)
[2017-01-28 05:34] LABS: BASO % 0.1 % (0.0-2.0); EOS % 0.1 % (0.0-4.0); HEMATOCRIT 31.9 % (34.0-47.0); LYMPH # 0.3 K/uL (1.0-4.3); LYMPH % 4.2 % (20.0-40.0); MEAN CELL VOLUME 88.1 fl (81.0-99.0); MEAN CORPUSCULAR HEMOGLOBIN 29.3 pg (27.0-31.0); MEAN CORPUSCULAR HGB CONC 33.2 g/dL (33.0-37.0); MEAN PLATELET VOLUME 8.2 fl (7.2-11.7); MONO # 0.3 K/uL (0.0-0.8); NEUT # 6.7 K/uL (1.8-7.0); NEUT % 91.6 % (50.0-75.0); PLATELET COUNT 226 K/uL (130-400); RED CELL DISTRIBUTION WIDTH 21.4 % (11.5-14.5); WHITE BLOOD COUNT 7.4 K/uL (4.8-10.8)
[2017-01-28] MEDS: Insulin Regular 100 units/ml SC SCH ×4 (06:09→22:00)
[2017-01-28 06:42] LABS: NEUTROPHIL 93 % (42-75); TOTAL CELLS COUNTED 100
[2017-01-28] MEDS: Acetylcysteine 10% 4 ML IH SCH ×2 (07:31→19:37)
--- NOTE | 2017-01-28 07:32 | CP.PCM.PN ---
Subjective - Date & Time of Evaluation Date of Evaluation: 01/28/17 Time of Evaluation: 07:10 - Subjective Subjective: Patient seen and examined this AM. NAEO. Patient is awake and alert, able to nod her head in answer to questions. Denies pain. Objective - Vital Signs/Intake and Output Vital Signs (last 24 hours): Temp Pulse Resp BP Pulse Ox 98 F 93 H 20 154/78 H 100 01/28/17 04:00 01/28/17 06:00 01/28/17 06:00 01/28/17 06:00 01/28/17 06:00 Intake and Output: 01/28/17 01/28/17 06:59 18:59 Intake Total 880 Output Total 500 Balance 380 - Medications Medications: Current Medications Acetylcysteine (Mucomyst 10% 4ml) 2 ml IH RBID [facility] Last Admin: 01/27/17 20:06 Dose: 2 ml Albuterol/Ipratropium (Duoneb 3 Mg/0.5 Mg (3 Ml) Ud) 3 ml INH RQ4 [facility] Last Admin: 01/28/17 05:19 Dose: 3 ml Amlodipine Besylate (Norvasc) 5 mg PO DAILY [facility] Last Admin: 01/27/17 08:50 Dose: Not Given Digoxin (Lanoxin) 0.125 mg PO DAILY@1800 [facility] Last Admin: 01/27/17 18:43 Dose: Not Given Famotidine (Pepcid) 20 mg PO Q12 [facility] Last Admin: 01/27/17 21:40 Dose: 20 mg Furosemide (Lasix) 40 mg IVP DAILY [facility] Last Admin: 01/27/17 08:49 Dose: 40 mg Clindamycin Phosphate 600 mg/ (Sodium Chloride) 104 mls @ 104 mls/hr IVPB Q8 [facility] PRN Reason: Protocol Last Admin: 01/28/17 00:49 Dose: 104 mls/hr Insulin Human Regular (Humulin R) 0 units SC ACCU-CHECK [facility] PRN Reason: Protocol Last Admin: 01/28/17 06:09 Dose: 2 unit Labetalol HCl (Trandate) 100 mg PO Q8 [facility] Last Admin: 01/28/17 00:50 Dose: 100 mg Lactobacillus Acidophilus (Bacid Acidophilus) 1 cap PO BID [facility] Last Admin: 01/27/17 18:44 Dose: 1 cap Methylprednisolone (Solu-Medrol) 10 mg IVP Q12 [facility] Last Admin: 01/27/17 21:40 Dose: 10 mg Rivaroxaban (Xarelto) 15 mg PO DAILY@1700 [facility] PRN Reason: Protocol Last Admin: 01/25/17 17:12 Dose: Not Given - Labs Labs: 01/28/17 04:30 01/28/17 04:30 PT 11.3 Seconds (9.8-13.1) 01/27/17 05:00 INR 1.0 (0.9-1.2) 01/27/17 05:00 APTT 27.6 Seconds (25.6-37.1) 01/27/17 05:00 - Constitutional Appears: Non-toxic, No Acute Distress - Head Exam Head Exam: ATRAUMATIC, NORMOCEPHALIC - Eye Exam Eye Exam: Normal appearance. absent: Conjunctival injection, Scleral icterus - ENT Exam ENT Exam: Mucous Membranes Moist, Normal Oropharynx - Neck Exam Additional comments: tracheostomy in proper position with no active bleeding or drainage. - Respiratory Exam Respiratory Exam: NORMAL BREATHING PATTERN. absent: Accessory Muscle Use, Respiratory Distress - Cardiovascular Exam Cardiovascular Exam: RRR - GI/Abdominal Exam GI & Abdominal Exam: absent: Distended - Extremities Exam Extremities Exam: absent: Calf Tenderness, Pedal Edema, Tenderness - Neurological Exam Neurological Exam: Alert, Awake, Oriented x3 - Psychiatric Exam Psychiatric exam: Normal Affect, Normal Mood - Skin Skin Exam: Dry, Normal Color, Warm Assessment and Plan - Assessment and Plan (Free Text) Assessment: 71F with respiratory failure POD#1 s/p percutaneous tracheostomy with bronchoscopy Plan: -Continue to monitor -Remove dressing around tracheostomy tomorrow -Continue management per primary and ICU team -Will continue to follow Discussed with Dr. Fco Dillard, PGY2
--- NOTE | 2017-01-28 07:34 | CARD ---
APPROVED REPORT EKG Measurement Heart [id number] MI [id number] <Conclusion> Sinus rhythm with frequent premature ventricular complexes Left axis deviation Low voltage QRS Cannot rule out Anteroseptal infarct, age undetermined Abnormal ECG
[2017-01-28] MEDS: Lactobacillus Acidophilus 500 MU Cap PO SCH ×2 (08:25→16:31)
[2017-01-28] MEDS: MethylPREDNISolone 40 mg Vial IVP SCH (08:28)
--- NOTE | 2017-01-28 10:10 | CP.CCUPN ---
<Perry Angelo - Last Filed: 01/28/17 10:07> CCU Subjective - Physician Review Subjective (Free Text): 01/28/17 10:07 Patient this morning. No acute distress, denies pain, responsive to name call, opens eyes, and follows commands. Patient is s/p tracheostomy and tolerated procedure well w/o complications. Patient now on trach collar. Tube feeding resumed. Xarelto resumed. Critical Care Time Spent (in minutes): 35 CCU Objective - Vital Signs / Intake & Output Vital Signs (Last 4 hours): Vital Signs Temp Pulse Resp BP Pulse Ox 01/28/17 10:02 140/83 01/28/17 09:00 87 18 136/92 H 97 01/28/17 08:32 100 H 141/81 01/28/17 08:26 100 H 141/81 01/28/17 08:00 98.9 F 109 H 18 141/81 100 Intake and Output (Last 8hrs): Intake & Output 01/27/17 01/28/17 01/28/17 22:59 06:59 14:59 Intake Total 230 660 40 Output Total 300 500 Balance -70 160 40 Weight 109 lb Intake: IV 10 Intake, Piggyback 100 Tube Feeding 120 360 40 Free Water Flush 100 200 Output: Urine 300 500 Urethral (Atkins) 300 500 Other: # Bowel Movements 1 - Physical Exam Head: Positive for: Normocephalic Pupils: Positive for: PERRL Extroacular Muscles: Positive for: EOMI Conjunctiva: Positive for: Normal. Negative for: Icteric Mouth: Positive for: Moist Mucous Membranes Neck: Positive for: JVD. Negative for: Meningeal Signs Respiratory/Chest: Positive for: Decreased Breath Sounds, Rales, Other (trach in place and secure). Negative for: Accessory Muscle Use, Wheezes Cardiovascular: Positive for: Regular Rate and Rhythm, Other (multiple PVCs). Negative for: Murmurs, Rub Abdomen: Positive for: Normal Bowel Sounds, Other (PEG intact). Negative for: Tenderness, Distention Lower Extremity: Positive for: NORMAL PULSES. Negative for: CALF TENDERNESS, Cyanosis Skin: Positive for: Warm. Negative for: Rashes Psychiatric: Positive for: Alert - Medications Active Medications: Active Medications Generic Name Dose Route Start Last Admin Trade Name Freq PRN Reason Stop Dose Admin Acetylcysteine 2 ml 01/20/17 20:00 01/28/17 07:31 Mucomyst 10% 4ml IH 2 ml RBID [facility] Administration Albuterol/Ipratropium 3 ml 01/21/17 12:00 01/28/17 07:31 Duoneb 3 Mg/0.5 Mg (3 Ml) Ud INH 3 ml RQ4 [facility] Administration Amlodipine Besylate 5 mg 01/24/17 12:15 01/28/17 08:32 Norvasc PO 5 mg DAILY [facility] Administration Digoxin 0.125 mg 01/22/17 18:00 01/27/17 18:43 Lanoxin PO Not Given DAILY@1800 [facility] Famotidine 20 mg 01/16/17 21:00 01/28/17 08:25 Pepcid PO 20 mg Q12 [facility] Administration Furosemide 40 mg 01/24/17 16:30 01/28/17 10:02 Lasix IVP 40 mg DAILY [facility] Administration Clindamycin Phosphate 600 mg/ 104 mls @ 104 mls/hr 01/27/17 11:00 01/28/17 08 :27 Sodium Chloride IVPB 104 mls/hr Q8 [facility] Administration Protocol Insulin Human Regular 0 units 01/16/17 11:48 01/28/17 06:09 Humulin R SC 2 unit ACCU-CHECK [facility] Administration Protocol Labetalol HCl 100 mg 01/24/17 17:00 01/28/17 08:26 Trandate PO 100 mg Q8 [facility] Administration Lactobacillus Acidophilus 1 cap 01/26/17 09:00 01/28/17 08:25 Bacid Acidophilus PO 1 cap BID [facility] Administration Prednisone 10 mg 01/29/17 09:00 Prednisone Tab PO DAILY [facility] Rivaroxaban 15 mg 01/16/17 17:00 01/25/17 17:12 Xarelto PO Not Given DAILY@1700 [facility] Protocol - Patient Studies Lab Studies: Lab Studies 01/28/17 01/28/17 01/28/17 Range/Units 05:21 04:57 04:30 WBC (4.8-10.8) K/uL RBC (3.80-5.20) Mil/uL Hgb (12.0-16.0) g/dL Hct (34.0-47.0) % MCV (81.0-99.0) fl MCH (27.0-31.0) pg MCHC (33.0-37.0) g/dL RDW (11.5-14.5) % Plt Count (130-400) K/uL MPV (7.2-11.7) fl Neut % (Auto) (50.0-75.0) % Lymph % (Auto) (20.0-40.0) % [place] % (Auto) (0.0-10.0) % Eos % (Auto) (0.0-4.0) % Baso % (Auto) (0.0-2.0) % Neut # (1.8-7.0) K/uL Lymph # (1.0-4.3) K/uL [place] # (0.0-0.8) K/uL Eos # (0.0-0.7) K/uL Baso # (0.0-0.2) K/uL Neutrophils % (Manual) (42-75) % Lymphocytes % (Manual) (20-50) % Monocytes % (Manual) (0-10) % Platelet Estimate (NORMAL) RBC Morphology (NORMAL) pCO2 35 (35-45) mm/Hg pO2 101 H (80-100) mm/Hg HCO3 27.6 (21-28) mmol/L ABG pH 7.49 H (7.35-7.45) ABG Total CO2 27.8 (22-28) mmol/L ABG O2 Saturation 99.7 H (95-98) % ABG O2 Content 15.4 (15-23) ML/dL ABG Base Excess 3.4 H (-2.0-3.0) mmol/L ABG Hemoglobin 11.3 L (11.7-17.4) g/dL ABG Carboxyhemoglobin 2.2 H (0.5-1.5) % POC ABG HHb (Measured) 0.3 (0.0-5.0) % ABG Methemoglobin 1.5 (0.0-3.0) % ABG O2 Capacity 15.4 L (16-24) mL/dL Rakan Test Yes A-a O2 Difference 69.0 mm/Hg Hgb O2 Saturation 96.1 (95.0-98.0) % Vent Mode A/c Mechanical Rate 14 FiO2 30.0 % Tidal Volume 380 PEEP 5 Sodium 134 (132-148) mmol/l Potassium 4.0 (3.6-5.0) MMOL/L Chloride 102 (98-107) mmol/L Carbon Dioxide 25 (22-30) mmol/L Anion Gap 11 (10-20) BUN 29 H (7-17) mg/dl Creatinine 1.1 (0.7-1.2) mg/dL Est GFR ( Amer) 59 Est GFR (Non-Af Amer) 49 POC Glucose (mg/dL) 182 H (65-110) mg/dL Random Glucose 176 H (65-105) mg/dL Calcium 8.6 (8.4-10.2) mg/dL 01/28/17 01/27/17 01/27/17 Range/Units 04:30 21:37 16:58 WBC 7.4 (4.8-10.8) K/uL RBC 3.61 L (3.80-5.20) Mil/uL Hgb 10.6 L (12.0-16.0) g/dL Hct 31.9 L (34.0-47.0) % MCV 88.1 (81.0-99.0) fl MCH 29.3 (27.0-31.0) pg MCHC 33.2 (33.0-37.0) g/dL RDW 21.4 H (11.5-14.5) % Plt Count 226 (130-400) K/uL MPV 8.2 (7.2-11.7) fl Neut % (Auto) 91.6 H (50.0-75.0) % Lymph % (Auto) 4.2 L (20.0-40.0) % [place] % (Auto) 4.0 (0.0-10.0) % Eos % (Auto) 0.1 (0.0-4.0) % Baso % (Auto) 0.1 (0.0-2.0) % Neut # 6.7 (1.8-7.0) K/uL Lymph # 0.3 L (1.0-4.3) K/uL [place] # 0.3 (0.0-0.8) K/uL Eos # 0.0 (0.0-0.7) K/uL Baso # 0.0 (0.0-0.2) K/uL Neutrophils % (Manual) 93 H (42-75) % Lymphocytes % (Manual) 5 L (20-50) % Monocytes % (Manual) 2 (0-10) % Platelet Estimate Normal (NORMAL) RBC Morphology Normal (NORMAL) pCO2 (35-45) mm/Hg pO2 (80-100) mm/Hg HCO3 (21-28) mmol/L ABG pH (7.35-7.45) ABG Total CO2 (22-28) mmol/L ABG O2 Saturation (95-98) % ABG O2 Content (15-23) ML/dL ABG Base Excess (-2.0-3.0) mmol/L ABG Hemoglobin (11.7-17.4) g/dL ABG Carboxyhemoglobin (0.5-1.5) % POC ABG HHb (Measured) (0.0-5.0) % ABG Methemoglobin (0.0-3.0) % ABG O2 Capacity (16-24) mL/dL Rakan Test A-a O2 Difference mm/Hg Hgb O2 Saturation (95.0-98.0) % Vent Mode Mechanical Rate FiO2 % Tidal Volume PEEP Sodium (132-148) mmol/l Potassium (3.6-5.0) MMOL/L Chloride (98-107) mmol/L Carbon Dioxide (22-30) mmol/L Anion Gap (10-20) BUN (7-17) mg/dl Creatinine (0.7-1.2) mg/dL Est GFR ( Amer) Est GFR (Non-Af Amer) POC Glucose (mg/dL) 136 H 145 H (65-110) mg/dL Random Glucose (65-105) mg/dL Calcium (8.4-10.2) mg/dL 01/27/17 Range/Units 11:12 WBC (4.8-10.8) K/uL RBC (3.80-5.20) Mil/uL Hgb (12.0-16.0) g/dL Hct (34.0-47.0) % MCV (81.0-99.0) fl MCH (27.0-31.0) pg MCHC (33.0-37.0) g/dL RDW (11.5-14.5) % Plt Count (130-400) K/uL MPV (7.2-11.7) fl Neut % (Auto) (50.0-75.0) % Lymph % (Auto) (20.0-40.0) % [place] % (Auto) (0.0-10.0) % Eos % (Auto) (0.0-4.0) % Baso % (Auto) (0.0-2.0) % Neut # (1.8-7.0) K/uL Lymph # (1.0-4.3) K/uL [place] # (0.0-0.8) K/uL Eos # (0.0-0.7) K/uL Baso # (0.0-0.2) K/uL Neutrophils % (Manual) (42-75) % Lymphocytes % (Manual) (20-50) % Monocytes % (Manual) (0-10) % Platelet Estimate (NORMAL) RBC Morphology (NORMAL) pCO2 (35-45) mm/Hg pO2 (80-100) mm/Hg HCO3 (21-28) mmol/L ABG pH (7.35-7.45) ABG Total CO2 (22-28) mmol/L ABG O2 Saturation (95-98) % ABG O2 Content (15-23) ML/dL ABG Base Excess (-2.0-3.0) mmol/L ABG Hemoglobin (11.7-17.4) g/dL ABG Carboxyhemoglobin (0.5-1.5) % POC ABG HHb (Measured) (0.0-5.0) % ABG Methemoglobin (0.0-3.0) % ABG O2 Capacity (16-24) mL/dL Rakan Test A-a O2 Difference mm/Hg Hgb O2 Saturation (95.0-98.0) % Vent Mode Mechanical Rate FiO2 % Tidal Volume PEEP Sodium (132-148) mmol/l Potassium (3.6-5.0) MMOL/L Chloride (98-107) mmol/L Carbon Dioxide (22-30) mmol/L Anion Gap (10-20) BUN (7-17) mg/dl Creatinine (0.7-1.2) mg/dL Est GFR ( Amer) Est GFR (Non-Af Amer) POC Glucose (mg/dL) 150 H (65-110) mg/dL Random Glucose (65-105) mg/dL Calcium (8.4-10.2) mg/dL Laboratory Results - last 24 hr 01/27/17 01/27/17 01/27/17 11:12 16:58 21:37 WBC RBC Hgb Hct MCV MCH MCHC RDW Plt Count MPV Neut % (Auto) Lymph % (Auto) [place] % (Auto) Eos % (Auto) Baso % (Auto) Neut # Lymph # [place] # Eos # Baso # Neutrophils % (Manual) Lymphocytes % (Manual) Monocytes % (Manual) Platelet Estimate RBC Morphology pCO2 pO2 HCO3 ABG pH ABG Total CO2 ABG O2 Saturation ABG O2 Content ABG Base Excess ABG Hemoglobin ABG Carboxyhemoglobin POC ABG HHb (Measured) ABG Methemoglobin ABG O2 Capacity Rakan Test A-a O2 Difference Hgb O2 Saturation Vent Mode Mechanical Rate FiO2 Tidal Volume PEEP Sodium Potassium Chloride Carbon Dioxide Anion Gap BUN Creatinine Est GFR ( Amer) Est GFR (Non-Af Amer) POC Glucose (mg/dL) 150 H 145 H 136 H Random Glucose Calcium 01/28/17 01/28/17 01/28/17 04:30 04:30 04:57 WBC 7.4 RBC 3.61 L Hgb 10.6 L Hct 31.9 L MCV 88.1 MCH 29.3 MCHC 33.2 RDW 21.4 H Plt Count 226 MPV 8.2 Neut % (Auto) 91.6 H Lymph % (Auto) 4.2 L [place] % (Auto) 4.0 Eos % (Auto) 0.1 Baso % (Auto) 0.1 Neut # 6.7 Lymph # 0.3 L [place] # 0.3 Eos # 0.0 Baso # 0.0 Neutrophils % (Manual) 93 H Lymphocytes % (Manual) 5 L Monocytes % (Manual) 2 Platelet Estimate Normal RBC Morphology Normal pCO2 pO2 HCO3 ABG pH ABG Total CO2 ABG O2 Saturation ABG O2 Content ABG Base Excess ABG Hemoglobin ABG Carboxyhemoglobin POC ABG HHb (Measured) ABG Methemoglobin ABG O2 Capacity [place]akan Test A-a O2 Difference Hgb O2 Saturation Vent Mode Mechanical Rate FiO2 Tidal Volume PEEP Sodium 134 Potassium 4.0 Chloride 102 Carbon Dioxide 25 Anion Gap 11 BUN 29 H Creatinine 1.1 Est GFR ( Amer) 59 Est GFR (Non-Af Amer) 49 POC Glucose (mg/dL) 182 H Random Glucose 176 H Calcium 8.6 01/28/17 05:21 WBC RBC Hgb Hct MCV MCH MCHC RDW Plt Count MPV Neut % (Auto) Lymph % (Auto) [place] % (Auto) Eos % (Auto) Baso % (Auto) Neut # Lymph # [place] # Eos # Baso # Neutrophils % (Manual) Lymphocytes % (Manual) Monocytes % (Manual) Platelet Estimate RBC Morphology pCO2 35 pO2 101 H HCO3 27.6 ABG pH 7.49 H ABG Total CO2 27.8 ABG O2 Saturation 99.7 H ABG O2 Content 15.4 ABG Base Excess 3.4 H ABG Hemoglobin 11.3 L ABG Carboxyhemoglobin 2.2 H POC ABG HHb (Measured) 0.3 ABG Methemoglobin 1.5 ABG O2 Capacity 15.4 L Rakan Test Yes A-a O2 Difference 69.0 Hgb O2 Saturation 96.1 Vent Mode A/c Mechanical Rate 14 FiO2 30.0 Tidal Volume 380 PEEP 5 Sodium Potassium Chloride Carbon Dioxide Anion Gap BUN Creatinine Est GFR ( Amer) Est GFR (Non-Af Amer) POC Glucose (mg/dL) Random Glucose Calcium Fingerstick Blood Sugar Results: 82 Review of Systems - Review of Systems Systems not reviewed;Unavailable: Other (s/p tracheostomy) - Constitutional Constitutional: absent: Fever, Chills, Sweats - Cardiovascular Cardiovascular: absent: Chest Pain - Gastrointestinal Gastrointestinal: absent: Abdominal Pain - Genitourinary Genitourinary: absent: Dysuria - Integumentary Integumentary: absent: Pruritus - Neurological Neurological: absent: Dizziness, Headaches Critical Care Progress Note - Nutrition Nutrition: Nutrition Category Date Time Status NPO Diet [DIET] Diets 01/27/17 Breakfast Active Assessment/Plan - Assessment and Plan (Free Text) Assessment: 71 y/o woman w/ pmh of PEG (placed 2 days prior to admission), bed bound, dementia, CHF EF 30%, AFib, HTN, and HLD in ICU for respiratory failure. Plan: Acute respiratory failure with hypercapnia - s/p tracheostomy 01/27/2017 - ABG: pCO2 35, pO2 101, HCO3 27.6, pH 7.49 - CXR 01/27/2017 s/p trach: improving pulmonary edema, trach placed properly - patient currently on trach collar, 40% O2 - pulmonary support bed - surgery recommendations appreciated - Pulmonary consult, Dr. Mendoza, recommendations appreciated COPD exacerbation - patient has history of emphysema - patient retaining CO2 - DC'ed methyprednisolone lowered 10 mg IV Q12h - tomorrow start prednisone 10 mg PO daily - c/w mucomyst 2 mL BID - c/w duonebs to Q4h - c/w chest PT Q4h s/p duoneb therapy I & O - negative balance - on lasix 40 mg IV daily Diet - reports appetite - PEG placed due to poor nutrition - tube feeds 40mL/hr - c/w glucerna 1.2 when feeds resume - on sliding scale insulin - speech and swallow evaluation ordered Type 2 diabetes - newly diagnosed, HbA1c 6.9% - on insulin sliding scale HCAP (healthcare-associated pneumonia) - sputum culture 01/10/2017 grew Staph aureus susceptible to all antibiotics except penicillin - sputum culture 01/16/2017 shows normal oral errol - DC'ed IV Piperacillin Sod/Tazobactam 2.25 g Q6h on day 15 - clindamycin 600 mg IV Q8h day 8 - c/w tylenol for fever prn - ID consult, Dr. Mosqueda, recommendations appreciated HTN - elevated BPs - c/w norvasc 5 mg PO daily - c/w labetalol 100 mg PO Q8 - continue to monitor Cardiac arrest - ACLS initiated in skilled nursing, ROSC achieved prior to EMS arrival, intubated for agonal breathing - improved mental status, Patient awake, oriented, follow commands. - K+ normalized Anemia - anemic since admission, Hb 6.9 01/12/2017 - s/p 1 PRBC 01/12/2017 - s/p 2 PRBC 01/22/2017 - No evidence of active bleeding - Hb today 10.6 - minimal to no blood loss from procedure Atrial fibrillation - chronic, home meds restarted - resume xarelto 15 mg PO daily - digoxin 0.125 mg PO daily - DC'ed lopressor 12.5 mg PO Q12h - cardiac monitoring Prophylactic Measures - pepcid 20 mg IVP Q12 - lactobacillus 1 capsule PO BID - SCDs - PT eval/treat reordered for passive ROM <Troy Reyes - Last Filed: 01/28/17 12:22> Assessment/Plan - Assessment and Plan (Free Text) Plan: Attestation: Patient seen and examined at the bedside with Resident Dr. Barb Angelo; and I agree with his outline of plans and management documented below as discussed on AM rounds reflecting my review of all applicable clinical data, and participation in the care of the patient throughout the day in ICU; today, January 28, 2017. Measures to be performed today include: 1. Trach collar trials on 40% oxygen. Post-hypercapniec metab alkalosis evident on ABG, repeat ABG in Trach collar pending. 2. Resume Xarelto for stroke prophylaxis with intermittent and recurrent A fib , VR controlled, no further bradycardic episodes off BBs. 3. Discussion with family regarding LTAC placement as she is not amenable to previous NH placement return.
--- NOTE | 2017-01-28 11:36 | CP.PCM.PN ---
Subjective - Date & Time of Evaluation Date of Evaluation: 01/28/17 Time of Evaluation: 11:32 - Subjective Subjective: - Patient is seen and examined at bedside with Dr. Templeton. Patient is NAD, responds to her name and opens eyes Patient is s/p tracheostomy which was done yesterday. She appears more comfortable. Patient is attempting to to talk but unable to vocalize. Tube feeding has been resumed. xarelto is resumed. Objective - Vital Signs/Intake and Output Vital Signs (last 24 hours): Temp Pulse Resp BP Pulse Ox 98.9 F 87 18 140/83 97 01/28/17 08:00 01/28/17 09:00 01/28/17 09:00 01/28/17 10:02 01/28/17 09:00 Intake and Output: 01/28/17 01/28/17 06:59 18:59 Intake Total 880 40 Output Total 500 Balance 380 40 - Medications Medications: Current Medications Acetylcysteine (Mucomyst 10% 4ml) 2 ml IH RBID [facility] Last Admin: 01/28/17 07:31 Dose: 2 ml Albuterol/Ipratropium (Duoneb 3 Mg/0.5 Mg (3 Ml) Ud) 3 ml INH RQ4 [facility] Last Admin: 01/28/17 11:25 Dose: 3 ml Amlodipine Besylate (Norvasc) 5 mg PO DAILY [facility] Last Admin: 01/28/17 08:32 Dose: 5 mg Digoxin (Lanoxin) 0.125 mg PO DAILY@1800 [facility] Last Admin: 01/27/17 18:43 Dose: Not Given Famotidine (Pepcid) 20 mg PO Q12 [facility] Last Admin: 01/28/17 08:25 Dose: 20 mg Furosemide (Lasix) 40 mg IVP DAILY [facility] Last Admin: 01/28/17 10:02 Dose: 40 mg Clindamycin Phosphate 600 mg/ (Sodium Chloride) 104 mls @ 104 mls/hr IVPB Q8 [facility] PRN Reason: Protocol Last Admin: 01/28/17 08:27 Dose: 104 mls/hr Insulin Human Regular (Humulin R) 0 units SC ACCU-CHECK [facility] PRN Reason: Protocol Last Admin: 01/28/17 11:16 Dose: 2 unit Labetalol HCl (Trandate) 100 mg PO Q8 [facility] Last Admin: 01/28/17 08:26 Dose: 100 mg Lactobacillus Acidophilus (Bacid Acidophilus) 1 cap PO BID [facility] Last Admin: 01/28/17 08:25 Dose: 1 cap Prednisone (Prednisone Tab) 10 mg PO DAILY [facility] Rivaroxaban (Xarelto) 15 mg PO DAILY@1700 [facility] PRN Reason: Protocol Last Admin: 01/25/17 17:12 Dose: Not Given - Labs Labs: 01/28/17 04:30 01/28/17 04:30 PT 11.3 Seconds (9.8-13.1) 01/27/17 05:00 INR 1.0 (0.9-1.2) 01/27/17 05:00 APTT 27.6 Seconds (25.6-37.1) 01/27/17 05:00 - Constitutional Appears: No Acute Distress - Head Exam Head Exam: NORMAL INSPECTION - Neck Exam Additional comments: Trach collar in place - Cardiovascular Exam Cardiovascular Exam: Irregular Rhythm, +S1, +S2 - GI/Abdominal Exam GI & Abdominal Exam: Soft, Normal Bowel Sounds. absent: Tenderness - Neurological Exam Neurological Exam: Alert, Awake, CN II-XII Intact - Skin Skin Exam: Normal Color, Warm Assessment and Plan - Assessment and Plan (Free Text) Assessment: 1) Acute respiratory failure w/ hypercapnia -s/p tracheostomy on 01/27/2017 - ABG: pCO2 35, pO2 101, HCO3 27.6, pH 7.49 - CXR 01/27/2017 s/p trach: improving pulmonary edema, trach placed properly 2) HCAP sputum culture 01/10/2017 grew Staph aureus susceptible to all antibiotics except penicillin - sputum culture 01/16/2017 shows normal oral errol - clindamycin 600 mg IV Q8h day 8 - ID consult appreciated 3) COPD exacerbation - retaining CO2 - D/C methyprednisolone - Continue with Duoneb Q4 - Start prednislone 10 mg tomorrow - mucomyst 2 mL BID - c/w chest PT Q4h s/p duoneb therapy 4) Type 2 DM - Newly diagnosed: 6.9 - on insulin sliding scale 5)Anemia - - repeat Hb 10.6 post trach, minimal blood loss from procedure 6) Chronic Atrial fibrilation -xarelto 15 mg PO - Digoxin .125 mg - Lopresor 12.5 mg PO -cardiac monitoring - 7) Prophylaxis SCD for DVT prophylaxis Pepcid for GI Px
[2017-01-28 16:08] LABS: ABG ALLEN TEST YES; ARTERIAL BLOOD GAS HCO3 26.5 mmol/L (21-28); ARTERIAL BLOOD GAS O2 CAPACITY 15.3 mL/dL (16-24); ARTERIAL BLOOD GAS O2 CONTENT 15.2 ML/dL (15-23); ARTERIAL BLOOD GAS PH 7.34 (7.35-7.45); ARTERIAL BLOOD GAS PO2 108 mm/Hg (80-100); ARTERIAL BLOOD HGB O2 SAT 95.7 % (95.0-98.0); HHB 0.7 % (0.0-5.0); METHEMOGLOBIN 1.6 % (0.0-3.0)
[2017-01-28] MEDS: Digoxin 125 mcg (0.125 mg) Tab PO SCH (17:23)
[2017-01-29] MEDS: Clindamycin 600 MG in Sodium Chloride 0.9% 100 ML IVPB SCH ×3 (00:16→16:14)
[2017-01-29] MEDS: Albuterol-Ipratrop 3 mg / 0.5 (3 ml) UD INH SCH ×6 (00:33→19:59)
--- NOTE | 2017-01-29 04:07 | OP ---
PROCEDURE DATE: 01/27/2017 SURGEON: Madelyn Eagle MD. ASSISTANTS: Dr. Dillard and Dr. Herrera. TYPE OF ANESTHESIA: General. ANESTHESIA ADMINISTERED BY: Dr. Tucker. PREOPERATIVE DIAGNOSIS: Prolonged ventilation. POSTOPERATIVE DIAGNOSIS: Prolonged ventilation. PROCEDURE: Percutaneous tracheostomy with flexible bronchoscopy. DESCRIPTION OF OPERATION: With the patient in the supine position, the neck was hyperextended with a shoulder roll. The neck was prepped and draped in the usual sterile manner. 1% lidocaine with epinephrine was infiltrated 2 fingerbreadths above the sternal notch and a small longitudinal incision was made. The trachea was palpated and the site between the first and second tracheal rings was identified. The introducer needle was passed into the trachea and visualized with a fiberoptic bronchoscope. The endotracheal tube was retracted to the level of the cricoid, allowing the guidewire to be passed under direct vision, followed by dilators and then a #8 tracheostomy tube. The endotracheal tube was removed completely. Ventilation was checked via the tracheostomy with adequate oxygenation and end-tidal CO2 and the tube was sutured in position with silk sutures and a tracheostomy collar. The patient tolerated the procedure well and transferred back to the Intensive Care Unit in stable condition. Estimated blood loss for the procedure was 2 mL. Madelyn Eagle MD
[2017-01-29 05:02] LABS: HEMATOCRIT 32.4 % (34.0-47.0); MEAN CELL VOLUME 90.1 fl (81.0-99.0); MEAN CORPUSCULAR HEMOGLOBIN 29.8 pg (27.0-31.0); MEAN CORPUSCULAR HGB CONC 33.1 g/dL (33.0-37.0); RED CELL DISTRIBUTION WIDTH 22.2 % (11.5-14.5); WHITE BLOOD COUNT 7.4 K/uL (4.8-10.8)
[2017-01-29 05:12] LABS: ALB/GLOB RATIO 0.8 (1.0-2.1); ALKALINE PHOSPHATASE 86 U/L (38-126); ALT/SGPT 33 U/L (9-52); AST/SGOT 23 U/L (14-36); BILIRUBIN,TOTAL 0.2 mg/dl (0.2-1.3); BLOOD UREA NITROGEN 28 mg/dl (7-17); CALCIUM 8.8 mg/dL (8.4-10.2); CARBON DIOXIDE 30 mmol/L (22-30); CHLORIDE 101 mmol/L (98-107); GFR AFRICAN-AMERICAN > 60; GLUCOSE,RANDOM 100 mg/dL (65-105); POTASSIUM 4.3 MMOL/L (3.6-5.0); SODIUM 138 mmol/l (132-148); TOTAL PROTEIN 5.9 G/DL (6.3-8.2)
[2017-01-29 05:22] LABS: ABG ALLEN TEST YES; ARTERIAL BLOOD GAS HCO3 27.5 mmol/L (21-28); ARTERIAL BLOOD GAS MODE TRACH COLLAR; ARTERIAL BLOOD GAS O2 CAPACITY 14.7 mL/dL (16-24); ARTERIAL BLOOD GAS O2 CONTENT 14.4 ML/dL (15-23); ARTERIAL BLOOD GAS PH 7.34 (7.35-7.45); ARTERIAL BLOOD GAS PO2 73 mm/Hg (80-100); ARTERIAL BLOOD HGB O2 SAT 94.3 % (95.0-98.0); CARBOXYHEMOGLOBIN 2.1 % (0.5-1.5); HHB 2.1 % (0.0-5.0); METHEMOGLOBIN 1.5 % (0.0-3.0)
[2017-01-29] MEDS ORDERED: Sodium Chloride 3% for Inhalation 4 ML VIAL.NEB IH PRN (07:00)
[2017-01-29] MEDS: Insulin Regular 100 units/ml SC SCH ×4 (07:07→23:00)
[2017-01-29] MEDS: Acetylcysteine 10% 4 ML IH SCH ×2 (07:44→19:59)
--- NOTE | 2017-01-29 09:10 | RAD ---
HISTORY: s/p tracheostomy COMPARISON: 01/28/2017 FINDINGS: LUNGS: Extensive right basilar/perihilar and left perihilar opacity. Pneumonia versus pulmonary edema. PLEURA: Small bilateral pleural effusion. No pneumothorax. CARDIOVASCULAR: Normal heart size. Tracheostomy. Mild congestive change. OSSEOUS STRUCTURES: No significant abnormalities. VISUALIZED UPPER ABDOMEN: Normal. OTHER FINDINGS: None. IMPRESSION: Bilateral perihilar and right basilar opacity, slightly worsened compared to prior examination. Small bilateral pleural effusion. Mild congestive change.
--- NOTE | 2017-01-29 09:12 | RAD ---
HISTORY: with trach COMPARISON: 01/27/2017 FINDINGS: LUNGS: Mild left perihilar opacity. Right perihilar/ basilar opacity. PLEURA: New small right pleural effusion. No evidence of left pleural effusion. No pneumothorax. CARDIOVASCULAR: Normal heart size. Tracheostomy tube. No congestive change. OSSEOUS STRUCTURES: No significant abnormalities. VISUALIZED UPPER ABDOMEN: Normal. OTHER FINDINGS: None. IMPRESSION: Right basilar and left perihilar opacity with small right pleural effusion.
--- NOTE | 2017-01-29 10:10 | CP.CCUPN ---
<Perry Angelo - Last Filed: 01/29/17 10:07> CCU Subjective - Physician Review Subjective (Free Text): 01/29/17 10:07 Patient this morning. No acute distress, denies pain, responsive to name call, opens eyes, and follows commands. There are no acute events overnight. Patient is s/p tracheostomy and tolerated procedure well w/o complications. Patient now on trach collar. Tolerating tube feeding. Xarelto resumed. Critical Care Time Spent (in minutes): 35 CCU Objective - Vital Signs / Intake & Output Vital Signs (Last 4 hours): Vital Signs Temp Pulse Resp BP Pulse Ox 01/29/17 08:00 97.9 F 78 23 135/79 92 L Intake and Output (Last 8hrs): Intake & Output 01/28/17 01/29/17 01/29/17 22:59 06:59 14:59 Intake Total 594 632 Output Total 1200 950 Balance -606 -318 Weight 100 lb 3.2 oz Intake: IV 14 12 Intake, Piggyback 100 100 Tube Feeding 280 320 Free Water Flush 200 200 Output: Urine 1200 950 Urethral (Atkins) 1200 950 Other: # Bowel Movements 2 1 - Physical Exam Head: Positive for: Normocephalic Pupils: Positive for: PERRL Extroacular Muscles: Positive for: EOMI Conjunctiva: Positive for: Normal. Negative for: Icteric Mouth: Positive for: Moist Mucous Membranes Neck: Positive for: JVD. Negative for: Meningeal Signs Respiratory/Chest: Positive for: Decreased Breath Sounds, Rales, Other (trach in place and secure). Negative for: Accessory Muscle Use, Wheezes Cardiovascular: Positive for: Regular Rate and Rhythm, Other (multiple PVCs). Negative for: Murmurs, Rub Abdomen: Positive for: Normal Bowel Sounds, Other (PEG intact). Negative for: Tenderness, Distention Lower Extremity: Positive for: NORMAL PULSES. Negative for: CALF TENDERNESS, Cyanosis Neurological: Positive for: Other (on ventilator) Skin: Positive for: Warm. Negative for: Rashes Psychiatric: Positive for: Alert - Medications Active Medications: Active Medications Generic Name Dose Route Start Last Admin Trade Name Freq PRN Reason Stop Dose Admin Acetylcysteine 2 ml 01/20/17 20:00 01/29/17 07:44 Mucomyst 10% 4ml IH 2 ml RBID [facility] Administration Albuterol/Ipratropium 3 ml 01/21/17 12:00 01/29/17 07:44 Duoneb 3 Mg/0.5 Mg (3 Ml) Ud INH 3 ml RQ4 [facility] Administration Amlodipine Besylate 5 mg 01/24/17 12:15 01/28/17 08:32 Norvasc PO 5 mg DAILY [facility] Administration Digoxin 0.125 mg 01/22/17 18:00 01/28/17 17:23 Lanoxin PO 0.125 mg DAILY@1800 [facility] Administration Famotidine 20 mg 01/16/17 21:00 01/28/17 21:05 Pepcid PO 20 mg Q12 [facility] Administration Furosemide 40 mg 01/24/17 16:30 01/28/17 10:02 Lasix IVP 40 mg DAILY [facility] Administration Clindamycin Phosphate 600 mg/ 104 mls @ 104 mls/hr 01/27/17 11:00 01/29/17 00 :16 Sodium Chloride IVPB 104 mls/hr Q8 [facility] Administration Protocol Insulin Human Regular 0 units 01/16/17 11:48 01/29/17 07:07 Humulin R SC Not Given ACCU-CHECK [facility] Protocol Labetalol HCl 100 mg 01/24/17 17:00 01/29/17 00:18 Trandate PO Not Given Q8 [facility] Lactobacillus Acidophilus 1 cap 01/26/17 09:00 01/28/17 16:31 Bacid Acidophilus PO 1 cap BID [facility] Administration Prednisone 10 mg 01/29/17 09:00 Prednisone Tab PO DAILY [facility] Rivaroxaban 15 mg 01/16/17 17:00 01/28/17 16:31 Xarelto PO 15 mg DAILY@1700 [facility] Administration Protocol - Patient Studies Lab Studies: Lab Studies 01/29/17 01/29/17 01/29/17 Range/Units 05:21 05:19 04:20 WBC (4.8-10.8) K/uL RBC (3.80-5.20) Mil/uL Hgb (12.0-16.0) g/dL Hct (34.0-47.0) % MCV (81.0-99.0) fl MCH (27.0-31.0) pg MCHC (33.0-37.0) g/dL RDW (11.5-14.5) % Plt Count (130-400) K/uL pCO2 56 H (35-45) mm/Hg pO2 73 L (80-100) mm/Hg HCO3 27.5 (21-28) mmol/L ABG pH 7.34 L (7.35-7.45) ABG Total CO2 31.9 H (22-28) mmol/L ABG O2 Saturation 97.8 (95-98) % ABG O2 Content 14.4 L (15-23) ML/dL ABG Base Excess 3.4 H (-2.0-3.0) mmol/L ABG Hemoglobin 10.8 L (11.7-17.4) g/dL ABG Carboxyhemoglobin 2.1 H (0.5-1.5) % POC ABG HHb (Measured) 2.1 (0.0-5.0) % ABG Methemoglobin 1.5 (0.0-3.0) % ABG O2 Capacity 14.7 L (16-24) mL/dL Rakan Test Yes A-a O2 Difference 142.0 mm/Hg Hgb O2 Saturation 94.3 L (95.0-98.0) % Vent Mode Trach collar FiO2 40.0 % Sodium 138 (132-148) mmol/l Potassium 4.3 (3.6-5.0) MMOL/L Chloride 101 (98-107) mmol/L Carbon Dioxide 30 (22-30) mmol/L Anion Gap 11 (10-20) BUN 28 H (7-17) mg/dl Creatinine 1.0 (0.7-1.2) mg/dL Est GFR ( Amer) > 60 Est GFR (Non-Af Amer) 54 POC Glucose (mg/dL) 102 (65-110) mg/dL Random Glucose 100 (65-105) mg/dL Calcium 8.8 (8.4-10.2) mg/dL Total Bilirubin 0.2 (0.2-1.3) mg/dl AST 23 (14-36) U/L ALT 33 (9-52) U/L Alkaline Phosphatase 86 (38-126) U/L Total Protein 5.9 L (6.3-8.2) G/DL Albumin 2.7 L (3.5-5.0) g/dL Globulin 3.2 (2.2-3.9) gm/dL Albumin/Globulin Ratio 0.8 L (1.0-2.1) 01/29/17 01/28/17 01/28/17 Range/Units 04:20 21:46 16:29 WBC 7.4 (4.8-10.8) K/uL RBC 3.60 L (3.80-5.20) Mil/uL Hgb 10.7 L (12.0-16.0) g/dL Hct 32.4 L (34.0-47.0) % MCV 90.1 D (81.0-99.0) fl MCH 29.8 (27.0-31.0) pg MCHC 33.1 (33.0-37.0) g/dL RDW 22.2 H (11.5-14.5) % Plt Count 200 (130-400) K/uL pCO2 (35-45) mm/Hg pO2 (80-100) mm/Hg HCO3 (21-28) mmol/L ABG pH (7.35-7.45) ABG Total CO2 (22-28) mmol/L ABG O2 Saturation (95-98) % ABG O2 Content (15-23) ML/dL ABG Base Excess (-2.0-3.0) mmol/L ABG Hemoglobin (11.7-17.4) g/dL ABG Carboxyhemoglobin (0.5-1.5) % POC ABG HHb (Measured) (0.0-5.0) % ABG Methemoglobin (0.0-3.0) % ABG O2 Capacity (16-24) mL/dL Rakan Test A-a O2 Difference mm/Hg Hgb O2 Saturation (95.0-98.0) % Vent Mode FiO2 % Sodium (132-148) mmol/l Potassium (3.6-5.0) MMOL/L Chloride (98-107) mmol/L Carbon Dioxide (22-30) mmol/L Anion Gap (10-20) BUN (7-17) mg/dl Creatinine (0.7-1.2) mg/dL Est GFR ( Amer) Est GFR (Non-Af Amer) POC Glucose (mg/dL) 151 H 96 (65-110) mg/dL Random Glucose (65-105) mg/dL Calcium (8.4-10.2) mg/dL Total Bilirubin (0.2-1.3) mg/dl AST (14-36) U/L ALT (9-52) U/L Alkaline Phosphatase (38-126) U/L Total Protein (6.3-8.2) G/DL Albumin (3.5-5.0) g/dL Globulin (2.2-3.9) gm/dL Albumin/Globulin Ratio (1.0-2.1) 01/28/17 01/28/17 Range/Units 16:04 11:09 WBC (4.8-10.8) K/uL RBC (3.80-5.20) Mil/uL Hgb (12.0-16.0) g/dL Hct (34.0-47.0) % MCV (81.0-99.0) fl MCH (27.0-31.0) pg MCHC (33.0-37.0) g/dL RDW (11.5-14.5) % Plt Count (130-400) K/uL pCO2 53 H (35-45) mm/Hg pO2 108 H (80-100) mm/Hg HCO3 26.5 (21-28) mmol/L ABG pH 7.34 L (7.35-7.45) ABG Total CO2 30.2 H (22-28) mmol/L ABG O2 Saturation 99.3 H (95-98) % ABG O2 Content 15.2 (15-23) ML/dL ABG Base Excess 2.0 (-2.0-3.0) mmol/L ABG Hemoglobin 11.2 L (11.7-17.4) g/dL ABG Carboxyhemoglobin 2.0 H (0.5-1.5) % POC ABG HHb (Measured) 0.7 (0.0-5.0) % ABG Methemoglobin 1.6 (0.0-3.0) % ABG O2 Capacity 15.3 L (16-24) mL/dL Rakan Test Yes A-a O2 Difference 111.0 mm/Hg Hgb O2 Saturation 95.7 (95.0-98.0) % Vent Mode FiO2 40.0 % Sodium (132-148) mmol/l Potassium (3.6-5.0) MMOL/L Chloride (98-107) mmol/L Carbon Dioxide (22-30) mmol/L Anion Gap (10-20) BUN (7-17) mg/dl Creatinine (0.7-1.2) mg/dL Est GFR ( Amer) Est GFR (Non-Af Amer) POC Glucose (mg/dL) 175 H (65-110) mg/dL Random Glucose (65-105) mg/dL Calcium (8.4-10.2) mg/dL Total Bilirubin (0.2-1.3) mg/dl AST (14-36) U/L ALT (9-52) U/L Alkaline Phosphatase (38-126) U/L Total Protein (6.3-8.2) G/DL Albumin (3.5-5.0) g/dL Globulin (2.2-3.9) gm/dL Albumin/Globulin Ratio (1.0-2.1) Laboratory Results - last 24 hr 01/28/17 01/28/17 01/28/17 11:09 16:04 16:29 WBC RBC Hgb Hct MCV MCH MCHC RDW Plt Count pCO2 53 H pO2 108 H HCO3 26.5 ABG pH 7.34 L ABG Total CO2 30.2 H ABG O2 Saturation 99.3 H ABG O2 Content 15.2 ABG Base Excess 2.0 ABG Hemoglobin 11.2 L ABG Carboxyhemoglobin 2.0 H POC ABG HHb (Measured) 0.7 ABG Methemoglobin 1.6 ABG O2 Capacity 15.3 L Rakan Test Yes A-a O2 Difference 111.0 Hgb O2 Saturation 95.7 Vent Mode FiO2 40.0 Sodium Potassium Chloride Carbon Dioxide Anion Gap BUN Creatinine Est GFR ( Amer) Est GFR (Non-Af Amer) POC Glucose (mg/dL) 175 H 96 Random Glucose Calcium Total Bilirubin AST ALT Alkaline Phosphatase Total Protein Albumin Globulin Albumin/Globulin Ratio 01/28/17 01/29/17 01/29/17 21:46 04:20 04:20 WBC 7.4 RBC 3.60 L Hgb 10.7 L Hct 32.4 L MCV 90.1 D MCH 29.8 MCHC 33.1 RDW 22.2 H Plt Count 200 pCO2 pO2 HCO3 ABG pH ABG Total CO2 ABG O2 Saturation ABG O2 Content ABG Base Excess ABG Hemoglobin ABG Carboxyhemoglobin POC ABG HHb (Measured) ABG Methemoglobin ABG O2 Capacity Rakan Test A-a O2 Difference Hgb O2 Saturation Vent Mode FiO2 Sodium 138 Potassium 4.3 Chloride 101 Carbon Dioxide 30 Anion Gap 11 BUN 28 H Creatinine 1.0 Est GFR ( Amer) > 60 Est GFR (Non-Af Amer) 54 POC Glucose (mg/dL) 151 H Random Glucose 100 Calcium 8.8 Total Bilirubin 0.2 AST 23 ALT 33 Alkaline Phosphatase 86 Total Protein 5.9 L Albumin 2.7 L Globulin 3.2 Albumin/Globulin Ratio 0.8 L 01/29/17 01/29/17 05:19 05:21 WBC RBC Hgb Hct MCV MCH MCHC RDW Plt Count pCO2 56 H pO2 73 L HCO3 27.5 ABG pH 7.34 L ABG Total CO2 31.9 H ABG O2 Saturation 97.8 ABG O2 Content 14.4 L ABG Base Excess 3.4 H ABG Hemoglobin 10.8 L ABG Carboxyhemoglobin 2.1 H POC ABG HHb (Measured) 2.1 ABG Methemoglobin 1.5 ABG O2 Capacity 14.7 L Rakan Test Yes A-a O2 Difference 142.0 Hgb O2 Saturation 94.3 L Vent Mode Trach collar FiO2 40.0 Sodium Potassium Chloride Carbon Dioxide Anion Gap BUN Creatinine Est GFR ( Amer) Est GFR (Non-Af Amer) POC Glucose (mg/dL) 102 Random Glucose Calcium Total Bilirubin AST ALT Alkaline Phosphatase Total Protein Albumin Globulin Albumin/Globulin Ratio Fingerstick Blood Sugar Results: 102 Review of Systems - Review of Systems Systems not reviewed;Unavailable: Other (s/p tracheostomy) - Constitutional Constitutional: absent: Fever, Sweats - Cardiovascular Cardiovascular: absent: Chest Pain, Paroxysmal Nocturnal Dyspnea - Respiratory Respiratory: absent: Dyspnea - Gastrointestinal Gastrointestinal: absent: Abdominal Pain, Nausea, Vomiting - Genitourinary Genitourinary: absent: Dysuria - Integumentary Integumentary: absent: Pruritus - Neurological Neurological: absent: Dizziness, Headaches Critical Care Progress Note - Nutrition Nutrition: Nutrition Category Date Time Status NPO Diet [DIET] Diets 01/27/17 Breakfast Active Assessment/Plan - Assessment and Plan (Free Text) Assessment: 71 y/o woman w/ pmh of PEG (placed 2 days prior to admission), bed bound, dementia, CHF EF 30%, AFib, HTN, and HLD in ICU for respiratory failure. Plan: Acute respiratory failure with hypercapnia - s/p tracheostomy 01/27/2017 - ABG: pCO2 56, pO2 73, HCO3 27.5, pH 7.34 - CXR 01/28/2017 s/p trach: improving pulmonary edema, trach placed properly, unresolving pulmonry infiltrates - patient currently on trach collar, 50% O2 - pulmonary support bed - surgery recommendations appreciated - Pulmonary consult, Dr. Mendoza, recommendations appreciated COPD exacerbation - patient has history of emphysema - patient retaining CO2 - DC'ed methyprednisolone 10 mg IV Q12h - start prednisone 10 mg PO daily - c/w mucomyst 2 mL BID - c/w duonebs to Q4h - c/w chest PT Q4h s/p duoneb therapy I & O - negative balance - on lasix 40 mg IV daily Diet - reports appetite - PEG placed due to poor nutrition - tube feeds 40mL/hr - c/w glucerna 1.2 when feeds resume - on sliding scale insulin - speech and swallow evaluation ordered Type 2 diabetes - newly diagnosed, HbA1c 6.9% - on insulin sliding scale HCAP (healthcare-associated pneumonia) - sputum culture 01/10/2017 grew Staph aureus susceptible to all antibiotics except penicillin - sputum culture 01/16/2017 shows normal oral errol - DC'ed IV Piperacillin Sod/Tazobactam 2.25 g Q6h on day 15 - clindamycin 600 mg IV Q8h day 9 - c/w tylenol for fever prn - ID consult, Dr. Mosqueda, recommendations appreciated HTN - elevated BPs - c/w norvasc 5 mg PO daily - c/w labetalol 100 mg PO Q8 - continue to monitor Cardiac arrest - ACLS initiated in longterm, ROSC achieved prior to EMS arrival, intubated for agonal breathing - improved mental status, Patient awake, oriented, follow commands. - K+ normalized Anemia - anemic since admission, Hb 6.9 01/12/2017 - s/p 1 PRBC 01/12/2017 - s/p 2 PRBC 01/22/2017 - No evidence of active bleeding - Hb today 10.7 - minimal to no blood loss from procedure Atrial fibrillation - chronic, home meds restarted - c/w xarelto 15 mg PO daily - c/w digoxin 0.125 mg PO daily - DC'ed lopressor 12.5 mg PO Q12h - cardiac monitoring Prophylactic Measures - pepcid 20 mg IVP Q12 - lactobacillus 1 capsule PO BID - SCDs - PT eval/treat ordered for passive ROM Dispo - integrated marketing manager to have patient evaluated for placement LTAC vs. retrun to previous facility <Troy Reyes - Last Filed: 01/29/17 15:56> CCU Objective - Vital Signs / Intake & Output Vital Signs (Last 4 hours): Vital Signs Temp Pulse Resp BP Pulse Ox 01/29/17 14:00 74 26 H 123/75 97 01/29/17 12:00 97.9 F 60 22 108/59 L 96 Intake and Output (Last 8hrs): Intake & Output 01/29/17 01/29/17 01/29/17 06:59 14:59 22:59 Intake Total 632 580 Output Total 950 1300 Balance -318 -720 Weight 100 lb 3.2 oz Intake: IV 12 Intake, Piggyback 100 100 Tube Feeding 320 280 Free Water Flush 200 200 Output: Urine 950 1300 Urethral (Atkins) 950 1300 Other: # Bowel Movements 1 - Medications Active Medications: Active Medications Generic Name Dose Route Start Last Admin Trade Name Freq PRN Reason Stop Dose Admin Acetylcysteine 2 ml 01/20/17 20:00 01/29/17 07:44 Mucomyst 10% 4ml IH 2 ml RBID [facility] Administration Albuterol/Ipratropium 3 ml 01/21/17 12:00 01/29/17 15:43 Duoneb 3 Mg/0.5 Mg (3 Ml) Ud INH 3 ml RQ4 [facility] Administration Amlodipine Besylate 5 mg 01/24/17 12:15 01/29/17 10:10 Norvasc PO 5 mg DAILY [facility] Administration Digoxin 0.125 mg 01/22/17 18:00 01/28/17 17:23 Lanoxin PO 0.125 mg DAILY@1800 [facility] Administration Famotidine 20 mg 01/16/17 21:00 01/29/17 10:10 Pepcid PO 20 mg Q12 [facility] Administration Furosemide 40 mg 01/24/17 16:30 01/29/17 10:13 Lasix IVP 40 mg DAILY [facility] Administration Clindamycin Phosphate 600 mg/ 104 mls @ 104 mls/hr 01/27/17 11:00 01/29/17 10 :09 Sodium Chloride IVPB 104 mls/hr Q8 [facility] Administration Protocol Insulin Human Regular 0 units 01/16/17 11:48 01/29/17 12:00 Humulin R SC 2 unit ACCU-CHECK [facility] Administration Protocol Labetalol HCl 100 mg 01/24/17 17:00 01/29/17 10:11 Trandate PO 100 mg Q8 [facility] Administration Lactobacillus Acidophilus 1 cap 01/26/17 09:00 01/29/17 10:13 Bacid Acidophilus PO 1 cap BID [facility] Administration Prednisone 10 mg 01/29/17 09:00 01/29/17 10:11 Prednisone Tab PO 10 mg DAILY [facility] Administration Rivaroxaban 15 mg 01/16/17 17:00 01/28/17 16:31 Xarelto PO 15 mg DAILY@1700 [facility] Administration Protocol - Patient Studies Lab Studies: Lab Studies 01/29/17 01/29/17 01/29/17 Range/Units 11:36 05:21 05:19 WBC (4.8-10.8) K/uL RBC (3.80-5.20) Mil/uL Hgb (12.0-16.0) g/dL Hct (34.0-47.0) % MCV (81.0-99.0) fl MCH (27.0-31.0) pg MCHC (33.0-37.0) g/dL RDW (11.5-14.5) % Plt Count (130-400) K/uL pCO2 56 H (35-45) mm/Hg pO2 73 L (80-100) mm/Hg HCO3 27.5 (21-28) mmol/L ABG pH 7.34 L (7.35-7.45) ABG Total CO2 31.9 H (22-28) mmol/L ABG O2 Saturation 97.8 (95-98) % ABG O2 Content 14.4 L (15-23) ML/dL ABG Base Excess 3.4 H (-2.0-3.0) mmol/L ABG Hemoglobin 10.8 L (11.7-17.4) g/dL ABG Carboxyhemoglobin 2.1 H (0.5-1.5) % POC ABG HHb (Measured) 2.1 (0.0-5.0) % ABG Methemoglobin 1.5 (0.0-3.0) % ABG O2 Capacity 14.7 L (16-24) mL/dL Rakan Test Yes A-a O2 Difference 142.0 mm/Hg Hgb O2 Saturation 94.3 L (95.0-98.0) % Vent Mode Trach collar FiO2 40.0 % Sodium (132-148) mmol/l Potassium (3.6-5.0) MMOL/L Chloride (98-107) mmol/L Carbon Dioxide (22-30) mmol/L Anion Gap (10-20) BUN (7-17) mg/dl Creatinine (0.7-1.2) mg/dL Est GFR ( Amer) Est GFR (Non-Af Amer) POC Glucose (mg/dL) 154 H 102 (65-110) mg/dL Random Glucose (65-105) mg/dL Calcium (8.4-10.2) mg/dL Total Bilirubin (0.2-1.3) mg/dl AST (14-36) U/L ALT (9-52) U/L Alkaline Phosphatase (38-126) U/L Total Protein (6.3-8.2) G/DL Albumin (3.5-5.0) g/dL Globulin (2.2-3.9) gm/dL Albumin/Globulin Ratio (1.0-2.1) 01/29/17 01/29/17 01/28/17 Range/Units 04:20 04:20 21:46 WBC 7.4 (4.8-10.8) K/uL RBC 3.60 L (3.80-5.20) Mil/uL Hgb 10.7 L (12.0-16.0) g/dL Hct 32.4 L (34.0-47.0) % MCV 90.1 D (81.0-99.0) fl MCH 29.8 (27.0-31.0) pg MCHC 33.1 (33.0-37.0) g/dL RDW 22.2 H (11.5-14.5) % Plt Count 200 (130-400) K/uL pCO2 (35-45) mm/Hg pO2 (80-100) mm/Hg HCO3 (21-28) mmol/L ABG pH (7.35-7.45) ABG Total CO2 (22-28) mmol/L ABG O2 Saturation (95-98) % ABG O2 Content (15-23) ML/dL ABG Base Excess (-2.0-3.0) mmol/L ABG Hemoglobin (11.7-17.4) g/dL ABG Carboxyhemoglobin (0.5-1.5) % POC ABG HHb (Measured) (0.0-5.0) % ABG Methemoglobin (0.0-3.0) % ABG O2 Capacity (16-24) mL/dL Rakan Test A-a O2 Difference mm/Hg Hgb O2 Saturation (95.0-98.0) % Vent Mode FiO2 % Sodium 138 (132-148) mmol/l Potassium 4.3 (3.6-5.0) MMOL/L Chloride 101 (98-107) mmol/L Carbon Dioxide 30 (22-30) mmol/L Anion Gap 11 (10-20) BUN 28 H (7-17) mg/dl Creatinine 1.0 (0.7-1.2) mg/dL Est GFR ( Amer) > 60 Est GFR (Non-Af Amer) 54 POC Glucose (mg/dL) 151 H (65-110) mg/dL Random Glucose 100 (65-105) mg/dL Calcium 8.8 (8.4-10.2) mg/dL Total Bilirubin 0.2 (0.2-1.3) mg/dl AST 23 (14-36) U/L ALT 33 (9-52) U/L Alkaline Phosphatase 86 (38-126) U/L Total Protein 5.9 L (6.3-8.2) G/DL Albumin 2.7 L (3.5-5.0) g/dL Globulin 3.2 (2.2-3.9) gm/dL Albumin/Globulin Ratio 0.8 L (1.0-2.1) 01/28/17 01/28/17 Range/Units 16:29 16:04 WBC (4.8-10.8) K/uL RBC (3.80-5.20) Mil/uL Hgb (12.0-16.0) g/dL Hct (34.0-47.0) % MCV (81.0-99.0) fl MCH (27.0-31.0) pg MCHC (33.0-37.0) g/dL RDW (11.5-14.5) % Plt Count (130-400) K/uL pCO2 53 H (35-45) mm/Hg pO2 108 H (80-100) mm/Hg HCO3 26.5 (21-28) mmol/L ABG pH 7.34 L (7.35-7.45) ABG Total CO2 30.2 H (22-28) mmol/L ABG O2 Saturation 99.3 H (95-98) % ABG O2 Content 15.2 (15-23) ML/dL ABG Base Excess 2.0 (-2.0-3.0) mmol/L ABG Hemoglobin 11.2 L (11.7-17.4) g/dL ABG Carboxyhemoglobin 2.0 H (0.5-1.5) % POC ABG HHb (Measured) 0.7 (0.0-5.0) % ABG Methemoglobin 1.6 (0.0-3.0) % ABG O2 Capacity 15.3 L (16-24) mL/dL Rakan Test Yes A-a O2 Difference 111.0 mm/Hg Hgb O2 Saturation 95.7 (95.0-98.0) % Vent Mode FiO2 40.0 % Sodium (132-148) mmol/l Potassium (3.6-5.0) MMOL/L Chloride (98-107) mmol/L Carbon Dioxide (22-30) mmol/L Anion Gap (10-20) BUN (7-17) mg/dl Creatinine (0.7-1.2) mg/dL Est GFR ( Amer) Est GFR (Non-Af Amer) POC Glucose (mg/dL) 96 (65-110) mg/dL Random Glucose (65-105) mg/dL Calcium (8.4-10.2) mg/dL Total Bilirubin (0.2-1.3) mg/dl AST (14-36) U/L ALT (9-52) U/L Alkaline Phosphatase (38-126) U/L Total Protein (6.3-8.2) G/DL Albumin (3.5-5.0) g/dL Globulin (2.2-3.9) gm/dL Albumin/Globulin Ratio (1.0-2.1) Laboratory Results - last 24 hr 01/28/17 01/28/17 01/28/17 16:04 16:29 21:46 WBC RBC Hgb Hct MCV MCH MCHC RDW Plt Count pCO2 53 H pO2 108 H HCO3 26.5 ABG pH 7.34 L ABG Total CO2 30.2 H ABG O2 Saturation 99.3 H ABG O2 Content 15.2 ABG Base Excess 2.0 ABG Hemoglobin 11.2 L ABG Carboxyhemoglobin 2.0 H POC ABG HHb (Measured) 0.7 ABG Methemoglobin 1.6 ABG O2 Capacity 15.3 L Rakan Test Yes A-a O2 Difference 111.0 Hgb O2 Saturation 95.7 Vent Mode FiO2 40.0 Sodium Potassium Chloride Carbon Dioxide Anion Gap BUN Creatinine Est GFR ( Amer) Est GFR (Non-Af Amer) POC Glucose (mg/dL) 96 151 H Random Glucose Calcium Total Bilirubin AST ALT Alkaline Phosphatase Total Protein Albumin Globulin Albumin/Globulin Ratio 01/29/17 01/29/17 01/29/17 04:20 04:20 05:19 WBC 7.4 RBC 3.60 L Hgb 10.7 L Hct 32.4 L MCV 90.1 D MCH 29.8 MCHC 33.1 RDW 22.2 H Plt Count 200 pCO2 56 H pO2 73 L HCO3 27.5 ABG pH 7.34 L ABG Total CO2 31.9 H ABG O2 Saturation 97.8 ABG O2 Content 14.4 L ABG Base Excess 3.4 H ABG Hemoglobin 10.8 L ABG Carboxyhemoglobin 2.1 H POC ABG HHb (Measured) 2.1 ABG Methemoglobin 1.5 ABG O2 Capacity 14.7 L Rakan Test Yes A-a O2 Difference 142.0 Hgb O2 Saturation 94.3 L Vent Mode Trach collar FiO2 40.0 Sodium 138 Potassium 4.3 Chloride 101 Carbon Dioxide 30 Anion Gap 11 BUN 28 H Creatinine 1.0 Est GFR ( Amer) > 60 Est GFR (Non-Af Amer) 54 POC Glucose (mg/dL) Random Glucose 100 Calcium 8.8 Total Bilirubin 0.2 AST 23 ALT 33 Alkaline Phosphatase 86 Total Protein 5.9 L Albumin 2.7 L Globulin 3.2 Albumin/Globulin Ratio 0.8 L 01/29/17 01/29/17 05:21 11:36 WBC RBC Hgb Hct MCV MCH MCHC RDW Plt Count pCO2 pO2 HCO3 ABG pH ABG Total CO2 ABG O2 Saturation ABG O2 Content ABG Base Excess ABG Hemoglobin ABG Carboxyhemoglobin POC ABG HHb (Measured) ABG Methemoglobin ABG O2 Capacity [place] Test A-a O2 Difference Hgb O2 Saturation Vent Mode FiO2 Sodium Potassium Chloride Carbon Dioxide Anion Gap BUN Creatinine Est GFR ( Amer) Est GFR (Non-Af Amer) POC Glucose (mg/dL) 102 154 H Random Glucose Calcium Total Bilirubin AST ALT Alkaline Phosphatase Total Protein Albumin Globulin Albumin/Globulin Ratio Critical Care Progress Note - Nutrition Nutrition: Nutrition Category Date Time Status NPO Diet [DIET] Diets 01/27/17 Breakfast Active Assessment/Plan - Assessment and Plan (Free Text) Plan: Attestation: Patient seen and examined at the bedside with Resident Dr. Barb Angelo; and I agree with his outline of plans and management documented below as discussed on AM rounds reflecting my review of all applicable clinical data, and participation in the care of the patient throughout the day in ICU; today, January 29, 2017.
[2017-01-29] MEDS: Lactobacillus Acidophilus 500 MU Cap PO SCH ×2 (10:13→16:18)
--- NOTE | 2017-01-29 14:03 | CP.PCM.PN ---
Subjective - Date & Time of Evaluation Date of Evaluation: 01/29/17 Time of Evaluation: 07:00 - Subjective Subjective: Patient seen and examined at bedside with Dr. Templeton. Patient responds to voice and opens her eys. No overnight events reported. Tolerating tube feeds. Patient is s/p tracheostomy and currently has a trach collar. Objective - Vital Signs/Intake and Output Vital Signs (last 24 hours): Temp Pulse Resp BP Pulse Ox 97.9 F 60 22 108/59 L 96 01/29/17 12:00 01/29/17 12:00 01/29/17 12:00 01/29/17 12:00 01/29/17 12:00 Intake and Output: 01/29/17 01/29/17 06:59 18:59 Intake Total 866 400 Output Total 950 850 Balance -84 -450 - Medications Medications: Current Medications Acetylcysteine (Mucomyst 10% 4ml) 2 ml IH RBID [facility] Last Admin: 01/29/17 07:44 Dose: 2 ml Albuterol/Ipratropium (Duoneb 3 Mg/0.5 Mg (3 Ml) Ud) 3 ml INH RQ4 [facility] Last Admin: 01/29/17 11:21 Dose: 3 ml Amlodipine Besylate (Norvasc) 5 mg PO DAILY [facility] Last Admin: 01/29/17 10:10 Dose: 5 mg Digoxin (Lanoxin) 0.125 mg PO DAILY@1800 [facility] Last Admin: 01/28/17 17:23 Dose: 0.125 mg Famotidine (Pepcid) 20 mg PO Q12 [facility] Last Admin: 01/29/17 10:10 Dose: 20 mg Furosemide (Lasix) 40 mg IVP DAILY [facility] Last Admin: 01/29/17 10:13 Dose: 40 mg Clindamycin Phosphate 600 mg/ (Sodium Chloride) 104 mls @ 104 mls/hr IVPB Q8 [facility] PRN Reason: Protocol Last Admin: 01/29/17 10:09 Dose: 104 mls/hr Insulin Human Regular (Humulin R) 0 units SC ACCU-CHECK [facility] PRN Reason: Protocol Last Admin: 01/29/17 12:00 Dose: 2 unit Labetalol HCl (Trandate) 100 mg PO Q8 [facility] Last Admin: 01/29/17 10:11 Dose: 100 mg Lactobacillus Acidophilus (Bacid Acidophilus) 1 cap PO BID [facility] Last Admin: 01/29/17 10:13 Dose: 1 cap Prednisone (Prednisone Tab) 10 mg PO DAILY [facility] Last Admin: 01/29/17 10:11 Dose: 10 mg Rivaroxaban (Xarelto) 15 mg PO DAILY@1700 [facility] PRN Reason: Protocol Last Admin: 01/28/17 16:31 Dose: 15 mg - Labs Labs: 01/29/17 04:20 01/29/17 04:20 PT 11.3 Seconds (9.8-13.1) 01/27/17 05:00 INR 1.0 (0.9-1.2) 01/27/17 05:00 APTT 27.6 Seconds (25.6-37.1) 01/27/17 05:00 - Constitutional Appears: No Acute Distress - Eye Exam Eye Exam: Normal appearance - Neck Exam Additional comments: Trach collar in place - Respiratory Exam Respiratory Exam: Decreased Breath Sounds - Cardiovascular Exam Cardiovascular Exam: Irregular Rhythm, +S1, +S2 - GI/Abdominal Exam GI & Abdominal Exam: Soft. absent: Tenderness - Neurological Exam Neurological Exam: Alert, Awake, CN II-XII Intact - Skin Skin Exam: Normal Color, Warm Assessment and Plan - Assessment and Plan (Free Text) Assessment: 1) Acute respiratory failure w/ hypercapnia -s/p tracheostomy on 01/27/2017 - ABG: pCO2 56, pO2 73, HCO3 27.5, pH 7.34 - CXR 01/28/2017 s/p trach: improving pulmonary edema, trach placed properly, unresolving pulmonry infiltrates 2) HCAP sputum culture 01/10/2017 grew Staph aureus susceptible to all antibiotics except penicillin - sputum culture 01/16/2017 shows normal oral errol - clindamycin 600 mg IV Q8h day 9 - ID consult appreciated 3) COPD exacerbation - retaining CO2 - D/C methyprednisolone - Continue with Duoneb Q4 - Start prednislone 10 mg tomorrow - mucomyst 2 mL BID - c/w chest PT Q4h s/p duoneb therapy 4) Type 2 DM - Newly diagnosed: 6.9 - on insulin sliding scale 5)Anemia - - repeat Hb 10.6 post trach, minimal blood loss from procedure 6) Chronic Atrial fibrilation -xarelto 15 mg PO - Digoxin .125 mg - Lopresor 12.5 mg PO -cardiac monitoring - 7) Prophylaxis SCD for DVT prophylaxis Pepcid for GI Px
--- NOTE | 2017-01-29 14:23 | CP.PCM.PN ---
Subjective - Date & Time of Evaluation Date of Evaluation: 01/29/17 Time of Evaluation: 14:00 - Subjective Subjective: Patient seen and examined at bedside this AM. NAEO. Patient is able to communicate via shaking her head and denies pain, nausea, vomiting, fevers, or problems breathing Objective - Vital Signs/Intake and Output Vital Signs (last 24 hours): Temp Pulse Resp BP Pulse Ox 97.9 F 74 26 H 123/75 97 01/29/17 12:00 01/29/17 14:00 01/29/17 14:00 01/29/17 14:00 01/29/17 14:00 Intake and Output: 01/29/17 01/29/17 06:59 18:59 Intake Total 866 580 Output Total 950 1300 Balance -84 -720 - Medications Medications: Current Medications Acetylcysteine (Mucomyst 10% 4ml) 2 ml IH RBID [facility] Last Admin: 01/29/17 07:44 Dose: 2 ml Albuterol/Ipratropium (Duoneb 3 Mg/0.5 Mg (3 Ml) Ud) 3 ml INH RQ4 [facility] Last Admin: 01/29/17 11:21 Dose: 3 ml Amlodipine Besylate (Norvasc) 5 mg PO DAILY [facility] Last Admin: 01/29/17 10:10 Dose: 5 mg Digoxin (Lanoxin) 0.125 mg PO DAILY@1800 [facility] Last Admin: 01/28/17 17:23 Dose: 0.125 mg Famotidine (Pepcid) 20 mg PO Q12 [facility] Last Admin: 01/29/17 10:10 Dose: 20 mg Furosemide (Lasix) 40 mg IVP DAILY [facility] Last Admin: 01/29/17 10:13 Dose: 40 mg Clindamycin Phosphate 600 mg/ (Sodium Chloride) 104 mls @ 104 mls/hr IVPB Q8 [facility] PRN Reason: Protocol Last Admin: 01/29/17 10:09 Dose: 104 mls/hr Insulin Human Regular (Humulin R) 0 units SC ACCU-CHECK [facility] PRN Reason: Protocol Last Admin: 01/29/17 12:00 Dose: 2 unit Labetalol HCl (Trandate) 100 mg PO Q8 [facility] Last Admin: 01/29/17 10:11 Dose: 100 mg Lactobacillus Acidophilus (Bacid Acidophilus) 1 cap PO BID [facility] Last Admin: 01/29/17 10:13 Dose: 1 cap Prednisone (Prednisone Tab) 10 mg PO DAILY [facility] Last Admin: 01/29/17 10:11 Dose: 10 mg Rivaroxaban (Xarelto) 15 mg PO DAILY@1700 [facility] PRN Reason: Protocol Last Admin: 01/28/17 16:31 Dose: 15 mg - Labs Labs: 01/29/17 04:20 01/29/17 04:20 PT 11.3 Seconds (9.8-13.1) 01/27/17 05:00 INR 1.0 (0.9-1.2) 01/27/17 05:00 APTT 27.6 Seconds (25.6-37.1) 01/27/17 05:00 - Constitutional Appears: Non-toxic, In Acute Distress - Head Exam Head Exam: ATRAUMATIC, NORMOCEPHALIC - Eye Exam Eye Exam: Normal appearance. absent: Conjunctival injection, Scleral icterus - ENT Exam ENT Exam: Mucous Membranes Moist Additional comments: tracheostomy in proper position, mild amount of serosanguinous saturation on the surgical dressing - Respiratory Exam Respiratory Exam: absent: Accessory Muscle Use, Respiratory Distress Additional comments: Patient mechanically ventillated - Cardiovascular Exam Cardiovascular Exam: RRR - GI/Abdominal Exam GI & Abdominal Exam: Soft. absent: Distended, Tenderness - Extremities Exam Extremities Exam: absent: Calf Tenderness, Pedal Edema, Tenderness - Neurological Exam Neurological Exam: Alert, Awake, Oriented x3 - Psychiatric Exam Psychiatric exam: Normal Affect, Normal Mood - Skin Skin Exam: Dry, Normal Color, Warm Assessment and Plan - Assessment and Plan (Free Text) Assessment: 71F with respiratory failure POD#2 s/p percutaneous tracheostomy placement Plan: -Removed surgical dressing -Will remove sutures on POD#14 if patient is still requiring intubation -Continue medical management per the primary and ICU teams -Contact surgical team with any questions or concerns Thank you for this consult Discussed with Dr. Fco Dillard, PGY2
[2017-01-29] MEDS: Digoxin 125 mcg (0.125 mg) Tab PO SCH (17:21)
[2017-01-30] MEDS: Clindamycin 600 MG in Sodium Chloride 0.9% 100 ML IVPB SCH ×3 (00:06→16:58)
[2017-01-30] MEDS: Albuterol-Ipratrop 3 mg / 0.5 (3 ml) UD INH SCH ×7 (00:41→23:27)
[2017-01-30 05:17] LABS: HEMATOCRIT 32.1 % (34.0-47.0); MEAN CELL VOLUME 90.2 fl (81.0-99.0); MEAN CORPUSCULAR HEMOGLOBIN 29.3 pg (27.0-31.0); MEAN CORPUSCULAR HGB CONC 32.5 g/dL (33.0-37.0); WHITE BLOOD COUNT 6.3 K/uL (4.8-10.8)
[2017-01-30 05:19] LABS: ABG ALLEN TEST YES; ARTERIAL BLOOD GAS HCO3 30.6 mmol/L (21-28); ARTERIAL BLOOD GAS MODE TRACH COLLAR; ARTERIAL BLOOD GAS O2 CAPACITY 14.3 mL/dL (16-24); ARTERIAL BLOOD GAS PO2 76 mm/Hg (80-100); ARTERIAL BLOOD HGB O2 SAT 94.5 % (95.0-98.0); HHB 1.9 % (0.0-5.0); METHEMOGLOBIN 1.7 % (0.0-3.0)
[2017-01-30 05:26] LABS: ALB/GLOB RATIO 0.8 (1.0-2.1); ALKALINE PHOSPHATASE 97 U/L (38-126); ALT/SGPT 31 U/L (9-52); AST/SGOT 20 U/L (14-36); BILIRUBIN,TOTAL 0.3 mg/dl (0.2-1.3); BLOOD UREA NITROGEN 26 mg/dl (7-17); CARBON DIOXIDE 31 mmol/L (22-30); CHLORIDE 99 mmol/L (98-107); GFR AFRICAN-AMERICAN > 60; GLUCOSE,RANDOM 94 mg/dL (65-105); POTASSIUM 4.1 MMOL/L (3.6-5.0); SODIUM 134 mmol/l (132-148); TOTAL PROTEIN 5.9 G/DL (6.3-8.2)
[2017-01-30] MEDS: Insulin Regular 100 units/ml SC SCH ×4 (06:14→22:46)
[2017-01-30] MEDS: Acetylcysteine 10% 4 ML IH SCH ×2 (07:33→20:13)
[2017-01-30] MEDS: Lactobacillus Acidophilus 500 MU Cap PO SCH ×2 (08:56→16:57)
--- NOTE | 2017-01-30 10:08 | CP.CCUPN ---
<Perry Angelo - Last Filed: 01/30/17 10:06> CCU Subjective - Physician Review Subjective (Free Text): 01/30/17 10:06 Patient this morning. No acute distress, denies pain, responsive to name call, opens eyes, and follows commands. There are no acute events overnight. Patient has no complaints and expresses appetite. Patient is s/p tracheostomy and tolerated procedure well w/o complications. Patient now on trach collar O2 30%. Tolerating tube feeding. Xarelto resumed. Trach to be deflated today to allow for formal speech/swallow evaluation. CCU Objective - Vital Signs / Intake & Output Vital Signs (Last 4 hours): Vital Signs Temp Pulse Resp BP Pulse Ox 01/30/17 08:53 82 127/96 H 01/30/17 08:52 127/96 H 01/30/17 08:00 98.2 F 83 18 127/96 H 100 Intake and Output (Last 8hrs): Intake & Output 01/29/17 01/30/17 01/30/17 22:59 06:59 14:59 Intake Total 494 628 140 Output Total 655 750 Balance -161 -122 140 Weight 99 lb 11.2 oz Intake: IV 14 8 Intake, Piggyback 100 Tube Feeding 280 320 40 Free Water Flush 200 200 100 Output: Gastric Amount 5 Stomach 5 Urine 650 750 Urethral (Atkins) 650 750 Other: # Bowel Movements 1 - Physical Exam Head: Positive for: Normocephalic Pupils: Positive for: PERRL Extroacular Muscles: Positive for: EOMI Conjunctiva: Positive for: Normal. Negative for: Icteric Mouth: Positive for: Moist Mucous Membranes Neck: Positive for: JVD. Negative for: Meningeal Signs Respiratory/Chest: Positive for: Decreased Breath Sounds, Rales, Other (trach in place and secure). Negative for: Accessory Muscle Use, Wheezes Cardiovascular: Positive for: Regular Rate and Rhythm, Other (multiple PVCs). Negative for: Murmurs, Rub Abdomen: Positive for: Normal Bowel Sounds, Other (PEG intact). Negative for: Tenderness, Distention Lower Extremity: Positive for: NORMAL PULSES. Negative for: CALF TENDERNESS, Cyanosis Neurological: Positive for: Other (on blow by O2 30% s/p tracheostomy) Skin: Positive for: Warm. Negative for: Rashes Psychiatric: Positive for: Alert. Negative for: Anxious, Agitated - Medications Active Medications: Active Medications Generic Name Dose Route Start Last Admin Trade Name Meaghan PRN Reason Stop Dose Admin Acetylcysteine 2 ml 01/20/17 20:00 01/30/17 07:33 Mucomyst 10% 4ml IH 2 ml RBID [facility] Administration Albuterol/Ipratropium 3 ml 01/21/17 12:00 01/30/17 07:32 Duoneb 3 Mg/0.5 Mg (3 Ml) Ud INH 3 ml RQ4 [facility] Administration Amlodipine Besylate 5 mg 01/24/17 12:15 01/30/17 08:53 Norvasc PO 5 mg DAILY [facility] Administration Digoxin 0.125 mg 01/22/17 18:00 01/29/17 17:21 Lanoxin PO 0.125 mg DAILY@1800 [facility] Administration Famotidine 20 mg 01/16/17 21:00 01/30/17 08:53 Pepcid PO 20 mg Q12 [facility] Administration Furosemide 40 mg 01/24/17 16:30 01/30/17 08:52 Lasix IVP 40 mg DAILY [facility] Administration Clindamycin Phosphate 600 mg/ 104 mls @ 104 mls/hr 01/27/17 11:00 01/30/17 08 :52 Sodium Chloride IVPB 104 mls/hr Q8 [facility] Administration Protocol Insulin Human Regular 0 units 01/16/17 11:48 01/30/17 06:14 Humulin R SC Not Given ACCU-CHECK [facility] Protocol Labetalol HCl 100 mg 01/24/17 17:00 01/30/17 08:53 Trandate PO 100 mg Q8 [facility] Administration Lactobacillus Acidophilus 1 cap 01/26/17 09:00 01/30/17 08:56 Bacid Acidophilus PO 1 cap BID [facility] Administration Prednisone 10 mg 01/29/17 09:00 01/30/17 08:53 Prednisone Tab PO 10 mg DAILY [facility] Administration Rivaroxaban 15 mg 01/16/17 17:00 01/29/17 16:16 Xarelto PO 15 mg DAILY@1700 [facility] Administration Protocol - Patient Studies Lab Studies: Lab Studies 01/30/17 01/30/17 01/30/17 Range/Units 05:16 04:30 04:30 WBC 6.3 (4.8-10.8) K/uL RBC 3.55 L (3.80-5.20) Mil/uL Hgb 10.4 L (12.0-16.0) g/dL Hct 32.1 L (34.0-47.0) % MCV 90.2 (81.0-99.0) fl MCH 29.3 (27.0-31.0) pg MCHC 32.5 L (33.0-37.0) g/dL RDW 21.0 H (11.5-14.5) % Plt Count 192 (130-400) K/uL pCO2 54 H (35-45) mm/Hg pO2 76 L (80-100) mm/Hg HCO3 30.6 H (21-28) mmol/L ABG pH 7.40 (7.35-7.45) ABG Total CO2 35.1 H (22-28) mmol/L ABG O2 Saturation 98.0 (95-98) % ABG O2 Content 14.0 L (15-23) ML/dL ABG Base Excess 7.3 H (-2.0-3.0) mmol/L ABG Hemoglobin 10.5 L (11.7-17.4) g/dL ABG Carboxyhemoglobin 2.0 H (0.5-1.5) % POC ABG HHb (Measured) 1.9 (0.0-5.0) % ABG Methemoglobin 1.7 (0.0-3.0) % ABG O2 Capacity 14.3 L (16-24) mL/dL Rakan Test Yes A-a O2 Difference 70.0 mm/Hg Hgb O2 Saturation 94.5 L (95.0-98.0) % Vent Mode Trach collar FiO2 30.0 % Sodium 134 (132-148) mmol/l Potassium 4.1 (3.6-5.0) MMOL/L Chloride 99 (98-107) mmol/L Carbon Dioxide 31 H (22-30) mmol/L Anion Gap 8 L (10-20) BUN 26 H (7-17) mg/dl Creatinine 0.8 (0.7-1.2) mg/dL Est GFR ( Amer) > 60 Est GFR (Non-Af Amer) > 60 POC Glucose (mg/dL) (65-110) mg/dL Random Glucose 94 (65-105) mg/dL Calcium 8.0 L (8.4-10.2) mg/dL Total Bilirubin 0.3 (0.2-1.3) mg/dl AST 20 (14-36) U/L ALT 31 (9-52) U/L Alkaline Phosphatase 97 (38-126) U/L Total Protein 5.9 L (6.3-8.2) G/DL Albumin 2.6 L (3.5-5.0) g/dL Globulin 3.3 (2.2-3.9) gm/dL Albumin/Globulin Ratio 0.8 L (1.0-2.1) 01/30/17 01/29/17 01/29/17 Range/Units 04:08 20:20 16:02 WBC (4.8-10.8) K/uL RBC (3.80-5.20) Mil/uL Hgb (12.0-16.0) g/dL Hct (34.0-47.0) % MCV (81.0-99.0) fl MCH (27.0-31.0) pg MCHC (33.0-37.0) g/dL RDW (11.5-14.5) % Plt Count (130-400) K/uL pCO2 (35-45) mm/Hg pO2 (80-100) mm/Hg HCO3 (21-28) mmol/L ABG pH (7.35-7.45) ABG Total CO2 (22-28) mmol/L ABG O2 Saturation (95-98) % ABG O2 Content (15-23) ML/dL ABG Base Excess (-2.0-3.0) mmol/L ABG Hemoglobin (11.7-17.4) g/dL ABG Carboxyhemoglobin (0.5-1.5) % POC ABG HHb (Measured) (0.0-5.0) % ABG Methemoglobin (0.0-3.0) % ABG O2 Capacity (16-24) mL/dL Rakan Test A-a O2 Difference mm/Hg Hgb O2 Saturation (95.0-98.0) % Vent Mode FiO2 % Sodium (132-148) mmol/l Potassium (3.6-5.0) MMOL/L Chloride (98-107) mmol/L Carbon Dioxide (22-30) mmol/L Anion Gap (10-20) BUN (7-17) mg/dl Creatinine (0.7-1.2) mg/dL Est GFR ( Amer) Est GFR (Non-Af Amer) POC Glucose (mg/dL) 114 H 166 H 182 H (65-110) mg/dL Random Glucose (65-105) mg/dL Calcium (8.4-10.2) mg/dL Total Bilirubin (0.2-1.3) mg/dl AST (14-36) U/L ALT (9-52) U/L Alkaline Phosphatase (38-126) U/L Total Protein (6.3-8.2) G/DL Albumin (3.5-5.0) g/dL Globulin (2.2-3.9) gm/dL Albumin/Globulin Ratio (1.0-2.1) 01/29/17 Range/Units 11:36 WBC (4.8-10.8) K/uL RBC (3.80-5.20) Mil/uL Hgb (12.0-16.0) g/dL Hct (34.0-47.0) % MCV (81.0-99.0) fl MCH (27.0-31.0) pg MCHC (33.0-37.0) g/dL RDW (11.5-14.5) % Plt Count (130-400) K/uL pCO2 (35-45) mm/Hg pO2 (80-100) mm/Hg HCO3 (21-28) mmol/L ABG pH (7.35-7.45) ABG Total CO2 (22-28) mmol/L ABG O2 Saturation (95-98) % ABG O2 Content (15-23) ML/dL ABG Base Excess (-2.0-3.0) mmol/L ABG Hemoglobin (11.7-17.4) g/dL ABG Carboxyhemoglobin (0.5-1.5) % POC ABG HHb (Measured) (0.0-5.0) % ABG Methemoglobin (0.0-3.0) % ABG O2 Capacity (16-24) mL/dL Rakan Test A-a O2 Difference mm/Hg Hgb O2 Saturation (95.0-98.0) % Vent Mode FiO2 % Sodium (132-148) mmol/l Potassium (3.6-5.0) MMOL/L Chloride (98-107) mmol/L Carbon Dioxide (22-30) mmol/L Anion Gap (10-20) BUN (7-17) mg/dl Creatinine (0.7-1.2) mg/dL Est GFR ( Amer) Est GFR (Non-Af Amer) POC Glucose (mg/dL) 154 H (65-110) mg/dL Random Glucose (65-105) mg/dL Calcium (8.4-10.2) mg/dL Total Bilirubin (0.2-1.3) mg/dl AST (14-36) U/L ALT (9-52) U/L Alkaline Phosphatase (38-126) U/L Total Protein (6.3-8.2) G/DL Albumin (3.5-5.0) g/dL Globulin (2.2-3.9) gm/dL Albumin/Globulin Ratio (1.0-2.1) Laboratory Results - last 24 hr 01/29/17 01/29/17 01/29/17 11:36 16:02 20:20 WBC RBC Hgb Hct MCV MCH MCHC RDW Plt Count pCO2 pO2 HCO3 ABG pH ABG Total CO2 ABG O2 Saturation ABG O2 Content ABG Base Excess ABG Hemoglobin ABG Carboxyhemoglobin POC ABG HHb (Measured) ABG Methemoglobin ABG O2 Capacity Rakan Test A-a O2 Difference Hgb O2 Saturation Vent Mode FiO2 Sodium Potassium Chloride Carbon Dioxide Anion Gap BUN Creatinine Est GFR ( Amer) Est GFR (Non-Af Amer) POC Glucose (mg/dL) 154 H 182 H 166 H Random Glucose Calcium Total Bilirubin AST ALT Alkaline Phosphatase Total Protein Albumin Globulin Albumin/Globulin Ratio 01/30/17 01/30/17 01/30/17 04:08 04:30 04:30 WBC 6.3 RBC 3.55 L Hgb 10.4 L Hct 32.1 L MCV 90.2 MCH 29.3 MCHC 32.5 L RDW 21.0 H Plt Count 192 pCO2 pO2 HCO3 ABG pH ABG Total CO2 ABG O2 Saturation ABG O2 Content ABG Base Excess ABG Hemoglobin ABG Carboxyhemoglobin POC ABG HHb (Measured) ABG Methemoglobin ABG O2 Capacity Rakan Test A-a O2 Difference Hgb O2 Saturation Vent Mode FiO2 Sodium 134 Potassium 4.1 Chloride 99 Carbon Dioxide 31 H Anion Gap 8 L BUN 26 H Creatinine 0.8 Est GFR ( Amer) > 60 Est GFR (Non-Af Amer) > 60 POC Glucose (mg/dL) 114 H Random Glucose 94 Calcium 8.0 L Total Bilirubin 0.3 AST 20 ALT 31 Alkaline Phosphatase 97 Total Protein 5.9 L Albumin 2.6 L Globulin 3.3 Albumin/Globulin Ratio 0.8 L 01/30/17 05:16 WBC RBC Hgb Hct MCV MCH MCHC RDW Plt Count pCO2 54 H pO2 76 L HCO3 30.6 H ABG pH 7.40 ABG Total CO2 35.1 H ABG O2 Saturation 98.0 ABG O2 Content 14.0 L ABG Base Excess 7.3 H ABG Hemoglobin 10.5 L ABG Carboxyhemoglobin 2.0 H POC ABG HHb (Measured) 1.9 ABG Methemoglobin 1.7 ABG O2 Capacity 14.3 L Rakan Test Yes A-a O2 Difference 70.0 Hgb O2 Saturation 94.5 L Vent Mode Trach collar FiO2 30.0 Sodium Potassium Chloride Carbon Dioxide Anion Gap BUN Creatinine Est GFR ( Amer) Est GFR (Non-Af Amer) POC Glucose (mg/dL) Random Glucose Calcium Total Bilirubin AST ALT Alkaline Phosphatase Total Protein Albumin Globulin Albumin/Globulin Ratio Fingerstick Blood Sugar Results: 114 Review of Systems - Review of Systems Systems not reviewed;Unavailable: Other (s/p tracheosotmy) All systems: reviewed and no additional remarkable complaints except - Constitutional Constitutional: absent: Fever, Sweats - Cardiovascular Cardiovascular: absent: Chest Pain, Dyspnea, Palpitations - Respiratory Respiratory: absent: Dyspnea - Gastrointestinal Gastrointestinal: absent: Abdominal Pain, Nausea, Vomiting - Genitourinary Genitourinary: absent: Dysuria - Integumentary Integumentary: absent: Rash - Neurological Neurological: absent: Dizziness, Headaches Critical Care Progress Note - Nutrition Nutrition: Nutrition Category Date Time Status NPO Diet [DIET] Diets 01/27/17 Breakfast Active Assessment/Plan - Assessment and Plan (Free Text) Assessment: 71 y/o woman w/ pmh of PEG (placed 2 days prior to admission), bed bound, dementia, CHF EF 30%, AFib, HTN, and HLD in ICU for respiratory failure. Plan: Acute respiratory failure with hypercapnia - s/p tracheostomy 01/27/2017 - ABG: pCO2 54, pO2 76, HCO3 30.6, pH 7.40 - CXR 01/29/2017 s/p trach: improving pulmonary edema, trach placed properly, unresolved pulmonary infiltrates - patient currently on trach collar, 30% O2 - pulmonary support bed - surgery recommendations appreciated - Pulmonary consult, Dr. Mendoza, recommendations appreciated COPD exacerbation - patient has history of emphysema - patient retaining CO2 - DC'ed methyprednisolone 10 mg IV Q12h - start prednisone 10 mg PO daily - c/w mucomyst 2 mL BID - c/w duonebs to Q4h - c/w chest PT Q4h s/p duoneb therapy I & O - negative balance - on lasix 40 mg IV daily Diet - reports appetite - PEG placed due to poor nutrition - tube feeds 40mL/hr - c/w glucerna 1.2 when feeds resume - on sliding scale insulin - speech and swallow evaluation for Thursday, trach collar to be deflated today Type 2 diabetes - newly diagnosed, HbA1c 6.9% - on insulin sliding scale HCAP (healthcare-associated pneumonia) - sputum culture 01/10/2017 grew Staph aureus susceptible to all antibiotics except penicillin - sputum culture 01/16/2017 shows normal oral errol - DC'ed IV Piperacillin Sod/Tazobactam 2.25 g Q6h on day 15 - clindamycin 600 mg IV Q8h day 10 - c/w tylenol for fever prn - ID consult, Dr. Mosqueda, recommendations appreciated HTN - elevated BPs - c/w norvasc 5 mg PO daily - c/w labetalol 100 mg PO Q8 - continue to monitor Cardiac arrest - ACLS initiated in longterm, ROSC achieved prior to EMS arrival, intubated for agonal breathing - improved mental status, Patient awake, oriented, follow commands. - K+ normalized Anemia - anemic since admission, Hb 6.9 01/12/2017 - s/p 1 PRBC 01/12/2017 - s/p 2 PRBC 01/22/2017 - No evidence of active bleeding - Hb today 10.4 - minimal to no blood loss from procedure Atrial fibrillation - chronic, home meds restarted - c/w xarelto 15 mg PO daily - c/w digoxin 0.125 mg PO daily - DC'ed lopressor 12.5 mg PO Q12h - cardiac monitoring Prophylactic Measures - pepcid 20 mg IVP Q12 - lactobacillus 1 capsule PO BID - SCDs - PT eval/treat ordered for passive ROM Dispo - patient to be downgraded to Tele, transfer orders placed - track manager communicates that previous facility, [facility] is willing to take back patient on Thursday02/02/2017 <Troy Reyes - Last Filed: 01/30/17 15:35> Assessment/Plan - Assessment and Plan (Free Text) Plan: Attestation: Patient seen and examined at the bedside with Resident Dr. Barb Angelo; and I agree with his outline of plans and management documented below as discussed on AM rounds reflecting my review of all applicable clinical data, and participation in the care of the patient throughout the day in ICU; today, January 30, 2017.
--- NOTE | 2017-01-30 10:39 | RAD ---
HISTORY: s/p tracheostomy COMPARISON: 01/29/2017. FINDINGS: There is stable position of the tracheostomy tube. LUNGS: There is no significant interval change in confluent perihilar and lower lobe airspace disease. PLEURA: There are probable stable pleural effusions, no pneumothorax apparent. CARDIOVASCULAR: Normal. OSSEOUS STRUCTURES: No significant abnormalities. VISUALIZED UPPER ABDOMEN: Normal. OTHER FINDINGS: None. IMPRESSION: No change in presumable perihilar and lower lobe pulmonary edema and pleural effusions. Follow-up is advised.
--- NOTE | 2017-01-30 15:53 | CP.PCM.PN ---
Subjective - Date & Time of Evaluation Date of Evaluation: 01/30/17 Time of Evaluation: 15:49 - Subjective Subjective: Patient seen and examined at bedside with Dr. Templeton. Patient responds to calling her name. No overnight events reported. Patient is on a trach collar O2 30%. Tolerating tube feeding. Speech and swallow evaluation today Objective - Vital Signs/Intake and Output Vital Signs (last 24 hours): Temp Pulse Resp BP Pulse Ox 98.4 F 68 14 129/70 98 01/30/17 12:00 01/30/17 14:00 01/30/17 14:00 01/30/17 14:00 01/30/17 14:00 Intake and Output: 01/30/17 01/30/17 06:59 18:59 Intake Total 862 580 Output Total 755 Balance 107 580 - Medications Medications: Current Medications Acetylcysteine (Mucomyst 10% 4ml) 2 ml IH RBID [facility] Last Admin: 01/30/17 07:33 Dose: 2 ml Albuterol/Ipratropium (Duoneb 3 Mg/0.5 Mg (3 Ml) Ud) 3 ml INH RQ4 [facility] Last Admin: 01/30/17 11:41 Dose: 3 ml Amlodipine Besylate (Norvasc) 5 mg PO DAILY [facility] Last Admin: 01/30/17 08:53 Dose: 5 mg Digoxin (Lanoxin) 0.125 mg PO DAILY@1800 [facility] Last Admin: 01/29/17 17:21 Dose: 0.125 mg Famotidine (Pepcid) 20 mg PO Q12 [facility] Last Admin: 01/30/17 08:53 Dose: 20 mg Furosemide (Lasix) 40 mg IVP DAILY [facility] Last Admin: 01/30/17 08:52 Dose: 40 mg Clindamycin Phosphate 600 mg/ (Sodium Chloride) 104 mls @ 104 mls/hr IVPB Q8 [facility] PRN Reason: Protocol Last Admin: 01/30/17 08:52 Dose: 104 mls/hr Insulin Human Regular (Humulin R) 0 units SC ACCU-CHECK [facility] PRN Reason: Protocol Last Admin: 01/30/17 13:57 Dose: Not Given Labetalol HCl (Trandate) 100 mg PO Q8 [facility] Last Admin: 01/30/17 08:53 Dose: 100 mg Lactobacillus Acidophilus (Bacid Acidophilus) 1 cap PO BID [facility] Last Admin: 01/30/17 08:56 Dose: 1 cap Prednisone (Prednisone Tab) 10 mg PO DAILY [facility] Last Admin: 01/30/17 08:53 Dose: 10 mg Rivaroxaban (Xarelto) 15 mg PO DAILY@1700 [facility] PRN Reason: Protocol Last Admin: 01/29/17 16:16 Dose: 15 mg - Labs Labs: 01/30/17 04:30 01/30/17 04:30 PT 11.3 Seconds (9.8-13.1) 01/27/17 05:00 INR 1.0 (0.9-1.2) 01/27/17 05:00 APTT 27.6 Seconds (25.6-37.1) 01/27/17 05:00 - Constitutional Appears: No Acute Distress - Head Exam Head Exam: NORMAL INSPECTION - Eye Exam Eye Exam: Normal appearance - Neck Exam Additional comments: trach collar - Respiratory Exam Respiratory Exam: Decreased Breath Sounds. absent: Accessory Muscle Use, Rhonchi, Wheezes - Cardiovascular Exam Cardiovascular Exam: REGULAR RHYTHM, +S1, +S2 - GI/Abdominal Exam GI & Abdominal Exam: Soft. absent: Tenderness - Neurological Exam Neurological Exam: Alert, Awake, CN II-XII Intact - Skin Skin Exam: Normal Color, Warm Assessment and Plan - Assessment and Plan (Free Text) Assessment: 1) Acute respiratory failure w/ hypercapnia -s/p tracheostomy on 01/27/2017 - ABG: pCO2 54, pO2 76, HCO3 30.6, pH 7.40 - CXR 01/29/2017 s/p trach: improving pulmonary edema, trach placed properly, unresolved pulmonary infiltrates 2) HCAP sputum culture 01/10/2017 grew Staph aureus susceptible to all antibiotics except penicillin - sputum culture 01/16/2017 shows normal oral errol - clindamycin 600 mg IV Q8h day 10 - ID consult appreciated 3) COPD exacerbation - retaining CO2 - Continue with Duoneb Q4 - Start prednislone 10 mg - mucomyst 2 mL BID - c/w duonebs to Q4h - c/w chest PT Q4h s/p duoneb therapy 4) Type 2 DM - Newly diagnosed: 6.9 - on insulin sliding scale 5)Anemia - - repeat Hb 10.6 post trach, minimal blood loss from procedure 6) Chronic Atrial fibrilation -xarelto 15 mg PO - Digoxin .125 mg - Lopresor 12.5 mg PO -cardiac monitoring - 7) Prophylaxis SCD for DVT prophylaxis Pepcid for GI Px Dispo - patient to be downgraded to Tele, transfer orders placed - district manager in training communicates that previous facility, [facility] is willing to take back patient on Thursday02/02/2017
[2017-01-30] MEDS: Digoxin 125 mcg (0.125 mg) Tab PO SCH (16:59)
[2017-01-31] MEDS: Clindamycin 600 MG in Sodium Chloride 0.9% 100 ML IVPB SCH ×3 (00:25→16:24)
[2017-01-31] MEDS: Albuterol-Ipratrop 3 mg / 0.5 (3 ml) UD INH SCH ×6 (04:50→23:27)
[2017-01-31 06:26] LABS: HEMATOCRIT 35.3 % (34.0-47.0); MEAN CELL VOLUME 89.8 fl (81.0-99.0); MEAN CORPUSCULAR HEMOGLOBIN 29.6 pg (27.0-31.0); MEAN CORPUSCULAR HGB CONC 32.9 g/dL (33.0-37.0); RED CELL DISTRIBUTION WIDTH 21.9 % (11.5-14.5); WHITE BLOOD COUNT 6.3 K/uL (4.8-10.8)
[2017-01-31 06:29] LABS: ALB/GLOB RATIO 0.8 (1.0-2.1); ALKALINE PHOSPHATASE 110 U/L (38-126); ALT/SGPT 35 U/L (9-52); AST/SGOT 33 U/L (14-36); BILIRUBIN,TOTAL 0.4 mg/dl (0.2-1.3); BLOOD UREA NITROGEN 26 mg/dl (7-17); CALCIUM 8.9 mg/dL (8.4-10.2); CARBON DIOXIDE 35 mmol/L (22-30); CHLORIDE 96 mmol/L (98-107); GFR AFRICAN-AMERICAN > 60; GLUCOSE,RANDOM 98 mg/dL (65-105); POTASSIUM 4.4 MMOL/L (3.6-5.0); SODIUM 135 mmol/l (132-148); TOTAL PROTEIN 6.5 G/DL (6.3-8.2)
[2017-01-31] MEDS: Insulin Regular 100 units/ml SC SCH ×4 (06:52→23:44)
[2017-01-31] MEDS: Acetylcysteine 10% 4 ML IH SCH ×2 (07:53→19:34)
--- NOTE | 2017-01-31 08:27 | CP.CCUPN ---
CCU Subjective - Physician Review Subjective (Free Text): Awake and responsive this AM, mouthing intelligible words and appropriately responsive, smiles when " food and eating" are discussed. Tracheostomy has facilitated quick MV weans and has been off MV on trach collar over the past 3 days. Mentation has been good as well. Other vitals and I/O's reviewed. She remains in A Fib with controlled VR. ROS: Unobtainable due to intubation. No other pertinent negs or positives on 10 + system review. PMSFH: Recent PEG placement at and discharged from [facility] for severe malnutrition; bed bound, CHF, A Fib, Anemia, Atrial Fibrillation, severe Dementia, Emphysema, HTN, Hypercholesterolemia. All Nursing and physician documentation reviewed to date; no new pertinent info noted relevant to current medical problems. CXR: 01/30 study- persistient Bi- basilar interstitial changes seen ( my interp ). MAJOR PROBLEMS: 1. Acute Hypercarbic Resp Failure, 2 metabolic Encephalopathy, r/o Toxic Drug effects (Cyprohepatadine) versus CHF and Pneumonia 2. Bilateral Pneumonia, suspect aspiration event 3. Azotemia with Dehydration and Hyperkalemia 4. Chronic Disease Anemia, r/o acute GI Blood loss. 5. Paroxsymal A Fib with slow VR, r/o Digoxin / Lopressor effect-Toxicity 6. Transaminitis / Abnormal LFTs-resolved PLAN: 1. Expect continued fine tolerance on trach collar with minimal oxygen requirements despite CXR findings. 2. She may be amenable for return back to [place] facility soon. 3. PT/OT to try to get OOB to a chair if tolerated. 4. Not entirely cleared for PO pleasure feeds. Trach cuff has been deflated for past 24h and will undergo repeat Swallow eval on 02/02. 5. Stable for transfer to [facility]. CCU Objective - Vital Signs / Intake & Output Vital Signs (Last 4 hours): Vital Signs Pulse Resp BP Pulse Ox 01/31/17 06:00 71 19 154/82 H 98 Intake and Output (Last 8hrs): Intake & Output 01/30/17 01/31/17 01/31/17 22:59 06:59 14:59 Intake Total 594 632 Output Total 1710 900 Balance -1116 -268 Weight 94 lb 3.2 oz Intake: IV 14 12 Intake, Piggyback 100 100 Tube Feeding 280 320 Free Water Flush 200 200 Output: Gastric Amount 10 Stomach 10 Urine 1700 900 Urethral (Atkins) 1700 900 Other: # Bowel Movements 1 - Physical Exam Head: Positive for: Normocephalic Pupils: Positive for: PERRL Extroacular Muscles: Positive for: EOMI Conjunctiva: Positive for: Normal. Negative for: Icteric Mouth: Positive for: Moist Mucous Membranes Neck: Positive for: JVD. Negative for: Meningeal Signs Respiratory/Chest: Positive for: Decreased Breath Sounds, Rales, Other (trach in place and secure). Negative for: Accessory Muscle Use, Wheezes Cardiovascular: Positive for: Regular Rate and Rhythm, Other (multiple PVCs). Negative for: Murmurs, Rub Abdomen: Positive for: Normal Bowel Sounds, Other (PEG intact). Negative for: Tenderness, Distention Lower Extremity: Positive for: NORMAL PULSES. Negative for: CALF TENDERNESS, Cyanosis Neurological: Positive for: Other (on blow by O2 30% s/p tracheostomy) Skin: Positive for: Warm. Negative for: Rashes Psychiatric: Positive for: Alert. Negative for: Anxious, Agitated - Medications Active Medications: Active Medications Generic Name Dose Route Start Last Admin Trade Name Freq PRN Reason Stop Dose Admin Acetylcysteine 2 ml 01/20/17 20:00 01/31/17 07:53 Mucomyst 10% 4ml IH 2 ml RBID [facility] Administration Albuterol/Ipratropium 3 ml 01/21/17 12:00 01/31/17 07:54 Duoneb 3 Mg/0.5 Mg (3 Ml) Ud INH 3 ml RQ4 [facility] Administration Amlodipine Besylate 5 mg 01/24/17 12:15 01/30/17 08:53 Norvasc PO 5 mg DAILY [facility] Administration Digoxin 0.125 mg 01/22/17 18:00 01/30/17 16:59 Lanoxin PO 0.125 mg DAILY@1800 [facility] Administration Famotidine 20 mg 01/16/17 21:00 01/30/17 20:17 Pepcid PO 20 mg Q12 [facility] Administration Furosemide 40 mg 01/24/17 16:30 01/30/17 08:52 Lasix IVP 40 mg DAILY [facility] Administration Clindamycin Phosphate 600 mg/ 104 mls @ 104 mls/hr 01/27/17 11:00 01/31/17 00 :25 Sodium Chloride IVPB 104 mls/hr Q8 [facility] Administration Protocol Insulin Human Regular 0 units 01/16/17 11:48 01/31/17 06:52 Humulin R SC Not Given ACCU-CHECK [facility] Protocol Labetalol HCl 100 mg 01/24/17 17:00 01/31/17 00:24 Trandate PO 100 mg Q8 [facility] Administration Lactobacillus Acidophilus 1 cap 01/26/17 09:00 01/30/17 16:57 Bacid Acidophilus PO 1 cap BID [facility] Administration Prednisone 10 mg 01/29/17 09:00 01/30/17 08:53 Prednisone Tab PO 10 mg DAILY [facility] Administration Rivaroxaban 15 mg 01/16/17 17:00 01/30/17 17:00 Xarelto PO 15 mg DAILY@1700 [facility] Administration Protocol - Patient Studies Lab Studies: Lab Studies 01/31/17 01/31/17 01/31/17 Range/Units 05:30 05:30 04:47 WBC 6.3 (4.8-10.8) K/uL RBC 3.93 (3.80-5.20) Mil/uL Hgb 11.6 L (12.0-16.0) g/dL Hct 35.3 (34.0-47.0) % MCV 89.8 (81.0-99.0) fl MCH 29.6 (27.0-31.0) pg MCHC 32.9 L (33.0-37.0) g/dL RDW 21.9 H (11.5-14.5) % Plt Count 211 (130-400) K/uL Sodium 135 (132-148) mmol/l Potassium 4.4 (3.6-5.0) MMOL/L Chloride 96 L (98-107) mmol/L Carbon Dioxide 35 H (22-30) mmol/L Anion Gap 8 L (10-20) BUN 26 H (7-17) mg/dl Creatinine 0.8 (0.7-1.2) mg/dL Est GFR ( Amer) > 60 Est GFR (Non-Af Amer) > 60 POC Glucose (mg/dL) 97 (65-110) mg/dL Random Glucose 98 (65-105) mg/dL Calcium 8.9 (8.4-10.2) mg/dL Total Bilirubin 0.4 (0.2-1.3) mg/dl AST 33 (14-36) U/L ALT 35 (9-52) U/L Alkaline Phosphatase 110 (38-126) U/L Total Protein 6.5 (6.3-8.2) G/DL Albumin 2.9 L (3.5-5.0) g/dL Globulin 3.6 (2.2-3.9) gm/dL Albumin/Globulin Ratio 0.8 L (1.0-2.1) 01/30/17 01/30/17 01/30/17 Range/Units 22:04 15:58 11:54 WBC (4.8-10.8) K/uL RBC (3.80-5.20) Mil/uL Hgb (12.0-16.0) g/dL Hct (34.0-47.0) % MCV (81.0-99.0) fl MCH (27.0-31.0) pg MCHC (33.0-37.0) g/dL RDW (11.5-14.5) % Plt Count (130-400) K/uL Sodium (132-148) mmol/l Potassium (3.6-5.0) MMOL/L Chloride (98-107) mmol/L Carbon Dioxide (22-30) mmol/L Anion Gap (10-20) BUN (7-17) mg/dl Creatinine (0.7-1.2) mg/dL Est GFR ( Amer) Est GFR (Non-Af Amer) POC Glucose (mg/dL) 102 192 H 103 (65-110) mg/dL Random Glucose (65-105) mg/dL Calcium (8.4-10.2) mg/dL Total Bilirubin (0.2-1.3) mg/dl AST (14-36) U/L ALT (9-52) U/L Alkaline Phosphatase (38-126) U/L Total Protein (6.3-8.2) G/DL Albumin (3.5-5.0) g/dL Globulin (2.2-3.9) gm/dL Albumin/Globulin Ratio (1.0-2.1) Laboratory Results - last 24 hr 01/30/17 01/30/17 01/30/17 11:54 15:58 22:04 WBC RBC Hgb Hct MCV MCH MCHC RDW Plt Count Sodium Potassium Chloride Carbon Dioxide Anion Gap BUN Creatinine Est GFR ( Amer) Est GFR (Non-Af Amer) POC Glucose (mg/dL) 103 192 H 102 Random Glucose Calcium Total Bilirubin AST ALT Alkaline Phosphatase Total Protein Albumin Globulin Albumin/Globulin Ratio 01/31/17 01/31/17 01/31/17 04:47 05:30 05:30 WBC 6.3 RBC 3.93 Hgb 11.6 L Hct 35.3 MCV 89.8 MCH 29.6 MCHC 32.9 L RDW 21.9 H Plt Count 211 Sodium 135 Potassium 4.4 Chloride 96 L Carbon Dioxide 35 H Anion Gap 8 L BUN 26 H Creatinine 0.8 Est GFR ( Amer) > 60 Est GFR (Non-Af Amer) > 60 POC Glucose (mg/dL) 97 Random Glucose 98 Calcium 8.9 Total Bilirubin 0.4 AST 33 ALT 35 Alkaline Phosphatase 110 Total Protein 6.5 Albumin 2.9 L Globulin 3.6 Albumin/Globulin Ratio 0.8 L Fingerstick Blood Sugar Results: 97 Review of Systems - Review of Systems All systems: reviewed and no additional remarkable complaints except (as above.) Critical Care Progress Note - Extremities/Vascular Does the Patient have a Central Venous Catheter?: No Does the Patient need a Central Venous Catheter?: No Does the Patient have a Atkins Catheter?: Yes Does the Patient need a Atkins Catheter?: Yes Catheter Insertion Criteria: Patient requires prolonged immobilization - Prophylaxis GI Prophylaxis GI: PPI - Prophylaxis DVT Prophylaxis DVT: Heparin SQ - Nutrition Nutrition: Nutrition Category Date Time Status NPO Diet [DIET] Diets 01/27/17 Breakfast Active
[2017-01-31] MEDS: Lactobacillus Acidophilus 500 MU Cap PO SCH ×2 (08:43→16:24)
--- NOTE | 2017-01-31 10:28 | CP.PCM.PN ---
Subjective - Date & Time of Evaluation Date of Evaluation: 01/31/17 Time of Evaluation: 10:28 - Subjective Subjective: Patient remains stable Has no fever. Objective - Vital Signs/Intake and Output Vital Signs (last 24 hours): Temp Pulse Resp BP Pulse Ox 98.2 F 79 29 H 152/88 H 98 01/31/17 08:00 01/31/17 08:46 01/31/17 08:00 01/31/17 08:46 01/31/17 08:00 Intake and Output: 01/31/17 01/31/17 06:59 18:59 Intake Total 866 100 Output Total 910 Balance -44 100 - Medications Medications: Current Medications Acetylcysteine (Mucomyst 10% 4ml) 2 ml IH RBID [facility] Last Admin: 01/31/17 07:53 Dose: 2 ml Albuterol/Ipratropium (Duoneb 3 Mg/0.5 Mg (3 Ml) Ud) 3 ml INH RQ4 [facility] Last Admin: 01/31/17 07:54 Dose: 3 ml Amlodipine Besylate (Norvasc) 5 mg PO DAILY [facility] Last Admin: 01/31/17 08:46 Dose: 5 mg Digoxin (Lanoxin) 0.125 mg PO DAILY@1800 [facility] Last Admin: 01/30/17 16:59 Dose: 0.125 mg Famotidine (Pepcid) 20 mg PO Q12 [facility] Last Admin: 01/31/17 08:46 Dose: 20 mg Furosemide (Lasix) 40 mg IVP DAILY [facility] Last Admin: 01/31/17 08:45 Dose: 40 mg Clindamycin Phosphate 600 mg/ (Sodium Chloride) 104 mls @ 104 mls/hr IVPB Q8 [facility] PRN Reason: Protocol Last Admin: 01/31/17 08:44 Dose: 104 mls/hr Insulin Human Regular (Humulin R) 0 units SC ACCU-CHECK [facility] PRN Reason: Protocol Last Admin: 01/31/17 06:52 Dose: Not Given Labetalol HCl (Trandate) 100 mg PO Q8 [facility] Last Admin: 01/31/17 08:46 Dose: 100 mg Lactobacillus Acidophilus (Bacid Acidophilus) 1 cap PO BID [facility] Last Admin: 01/31/17 08:43 Dose: 1 cap Prednisone (Prednisone Tab) 10 mg PO DAILY [facility] Last Admin: 01/31/17 08:46 Dose: 10 mg Rivaroxaban (Xarelto) 15 mg PO DAILY@1700 [facility] PRN Reason: Protocol Last Admin: 01/30/17 17:00 Dose: 15 mg - Labs Labs: 01/31/17 05:30 01/31/17 05:30 PT 11.3 Seconds (9.8-13.1) 01/27/17 05:00 INR 1.0 (0.9-1.2) 01/27/17 05:00 APTT 27.6 Seconds (25.6-37.1) 01/27/17 05:00
[2017-01-31] MEDS: Digoxin 125 mcg (0.125 mg) Tab PO SCH (17:05)
[2017-02-01] MEDS: Clindamycin 600 MG in Sodium Chloride 0.9% 100 ML IVPB SCH ×3 (00:04→16:26)
[2017-02-01] MEDS: Albuterol-Ipratrop 3 mg / 0.5 (3 ml) UD INH SCH ×5 (03:06→19:58)
[2017-02-01] MEDS: Insulin Regular 100 units/ml SC SCH ×4 (06:32→23:21)
--- NOTE | 2017-02-01 07:01 | CP.CCUPN ---
CCU Subjective - Physician Review Subjective (Free Text): Awake and responsive this AM, does not appear agitated now, had been pulling sheets off the bed and trying to get OOB, off 1:1 supervision now. Has self- removed peripheral IVs multiple times now. Tracheostomy facilitated quick MV weans and has been on trach collar over the past 4 days. Other vitals and I/O's reviewed. She remains in A Fib with controlled VR. ROS: Essentially nods head in "no" fashion to questions. No other pertinent negs or positives on 10+ system review. PMSFH: Recent PEG placement at and discharged from [facility] for severe malnutrition; bed bound, CHF, A Fib, Anemia, Atrial Fibrillation, severe Dementia, Emphysema, HTN, Hypercholesterolemia. All Nursing and physician documentation reviewed to date; no new pertinent info noted relevant to current medical problems. CXR: 01/30 study- persistient Bi- basilar interstitial changes seen ( my interp ). MAJOR PROBLEMS: 1. Acute Hypercarbic Resp Failure, 2 metabolic Encephalopathy, r/o Toxic Drug effects (Cyprohepatadine) versus CHF and Pneumonia 2. Bilateral Pneumonia, suspect aspiration event 3. Azotemia with Dehydration and Hyperkalemia 4. Chronic Disease Anemia, r/o acute GI Blood loss. 5. Paroxsymal A Fib with slow VR, r/o Digoxin / Lopressor effect-Toxicity 6. Transaminitis / Abnormal LFTs-resolved PLAN: 1. Excellent tolerance on Trach collar woth low fiO2 requirements. 2. She may be amenable for return back to [place] facility soon. 3. PT/OT to try to get OOB to a chair if tolerated. 4. Not entirely cleared for PO pleasure feeds. Trach cuff has been deflated for past 24h and will undergo repeat Swallow eval on 02/02. 5. Stable for transfer to [facility]. CCU Objective - Vital Signs / Intake & Output Vital Signs (Last 4 hours): Vital Signs Pulse Resp BP Pulse Ox 02/01/17 04:01 77 12 153/97 H 98 Intake and Output (Last 8hrs): Intake & Output 01/31/17 01/31/17 02/01/17 14:59 22:59 06:59 Intake Total 300 964 520 Output Total 1999 1650 Balance 300 1036 -1130 Intake: IV 24 Intake, Piggyback 100 100 Tube Feeding 640 320 Free Water Flush 200 200 200 Output: Urine 2000 1650 Urethral (Atknis) 1999 1650 Other: # Bowel Movements 1 - Physical Exam Head: Positive for: Normocephalic Pupils: Positive for: PERRL Extroacular Muscles: Positive for: EOMI Conjunctiva: Positive for: Normal. Negative for: Icteric Mouth: Positive for: Moist Mucous Membranes Neck: Positive for: JVD. Negative for: Meningeal Signs Respiratory/Chest: Positive for: Decreased Breath Sounds, Rales, Other (trach in place and secure). Negative for: Accessory Muscle Use, Wheezes Cardiovascular: Positive for: Regular Rate and Rhythm, Other (multiple PVCs). Negative for: Murmurs, Rub Abdomen: Positive for: Normal Bowel Sounds, Other (PEG intact). Negative for: Tenderness, Distention Lower Extremity: Positive for: Edema, NORMAL PULSES. Negative for: CALF TENDERNESS, Cyanosis Neurological: Positive for: GCS=15, Motor Func Grossly Intact, Other (on blow by O2 30% s/p tracheostomy) Skin: Positive for: Warm. Negative for: Rashes Psychiatric: Positive for: Alert. Negative for: Anxious, Agitated - Medications Active Medications: Active Medications Generic Name Dose Route Start Last Admin Trade Name Freq PRN Reason Stop Dose Admin Acetylcysteine 2 ml 01/20/17 20:00 01/31/17 19:34 Mucomyst 10% 4ml IH 2 ml RBID [facility] Administration Albuterol/Ipratropium 3 ml 01/21/17 12:00 02/01/17 03:06 Duoneb 3 Mg/0.5 Mg (3 Ml) Ud INH 3 ml RQ4 [facility] Administration Amlodipine Besylate 5 mg 01/24/17 12:15 01/31/17 08:46 Norvasc PO 5 mg DAILY [facility] Administration Digoxin 0.125 mg 01/22/17 18:00 01/31/17 17:05 Lanoxin PO 0.125 mg DAILY@1800 [facility] Administration Famotidine 20 mg 01/16/17 21:00 01/31/17 20:28 Pepcid PO 20 mg Q12 [facility] Administration Furosemide 40 mg 01/24/17 16:30 01/31/17 08:45 Lasix IVP 40 mg DAILY [facility] Administration Clindamycin Phosphate 600 mg/ 104 mls @ 104 mls/hr 01/27/17 11:00 02/01/17 00 :04 Sodium Chloride IVPB 104 mls/hr Q8 [facility] Administration Protocol Insulin Human Regular 0 units 01/16/17 11:48 02/01/17 06:32 Humulin R SC Not Given ACCU-CHECK [facility] Protocol Labetalol HCl 100 mg 01/24/17 17:00 02/01/17 00:02 Trandate PO 100 mg Q8 [facility] Administration Lactobacillus Acidophilus 1 cap 01/26/17 09:00 01/31/17 16:24 Bacid Acidophilus PO 1 cap BID [facility] Administration Prednisone 10 mg 01/29/17 09:00 01/31/17 08:46 Prednisone Tab PO 10 mg DAILY [facility] Administration Rivaroxaban 15 mg 01/16/17 17:00 01/31/17 16:27 Xarelto PO 15 mg DAILY@1700 [facility] Administration Protocol - Patient Studies Lab Studies: Microbiology Studies 01/29/17 Unknown Sputum Culture - Preliminary Trachasp Gram Negative Giovanni Lab Studies 02/01/17 01/31/17 01/31/17 Range/Units 06:28 22:38 16:11 POC Glucose (mg/dL) 85 83 152 H (65-110) mg/dL 01/31/17 Range/Units 11:59 POC Glucose (mg/dL) 167 H (65-110) mg/dL Laboratory Results - last 24 hr 01/31/17 01/31/17 01/31/17 11:59 16:11 22:38 POC Glucose (mg/dL) 167 H 152 H 83 02/01/17 06:28 POC Glucose (mg/dL) 85 Fingerstick Blood Sugar Results: 85 Review of Systems - Review of Systems All systems: reviewed and no additional remarkable complaints except (as above) Critical Care Progress Note - Nutrition Nutrition: Nutrition Category Date Time Status NPO Diet [DIET] Diets 01/27/17 Breakfast Active
[2017-02-01] MEDS: Acetylcysteine 10% 4 ML IH SCH ×2 (07:04→19:58)
[2017-02-01] MEDS: Lactobacillus Acidophilus 500 MU Cap PO SCH ×2 (08:49→16:25)
--- NOTE | 2017-02-01 13:19 | CP.PCM.PN ---
Subjective - Date & Time of Evaluation Date of Evaluation: 02/01/17 Time of Evaluation: 13:18 - Subjective Subjective: Patient remains stable. Objective - Vital Signs/Intake and Output Vital Signs (last 24 hours): Temp Pulse Resp BP Pulse Ox 97.7 F 82 21 144/85 98 02/01/17 12:00 02/01/17 12:00 02/01/17 12:00 02/01/17 12:00 02/01/17 12:00 Intake and Output: 02/01/17 02/01/17 06:59 18:59 Intake Total 780 320 Output Total 1650 Balance -870 320 - Medications Medications: Current Medications Acetylcysteine (Mucomyst 10% 4ml) 2 ml IH RBID [facility] Last Admin: 02/01/17 07:04 Dose: 2 ml Albuterol/Ipratropium (Duoneb 3 Mg/0.5 Mg (3 Ml) Ud) 3 ml INH RQ4 [facility] Last Admin: 02/01/17 11:00 Dose: 3 ml Amlodipine Besylate (Norvasc) 5 mg PO DAILY [facility] Last Admin: 02/01/17 08:51 Dose: 5 mg Digoxin (Lanoxin) 0.125 mg PO DAILY@1800 [facility] Last Admin: 01/31/17 17:05 Dose: 0.125 mg Famotidine (Pepcid) 20 mg PO Q12 [facility] Last Admin: 02/01/17 08:50 Dose: 20 mg Furosemide (Lasix) 40 mg IVP DAILY [facility] Last Admin: 02/01/17 08:56 Dose: 40 mg Clindamycin Phosphate 600 mg/ (Sodium Chloride) 104 mls @ 104 mls/hr IVPB Q8 [facility] PRN Reason: Protocol Last Admin: 02/01/17 08:52 Dose: 104 mls/hr Insulin Human Regular (Humulin R) 0 units SC ACCU-CHECK [facility] PRN Reason: Protocol Last Admin: 02/01/17 11:25 Dose: Not Given Labetalol HCl (Trandate) 100 mg PO Q8 [facility] Last Admin: 02/01/17 08:49 Dose: 100 mg Lactobacillus Acidophilus (Bacid Acidophilus) 1 cap PO BID [facility] Last Admin: 02/01/17 08:49 Dose: 1 cap Prednisone (Prednisone Tab) 10 mg PO DAILY [facility] Last Admin: 02/01/17 08:50 Dose: 10 mg Rivaroxaban (Xarelto) 15 mg PO DAILY@1700 [facility] PRN Reason: Protocol Last Admin: 01/31/17 16:27 Dose: 15 mg - Labs Labs: 01/31/17 05:30 01/31/17 05:30 PT 11.3 Seconds (9.8-13.1) 01/27/17 05:00 INR 1.0 (0.9-1.2) 01/27/17 05:00 APTT 27.6 Seconds (25.6-37.1) 01/27/17 05:00
[2017-02-01] MEDS: Digoxin 125 mcg (0.125 mg) Tab PO SCH (17:09)
[2017-02-02] MEDS: Albuterol-Ipratrop 3 mg / 0.5 (3 ml) UD INH SCH ×7 (00:04→23:45)
[2017-02-02] MEDS: Clindamycin 600 MG in Sodium Chloride 0.9% 100 ML IVPB SCH ×4 (01:06→17:30)
[2017-02-02] MEDS: Acetylcysteine 10% 4 ML IH SCH ×2 (08:52→19:41)
[2017-02-02] MEDS: Insulin Regular 100 units/ml SC SCH ×4 (08:53→22:28)
[2017-02-02] MEDS: Lactobacillus Acidophilus 500 MU Cap PO SCH ×2 (09:07→17:49)
[2017-02-02] MEDS ORDERED: Clindamycin 600 MG in Sodium Chloride 0.9% 100 ML IVPB SCH (12:30)
--- NOTE | 2017-02-02 13:49 | RAD ---
HISTORY: F/U [facility] COMPARISON: 01/30/2017 FINDINGS: LUNGS: No change in bilateral infiltrates. PLEURA: No significant pleural effusion identified, no pneumothorax apparent. CARDIOVASCULAR: Mild cardiomegaly OSSEOUS STRUCTURES: No significant abnormalities. VISUALIZED UPPER ABDOMEN: Normal. OTHER FINDINGS: None. IMPRESSION: No change in bilateral infiltrates
[2017-02-02] MEDS: Digoxin 125 mcg (0.125 mg) Tab PO SCH (20:04)
[2017-02-03] MEDS: Clindamycin 600 MG in Sodium Chloride 0.9% 100 ML IVPB SCH ×3 (00:39→17:17)
[2017-02-03] MEDS: Albuterol-Ipratrop 3 mg / 0.5 (3 ml) UD INH SCH ×5 (05:00→19:27)
[2017-02-03] MEDS: Insulin Regular 100 units/ml SC SCH ×4 (06:11→22:04)
[2017-02-03] MEDS: Acetylcysteine 10% 4 ML IH SCH ×2 (07:52→19:27)
[2017-02-03] MEDS: Lactobacillus Acidophilus 500 MU Cap PO SCH ×2 (10:35→17:24)
[2017-02-03 12:17] LABS: HEMATOCRIT 34.7 % (34.0-47.0); MEAN CELL VOLUME 89.5 fl (81.0-99.0); MEAN CORPUSCULAR HEMOGLOBIN 29.8 pg (27.0-31.0); MEAN CORPUSCULAR HGB CONC 33.3 g/dL (33.0-37.0); RED CELL DISTRIBUTION WIDTH 21.4 % (11.5-14.5); WHITE BLOOD COUNT 5.9 K/uL (4.8-10.8)
[2017-02-03 12:43] LABS: BLOOD UREA NITROGEN 29 mg/dl (7-17); CALCIUM 8.8 mg/dL (8.4-10.2); CARBON DIOXIDE 35 mmol/L (22-30); CHLORIDE 91 mmol/L (98-107); GFR AFRICAN-AMERICAN > 60; GLUCOSE,RANDOM 137 mg/dL (65-105); SODIUM 132 mmol/l (132-148)
[2017-02-03 13:11] LABS: POTASSIUM 4.8 MMOL/L (3.6-5.0)
--- NOTE | 2017-02-03 13:32 | CP.PCM.PN ---
Subjective - Date & Time of Evaluation Date of Evaluation: 02/03/17 Time of Evaluation: 07:00 - Subjective Subjective: PAtient was seen and examined with Dr. Templeton. Patient appears to be doing well. Responds to verbal command. Nods and makes eye contact when asked questions. No overnight events reported. Objective - Vital Signs/Intake and Output Vital Signs (last 24 hours): Temp Pulse Resp BP Pulse Ox 97.4 F L 74 20 149/82 99 02/03/17 12:00 02/03/17 12:00 02/03/17 12:00 02/03/17 12:00 02/03/17 12:00 Intake and Output: 02/03/17 02/03/17 06:59 18:59 Intake Total 1668 Output Total 1450 Balance 218 - Medications Medications: Current Medications Acetylcysteine (Mucomyst 10% 4ml) 2 ml IH RBID [facility] Last Admin: 02/03/17 07:52 Dose: 2 ml Albuterol/Ipratropium (Duoneb 3 Mg/0.5 Mg (3 Ml) Ud) 3 ml INH RQ4 [facility] Last Admin: 02/03/17 11:24 Dose: 3 ml Amlodipine Besylate (Norvasc) 5 mg PO DAILY [facility] Last Admin: 02/03/17 09:37 Dose: Not Given Digoxin (Lanoxin) 0.125 mg PO DAILY@1800 [facility] Last Admin: 02/02/17 20:04 Dose: 0.125 mg Famotidine (Pepcid) 20 mg PO Q12 [facility] Last Admin: 02/03/17 10:36 Dose: Not Given Furosemide (Lasix) 40 mg IVP DAILY [facility] Last Admin: 02/03/17 09:12 Dose: 40 mg Clindamycin Phosphate 600 mg/ (Sodium Chloride) 104 mls @ 96.296 mls/hr IVPB Q8 [facility] PRN Reason: Protocol Last Admin: 02/03/17 09:11 Dose: 96.296 mls/hr Insulin Human Regular (Humulin R) 0 units SC ACCU-CHECK [facility] PRN Reason: Protocol Last Admin: 02/03/17 06:11 Dose: Not Given Labetalol HCl (Trandate) 100 mg PO Q8 [facility] Last Admin: 02/03/17 09:37 Dose: Not Given Lactobacillus Acidophilus (Bacid Acidophilus) 1 cap PO BID [facility] Last Admin: 02/03/17 10:35 Dose: Not Given Prednisone (Prednisone Tab) 10 mg PO DAILY [facility] Last Admin: 02/03/17 10:36 Dose: Not Given Rivaroxaban (Xarelto) 15 mg PO DAILY@1700 [facility] PRN Reason: Protocol Last Admin: 02/02/17 17:48 Dose: 15 mg - Labs Labs: 02/03/17 12:00 02/03/17 12:00 PT 11.3 Seconds (9.8-13.1) 01/27/17 05:00 INR 1.0 (0.9-1.2) 01/27/17 05:00 APTT 27.6 Seconds (25.6-37.1) 01/27/17 05:00 - Constitutional Appears: No Acute Distress - Head Exam Head Exam: NORMAL INSPECTION - Neck Exam Additional comments: trach collar noted - Respiratory Exam Respiratory Exam: Decreased Breath Sounds, NORMAL BREATHING PATTERN - Cardiovascular Exam Cardiovascular Exam: REGULAR RHYTHM, +S1, +S2 - GI/Abdominal Exam GI & Abdominal Exam: Soft. absent: Tenderness - Neurological Exam Neurological Exam: Alert, Awake Assessment and Plan - Assessment and Plan (Free Text) Assessment: 1) Acute respiratory failure w/ hypercapnia -s/p tracheostomy on 01/27/2017 - CXR 01/29/2017 s/p trach: improving pulmonary edema, trach placed properly, unresolved pulmonary infiltrates 2) HCAP sputum culture 01/10/2017 grew Staph aureus susceptible to all antibiotics except penicillin - sputum culture 01/16/2017 shows normal oral errol - clindamycin 600 mg IV Q8h day 14 - X ray from 02/02/17: shows no change in b/l infiltrate. WBC: 5.9 - ID consult appreciated 3) COPD exacerbation ( controlled) - Continue with Duoneb Q4 - Start prednislone 10 mg - mucomyst 2 mL BID - c/w duonebs to Q4h - c/w chest PT Q4h s/p duoneb therapy 4) Type 2 DM - Newly diagnosed: 6.9 - on insulin sliding scale 5)Anemia - - Hb:11.5 stable 6) Chronic Atrial fibrilation -xarelto 15 mg PO - Digoxin .125 mg - Lopresor 12.5 mg PO -cardiac monitoring - 7) Prophylaxis SCD for DVT prophylaxis Pepcid for GI Px Dispo - Have D/C 1:1 today - nurse unit manager communicates that previous facility, [facility] is willing to take back. Will possibly discharge tomorrow.
--- NOTE | 2017-02-03 13:47 | CP.PCM.CON ---
History of Present Illness - History of Present Illness History of Present Illness: Psychiatry Consult CC: "I don't know why they called you." HPI: 71 yo female w/ unknown past psychiatric history, currently w/ acute hypercarbic resp failure, secondary metabolic encephalopathy, bilateral PNA, does not know why the psychiatry consult was called and denied psychiatric complaints. Denied depression/anxiety/psychosis/SI/HI. Patient was difficult to interview due to inability to talk. Custodian Supervisor spoke to the patient and she wrote down answers. Medical issues: 1. Acute Hypercarbic Resp Failure, 2 metabolic Encephalopathy, r/o Toxic Drug effects (Cyprohepatadine) versus CHF and Pneumonia 2. Bilateral Pneumonia, suspect aspiration event 3. Azotemia with Dehydration and Hyperkalemia 4. Chronic Disease Anemia, r/o acute GI Blood loss. 5. Paroxsymal A Fib with slow VR, r/o Digoxin / Lopressor effect-Toxicity 6. Transaminitis / Abnormal LFTs-resolved PPHx: No known past psychiatric history ALL: NKDA Impression: 71 yo female, denied acute psychiatric complaints. -No acute psychiatric admission or medications indicated Past Patient History - Infectious Disease Hx of Infectious Diseases: None - Tetanus Immunizations Tetanus Immunization: Unknown - Past Medical History & Family History Past Medical History?: Yes - Past Social History Smoking Status: unknown - CARDIAC Hx Atrial Fibrillation: Yes Hx Cardia Arrhythmia: Yes Hx Congestive Heart Failure: Yes Hx Hypercholesterolemia: Yes Hx Hypertension: Yes - PULMONARY Hx Asthma: No Hx Chronic Obstructive Pulmonary Disease (COPD): No Hx Emphysema: Yes - NEUROLOGICAL Hx Dementia: Yes - HEENT Hx HEENT Problems: Yes Hx Cataracts: Yes (both eyes) - RENAL Hx Chronic Kidney Disease: No - ENDOCRINE/METABOLIC Hx Endocrine Disorders: No - HEMATOLOGICAL/ONCOLOGICAL Hx Anemia: Yes - INTEGUMENTARY Hx Dermatological Problems: No - MUSCULOSKELETAL/RHEUMATOLOGICAL Hx Musculoskeletal Disorders: Yes Hx Falls: No (unknown) Hx Unsteady Gait: Yes - GASTROINTESTINAL Hx Gastrointestinal Disorders: Yes Other/Comment: patient is very anorectic. >with PEG - GENITOURINARY/GYNECOLOGICAL Hx Genitourinary Disorders: No - PSYCHIATRIC Hx Psychophysiologic Disorder: No Hx Substance Use: (unknown) - SURGICAL HISTORY Hx Surgeries: Yes Hx Cataract Extraction: Yes (2013) Hx Eye Surgery: Yes - ANESTHESIA Hx Anesthesia: Yes Hx Anesthesia Reactions: No Hx Malignant Hyperthermia: No Meds Allergies/Adverse Reactions: Allergies Allergy/AdvReac Type Severity Reaction Status Date / Time No Known Allergies Allergy Verified 12/16/16 15:11 - Medications Medications: Current Medications Acetylcysteine (Mucomyst 10% 4ml) 2 ml IH RBID [facility] Last Admin: 02/03/17 07:52 Dose: 2 ml Albuterol/Ipratropium (Duoneb 3 Mg/0.5 Mg (3 Ml) Ud) 3 ml INH RQ4 [facility] Last Admin: 02/03/17 11:24 Dose: 3 ml Amlodipine Besylate (Norvasc) 5 mg PO DAILY [facility] Last Admin: 02/03/17 09:37 Dose: Not Given Digoxin (Lanoxin) 0.125 mg PO DAILY@1800 [facility] Last Admin: 02/02/17 20:04 Dose: 0.125 mg Famotidine (Pepcid) 20 mg PO Q12 [facility] Last Admin: 02/03/17 10:36 Dose: Not Given Furosemide (Lasix) 40 mg IVP DAILY [facility] Last Admin: 02/03/17 09:12 Dose: 40 mg Clindamycin Phosphate 600 mg/ (Sodium Chloride) 104 mls @ 96.296 mls/hr IVPB Q8 [facility] PRN Reason: Protocol Last Admin: 02/03/17 09:11 Dose: 96.296 mls/hr Insulin Human Regular (Humulin R) 0 units SC ACCU-CHECK [facility] PRN Reason: Protocol Last Admin: 02/03/17 06:11 Dose: Not Given Labetalol HCl (Trandate) 100 mg PO Q8 [facility] Last Admin: 02/03/17 09:37 Dose: Not Given Lactobacillus Acidophilus (Bacid Acidophilus) 1 cap PO BID [facility] Last Admin: 02/03/17 10:35 Dose: Not Given Prednisone (Prednisone Tab) 10 mg PO DAILY [facility] Last Admin: 02/03/17 10:36 Dose: Not Given Rivaroxaban (Xarelto) 15 mg PO DAILY@1700 [facility] PRN Reason: Protocol Last Admin: 02/02/17 17:48 Dose: 15 mg Results - Vital Signs Recent Vital Signs: Last Vital Signs Temp 97.4 F L 02/03/17 12:00 Pulse 74 02/03/17 12:00 Resp 20 02/03/17 12:00 BP 149/82 02/03/17 12:00 Pulse Ox 99 02/03/17 12:00 - Labs Result Diagrams: 02/03/17 12:00 02/03/17 12:00 Labs: Laboratory Results - last 24 hr 02/02/17 02/02/17 02/03/17 15:56 21:06 05:28 WBC RBC Hgb Hct MCV MCH MCHC RDW Plt Count Sodium Potassium Chloride Carbon Dioxide Anion Gap BUN Creatinine Est GFR ( Amer) Est GFR (Non-Af Amer) POC Glucose (mg/dL) 146 H 162 H 118 H Random Glucose Calcium 02/03/17 02/03/17 02/03/17 10:29 12:00 12:00 WBC 5.9 RBC 3.88 Hgb 11.5 L Hct 34.7 MCV 89.5 MCH 29.8 MCHC 33.3 RDW 21.4 H Plt Count 153 Sodium 132 Potassium 4.8 Chloride 91 L Carbon Dioxide 35 H Anion Gap 11 BUN 29 H Creatinine 0.6 L Est GFR ( Amer) > 60 Est GFR (Non-Af Amer) > 60 POC Glucose (mg/dL) 75 Random Glucose 137 H Calcium 8.8
[2017-02-03] MEDS: Digoxin 125 mcg (0.125 mg) Tab PO SCH (21:22)
[2017-02-04] MEDS: Albuterol-Ipratrop 3 mg / 0.5 (3 ml) UD INH SCH ×6 (00:30→19:10)
[2017-02-04] MEDS: Clindamycin 600 MG in Sodium Chloride 0.9% 100 ML IVPB SCH ×3 (01:51→17:40)
[2017-02-04] MEDS: Insulin Regular 100 units/ml SC SCH ×4 (08:07→22:38)
[2017-02-04] MEDS: Acetylcysteine 10% 4 ML IH SCH ×2 (08:25→19:10)
[2017-02-04] MEDS: Lactobacillus Acidophilus 500 MU Cap PO SCH ×2 (09:30→18:10)
--- NOTE | 2017-02-04 13:38 | CP.PCM.PCO ---
Assessment & Plan - Assessment and Plan (Free Text) Assessment: pt. doing well; sitting up in bed. Afebrile VSS chest xray; no changes above discussed with , Dr. Mosqueda pt. completed tx of IV Abx-d/w dr. Mosqueda pt. cleared for discharge to [facility] today under cont. trach care , TF via Peg
--- NOTE | 2017-02-04 15:58 | CP.PCM.DIS ---
Provider - Provider Date of Admission: 01/09/17 17:25 Attending physician: Nura Templeton MD Time Spent in preparation of Discharge (in minutes): 30 Diagnosis - Discharge Diagnosis (1) Acute respiratory failure with hypercapnia Status: Acute Hospital Course - Lab Results Lab Results: Micro Results 02/02/17 07:02 Naris MRSA Culture (Admit) - Final MRSA NOT DETECTED 01/29/17 Unknown Trachasp Gram Stain - Final 01/29/17 Unknown Trachasp Sputum Culture - Final Stenotrophomonas Maltophilia 01/16/17 14:00 Trachasp Gram Stain - Final 01/16/17 14:00 Trachasp Sputum Culture - Final NORMAL ORAL ERROL 01/09/17 16:20 Blood-Venous Blood Culture - Final NO GROWTH AFTER 5 DAYS 01/09/17 16:20 Blood-Venous Gram Stain - Final TEST NOT PERFORMED 01/10/17 09:40 Trachasp Gram Stain - Final 01/10/17 09:40 Trachasp Sputum Culture - Final Staphylococcus Aureus 01/09/17 09:40 Nose MRSA Culture (Admit) - Final MRSA NOT DETECTED 01/09/17 16:38 Urine,Atkins Urine Culture - Final No Growth (<1,000 CFU/ML) Most Recent Lab Values WBC 5.9 K/uL (4.8-10.8) 02/03/17 12:00 RBC 3.88 Mil/uL (3.80-5.20) 02/03/17 12:00 Hgb 11.5 g/dL (12.0-16.0) L 02/03/17 12:00 Hct 34.7 % (34.0-47.0) 02/03/17 12:00 MCV 89.5 fl (81.0-99.0) 02/03/17 12:00 MCH 29.8 pg (27.0-31.0) 02/03/17 12:00 MCHC 33.3 g/dL (33.0-37.0) 02/03/17 12:00 RDW 21.4 % (11.5-14.5) H 02/03/17 12:00 Plt Count 153 K/uL (130-400) 02/03/17 12:00 MPV 8.2 fl (7.2-11.7) 01/28/17 04:30 Neut % (Auto) 91.6 % (50.0-75.0) H 01/28/17 04:30 Lymph % (Auto) 4.2 % (20.0-40.0) L 01/28/17 04:30 Grundy % (Auto) 4.0 % (0.0-10.0) 01/28/17 04:30 Eos % (Auto) 0.1 % (0.0-4.0) 01/28/17 04:30 Baso % (Auto) 0.1 % (0.0-2.0) 01/28/17 04:30 Neut # 6.7 K/uL (1.8-7.0) 01/28/17 04:30 Lymph # 0.3 K/uL (1.0-4.3) L 01/28/17 04:30 Grundy # 0.3 K/uL (0.0-0.8) 01/28/17 04:30 Eos # 0.0 K/uL (0.0-0.7) 01/28/17 04:30 Baso # 0.0 K/uL (0.0-0.2) 01/28/17 04:30 Neutrophils % (Manual) 93 % (42-75) H 01/28/17 04:30 Band Neutrophils % 2 % (0-2) 01/10/17 05:30 Lymphocytes % (Manual) 5 % (20-50) L 01/28/17 04:30 Monocytes % (Manual) 2 % (0-10) 01/28/17 04:30 Myelocytes % 1 % (0-0) H 01/21/17 04:15 Toxic Granulation Present 01/21/17 04:15 Platelet Estimate Normal (NORMAL) 01/28/17 04:30 Plt Clumps, EDTA Present 01/22/17 04:20 Large Platelets Present 01/21/17 04:15 RBC Morphology Normal (NORMAL) 01/28/17 04:30 Hypochromasia (manual) Moderate 01/22/17 04:20 Anisocytosis (manual) Moderate 01/22/17 04:20 Tear Drop Cells Slight 01/22/17 04:20 Ovalocytes Slight 01/22/17 04:20 Marquez Cells Slight 01/22/17 04:20 Schistocytes Slight 01/22/17 04:20 PT 11.3 Seconds (9.8-13.1) 01/27/17 05:00 INR 1.0 (0.9-1.2) 01/27/17 05:00 APTT 27.6 Seconds (25.6-37.1) 01/27/17 05:00 pCO2 54 mm/Hg (35-45) H 01/30/17 05:16 pO2 76 mm/Hg (80-100) L 01/30/17 05:16 HCO3 30.6 mmol/L (21-28) H 01/30/17 05:16 ABG pH 7.40 (7.35-7.45) 01/30/17 05:16 ABG Total CO2 35.1 mmol/L (22-28) H 01/30/17 05:16 ABG O2 Saturation 98.0 % (95-98) 01/30/17 05:16 ABG O2 Content 14.0 ML/dL (15-23) L 01/30/17 05:16 ABG Base Excess 7.3 mmol/L (-2.0-3.0) H 01/30/17 05:16 ABG Hemoglobin 10.5 g/dL (11.7-17.4) L 01/30/17 05:16 ABG Carboxyhemoglobin 2.0 % (0.5-1.5) H 01/30/17 05:16 POC ABG HHb (Measured) 1.9 % (0.0-5.0) 01/30/17 05:16 ABG Methemoglobin 1.7 % (0.0-3.0) 01/30/17 05:16 ABG O2 Capacity 14.3 mL/dL (16-24) L 01/30/17 05:16 Rakan Test Yes 01/30/17 05:16 ABG Potassium 3.7 mmol/L (3.6-5.2) 01/17/17 05:20 A-a O2 Difference 70.0 mm/Hg 01/30/17 05:16 Hgb O2 Saturation 94.5 % (95.0-98.0) L 01/30/17 05:16 Sodium 136.0 mmol/L (132-148) 01/17/17 05:20 Chloride 103.0 mmol/L (98-107) 01/17/17 05:20 Glucose 260 mg/dL (65-105) H 01/17/17 05:20 Lactate 1.4 mmol/L (0.7-2.1) 01/17/17 05:20 Liter Flow 20 01/16/17 13:10 Vent Mode Trach collar 01/30/17 05:16 Mechanical Rate 14 01/28/17 05:21 FiO2 30.0 % 01/30/17 05:16 Tidal Volume 380 01/28/17 05:21 PEEP 5 01/28/17 05:21 Pressure Support 8 01/21/17 09:57 CPAP 5 01/21/17 09:57 Blood Gas Comments Prvc/ac12/v300/60%/+5peep 01/16/17 16:06 Crit Value Called To Dr kal mcqueen 01/16/17 16:06 Crit Value Called By Aracelis 01/16/17 16:06 Crit Value Read Back Y 01/16/17 16:06 Blood Gas Notified Time 1649 01/16/17 16:06 Sodium 132 mmol/l (132-148) 02/03/17 12:00 Potassium 4.8 MMOL/L (3.6-5.0) 02/03/17 12:00 Chloride 91 mmol/L (98-107) L 02/03/17 12:00 Carbon Dioxide 35 mmol/L (22-30) H 02/03/17 12:00 Anion Gap 11 (10-20) 02/03/17 12:00 BUN 29 mg/dl (7-17) H 02/03/17 12:00 Creatinine 0.6 mg/dL (0.7-1.2) L 02/03/17 12:00 Est GFR ( Amer) > 60 02/03/17 12:00 Est GFR (Non-Af Amer) > 60 02/03/17 12:00 POC Glucose (mg/dL) 114 mg/dL (65-110) H 02/04/17 05:22 Random Glucose 137 mg/dL (65-105) H 02/03/17 12:00 Hemoglobin A1c 6.9 % (4.2-6.5) H 01/13/17 04:30 Serum Osmolality 388 mosm/kg (272-300) H 01/10/17 05:30 Lactic Acid 2.7 MMOL/L (0.7-2.1) H 01/10/17 06:03 Calcium 8.8 mg/dL (8.4-10.2) 02/03/17 12:00 Phosphorus 4.7 mg/dl (2.5-4.5) H 01/20/17 11:14 Magnesium 2.2 MG/DL (1.6-2.3) 01/20/17 11:14 Total Bilirubin 0.4 mg/dl (0.2-1.3) 01/31/17 05:30 AST 33 U/L (14-36) 01/31/17 05:30 ALT 35 U/L (9-52) 01/31/17 05:30 Alkaline Phosphatase 110 U/L (38-126) 01/31/17 05:30 Total Creatine Kinase 42 U/L (30-135) 01/09/17 22:15 Troponin I 0.2400 ng/mL (0.00-0.120) H* 01/10/17 05:30 NT-Pro-B Natriuret Pep 55851 pg/ml (0-900) H 01/09/17 16:15 Total Protein 6.5 G/DL (6.3-8.2) 01/31/17 05:30 Albumin 2.9 g/dL (3.5-5.0) L 01/31/17 05:30 Globulin 3.6 gm/dL (2.2-3.9) 01/31/17 05:30 Albumin/Globulin Ratio 0.8 (1.0-2.1) L 01/31/17 05:30 Thyroxine (T4) 2.90 ug/dl (5.5-11.0) L 01/20/17 11:14 Free T3 pg/mL 1.96 pg/mL (2.77-5.27) L 01/22/17 04:20 Reverse T3 38 ng/dL (8-25) H 01/22/17 04:20 Total T3 0.365 nmol/L (1.49-2.60) L 01/20/17 11:14 TSH 3rd Generation 1.87 mIU/ML (0.46-4.68) 01/20/17 11:14 Arterial Blood Potassium 3.7 mmol/L (3.6-5.2) 01/17/17 05:20 Urine Color Yellow (YELLOW) 01/17/17 12:50 Urine Clarity Slighty-cloudy (Clear) 01/17/17 12:50 Urine pH 7.0 (5.0-8.0) 01/17/17 12:50 Ur Specific Manson 1.016 (1.003-1.030) 01/17/17 12:50 Urine Protein 30 mg/dL (NEGATIVE) 01/17/17 12:50 Urine Glucose (UA) Neg mg/dL (Normal) 01/17/17 12:50 Urine Ketones Negative mg/dL (NEGATIVE) 01/17/17 12:50 Urine Blood Small (NEGATIVE) 01/17/17 12:50 Urine Nitrate Negative (NEGATIVE) 01/17/17 12:50 Urine Bilirubin Negative (NEGATIVE) 01/17/17 12:50 Urine Urobilinogen 0.2-1.0 mg/dL (0.2-1.0) 01/17/17 12:50 Ur Leukocyte Esterase Mod Nabeel/uL (Negative) 01/17/17 12:50 Urine RBC (Auto) 19 /hpf (0-3) H 01/17/17 12:50 Urine Microscopic WBC 3 /hpf (0-5) 01/17/17 12:50 Ur Squamous Epith Cells 1 /hpf (0-5) 01/09/17 17:02 Urine Bacteria Mod (<OCC) H 01/09/17 17:02 Hyaline Casts 0-2 /hpf (0-2) 01/09/17 17:02 Ur Yeast w Hyphae Rare /lpf (NEGATIVE) H 01/17/17 12:50 Urine Yeast (Budding) Few /hpf (NEGATIVE) H 01/17/17 12:50 Ur Random Sodium 72 meq/L 01/09/17 17:47 Ur Random Potassium 49.8 mmol/L 01/09/17 17:47 Digoxin 1.2 ng/mL (0.8-2.0) 01/10/17 01:43 Blood Type O POSITIVE 01/27/17 05:00 Antibody Screen Negative 01/27/17 05:00 Crossmatch See Detail 01/21/17 07:40 Crossmatch IS Only See Detail 01/09/17 16:20 BBK History Checked Patient has bt 01/27/17 05:00 - Hospital Course Hospital Course: 1) Acute respiratory failure w/ hypercapnia -s/p tracheostomy on 01/27/2017 - CXR 01/29/2017 s/p trach: improving pulmonary edema, trach placed properly, unresolved pulmonary infiltrates 2) HCAP sputum culture 01/10/2017 grew Staph aureus susceptible to all antibiotics except penicillin - sputum culture 01/16/2017 shows normal oral errol - clindamycin 600 mg IV Q8h day 15 - X ray from 02/02/17: shows no change in b/l infiltrate. WBC: 5.9 - ID consult appreciated 3) COPD exacerbation ( controlled) - Duoneb Q4 - prednislone 10 mg - mucomyst 2 mL BID - chest PT Q4h s/p duoneb therapy 4) Type 2 DM - Newly diagnosed: 6.9 5)Anemia - - Hb:11.5 stable 6) Chronic Atrial fibrilation -xarelto 15 mg PO - Digoxin .125 mg - Lopresor 12.5 mg PO -cardiac monitoring Today patient isdoing well; sitting up in bed. Afebrile VSS chest xray; no changes above discussed with , Dr. Mosqueda pt. completed tx of IV Abx-d/w dr. Mosqueda pt. cleared for discharge to [facility] today under Dr.Jurado pearson trach care , TF via Peg Discharge Exam - Head Exam Head Exam: NORMAL INSPECTION - Neck Exam Additional comments: trach collar - Respiratory Exam Respiratory Exam: Decreased Breath Sounds. absent: Wheezes - Cardiovascular Exam Cardiovascular Exam: REGULAR RHYTHM, +S1, +S2 - GI/Abdominal Exam GI & Abdominal Exam: Soft - Neurological Exam Neurological exam: Alert, CN II-XII Intact - Skin Skin Exam: Normal Color, Warm Discharge Plan - Follow Up Plan Condition: CRITICAL Disposition: REHAB FACILITY/REHAB UNIT Additional Instructions: pt. doing well; sitting up in bed. Afebrile VSS chest xray; no changes above discussed with Dr. Panda Bernal pt. completed tx of IV Abx-d/w dr. Mosqueda pt. cleared for discharge to [facility] today under Dr.Jurado pearson trach care , TF via Peg Referrals: Nura Templeton MD [Staff Provider] -
[2017-02-04] MEDS: Digoxin 125 mcg (0.125 mg) Tab PO SCH (18:07)
[2017-02-04 18:12] VITALS: PULSE 92
[2017-02-05] MEDS: Albuterol-Ipratrop 3 mg / 0.5 (3 ml) UD INH SCH ×4 (00:25→11:38)
[2017-02-05 01:00] VITALS: RESP 18
[2017-02-05] MEDS: Clindamycin 600 MG in Sodium Chloride 0.9% 100 ML IVPB SCH ×3 (01:43→09:36)
[2017-02-05] MEDS: Acetylcysteine 10% 4 ML IH SCH (07:46)
[2017-02-05 08:07] VITALS: BP 169/91; PULSE 97; TEMP 98; O2SAT 100
[2017-02-05] MEDS: Insulin Regular 100 units/ml SC SCH (08:16)
[2017-02-05] MEDS: Lactobacillus Acidophilus 500 MU Cap PO SCH ×2 (09:30→09:42)
--- NOTE | 2017-02-09 11:36 | PQF SEPSIS ---
Dr. Templeton ER Physician Documentation Report documented septic shock. Was pt admitted with a diagnosis of sepsis and/or septic shock? This form is a permanent part of the medical record Clarification of your documentation is requested to better reflect the severity of illness and intensity of treatment of your patient. Indicators present [] Temp < 96.8 or > 100.4 [] WBC count > 12,000/mm3 or <000/mm3 or 10% immature neutrophils [] Heart Rate > 90 [] Respiratory Rate > 20 [] Fever or hypothermia [] Chills [] Positive blood cultures [] Hypotension [x] Metabolic acidosis (Elevated lactate level, anion gap or reduced blood pH) [] Acute confusion /Altered Mental Status [] Shock [] Other: [] Location in the medical record that reflects the above clinical findings: [] Treatment Provided: [] PHYSICIAN'S RESPONSE Based on your medical judgment of the clinical indicators outlined above, are you treating this patient for a known or suspected: [] Sepsis / Septicemia Please specify organism if known [] [] SIRS (Systemic Inflammatory Response Syndrome) [] Severe Sepsis (Sepsis with Associated Organ Dysfunction) [] Fever of Unknown Origin [] Other, please indicate: [] [] If Unable to Determine, please check the box, sign and date. Present On Admission (POA) Indicator: [] Present at the time of admission [] Not present at the time of admission [] Clinically Undetermined In responding to this query, please exercise your independent professional judgment. The fact that a question is asked does not imply that any particular answer is desired or expected. Thank you for your clarification on this documentation. If you have any questions please call:[ ] * Thank you, [ ]Vale Adhikari regional coordinator CON
== END 2017-02-05 15:00 | DRG 4 ==
LOC: H.ER 15:57 → H.ERHOLD 17:25 → H.ICU/CCU 19:08 → H.TEL 02-02 01:20
PROVIDERS: ADMIT Family Medicine; ATTEND Family Medicine
PROC: 06HN33Z Insertion of Infusion Device into Left Femoral Vein, Percutaneous Approach (ICD-10-PCS; 2017-01-09)
PROC: 5A1955Z Respiratory Ventilation, Greater than 96 Consecutive Hours (ICD-10-PCS; 2017-01-09)
PROC: 3E0G76Z Introduction of Nutritional Substance into Upper GI, Via Natural or Artificial Opening (ICD-10-PCS; 2017-01-09)
PROC: 3E0234Z Introduction of Serum, Toxoid and Vaccine into Muscle, Percutaneous Approach (ICD-10-PCS; principal; 2017-01-10)
PROC: 30233N1 Transfusion of Nonautologous Red Blood Cells into Peripheral Vein, Percutaneous Approach (ICD-10-PCS; 2017-01-12)
PROC: 0BH17EZ Insertion of Endotracheal Airway into Trachea, Via Natural or Artificial Opening (ICD-10-PCS; 2017-01-16)
PROC: 0B113F4 Bypass Trachea to Cutaneous with Tracheostomy Device, Percutaneous Approach (ICD-10-PCS; 2017-01-27)
PROC: 0BJ08ZZ Inspection of Tracheobronchial Tree, Via Natural or Artificial Opening Endoscopic (ICD-10-PCS; 2017-01-27)
DX: A41.9 Sepsis, unspecified organism (principal); I46.9 Cardiac arrest, cause unspecified; N17.0 Acute kidney failure with tubular necrosis; R65.21 Severe sepsis with septic shock; G93.41 Metabolic encephalopathy; I50.31 Acute diastolic (congestive) heart failure; J18.9 Pneumonia, unspecified organism; I13.0 Hypertensive heart and chronic kidney disease with heart failure and stage 1 through stage 4 chronic kidney disease, or unspecified chronic kidney disease; J96.02 Acute respiratory failure with hypercapnia; J96.01 Acute respiratory failure with hypoxia; E87.0 Hyperosmolality and hypernatremia; E87.2 Acidosis; J44.1 Chronic obstructive pulmonary disease with (acute) exacerbation; Z99.11 Dependence on respirator [ventilator] status; J44.0 Chronic obstructive pulmonary disease with (acute) lower respiratory infection; F03.90 Unspecified dementia, unspecified severity, without behavioral disturbance, psychotic disturbance, mood disturbance, and anxiety; E87.5 Hyperkalemia; I48.2 Chronic atrial fibrillation; E86.0 Dehydration; D63.8 Anemia in other chronic diseases classified elsewhere; Z93.1 Gastrostomy status; Z79.01 Long term (current) use of anticoagulants; Z23 Encounter for immunization; N18.9 Chronic kidney disease, unspecified; E78.00 Pure hypercholesterolemia, unspecified; E78.5 Hyperlipidemia, unspecified; Y95 Nosocomial condition; I48.0 Paroxysmal atrial fibrillation; Z16.11 Resistance to penicillins; E11.65 Type 2 diabetes mellitus with hyperglycemia; E87.6 Hypokalemia; Z78.1 Physical restraint status; R79.89 Other specified abnormal findings of blood chemistry; Z74.01 Bed confinement status; A49.01 Methicillin susceptible Staphylococcus aureus infection, unspecified site

== ENCOUNTER 2017-02-05 23:35 | Observation (INO) | payer MEDICARE ==
[2017-02-05 23:35] VITALS: PULSE 92
[2017-02-05 23:48] VITALS: BMI 14.1
[2017-02-05 23:54] VITALS: O2SAT 100
--- NOTE | 2017-02-06 00:16 | ED PDOC ---
HPI: SOB/CHF/COPD Time Seen by Provider: 02/05/17 23:39 Chief Complaint (Nursing): Respiratory Distress History Per: Other (care home) History/Exam Limitations: no limitations Onset/Duration Of Symptoms: Mins (Prior to arrival) Current Symptoms Are (Timing): Still Present Additional Complaint(s): Lucita Gardner is a 71 year old female with a past medical history of atrial fibrillation, hypertension, respiratory failure, chronic obstructive pulmonary disorder, diabetes, and presents with seizure-like activity. Patient was discharged today from this facility to a sub-acute rehab facility. care home notes patient had unspecified seizure activity. History is per the retirement and the patient is not able to offer history. Upon arrival to ED, patient is in no acute distress, is cooperative, and denies any medical complaints. Past surgical history is a tracheostomy and gastrostomy. PMD: Dr. Nura Templeton MD Past Medical History Reviewed: Historical Data, Nursing Documentation, Vital Signs Vital Signs: Last Vital Signs Temp 98.4 F 02/06/17 00:30 Pulse 76 02/06/17 02:30 Resp 18 02/06/17 02:30 BP 143/80 02/06/17 02:30 Pulse Ox 100 02/06/17 05:54 - Medical History PMH: Anemia, Atrial Fibrillation, Cardia Arrhythmia, CHF, Dementia, Emphysema, HTN, Hypercholesterolemia Denies: Asthma, COPD, HIV, Chronic Kidney Disease - Surgical History Other surgeries: Tracheostomy and gastrostomy - Family History Family History: States: Unknown Family Hx - Social History Current smoker - smoking cessation education provided: No Alcohol: None Drugs: Denies - Immunization History Hx Tetanus Toxoid Vaccination: No Hx Influenza Vaccination: Yes (2015) Hx Pneumococcal Vaccination: No - Home Medications Home Medications: Ambulatory Orders Medication Instructions Recorded Acetylcysteine [Mucomyst 10% 4ML] 2 ml IH RBID carlyn 02/04/17 Albuterol/Ipratropium [Duoneb 3 3 ml INH RQ4 neb 02/04/17 mg/0.5 mg (3 ml) UD] Insulin Human Regular [HumuLIN R] 0 units SC ACCU-CHECK ml 02/04/17 Digoxin [Lanoxin] 0.125 mg PEG DAILY@1800 02/06/17 Famotidine [Pepcid] 20 mg PEG Q12 02/06/17 Labetalol [Trandate] 100 mg PEG Q8 02/06/17 Lactulose [Enulose] 20 gm PEG DAILY 02/06/17 Rivaroxaban [Xarelto] 15 mg PEG DAILY 02/06/17 amLODIPine [Norvasc] 5 mg PEG DAILY 02/06/17 predniSONE [predniSONE Tab] 10 mg PEG DAILY 02/06/17 - Allergies Allergies/Adverse Reactions: Allergies Allergy/AdvReac Type Severity Reaction Status Date / Time No Known Allergies Allergy Verified 02/05/17 23:48 Review of Systems ROS Statement: Except As Marked, All Systems Reviewed And Found Negative Physical Exam - Reviewed Nursing Documentation Reviewed: Yes Vital Signs Reviewed: Yes - Physical Exam Appears: Positive for: Well, Non-toxic, No Acute Distress Head Exam: Positive for: ATRAUMATIC, NORMOCEPHALIC Skin: Positive for: Normal Color, Warm, Dry Eye Exam: Positive for: EOMI, Normal appearance, PERRL ENT: Positive for: Normal ENT Inspection Neck: Positive for: Normal, Painless ROM, Supple Cardiovascular/Chest: Positive for: Regular Rate, Rhythm. Negative for: Murmur Respiratory: Positive for: Rhonchi (Trace rhonchi at base of lungs) Gastrointestinal/Abdominal: Positive for: Normal Exam, Bowel Sounds, Soft. Negative for: Tenderness Back: Positive for: Normal Inspection, Other (Sacral decubitus order) Extremity: Positive for: Normal ROM, Other (Heel breakdown). Negative for: Pedal Edema, Deformity Neurologic/Psych: Positive for: Alert, Oriented - Laboratory Results Result Diagrams: 02/06/17 00:05 02/06/17 00:05 - ECG O2 Sat by Pulse Oximetry: 100 (Trach) Pulse Ox Interpretation: Normal Medical Decision Making Medical Decision Making: Time: 23:42 Initial Impression: 68 year old female with possible seizure activity Initial Plan: --EKG --BNP --CMP --Digoxin --Lactic Acid, Plasma --Troponin I --Urine Dipstick --CBC --Partial Thromboplastin Time --Thromboplastin Time --X-Ray Portable Chest --Blood culture --Urine culture --Heplock IV Insertion --Accucheck --O2 via Trach Collar --Influenza AB --Reevaluation Time: 1:20 Plan: --Called retirement for more history because EMS was uncertain. care home reported that the patient did not have seizure activity, but an episode of acute hypoxia wherein oxygen levels desaturated into the 50 range. --Test results were discussed with the patient and not found to be clinically significant. Pro BNP was elevated due to patient's chronic condition. X-Ray showed bilateral infiltrates in chest which were present in previous study. Urine was indicative of a UTI. Patient placed in observation to be seen by Dr. Templeton for hypoxic episode and UTI. 0524 CT HEAD FINDINGS Brain: Mild atrophy. No intracranial hemorrhage. No mass. Several scattered foci of decreased attenuation within periventricular/subcortical white matter. No definite edema. Ventricles: No hydrocephalus. Bones/joints: No acute fracture. Soft tissues: Unremarkable. Vasculature: Atherosclerotic disease of intracranial arteries. Sinuses: Mild focal mucosal thickening of RIGHT sphenoid sinus. Scattered minimal mucosal thickening of remaining sinuses. Mastoid air cells: Partial opacification of RIGHT mastoid. Orbits: Unremarkable as visualized. IMPRESSION: 1. Nonspecific white matter changes. Acute infarction may be CT occult within first 24 hours. If a focal deficit persists, consider followup CT or MRI for further evaluation. 2. Sinus disease. 3. Mastoid disease. 4. Incidental/non-acute findings are described above. Scribe Attestation: Documented by Gerry Zuniga, acting as a scribe for Joss Orantes MD Provider Scribe Attestation: All medical record entries made by the Scribe were at my direction and personally dictated by me. I have reviewed the chart and agree that the record accurately reflects my personal performance of the history, physical exam, medical decision making, and the department course for this patient. I have also personally directed, reviewed, and agree with the discharge instructions and disposition. Disposition - Clinical Impression Clinical Impression: Respiratory distress, Seizure-like activity, UTI (urinary tract infection) - Patient ED Disposition Is Patient to be Admitted: Yes Discussed With DrSidney: Nura Templeton - Disposition Disposition Time: 01:20 Condition: FAIR - Pt Status Changed To: Hospital Disposition Of: Observation (OBS MED/SURG) - POA Present On Arrival: None
[2017-02-06 00:55] LABS: BASO # 0.1 K/uL (0.0-0.2); BASO % 1.3 % (0.0-2.0); EOS # 0.2 K/uL (0.0-0.7); HEMATOCRIT 31.6 % (34.0-47.0); LYMPH # 0.6 K/uL (1.0-4.3); LYMPH % 14.1 % (20.0-40.0); MEAN CELL VOLUME 91.7 fl (81.0-99.0); MEAN CORPUSCULAR HEMOGLOBIN 29.5 pg (27.0-31.0); MEAN CORPUSCULAR HGB CONC 32.2 g/dL (33.0-37.0); MEAN PLATELET VOLUME 8.2 fl (7.2-11.7); MONO # 0.3 K/uL (0.0-0.8); NEUT # 3.2 K/uL (1.8-7.0); NEUT % 73.6 % (50.0-75.0); NRBC % 0.1 % (0.0-0.0); RED CELL DISTRIBUTION WIDTH 21.2 % (11.5-14.5); WHITE BLOOD COUNT 4.4 K/uL (4.8-10.8)
[2017-02-06 01:02] LABS: RBC URINE 11 /hpf (0-3); URINE BACTERIA FEW (<OCC); URINE BILIRUBIN NEGATIVE (NEGATIVE); URINE BLOOD NEGATIVE (NEGATIVE); URINE COLOR YELLOW (YELLOW); URINE GLUCOSE (UA) 150 mg/dL (Normal); URINE KETONE NEGATIVE (NEGATIVE); URINE LEUKOCYTE ESTERASE LARGE Leu/uL (Negative); URINE PROTEIN 100 mg/dL (NEGATIVE); URINE UROBILINOGEN 0.2-1.0 mg/dL (0.2-1.0); WBC URINE 65 /hpf (0-5)
[2017-02-06 01:06] LABS: ALB/GLOB RATIO 0.9 (1.0-2.1); ALKALINE PHOSPHATASE 200 U/L (38-126); ALT/SGPT 65 U/L (9-52); AST/SGOT 99 U/L (14-36); BILIRUBIN,TOTAL 0.6 mg/dl (0.2-1.3); BLOOD UREA NITROGEN 37 mg/dl (7-17); CALCIUM 9.1 mg/dL (8.4-10.2); CARBON DIOXIDE 34 mmol/L (22-30); CHLORIDE 89 mmol/L (98-107); GFR AFRICAN-AMERICAN > 60; GLUCOSE,RANDOM 186 mg/dL (65-105); POTASSIUM 5.4 MMOL/L (3.6-5.0); SODIUM 132 mmol/l (132-148)
[2017-02-06 01:21] LABS: PARTIAL THROMBOPLASTIN TIME 27.5 Seconds (25.6-37.1)
[2017-02-06] MEDS ORDERED: cefTRIAXone IV 1 gm in Dextros 50 ML IVPB ONE (01:39)
[2017-02-06] MEDS ORDERED: cefTRIAXone IV 1 gm in Dextros 50 ML IVPB STA (01:42)
[2017-02-06] MEDS ORDERED: Dextrose 50% SYRINGE Inj (50 ml) IV PRN (04:24)
[2017-02-06] MEDS ORDERED: Glucagon Recombinant 1 mg Inj IM PRN (04:24)
--- NOTE | 2017-02-06 05:24 | CT ---
EXAM: CT Head Without Intravenous Contrast CLINICAL HISTORY: 71 years old, female; Condition or disease; Other: Possible seizure TECHNIQUE: Axial computed tomography images of the head/brain without intravenous contrast. All CT scans at this facility use one or more dose reduction techniques, viz.: automated exposure control; ma/kV adjustment per patient size (including targeted exams where dose is matched to indication; i.e. head); or iterative reconstruction technique. Coronal and sagittal reformatted images were created and reviewed. COMPARISON: CT - HEAD W/O CONTRAST 2017-01-09 18:23 FINDINGS: Brain: Mild atrophy. No intracranial hemorrhage. No mass. Several scattered foci of decreased attenuation within periventricular/subcortical white matter. No definite edema. Ventricles: No hydrocephalus. Bones/joints: No acute fracture. Soft tissues: Unremarkable. Vasculature: Atherosclerotic disease of intracranial arteries. Sinuses: Mild focal mucosal thickening of RIGHT sphenoid sinus. Scattered minimal mucosal thickening of remaining sinuses. Mastoid air cells: Partial opacification of RIGHT mastoid. Orbits: Unremarkable as visualized. IMPRESSION: 1. Nonspecific white matter changes. Acute infarction may be CT occult within first 24 hours. If a focal deficit persists, consider followup CT or MRI for further evaluation. 2. Sinus disease. 3. Mastoid disease. 4. Incidental/non-acute findings are described above.
[2017-02-06] MEDS: Insulin Regular 100 units/ml SC SCH ×2 (08:05→12:00)
[2017-02-06 08:44] VITALS: RESP 20; TEMP 98.2
--- NOTE | 2017-02-06 08:54 | CARD ---
APPROVED REPORT EKG Measurement Heart [id number] IL [id number] [id number] <Conclusion> Sinus rhythm with premature atrial complexes Biatrial enlargement Left axis deviation Anterior infarct, age undetermined ST & T wave abnormality, consider lateral ischemia Abnormal ECG
[2017-02-06] MEDS ORDERED: Famotidine 40 MG/5 ML PEG SCH (09:30)
[2017-02-06] MEDS: Albuterol-Ipratrop 3 mg / 0.5 (3 ml) UD INH SCH ×2 (11:05→15:23)
--- NOTE | 2017-02-06 12:34 | RAD ---
HISTORY: SOB COMPARISON: Portable chest 02/02/2017. FINDINGS: Tracheostomy tube is unchanged in position. LUNGS: Right perihilar infiltrate is unchanged with diminished left perihilar and retrocardiac infiltrate/atelectasis. PLEURA: Trace bilateral pleural effusions are not identified. CARDIOVASCULAR: Stable mild cardiomegaly. Diminished or possibly resolved pulmonary venous congestion. OSSEOUS STRUCTURES: No significant abnormalities. VISUALIZED UPPER ABDOMEN: Normal. OTHER FINDINGS: None. IMPRESSION: Significant interval improvement in left-sided infiltrates with limited residual the left perihilar and basilar regions. Trace bilateral pleural effusions are suspected. No interval change in right perihilar infiltrate. Stable mild cardiomegaly. Diminished or resolved pulmonary venous congestion.
[2017-02-06 14:56] VITALS: BP 130/64; PULSE 67
--- NOTE | 2017-02-06 16:58 | CP.PCM.HP ---
History of Present Illness - History of Present Illness History of Present Illness: 71 YO F w/ PMH of atrial fib, hypertension and respiratory failure, COPD who was recently discharged to a sub acute rehab facility. She was sent back to [facility] as per chart for unspecified seizure activity. Patient is no able to vocalize her history. No seizure like activity was noted while patients stay. Present on Admission - Present on Admission Any Indicators Present on Admission: Yes Past Patient History - Infectious Disease Hx of Infectious Diseases: None - Tetanus Immunizations Tetanus Immunization: Unknown - Past Medical History & Family History Past Medical History?: Yes - Past Social History Alcohol: None Drugs: Denies - CARDIAC Hx Atrial Fibrillation: Yes Hx Cardia Arrhythmia: Yes Hx Congestive Heart Failure: Yes Hx Hypercholesterolemia: Yes Hx Hypertension: Yes - PULMONARY Hx Asthma: No Hx Chronic Obstructive Pulmonary Disease (COPD): No Hx Emphysema: Yes - NEUROLOGICAL Hx Dementia: Yes - HEENT Hx HEENT Problems: Yes Hx Cataracts: Yes (both eyes) - RENAL Hx Chronic Kidney Disease: No - ENDOCRINE/METABOLIC Hx Endocrine Disorders: No - HEMATOLOGICAL/ONCOLOGICAL Hx Anemia: Yes Hx Human Immunodeficiency Virus (HIV): No - INTEGUMENTARY Hx Dermatological Problems: Yes Other/Comment: skin dryness - MUSCULOSKELETAL/RHEUMATOLOGICAL Hx Musculoskeletal Disorders: Yes Hx Falls: No - GASTROINTESTINAL Hx Gastrointestinal Disorders: Yes Other/Comment: Hx Peg tube. Hx Malnutrition. Hx Transaminitis - GENITOURINARY/GYNECOLOGICAL Hx Genitourinary Disorders: Yes - PSYCHIATRIC Hx Psychophysiologic Disorder: No Hx Substance Use: No (unknown) - SURGICAL HISTORY Hx Surgeries: Yes Hx Cataract Extraction: Yes (2013) Hx Eye Surgery: Yes - ANESTHESIA Hx Anesthesia: Yes Hx Anesthesia Reactions: No Hx Malignant Hyperthermia: No Meds Home Medications: Home Medication List Medication Instructions Recorded Confirmed Type Insulin Human Regular [HumuLIN R] 0 units SC ACHS ml 02/06/17 Rx Allergies/Adverse Reactions: Allergies Allergy/AdvReac Type Severity Reaction Status Date / Time No Known Allergies Allergy Verified 02/05/17 23:48 Physical Exam - Constitutional Appears: No Acute Distress - Eye Exam Eye Exam: Normal appearance - Neck Exam Additional comments: Trach - Respiratory Exam Respiratory Exam: Decreased Breath Sounds, Rhonchi - Cardiovascular Exam Cardiovascular Exam: REGULAR RHYTHM, +S1, +S2 - GI/Abdominal Exam GI & Abdominal Exam: Normal Bowel Sounds, Soft. absent: Tenderness - Neurological Exam Neurological exam: Alert, CN II-XII Intact - Skin Skin Exam: Normal Color, Warm Results - Vital Signs Recent Vital Signs: Last Vital Signs Temp 98.2 F 02/06/17 14:55 Pulse 67 02/06/17 14:55 Resp 20 02/06/17 14:55 BP 130/64 02/06/17 14:55 Pulse Ox 100 02/06/17 14:55 - Labs Result Diagrams: 02/06/17 00:05 02/06/17 00:05 Labs: Laboratory Results - last 24 hr 02/05/17 02/05/17 02/06/17 23:46 23:50 00:05 WBC RBC Hgb Hct MCV MCH MCHC RDW Plt Count MPV Neut % (Auto) Lymph % (Auto) [place] % (Auto) Eos % (Auto) Baso % (Auto) Neut # Lymph # Garden # Eos # Baso # PT INR APTT Sodium 132 Potassium 5.4 H Chloride 89 L Carbon Dioxide 34 H Anion Gap 14 BUN 37 H Creatinine 0.7 Est GFR ( Amer) > 60 Est GFR (Non-Af Amer) > 60 POC Glucose (mg/dL) 199 H Random Glucose 186 H Lactic Acid Calcium 9.1 Total Bilirubin 0.6 AST 99 H D ALT 65 H D Alkaline Phosphatase 200 H D Troponin I 0.0220 NT-Pro-B Natriuret Pep 6970 H Total Protein 7.0 Albumin 3.3 L Globulin 3.7 Albumin/Globulin Ratio 0.9 L Urine Color Yellow Urine Clarity Slighty-cloudy Urine pH 7.0 Ur Specific [place] 1.013 Urine Protein 100 Urine Glucose (UA) 150 Urine Ketones Negative Urine Blood Negative Urine Nitrate Negative Urine Bilirubin Negative Urine Urobilinogen 0.2-1.0 Ur Leukocyte Esterase Large Urine RBC (Auto) 11 H Urine Microscopic WBC 65 H Urine Bacteria Few H Digoxin Influenza Typ A,B (EIA) 02/06/17 02/06/17 02/06/17 00:05 00:05 00:05 WBC 4.4 L RBC 3.44 L Hgb 10.2 L Hct 31.6 L MCV 91.7 D MCH 29.5 MCHC 32.2 L RDW 21.2 H Plt Count 181 MPV 8.2 Neut % (Auto) 73.6 Lymph % (Auto) 14.1 L [place] % (Auto) 7.0 Eos % (Auto) 4.0 Baso % (Auto) 1.3 Neut # 3.2 Lymph # 0.6 L [place] # 0.3 Eos # 0.2 Baso # 0.1 PT INR APTT Sodium Potassium Chloride Carbon Dioxide Anion Gap BUN Creatinine Est GFR ( Amer) Est GFR (Non-Af Amer) POC Glucose (mg/dL) Random Glucose Lactic Acid 2.6 H Calcium Total Bilirubin AST ALT Alkaline Phosphatase Troponin I NT-Pro-B Natriuret Pep Total Protein Albumin Globulin Albumin/Globulin Ratio Urine Color Urine Clarity Urine pH Ur Specific [place] Urine Protein Urine Glucose (UA) Urine Ketones Urine Blood Urine Nitrate Urine Bilirubin Urine Urobilinogen Ur Leukocyte Esterase Urine RBC (Auto) Urine Microscopic WBC Urine Bacteria Digoxin 1.3 Influenza Typ A,B (EIA) 02/06/17 02/06/17 02/06/17 00:05 00:43 07:17 WBC RBC Hgb Hct MCV MCH MCHC RDW Plt Count MPV Neut % (Auto) Lymph % (Auto) [place] % (Auto) Eos % (Auto) Baso % (Auto) Neut # Lymph # [place] # Eos # Baso # PT 10.5 INR 0.9 APTT 27.5 Sodium Potassium Chloride Carbon Dioxide Anion Gap BUN Creatinine Est GFR ( Amer) Est GFR (Non-Af Amer) POC Glucose (mg/dL) 97 Random Glucose Lactic Acid Calcium Total Bilirubin AST ALT Alkaline Phosphatase Troponin I NT-Pro-B Natriuret Pep Total Protein Albumin Globulin Albumin/Globulin Ratio Urine Color Urine Clarity Urine pH Ur Specific [place] Urine Protein Urine Glucose (UA) Urine Ketones Urine Blood Urine Nitrate Urine Bilirubin Urine Urobilinogen Ur Leukocyte Esterase Urine RBC (Auto) Urine Microscopic WBC Urine Bacteria Digoxin Influenza Typ A,B (EIA) Negative for flu a/b 02/06/17 11:21 WBC RBC Hgb Hct MCV MCH MCHC RDW Plt Count MPV Neut % (Auto) Lymph % (Auto) Garden % (Auto) Eos % (Auto) Baso % (Auto) Neut # Lymph # Garden # Eos # Baso # PT INR APTT Sodium Potassium Chloride Carbon Dioxide Anion Gap BUN Creatinine Est GFR ( Amer) Est GFR (Non-Af Amer) POC Glucose (mg/dL) 88 Random Glucose Lactic Acid Calcium Total Bilirubin AST ALT Alkaline Phosphatase Troponin I NT-Pro-B Natriuret Pep Total Protein Albumin Globulin Albumin/Globulin Ratio Urine Color Urine Clarity Urine pH Ur Specific [place] Urine Protein Urine Glucose (UA) Urine Ketones Urine Blood Urine Nitrate Urine Bilirubin Urine Urobilinogen Ur Leukocyte Esterase Urine RBC (Auto) Urine Microscopic WBC Urine Bacteria Digoxin Influenza Typ A,B (EIA) Assessment & Plan - Assessment and Plan (Free Text) Assessment: 1) Unspecified seizure activity - CT: No acute changes noted - No changes noted on patients stay. Will discharge back to [facility]. PAtient is doing well at baseline. Saturating well.
--- NOTE | 2017-02-06 17:07 | CP.PCM.DIS ---
Provider - Provider Date of Admission: 02/06/17 01:23 Attending physician: Nura Templeton MD Time Spent in preparation of Discharge (in minutes): 30 Diagnosis - Discharge Diagnosis (1) Respiratory distress Status: Acute (2) Seizure Status: Acute Hospital Course - Lab Results Lab Results: Most Recent Lab Values WBC 4.4 K/uL (4.8-10.8) L 02/06/17 00:05 RBC 3.44 Mil/uL (3.80-5.20) L 02/06/17 00:05 Hgb 10.2 g/dL (12.0-16.0) L 02/06/17 00:05 Hct 31.6 % (34.0-47.0) L 02/06/17 00:05 MCV 91.7 fl (81.0-99.0) D 02/06/17 00:05 MCH 29.5 pg (27.0-31.0) 02/06/17 00:05 MCHC 32.2 g/dL (33.0-37.0) L 02/06/17 00:05 RDW 21.2 % (11.5-14.5) H 02/06/17 00:05 Plt Count 181 K/uL (130-400) 02/06/17 00:05 MPV 8.2 fl (7.2-11.7) 02/06/17 00:05 Neut % (Auto) 73.6 % (50.0-75.0) 02/06/17 00:05 Lymph % (Auto) 14.1 % (20.0-40.0) L 02/06/17 00:05 [place] % (Auto) 7.0 % (0.0-10.0) 02/06/17 00:05 Eos % (Auto) 4.0 % (0.0-4.0) 02/06/17 00:05 Baso % (Auto) 1.3 % (0.0-2.0) 02/06/17 00:05 Neut # 3.2 K/uL (1.8-7.0) 02/06/17 00:05 Lymph # 0.6 K/uL (1.0-4.3) L 02/06/17 00:05 [place] # 0.3 K/uL (0.0-0.8) 02/06/17 00:05 Eos # 0.2 K/uL (0.0-0.7) 02/06/17 00:05 Baso # 0.1 K/uL (0.0-0.2) 02/06/17 00:05 PT 10.5 Seconds (9.8-13.1) 02/06/17 00:05 INR 0.9 (0.9-1.2) 02/06/17 00:05 APTT 27.5 Seconds (25.6-37.1) 02/06/17 00:05 Sodium 132 mmol/l (132-148) 02/06/17 00:05 Potassium 5.4 MMOL/L (3.6-5.0) H 02/06/17 00:05 Chloride 89 mmol/L (98-107) L 02/06/17 00:05 Carbon Dioxide 34 mmol/L (22-30) H 02/06/17 00:05 Anion Gap 14 (10-20) 02/06/17 00:05 BUN 37 mg/dl (7-17) H 02/06/17 00:05 Creatinine 0.7 mg/dL (0.7-1.2) 02/06/17 00:05 Est GFR ( Amer) > 60 02/06/17 00:05 Est GFR (Non-Af Amer) > 60 02/06/17 00:05 POC Glucose (mg/dL) 88 mg/dL (65-110) 02/06/17 11:21 Random Glucose 186 mg/dL (65-105) H 02/06/17 00:05 Lactic Acid 2.6 MMOL/L (0.7-2.1) H 02/06/17 00:05 Calcium 9.1 mg/dL (8.4-10.2) 02/06/17 00:05 Total Bilirubin 0.6 mg/dl (0.2-1.3) 02/06/17 00:05 AST 99 U/L (14-36) H D 02/06/17 00:05 ALT 65 U/L (9-52) H D 02/06/17 00:05 Alkaline Phosphatase 200 U/L (38-126) H D 02/06/17 00:05 Troponin I 0.0220 ng/mL (0.00-0.120) 02/06/17 00:05 NT-Pro-B Natriuret Pep 6970 pg/ml (0-900) H 02/06/17 00:05 Total Protein 7.0 G/DL (6.3-8.2) 02/06/17 00:05 Albumin 3.3 g/dL (3.5-5.0) L 02/06/17 00:05 Globulin 3.7 gm/dL (2.2-3.9) 02/06/17 00:05 Albumin/Globulin Ratio 0.9 (1.0-2.1) L 02/06/17 00:05 Urine Color Yellow (YELLOW) 02/05/17 23:46 Urine Clarity Slighty-cloudy (Clear) 02/05/17 23:46 Urine pH 7.0 (5.0-8.0) 02/05/17 23:46 Ur Specific [place] 1.013 (1.003-1.030) 02/05/17 23:46 Urine Protein 100 mg/dL (NEGATIVE) 02/05/17 23:46 Urine Glucose (UA) 150 mg/dL (Normal) 02/05/17 23:46 Urine Ketones Negative mg/dL (NEGATIVE) 02/05/17 23:46 Urine Blood Negative (NEGATIVE) 02/05/17 23:46 Urine Nitrate Negative (NEGATIVE) 02/05/17 23:46 Urine Bilirubin Negative (NEGATIVE) 02/05/17 23:46 Urine Urobilinogen 0.2-1.0 mg/dL (0.2-1.0) 02/05/17 23:46 Ur Leukocyte Esterase Large Nabeel/uL (Negative) 02/05/17 23:46 Urine RBC (Auto) 11 /hpf (0-3) H 02/05/17 23:46 Urine Microscopic WBC 65 /hpf (0-5) H 02/05/17 23:46 Urine Bacteria Few (<OCC) H 02/05/17 23:46 Digoxin 1.3 ng/mL (0.8-2.0) 02/06/17 00:05 Influenza Typ A,B (EIA) Negative for flu a/b (NEGATIVE) 02/06/17 00:43 - Hospital Course Hospital Course: 71 YO F w/ PMH of atrial fib, hypertension and respiratory failure, COPD who was recently discharged to a sub acute rehab facility. She was sent back to [facility] as per chart for unspecified seizure activity and as per nurse the patient oxygen level had dropped. Patient is no able to vocalize her history. No seizure like activity was noted while patients stay. PAtient has been saturating well. Discharge Exam - Head Exam Head Exam: ATRAUMATIC, NORMOCEPHALIC - Eye Exam Eye Exam: Normal appearance - Neck Exam Additional comments: trach - Respiratory Exam Respiratory Exam: Decreased Breath Sounds, Rales, NORMAL BREATHING PATTERN - Cardiovascular Exam Cardiovascular Exam: REGULAR RHYTHM, +S1, +S2 - GI/Abdominal Exam GI & Abdominal Exam: Normal Bowel Sounds, Soft. absent: Tenderness - Neurological Exam Neurological exam: Alert, CN II-XII Intact - Skin Skin Exam: Normal Color, Warm Discharge Plan - Follow Up Plan Condition: FAIR Disposition: REHAB FACILITY/REHAB UNIT Instructions: Acute Respiratory Distress Syndrome (DC), Hypoxia (GEN) Additional Instructions: pt. doing well; sitting up in bed, pt. denies sob, cp, johnson, dizziness lungs CTA, in NAD. Afebrile VSS chest xray; no changes above discussed with , Dr. Mosqueda pt. completed tx of IV Abx-d/w dr. Mosqueda pt. cleared for discharge to [facility] under cont. trach care , TF via Peg Referrals: Nura Templeton MD [Staff Provider] -
[2017-02-06] MEDS ORDERED: Digoxin 125 mcg (0.125 mg) Tab GT SCH (18:00)
[2017-02-06] MEDS ORDERED: Acetylcysteine 10% 4 ML IH SCH (20:00)
== END 2017-02-06 15:30 ==
LOC: H.ER 23:35 → H.ERHOLD 02-06 01:23 → H.MEDSURG1 02-06 02:54
PROVIDERS: ADMIT Family Medicine; ATTEND Family Medicine
DX: R56.9 Unspecified convulsions (principal); R06.03 Acute respiratory distress; N39.0 Urinary tract infection, site not specified; B96.89 Other specified bacterial agents as the cause of diseases classified elsewhere; I48.91 Unspecified atrial fibrillation; I50.9 Heart failure, unspecified; I11.0 Hypertensive heart disease with heart failure; E11.9 Type 2 diabetes mellitus without complications; E78.00 Pure hypercholesterolemia, unspecified; J44.9 Chronic obstructive pulmonary disease, unspecified; F03.90 Unspecified dementia, unspecified severity, without behavioral disturbance, psychotic disturbance, mood disturbance, and anxiety; Z87.09 Personal history of other diseases of the respiratory system
CPT/HCPCS: 70450; 71010; 80053; 80162; 81003; 82948; 83605; 83880; 84484; 85025; 85610; 85730; 87040; 87086; 87181; 87804; 93005; 96365; 99285; A4322; G0378; J0696

== ENCOUNTER 2017-02-07 15:31 | Inpatient (IN) | payer MEDICARE ==
[2017-02-07] MEDS ORDERED: Sodium Chloride 0.9% 1,000 ML IV STA ×2 (15:43→16:04)
--- NOTE | 2017-02-07 15:54 | ED PDOC ---
HPI: General Adult Chief Complaint (Nursing): Cardiac Arrest Chief Complaint (Provider): Respiratory Arrest History Per: EMS History/Exam Limitations: clinical condition (Patient unresponsive) Onset/Duration Of Symptoms: Hrs Additional Complaint(s): Patient is a 71 y/o female with a past medical history of anemia, atrial fibrillation, cardiac arrhythmia, congestive heart failure, emphysema, hypertension, hypercholesterolemia, and pneumonia brought to the ED by paramedics from [facility], who were summoned due to possible respiratory arrest. On arrival to [facility], paramdeics report finding patient to be apneic with sinus bradycardia on monitor. They report the patient was suctioned via tracheostomy tube at the [facility] with improvement in oxygen saturation , heart rate, and blood pressure. Paramdeics report no medications were given and no CPR administered prior to arrival. PCP: Provider SHAUNA Past Medical History Reviewed: Historical Data, Nursing Documentation, Vital Signs Vital Signs: Last Vital Signs Temp 96.4 F L 02/07/17 16:15 Pulse 75 02/07/17 15:39 Resp 16 02/07/17 15:39 BP 147/84 02/07/17 15:39 Pulse Ox 100 02/07/17 15:39 - Medical History PMH: Anemia, Atrial Fibrillation, Cardia Arrhythmia, CHF, Dementia, Emphysema, HTN, Hypercholesterolemia, Pneumonia Denies: Asthma, COPD, HIV, Chronic Kidney Disease - Surgical History Other surgeries: eye surgery - Family History Family History: States: No Known Family Hx, Unknown Family Hx - Social History Current smoker - smoking cessation education provided: No Ex-Smoker (has not smoked in the last 12 months): No Alcohol: None Drugs: Denies - Immunization History Hx Tetanus Toxoid Vaccination: No Hx Influenza Vaccination: Yes (2015) Hx Pneumococcal Vaccination: No - Home Medications Home Medications: Ambulatory Orders Medication Instructions Recorded Acetylcysteine [Mucomyst 10% 4ML] 2 ml IH RBID carlyn 02/04/17 Albuterol/Ipratropium [Duoneb 3 3 ml INH RQ4 neb 02/04/17 mg/0.5 mg (3 ml) UD] Digoxin [Lanoxin] 0.125 mg PEG DAILY@1800 02/06/17 Famotidine [Pepcid] 20 mg PEG Q12 02/06/17 Insulin Human Regular [HumuLIN R] 0 units SC ACHS ml 02/06/17 Labetalol [Trandate] 100 mg PEG Q8 02/06/17 Lactulose [Enulose] 20 gm PEG DAILY 02/06/17 Rivaroxaban [Xarelto] 15 mg PEG DAILY 02/06/17 amLODIPine [Norvasc] 5 mg PEG DAILY 02/06/17 predniSONE [predniSONE Tab] 10 mg PEG DAILY 02/06/17 - Allergies Allergies/Adverse Reactions: Allergies Allergy/AdvReac Type Severity Reaction Status Date / Time No Known Allergies Allergy Verified 02/07/17 15:49 Review of Systems Review Of Systems: ROS cannot be obtained secondary to pt's inabilty to answer questions. Physical Exam - Reviewed Nursing Documentation Reviewed: Yes Vital Signs Reviewed: Yes - Physical Exam Appears: Positive for: In Acute Distress (unresponsive) Head Exam: Positive for: ATRAUMATIC, NORMOCEPHALIC Skin: Positive for: Normal Color, Warm, Dry Neck: Positive for: Normal, Supple Cardiovascular/Chest: Positive for: Regular Rate, Rhythm. Negative for: Murmur Respiratory: Positive for: Normal Breath Sounds (equal bilaterally with bagging) , Other (no spontaneous respiration noted). Negative for: Respiratory Distress Back: Positive for: Normal Inspection. Negative for: L CVA Tenderness, R CVA Tenderness, Vertebral Tenderness Extremity: Positive for: Normal ROM. Negative for: Tenderness, Pedal Edema, Swelling Neurologic/Psych: Positive for: Other (Unresponsive to verbal or painful stimuli , no spontaneous movement, withdraws to pain) - Laboratory Results Result Diagrams: 02/07/17 15:51 Medical Decision Making Medical Decision Making: Time: 1542 Initial Impression: Respiratory arrest, possibly due to tracheal obstruction Initial Plan: --Arterial blood gas --ABG shock panel --EKG --Labs --Troponin I --Chest X-Ray --Sodium Chloride 0.9% 150 mls/hr --Urinary Catheter --Admit to Hospital Routine --Inpatient/OBS --Urinalysis Time: 1604 --Ventilator settings --Sodium Chloride 0.9% 1000 mls/hr --Vancomycin 1gm Sodium chloride 0.9% 250ml IVPB --Piperacill/Tazo 3.375gm in 50ml IVPB --Blood Culture Scribe Attestation: Documented by Catrachita Javier, acting as a scribe for Jaison Martinez MD. Provider Scribe Attestation: All medical record entries made by the Scribe were at my direction and personally dictated by me. I have reviewed the chart and agree that the record accurately reflects my personal performance of the history, physical exam, medical decision making, and the department course for this patient. I have also personally directed, reviewed, and agree with the discharge instructions and disposition. Disposition - Clinical Impression Clinical Impression: Respiratory failure, Pneumonia, Sepsis - Patient ED Disposition Is Patient to be Admitted: Yes - Disposition Disposition Time: 16:17 Condition: GUARDED - Pt Status Changed To: Hospital Disposition Of: Inpatient - Admit Certification Admit to Inpatient:: After my assessment, the patient will require hospitalization for at least two midnights. This is because of the severity of symptoms shown, intensity of services needed, and/or the medical risk in this patient being treated as an outpatient. - POA Present On Arrival: None
[2017-02-07 15:56] LABS: BASO % 0.6 % (0.0-2.0); EOS # 0.1 K/uL (0.0-0.7); EOS % 1.5 % (0.0-4.0); HEMATOCRIT 31.6 % (34.0-47.0); LYMPH # 1.1 K/uL (1.0-4.3); LYMPH % 16.7 % (20.0-40.0); MEAN CELL VOLUME 92.9 fl (81.0-99.0); MEAN CORPUSCULAR HEMOGLOBIN 29.9 pg (27.0-31.0); MEAN CORPUSCULAR HGB CONC 32.2 g/dL (33.0-37.0); MEAN PLATELET VOLUME 7.7 fl (7.2-11.7); MONO # 0.5 K/uL (0.0-0.8); NEUT # 5.1 K/uL (1.8-7.0); NEUT % 74.2 % (50.0-75.0); NRBC % 0.1 % (0.0-0.0); RED CELL DISTRIBUTION WIDTH 21.3 % (11.5-14.5); WHITE BLOOD COUNT 6.9 K/uL (4.8-10.8)
[2017-02-07 16:02] LABS: ABG ALLEN TEST YES; ABG MECHANICAL RATE 12; ARTERIAL BLOOD GAS HCO3 27.6 mmol/L (21-28); ARTERIAL BLOOD GAS MODE PRVC/AC; ARTERIAL BLOOD GAS PH 7.25 (7.35-7.45); ARTERIAL BLOOD GAS PO2 311 mm/Hg (80-100); ATERIAL BLOOD GAS PEEP 5
--- NOTE | 2017-02-07 16:04 | RAD ---
HISTORY: cough COMPARISON: 02/05/2017 FINDINGS: The tracheostomy tube is in stable position. LUNGS: There is persistent severe pulmonary venous congestion and mild interstitial pulmonary edema. No focal consolidation in the right lung. There is a persistent left retrocardiac opacity. PLEURA: There is blunting of the left costophrenic angle, no pneumothorax apparent. No large right pleural effusion. CARDIOVASCULAR: Stable cardiomegaly. OSSEOUS STRUCTURES: No significant abnormalities. VISUALIZED UPPER ABDOMEN: Normal. OTHER FINDINGS: None. IMPRESSION: 1. Stable cardiomegaly and pulmonary venous congestion with mild interstitial pulmonary edema. 2. Persistent left lower lobe atelectasis/pneumonia and small left pleural effusion. Follow-up is advised.
[2017-02-07] MEDS ORDERED: Piperacill/Tazo 3.375gm in Dex 3.375 GM/50 ML BAG IVPB STA (16:06)
[2017-02-07 16:12] LABS: ALKALINE PHOSPHATASE 171 U/L (38-126); ALT/SGPT 86 U/L (9-52); AST/SGOT 109 U/L (14-36); BILIRUBIN,TOTAL 0.3 mg/dl (0.2-1.3); BLOOD UREA NITROGEN 45 mg/dl (7-17); CARBON DIOXIDE 28 mmol/L (22-30); CHLORIDE 94 mmol/L (98-107); GFR AFRICAN-AMERICAN > 60; GLUCOSE,RANDOM 231 mg/dL (65-105); SODIUM 135 mmol/l (132-148)
[2017-02-07] MEDS ORDERED: Vancomycin 1 g Inj ONE (16:15)
[2017-02-07 16:16] LABS: ALB/GLOB RATIO 0.9 (1.0-2.1); POTASSIUM 5.8 MMOL/L (3.6-5.0)
[2017-02-07] MEDS ORDERED: Insulin Regular 100 units/ml IV STA (16:19)
[2017-02-07] MEDS ORDERED: Dextrose 50% SYRINGE Inj (50 ml) IVP ONE (16:22)
[2017-02-07] MEDS ORDERED: Sodium Bicarbonate 7.5% (0.9 MEQ/ML) 50ML INJ IV ONE (16:22)
[2017-02-07] MEDS ORDERED: Albuterol 0.083% Inhal Sol (2.5 mg/3 mL) UD INH STA (16:23)
[2017-02-07] MEDS ORDERED: Sod Polystyrene Sulf 15 gm/60 ml Susp PO ONE (16:23)
[2017-02-07] MEDS ORDERED: Albuterol 0.083% Inhal Sol (2.5 mg/3 mL) UD ONE (16:33)
[2017-02-07] MEDS ORDERED: Insulin Regular 100 units/ml ONE (16:34)
[2017-02-07] MEDS ORDERED: Dextrose 50% SYRINGE Inj (50 ml) ONE (16:34)
[2017-02-07 16:58] LABS: RBC URINE 9 /hpf (0-3); URINE BACTERIA RARE (<OCC); URINE BILIRUBIN NEGATIVE (NEGATIVE); URINE BLOOD SMALL (NEGATIVE); URINE COLOR YELLOW (YELLOW); URINE GLUCOSE (UA) >=500 mg/dL (Normal); URINE KETONE NEGATIVE (NEGATIVE); URINE LEUKOCYTE ESTERASE TRACE Leu/uL (Negative); URINE PROTEIN 100 mg/dL (NEGATIVE); URINE UROBILINOGEN 0.2-1.0 mg/dL (0.2-1.0); WBC URINE 10 /hpf (0-5)
[2017-02-07] MEDS ORDERED: Sodium Chloride 0.9% 1,000 ML IV SCH (17:30)
[2017-02-07 20:09] LABS: ABG ALLEN TEST YES; ABG MECHANICAL RATE 14; ARTERIAL BLOOD GAS HCO3 34.6 mmol/L (21-28); ARTERIAL BLOOD GAS MODE PRVC/AC; ARTERIAL BLOOD GAS PH 7.52 (7.35-7.45); ARTERIAL BLOOD GAS PO2 149 mm/Hg (80-100); ATERIAL BLOOD GAS PEEP 5
[2017-02-07] MEDS ORDERED: Acetylcysteine 10% 4 ML IH ONE (22:32)
[2017-02-07] MEDS ORDERED: Albuterol-Ipratrop 3 mg / 0.5 (3 ml) UD ONE (22:34)
[2017-02-07] MEDS: Albuterol-Ipratrop 3 mg / 0.5 (3 ml) UD INH SCH (22:37)
[2017-02-07] MEDS: Acetylcysteine 10% 4 ML IH SCH (22:41)
--- NOTE | 2017-02-08 05:08 | CON ---
DATE: 02/07/2017HISTORY OF PRESENT ILLNESS: The patient is seen and examined at the bedside. Well known to ICU from her previous admission requiring tracheostomy for vent-dependent respiratory failure. The patient is a poor historian; I am not able to get much information from her. Events in ER noted. Previous ICU stay reviewed. A 71-year-old female, chronic reformed smoker with chronic obstructive pulmonary disease, chronic disease anemia, paroxysmal atrial fibrillation, abnormal LFTs with status post multiple admissions for hypercapnic respiratory failure, underwent tracheostomy with discharge from hospital to senior living, noted to be lethargic. EMS was called brought the patient to emergency room. In ER, the patient's vital signs showed temperature normal, heart rate 75, respiratory rate 16, blood pressure 147/84, intubated. Chest x-ray showed persistent infiltrate/atelectasis, left base. Admitted to ICU. Code sepsis called because of the lactate level, given IV fluid. ABG on admission showed a pH of 7.25, pCO2 of 75, pO2 of 311 on AC/PRBC 12, 380, 100%. The patient was treated with albuterol, IV fluid, and vancomycin. ALLERGIES: THE PATIENT HAS NO KNOWN ALLERGY. AMBULATORY MEDICATIONS: Include albuterol/Atrovent q.4, Mucomyst 2 mL b.i.d., digoxin 0.125 PEG daily, Pepcid 20 mg q. 12, Accu-Chek with regular insulin coverage, labetalol 100 mg PEG q. 8 hours, prednisone 10 mg PEG daily, Xarelto 10 mg PEG at bedtime, and vitamin A and D one application q. 8 hours. PHYSICAL EXAMINATION: GENERAL: Elderly female, cachectic. VITAL SIGNS: Temperature 96.4 rectally, heart rate 75, blood pressure 147/84, oxygen saturation 100% on FiO2 at 60%, intake and output to be documented. HEAD, EYE, NOSE, AND THROAT: Pupils are reactive. Conjunctivae are pink. Sclerae are white. Tracheostomy site clear, no discharge noted, no secretions on the tracheostomy noted. HEART: Rhythm regular. S1, S2 normal. ABDOMEN: PEG in place. Bowel sounds present, nontender. EXTREMITIES: Trace edema. Peripheral pulses intact. No palpable cord. SKIN: Without rash. No sacral breakdown noted. LABORATORY DATA: WBC 6.9, hemoglobin 10.2, hematocrit 31.6, platelet count 168. PT 11.3, INR 1, PTT 27.6. SMA-7: Sodium 135, potassium 5.8, chloride 94, BUN 45, creatinine 0.8, glucose 231. AST 109, ALT 86. Alkaline phosphatase 171. Troponin 0.03. Total protein 7, albumin 3.4. Urinalysis: rbc 19, wbc 3, urine yeast with hyphae rare. Sodium random 72, random potassium 49.2. Toxicology: Digoxin level 1.2 on 01/10. Sputum culture on 01/29, Stenotrophomonas maltophilia. Tracheal aspirate on 01/10, Staphylococcus aureus. IMPRESSION: Hypercapnic hypoxic respiratory failure, possibly related to hypoventilation. No clear evidence of central apnea. History of chronic obstructive pulmonary disease. PLAN: Continue with vent, reduce FiO2 as tolerated. DuoNeb 3 mL via nebulizer q. 6, Mucomyst 10% 2 mL via nebulizer q. 12. Continue GI prophylaxis. Reduce IV fluid to 50 mL per hour given chest x-ray shows pulmonary vascular congestion. Pulmonary consult and ID consult. Follow up lactic acid level. Lovenox 30 mg subcutaneous daily. Marcel Brown MD MTDD
[2017-02-08] MEDS ORDERED: Albuterol-Ipratrop 3 mg / 0.5 (3 ml) UD ONE (08:16)
[2017-02-08] MEDS ORDERED: Acetylcysteine 10% 4 ML IH ONE (08:19)
[2017-02-08] MEDS: Albuterol-Ipratrop 3 mg / 0.5 (3 ml) UD INH SCH ×4 (08:26→19:03)
[2017-02-08] MEDS: Acetylcysteine 10% 4 ML IH SCH ×2 (08:26→19:04)
[2017-02-08] MEDS: Dextrose 5%/0.9% NS 1,000 ML IV SCH ×2 (08:59→21:59)
[2017-02-08 09:06] LABS: ABG ALLEN TEST YES; ABG MECHANICAL RATE 12; ARTERIAL BLOOD GAS HCO3 34.1 mmol/L (21-28); ARTERIAL BLOOD GAS MODE A/C; ARTERIAL BLOOD GAS O2 CAPACITY 15.8 mL/dL (16-24); ARTERIAL BLOOD GAS O2 CONTENT 15.8 ML/dL (15-23); ARTERIAL BLOOD GAS PH 7.56 (7.35-7.45); ARTERIAL BLOOD GAS PO2 243 mm/Hg (80-100); ARTERIAL BLOOD HGB O2 SAT 97.4 % (95.0-98.0); ATERIAL BLOOD GAS PEEP 5; CARBOXYHEMOGLOBIN 1.1 % (0.5-1.5); HHB 0.2 % (0.0-5.0); METHEMOGLOBIN 1.2 % (0.0-3.0)
[2017-02-08] MEDS: Digoxin 125 mcg (0.125 mg) Tab PO SCH (09:16)
[2017-02-08 09:29] LABS: HEMATOCRIT 24.3 % (34.0-47.0); MEAN CELL VOLUME 89.4 fl (81.0-99.0); MEAN CORPUSCULAR HEMOGLOBIN 30.3 pg (27.0-31.0); MEAN CORPUSCULAR HGB CONC 33.9 g/dL (33.0-37.0); RED CELL DISTRIBUTION WIDTH 21.2 % (11.5-14.5); WHITE BLOOD COUNT 5.5 K/uL (4.8-10.8)
[2017-02-08 09:40] LABS: BLOOD UREA NITROGEN 36 mg/dl (7-17); CALCIUM 8.5 mg/dL (8.4-10.2); CARBON DIOXIDE 32 mmol/L (22-30); CHLORIDE 99 mmol/L (98-107); GFR AFRICAN-AMERICAN > 60; GLUCOSE,RANDOM 74 mg/dL (65-105); SODIUM 141 mmol/l (132-148)
--- NOTE | 2017-02-08 10:36 | RAD ---
HISTORY: Reevaluate COMPARISON: 02/07/2017 FINDINGS: The tracheostomy tube is stable in position terminating in the mid trachea. The nasogastric tube terminates in the stomach. LUNGS: The lungs are hyperinflated. There is severe pulmonary venous congestion. There is ill-defined haziness in the peripheral right lung and a right lower lobe, new since the prior examination PLEURA: No significant pleural effusion identified, no pneumothorax apparent. CARDIOVASCULAR: The heart remains enlarged. OSSEOUS STRUCTURES: No significant abnormalities. VISUALIZED UPPER ABDOMEN: Normal. OTHER FINDINGS: None. IMPRESSION: Question of developing pulmonary edema versus multifocal pneumonia in the right lung. Persistent pulmonary venous congestion.
[2017-02-08] MEDS ORDERED: Sodium Chloride 3% for Inhalation 4 ML VIAL.NEB IH PRN (12:16)
[2017-02-08] MEDS ORDERED: methylPREDNISolone 20 MG in Sodium Chloride 0.9% 50 ML IV SCH (12:30)
[2017-02-08] MEDS: MethylPREDNISolone 40 mg Vial IVP SCH ×2 (13:00→18:28)
--- NOTE | 2017-02-08 16:11 | PN ---
DATE: 02/08/2017 CRITICAL CARE PROGRESS NOTE LOCATION: Patient in ICU, bed 425. TIME SPENT: 35 minutes. SUBJECTIVE: Patient is seen and examined at the bedside. Past medical, surgical, and social history reviewed. Overnight, intubated on mechanical ventilation, AC, on CPAP pressure support 12, FiO2 40%, observed rate 23, exhaled tidal volume 210, minute ventilation 4.6 L, oxygen saturation 100%, end-tidal CO2 32. PHYSICAL EXAMINATION: VITAL SIGNS: Temperature 100.1, heart rate 78 to 97, telemetry with occasional ectopics, blood pressure 133/77, respiratory rate 23 to 26. Intake 2000, output 600, positive balance 1400. Weight 80 pounds. HEENT: Pupils reactive. Conjunctivae pink. Sclerae white. NECK: Supple. Tracheostomy site with no secretions. CHEST: Bilateral breath sounds, diminished in intensity. Expiration prolonged. HEART: Rhythm regular with ectopics. ABDOMEN: Bowel sounds present. Site of previous PEG insertion open with mucoid discharge. No erythema. EXTREMITIES: Trace edema. No palpable cord. DP palpable. NEUROLOGIC: Alert, awake, slow, does not follow commands. No distress noted. CURRENT MEDICATIONS: Include DuoNeb 3 mL via nebulizer q. 6 hours, Mucomyst 10% 2 mL q. 12, Solu-Medrol 20 mg IV push q. 8 hours, Norvasc 5 mg NG daily, Lanoxin 0.125 mg NG daily, labetalol 100 mg NG daily, Accu-Chek with regular insulin coverage, D5 normal at 75 mL per hour, lactobacillus 1 capsule twice daily, Zosyn 3.375 g IV q. 6 hours, Xarelto 10 mg daily. LABORATORY DATA: WBC 5.5, hemoglobin 8.2, hematocrit 24.3, platelet count 151. PT 10.5, INR 0.9, PTT 27.5. ABG; pH 7.56, pCO2 of 39, pO2 243, bicarb 34.1, on AC 12, 380, 60%, PEEP 5. SMA-7; sodium 141, potassium 4, chloride 99, CO2 of 32, anion gap 14, BUN 36, creatinine 0.7. Urinalysis; wbc's 10, digoxin level 1.2. Serology: Influenza A and B negative. Microbiology: Urine culture positive for Gram-positive cocci, ID pending. Blood culture, no growth. Sputum culture, pending. IMPRESSION: 1. Pulmonary: A. Hypercapnic hypoxic respiratory failure. B. Chronic obstructive pulmonary disease. C. Chest x-ray suggesting possible pneumonia, right lung. Continue bronchodilator q. 6 hours, short-course systemic steroid, Mucomyst 10% 2 mL q. 12 hours, antibiotic Zosyn 3.375 g IV q. 6, follow lactic acid level and procalcitonin level. 2. Cardiac: Paroxysmal atrial fibrillation, controlled on beta alexandra and digoxin. Hypertension, on Norvasc 5 mg daily, continue labetalol. 3. Infectious Disease: A. Aspiration pneumonia, new infiltrate on the right lung. B. Mucoid discharge at the previous site of PEG insertion. C. Gram-positive cocci in urine culture, continue Zosyn 3.375 g q. 6 hours. 4. Hematology: Leukocytosis resolved. Anemia of chronic disease, will start iron and supplement with multivitamin daily. 5. Endocrine: Hyperglycemia secondary to steroid. Follow hemoglobin A1c, continue Accu-Check with regular insulin coverage. 6. Gastrointestinal prophylaxis: Pepcid 20 mg b.i.d., lactose 1 capsule daily. 7. Deep venous thrombosis prophylaxis, on Lovenox subcu daily. Marcel Brown MD MTDD
--- NOTE | 2017-02-08 16:39 | CARD ---
APPROVED REPORT EKG Measurement Heart [id number] <Conclusion> Normal sinus rhythm Possible Left atrial enlargement Left axis deviation Anterior infarct, age undetermined ST & T wave abnormality, consider inferior ischemia Abnormal ECG
[2017-02-08] MEDS: Lactobacillus Acidophilus 500 MU Cap PO SCH (18:27)
[2017-02-08] MEDS: Piperacill/Tazo 3.375gm in Dex 3.375 GM/50 ML BAG IVPB SCH ×2 (18:32→21:15)
[2017-02-08] MEDS: Insulin Regular 100 units/ml SC SCH ×2 (18:33→22:03)
--- NOTE | 2017-02-08 19:04 | CON ---
DATE: HISTORY OF PRESENT ILLNESS: Ms. Gardner is a 71-year-old female with history of chronic obstructive pulmonary disease, chronic tracheostomy, atrial fibrillation, bedridden, with other remarkable history of renal failure and dehydration, who is confined to group home, was transferred to the emergency room yesterday because of acute respiratory failure, probably secondary to mucous plugging of the airways. She was recently discharged from the hospital to a group home facility and returned in a lethargic condition. She is presently on the ventilator and appears much more comfortable. She is unable to give any history, looks chronically ill. PHYSICAL EXAMINATION: VITAL SIGNS: Remarkable for blood pressure of 140/74, pulse of 91, respiratory rate on the ventilator, O2 sat 100% on present vent settings, temperature of 100.1 degrees Fahrenheit. GENERAL: Patient appears cachectic, responds to touch and painful stimuli. HEENT: Eyes are sunken. Mouth, dry mucosa. There is tracheostomy, which appears clean and seems to be in place. LUNGS: Fair aeration with coarse bilateral rales. HEART: S1, S2. BREASTS: Normal. ABDOMEN: Soft. No tenderness appreciated. No organomegaly. EXTREMITIES: Slightly contracted. LABORATORY DATA: Remarkable for WBC of 5.5, hemoglobin 8.2, platelet count of 151,000. Sodium 141, potassium 4.0, BUN 36, creatinine 0.7. Urinalysis, rare bacteria. Digoxin level 1.2. Arterial blood gas that was done on admission showed a pH of 7.25, pCO2 of 75, pO2 of 311, O2 saturation 100%. This was done on 100% FIO2. Lactate level 5.4. IMPRESSION: Acute hypercapnic respiratory failure, probably secondary to mucous plugging of airways and probable aspiration pneumonia, systemic inflammatory response syndrome with septicemia due to probable pneumonia (chest x-ray is remarkable for severe venous congestion of both lungs with interstitial pulmonary edema, persistent left retrocardiac opacity). PLAN: Would be septic workup, ventilator management. Sputum will be sent for cultures. Suction airways as needed with pulmonary toiletry as well as bronchodilators and IV antibiotics. We will continue to follow with you. Further therapy will depend on findings. Hira Watson MD
--- NOTE | 2017-02-08 20:14 | CP.PCM.HP ---
History of Present Illness - History of Present Illness History of Present Illness: This is a 71 y/0 female sent back from [facility] after having episodes of sudden SOB. EMT were called and performed suctioning through the tracheostomy tube which resulted to improvement respiration and oxygen saturation. No chest compression was performed. At the Er the patoent was much more comfortable and was not in distress. She has been in the hospital for pneumonia and respiratory failure where she has been on vent support for sometime. A tracheostomy tube was placed and transferred back to [facility]. Past medical Hx: HTn Atrial fibrillation COPD anemia DM 2 Present on Admission - Present on Admission Any Indicators Present on Admission: No History of DVT/PE: No History of Uncontrolled Diabetes: Yes Urinary Catheter: No Decubitus Ulcer Present: No Review of Systems - Respiratory Respiratory: Dyspnea, Excessive Mucous Production Past Patient History - Infectious Disease Hx of Infectious Diseases: None - Tetanus Immunizations Tetanus Immunization: Unknown - Past Medical History & Family History Past Medical History?: Yes - Past Social History Smoking Status: Never Smoked - CARDIAC Hx Cardiac Disorders: Yes Hx Cardia Arrhythmia: Yes - PULMONARY Hx Respiratory Disorders: Yes Hx Pneumonia: Yes - NEUROLOGICAL Hx Neurological Disorder: Yes Hx Dementia: Yes - HEENT Hx HEENT Problems: Yes Hx Cataracts: Yes (both eyes) - RENAL Hx Chronic Kidney Disease: No - ENDOCRINE/METABOLIC Hx Endocrine Disorders: Yes - HEMATOLOGICAL/ONCOLOGICAL Hx AIDS: No Hx Anemia: Yes Hx Human Immunodeficiency Virus (HIV): No - INTEGUMENTARY Hx Dermatological Problems: Yes Other/Comment: skin dryness - MUSCULOSKELETAL/RHEUMATOLOGICAL Hx Musculoskeletal Disorders: Yes Hx Falls: No - GASTROINTESTINAL Hx Gastrointestinal Disorders: Yes Other/Comment: Hx Peg tube. Hx Malnutrition. Hx Transaminitis - GENITOURINARY/GYNECOLOGICAL Hx Genitourinary Disorders: Yes - PSYCHIATRIC Hx Psychophysiologic Disorder: No Hx Substance Use: No (unknown) - SURGICAL HISTORY Hx Surgeries: Yes Hx Cataract Extraction: Yes (2014) Hx Eye Surgery: Yes - ANESTHESIA Hx Anesthesia: Yes Hx Anesthesia Reactions: No Hx Malignant Hyperthermia: No Meds Allergies/Adverse Reactions: Allergies Allergy/AdvReac Type Severity Reaction Status Date / Time No Known Allergies Allergy Verified 02/07/17 15:49 Physical Exam - Head Exam Head Exam: NORMAL INSPECTION - Eye Exam Eye Exam: Normal appearance - Respiratory Exam Respiratory Exam: Rhonchi - Cardiovascular Exam Cardiovascular Exam: Irregular Rhythm - GI/Abdominal Exam GI & Abdominal Exam: Normal Bowel Sounds - Neurological Exam Neurological exam: Altered Results - Vital Signs Recent Vital Signs: Last Vital Signs Temp 98.9 F 02/08/17 15:51 Pulse 78 02/08/17 18:28 Resp 24 02/08/17 15:51 BP 98/60 L 02/08/17 18:28 Pulse Ox 100 02/08/17 15:51 - Labs Result Diagrams: 02/08/17 08:40 02/08/17 08:40 Labs: Laboratory Results - last 24 hr 02/08/17 02/08/17 02/08/17 08:40 08:40 08:55 WBC 5.5 RBC 2.72 L Hgb 8.2 L D Hct 24.3 L MCV 89.4 D MCH 30.3 MCHC 33.9 RDW 21.2 H Plt Count 151 pCO2 39 pO2 243 H HCO3 34.1 H ABG pH 7.56 H ABG Total CO2 36.1 H ABG O2 Saturation 99.8 H ABG O2 Content 15.8 ABG Base Excess 11.7 H ABG Hemoglobin 11.1 L ABG Carboxyhemoglobin 1.1 POC ABG HHb (Measured) 0.2 ABG Methemoglobin 1.2 ABG O2 Capacity 15.8 L Rakan Test Yes A-a O2 Difference 136.0 Hgb O2 Saturation 97.4 Vent Mode A/c Mechanical Rate 12 FiO2 60.0 Tidal Volume 380 PEEP 5 Sodium 141 Potassium 4.0 Chloride 99 Carbon Dioxide 32 H Anion Gap 14 BUN 36 H Creatinine 0.7 Est GFR ( Amer) > 60 Est GFR (Non-Af Amer) > 60 POC Glucose (mg/dL) Random Glucose 74 Lactic Acid Calcium 8.5 02/08/17 02/08/17 11:20 14:15 WBC RBC Hgb Hct MCV MCH MCHC RDW Plt Count pCO2 pO2 HCO3 ABG pH ABG Total CO2 ABG O2 Saturation ABG O2 Content ABG Base Excess ABG Hemoglobin ABG Carboxyhemoglobin POC ABG HHb (Measured) ABG Methemoglobin ABG O2 Capacity Rakan Test A-a O2 Difference Hgb O2 Saturation Vent Mode Mechanical Rate FiO2 Tidal Volume PEEP Sodium Potassium Chloride Carbon Dioxide Anion Gap BUN Creatinine Est GFR ( Amer) Est GFR (Non-Af Amer) POC Glucose (mg/dL) 99 Random Glucose Lactic Acid 0.6 L Calcium Assessment & Plan (1) Acute respiratory failure with hypercapnia Status: Acute (2) Pneumonia Status: Acute (3) Dehydration Status: Acute (4) Respiratory distress Status: Acute (5) Atrial fibrillation Status: Chronic (6) Hyperkalemia Status: Resolved - Assessment and Plan (Free Text) Plan: Cont hydration IV antibiotics monitor CBC Pulmonary consult recheck labs suction secretions
[2017-02-09] MEDS: MethylPREDNISolone 40 mg Vial IVP SCH ×3 (01:02→16:38)
[2017-02-09] MEDS: Piperacill/Tazo 3.375gm in Dex 3.375 GM/50 ML BAG IVPB SCH ×4 (04:51→21:22)
[2017-02-09 05:37] LABS: ABG ALLEN TEST YES; ARTERIAL BLOOD GAS HCO3 32.1 mmol/L (21-28); ARTERIAL BLOOD GAS MODE CPAP; ARTERIAL BLOOD GAS O2 CAPACITY 13.5 mL/dL (16-24); ARTERIAL BLOOD GAS O2 CONTENT 13.5 ML/dL (15-23); ARTERIAL BLOOD GAS PH 7.42 (7.35-7.45); ARTERIAL BLOOD GAS PO2 108 mm/Hg (80-100); ARTERIAL BLOOD HGB O2 SAT 96.3 % (95.0-98.0); ATERIAL BLOOD GAS PEEP 0; CARBOXYHEMOGLOBIN 1.8 % (0.5-1.5); METHEMOGLOBIN 1.8 % (0.0-3.0)
[2017-02-09] MEDS: Insulin Regular 100 units/ml SC SCH ×4 (06:32→21:47)
[2017-02-09 07:11] LABS: BLOOD UREA NITROGEN 27 mg/dl (7-17); CALCIUM 9.2 mg/dL (8.4-10.2); CARBON DIOXIDE 30 mmol/L (22-30); CHLORIDE 103 mmol/L (98-107); GFR AFRICAN-AMERICAN > 60; GLUCOSE,RANDOM 162 mg/dL (65-105); POTASSIUM 4.2 MMOL/L (3.6-5.0); SODIUM 140 mmol/l (132-148)
[2017-02-09 07:13] LABS: HEMATOCRIT 29.8 % (34.0-47.0); MEAN CORPUSCULAR HEMOGLOBIN 30.7 pg (27.0-31.0); MEAN CORPUSCULAR HGB CONC 33.8 g/dL (33.0-37.0); RED CELL DISTRIBUTION WIDTH 22.1 % (11.5-14.5); WHITE BLOOD COUNT 5.3 K/uL (4.8-10.8)
[2017-02-09] MEDS: Acetylcysteine 10% 4 ML IH SCH ×2 (07:49→19:44)
[2017-02-09] MEDS: Albuterol-Ipratrop 3 mg / 0.5 (3 ml) UD INH SCH ×4 (07:50→19:44)
[2017-02-09] MEDS: Digoxin 125 mcg (0.125 mg) Tab PO SCH (08:29)
[2017-02-09] MEDS: Multiple Vitamins Oral Solution PO SCH (08:29)
[2017-02-09] MEDS: Lactobacillus Acidophilus 500 MU Cap PO SCH ×2 (08:33→16:36)
--- NOTE | 2017-02-09 08:50 | CP.PCM.PN ---
Subjective - Date & Time of Evaluation Date of Evaluation: 02/09/17 Time of Evaluation: 08:51 - Subjective Subjective: STILL BEING VENTILATED ON CPAP BP ELEVATED Objective - Vital Signs/Intake and Output Vital Signs (last 24 hours): Temp Pulse Resp BP Pulse Ox 98.6 F 85 21 182/95 H 100 02/09/17 08:00 02/09/17 08:00 02/09/17 08:00 02/09/17 08:00 02/09/17 08:00 Intake and Output: 02/09/17 02/09/17 06:59 18:59 Intake Total 775 150 Output Total 600 Balance 175 150 - Medications Medications: Current Medications Acetylcysteine (Mucomyst 10% 4ml) 2 ml IH RBID [facility] Last Admin: 02/09/17 07:49 Dose: 2 ml Albuterol/Ipratropium (Duoneb 3 Mg/0.5 Mg (3 Ml) Ud) 3 ml INH RQID [facility] Last Admin: 02/09/17 07:50 Dose: 3 ml Amlodipine Besylate (Norvasc) 5 mg PO DAILY [facility] Last Admin: 02/08/17 09:16 Dose: 5 mg Digoxin (Lanoxin) 0.125 mg PO DAILY [facility] Last Admin: 02/08/17 09:16 Dose: 0.125 mg Famotidine (Pepcid) 20 mg PO BID [facility] Last Admin: 02/08/17 17:00 Dose: 20 mg Dextrose/Sodium Chloride (Dextrose 5%/0.9% Ns 1000 Ml) 1,000 mls @ 75 mls/hr IV .[id number] [facility] Stop: 02/09/17 08:52 Last Admin: 02/08/17 21:59 Dose: 75 mls/hr Piperacillin Sod/Tazobactam Sod (Zosyn 3.375 Gm Iv Premix) 3.375 gm in 50 mls @ 50 mls/hr IVPB Q6 [facility] PRN Reason: Protocol Last Admin: 02/09/17 04:51 Dose: 50 mls/hr Iron Sucrose 100 mg/ Sodium (Chloride) 105 mls @ 105 mls/hr IVPB DAILY [facility] Insulin Human Regular (Humulin R) 0 units SC ACHS [facility] PRN Reason: Protocol Last Admin: 02/09/17 06:32 Dose: 1 units Labetalol HCl (Trandate) 100 mg PO BID [facility] Last Admin: 02/08/17 18:28 Dose: Not Given Lactobacillus Acidophilus (Bacid Acidophilus) 1 cap PO BID [facility] Last Admin: 02/08/17 18:27 Dose: 1 cap Methylprednisolone (Solu-Medrol) 20 mg IVP Q8 [facility] Last Admin: 02/09/17 01:02 Dose: 20 mg Multivitamins/Vitamin C (Multi-Delyn Liquid) 5 ml PO DAILY [facility] Rivaroxaban (Xarelto) 10 mg PO QD5 [facility] PRN Reason: Protocol Last Admin: 02/08/17 18:29 Dose: 10 mg - Labs Labs: 02/09/17 06:35 02/09/17 06:35 - Constitutional Appears: Chronically Ill - Head Exam Head Exam: ATRAUMATIC, NORMAL INSPECTION, NORMOCEPHALIC - Eye Exam Eye Exam: EOMI, Normal appearance, PERRL Pupil Exam: NORMAL ACCOMODATION, PERRL - ENT Exam ENT Exam: Mucous Membranes Moist, Normal Exam Additional comments: TRACH IN PLACE - Neck Exam Neck Exam: Full ROM, Normal Inspection. absent: Lymphadenopathy - Respiratory Exam Respiratory Exam: Decreased Breath Sounds, Clear to Ausculation Bilateral, Prolonged Expiratory Phase, Rales Additional comments: TRACH IN PLACE - Cardiovascular Exam Cardiovascular Exam: REGULAR RHYTHM, +S1, +S2. absent: Murmur - GI/Abdominal Exam GI & Abdominal Exam: Soft, Normal Bowel Sounds. absent: Tenderness - Rectal Exam Rectal Exam: NORMAL INSPECTION - Extremities Exam Extremities Exam: Full ROM, Normal Capillary Refill, Normal Inspection. absent : Joint Swelling, Pedal Edema - Back Exam Back Exam: NORMAL INSPECTION - Neurological Exam Neurological Exam: Alert, Awake, CN II-XII Intact, Normal Gait, Oriented x3 - Psychiatric Exam Psychiatric exam: Normal Affect, Normal Mood - Skin Skin Exam: Dry, Intact, Normal Color, Warm Assessment and Plan - Assessment and Plan (Free Text) Assessment: RESPIRATORY FAILURE ASPIRATION PNEUMONIA MUCUS PLUGGING OF AIRWAYS COPD HTN Plan: CONTINUE ANTIBIOTIC RX PULMONARY TOILETRY ATTEMPT TO EXTUBATE WHEN STABLE
--- NOTE | 2017-02-09 09:05 | RAD ---
PROCEDURE: CHEST RADIOGRAPH, 1 VIEW HISTORY: pneumonia COMPARISON: 02/08/2017 FINDINGS: LUNGS: No definite infiltrate. Limited examination. There is opacity at the left base silhouetting left hemidiaphragm. This may represent consolidation and/or pleural effusion. Followup evaluation is advised. PLEURA: Possible left pleural effusion. Probable very small right pleural effusion. CARDIOVASCULAR: No congestive change. Nasogastric tube and tracheostomy tube are unchanged. OSSEOUS STRUCTURES: No significant abnormalities. VISUALIZED UPPER ABDOMEN: Normal. OTHER FINDINGS: None. IMPRESSION: Opacity at left base silhouetting left hemidiaphragm. This may represent consolidation and/ pleural effusion. Very small right pleural effusion. No definite infiltrate elsewhere. Tracheostomy tube and nasogastric tube unchanged.
--- NOTE | 2017-02-09 16:29 | PN ---
CRITICAL CARE PROGRESS NOTE DATE: 02/09/2017 LOCATION: The patient in ICU, bed 425. TIME SPENT: 35 minutes. SUBJECTIVE: The patient is seen and evaluated at the bedside. Events since admission are reviewed. Past medical, surgical, and social history noted and reviewed. This case was discussed in ICU rounds this morning. A 71-year-old female, care home resident, with history significant for chronic obstructive pulmonary disease, chronic disease anemia, paroxysmal atrial fibrillation, abnormal LFT with multiple admissions for hypercapnic respiratory failure, status post tracheostomy and PEG insertion x1. Readmitted with hypercapnic respiratory failure secondary to mucus plug and currently on ventilator, on CPAP, pressure support of 12, FiO2 of 40%, observed rate 24, axial tidal volume 230, minute ventilation 5.6 L, saturation 99%, peak airway pressure of 13, end tidal CO2 of 36. No distress noted. Comfortable on the ventilator. No sedation required. PHYSICAL EXAMINATION: VITAL SIGNS: Temperature 98.6, heart rate 87 irregular, blood pressure 145/99, pulse oximetry 100%. Intake 1425, output 800. Positive balance 625. Weight 80 pounds. HEENT: Pupils are reactive. Conjunctivae pink. Senile arcus plus. Tracheostomy site clean. CHEST: Bilateral breath sounds. Prolonged expiration. Clear to auscultation anteriorly and laterally. HEART: Rhythm irregular with ectopics. No audible murmur. ABDOMEN: Bowel sounds present, soft. Mucoid discharge from the previous site of PEG insertion. EXTREMITIES: With dependent edema 1+. DP palpable, reduced in intensity. Stage 2 breakdown at the coccygeal region. NEUROLOGIC: Alert, awake. Eyes open. Does not follow commands. LABORATORY DATA: WBC 5.3, hemoglobin 10.1, hematocrit 29.8, platelet count 173. ABG, pH 7.42, pCO2 of 54, pO2 of 108, bicarbonate 32.1. Oxygen saturation 100% on CPAP, pressure support 12, FiO2 of 40%. SMA-7: Sodium 140, potassium 4.2, chloride 103, CO2 of 30, blood urea nitrogen 27, creatinine 0.7, random glucose 162, calcium 9.2, ferritin 1270, procalcitonin level 3.16. Urinalysis, rbc 9, wbc 10. Digoxin level 1.2. Microbiology: Blood culture, no growth reported. Chest x-ray from this morning: Possible left pleural effusion. Very small right pleural effusion. Opacity at the left base silhouette. Left hemidiaphragm consistent with consolidation and/or pleural effusion. Nasogastric tube and tracheostomy tube unchanged. CURRENT MEDICATIONS: DuoNeb 3 L via nebulizer q.i.d., Mucomyst 10% 2 mL twice daily, Norvasc 5 mg daily, Lanoxin 0.125 mg daily, Pepcid 20 mg p.o. b.i.d., Accu-Chek with regular insulin coverage, Venofer at 100 mg daily, labetalol 100 mg twice daily, lactobacillus one capsule twice daily, Solu-Medrol 20 mg IV q.8h., multivitamin 5 mL p.o. daily, Xarelto 10 mg daily, Zosyn 3.375 g IV q.6 hours. IMPRESSION: 1. Pulmonary: Recurrent hypercapnic hypoxic respiratory failure. Unable to protect the airway and reportedly with mucus plugging. Chronic obstructive pulmonary disease with CO2 retention. Continue DuoNeb, Mucomyst and short-course systemic steroid. 2. Cardiac: Paroxysmal atrial fibrillation. Rhythm controlled. Continue Norvasc 5 mg daily, digoxin 0.125 mg, labetalol 100 mg b.i.d. Hypertension, controlled. 3. Neurologic: Underlying dementia. Status post anoxic brain injury sustained in a previous brief cardiorespiratory arrest. 4. Gastrointestinal: Tolerating nasogastric feeding. Continue gastrointestinal prophylaxis. 5. Hematology: No leukocytosis. Anemia, likely chronic. This is superimposed with iron deficiency, on Venofer and multivitamin. 6. Endocrine: Maintain blood sugar of less than 180. 7. Deep venous thrombosis prophylaxis: Currently, Xarelto 10 mg daily. Continue weaning as tolerated. Marcel Brown MD
[2017-02-10] MEDS: MethylPREDNISolone 40 mg Vial IVP SCH ×3 (00:06→16:45)
--- NOTE | 2017-02-10 00:10 | CP.PCM.PN ---
Subjective - Date & Time of Evaluation Date of Evaluation: 02/09/17 Time of Evaluation: 10:00 - Subjective Subjective: Patient is ventilated. Noted worsening of CXR findings Has no fever. Objective - Vital Signs/Intake and Output Vital Signs (last 24 hours): Temp Pulse Resp BP Pulse Ox 98.1 F 70 25 H 115/64 100 02/09/17 20:00 02/09/17 22:00 02/09/17 22:00 02/09/17 22:00 02/09/17 22:00 Intake and Output: 02/09/17 02/10/17 18:59 06:59 Intake Total 735 135 Output Total 350 Balance 385 135 - Medications Medications: Current Medications Acetylcysteine (Mucomyst 10% 4ml) 2 ml IH RBID [facility] Last Admin: 02/09/17 19:44 Dose: 2 ml Albuterol/Ipratropium (Duoneb 3 Mg/0.5 Mg (3 Ml) Ud) 3 ml INH RQID [facility] Last Admin: 02/09/17 19:44 Dose: 3 ml Amlodipine Besylate (Norvasc) 5 mg PO DAILY [facility] Last Admin: 02/09/17 08:29 Dose: 5 mg Digoxin (Lanoxin) 0.125 mg PO DAILY [facility] Last Admin: 02/09/17 08:29 Dose: 0.125 mg Famotidine (Pepcid) 20 mg PO BID [facility] Last Admin: 02/09/17 16:40 Dose: 20 mg Piperacillin Sod/Tazobactam Sod (Zosyn 3.375 Gm Iv Premix) 3.375 gm in 50 mls @ 50 mls/hr IVPB Q6 [facility] PRN Reason: Protocol Last Admin: 02/09/17 21:22 Dose: 50 mls/hr Iron Sucrose 100 mg/ Sodium (Chloride) 105 mls @ 105 mls/hr IVPB DAILY [facility] Last Admin: 02/09/17 09:35 Dose: 105 mls/hr Insulin Human Regular (Humulin R) 0 units SC ACHS [facility] PRN Reason: Protocol Last Admin: 02/09/17 21:47 Dose: Not Given Labetalol HCl (Trandate) 100 mg PO BID [facility] Last Admin: 02/09/17 16:39 Dose: 100 mg Lactobacillus Acidophilus (Bacid Acidophilus) 1 cap PO BID [facility] Last Admin: 02/09/17 16:36 Dose: 1 cap Methylprednisolone (Solu-Medrol) 20 mg IVP Q8 [facility] Last Admin: 02/10/17 00:06 Dose: 20 mg Multivitamins/Vitamin C (Multi-Delyn Liquid) 5 ml PO DAILY [facility] Last Admin: 02/09/17 08:29 Dose: 5 ml Rivaroxaban (Xarelto) 10 mg PO QD5 [facility] PRN Reason: Protocol Last Admin: 02/09/17 16:39 Dose: 10 mg - Labs Labs: 02/09/17 06:35 02/09/17 06:35 - Head Exam Head Exam: NORMAL INSPECTION - Eye Exam Eye Exam: Normal appearance - Respiratory Exam Respiratory Exam: Decreased Breath Sounds, Rales - Cardiovascular Exam Cardiovascular Exam: Irregular Rhythm - GI/Abdominal Exam GI & Abdominal Exam: Normal Bowel Sounds - Extremities Exam Extremities Exam: Full ROM - Neurological Exam Neurological Exam: Awake Assessment and Plan (1) Acute respiratory failure with hypercapnia Status: Acute (2) Pneumonia Status: Acute (3) Dehydration Status: Acute (4) Respiratory distress Status: Acute (5) Atrial fibrillation Status: Chronic - Assessment and Plan (Free Text) Plan: cont meds cont tx monior cbc cmp CXR cont tx [facility] eval.
[2017-02-10] MEDS: Piperacill/Tazo 3.375gm in Dex 3.375 GM/50 ML BAG IVPB SCH ×4 (03:59→21:08)
[2017-02-10 05:42] LABS: HEMATOCRIT 27.1 % (34.0-47.0); MEAN CELL VOLUME 92.5 fl (81.0-99.0); MEAN CORPUSCULAR HEMOGLOBIN 30.3 pg (27.0-31.0); MEAN CORPUSCULAR HGB CONC 32.8 g/dL (33.0-37.0); RED CELL DISTRIBUTION WIDTH 21.4 % (11.5-14.5); WHITE BLOOD COUNT 4.7 K/uL (4.8-10.8)
[2017-02-10 05:53] LABS: BLOOD UREA NITROGEN 35 mg/dl (7-17); CALCIUM 9.4 mg/dL (8.4-10.2); CARBON DIOXIDE 33 mmol/L (22-30); CHLORIDE 103 mmol/L (98-107); GFR AFRICAN-AMERICAN > 60; GLUCOSE,RANDOM 205 mg/dL (65-105); POTASSIUM 4.2 MMOL/L (3.6-5.0); SODIUM 140 mmol/l (132-148)
[2017-02-10] MEDS: Insulin Regular 100 units/ml SC SCH ×4 (06:34→21:22)
[2017-02-10] MEDS: Albuterol-Ipratrop 3 mg / 0.5 (3 ml) UD INH SCH ×4 (07:53→19:15)
[2017-02-10] MEDS: Acetylcysteine 10% 4 ML IH SCH ×2 (07:53→19:15)
[2017-02-10] MEDS: Lactobacillus Acidophilus 500 MU Cap PO SCH ×2 (09:05→16:44)
[2017-02-10] MEDS: Multiple Vitamins Oral Solution PO SCH (09:06)
[2017-02-10] MEDS: Digoxin 125 mcg (0.125 mg) Tab PO SCH (09:07)
[2017-02-10 09:12] VITALS: PULSE 68
--- NOTE | 2017-02-10 11:35 | CP.PCM.PN ---
<Quinten Mary - Last Filed: 02/10/17 15:40> Subjective - Date & Time of Evaluation Date of Evaluation: 02/10/17 Time of Evaluation: 11:33 - Subjective Subjective: Patient seen and examined at bedside with Dr. Templeton. Patient is looking less responsive then previous admission. Opens eyes, but does not responds to questions, and does not make eye contact. Objective - Vital Signs/Intake and Output Vital Signs (last 24 hours): Temp Pulse Resp BP Pulse Ox 97.6 F 65 19 134/74 100 02/10/17 08:00 02/10/17 10:00 02/10/17 10:00 02/10/17 10:00 02/10/17 10:00 Intake and Output: 02/10/17 02/10/17 06:59 18:59 Intake Total 375 250 Output Total 150 Balance 225 250 - Medications Medications: Current Medications Acetylcysteine (Mucomyst 10% 4ml) 2 ml IH RBID [facility] Last Admin: 02/10/17 07:53 Dose: 2 ml Albuterol/Ipratropium (Duoneb 3 Mg/0.5 Mg (3 Ml) Ud) 3 ml INH RQID [facility] Last Admin: 02/10/17 11:08 Dose: 3 ml Amlodipine Besylate (Norvasc) 5 mg PO DAILY [facility] Last Admin: 02/10/17 09:06 Dose: 5 mg Digoxin (Lanoxin) 0.125 mg PO DAILY [facility] Last Admin: 02/10/17 09:07 Dose: 0.125 mg Famotidine (Pepcid) 20 mg PO BID [facility] Last Admin: 02/10/17 09:48 Dose: 20 mg Piperacillin Sod/Tazobactam Sod (Zosyn 3.375 Gm Iv Premix) 3.375 gm in 50 mls @ 50 mls/hr IVPB Q6 [facility] PRN Reason: Protocol Last Admin: 02/10/17 09:52 Dose: 50 mls/hr Iron Sucrose 100 mg/ Sodium (Chloride) 105 mls @ 105 mls/hr IVPB DAILY [facility] Last Admin: 02/10/17 10:42 Dose: 105 mls/hr Insulin Human Regular (Humulin R) 0 units SC ACHS [facility] PRN Reason: Protocol Last Admin: 02/10/17 06:34 Dose: 2 units Labetalol HCl (Trandate) 100 mg PO BID [facility] Last Admin: 02/10/17 09:08 Dose: 100 mg Lactobacillus Acidophilus (Bacid Acidophilus) 1 cap PO BID [facility] Last Admin: 02/10/17 09:05 Dose: 1 cap Methylprednisolone (Solu-Medrol) 20 mg IVP Q8 [facility] Last Admin: 02/10/17 09:07 Dose: 20 mg Multivitamins/Vitamin C (Multi-Delyn Liquid) 5 ml PO DAILY [facility] Last Admin: 02/10/17 09:06 Dose: 5 ml Rivaroxaban (Xarelto) 10 mg PO QD5 [facility] PRN Reason: Protocol Last Admin: 02/09/17 16:39 Dose: 10 mg - Labs Labs: 02/10/17 04:20 02/10/17 04:20 - Constitutional Appears: No Acute Distress, Chronically Ill - Head Exam Head Exam: NORMAL INSPECTION - Neck Exam Additional comments: trach in place - Respiratory Exam Respiratory Exam: Decreased Breath Sounds, Rales - Cardiovascular Exam Cardiovascular Exam: REGULAR RHYTHM, +S1, +S2 - GI/Abdominal Exam GI & Abdominal Exam: Soft. absent: Tenderness - Extremities Exam Extremities Exam: absent: Calf Tenderness - Neurological Exam Neurological Exam: Awake - Skin Skin Exam: Normal Color, Warm Assessment and Plan - Assessment and Plan (Free Text) Assessment: 1) Acute respiratory failure w/ hypercapnia -s/p tracheostomy on 01/27/2017 - Being Ventilated 2) Aspiration pneumonia VS HCAP - X ray: Opacity at left base. Small right pleural effusion - IV Piperacillin Sod/Tazobactam - Pulm consult appreciated 4) Type 2 DM - Newly diagnosed: 6.9 - on insulin sliding scale 5)Chronic Anemia - Hb:8.9 - 1 unit PRBC transfused today 6) Chronic Atrial fibrilation -xarelto 15 mg PO - Digoxin .125 mg - LAbetolol 100 mg BID - Norvasc 5 mg -cardiac monitoring - 7) Prophylaxis xaralto for DVT prophylaxis Pepcid for GI Px <Nura Templeton - Last Filed: 02/18/17 17:11> Objective - Vital Signs/Intake and Output Vital Signs (last 24 hours): Temp Pulse Resp BP Pulse Ox 97.3 F L 76 16 149/100 H 97 02/18/17 16:52 02/18/17 16:52 02/18/17 16:52 02/18/17 16:52 02/18/17 16:52 Intake and Output: 02/18/17 02/18/17 06:59 18:59 Intake Total 100 Balance 100 - Medications Medications: Current Medications Acetylcysteine (Mucomyst 10% 4ml) 2 ml IH RBID [facility] Last Admin: 02/18/17 07:45 Dose: 2 ml Albuterol/Ipratropium (Duoneb 3 Mg/0.5 Mg (3 Ml) Ud) 3 ml INH RQ6 [facility] Last Admin: 02/18/17 13:35 Dose: 3 ml Amlodipine Besylate (Norvasc) 5 mg PO DAILY [facility] Last Admin: 02/18/17 09:35 Dose: Not Given Dextrose (Dextrose 50% Inj) 0 ml IV STAT PRN; Protocol PRN Reason: Hypoglycemia Protocol Dextrose (Glutose 15) 0 gm PO ONCE PRN; Protocol PRN Reason: Hypoglycemia Protocol Famotidine (Pepcid) 20 mg PO BID [facility] Last Admin: 02/18/17 17:05 Dose: Not Given Glucagon (Glucagen Diagnostic Kit) 0 mg IM STAT PRN; Protocol PRN Reason: Hypoglycemia Protocol Ceftazidime 1 gm/ Dextrose 50 mls @ 50 mls/hr IV Q8 [facility] PRN Reason: Protocol Last Admin: 02/18/17 09:45 Dose: 50 mls/hr Dextrose/Sodium Chloride (Dextrose 5%/0.9% Ns 1000 Ml) 1,000 mls @ 70 mls/hr IV .[id number] [facility] Stop: 02/19/17 13:25 Last Admin: 02/18/17 13:00 Dose: 70 mls/hr Insulin Human Regular (Humulin R) 0 units SC ACHS [facility] PRN Reason: Protocol Last Admin: 02/18/17 17:05 Dose: Not Given Labetalol HCl (Trandate) 200 mg PO BID [facility] Last Admin: 02/18/17 17:05 Dose: Not Given Labetalol HCl (Trandate) 10 mg IVP Q8 [facility] Last Admin: 02/18/17 10:19 Dose: 10 mg Lactobacillus Acidophilus (Bacid Acidophilus) 1 cap PO BID [facility] Last Admin: 02/18/17 17:05 Dose: Not Given Linezolid (Zyvox) 600 mg PO Q12 [facility] PRN Reason: Protocol Last Admin: 02/18/17 09:35 Dose: Not Given Multivitamins/Vitamin C (Multi-Delyn Liquid) 5 ml PO DAILY [facility] Last Admin: 02/18/17 09:34 Dose: Not Given Rivaroxaban (Xarelto) 15 mg PO QD5 [facility] PRN Reason: Protocol Last Admin: 02/13/17 17:04 Dose: Not Given - Labs Labs: 02/17/17 04:15 02/17/17 04:15 PT 10.7 Seconds (9.8-13.1) 02/15/17 17:47 INR 1.0 (0.9-1.2) 02/15/17 17:47 Assessment and Plan (1) Acute respiratory failure with hypercapnia Status: Acute (2) Pneumonia Status: Acute (3) Dehydration Status: Acute (4) Respiratory distress Status: Acute (5) Atrial fibrillation Status: Chronic - Assessment and Plan (Free Text) Plan: I was present during evaluation and iscussed with Dr Mary re plans ofcare and tx.
--- NOTE | 2017-02-10 15:20 | CP.CCUPN ---
CCU Subjective - Physician Review Events Since Last Encounter (Free Text): 02/10/17 15:10 The patient was Seen and examined by me at the bedside during ICU round, Medical records reviewed and Management issues were discussed and formulated with the house staff. Events reviewed 71 Years old Female with Multiple medical conditions including HTN, Hypercholesterolemia, Anemia, Atrial Fibrillation, Cardia Arrhythmia, CHF, Dementia, Emphysema, recent Pneumonia and chronic respiratory failure S/P Trach/Peg Who was brought to the ED by paramedics from [facility], who were summoned due to possible respiratory arrest? On arrival to [facility], paramdeics report finding patient to be apneic with sinus bradycardia on monitor. As per report the patient was suctioned via tracheostomy tube at the [facility] with improvement in oxygen saturation, heart rate, and blood pressure. Currently she intubated via trach Acute ion Chronid respiratory failure with Hypoxemia secondary to Pneumonia, CHF /COPD and Sepsis Pt placed on CPAP trial with PS of 12, Fio2 decreased to 40% Comfortable, no distress. CPAP/Pressure support 12/40% PEEP-5, Tolerating PSV so far Off sedation, minimally responisve, does not follow commands. Adequate saturation, and tidal volume Minimal whitish Resp secretions Afebrile. Last 24H I&O 1110/500 AM Labs with worsening renal function 27/0.7--> 35/0.9 Restarted tube feedings with Glucerna 1.2 at 30ml/H and she tolerating Will add free water flushes CXR 02/09 showed improved lung aeration with persistent LLL opacity and small Right pleural effision CCU Objective - Vital Signs / Intake & Output Vital Signs (Last 4 hours): Vital Signs Temp Pulse Resp BP Pulse Ox 02/10/17 14:00 56 L 20 106/58 L 100 02/10/17 13:00 57 L 19 105/58 L 100 02/10/17 12:00 98.9 F 64 39 H 142/95 H 100 Intake and Output (Last 8hrs): Intake & Output 02/10/17 02/10/17 02/10/17 06:59 14:59 22:59 Intake Total 240 470 Output Total 150 Balance 90 470 Weight 99 lb Intake: Intake, Piggyback 150 Tube Feeding 240 220 Free Water Flush 100 Output: Urine 150 Urethral (Atkins) 150 - Physical Exam Physical Exam Limitations: Positive for: Clinical Condition Head: Positive for: Atraumatic, Normocephalic. Negative for: Tenderness, Contusion, Swelling, Ecchymosis, Abrasion, Laceration Pupils: Positive for: PERRL. Negative for: Sluggish, Non-Reactive, Pinpoint Extroacular Muscles: Positive for: EOMI. Negative for: Gaze Palsy, Entrapment Conjunctiva: Positive for: Normal. Negative for: Injected, Icteric Ears: Positive for: Normal, NORMAL TM. Negative for: Erythema Mouth: Positive for: Moist Mucous Membranes Pharnyx: Positive for: Normal. Negative for: ERYTHEMA Nose (Internal): Positive for: Normal Inspection Neck: Positive for: Normal Range of Motion, Trachea Midline. Negative for: Meningeal Signs, MIDLINE TENDERNESS, Paraspinal Tenderness, JVD, Lymphadenopathy , Bruit, Other Respiratory/Chest: Positive for: Good Air Exchange, Wheezes, Decreased Breath Sounds, Rhonchi, Tachypneic. Negative for: Clear to Auscultation, Respiratory Distress, Accessory Muscle Use, Rales, Retracting, Tender to Palpation Cardiovascular: Positive for: Irregular Rhythm, Peripheal Pulses Present. Negative for: Regular Rate and Rhythm, Murmurs, Tachycardic, Bradycardic Abdomen: Positive for: Normal Bowel Sounds, Feeding Tubes (PEG site clean/intact ). Negative for: Tenderness, Distention, Peritoneal Signs, Hernias Upper Extremity: Positive for: Normal Inspection, NORMAL PULSES, Capillary Refill < 2s. Negative for: Cyanosis, Edema Lower Extremity: Positive for: Edema, NORMAL PULSES, Capillary Refill < 2 s. Negative for: CALF TENDERNESS - Medications Active Medications: Active Medications Generic Name Dose Route Start Last Admin Trade Name Freq PRN Reason Stop Dose Admin Acetylcysteine 2 ml 02/07/17 20:00 02/10/17 07:53 Mucomyst 10% 4ml IH 2 ml RBID [facility] Administration Albuterol/Ipratropium 3 ml 02/07/17 20:00 02/10/17 11:08 Duoneb 3 Mg/0.5 Mg (3 Ml) Ud INH 3 ml RQID [facility] Administration Amlodipine Besylate 5 mg 02/08/17 09:00 02/10/17 09:06 Norvasc PO 5 mg DAILY [facility] Administration Digoxin 0.125 mg 02/08/17 09:00 02/10/17 09:07 Lanoxin PO 0.125 mg DAILY [facility] Administration Famotidine 20 mg 02/07/17 17:30 02/10/17 09:48 Pepcid PO 20 mg BID [facility] Administration Piperacillin Sod/Tazobactam Sod 3.375 gm in 50 mls @ 50 mls/hr 02/08/17 16:00 02/10/17 09:52 Zosyn 3.375 Gm Iv Premix IVPB 50 mls/hr Q6 [facility] Administration Protocol Iron Sucrose 100 mg/ Sodium 105 mls @ 105 mls/hr 02/09/17 09:00 02/10/17 10: 42 Chloride IVPB 105 mls/hr DAILY [facility] Administration Insulin Human Regular 0 units 02/08/17 16:30 02/10/17 11:43 Humulin R SC 1 units ACHS [facility] Administration Protocol Labetalol HCl 100 mg 02/07/17 17:45 02/10/17 09:08 Trandate PO 100 mg BID [facility] Administration Lactobacillus Acidophilus 1 cap 02/08/17 17:00 02/10/17 09:05 Bacid Acidophilus PO 1 cap BID [facility] Administration Methylprednisolone 20 mg 02/08/17 12:30 02/10/17 09:07 Solu-Medrol IVP 20 mg Q8 [facility] Administration Multivitamins/Vitamin C 5 ml 02/09/17 09:00 02/10/17 09:06 Multi-Delyn Liquid PO 5 ml DAILY [facility] Administration Rivaroxaban 10 mg 02/08/17 17:00 02/09/17 16:39 Xarelto PO 10 mg QD5 [facility] Administration Protocol - Patient Studies Lab Studies: Microbiology Studies 02/09/17 Unknown Gram Stain - Final Drainage Wound Culture - Preliminary NO GROWTH AFTER 24 HOURS 02/09/17 09:08 Gram Stain - Final Trachasp Sputum Culture - Preliminary Gram Negative Giovanni 02/07/17 17:50 Urine Culture - Final Urine,Atkins Vancomycin Resistant E.faecium 02/08/17 14:39 MRSA Culture (Admit) - Final Naris MRSA NOT DETECTED 02/07/17 16:15 Blood Culture - Preliminary Blood-Venous NO GROWTH AFTER 48 HOURS 02/07/17 16:20 Blood Culture - Preliminary Blood-Venous NO GROWTH AFTER 48 HOURS Lab Studies 02/10/17 02/10/17 02/10/17 Range/Units 11:28 05:33 04:20 WBC (4.8-10.8) K/uL RBC (3.80-5.20) Mil/uL Hgb (12.0-16.0) g/dL Hct (34.0-47.0) % MCV (81.0-99.0) fl MCH (27.0-31.0) pg MCHC (33.0-37.0) g/dL RDW (11.5-14.5) % Plt Count (130-400) K/uL Sodium 140 (132-148) mmol/l Potassium 4.2 (3.6-5.0) MMOL/L Chloride 103 (98-107) mmol/L Carbon Dioxide 33 H (22-30) mmol/L Anion Gap 8 L (10-20) BUN 35 H (7-17) mg/dl Creatinine 0.9 (0.7-1.2) mg/dL Est GFR ( Amer) > 60 Est GFR (Non-Af Amer) > 60 POC Glucose (mg/dL) 185 H 216 H (65-110) mg/dL Random Glucose 205 H (65-105) mg/dL Calcium 9.4 (8.4-10.2) mg/dL 02/10/17 02/09/17 02/09/17 Range/Units 04:20 21:42 16:05 WBC 4.7 L (4.8-10.8) K/uL RBC 2.93 L (3.80-5.20) Mil/uL Hgb 8.9 L (12.0-16.0) g/dL Hct 27.1 L (34.0-47.0) % MCV 92.5 (81.0-99.0) fl MCH 30.3 (27.0-31.0) pg MCHC 32.8 L (33.0-37.0) g/dL RDW 21.4 H (11.5-14.5) % Plt Count 167 (130-400) K/uL Sodium (132-148) mmol/l Potassium (3.6-5.0) MMOL/L Chloride (98-107) mmol/L Carbon Dioxide (22-30) mmol/L Anion Gap (10-20) BUN (7-17) mg/dl Creatinine (0.7-1.2) mg/dL Est GFR ( Amer) Est GFR (Non-Af Amer) POC Glucose (mg/dL) 260 H 192 H (65-110) mg/dL Random Glucose (65-105) mg/dL Calcium (8.4-10.2) mg/dL Laboratory Results - last 24 hr 02/09/17 02/09/17 02/10/17 16:05 21:42 04:20 WBC 4.7 L RBC 2.93 L Hgb 8.9 L Hct 27.1 L MCV 92.5 MCH 30.3 MCHC 32.8 L RDW 21.4 H Plt Count 167 Sodium Potassium Chloride Carbon Dioxide Anion Gap BUN Creatinine Est GFR ( Amer) Est GFR (Non-Af Amer) POC Glucose (mg/dL) 192 H 260 H Random Glucose Calcium 02/10/17 02/10/17 02/10/17 04:20 05:33 11:28 WBC RBC Hgb Hct MCV MCH MCHC RDW Plt Count Sodium 140 Potassium 4.2 Chloride 103 Carbon Dioxide 33 H Anion Gap 8 L BUN 35 H Creatinine 0.9 Est GFR ( Amer) > 60 Est GFR (Non-Af Amer) > 60 POC Glucose (mg/dL) 216 H 185 H Random Glucose 205 H Calcium 9.4 Fingerstick Blood Sugar Results: 189 Review of Systems - Review of Systems Systems not reviewed;Unavailable: Intubated Critical Care Progress Note - Ventilator Checklist Head of Bed 30 Degrees: Yes Daily Sedation Vacation: Yes Daily Assessment of Readiness to Wean: Yes Daily Spontaneous Breathing Trial: Yes PUD Prophalyxis: Yes DVT Prophylaxis: Yes Oral Care with Chlorhexidine Gluconate {CHG}: Yes Assessment/Plan (1) Acute and chronic respiratory failure with hypoxia Current Visit: Yes Status: Acute Comment: Vent weaning in progress Daily CAT/SBT IV antibiotics with IV Piperacillin Sod/Tazobactam IV Methylprednisolone to 20 mg IVPB Q 8H Continue nebulizer treatment Continue diuretics as needed Aggressive pulmonary toilet Maintain aspiration precautions GI/DVT PPX (2) Acute diastolic (congestive) heart failure Current Visit: No Status: Resolved Comment: Continue Xarelto, Digoxin PRN Lasix (3) Anemia Current Visit: No Status: Chronic Comment: No Evidanc of active bleeding, S/p Packed RBC transfused last admission (4) Atrial fibrillation Current Visit: No Status: Chronic Comment: HR controlled on Labatalol and Digoxin Continue Xarelto 15 mg PO DAILY (5) COPD (chronic obstructive pulmonary disease) Current Visit: No Status: Chronic Comment: IV Soulmedrol Continue BD nebs q 6h prn (6) HCAP (healthcare-associated pneumonia) Current Visit: No Status: Acute Comment: IV Piperacillin Sod/Tazobactam - Assessment and Plan (Free Text) Assessment: #. Stress Ulcer prophylaxis with Pepcid 20 mg PO BID. #. DVT prophylaxis with SCD, Xarelto #. Code Status: Full code Total critical care time 53 minutes - Date & Time Date: 02/10/17 Time: 15:20
[2017-02-11] MEDS: Piperacill/Tazo 3.375gm in Dex 3.375 GM/50 ML BAG IVPB SCH ×2 (04:10→09:29)
[2017-02-11 05:22] LABS: CALCIUM 9.5 mg/dL (8.4-10.2); POTASSIUM 4.1 MMOL/L (3.6-5.0)
[2017-02-11 05:28] LABS: HEMATOCRIT 25.9 % (34.0-47.0); MEAN CELL VOLUME 93.2 fl (81.0-99.0); MEAN CORPUSCULAR HEMOGLOBIN 30.2 pg (27.0-31.0); MEAN CORPUSCULAR HGB CONC 32.4 g/dL (33.0-37.0); RED CELL DISTRIBUTION WIDTH 21.8 % (11.5-14.5)
[2017-02-11] MEDS: Insulin Regular 100 units/ml SC SCH ×4 (06:29→22:00)
[2017-02-11] MEDS: Albuterol-Ipratrop 3 mg / 0.5 (3 ml) UD INH SCH ×4 (08:03→19:28)
[2017-02-11] MEDS: Acetylcysteine 10% 4 ML IH SCH ×2 (08:03→19:28)
[2017-02-11] MEDS: Lactobacillus Acidophilus 500 MU Cap PO SCH ×2 (08:48→16:27)
[2017-02-11] MEDS: Digoxin 125 mcg (0.125 mg) Tab PO SCH (08:49)
[2017-02-11] MEDS: MethylPREDNISolone 40 mg Vial IVP SCH ×2 (08:50)
[2017-02-11] MEDS: Multiple Vitamins Oral Solution PO SCH (08:51)
--- NOTE | 2017-02-11 10:03 | CP.CCUPN ---
CCU Subjective - Physician Review Subjective (Free Text): Awake and responsive this AM, has been on CPAP almost 48H now, no overall distress. No fever spikes. Other vitals and I/O's reviewed. She remains in NSR with PACs, has been reported to have periods of bradycardia with HR 50s. No hypotension noted. ROS: Essentially nods head in "no" fashion to questions. No other pertinent negs or positives on 10+ system review. PMSFH: Recent PEG placement at and discharged from [facility] for severe malnutrition; bed bound, CHF, A Fib, Anemia, Atrial Fibrillation, severe Dementia, Emphysema, HTN, Hypercholesterolemia. All Nursing and physician documentation reviewed to date; no new pertinent info noted relevant to current medical problems. CXR: 02/09 study- persistent Bi- basilar interstitial changes seen, left hemidiaphragm not visisble ( my interp). MAJOR PROBLEMS: 1. Acute Hypercarbic Resp Failure, 2 Mucous Plugging at the NH. 2. Bilateral Pneumonia, suspect aspiration event 3. Azotemia with Dehydration and Hyperkalemia 4. Chronic Disease Anemia, r/o acute GI Blood loss. 5. Paroxsymal A Fib 6. Transaminitis / Abnormal LFTs-resolved PLAN: 1. Trach collar trial today. 2. Continue pulm toilet measures / frequent suctioning as tolerated. 3. ?? need to continue on Steroids. Consider weaning off or discontinue today. 4. 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 5. Iron sucrose therapt noted. Check repeat Fe stores. 6. Watch for bradycardic effects from Digoxin and Trandate. Check Digoxin level, but may not need Digoxin for rate control if its being accomplished by Trandate. 7. Xarelto dosing adjustment may be needed: being used for Stroke prevention, and dose adjusted for CKD: 15 mg QD. CCU Objective - Vital Signs / Intake & Output Vital Signs (Last 4 hours): Vital Signs Temp Pulse Resp BP Pulse Ox 02/11/17 09:28 84 145/104 H 02/11/17 08:49 68 134/67 02/11/17 08:00 98.6 F 67 19 124/100 H 100 Intake and Output (Last 8hrs): Intake & Output 02/10/17 02/11/17 02/11/17 22:59 06:59 14:59 Intake Total 440 390 30 Output Total 150 200 Balance 290 190 30 Weight 98 lb Intake: Intake, Piggyback 50 Tube Feeding 240 240 30 Free Water Flush 150 150 Output: Urine 150 200 Urethral (Atkins) 150 200 - Physical Exam Head: Positive for: Normocephalic Pupils: Positive for: PERRL Extroacular Muscles: Positive for: EOMI. Negative for: Gaze Palsy Conjunctiva: Positive for: Normal. Negative for: Icteric Mouth: Positive for: Moist Mucous Membranes Neck: Positive for: Trachea Midline. Negative for: JVD Respiratory/Chest: Positive for: Clear to Auscultation, Decreased Breath Sounds. Negative for: Accessory Muscle Use, Wheezes Cardiovascular: Positive for: Irregular Rhythm. Negative for: Murmurs, Rub Abdomen: Positive for: Normal Bowel Sounds, Hernias, Feeding Tubes (PEG site clean/intact). Negative for: Tenderness, Distention, Mass/Organomegaly Lower Extremity: Positive for: Edema, NORMAL PULSES. Negative for: CALF TENDERNESS Neurological: Positive for: GCS=15, Motor Func Grossly Intact Skin: Positive for: Warm. Negative for: Rashes Psychiatric: Positive for: Alert, Normal Affect - Medications Active Medications: Active Medications Generic Name Dose Route Start Last Admin Trade Name Freq PRN Reason Stop Dose Admin Acetylcysteine 2 ml 02/07/17 20:00 02/11/17 08:03 Mucomyst 10% 4ml IH 2 ml RBID LINA Administration Albuterol/Ipratropium 3 ml 02/07/17 20:00 02/11/17 08:03 Duoneb 3 Mg/0.5 Mg (3 Ml) Ud INH 3 ml RQID LINA Administration Amlodipine Besylate 5 mg 02/08/17 09:00 02/11/17 08:49 Norvasc PO 5 mg DAILY [facility] Administration Digoxin 0.125 mg 02/08/17 09:00 02/11/17 08:49 Lanoxin PO 0.125 mg DAILY [facility] Administration Famotidine 20 mg 02/07/17 17:30 02/11/17 08:48 Pepcid PO 20 mg BID [facility] Administration Piperacillin Sod/Tazobactam Sod 3.375 gm in 50 mls @ 50 mls/hr 02/08/17 16:00 02/11/17 09:29 Zosyn 3.375 Gm Iv Premix IVPB 50 mls/hr Q6 [facility] Administration Protocol Iron Sucrose 100 mg/ Sodium 105 mls @ 105 mls/hr 02/09/17 09:00 02/10/17 10: 42 Chloride IVPB 105 mls/hr DAILY [facility] Administration Insulin Human Regular 0 units 02/08/17 16:30 02/11/17 06:29 Humulin R SC 2 units ACHS LINA Administration Protocol Labetalol HCl 100 mg 02/07/17 17:45 02/11/17 09:28 Trandate PO 100 mg BID LINA Administration Lactobacillus Acidophilus 1 cap 02/08/17 17:00 02/11/17 08:48 Bacid Acidophilus PO 1 cap BID LINA Administration Methylprednisolone 20 mg 02/08/17 12:30 02/11/17 08:50 Solu-Medrol IVP 20 mg Q8 LINA Administration Multivitamins/Vitamin C 5 ml 02/09/17 09:00 02/11/17 08:51 Multi-Delyn Liquid PO 5 ml DAILY LINA Administration Rivaroxaban 10 mg 02/08/17 17:00 02/10/17 16:44 Xarelto PO 10 mg QD5 LINA Administration Protocol - Patient Studies Lab Studies: Microbiology Studies 02/09/17 09:08 Gram Stain - Final Trachasp Sputum Culture - Preliminary Stenotrophomonas Maltophilia 02/07/17 16:15 Blood Culture - Preliminary Blood-Venous NO GROWTH AFTER 3 DAYS 02/07/17 16:20 Blood Culture - Preliminary Blood-Venous NO GROWTH AFTER 3 DAYS 02/09/17 Unknown Gram Stain - Final Drainage Wound Culture - Preliminary NO GROWTH AFTER 24 HOURS 02/07/17 17:50 Urine Culture - Final Urine,Atkins Vancomycin Resistant E.faecium Lab Studies 02/11/17 02/11/17 02/11/17 Range/Units 05:42 04:20 04:20 WBC 5.0 (4.8-10.8) K/uL RBC 2.78 L (3.80-5.20) Mil/uL Hgb 8.4 L (12.0-16.0) g/dL Hct 25.9 L (34.0-47.0) % MCV 93.2 (81.0-99.0) fl MCH 30.2 (27.0-31.0) pg MCHC 32.4 L (33.0-37.0) g/dL RDW 21.8 H (11.5-14.5) % Plt Count 165 (130-400) K/uL Sodium 139 (132-148) mmol/l Potassium 4.1 (3.6-5.0) MMOL/L Chloride 99 (98-107) mmol/L Carbon Dioxide 35 H (22-30) mmol/L Anion Gap 9 L (10-20) BUN 41 H (7-17) mg/dl Creatinine 1.1 (0.7-1.2) mg/dL Est GFR ( Amer) 59 Est GFR (Non-Af Amer) 49 POC Glucose (mg/dL) 208 H (65-110) mg/dL Random Glucose 184 H (65-105) mg/dL Calcium 9.5 (8.4-10.2) mg/dL 02/10/17 02/10/17 02/10/17 Range/Units 21:15 16:36 11:28 WBC (4.8-10.8) K/uL RBC (3.80-5.20) Mil/uL Hgb (12.0-16.0) g/dL Hct (34.0-47.0) % MCV (81.0-99.0) fl MCH (27.0-31.0) pg MCHC (33.0-37.0) g/dL RDW (11.5-14.5) % Plt Count (130-400) K/uL Sodium (132-148) mmol/l Potassium (3.6-5.0) MMOL/L Chloride (98-107) mmol/L Carbon Dioxide (22-30) mmol/L Anion Gap (10-20) BUN (7-17) mg/dl Creatinine (0.7-1.2) mg/dL Est GFR ( Amer) Est GFR (Non-Af Amer) POC Glucose (mg/dL) 178 H 168 H 185 H (65-110) mg/dL Random Glucose (65-105) mg/dL Calcium (8.4-10.2) mg/dL Laboratory Results - last 24 hr 02/10/17 02/10/17 02/10/17 11:28 16:36 21:15 WBC RBC Hgb Hct MCV MCH MCHC RDW Plt Count Sodium Potassium Chloride Carbon Dioxide Anion Gap BUN Creatinine Est GFR ( Amer) Est GFR (Non-Af Amer) POC Glucose (mg/dL) 185 H 168 H 178 H Random Glucose Calcium 02/11/17 02/11/17 02/11/17 04:20 04:20 05:42 WBC 5.0 RBC 2.78 L Hgb 8.4 L Hct 25.9 L MCV 93.2 MCH 30.2 MCHC 32.4 L RDW 21.8 H Plt Count 165 Sodium 139 Potassium 4.1 Chloride 99 Carbon Dioxide 35 H Anion Gap 9 L BUN 41 H Creatinine 1.1 Est GFR ( Amer) 59 Est GFR (Non-Af Amer) 49 POC Glucose (mg/dL) 208 H Random Glucose 184 H Calcium 9.5 Radiology Interpretations (Free Text): CXR: 02/09 study- persistent Bi- basilar interstitial changes seen, left hemidiaphragm not visisble ( my interp). Fingerstick Blood Sugar Results: 208 Critical Care Progress Note - Vent Settings MODE:: CPAP PEEP:: 0 PRESSURE SUPPORT:: 12 - Extremities/Vascular Does the Patient have a Central Venous Catheter?: No Does the Patient need a Central Venous Catheter?: No Does the Patient have a Atkins Catheter?: Yes Does the Patient need a Atkins Catheter?: Yes Catheter Insertion Criteria: Need for accurate measurement of output in critically ill patient - Prophylaxis GI Prophylaxis GI: Pepsid - Prophylaxis DVT Prophylaxis DVT: Not Indicated
--- NOTE | 2017-02-11 10:22 | CP.PCM.PN ---
Subjective - Date & Time of Evaluation Date of Evaluation: 02/11/17 Time of Evaluation: 10:22 - Subjective Subjective: still on the vent responds to painful stimuli vss lungs-fair aeration with ra;es cxr-pending will attempt to place pt on trach collar Objective - Vital Signs/Intake and Output Vital Signs (last 24 hours): Temp Pulse Resp BP Pulse Ox 98.6 F 60 21 140/98 H 100 02/11/17 08:00 02/11/17 10:00 02/11/17 10:00 02/11/17 10:00 02/11/17 10:00 Intake and Output: 02/11/17 02/11/17 06:59 18:59 Intake Total 510 240 Output Total 200 Balance 310 240 - Medications Medications: Current Medications Acetylcysteine (Mucomyst 10% 4ml) 2 ml IH RBID [facility] Last Admin: 02/11/17 08:03 Dose: 2 ml Albuterol/Ipratropium (Duoneb 3 Mg/0.5 Mg (3 Ml) Ud) 3 ml INH RQID [facility] Last Admin: 02/11/17 08:03 Dose: 3 ml Amlodipine Besylate (Norvasc) 5 mg PO DAILY [facility] Last Admin: 02/11/17 08:49 Dose: 5 mg Famotidine (Pepcid) 20 mg PO BID [facility] Last Admin: 02/11/17 08:48 Dose: 20 mg Piperacillin Sod/Tazobactam Sod (Zosyn 3.375 Gm Iv Premix) 3.375 gm in 50 mls @ 50 mls/hr IVPB Q6 [facility] PRN Reason: Protocol Last Admin: 02/11/17 09:29 Dose: 50 mls/hr Iron Sucrose 100 mg/ Sodium (Chloride) 105 mls @ 105 mls/hr IVPB DAILY [facility] Last Admin: 02/10/17 10:42 Dose: 105 mls/hr Insulin Human Regular (Humulin R) 0 units SC ACHS [facility] PRN Reason: Protocol Last Admin: 02/11/17 06:29 Dose: 2 units Labetalol HCl (Trandate) 100 mg PO BID [facility] Last Admin: 02/11/17 09:28 Dose: 100 mg Lactobacillus Acidophilus (Bacid Acidophilus) 1 cap PO BID [facility] Last Admin: 02/11/17 08:48 Dose: 1 cap Multivitamins/Vitamin C (Multi-Delyn Liquid) 5 ml PO DAILY [facility] Last Admin: 02/11/17 08:51 Dose: 5 ml Rivaroxaban (Xarelto) 15 mg PO QD5 [facility] PRN Reason: Protocol - Labs Labs: 02/11/17 04:20 02/11/17 04:20
--- NOTE | 2017-02-11 11:29 | RAD ---
PROCEDURE: CHEST RADIOGRAPH, 1 VIEW HISTORY: pneumonia COMPARISON: 02/09/2017 FINDINGS: There is stable position of the tracheostomy tube. The nasogastric tube terminates in the stomach. LUNGS: There is persistent airspace disease in the right lower lobe and persistent left retrocardiac opacity. PLEURA: No pneumothorax. Suspect bilateral pleural effusions. CARDIOVASCULAR: Again seen is cardiomegaly. OSSEOUS STRUCTURES: No significant abnormalities. VISUALIZED UPPER ABDOMEN: Normal. OTHER FINDINGS: None. IMPRESSION: Cardiomegaly and right lower lobe pneumonia/ pulmonary edema without interval change. Persistent left lower lobe atelectasis/pneumonia. Suspect bilateral pleural effusions.
--- NOTE | 2017-02-11 13:47 | CP.PCM.PN ---
Subjective - Date & Time of Evaluation Date of Evaluation: 02/11/17 Time of Evaluation: 10:30 - Subjective Subjective: Patient seen and examined with Dr. Templeton. Patient not reponding to questions, but appears comfortable. Breathing is unlabored. Tracheostomy in place. NG tube feeds running at 30cc/hr. Off loading boots in place Objective - Vital Signs/Intake and Output Vital Signs (last 24 hours): Temp Pulse Resp BP Pulse Ox 96.4 F L 63 12 133/88 100 02/11/17 12:00 02/11/17 12:00 02/11/17 12:00 02/11/17 12:00 02/11/17 12:00 Intake and Output: 02/11/17 02/11/17 06:59 18:59 Intake Total 510 240 Output Total 200 Balance 310 240 - Medications Medications: Current Medications Acetylcysteine (Mucomyst 10% 4ml) 2 ml IH RBID [facility] Last Admin: 02/11/17 08:03 Dose: 2 ml Albuterol/Ipratropium (Duoneb 3 Mg/0.5 Mg (3 Ml) Ud) 3 ml INH RQID [facility] Last Admin: 02/11/17 11:08 Dose: 3 ml Amlodipine Besylate (Norvasc) 5 mg PO DAILY [facility] Last Admin: 02/11/17 08:49 Dose: 5 mg Famotidine (Pepcid) 20 mg PO BID [facility] Last Admin: 02/11/17 08:48 Dose: 20 mg Iron Sucrose 100 mg/ Sodium (Chloride) 105 mls @ 105 mls/hr IVPB DAILY [facility] Last Admin: 02/11/17 11:41 Dose: 105 mls/hr Ceftazidime 1 gm/ Dextrose 50 mls @ 50 mls/hr IV Q8 [facility] PRN Reason: Protocol Insulin Human Regular (Humulin R) 0 units SC ACHS [facility] PRN Reason: Protocol Last Admin: 02/11/17 11:12 Dose: 1 units Labetalol HCl (Trandate) 100 mg PO BID [facility] Last Admin: 02/11/17 09:28 Dose: 100 mg Lactobacillus Acidophilus (Bacid Acidophilus) 1 cap PO BID [facility] Last Admin: 02/11/17 08:48 Dose: 1 cap Multivitamins/Vitamin C (Multi-Delyn Liquid) 5 ml PO DAILY [facility] Last Admin: 02/11/17 08:51 Dose: 5 ml Rivaroxaban (Xarelto) 15 mg PO QD5 [facility] PRN Reason: Protocol - Labs Labs: 02/11/17 04:20 02/11/17 04:20 - Constitutional Appears: Chronically Ill - Head Exam Head Exam: ATRAUMATIC, NORMAL INSPECTION - Respiratory Exam Respiratory Exam: Clear to Ausculation Bilateral Additional comments: good air entry bilaterally - Cardiovascular Exam Cardiovascular Exam: Irregular Rhythm, +S1, +S2 - GI/Abdominal Exam GI & Abdominal Exam: Soft, Normal Bowel Sounds. absent: Tenderness - Extremities Exam Extremities Exam: absent: Pedal Edema - Neurological Exam Additional comments: opens eye to verbal stimuli, no verbal response - Skin Skin Exam: Dry, Intact, Normal Color, Warm Assessment and Plan - Assessment and Plan (Free Text) Assessment: 71 year old female with acute respiratory failure likely 2' to aspiration PNA vs hospital acquired. Patient is hemodynamically stable. Pending long-term acute care placement. Trach culture:stenotrophomonas maltopilia Urine culture: vancomycin resistant enterfacieum: ID consult # Acute respiratory failure w/ hypercapnia -s/p tracheostomy on 01/27/2017 # Aspiration pneumonia VS HCAP - 02/11/17: CXR: Cardiomegaly and right lower lobe pneumonia / pulmonary edema without interval change. Persistent left lower lobe atelectasis/pneumonia. Suspect bilateral pleural effusions. - 02/11: Start: Ceftazidime 1gm q8 - D/C: IV Piperacillin Sod/Tazobactam - Pulm consult appreciated #UTI -+urine culture: VRE -sensitive only to tigecycline/linezolid -ID consult appreciated, Dr. Mosqueda # Type 2 DM - Newly diagnosed: 6.9 - on insulin sliding scale # Chronic Anemia - Hb:8.4 -s/p transfusion -monitor cbc # Chronic Atrial fibrilation - xarelto 15 mg PO - Digoxin .125 mg - Labetolol 100 mg BID - Norvasc 5 mg - cardiac monitoring - # Prophylaxis xarelto for DVT prophylaxis Pepcid for GI prophylaxis
--- NOTE | 2017-02-11 15:57 | CP.PCM.PN ---
Subjective - Date & Time of Evaluation Date of Evaluation: 02/11/17 Time of Evaluation: 15:54 - Subjective Subjective: I D NOTE PATIENT C VRE IN URINE DISCUSSED c RESIDENT RX c ZYVOX 600MG VIA NG TUBE BID Objective - Vital Signs/Intake and Output Vital Signs (last 24 hours): Temp Pulse Resp BP Pulse Ox 96.4 F L 58 L 20 121/62 100 02/11/17 12:00 02/11/17 14:00 02/11/17 14:00 02/11/17 14:00 02/11/17 14:00 Intake and Output: 02/11/17 02/11/17 06:59 18:59 Intake Total 510 660 Output Total 200 Balance 310 660 - Medications Medications: Current Medications Acetylcysteine (Mucomyst 10% 4ml) 2 ml IH RBID [facility] Last Admin: 02/11/17 08:03 Dose: 2 ml Albuterol/Ipratropium (Duoneb 3 Mg/0.5 Mg (3 Ml) Ud) 3 ml INH RQID [facility] Last Admin: 02/11/17 15:07 Dose: 3 ml Amlodipine Besylate (Norvasc) 5 mg PO DAILY [facility] Last Admin: 02/11/17 08:49 Dose: 5 mg Famotidine (Pepcid) 20 mg PO BID [facility] Last Admin: 02/11/17 08:48 Dose: 20 mg Iron Sucrose 100 mg/ Sodium (Chloride) 105 mls @ 105 mls/hr IVPB DAILY [facility] Last Admin: 02/11/17 11:41 Dose: 105 mls/hr Ceftazidime 1 gm/ Dextrose 50 mls @ 50 mls/hr IV Q8 [facility] PRN Reason: Protocol Last Admin: 02/11/17 15:50 Dose: 50 mls/hr Insulin Human Regular (Humulin R) 0 units SC ACHS [facility] PRN Reason: Protocol Last Admin: 02/11/17 11:12 Dose: 1 units Labetalol HCl (Trandate) 100 mg PO BID [facility] Last Admin: 02/11/17 09:28 Dose: 100 mg Lactobacillus Acidophilus (Bacid Acidophilus) 1 cap PO BID [facility] Last Admin: 02/11/17 08:48 Dose: 1 cap Linezolid (Zyvox) 600 mg PO Q12 [facility] PRN Reason: Protocol Multivitamins/Vitamin C (Multi-Delyn Liquid) 5 ml PO DAILY [facility] Last Admin: 02/11/17 08:51 Dose: 5 ml Rivaroxaban (Xarelto) 15 mg PO QD5 [facility] PRN Reason: Protocol - Labs Labs: 02/11/17 04:20 02/11/17 04:20
[2017-02-12 05:18] LABS: IRON 161 ug/dL (37-170)
[2017-02-12 05:19] LABS: HEMATOCRIT 28.5 % (34.0-47.0); MEAN CELL VOLUME 93.2 fl (81.0-99.0); MEAN CORPUSCULAR HEMOGLOBIN 30.3 pg (27.0-31.0); MEAN CORPUSCULAR HGB CONC 32.5 g/dL (33.0-37.0)
[2017-02-12 05:22] LABS: ALB/GLOB RATIO 0.9 (1.0-2.1); BILIRUBIN,TOTAL 0.3 mg/dl (0.2-1.3); CALCIUM 9.4 mg/dL (8.4-10.2); POTASSIUM 4.2 MMOL/L (3.6-5.0)
[2017-02-12] MEDS: Insulin Regular 100 units/ml SC SCH ×4 (07:06→22:00)
[2017-02-12] MEDS: Albuterol-Ipratrop 3 mg / 0.5 (3 ml) UD INH SCH ×4 (07:41→19:18)
[2017-02-12] MEDS: Acetylcysteine 10% 4 ML IH SCH ×2 (07:41→19:18)
[2017-02-12 08:11] LABS: ABG ALLEN TEST YES; ARTERIAL BLOOD GAS HCO3 32.7 mmol/L (21-28); ARTERIAL BLOOD GAS O2 CAPACITY 12.6 mL/dL (16-24); ARTERIAL BLOOD GAS O2 CONTENT 12.5 ML/dL (15-23); ARTERIAL BLOOD GAS PH 7.38 (7.35-7.45); ARTERIAL BLOOD GAS PO2 73 mm/Hg (80-100); ARTERIAL BLOOD HGB O2 SAT 95.7 % (95.0-98.0); CARBOXYHEMOGLOBIN 2.3 % (0.5-1.5); HHB 0.7 % (0.0-5.0); METHEMOGLOBIN 1.3 % (0.0-3.0)
[2017-02-12] MEDS: Multiple Vitamins Oral Solution PO SCH (09:28)
[2017-02-12] MEDS: Lactobacillus Acidophilus 500 MU Cap PO SCH ×2 (09:38→17:22)
--- NOTE | 2017-02-12 10:16 | CP.CCUPN ---
CCU Subjective - Physician Review Subjective (Free Text): Opens eyes spontaneously, but not following commands, tolerated Trach collar, no distress. Other vitals and I/O's reviewed. No hypotension noted. ROS: unobtainable; no other pertinent negs or positives on 10+ system review. PMSFH: Recent PEG placement at and discharged from [facility] for severe malnutrition; bed bound, CHF, A Fib, Anemia, Atrial Fibrillation, severe Dementia, Emphysema, HTN, Hypercholesterolemia. All Nursing and physician documentation reviewed to date; no new pertinent info noted relevant to current medical problems. CXR: no overall chnage from persistent Bi- basilar interstitial changes seen, left hemidiaphragm not visisble ( my interp). MAJOR PROBLEMS: 1. Acute Hypercarbic Resp Failure, 2 Mucous Plugging at the GA. 2. Bilateral Pneumonia, suspect aspiration event 3. Azotemia with Dehydration and Hyperkalemia 4. Chronic Disease Anemia, r/o acute GI Blood loss. 5. Paroxsymal A Fib 6. Transaminitis / Abnormal LFTs-resolved PLAN: 1. Trach collar as tolerated. Continue pulm toilet measures / frequent suctioning as tolerated. 3. Stopped Steroids. 4. 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 5. Stopped Iron sucrose therapy noted, repeat Fe stores all adequate. 6. Watch for bradycardic effects from Digoxin and Trandate. Stopped Digoxin for rate control as its being accomplished by Trandate. 7. Holding Xarelto now pending CT Brain to evaluate for current AMS. ABGs still reflect hypercarbia but not to the extent to explain current AMS. 8. Will need GI eval to eventually replace PEG that was pulled by patient in [place]. CCU Objective - Vital Signs / Intake & Output Vital Signs (Last 4 hours): Vital Signs Temp Pulse Resp BP Pulse Ox 02/12/17 09:30 71 159/77 H 02/12/17 09:29 71 159/77 H 02/12/17 09:27 71 159/77 H 02/12/17 08:00 98.4 F 81 16 135/75 100 Intake and Output (Last 8hrs): Intake & Output 02/11/17 02/12/17 02/12/17 22:59 06:59 14:59 Intake Total 590 440 60 Output Total 250 300 Balance 340 140 60 Weight 98 lb Intake: Intake, Piggyback 100 50 Tube Feeding 240 240 60 Free Water Flush 250 150 Output: Urine 250 300 Urethral (Atkins) 250 300 - Physical Exam Head: Positive for: Normocephalic Pupils: Positive for: PERRL Extroacular Muscles: Positive for: EOMI. Negative for: Gaze Palsy Conjunctiva: Positive for: Normal. Negative for: Icteric Ears: Positive for: Normal, NORMAL TM. Negative for: Erythema Mouth: Positive for: Moist Mucous Membranes Pharnyx: Positive for: Normal. Negative for: ERYTHEMA Nose (Internal): Positive for: Normal Inspection Neck: Positive for: Trachea Midline. Negative for: JVD Respiratory/Chest: Positive for: Clear to Auscultation, Decreased Breath Sounds. Negative for: Accessory Muscle Use, Wheezes Cardiovascular: Positive for: Irregular Rhythm. Negative for: Murmurs, Rub Abdomen: Positive for: Normal Bowel Sounds, Hernias, Feeding Tubes (PEG site clean/intact). Negative for: Tenderness, Distention, Mass/Organomegaly Upper Extremity: Positive for: Normal Inspection, NORMAL PULSES, Capillary Refill < 2s. Negative for: Cyanosis, Edema Lower Extremity: Positive for: Edema, NORMAL PULSES. Negative for: CALF TENDERNESS Neurological: Positive for: GCS=15, Motor Func Grossly Intact Skin: Positive for: Warm. Negative for: Rashes Psychiatric: Positive for: Alert, Normal Affect - Medications Active Medications: Active Medications Generic Name Dose Route Start Last Admin Trade Name Freq PRN Reason Stop Dose Admin Acetylcysteine 2 ml 02/07/17 20:00 02/12/17 07:41 Mucomyst 10% 4ml IH 2 ml RBID [facility] Administration Albuterol/Ipratropium 3 ml 02/07/17 20:00 02/12/17 07:41 Duoneb 3 Mg/0.5 Mg (3 Ml) Ud INH 3 ml RQID [facility] Administration Amlodipine Besylate 5 mg 02/08/17 09:00 02/12/17 09:29 Norvasc PO 5 mg DAILY [facility] Administration Famotidine 20 mg 02/07/17 17:30 02/12/17 09:28 Pepcid PO 20 mg BID [facility] Administration Ceftazidime 1 gm/ Dextrose 50 mls @ 50 mls/hr 02/11/17 11:30 02/12/17 09:33 IV 50 mls/hr Q8 [facility] Administration Protocol Insulin Human Regular 0 units 02/08/17 16:30 02/12/17 07:06 Humulin R SC 1 units ACHS [facility] Administration Protocol Labetalol HCl 100 mg 02/07/17 17:45 02/12/17 09:30 Trandate PO 100 mg BID [facility] Administration Lactobacillus Acidophilus 1 cap 02/08/17 17:00 02/12/17 09:38 Bacid Acidophilus PO 1 cap BID [facility] Administration Linezolid 600 mg 02/11/17 15:22 02/12/17 09:28 Zyvox PO 600 mg Q12 [facility] Administration Protocol Multivitamins/Vitamin C 5 ml 02/09/17 09:00 02/12/17 09:28 Multi-Delyn Liquid PO 5 ml DAILY [facility] Administration Rivaroxaban 15 mg 02/11/17 10:08 02/11/17 16:27 Xarelto PO 15 mg QD5 [facility] Administration Protocol - Patient Studies Lab Studies: Microbiology Studies 02/09/17 09:08 Gram Stain - Final Trachasp Sputum Culture - Final Stenotrophomonas Maltophilia 02/07/17 16:15 Blood Culture - Preliminary Blood-Venous NO GROWTH AFTER 4 DAYS 02/07/17 16:20 Blood Culture - Preliminary Blood-Venous NO GROWTH AFTER 4 DAYS 02/09/17 Unknown Gram Stain - Final Drainage Wound Culture - Preliminary No growth. Lab Studies 02/12/17 02/12/17 02/12/17 Range/Units 08:00 05:54 04:20 WBC 5.0 (4.8-10.8) K/uL RBC 3.06 L (3.80-5.20) Mil/uL Hgb 9.3 L (12.0-16.0) g/dL Hct 28.5 L (34.0-47.0) % MCV 93.2 (81.0-99.0) fl MCH 30.3 (27.0-31.0) pg MCHC 32.5 L (33.0-37.0) g/dL RDW 21.0 H (11.5-14.5) % Plt Count 185 (130-400) K/uL pCO2 62 H (35-45) mm/Hg pO2 73 L (80-100) mm/Hg HCO3 32.7 H (21-28) mmol/L ABG pH 7.38 (7.35-7.45) ABG Total CO2 38.6 H (22-28) mmol/L ABG O2 Saturation 99.3 H (95-98) % ABG O2 Content 12.5 L (15-23) ML/dL ABG Base Excess 10.0 H (-2.0-3.0) mmol/L ABG Hemoglobin 9.2 L (11.7-17.4) g/dL ABG Carboxyhemoglobin 2.3 H (0.5-1.5) % POC ABG HHb (Measured) 0.7 (0.0-5.0) % ABG Methemoglobin 1.3 (0.0-3.0) % ABG O2 Capacity 12.6 L (16-24) mL/dL Rakan Test Yes A-a O2 Difference 135.0 mm/Hg Hgb O2 Saturation 95.7 (95.0-98.0) % FiO2 40.0 % Sodium (132-148) mmol/l Potassium (3.6-5.0) MMOL/L Chloride (98-107) mmol/L Carbon Dioxide (22-30) mmol/L Anion Gap (10-20) BUN (7-17) mg/dl Creatinine (0.7-1.2) mg/dL Est GFR ( Amer) Est GFR (Non-Af Amer) POC Glucose (mg/dL) 188 H (65-110) mg/dL Random Glucose (65-105) mg/dL Calcium (8.4-10.2) mg/dL Iron (37-170) ug/dL TIBC (250-450) ug/dL % Saturation (20-55) % Ferritin (11.1-264.0) ng/Ml Total Bilirubin (0.2-1.3) mg/dl AST (14-36) U/L ALT (9-52) U/L Alkaline Phosphatase (38-126) U/L Total Protein (6.3-8.2) G/DL Albumin (3.5-5.0) g/dL Globulin (2.2-3.9) gm/dL Albumin/Globulin Ratio (1.0-2.1) 11/02/17 11/02/17 11/01/17 Range/Units 04:20 04:20 21:08 WBC (4.8-10.8) K/uL RBC (3.80-5.20) Mil/uL Hgb (12.0-16.0) g/dL Hct (34.0-47.0) % MCV (81.0-99.0) fl MCH (27.0-31.0) pg MCHC (33.0-37.0) g/dL RDW (11.5-14.5) % Plt Count (130-400) K/uL pCO2 (35-45) mm/Hg pO2 (80-100) mm/Hg HCO3 (21-28) mmol/L ABG pH (7.35-7.45) ABG Total CO2 (22-28) mmol/L ABG O2 Saturation (95-98) % ABG O2 Content (15-23) ML/dL ABG Base Excess (-2.0-3.0) mmol/L ABG Hemoglobin (11.7-17.4) g/dL ABG Carboxyhemoglobin (0.5-1.5) % POC ABG HHb (Measured) (0.0-5.0) % ABG Methemoglobin (0.0-3.0) % ABG O2 Capacity (16-24) mL/dL Rakan Test A-a O2 Difference mm/Hg Hgb O2 Saturation (95.0-98.0) % FiO2 % Sodium 140 (132-148) mmol/l Potassium 4.2 (3.6-5.0) MMOL/L Chloride 100 (98-107) mmol/L Carbon Dioxide 33 H (22-30) mmol/L Anion Gap 11 (10-20) BUN 47 H (7-17) mg/dl Creatinine 1.1 (0.7-1.2) mg/dL Est GFR ( Amer) 59 Est GFR (Non-Af Amer) 49 POC Glucose (mg/dL) 174 H (65-110) mg/dL Random Glucose 159 H (65-105) mg/dL Calcium 9.4 (8.4-10.2) mg/dL Iron 161 (37-170) ug/dL TIBC 164 L (250-450) ug/dL % Saturation 98 H (20-55) % Ferritin 933.0 H (11.1-264.0) ng/Ml Total Bilirubin 0.3 (0.2-1.3) mg/dl AST 36 D (14-36) U/L ALT 49 (9-52) U/L Alkaline Phosphatase 93 (38-126) U/L Total Protein 7.0 (6.3-8.2) G/DL Albumin 3.2 L (3.5-5.0) g/dL Globulin 3.7 (2.2-3.9) gm/dL Albumin/Globulin Ratio 0.9 L (1.0-2.1) 02/11/17 02/11/17 Range/Units 16:33 11:06 WBC (4.8-10.8) K/uL RBC (3.80-5.20) Mil/uL Hgb (12.0-16.0) g/dL Hct (34.0-47.0) % MCV (81.0-99.0) fl MCH (27.0-31.0) pg MCHC (33.0-37.0) g/dL RDW (11.5-14.5) % Plt Count (130-400) K/uL pCO2 (35-45) mm/Hg pO2 (80-100) mm/Hg HCO3 (21-28) mmol/L ABG pH (7.35-7.45) ABG Total CO2 (22-28) mmol/L ABG O2 Saturation (95-98) % ABG O2 Content (15-23) ML/dL ABG Base Excess (-2.0-3.0) mmol/L ABG Hemoglobin (11.7-17.4) g/dL ABG Carboxyhemoglobin (0.5-1.5) % POC ABG HHb (Measured) (0.0-5.0) % ABG Methemoglobin (0.0-3.0) % ABG O2 Capacity (16-24) mL/dL Rakan Test A-a O2 Difference mm/Hg Hgb O2 Saturation (95.0-98.0) % FiO2 % Sodium (132-148) mmol/l Potassium (3.6-5.0) MMOL/L Chloride (98-107) mmol/L Carbon Dioxide (22-30) mmol/L Anion Gap (10-20) BUN (7-17) mg/dl Creatinine (0.7-1.2) mg/dL Est GFR ( Amer) Est GFR (Non-Af Amer) POC Glucose (mg/dL) 207 H 166 H (65-110) mg/dL Random Glucose (65-105) mg/dL Calcium (8.4-10.2) mg/dL Iron (37-170) ug/dL TIBC (250-450) ug/dL % Saturation (20-55) % Ferritin (11.1-264.0) ng/Ml Total Bilirubin (0.2-1.3) mg/dl AST (14-36) U/L ALT (9-52) U/L Alkaline Phosphatase (38-126) U/L Total Protein (6.3-8.2) G/DL Albumin (3.5-5.0) g/dL Globulin (2.2-3.9) gm/dL Albumin/Globulin Ratio (1.0-2.1) Laboratory Results - last 24 hr 02/11/17 02/11/17 02/11/17 11:06 16:33 21:08 WBC RBC Hgb Hct MCV MCH MCHC RDW Plt Count pCO2 pO2 HCO3 ABG pH ABG Total CO2 ABG O2 Saturation ABG O2 Content ABG Base Excess ABG Hemoglobin ABG Carboxyhemoglobin POC ABG HHb (Measured) ABG Methemoglobin ABG O2 Capacity Rakan Test A-a O2 Difference Hgb O2 Saturation FiO2 Sodium Potassium Chloride Carbon Dioxide Anion Gap BUN Creatinine Est GFR ( Amer) Est GFR (Non-Af Amer) POC Glucose (mg/dL) 166 H 207 H 174 H Random Glucose Calcium Iron TIBC % Saturation Ferritin Total Bilirubin AST ALT Alkaline Phosphatase Total Protein Albumin Globulin Albumin/Globulin Ratio 02/12/17 02/12/17 02/12/17 04:20 04:20 04:20 WBC 5.0 RBC 3.06 L Hgb 9.3 L Hct 28.5 L MCV 93.2 MCH 30.3 MCHC 32.5 L RDW 21.0 H Plt Count 185 pCO2 pO2 HCO3 ABG pH ABG Total CO2 ABG O2 Saturation ABG O2 Content ABG Base Excess ABG Hemoglobin ABG Carboxyhemoglobin POC ABG HHb (Measured) ABG Methemoglobin ABG O2 Capacity Rakan Test A-a O2 Difference Hgb O2 Saturation FiO2 Sodium 140 Potassium 4.2 Chloride 100 Carbon Dioxide 33 H Anion Gap 11 BUN 47 H Creatinine 1.1 Est GFR ( Amer) 59 Est GFR (Non-Af Amer) 49 POC Glucose (mg/dL) Random Glucose 159 H Calcium 9.4 Iron 161 TIBC 164 L % Saturation 98 H Ferritin 933.0 H Total Bilirubin 0.3 AST 36 D ALT 49 Alkaline Phosphatase 93 Total Protein 7.0 Albumin 3.2 L Globulin 3.7 Albumin/Globulin Ratio 0.9 L 02/12/17 02/12/17 05:54 08:00 WBC RBC Hgb Hct MCV MCH MCHC RDW Plt Count pCO2 62 H pO2 73 L HCO3 32.7 H ABG pH 7.38 ABG Total CO2 38.6 H ABG O2 Saturation 99.3 H ABG O2 Content 12.5 L ABG Base Excess 10.0 H ABG Hemoglobin 9.2 L ABG Carboxyhemoglobin 2.3 H POC ABG HHb (Measured) 0.7 ABG Methemoglobin 1.3 ABG O2 Capacity 12.6 L Rakan Test Yes A-a O2 Difference 135.0 Hgb O2 Saturation 95.7 FiO2 40.0 Sodium Potassium Chloride Carbon Dioxide Anion Gap BUN Creatinine Est GFR ( Amer) Est GFR (Non-Af Amer) POC Glucose (mg/dL) 188 H Random Glucose Calcium Iron TIBC % Saturation Ferritin Total Bilirubin AST ALT Alkaline Phosphatase Total Protein Albumin Globulin Albumin/Globulin Ratio Fingerstick Blood Sugar Results: 188 Review of Systems - Review of Systems Systems not reviewed;Unavailable: Altered Mental Status Critical Care Progress Note - Extremities/Vascular Does the Patient have a Central Venous Catheter?: No Does the Patient need a Central Venous Catheter?: No Does the Patient have a Atkins Catheter?: Yes Does the Patient need a Atkins Catheter?: Yes Catheter Insertion Criteria: Need for accurate measurement of output in critically ill patient - Prophylaxis GI Prophylaxis GI: Pepsid - Prophylaxis DVT Prophylaxis DVT: Not Indicated
--- NOTE | 2017-02-12 12:10 | CT ---
PROCEDURE: CT HEAD WITHOUT CONTRAST. HISTORY: AMS COMPARISON: None available. TECHNIQUE: Axial computed tomography images were obtained through the head/brain without intravenous contrast. Radiation dose: Total exam DLP = 1466.55 mGy-cm. This CT exam was performed using one or more of the following dose reduction techniques: Automated exposure control, adjustment of the mA and/or kV according to patient size, and/or use of iterative reconstruction technique. FINDINGS: HEMORRHAGE: No intracranial hemorrhage. BRAIN: No mass effect or edema. Mild atrophy. Moderate periventricular white matter lucency with patchy and confluent areas of deep and subcortical white matter lucency consistent with age-related microvascular ischemic change. No evidence of acute infarct. VENTRICLES: Unremarkable. No hydrocephalus. CALVARIUM: Unremarkable. PARANASAL SINUSES: Mild chronic sphenoid sinusitis. MASTOID AIR CELLS: Nonspecific right mastoid effusion. OTHER FINDINGS: None. IMPRESSION: No intracranial mass, hemorrhage or evidence of acute infarct. Age related involutional change. Mild chronic sphenoid sinusitis. Nonspecific right mastoid effusion.
--- NOTE | 2017-02-12 13:10 | CP.PCM.PN ---
Subjective - Date & Time of Evaluation Date of Evaluation: 02/12/17 Time of Evaluation: 13:07 - Subjective Subjective: Patient seen and examined with attending. Withdraws to pain. Remains non verbal. CT head done today to evaluate mental status change. Patient is hemodynamically stable. Has trach collar. Continue with IV Fortaz and Zyvox for + sputum/urine cultures, respectively. Awaiting placement in LTAC. Objective - Vital Signs/Intake and Output Vital Signs (last 24 hours): Temp Pulse Resp BP Pulse Ox 97.8 F 59 L 12 142/67 100 02/12/17 12:00 02/12/17 12:00 02/12/17 12:00 02/12/17 12:00 02/12/17 12:00 Intake and Output: 02/12/17 02/12/17 06:59 18:59 Intake Total 710 330 Output Total 300 225 Balance 410 105 - Medications Medications: Current Medications Acetylcysteine (Mucomyst 10% 4ml) 2 ml IH RBID [facility] Last Admin: 02/12/17 07:41 Dose: 2 ml Albuterol/Ipratropium (Duoneb 3 Mg/0.5 Mg (3 Ml) Ud) 3 ml INH RQID [facility] Last Admin: 02/12/17 11:05 Dose: Not Given Amlodipine Besylate (Norvasc) 5 mg PO DAILY [facility] Last Admin: 02/12/17 09:29 Dose: 5 mg Famotidine (Pepcid) 20 mg PO BID [facility] Last Admin: 02/12/17 09:28 Dose: 20 mg Ceftazidime 1 gm/ Dextrose 50 mls @ 50 mls/hr IV Q8 [facility] PRN Reason: Protocol Last Admin: 02/12/17 09:33 Dose: 50 mls/hr Insulin Human Regular (Humulin R) 0 units SC ACHS [facility] PRN Reason: Protocol Last Admin: 02/12/17 12:20 Dose: 1 units Labetalol HCl (Trandate) 100 mg PO BID [facility] Last Admin: 02/12/17 09:30 Dose: 100 mg Lactobacillus Acidophilus (Bacid Acidophilus) 1 cap PO BID [facility] Last Admin: 02/12/17 09:38 Dose: 1 cap Linezolid (Zyvox) 600 mg PO Q12 [facility] PRN Reason: Protocol Last Admin: 02/12/17 09:28 Dose: 600 mg Multivitamins/Vitamin C (Multi-Delyn Liquid) 5 ml PO DAILY [facility] Last Admin: 02/12/17 09:28 Dose: 5 ml Rivaroxaban (Xarelto) 15 mg PO QD5 [facility] PRN Reason: Protocol Last Admin: 02/11/17 16:27 Dose: 15 mg - Labs Labs: 02/12/17 04:20 02/12/17 04:20 - Constitutional Appears: Non-toxic, No Acute Distress - Respiratory Exam Respiratory Exam: Clear to Ausculation Bilateral, NORMAL BREATHING PATTERN - Cardiovascular Exam Cardiovascular Exam: Irregular Rhythm, +S1, +S2. absent: Bradycardia, Tachycardia - GI/Abdominal Exam GI & Abdominal Exam: Soft. absent: Distended - Extremities Exam Extremities Exam: Normal Inspection. absent: Pedal Edema - Neurological Exam Additional comments: non verbal, unresponsive - Skin Skin Exam: Dry, Intact Assessment and Plan - Assessment and Plan (Free Text) Assessment: 71 year old female with acute respiratory failure likely 2' to aspiration PNA vs hospital acquired. Patient is hemodynamically stable. CT head negative for acute changes. [facility]. Trach culture:stenotrophomonas maltopilia Urine culture: vancomycin resistant enterfacieum: ID consult appreciated # Acute respiratory failure w/ hypercapnia # Aspiration pneumonia VS HCAP # UTI # Type 2 DM # Chronic Anemia # Chronic Atrial fibrilation # Prophylaxis - Continue with Day 2 Ceftazidime and Zyvox - Continue with Sliding scale - Monitor CBC for Chronic anemia - Continue Xarelto/digoxin/labetolol/norvasc - Pepcid for GI prophylaxis
[2017-02-13 06:26] LABS: HEMATOCRIT 30.8 % (34.0-47.0); MEAN CORPUSCULAR HEMOGLOBIN 30.3 pg (27.0-31.0); MEAN CORPUSCULAR HGB CONC 32.9 g/dL (33.0-37.0); RED CELL DISTRIBUTION WIDTH 20.8 % (11.5-14.5); WHITE BLOOD COUNT 4.6 K/uL (4.8-10.8)
[2017-02-13 06:35] LABS: ALKALINE PHOSPHATASE 99 U/L (38-126); ALT/SGPT 45 U/L (9-52); AST/SGOT 32 U/L (14-36); BILIRUBIN,TOTAL 0.4 mg/dl (0.2-1.3); BLOOD UREA NITROGEN 43 mg/dl (7-17); CALCIUM 9.3 mg/dL (8.4-10.2); CARBON DIOXIDE 34 mmol/L (22-30); CHLORIDE 98 mmol/L (98-107); GFR AFRICAN-AMERICAN > 60; GLUCOSE,RANDOM 130 mg/dL (65-105); SODIUM 138 mmol/l (132-148)
[2017-02-13 06:38] LABS: ALB/GLOB RATIO 0.8 (1.0-2.1)
[2017-02-13] MEDS: Insulin Regular 100 units/ml SC SCH ×4 (06:58→22:36)
[2017-02-13] MEDS: Acetylcysteine 10% 4 ML IH SCH ×2 (07:15→19:15)
[2017-02-13] MEDS: Albuterol-Ipratrop 3 mg / 0.5 (3 ml) UD INH SCH ×4 (07:15→19:15)
--- NOTE | 2017-02-13 08:34 | CP.CCUPN ---
CCU Subjective - Physician Review Subjective (Free Text): Perhaps slight improvement in neuromental status with eye opening when name is called, but not otherwise interactive. Stable on Trach collar, no distress. Nurses report much loose secretions noted. Other vitals and I/O's reviewed. No hypotension noted. No fever spikes. ROS: unobtainable; no other pertinent negs or positives on 10+ system review. PMSFH: Recent PEG placement at and discharged from [facility] for severe malnutrition 2 months ago; bed bound, CHF, A Fib, Anemia, Atrial Fibrillation, severe Dementia, Emphysema, HTN, Hypercholesterolemia. All Nursing and physician documentation reviewed to date; no new pertinent info noted relevant to current medical problems. CXR: no overall chnage from persistent Bi- basilar interstitial changes seen, left hemidiaphragm not visisble ( my interp). MAJOR PROBLEMS: 1. Acute Hypercarbic Resp Failure, 2 Mucous Plugging at the [place]. 2. Bilateral Pneumonia, suspect aspiration event 3. Azotemia with Dehydration and Hyperkalemia 4. Chronic Disease Anemia, r/o acute GI Blood loss. 5. Paroxsymal A Fib 6. Transaminitis / Abnormal LFTs-resolved PLAN: 1. Trach collar as tolerated. Continue pulm toilet measures / frequent suctioning as tolerated. 3. Stopped Steroids. 4. 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 5. Stopped Iron sucrose therapy noted, repeat Fe stores all adequate. 6. Watch for bradycardic effects from Digoxin and Trandate. Stopped Digoxin for rate control as its being accomplished by Trandate. 7. Xarelto resumed as CT Brain shows no new or acute pathology. ABGs still reflect hypercarbia but not to the extent to explain current AMS. 8. Will need GI eval to eventually replace PEG that was pulled by patient in [place]. CCU Objective - Vital Signs / Intake & Output Vital Signs (Last 4 hours): Vital Signs Temp Pulse Resp BP Pulse Ox 02/13/17 08:00 97.3 F L 79 163/72 H 98 02/13/17 06:00 74 14 146/111 H 100 Intake and Output (Last 8hrs): Intake & Output 02/12/17 02/13/17 02/13/17 22:59 06:59 14:59 Intake Total 390 490 Output Total 250 400 Balance 140 90 Intake: Intake, Piggyback 50 50 Tube Feeding 240 240 Free Water Flush 100 200 Output: Urine 250 400 Urethral (Atkins) 250 400 Other: # Bowel Movements 1 1 - Physical Exam Head: Positive for: Normocephalic Pupils: Positive for: PERRL Extroacular Muscles: Positive for: EOMI. Negative for: Gaze Palsy Conjunctiva: Positive for: Normal. Negative for: Icteric Ears: Positive for: Normal, NORMAL TM. Negative for: Erythema Mouth: Positive for: Moist Mucous Membranes Pharnyx: Positive for: Normal. Negative for: ERYTHEMA Nose (Internal): Positive for: Normal Inspection Neck: Positive for: Trachea Midline. Negative for: JVD Respiratory/Chest: Positive for: Clear to Auscultation, Decreased Breath Sounds. Negative for: Accessory Muscle Use, Wheezes Cardiovascular: Positive for: Irregular Rhythm. Negative for: Murmurs, Rub Abdomen: Positive for: Normal Bowel Sounds, Hernias, Feeding Tubes (PEG site clean/intact). Negative for: Tenderness, Distention, Mass/Organomegaly Upper Extremity: Positive for: Normal Inspection, NORMAL PULSES, Capillary Refill < 2s. Negative for: Cyanosis, Edema Lower Extremity: Positive for: Edema, NORMAL PULSES. Negative for: CALF TENDERNESS Neurological: Positive for: GCS=15, Motor Func Grossly Intact Skin: Positive for: Warm. Negative for: Rashes Psychiatric: Positive for: Alert, Normal Affect - Medications Active Medications: Active Medications Generic Name Dose Route Start Last Admin Trade Name Freq PRN Reason Stop Dose Admin Acetylcysteine 2 ml 02/07/17 20:00 02/13/17 07:15 Mucomyst 10% 4ml IH 2 ml RBID [facility] Administration Albuterol/Ipratropium 3 ml 02/07/17 20:00 02/13/17 07:15 Duoneb 3 Mg/0.5 Mg (3 Ml) Ud INH 3 ml RQID [facility] Administration Amlodipine Besylate 5 mg 02/08/17 09:00 02/12/17 09:29 Norvasc PO 5 mg DAILY [facility] Administration Famotidine 20 mg 02/07/17 17:30 02/12/17 17:23 Pepcid PO 20 mg BID [facility] Administration Ceftazidime 1 gm/ Dextrose 50 mls @ 50 mls/hr 02/11/17 11:30 02/13/17 00:47 IV 50 mls/hr Q8 [facility] Administration Protocol Insulin Human Regular 0 units 02/08/17 16:30 02/13/17 06:58 Humulin R SC 1 units ACHS [facility] Administration Protocol Labetalol HCl 100 mg 02/07/17 17:45 02/12/17 17:25 Trandate PO 100 mg BID [facility] Administration Lactobacillus Acidophilus 1 cap 02/08/17 17:00 02/12/17 17:22 Bacid Acidophilus PO 1 cap BID [facility] Administration Linezolid 600 mg 02/11/17 15:22 02/12/17 20:41 Zyvox PO 600 mg Q12 [facility] Administration Protocol Multivitamins/Vitamin C 5 ml 02/09/17 09:00 02/12/17 09:28 Multi-Delyn Liquid PO 5 ml DAILY [facility] Administration Rivaroxaban 15 mg 02/11/17 10:08 02/12/17 17:51 Xarelto PO 15 mg QD5 [facility] Administration Protocol - Patient Studies Lab Studies: Microbiology Studies 02/07/17 16:15 Blood Culture - Final Blood-Venous NO GROWTH AFTER 5 DAYS Gram Stain - Final TEST NOT PERFORMED 02/07/17 16:20 Blood Culture - Final Blood-Venous NO GROWTH AFTER 5 DAYS Gram Stain - Final TEST NOT PERFORMED 02/09/17 Unknown Gram Stain - Final Drainage Wound Culture - Final No growth. 02/09/17 09:08 Gram Stain - Final Trachasp Sputum Culture - Final Stenotrophomonas Maltophilia Lab Studies 02/13/17 02/13/17 02/13/17 Range/Units 05:45 05:45 05:33 WBC 4.6 L (4.8-10.8) K/uL RBC 3.35 L (3.80-5.20) Mil/uL Hgb 10.1 L (12.0-16.0) g/dL Hct 30.8 L (34.0-47.0) % MCV 92.0 (81.0-99.0) fl MCH 30.3 (27.0-31.0) pg MCHC 32.9 L (33.0-37.0) g/dL RDW 20.8 H (11.5-14.5) % Plt Count 217 (130-400) K/uL Sodium 138 (132-148) mmol/l Potassium 4.0 (3.6-5.0) MMOL/L Chloride 98 (98-107) mmol/L Carbon Dioxide 34 H (22-30) mmol/L Anion Gap 10 (10-20) BUN 43 H (7-17) mg/dl Creatinine 1.0 (0.7-1.2) mg/dL Est GFR ( Amer) > 60 Est GFR (Non-Af Amer) 54 POC Glucose (mg/dL) 152 H (65-110) mg/dL Random Glucose 130 H (65-105) mg/dL Calcium 9.3 (8.4-10.2) mg/dL Total Bilirubin 0.4 (0.2-1.3) mg/dl AST 32 (14-36) U/L ALT 45 (9-52) U/L Alkaline Phosphatase 99 (38-126) U/L Total Protein 7.0 (6.3-8.2) G/DL Albumin 3.2 L (3.5-5.0) g/dL Globulin 3.8 (2.2-3.9) gm/dL Albumin/Globulin Ratio 0.8 L (1.0-2.1) 02/12/17 02/12/17 02/12/17 Range/Units 21:24 16:59 11:22 WBC (4.8-10.8) K/uL RBC (3.80-5.20) Mil/uL Hgb (12.0-16.0) g/dL Hct (34.0-47.0) % MCV (81.0-99.0) fl MCH (27.0-31.0) pg MCHC (33.0-37.0) g/dL RDW (11.5-14.5) % Plt Count (130-400) K/uL Sodium (132-148) mmol/l Potassium (3.6-5.0) MMOL/L Chloride (98-107) mmol/L Carbon Dioxide (22-30) mmol/L Anion Gap (10-20) BUN (7-17) mg/dl Creatinine (0.7-1.2) mg/dL Est GFR ( Amer) Est GFR (Non-Af Amer) POC Glucose (mg/dL) 155 H 128 H 177 H (65-110) mg/dL Random Glucose (65-105) mg/dL Calcium (8.4-10.2) mg/dL Total Bilirubin (0.2-1.3) mg/dl AST (14-36) U/L ALT (9-52) U/L Alkaline Phosphatase (38-126) U/L Total Protein (6.3-8.2) G/DL Albumin (3.5-5.0) g/dL Globulin (2.2-3.9) gm/dL Albumin/Globulin Ratio (1.0-2.1) Laboratory Results - last 24 hr 02/12/17 02/12/17 02/12/17 11:22 16:59 21:24 WBC RBC Hgb Hct MCV MCH MCHC RDW Plt Count Sodium Potassium Chloride Carbon Dioxide Anion Gap BUN Creatinine Est GFR ( Amer) Est GFR (Non-Af Amer) POC Glucose (mg/dL) 177 H 128 H 155 H Random Glucose Calcium Total Bilirubin AST ALT Alkaline Phosphatase Total Protein Albumin Globulin Albumin/Globulin Ratio 02/13/17 02/13/17 02/13/17 05:33 05:45 05:45 WBC 4.6 L RBC 3.35 L Hgb 10.1 L Hct 30.8 L MCV 92.0 MCH 30.3 MCHC 32.9 L RDW 20.8 H Plt Count 217 Sodium 138 Potassium 4.0 Chloride 98 Carbon Dioxide 34 H Anion Gap 10 BUN 43 H Creatinine 1.0 Est GFR ( Amer) > 60 Est GFR (Non-Af Amer) 54 POC Glucose (mg/dL) 152 H Random Glucose 130 H Calcium 9.3 Total Bilirubin 0.4 AST 32 ALT 45 Alkaline Phosphatase 99 Total Protein 7.0 Albumin 3.2 L Globulin 3.8 Albumin/Globulin Ratio 0.8 L Fingerstick Blood Sugar Results: 152 Review of Systems - Review of Systems Systems not reviewed;Unavailable: Altered Mental Status
[2017-02-13] MEDS: Multiple Vitamins Oral Solution PO SCH (08:49)
[2017-02-13] MEDS: Lactobacillus Acidophilus 500 MU Cap PO SCH ×2 (08:49→17:01)
--- NOTE | 2017-02-13 08:53 | RAD ---
HISTORY: Bronchorrhea COMPARISON: 02/11/2017 FINDINGS: There is stable position of tracheostomy tube terminating in the mid trachea. The nasogastric tube terminates in the distal esophagus. LUNGS: There is redemonstration of right lower lobe airspace disease. PLEURA: There is worsening moderate right pleural effusion and presumable stable small left pleural effusion. CARDIOVASCULAR: There is stable mild cardiomegaly OSSEOUS STRUCTURES: No significant abnormalities. VISUALIZED UPPER ABDOMEN: Normal. OTHER FINDINGS: None. IMPRESSION: Worsening moderate right pleural effusion/lower lobe airspace disease. Nasogastric tube terminates in the distal esophagus. Repositioning is recommended.
--- NOTE | 2017-02-13 10:35 | CP.PCM.PN ---
Subjective - Date & Time of Evaluation Date of Evaluation: 02/13/17 Time of Evaluation: 10:34 - Subjective Subjective: No acute overnight events. Patient seen and examined with Dr. Templeton. TRach collar in place. NG tube in place, tube feeds running @30cc/hr. Patient slightly more arousable today. GI consult to replace PEG tube . Case d/w Dr. Camara. Patient for LTAC placement. Objective - Vital Signs/Intake and Output Vital Signs (last 24 hours): Temp Pulse Resp BP Pulse Ox 97.3 F L 84 14 146/96 H 98 02/13/17 08:00 02/13/17 08:51 02/13/17 06:00 02/13/17 08:51 02/13/17 08:00 Intake and Output: 02/13/17 02/13/17 06:59 18:59 Intake Total 610 60 Output Total 400 Balance 210 60 - Medications Medications: Current Medications Acetylcysteine (Mucomyst 10% 4ml) 2 ml IH RBID [facility] Last Admin: 02/13/17 07:15 Dose: 2 ml Albuterol/Ipratropium (Duoneb 3 Mg/0.5 Mg (3 Ml) Ud) 3 ml INH RQID [facility] Last Admin: 02/13/17 07:15 Dose: 3 ml Amlodipine Besylate (Norvasc) 5 mg PO DAILY [facility] Last Admin: 02/13/17 08:50 Dose: 5 mg Famotidine (Pepcid) 20 mg PO BID [facility] Last Admin: 02/13/17 08:49 Dose: 20 mg Ceftazidime 1 gm/ Dextrose 50 mls @ 50 mls/hr IV Q8 [facility] PRN Reason: Protocol Last Admin: 02/13/17 08:52 Dose: 50 mls/hr Insulin Human Regular (Humulin R) 0 units SC ACHS [facility] PRN Reason: Protocol Last Admin: 02/13/17 06:58 Dose: 1 units Labetalol HCl (Trandate) 100 mg PO BID [facility] Last Admin: 02/13/17 08:51 Dose: 100 mg Lactobacillus Acidophilus (Bacid Acidophilus) 1 cap PO BID [facility] Last Admin: 02/13/17 08:49 Dose: 1 cap Linezolid (Zyvox) 600 mg PO Q12 [facility] PRN Reason: Protocol Last Admin: 02/13/17 08:50 Dose: 600 mg Multivitamins/Vitamin C (Multi-Delyn Liquid) 5 ml PO DAILY [facility] Last Admin: 02/13/17 08:49 Dose: 5 ml Rivaroxaban (Xarelto) 15 mg PO QD5 [facility] PRN Reason: Protocol Last Admin: 02/12/17 17:51 Dose: 15 mg - Labs Labs: 02/13/17 05:45 02/13/17 05:45 - Constitutional Appears: Non-toxic, Chronically Ill - Head Exam Head Exam: NORMOCEPHALIC - Eye Exam Eye Exam: absent: Conjunctival injection, Scleral icterus - ENT Exam ENT Exam: Mucous Membranes Moist - Respiratory Exam Respiratory Exam: Clear to Ausculation Bilateral, NORMAL BREATHING PATTERN. absent: Respiratory Distress - Cardiovascular Exam Cardiovascular Exam: Irregular Rhythm, +S1, +S2 - GI/Abdominal Exam GI & Abdominal Exam: Soft. absent: Distended, Tenderness - Rectal Exam Rectal Exam: Deferred - Extremities Exam Extremities Exam: Normal Capillary Refill, Normal Inspection. absent: Pedal Edema - Skin Skin Exam: Dry, Intact Assessment and Plan - Assessment and Plan (Free Text) Assessment: 71 year old female with acute respiratory failure likely 2' to aspiration PNA vs hospital acquired. PAtient seen and evaluated by GI: Dr. Camara, scheduled for PEG tube thursday. Will hold xarelto for procedure. Continue with NG tube feeding for now. Pending pantry chef acute care placement. Trach culture:stenotrophomonas maltopilia Urine culture: vancomycin resistant enterfacieum: ID consult appreciated # Acute respiratory failure w/ hypercapnia - RESOLVED # Aspiration pneumonia VS HCAP -improving # UTI # Type 2 DM # Chronic Anemia # Chronic Atrial fibrilation # Prophylaxis - Continue with Day 3 Ceftazidime and Zyvox - Continue with Sliding scale - Hold Xarelto for PEG tube thursday - repeat urine c&s - Continue digoxin/labetolol/norvasc - Pepcid for GI prophylaxis
--- NOTE | 2017-02-13 12:12 | CP.PCM.PN ---
Subjective - Date & Time of Evaluation Date of Evaluation: 02/13/17 Time of Evaluation: 12:13 - Subjective Subjective: no new clinical findings trach site clean o2 sat-100% Objective - Vital Signs/Intake and Output Vital Signs (last 24 hours): Temp Pulse Resp BP Pulse Ox 97.3 F L 66 18 133/63 100 02/13/17 08:00 02/13/17 10:00 02/13/17 10:00 02/13/17 10:00 02/13/17 10:00 Intake and Output: 02/13/17 02/13/17 06:59 18:59 Intake Total 610 270 Output Total 400 250 Balance 210 20 - Medications Medications: Current Medications Acetylcysteine (Mucomyst 10% 4ml) 2 ml IH RBID [facility] Last Admin: 02/13/17 07:15 Dose: 2 ml Albuterol/Ipratropium (Duoneb 3 Mg/0.5 Mg (3 Ml) Ud) 3 ml INH RQID [facility] Last Admin: 02/13/17 11:18 Dose: 3 ml Amlodipine Besylate (Norvasc) 5 mg PO DAILY [facility] Last Admin: 02/13/17 08:50 Dose: 5 mg Famotidine (Pepcid) 20 mg PO BID [facility] Last Admin: 02/13/17 08:49 Dose: 20 mg Ceftazidime 1 gm/ Dextrose 50 mls @ 50 mls/hr IV Q8 [facility] PRN Reason: Protocol Last Admin: 02/13/17 08:52 Dose: 50 mls/hr Insulin Human Regular (Humulin R) 0 units SC ACHS [facility] PRN Reason: Protocol Last Admin: 02/13/17 11:34 Dose: 1 units Labetalol HCl (Trandate) 100 mg PO BID [facility] Last Admin: 02/13/17 08:51 Dose: 100 mg Lactobacillus Acidophilus (Bacid Acidophilus) 1 cap PO BID [facility] Last Admin: 02/13/17 08:49 Dose: 1 cap Linezolid (Zyvox) 600 mg PO Q12 [facility] PRN Reason: Protocol Last Admin: 02/13/17 08:50 Dose: 600 mg Multivitamins/Vitamin C (Multi-Delyn Liquid) 5 ml PO DAILY [facility] Last Admin: 02/13/17 08:49 Dose: 5 ml Rivaroxaban (Xarelto) 15 mg PO QD5 [facility] PRN Reason: Protocol Last Admin: 02/12/17 17:51 Dose: 15 mg - Labs Labs: 02/13/17 05:45 02/13/17 05:45 - Constitutional Appears: No Acute Distress - Head Exam Head Exam: ATRAUMATIC, NORMAL INSPECTION, NORMOCEPHALIC - Eye Exam Eye Exam: EOMI, Normal appearance, PERRL Pupil Exam: NORMAL ACCOMODATION, PERRL - ENT Exam ENT Exam: Mucous Membranes Moist, Normal Exam Additional comments: trach in place - Neck Exam Neck Exam: Full ROM, Normal Inspection. absent: Lymphadenopathy - Respiratory Exam Respiratory Exam: Clear to Ausculation Bilateral, NORMAL BREATHING PATTERN - Cardiovascular Exam Cardiovascular Exam: REGULAR RHYTHM, +S1, +S2. absent: Murmur - GI/Abdominal Exam GI & Abdominal Exam: Soft, Normal Bowel Sounds. absent: Tenderness - Rectal Exam Rectal Exam: NORMAL INSPECTION - Extremities Exam Extremities Exam: Full ROM, Normal Capillary Refill, Normal Inspection. absent : Joint Swelling, Pedal Edema - Back Exam Back Exam: NORMAL INSPECTION - Neurological Exam Neurological Exam: Awake - Skin Skin Exam: Dry, Intact, Normal Color, Warm Assessment and Plan - Assessment and Plan (Free Text) Assessment: respiratory failure resolved pneumonia--aspiration--improved mucus plugging of airways improved Plan: continue airway toiletry
[2017-02-14] MEDS: Albuterol-Ipratrop 3 mg / 0.5 (3 ml) UD INH SCH ×4 (07:34→19:24)
[2017-02-14] MEDS: Acetylcysteine 10% 4 ML IH SCH ×2 (07:34→19:24)
[2017-02-14] MEDS: Multiple Vitamins Oral Solution PO SCH (09:37)
[2017-02-14] MEDS: Insulin Regular 100 units/ml SC SCH ×4 (09:37→22:40)
[2017-02-14] MEDS: Lactobacillus Acidophilus 500 MU Cap PO SCH ×2 (09:39→16:31)
--- NOTE | 2017-02-14 12:45 | CP.PCM.PN ---
Subjective - Date & Time of Evaluation Date of Evaluation: 02/14/17 Time of Evaluation: 12:46 - Subjective Subjective: NO NEW CLINICAL FINDINGS TRANSFERRED OUT OF ICU TRACH SITE CLEAN NO RESPIRATORY DISTRESS O2 SAT 100% Objective - Vital Signs/Intake and Output Vital Signs (last 24 hours): Temp Pulse Resp BP Pulse Ox 97.8 F 78 18 146/80 98 02/14/17 08:29 02/14/17 09:36 02/14/17 08:29 02/14/17 09:36 02/14/17 08:29 - Medications Medications: Current Medications Acetylcysteine (Mucomyst 10% 4ml) 2 ml IH RBID [facility] Last Admin: 02/14/17 07:34 Dose: 2 ml Albuterol/Ipratropium (Duoneb 3 Mg/0.5 Mg (3 Ml) Ud) 3 ml INH RQID [facility] Last Admin: 02/14/17 11:19 Dose: 3 ml Amlodipine Besylate (Norvasc) 5 mg PO DAILY [facility] Last Admin: 02/14/17 09:36 Dose: 5 mg Famotidine (Pepcid) 20 mg PO BID [facility] Last Admin: 02/14/17 09:39 Dose: 20 mg Ceftazidime 1 gm/ Dextrose 50 mls @ 50 mls/hr IV Q8 [facility] PRN Reason: Protocol Last Admin: 02/14/17 09:35 Dose: 50 mls/hr Insulin Human Regular (Humulin R) 0 units SC ACHS [facility] PRN Reason: Protocol Last Admin: 02/14/17 09:37 Dose: Not Given Labetalol HCl (Trandate) 100 mg PO BID [facility] Last Admin: 02/14/17 09:36 Dose: 100 mg Lactobacillus Acidophilus (Bacid Acidophilus) 1 cap PO BID [facility] Last Admin: 02/14/17 09:39 Dose: 1 cap Linezolid (Zyvox) 600 mg PO Q12 [facility] PRN Reason: Protocol Last Admin: 02/14/17 09:36 Dose: 600 mg Multivitamins/Vitamin C (Multi-Delyn Liquid) 5 ml PO DAILY [facility] Last Admin: 02/14/17 09:37 Dose: 5 ml Rivaroxaban (Xarelto) 15 mg PO QD5 [facility] PRN Reason: Protocol Last Admin: 02/13/17 17:04 Dose: Not Given - Labs Labs: 02/13/17 05:45 02/13/17 05:45 - Constitutional Appears: No Acute Distress - Head Exam Head Exam: ATRAUMATIC, NORMAL INSPECTION, NORMOCEPHALIC - Eye Exam Eye Exam: EOMI, Normal appearance, PERRL Pupil Exam: NORMAL ACCOMODATION, PERRL - ENT Exam ENT Exam: Mucous Membranes Moist, Normal Exam - Neck Exam Neck Exam: Full ROM, Normal Inspection. absent: Lymphadenopathy - Respiratory Exam Respiratory Exam: Prolonged Expiratory Phase, Rales, NORMAL BREATHING PATTERN - Cardiovascular Exam Cardiovascular Exam: REGULAR RHYTHM, +S1, +S2. absent: Murmur - GI/Abdominal Exam GI & Abdominal Exam: Soft, Normal Bowel Sounds. absent: Tenderness - Rectal Exam Rectal Exam: NORMAL INSPECTION - Extremities Exam Extremities Exam: Full ROM, Normal Capillary Refill, Normal Inspection. absent : Joint Swelling, Pedal Edema - Back Exam Back Exam: NORMAL INSPECTION - Skin Skin Exam: Dry, Intact, Normal Color, Warm Assessment and Plan - Assessment and Plan (Free Text) Assessment: RESPIRATORY FAILURE--IMPROVED ASPIRATION PNEUMONIA--IMPROVED MUCUS PLUGGING OF AIRWAYS Plan: CONTINUE PULMONARY TOILETRY WILL NEED PEG PROGNOSIS IS GUARDED
--- NOTE | 2017-02-14 18:46 | CP.PCM.PN ---
Subjective - Date & Time of Evaluation Date of Evaluation: 02/14/17 Time of Evaluation: 18:45 - Subjective Subjective: I D NOTE UNCHANGED CLINICALLY AWAITING REPEAT URINE CULTURES CONTINUE ZYVOX VIA NG TUBE Objective - Vital Signs/Intake and Output Vital Signs (last 24 hours): Temp Pulse Resp BP Pulse Ox 97.4 F L 76 18 116/71 96 02/14/17 15:45 02/14/17 16:30 02/14/17 15:45 02/14/17 16:30 02/14/17 15:45 - Medications Medications: Current Medications Acetylcysteine (Mucomyst 10% 4ml) 2 ml IH RBID [facility] Last Admin: 02/14/17 07:34 Dose: 2 ml Albuterol/Ipratropium (Duoneb 3 Mg/0.5 Mg (3 Ml) Ud) 3 ml INH RQID [facility] Last Admin: 02/14/17 15:09 Dose: 3 ml Amlodipine Besylate (Norvasc) 5 mg PO DAILY [facility] Last Admin: 02/14/17 09:36 Dose: 5 mg Famotidine (Pepcid) 20 mg PO BID [facility] Last Admin: 02/14/17 16:29 Dose: 20 mg Ceftazidime 1 gm/ Dextrose 50 mls @ 50 mls/hr IV Q8 [facility] PRN Reason: Protocol Last Admin: 02/14/17 16:28 Dose: 50 mls/hr Insulin Human Regular (Humulin R) 0 units SC ACHS [facility] PRN Reason: Protocol Last Admin: 02/14/17 16:29 Dose: 1 units Labetalol HCl (Trandate) 100 mg PO BID [facility] Last Admin: 02/14/17 16:30 Dose: 100 mg Lactobacillus Acidophilus (Bacid Acidophilus) 1 cap PO BID [facility] Last Admin: 02/14/17 16:31 Dose: 1 cap Linezolid (Zyvox) 600 mg PO Q12 [facility] PRN Reason: Protocol Last Admin: 02/14/17 09:36 Dose: 600 mg Multivitamins/Vitamin C (Multi-Delyn Liquid) 5 ml PO DAILY [facility] Last Admin: 02/14/17 09:37 Dose: 5 ml Rivaroxaban (Xarelto) 15 mg PO QD5 [facility] PRN Reason: Protocol Last Admin: 02/13/17 17:04 Dose: Not Given - Labs Labs: 02/13/17 05:45 02/13/17 05:45
--- NOTE | 2017-02-14 23:15 | CP.PCM.PN ---
Subjective - Date & Time of Evaluation Date of Evaluation: 02/14/17 Time of Evaluation: 19:30 - Subjective Subjective: patient responds to simple commands and tries to open eyes when name is called. CT scan of the brain was negative for bleed. Objective - Vital Signs/Intake and Output Vital Signs (last 24 hours): Temp Pulse Resp BP Pulse Ox 97.6 F 73 18 104/57 L 95 02/14/17 19:26 02/14/17 19:26 02/14/17 19:26 02/14/17 19:26 02/14/17 19:26 Intake and Output: 02/14/17 02/15/17 18:59 05:59 Intake Total 860 Output Total 300 Balance 560 - Medications Medications: Current Medications Acetylcysteine (Mucomyst 10% 4ml) 2 ml IH RBID [facility] Last Admin: 02/14/17 19:24 Dose: 2 ml Amlodipine Besylate (Norvasc) 5 mg PO DAILY [facility] Last Admin: 02/14/17 09:36 Dose: 5 mg Famotidine (Pepcid) 20 mg PO BID [facility] Last Admin: 02/14/17 16:29 Dose: 20 mg Ceftazidime 1 gm/ Dextrose 50 mls @ 50 mls/hr IV Q8 [facility] PRN Reason: Protocol Last Admin: 02/14/17 16:28 Dose: 50 mls/hr Insulin Human Regular (Humulin R) 0 units SC ACHS [facility] PRN Reason: Protocol Last Admin: 02/14/17 22:40 Dose: Not Given Labetalol HCl (Trandate) 100 mg PO BID [facility] Last Admin: 02/14/17 16:30 Dose: 100 mg Lactobacillus Acidophilus (Bacid Acidophilus) 1 cap PO BID [facility] Last Admin: 02/14/17 16:31 Dose: 1 cap Linezolid (Zyvox) 600 mg PO Q12 [facility] PRN Reason: Protocol Last Admin: 02/14/17 22:46 Dose: 600 mg Multivitamins/Vitamin C (Multi-Delyn Liquid) 5 ml PO DAILY [facility] Last Admin: 02/14/17 09:37 Dose: 5 ml Rivaroxaban (Xarelto) 15 mg PO QD5 [facility] PRN Reason: Protocol Last Admin: 02/13/17 17:04 Dose: Not Given - Labs Labs: 02/13/17 05:45 02/13/17 05:45 Assessment and Plan (1) Acute respiratory failure with hypercapnia Status: Acute (2) Pneumonia Status: Acute (3) Dehydration Status: Acute (4) Respiratory distress Status: Acute (5) Atrial fibrillation Status: Chronic
[2017-02-15] MEDS: Acetylcysteine 10% 4 ML IH SCH ×2 (07:09→21:23)
[2017-02-15] MEDS: Insulin Regular 100 units/ml SC SCH ×3 (08:03→22:07)
[2017-02-15] MEDS: Lactobacillus Acidophilus 500 MU Cap PO SCH ×2 (09:53→17:57)
[2017-02-15] MEDS: Multiple Vitamins Oral Solution PO SCH (09:55)
--- NOTE | 2017-02-15 12:33 | RAD ---
PROCEDURE: CHEST RADIOGRAPH, 1 VIEW HISTORY: PNEUMONIA COMPARISON: 02/13/2017 FINDINGS: LUNGS: Bilateral infiltrates and effusions. PLEURA: See above CARDIOVASCULAR: Cardiomegaly OSSEOUS STRUCTURES: No significant abnormalities. VISUALIZED UPPER ABDOMEN: Normal. OTHER FINDINGS: Tracheostomy tube in place. IMPRESSION: Bilateral infiltrates and effusions compatible with CHF. Findings worsened since 02/13/2017
[2017-02-16] MEDS: Albuterol-Ipratrop 3 mg / 0.5 (3 ml) UD INH SCH ×4 (01:04→19:15)
[2017-02-16] MEDS: Insulin Regular 100 units/ml SC SCH ×4 (06:45→22:38)
[2017-02-16] MEDS: Acetylcysteine 10% 4 ML IH SCH ×2 (07:38→19:15)
[2017-02-16] MEDS ORDERED: ceFAZolin IV 1 gm in Dextrose 1 GM/50 ML BAG IVPB ONE (09:00)
[2017-02-16] MEDS: Multiple Vitamins Oral Solution PO SCH (09:16)
[2017-02-16] MEDS: Lactobacillus Acidophilus 500 MU Cap PO SCH ×2 (09:16→17:00)
--- NOTE | 2017-02-16 09:19 | CP.PCM.PN ---
Subjective - Date & Time of Evaluation Date of Evaluation: 02/16/17 Time of Evaluation: 09:21 - Subjective Subjective: NO CHANGE IN CLINICAL FINDINGS SCHEDULED FOR PEG TODAY Objective - Vital Signs/Intake and Output Vital Signs (last 24 hours): Temp Pulse Resp BP Pulse Ox 97.9 F 99 H 18 148/97 H 96 02/16/17 08:36 02/16/17 08:36 02/16/17 08:36 02/16/17 08:36 02/16/17 08:36 Intake and Output: 02/16/17 02/16/17 06:59 18:59 Output Total 1150 Balance -1150 - Medications Medications: Current Medications Acetylcysteine (Mucomyst 10% 4ml) 2 ml IH RBID [facility] Last Admin: 02/16/17 07:38 Dose: 2 ml Albuterol/Ipratropium (Duoneb 3 Mg/0.5 Mg (3 Ml) Ud) 3 ml INH RQ6 [facility] Last Admin: 02/16/17 07:37 Dose: 3 ml Amlodipine Besylate (Norvasc) 5 mg PO DAILY [facility] Last Admin: 02/15/17 09:53 Dose: 5 mg Famotidine (Pepcid) 20 mg PO BID [facility] Last Admin: 02/15/17 17:54 Dose: 20 mg Furosemide (Lasix) 20 mg IM ONCE ONE Stop: 02/16/17 14:01 Ceftazidime 1 gm/ Dextrose 50 mls @ 50 mls/hr IV Q8 [facility] PRN Reason: Protocol Last Admin: 02/16/17 00:28 Dose: 50 mls/hr Cefazolin Sodium/Dextrose (Ancef Iv 1 Gm Duplex) 1 gm in 50 mls @ 50 mls/hr IVPB ONCE ONE PRN Reason: Protocol Stop: 02/16/17 09:59 Insulin Human Regular (Humulin R) 0 units SC ACHS [facility] PRN Reason: Protocol Last Admin: 02/16/17 06:45 Dose: Not Given Labetalol HCl (Trandate) 100 mg PO BID [facility] Last Admin: 02/15/17 17:54 Dose: 100 mg Lactobacillus Acidophilus (Bacid Acidophilus) 1 cap PO BID [facility] Last Admin: 02/15/17 17:57 Dose: 1 cap Linezolid (Zyvox) 600 mg PO Q12 [facility] PRN Reason: Protocol Last Admin: 02/15/17 22:08 Dose: 600 mg Multivitamins/Vitamin C (Multi-Delyn Liquid) 5 ml PO DAILY [facility] Last Admin: 02/15/17 09:55 Dose: 5 ml Rivaroxaban (Xarelto) 15 mg PO QD5 [facility] PRN Reason: Protocol Last Admin: 02/13/17 17:04 Dose: Not Given - Labs Labs: 02/13/17 05:45 02/13/17 05:45 PT 10.7 Seconds (9.8-13.1) 02/15/17 17:47 INR 1.0 (0.9-1.2) 02/15/17 17:47 - Constitutional Appears: Chronically Ill - Head Exam Head Exam: ATRAUMATIC, NORMAL INSPECTION, NORMOCEPHALIC - Eye Exam Eye Exam: EOMI, Normal appearance, PERRL Pupil Exam: NORMAL ACCOMODATION, PERRL - ENT Exam ENT Exam: Mucous Membranes Moist, Normal Exam - Neck Exam Neck Exam: Full ROM, Normal Inspection. absent: Lymphadenopathy - Respiratory Exam Respiratory Exam: Decreased Breath Sounds, Rales Additional comments: TRACH IN PLACE - Cardiovascular Exam Cardiovascular Exam: REGULAR RHYTHM, +S1, +S2. absent: Murmur - GI/Abdominal Exam GI & Abdominal Exam: Soft, Normal Bowel Sounds. absent: Tenderness - Rectal Exam Rectal Exam: NORMAL INSPECTION - Extremities Exam Extremities Exam: absent: Joint Swelling, Pedal Edema - Back Exam Back Exam: NORMAL INSPECTION - Skin Skin Exam: Dry, Intact, Normal Color, Warm Assessment and Plan - Assessment and Plan (Free Text) Assessment: RESPIRATORY FAILURE IMPROVED PULMONARY CONGESTION WITH PLEURAL EFFUSION Plan: LASIX IV TODAY FOR PEG AND LTAC PLACEMENT
[2017-02-16] MEDS ORDERED: Glucagon Recombinant 1 mg Inj IM PRN (23:56)
[2017-02-16] MEDS ORDERED: Dextrose 50% SYRINGE Inj (50 ml) IV PRN (23:56)
[2017-02-17] MEDS: Albuterol-Ipratrop 3 mg / 0.5 (3 ml) UD INH SCH ×4 (01:34→19:30)
[2017-02-17 05:54] LABS: HEMATOCRIT 28.1 % (34.0-47.0); MEAN CELL VOLUME 89.8 fl (81.0-99.0); MEAN CORPUSCULAR HEMOGLOBIN 30.8 pg (27.0-31.0); MEAN CORPUSCULAR HGB CONC 34.3 g/dL (33.0-37.0); RED CELL DISTRIBUTION WIDTH 20.6 % (11.5-14.5); WHITE BLOOD COUNT 4.7 K/uL (4.8-10.8)
[2017-02-17 06:00] LABS: BLOOD UREA NITROGEN 25 mg/dl (7-17); CALCIUM 9.3 mg/dL (8.4-10.2); CARBON DIOXIDE 38 mmol/L (22-30); CHLORIDE 92 mmol/L (98-107); GFR AFRICAN-AMERICAN > 60; GLUCOSE,RANDOM 95 mg/dL (65-105); SODIUM 136 mmol/l (132-148)
[2017-02-17] MEDS: Insulin Regular 100 units/ml SC SCH ×4 (06:48→22:08)
[2017-02-17] MEDS: Acetylcysteine 10% 4 ML IH SCH ×2 (07:32→19:30)
--- NOTE | 2017-02-17 09:33 | CP.PCM.PN ---
Subjective - Date & Time of Evaluation Date of Evaluation: 02/17/17 Time of Evaluation: 09:33 - Subjective Subjective: LESS PULMONARY CONGESTION TODAY Objective - Vital Signs/Intake and Output Vital Signs (last 24 hours): Temp Pulse Resp BP Pulse Ox 97.8 F 120 H 20 141/87 95 02/17/17 08:00 02/17/17 08:00 02/17/17 08:00 02/17/17 04:49 02/17/17 08:00 Intake and Output: 02/17/17 02/17/17 06:59 18:59 Intake Total 250 Output Total 1400 Balance -1150 - Medications Medications: Current Medications Acetylcysteine (Mucomyst 10% 4ml) 2 ml IH RBID [facility] Last Admin: 02/17/17 07:32 Dose: 2 ml Albuterol/Ipratropium (Duoneb 3 Mg/0.5 Mg (3 Ml) Ud) 3 ml INH RQ6 [facility] Last Admin: 02/17/17 07:32 Dose: 3 ml Amlodipine Besylate (Norvasc) 5 mg PO DAILY [facility] Last Admin: 02/16/17 09:16 Dose: Not Given Dextrose (Dextrose 50% Inj) 0 ml IV STAT PRN; Protocol PRN Reason: Hypoglycemia Protocol Dextrose (Glutose 15) 0 gm PO ONCE PRN; Protocol PRN Reason: Hypoglycemia Protocol Famotidine (Pepcid) 20 mg PO BID [facility] Last Admin: 02/16/17 17:02 Dose: 20 mg Glucagon (Glucagen Diagnostic Kit) 0 mg IM STAT PRN; Protocol PRN Reason: Hypoglycemia Protocol Ceftazidime 1 gm/ Dextrose 50 mls @ 50 mls/hr IV Q8 [facility] PRN Reason: Protocol Last Admin: 02/17/17 01:01 Dose: 50 mls/hr Dextrose/Sodium Chloride (Dextrose 5%-0.9% Ns 500 Ml) 500 mls @ 70 mls/hr IV .Q7H9M [facility] Stop: 02/18/17 05:13 Last Admin: 02/17/17 05:27 Dose: 70 mls/hr Insulin Human Regular (Humulin R) 0 units SC ACHS [facility] PRN Reason: Protocol Last Admin: 02/17/17 06:48 Dose: Not Given Labetalol HCl (Trandate) 200 mg PO BID [facility] Lactobacillus Acidophilus (Bacid Acidophilus) 1 cap PO BID [facility] Last Admin: 02/16/17 17:00 Dose: 1 cap Linezolid (Zyvox) 600 mg PO Q12 [facility] PRN Reason: Protocol Last Admin: 02/16/17 22:05 Dose: 600 mg Multivitamins/Vitamin C (Multi-Delyn Liquid) 5 ml PO DAILY [facility] Last Admin: 02/16/17 09:16 Dose: Not Given Rivaroxaban (Xarelto) 15 mg PO QD5 [facility] PRN Reason: Protocol Last Admin: 02/13/17 17:04 Dose: Not Given - Labs Labs: 02/17/17 04:15 02/17/17 04:15 PT 10.7 Seconds (9.8-13.1) 02/15/17 17:47 INR 1.0 (0.9-1.2) 02/15/17 17:47 - Constitutional Appears: Chronically Ill - Head Exam Head Exam: ATRAUMATIC, NORMAL INSPECTION, NORMOCEPHALIC - Eye Exam Eye Exam: EOMI, Normal appearance, PERRL Pupil Exam: NORMAL ACCOMODATION, PERRL - ENT Exam ENT Exam: Mucous Membranes Moist, Normal Exam - Neck Exam Neck Exam: Full ROM, Normal Inspection. absent: Lymphadenopathy - Respiratory Exam Respiratory Exam: Decreased Breath Sounds, Rales Additional comments: TRACH COLLAR IN PLACE - Cardiovascular Exam Cardiovascular Exam: REGULAR RHYTHM, +S1, +S2. absent: Murmur - GI/Abdominal Exam GI & Abdominal Exam: Soft, Normal Bowel Sounds. absent: Tenderness - Rectal Exam Rectal Exam: NORMAL INSPECTION - Extremities Exam Extremities Exam: absent: Joint Swelling, Pedal Edema - Back Exam Back Exam: NORMAL INSPECTION - Neurological Exam Neurological Exam: Alert, Awake Assessment and Plan - Assessment and Plan (Free Text) Assessment: ASPIRATION PNEUMONIA PLEURAL EFFUSION CHF Plan: CONTINUE CURRENT RX
--- NOTE | 2017-02-17 09:36 | CP.PCM.CON ---
History of Present Illness - History of Present Illness History of Present Illness: I was asked to see patient by Yokasta Echavarria. [facility] is a [facility] resident with a history of HTN, CAD who presents to hospital with respiratory failure. The patient was admitted to ICU, then eventually transferred to the floor. She requires PEG tube for oral feeding. The patient was scheduled then developed tachycardia. The patient is currently on labetalol. She is not able to give a history. Review of Systems - Review of Systems Systems not reviewed;Unavailable: Altered Mental Status Past Patient History - Infectious Disease Hx of Infectious Diseases: None - Tetanus Immunizations Tetanus Immunization: Unknown - Past Medical History & Family History Past Medical History?: Yes - Past Social History Smoking Status: Never Smoked - CARDIAC Hx Cardiac Disorders: Yes Hx Cardia Arrhythmia: Yes - PULMONARY Hx Respiratory Disorders: Yes Hx Pneumonia: Yes - NEUROLOGICAL Hx Neurological Disorder: Yes Hx Dementia: Yes - HEENT Hx HEENT Problems: Yes Hx Cataracts: Yes (both eyes) - RENAL Hx Chronic Kidney Disease: No - ENDOCRINE/METABOLIC Hx Endocrine Disorders: Yes - HEMATOLOGICAL/ONCOLOGICAL Hx AIDS: No Hx Anemia: Yes Hx Human Immunodeficiency Virus (HIV): No - INTEGUMENTARY Hx Dermatological Problems: Yes Other/Comment: skin dryness - MUSCULOSKELETAL/RHEUMATOLOGICAL Hx Musculoskeletal Disorders: Yes Hx Falls: No - GASTROINTESTINAL Hx Gastrointestinal Disorders: Yes Other/Comment: Hx Peg tube. Hx Malnutrition. Hx Transaminitis - GENITOURINARY/GYNECOLOGICAL Hx Genitourinary Disorders: Yes - PSYCHIATRIC Hx Psychophysiologic Disorder: No Hx Substance Use: No (unknown) - SURGICAL HISTORY Hx Surgeries: Yes Hx Cataract Extraction: Yes (2013) Hx Eye Surgery: Yes - ANESTHESIA Hx Anesthesia: Yes Hx Anesthesia Reactions: No Hx Malignant Hyperthermia: No Meds Allergies/Adverse Reactions: Allergies Allergy/AdvReac Type Severity Reaction Status Date / Time No Known Allergies Allergy Verified 02/07/17 15:49 - Medications Medications: Current Medications Acetylcysteine (Mucomyst 10% 4ml) 2 ml IH RBID [facility] Last Admin: 02/17/17 07:32 Dose: 2 ml Albuterol/Ipratropium (Duoneb 3 Mg/0.5 Mg (3 Ml) Ud) 3 ml INH RQ6 [facility] Last Admin: 02/17/17 07:32 Dose: 3 ml Amlodipine Besylate (Norvasc) 5 mg PO DAILY [facility] Last Admin: 02/16/17 09:16 Dose: Not Given Dextrose (Dextrose 50% Inj) 0 ml IV STAT PRN; Protocol PRN Reason: Hypoglycemia Protocol Dextrose (Glutose 15) 0 gm PO ONCE PRN; Protocol PRN Reason: Hypoglycemia Protocol Famotidine (Pepcid) 20 mg PO BID [facility] Last Admin: 02/16/17 17:02 Dose: 20 mg Glucagon (Glucagen Diagnostic Kit) 0 mg IM STAT PRN; Protocol PRN Reason: Hypoglycemia Protocol Ceftazidime 1 gm/ Dextrose 50 mls @ 50 mls/hr IV Q8 [facility] PRN Reason: Protocol Last Admin: 02/17/17 01:01 Dose: 50 mls/hr Dextrose/Sodium Chloride (Dextrose 5%-0.9% Ns 500 Ml) 500 mls @ 70 mls/hr IV .Q7H9M [facility] Stop: 02/18/17 05:13 Last Admin: 02/17/17 05:27 Dose: 70 mls/hr Insulin Human Regular (Humulin R) 0 units SC ACHS [facility] PRN Reason: Protocol Last Admin: 02/17/17 06:48 Dose: Not Given Labetalol HCl (Trandate) 200 mg PO BID [facility] Labetalol HCl (Trandate) 10 mg IVP STAT [facility] Stop: 02/17/17 09:18 Lactobacillus Acidophilus (Bacid Acidophilus) 1 cap PO BID [facility] Last Admin: 02/16/17 17:00 Dose: 1 cap Linezolid (Zyvox) 600 mg PO Q12 [facility] PRN Reason: Protocol Last Admin: 02/16/17 22:05 Dose: 600 mg Multivitamins/Vitamin C (Multi-Delyn Liquid) 5 ml PO DAILY [facility] Last Admin: 02/16/17 09:16 Dose: Not Given Rivaroxaban (Xarelto) 15 mg PO QD5 [facility] PRN Reason: Protocol Last Admin: 02/13/17 17:04 Dose: Not Given Physical Exam - Constitutional Appears: Chronically Ill - Head Exam Head Exam: NORMAL INSPECTION - Eye Exam Eye Exam: Normal appearance - ENT Exam ENT Exam: Mucous Membranes Moist - Neck Exam Neck exam: Positive for: Full Rom - Respiratory Exam Respiratory Exam: Decreased Breath Sounds - Cardiovascular Exam Cardiovascular Exam: Irregular Rhythm - GI/Abdominal Exam GI & Abdominal Exam: Normal Bowel Sounds - Rectal Exam Rectal Exam: Deferred - Extremities Exam Extremities exam: Negative for: pedal edema - Back Exam Back exam: NORMAL INSPECTION - Neurological Exam Neurological exam: Alert, Oriented x3 - Psychiatric Exam Psychiatric exam: Normal Affect - Skin Skin Exam: Normal Color Results - Vital Signs Recent Vital Signs: Last Vital Signs Temp 97.8 F 02/17/17 08:00 Pulse 120 H 02/17/17 08:00 Resp 20 02/17/17 08:00 BP 141/87 02/17/17 04:49 Pulse Ox 95 02/17/17 08:00 - Labs Result Diagrams: 02/17/17 04:15 02/17/17 04:15 Labs: Laboratory Results - last 24 hr 02/16/17 02/16/17 02/16/17 11:21 16:14 22:30 WBC RBC Hgb Hct MCV MCH MCHC RDW Plt Count Sodium Potassium Chloride Carbon Dioxide Anion Gap BUN Creatinine Est GFR ( Amer) Est GFR (Non-Af Amer) POC Glucose (mg/dL) 111 H 130 H 115 H Random Glucose Calcium 02/17/17 02/17/17 02/17/17 04:15 04:15 04:52 WBC 4.7 L RBC 3.13 L Hgb 9.7 L Hct 28.1 L MCV 89.8 D MCH 30.8 MCHC 34.3 RDW 20.6 H Plt Count 271 Sodium 136 Potassium 4.0 Chloride 92 L Carbon Dioxide 38 H Anion Gap 10 BUN 25 H Creatinine 0.8 Est GFR ( Amer) > 60 Est GFR (Non-Af Amer) > 60 POC Glucose (mg/dL) 90 Random Glucose 95 Calcium 9.3 - EKG Data EKG Interpreted by: Myself EKG shows normal: Sinus rhythm Assessment & Plan (1) Tachycardia Assessment and Plan: likley a component of dehydration. rhythm reveals sinus tachycardia with APCs. The patient will require increased labetalol. if HR <100, no cardiac contraindication to PEG placement. Status: Acute (2) HTN (hypertension) Assessment and Plan: increase labetalol Status: Acute
[2017-02-17] MEDS: Labetalol 5 mg/ml Inj 20ML IVP ONE ×2 (09:51→18:42)
[2017-02-17] MEDS: Lactobacillus Acidophilus 500 MU Cap PO SCH ×2 (09:54→17:40)
[2017-02-17] MEDS: Multiple Vitamins Oral Solution PO SCH (09:54)
--- NOTE | 2017-02-17 13:15 | CP.PCM.PN ---
Subjective - Date & Time of Evaluation Date of Evaluation: 02/16/17 Time of Evaluation: 12:00 - Subjective Subjective: pt for peg today Objective - Vital Signs/Intake and Output Vital Signs (last 24 hours): Temp Pulse Resp BP Pulse Ox 97.3 F L 88 20 168/98 H 97 02/17/17 12:00 02/17/17 12:00 02/17/17 12:00 02/17/17 12:00 02/17/17 12:00 Intake and Output: 02/17/17 02/17/17 06:59 18:59 Intake Total 250 Output Total 1400 Balance -1150 - Medications Medications: Current Medications Acetylcysteine (Mucomyst 10% 4ml) 2 ml IH RBID [facility] Last Admin: 02/17/17 07:32 Dose: 2 ml Albuterol/Ipratropium (Duoneb 3 Mg/0.5 Mg (3 Ml) Ud) 3 ml INH RQ6 [facility] Last Admin: 02/17/17 13:00 Dose: 3 ml Amlodipine Besylate (Norvasc) 5 mg PO DAILY [facility] Last Admin: 02/17/17 09:54 Dose: Not Given Dextrose (Dextrose 50% Inj) 0 ml IV STAT PRN; Protocol PRN Reason: Hypoglycemia Protocol Dextrose (Glutose 15) 0 gm PO ONCE PRN; Protocol PRN Reason: Hypoglycemia Protocol Famotidine (Pepcid) 20 mg PO BID [facility] Last Admin: 02/17/17 09:55 Dose: Not Given Glucagon (Glucagen Diagnostic Kit) 0 mg IM STAT PRN; Protocol PRN Reason: Hypoglycemia Protocol Ceftazidime 1 gm/ Dextrose 50 mls @ 50 mls/hr IV Q8 [facility] PRN Reason: Protocol Last Admin: 02/17/17 09:57 Dose: 50 mls/hr Dextrose/Sodium Chloride (Dextrose 5%-0.9% Ns 500 Ml) 500 mls @ 70 mls/hr IV .Q7H9M [facility] Stop: 02/18/17 05:13 Last Admin: 02/17/17 12:47 Dose: 70 mls/hr Insulin Human Regular (Humulin R) 0 units SC ACHS [facility] PRN Reason: Protocol Last Admin: 02/17/17 12:47 Dose: Not Given Labetalol HCl (Trandate) 200 mg PO BID [facility] Lactobacillus Acidophilus (Bacid Acidophilus) 1 cap PO BID [facility] Last Admin: 02/17/17 09:54 Dose: Not Given Linezolid (Zyvox) 600 mg PO Q12 [facility] PRN Reason: Protocol Last Admin: 02/17/17 10:04 Dose: Not Given Multivitamins/Vitamin C (Multi-Delyn Liquid) 5 ml PO DAILY [facility] Last Admin: 02/17/17 09:54 Dose: Not Given Rivaroxaban (Xarelto) 15 mg PO QD5 [facility] PRN Reason: Protocol Last Admin: 02/13/17 17:04 Dose: Not Given - Labs Labs: 02/17/17 04:15 02/17/17 04:15 PT 10.7 Seconds (9.8-13.1) 02/15/17 17:47 INR 1.0 (0.9-1.2) 02/15/17 17:47 - Respiratory Exam Respiratory Exam: Rhonchi - Cardiovascular Exam Cardiovascular Exam: Tachycardia - GI/Abdominal Exam GI & Abdominal Exam: Soft, Normal Bowel Sounds Assessment and Plan - Assessment and Plan (Free Text) Assessment: 71 yo female with dysphagia peg postponed for medical optimization cardiac clearance
[2017-02-17] MEDS ORDERED: EnalaprilAT 1.25 mg/ml Inj IV ONE (13:32)
--- NOTE | 2017-02-17 15:29 | CP.PCM.PN ---
Subjective - Date & Time of Evaluation Date of Evaluation: 02/17/17 Time of Evaluation: 12:30 - Subjective Subjective: no overnight events Objective - Vital Signs/Intake and Output Vital Signs (last 24 hours): Temp Pulse Resp BP Pulse Ox 97.3 F L 88 20 160/94 H 97 02/17/17 12:00 02/17/17 12:00 02/17/17 12:00 02/17/17 14:43 02/17/17 12:00 Intake and Output: 02/17/17 02/17/17 06:59 18:59 Intake Total 250 Output Total 1400 Balance -1150 - Medications Medications: Current Medications Acetylcysteine (Mucomyst 10% 4ml) 2 ml IH RBID [facility] Last Admin: 02/17/17 07:32 Dose: 2 ml Albuterol/Ipratropium (Duoneb 3 Mg/0.5 Mg (3 Ml) Ud) 3 ml INH RQ6 [facility] Last Admin: 02/17/17 13:00 Dose: 3 ml Amlodipine Besylate (Norvasc) 5 mg PO DAILY [facility] Last Admin: 02/17/17 09:54 Dose: Not Given Dextrose (Dextrose 50% Inj) 0 ml IV STAT PRN; Protocol PRN Reason: Hypoglycemia Protocol Dextrose (Glutose 15) 0 gm PO ONCE PRN; Protocol PRN Reason: Hypoglycemia Protocol Famotidine (Pepcid) 20 mg PO BID [facility] Last Admin: 02/17/17 09:55 Dose: Not Given Glucagon (Glucagen Diagnostic Kit) 0 mg IM STAT PRN; Protocol PRN Reason: Hypoglycemia Protocol Ceftazidime 1 gm/ Dextrose 50 mls @ 50 mls/hr IV Q8 [facility] PRN Reason: Protocol Last Admin: 02/17/17 09:57 Dose: 50 mls/hr Dextrose/Sodium Chloride (Dextrose 5%-0.9% Ns 500 Ml) 500 mls @ 70 mls/hr IV .Q7H9M [facility] Stop: 02/18/17 05:13 Last Admin: 02/17/17 12:47 Dose: 70 mls/hr Insulin Human Regular (Humulin R) 0 units SC ACHS [facility] PRN Reason: Protocol Last Admin: 02/17/17 12:47 Dose: Not Given Labetalol HCl (Trandate) 200 mg PO BID [facility] Lactobacillus Acidophilus (Bacid Acidophilus) 1 cap PO BID [facility] Last Admin: 02/17/17 09:54 Dose: Not Given Linezolid (Zyvox) 600 mg PO Q12 [facility] PRN Reason: Protocol Last Admin: 02/17/17 10:04 Dose: Not Given Multivitamins/Vitamin C (Multi-Delyn Liquid) 5 ml PO DAILY [facility] Last Admin: 02/17/17 09:54 Dose: Not Given Rivaroxaban (Xarelto) 15 mg PO QD5 [facility] PRN Reason: Protocol Last Admin: 02/13/17 17:04 Dose: Not Given - Labs Labs: 02/17/17 04:15 02/17/17 04:15 PT 10.7 Seconds (9.8-13.1) 02/15/17 17:47 INR 1.0 (0.9-1.2) 02/15/17 17:47 - Neck Exam Neck Exam: Normal Inspection - Respiratory Exam Respiratory Exam: Rales - Cardiovascular Exam Cardiovascular Exam: Tachycardia - GI/Abdominal Exam GI & Abdominal Exam: Soft, Normal Bowel Sounds Assessment and Plan - Assessment and Plan (Free Text) Assessment: 71 yo female with dysphagia plan for peg tomorrow if clinically stable
[2017-02-17] MEDS ORDERED: Labetalol 5mg/ml (4ml) IVP SCH (18:30)
[2017-02-18] MEDS: Labetalol 5 mg/ml Inj 20ML IVP SCH ×3 (00:19→17:33)
[2017-02-18] MEDS: Albuterol-Ipratrop 3 mg / 0.5 (3 ml) UD INH SCH ×4 (01:00→19:20)
[2017-02-18] MEDS: Insulin Regular 100 units/ml SC SCH ×4 (06:53→22:37)
[2017-02-18] MEDS: Acetylcysteine 10% 4 ML IH SCH ×2 (07:45→19:20)
--- NOTE | 2017-02-18 08:49 | CP.PCM.PN ---
Subjective - Date & Time of Evaluation Date of Evaluation: 02/18/17 Time of Evaluation: 08:49 - Subjective Subjective: MODERATE TRACH SECRETIONS--SUCTIONED Objective - Vital Signs/Intake and Output Vital Signs (last 24 hours): Temp Pulse Resp BP Pulse Ox 97.4 F L 84 20 148/87 100 02/18/17 08:07 02/18/17 08:07 02/18/17 08:07 02/18/17 08:07 02/18/17 08:07 - Medications Medications: Current Medications Acetylcysteine (Mucomyst 10% 4ml) 2 ml IH RBID [facility] Last Admin: 02/18/17 07:45 Dose: 2 ml Albuterol/Ipratropium (Duoneb 3 Mg/0.5 Mg (3 Ml) Ud) 3 ml INH RQ6 [facility] Last Admin: 02/18/17 07:45 Dose: 3 ml Amlodipine Besylate (Norvasc) 5 mg PO DAILY [facility] Last Admin: 02/17/17 09:54 Dose: Not Given Dextrose (Dextrose 50% Inj) 0 ml IV STAT PRN; Protocol PRN Reason: Hypoglycemia Protocol Dextrose (Glutose 15) 0 gm PO ONCE PRN; Protocol PRN Reason: Hypoglycemia Protocol Famotidine (Pepcid) 20 mg PO BID [facility] Last Admin: 02/17/17 17:42 Dose: Not Given Glucagon (Glucagen Diagnostic Kit) 0 mg IM STAT PRN; Protocol PRN Reason: Hypoglycemia Protocol Ceftazidime 1 gm/ Dextrose 50 mls @ 50 mls/hr IV Q8 [facility] PRN Reason: Protocol Last Admin: 02/18/17 00:13 Dose: 50 mls/hr Insulin Human Regular (Humulin R) 0 units SC ACHS [facility] PRN Reason: Protocol Last Admin: 02/18/17 06:53 Dose: 1 units Labetalol HCl (Trandate) 200 mg PO BID [facility] Last Admin: 02/17/17 17:42 Dose: Not Given Labetalol HCl (Trandate) 10 mg IVP Q8 [facility] Last Admin: 02/18/17 00:19 Dose: 10 mg Lactobacillus Acidophilus (Bacid Acidophilus) 1 cap PO BID [facility] Last Admin: 02/17/17 17:40 Dose: Not Given Linezolid (Zyvox) 600 mg PO Q12 [facility] PRN Reason: Protocol Last Admin: 02/17/17 21:29 Dose: Not Given Multivitamins/Vitamin C (Multi-Delyn Liquid) 5 ml PO DAILY [facility] Last Admin: 02/17/17 09:54 Dose: Not Given Rivaroxaban (Xarelto) 15 mg PO QD5 [facility] PRN Reason: Protocol Last Admin: 02/13/17 17:04 Dose: Not Given - Labs Labs: 02/17/17 04:15 02/17/17 04:15 PT 10.7 Seconds (9.8-13.1) 02/15/17 17:47 INR 1.0 (0.9-1.2) 02/15/17 17:47 - Constitutional Appears: Chronically Ill - Head Exam Head Exam: ATRAUMATIC, NORMAL INSPECTION, NORMOCEPHALIC - Eye Exam Eye Exam: EOMI, Normal appearance, PERRL Pupil Exam: NORMAL ACCOMODATION, PERRL - ENT Exam ENT Exam: Mucous Membranes Moist, Normal Exam - Neck Exam Neck Exam: Full ROM, Normal Inspection. absent: Lymphadenopathy - Respiratory Exam Respiratory Exam: Decreased Breath Sounds, Rales, NORMAL BREATHING PATTERN - Cardiovascular Exam Cardiovascular Exam: REGULAR RHYTHM, +S1, +S2. absent: Murmur - GI/Abdominal Exam GI & Abdominal Exam: Soft, Normal Bowel Sounds. absent: Tenderness - Rectal Exam Rectal Exam: NORMAL INSPECTION - Extremities Exam Extremities Exam: Full ROM, Normal Capillary Refill, Normal Inspection. absent : Joint Swelling, Pedal Edema - Back Exam Back Exam: NORMAL INSPECTION - Neurological Exam Neurological Exam: Alert, Awake, CN II-XII Intact - Skin Skin Exam: Dry, Intact, Normal Color, Warm Assessment and Plan - Assessment and Plan (Free Text) Assessment: ASPIRATION PNEUMONIA MUCUS PLUGGING OF AIRWAYS Plan: CONTINUE PULMONARY TOILETRY FOR PEG AWAITING PLACEMENT
--- NOTE | 2017-02-18 09:25 | CON ---
DATE: 02/13/2017 REASON FOR CONSULTATION: Dysphagia HISTORY OF PRESENT ILLNESS: This is a 71-year-old [facility] resident, states she had shortness of breath, tracheostomy, comes in. GI is called in for dysphagia. The patient is not eating, and GI is called for that. PAST MEDICAL HISTORY: dementia, COPD, anemia, diabetes. PAST SURGICAL HISTORY: Noncontributory. MEDICATIONS: Have been reviewed. REVIEW OF SYSTEMS: Unable to obtain. PHYSICAL EXAMINATION: VITAL SIGNS: In the hospital, grossly unremarkable. GENERAL: This is a pleasant elderly appearing female lying in bed comfortable, in no apparent distress. HEENT: Head is normocephalic, atraumatic. Eyes, pupils equally reactive to light bilaterally. No conjunctival pallor or icterus. NECK: Supple. Normal range of motion. No lymphadenopathy appreciated. LUNGS: Coarse breath sounds bilaterally. HEART: S1, S2, regular rate and rhythm. No S3. ABDOMEN: Soft, nontender. Bowel sounds present. No rebound, no guarding. RECTAL: Deferred. EXTREMITIES: Pulses bilaterally. SKIN: Warm, dry and intact. NEUROLOGIC: A and O x3. Responds to pain. LABORATORY DATA: Include WBC is 4.6, hemoglobin 7.1. ASSESSMENT AND PLAN: This is a 71-year-old for dysphagia. plan for peg once cleared by cardio. Jones Camara MD/ PhD CON
[2017-02-18] MEDS: Lactobacillus Acidophilus 500 MU Cap PO SCH ×2 (09:34→17:05)
[2017-02-18] MEDS: Multiple Vitamins Oral Solution PO SCH (09:34)
[2017-02-18] MEDS ORDERED: ceFAZolin IV 1 gm in Dextrose 1 GM/50 ML BAG IVPB ONE (11:20)
[2017-02-18] MEDS: Dextrose 5%/0.9% NS 1,000 ML IV SCH (13:00)
[2017-02-18] MEDS ORDERED: Lactated Ringer's 1,000 ML IV ONE ×2 (14:51→14:55)
--- NOTE | 2017-02-18 18:23 | CP.PCM.PN ---
Subjective - Date & Time of Evaluation Date of Evaluation: 02/18/17 Time of Evaluation: 10:00 - Subjective Subjective: No acute overnight events. Patient seen and examined with attneding this AM. Patient lying in bed. No acute distress. HR 80s. Scheduled for PEG tube today if HR remains below 100. seen by cardiology. Objective - Vital Signs/Intake and Output Vital Signs (last 24 hours): Temp Pulse Resp BP Pulse Ox 97.3 F L 76 16 149/100 H 97 02/18/17 16:52 02/18/17 17:33 02/18/17 16:52 02/18/17 17:33 02/18/17 16:52 Intake and Output: 02/18/17 02/18/17 06:59 18:59 Intake Total 100 Balance 100 - Medications Medications: Current Medications Acetylcysteine (Mucomyst 10% 4ml) 2 ml IH RBID COUNTS INCLUDE 234 BEDS AT THE [facility] Last Admin: 02/18/17 07:45 Dose: 2 ml Albuterol/Ipratropium (Duoneb 3 Mg/0.5 Mg (3 Ml) Ud) 3 ml INH RQ6 COUNTS INCLUDE 234 BEDS AT THE [facility] Last Admin: 02/18/17 13:35 Dose: 3 ml Amlodipine Besylate (Norvasc) 5 mg PO DAILY COUNTS INCLUDE 234 BEDS AT THE [facility] Last Admin: 02/18/17 09:35 Dose: Not Given Dextrose (Dextrose 50% Inj) 0 ml IV STAT PRN; Protocol PRN Reason: Hypoglycemia Protocol Dextrose (Glutose 15) 0 gm PO ONCE PRN; Protocol PRN Reason: Hypoglycemia Protocol Famotidine (Pepcid) 20 mg PO BID COUNTS INCLUDE 234 BEDS AT THE [facility] Last Admin: 02/18/17 17:05 Dose: Not Given Glucagon (Glucagen Diagnostic Kit) 0 mg IM STAT PRN; Protocol PRN Reason: Hypoglycemia Protocol Ceftazidime 1 gm/ Dextrose 50 mls @ 50 mls/hr IV Q8 [facility] PRN Reason: Protocol Last Admin: 02/18/17 17:33 Dose: 50 mls/hr Dextrose/Sodium Chloride (Dextrose 5%/0.9% Ns 1000 Ml) 1,000 mls @ 70 mls/hr IV .[id number] COUNTS INCLUDE 234 BEDS AT THE [facility] Stop: 02/19/17 13:25 Last Admin: 02/18/17 13:00 Dose: 70 mls/hr Insulin Human Regular (Humulin R) 0 units SC ACHS COUNTS INCLUDE 234 BEDS AT THE [facility] PRN Reason: Protocol Last Admin: 02/18/17 17:05 Dose: Not Given Labetalol HCl (Trandate) 200 mg PO BID COUNTS INCLUDE 234 BEDS AT THE [facility] Last Admin: 02/18/17 17:05 Dose: Not Given Labetalol HCl (Trandate) 10 mg IVP Q8 COUNTS INCLUDE 234 BEDS AT THE [facility] Last Admin: 02/18/17 17:33 Dose: 10 mg Lactobacillus Acidophilus (Bacid Acidophilus) 1 cap PO BID COUNTS INCLUDE 234 BEDS AT THE [facility] Last Admin: 02/18/17 17:05 Dose: Not Given Linezolid (Zyvox) 600 mg PO Q12 COUNTS INCLUDE 234 BEDS AT THE [facility] PRN Reason: Protocol Last Admin: 02/18/17 09:35 Dose: Not Given Multivitamins/Vitamin C (Multi-Delyn Liquid) 5 ml PO DAILY COUNTS INCLUDE 234 BEDS AT THE [facility] Last Admin: 02/18/17 09:34 Dose: Not Given Rivaroxaban (Xarelto) 15 mg PO QD5 COUNTS INCLUDE 234 BEDS AT THE [facility] PRN Reason: Protocol Last Admin: 02/13/17 17:04 Dose: Not Given - Labs Labs: 02/17/17 04:15 02/17/17 04:15 PT 10.7 Seconds (9.8-13.1) 02/15/17 17:47 INR 1.0 (0.9-1.2) 02/15/17 17:47 - Constitutional Appears: Non-toxic - Head Exam Head Exam: NORMOCEPHALIC - Respiratory Exam Respiratory Exam: Clear to Ausculation Bilateral Additional comments: trach collar in place - Cardiovascular Exam Cardiovascular Exam: REGULAR RHYTHM, +S1, +S2 - GI/Abdominal Exam GI & Abdominal Exam: Soft. absent: Distended - Extremities Exam Extremities Exam: absent: Pedal Edema - Skin Skin Exam: Dry, Normal Color, Warm Assessment and Plan - Assessment and Plan (Free Text) Assessment: 71 year old female with acute respiratory failure S/p PEG tube placement.Currently being treated for UTI. # Acute respiratory failure # UTI # Type 2 DM # Chronic Anemia # Chronic Atrial fibrilation # Prophylaxis - On Ceftazidime and Zyvox - Continue with Sliding scale - HR has been in sinus rhythym, continue labetolol - urine culture +yeast - Continue digoxin/labetolol/norvasc - Pepcid for GI prophylaxis
[2017-02-19] MEDS: Albuterol-Ipratrop 3 mg / 0.5 (3 ml) UD INH SCH ×3 (00:59→13:24)
[2017-02-19] MEDS: Labetalol 5 mg/ml Inj 20ML IVP SCH ×2 (01:06→10:27)
[2017-02-19] MEDS: Dextrose 5%/0.9% NS 1,000 ML IV SCH (04:06)
[2017-02-19] MEDS: Insulin Regular 100 units/ml SC SCH ×3 (06:41→16:30)
[2017-02-19] MEDS: Acetylcysteine 10% 4 ML IH SCH (08:20)
--- NOTE | 2017-02-19 09:32 | CP.PCM.PN ---
Subjective - Date & Time of Evaluation Date of Evaluation: 02/19/17 Time of Evaluation: 09:32 - Subjective Subjective: NO NEW CLINICAL FINDINGS LESS TRACH SECRETIONS S/P PEG Objective - Vital Signs/Intake and Output Vital Signs (last 24 hours): Temp Pulse Resp BP Pulse Ox 97.8 F 58 L 18 149/98 H 99 02/19/17 08:20 02/19/17 08:20 02/19/17 08:20 02/19/17 08:20 02/19/17 08:20 Intake and Output: 02/19/17 02/19/17 06:59 18:59 Intake Total 1340 Output Total 220 Balance 1120 - Medications Medications: Current Medications Acetylcysteine (Mucomyst 10% 4ml) 2 ml IH RBID [facility] Last Admin: 02/19/17 08:20 Dose: 2 ml Albuterol/Ipratropium (Duoneb 3 Mg/0.5 Mg (3 Ml) Ud) 3 ml INH RQ6 [facility] Last Admin: 02/19/17 08:19 Dose: 3 ml Amlodipine Besylate (Norvasc) 5 mg PO DAILY [facility] Last Admin: 02/18/17 09:35 Dose: Not Given Dextrose (Dextrose 50% Inj) 0 ml IV STAT PRN; Protocol PRN Reason: Hypoglycemia Protocol Dextrose (Glutose 15) 0 gm PO ONCE PRN; Protocol PRN Reason: Hypoglycemia Protocol Famotidine (Pepcid) 20 mg PO BID [facility] Last Admin: 02/18/17 17:05 Dose: Not Given Glucagon (Glucagen Diagnostic Kit) 0 mg IM STAT PRN; Protocol PRN Reason: Hypoglycemia Protocol Ceftazidime 1 gm/ Dextrose 50 mls @ 50 mls/hr IV Q8 [facility] PRN Reason: Protocol Last Admin: 02/19/17 01:05 Dose: 50 mls/hr Dextrose/Sodium Chloride (Dextrose 5%/0.9% Ns 1000 Ml) 1,000 mls @ 70 mls/hr IV .[id number] [facility] Stop: 02/19/17 13:25 Last Admin: 02/19/17 04:06 Dose: 70 mls/hr Insulin Human Regular (Humulin R) 0 units SC ACHS [facility] PRN Reason: Protocol Last Admin: 02/19/17 06:41 Dose: 2 units Labetalol HCl (Trandate) 200 mg PO BID [facility] Last Admin: 02/18/17 17:05 Dose: Not Given Labetalol HCl (Trandate) 10 mg IVP Q8 [facility] Last Admin: 02/19/17 01:06 Dose: 10 mg Lactobacillus Acidophilus (Bacid Acidophilus) 1 cap PO BID [facility] Last Admin: 02/18/17 17:05 Dose: Not Given Linezolid (Zyvox) 600 mg PO Q12 [facility] PRN Reason: Protocol Last Admin: 02/18/17 22:39 Dose: 600 mg Multivitamins/Vitamin C (Multi-Delyn Liquid) 5 ml PO DAILY [facility] Last Admin: 02/18/17 09:34 Dose: Not Given Rivaroxaban (Xarelto) 15 mg PO QD5 [facility] PRN Reason: Protocol Last Admin: 02/13/17 17:04 Dose: Not Given - Labs Labs: 02/17/17 04:15 02/17/17 04:15 PT 10.7 Seconds (9.8-13.1) 02/15/17 17:47 INR 1.0 (0.9-1.2) 02/15/17 17:47 - Constitutional Appears: Chronically Ill - Head Exam Head Exam: ATRAUMATIC, NORMAL INSPECTION, NORMOCEPHALIC - Eye Exam Eye Exam: EOMI, Normal appearance, PERRL Pupil Exam: NORMAL ACCOMODATION, PERRL - ENT Exam ENT Exam: Mucous Membranes Moist, Normal Exam - Neck Exam Neck Exam: Full ROM, Normal Inspection. absent: Lymphadenopathy - Respiratory Exam Respiratory Exam: Clear to Ausculation Bilateral, Prolonged Expiratory Phase, Rales - Cardiovascular Exam Cardiovascular Exam: REGULAR RHYTHM, +S1, +S2. absent: Murmur - GI/Abdominal Exam GI & Abdominal Exam: Soft, Normal Bowel Sounds. absent: Tenderness - Rectal Exam Rectal Exam: NORMAL INSPECTION - Extremities Exam Extremities Exam: Full ROM, Normal Capillary Refill, Normal Inspection. absent : Joint Swelling, Pedal Edema - Back Exam Back Exam: NORMAL INSPECTION - Neurological Exam Neurological Exam: Alert, Awake - Skin Skin Exam: Dry, Intact, Normal Color, Warm Assessment and Plan - Assessment and Plan (Free Text) Assessment: RESP FAILURE-IMPROVED PNEUMONIA Plan: FOR TRANSFER TO [facility]
[2017-02-19] MEDS: Multiple Vitamins Oral Solution PO SCH (10:29)
[2017-02-19] MEDS: Lactobacillus Acidophilus 500 MU Cap PO SCH ×2 (10:30→16:57)
[2017-02-19 12:34] VITALS: O2SAT 100
[2017-02-19 15:52] VITALS: BP 112/54; PULSE 86; RESP 16; TEMP 97.7
--- NOTE | 2017-02-19 15:52 | CP.PCM.DIS ---
Provider - Provider Date of Admission: 02/07/17 15:44 Attending physician: Nura Templeton MD Consults: Pulmonary: Dr. Watson GI: Dr. Camara ID: Dr. Dias Cardiology: Dr. Mccracken Time Spent in preparation of Discharge (in minutes): 35 Diagnosis - Discharge Diagnosis (1) HTN (hypertension) Status: Chronic (2) Pneumonia Status: Acute (3) Respiratory failure Status: Acute (4) Tachycardia Status: Resolved Hospital Course - Lab Results Lab Results: Micro Results 02/13/17 Unknown Urine,Atkins Urine Culture - Final Yeast Species 02/13/17 17:49 Nose MRSA Culture (Admit) - Final MRSA NOT DETECTED 02/07/17 16:15 Blood-Venous Blood Culture - Final NO GROWTH AFTER 5 DAYS 02/07/17 16:15 Blood-Venous Gram Stain - Final TEST NOT PERFORMED 02/07/17 16:20 Blood-Venous Blood Culture - Final NO GROWTH AFTER 5 DAYS 02/07/17 16:20 Blood-Venous Gram Stain - Final TEST NOT PERFORMED 02/09/17 Unknown Drainage Gram Stain - Final 02/09/17 Unknown Drainage Wound Culture - Final No growth. 02/09/17 09:08 Trachasp Gram Stain - Final 02/09/17 09:08 Trachasp Sputum Culture - Final Stenotrophomonas Maltophilia 02/07/17 17:50 Urine,Atkins Urine Culture - Final Vancomycin Resistant E.faecium 02/08/17 14:39 Naris MRSA Culture (Admit) - Final MRSA NOT DETECTED Most Recent Lab Values WBC 4.7 K/uL (4.8-10.8) L 02/17/17 04:15 RBC 3.13 Mil/uL (3.80-5.20) L 02/17/17 04:15 Hgb 9.7 g/dL (12.0-16.0) L 02/17/17 04:15 Hct 28.1 % (34.0-47.0) L 02/17/17 04:15 MCV 89.8 fl (81.0-99.0) D 02/17/17 04:15 MCH 30.8 pg (27.0-31.0) 02/17/17 04:15 MCHC 34.3 g/dL (33.0-37.0) 02/17/17 04:15 RDW 20.6 % (11.5-14.5) H 02/17/17 04:15 Plt Count 271 K/uL (130-400) 02/17/17 04:15 MPV 7.7 fl (7.2-11.7) 02/07/17 15:51 Neut % (Auto) 74.2 % (50.0-75.0) 02/07/17 15:51 Lymph % (Auto) 16.7 % (20.0-40.0) L 02/07/17 15:51 Ware % (Auto) 7.0 % (0.0-10.0) 02/07/17 15:51 Eos % (Auto) 1.5 % (0.0-4.0) 02/07/17 15:51 Baso % (Auto) 0.6 % (0.0-2.0) 02/07/17 15:51 Neut # 5.1 K/uL (1.8-7.0) 02/07/17 15:51 Lymph # 1.1 K/uL (1.0-4.3) 02/07/17 15:51 Ware # 0.5 K/uL (0.0-0.8) 02/07/17 15:51 Eos # 0.1 K/uL (0.0-0.7) 02/07/17 15:51 Baso # 0.0 K/uL (0.0-0.2) 02/07/17 15:51 PT 10.7 Seconds (9.8-13.1) 02/15/17 17:47 INR 1.0 (0.9-1.2) 02/15/17 17:47 pCO2 62 mm/Hg (35-45) H 02/12/17 08:00 pO2 73 mm/Hg (80-100) L 02/12/17 08:00 HCO3 32.7 mmol/L (21-28) H 02/12/17 08:00 ABG pH 7.38 (7.35-7.45) 02/12/17 08:00 ABG Total CO2 38.6 mmol/L (22-28) H 02/12/17 08:00 ABG O2 Saturation 99.3 % (95-98) H 02/12/17 08:00 ABG O2 Content 12.5 ML/dL (15-23) L 02/12/17 08:00 ABG Base Excess 10.0 mmol/L (-2.0-3.0) H 02/12/17 08:00 ABG Hemoglobin 9.2 g/dL (11.7-17.4) L 02/12/17 08:00 ABG Carboxyhemoglobin 2.3 % (0.5-1.5) H 02/12/17 08:00 POC ABG HHb (Measured) 0.7 % (0.0-5.0) 02/12/17 08:00 ABG Methemoglobin 1.3 % (0.0-3.0) 02/12/17 08:00 ABG O2 Capacity 12.6 mL/dL (16-24) L 02/12/17 08:00 Rakan Test Yes 02/12/17 08:00 ABG Potassium 4.0 mmol/L (3.6-5.2) 02/07/17 19:59 A-a O2 Difference 135.0 mm/Hg 02/12/17 08:00 Hgb O2 Saturation 95.7 % (95.0-98.0) 02/12/17 08:00 Sodium 138.0 mmol/L (132-148) 02/07/17 19:59 Chloride 102.0 mmol/L (98-107) 02/07/17 19:59 Glucose 143 mg/dL (65-105) H 02/07/17 19:59 Lactate 2.0 mmol/L (0.7-2.1) 02/07/17 19:59 Vent Mode Cpap 02/09/17 04:00 Mechanical Rate 12 02/08/17 08:55 FiO2 40.0 % 02/12/17 08:00 Tidal Volume 380 02/08/17 08:55 PEEP 0 02/09/17 04:00 Pressure Support 12 02/09/17 04:00 Crit Value Called To Dr stevo davis 02/07/17 15:45 Crit Value Called By Rt 02/07/17 15:45 Crit Value Read Back Y 02/07/17 15:45 Blood Gas Notified Time 1600 02/07/17 15:45 Sodium 136 mmol/l (132-148) 02/17/17 04:15 Potassium 4.0 MMOL/L (3.6-5.0) 02/17/17 04:15 Chloride 92 mmol/L (98-107) L 02/17/17 04:15 Carbon Dioxide 38 mmol/L (22-30) H 02/17/17 04:15 Anion Gap 10 (10-20) 02/17/17 04:15 BUN 25 mg/dl (7-17) H 02/17/17 04:15 Creatinine 0.8 mg/dL (0.7-1.2) 02/17/17 04:15 Est GFR ( Amer) > 60 02/17/17 04:15 Est GFR (Non-Af Amer) > 60 02/17/17 04:15 POC Glucose (mg/dL) 115 mg/dL (65-110) H 02/19/17 12:03 Random Glucose 95 mg/dL (65-105) 02/17/17 04:15 Lactic Acid 0.6 MMOL/L (0.7-2.1) L 02/08/17 14:15 Calcium 9.3 mg/dL (8.4-10.2) 02/17/17 04:15 Iron 161 ug/dL (37-170) 02/12/17 04:20 TIBC 164 ug/dL (250-450) L 02/12/17 04:20 % Saturation 98 % (20-55) H 02/12/17 04:20 Ferritin 933.0 ng/Ml (11.1-264.0) H 02/12/17 04:20 Total Bilirubin 0.4 mg/dl (0.2-1.3) 02/13/17 05:45 AST 32 U/L (14-36) 02/13/17 05:45 ALT 45 U/L (9-52) 02/13/17 05:45 Alkaline Phosphatase 99 U/L (38-126) 02/13/17 05:45 Troponin I 0.0320 ng/mL (0.00-0.120) 02/07/17 15:51 Total Protein 7.0 G/DL (6.3-8.2) 02/13/17 05:45 Albumin 3.2 g/dL (3.5-5.0) L 02/13/17 05:45 Globulin 3.8 gm/dL (2.2-3.9) 02/13/17 05:45 Albumin/Globulin Ratio 0.8 (1.0-2.1) L 02/13/17 05:45 Procalcitonin 3.16 NG/ML (0.19-0.49) H 02/08/17 14:15 Arterial Blood Potassium 4.0 mmol/L (3.6-5.2) 02/07/17 19:59 Urine Color Yellow (YELLOW) 02/07/17 16:20 Urine Clarity Cloudy (Clear) 02/07/17 16:20 Urine pH 7.0 (5.0-8.0) 02/07/17 16:20 Ur Specific [place] 1.009 (1.003-1.030) 02/07/17 16:20 Urine Protein 100 mg/dL (NEGATIVE) 02/07/17 16:20 Urine Glucose (UA) >=500 mg/dL (Normal) 02/07/17 16:20 Urine Ketones Negative mg/dL (NEGATIVE) 02/07/17 16:20 Urine Blood Small (NEGATIVE) 02/07/17 16:20 Urine Nitrate Negative (NEGATIVE) 02/07/17 16:20 Urine Bilirubin Negative (NEGATIVE) 02/07/17 16:20 Urine Urobilinogen 0.2-1.0 mg/dL (0.2-1.0) 02/07/17 16:20 Ur Leukocyte Esterase Trace Nabeel/uL (Negative) 02/07/17 16:20 Urine RBC (Auto) 9 /hpf (0-3) H 02/07/17 16:20 Urine Microscopic WBC 10 /hpf (0-5) H 02/07/17 16:20 Urine Bacteria Rare (<OCC) 02/07/17 16:20 Hyaline Casts 0-2 /hpf (0-2) 02/07/17 16:20 Digoxin 1.2 ng/mL (0.8-2.0) 02/07/17 18:15 - Hospital Course Hospital Course: 71 year old female with history of PEG tube, afib, tracheostomy, HTN admitted with acute respiratory failure with hypercapnia, with UTI due to VRE+. Patient has been followed by Pulmonology, Dr. Watson and her respiratory failure and pneumonia are improving. Trach culture-stenotrophamonas. treated with Fortaz She did have a change in mental status during this admission, eitology is unclear. CT head was negative. She previously had a PEG tube that the patients had removed. She is s/p reinsertion of PEG tube by Dr. Camara, [facility]. She is being treated for UTI secondary to VRE, on zyvox. Patient with episodes of tachycardia 2' paroxysmal afib that have been controlled with labetolol, likely exacerbated by albuterol She has been afebrile and hemodynamically stable. Patient to be transferred to LT[facility]. - Date & Time of H&P Date of H&P: 02/08/17 Time of H&P: 10:13 Discharge Exam - Head Exam Head Exam: ATRAUMATIC, NORMAL INSPECTION, NORMOCEPHALIC - Respiratory Exam Respiratory Exam: Prolonged Expiratory Phase Additional comments: clear anteriorly - Cardiovascular Exam Cardiovascular Exam: REGULAR RHYTHM, +S1, +S2 - Skin Skin Exam: Dry, Intact, Warm Additional comments: on exposed areas Discharge Plan - Follow Up Plan Condition: GUARDED Dis[facility]
--- NOTE | 2017-02-20 15:17 | PQF SEPSIS ---
Dr. Templeton sepsis is documented in medical record but not in discharge summary. Was pt treated for a diagnosis of sepsis? If so was diagnosis present on admission? This form is a permanent part of the medical record Clarification of your documentation is requested to better reflect the severity of illness and intensity of treatment of your patient. Indicators present [] Temp < 96.8 or > 100.4 [] WBC count > 12,000/mm3 or <000/mm3 or 10% immature neutrophils [] Heart Rate > 90 [] Respiratory Rate > 20 [] Fever or hypothermia [] Chills [] Positive blood cultures [] Hypotension [] Metabolic acidosis (Elevated lactate level, anion gap or reduced blood pH) [] Acute confusion /Altered Mental Status [] Shock [] Other: [] Location in the medical record that reflects the above clinical findings: [] Treatment Provided: [] PHYSICIAN'S RESPONSE Based on your medical judgment of the clinical indicators outlined above, are you treating this patient for a known or suspected: [] Sepsis / Septicemia Please specify organism if known [] [] SIRS (Systemic Inflammatory Response Syndrome) [] Severe Sepsis (Sepsis with Associated Organ Dysfunction) [] Fever of Unknown Origin [] Other, please indicate: [] [] If Unable to Determine, please check the box, sign and date. Present On Admission (POA) Indicator: [] Present at the time of admission [] Not present at the time of admission [] Clinically Undetermined In responding to this query, please exercise your independent professional judgment. The fact that a question is asked does not imply that any particular answer is desired or expected. Thank you for your clarification on this documentation. If you have any questions please call:[ ] * Thank you, [ ]Vale Adhikari volcanology teacher CON
== END 2017-02-19 20:00 | DRG 207 ==
LOC: H.ER 15:31 → H.ERHOLD 15:44 → H.ICU/CCU 02-08 10:07 → H.TEL 02-13 18:20
PROVIDERS: ADMIT Family Medicine; ATTEND Family Medicine
PROC: 5A1955Z Respiratory Ventilation, Greater than 96 Consecutive Hours (ICD-10-PCS; principal; 2017-02-07)
PROC: 3E0G76Z Introduction of Nutritional Substance into Upper GI, Via Natural or Artificial Opening (ICD-10-PCS; 2017-02-07)
PROC: 0DH63UZ Insertion of Feeding Device into Stomach, Percutaneous Approach (ICD-10-PCS; 2017-02-18)
DX: J69.0 Pneumonitis due to inhalation of food and vomit (principal); G93.1 Anoxic brain damage, not elsewhere classified; T17.890A Other foreign object in other parts of respiratory tract causing asphyxiation, initial encounter; I48.0 Paroxysmal atrial fibrillation; J96.21 Acute and chronic respiratory failure with hypoxia; E11.65 Type 2 diabetes mellitus with hyperglycemia; R13.10 Dysphagia, unspecified; I50.9 Heart failure, unspecified; I11.0 Hypertensive heart disease with heart failure; E87.5 Hyperkalemia; Z99.11 Dependence on respirator [ventilator] status; J96.01 Acute respiratory failure with hypoxia; E86.0 Dehydration; J96.02 Acute respiratory failure with hypercapnia; N39.0 Urinary tract infection, site not specified; Z93.0 Tracheostomy status; J44.9 Chronic obstructive pulmonary disease, unspecified; F03.90 Unspecified dementia, unspecified severity, without behavioral disturbance, psychotic disturbance, mood disturbance, and anxiety; I48.2 Chronic atrial fibrillation; D63.8 Anemia in other chronic diseases classified elsewhere; Z93.1 Gastrostomy status; E78.00 Pure hypercholesterolemia, unspecified; Z74.01 Bed confinement status; I25.10 Atherosclerotic heart disease of native coronary artery without angina pectoris; T38.0X5A Adverse effect of glucocorticoids and synthetic analogues, initial encounter; E61.1 Iron deficiency; B95.2 Enterococcus as the cause of diseases classified elsewhere; Z16.21 Resistance to vancomycin; B96.89 Other specified bacterial agents as the cause of diseases classified elsewhere